=== PATIENT | female | born 1970 | race Asian ===

== ENCOUNTER 2024-06-03 09:37 | Emergency (ER) | payer MEDICAID, SELFPAY ==
--- NOTE | 2024-06-03 09:40 | EKG_ITS ---
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
[2024-06-03 09:59] VITALS: BP 153/72; PULSE 82; RESP 16; TEMP 36.8; O2SAT 95; BMI 26.7
--- NOTE | 2024-06-03 10:13 | XR_ITS ---
Examination: PA lateral chest 2 views TECHNIQUE: Upright PA lateral chest 2 views Exam date and time: June 03, 2024 10:44 AM Comparison December 05, 2022 INDICATIONS: Chest pain today FINDINGS: Mild heart failure Mild enlargement cardiac contour Prominent vascular congestion with fluid in the fissures on the lateral view Pneumonia versus mild edema at the left lung base IMPRESSION: Mild heart failure Pneumonia versus mild edema at the left lung base clinical correlation advised
--- NOTE | 2024-06-03 10:13 | XR_ITS ---
Examination: AP pelvis single view TECHNIQUE: AP pelvis single view Exam date and time: June 03, 2024 1047 hours INDICATIONS: Patient fell today with into the pelvis, pelvic pain FINDINGS: Severe osteopenia No hip fractures or hip dislocations Bones of the pelvis intact IMPRESSION: No acute hip or pelvic fracture Given the severe osteopenia, suggest short-term follow-up AP pelvis as clinically warranted
--- NOTE | 2024-06-03 10:13 | XR_ITS ---
Examination: CT brain head without contrast. 2-D sagittal coronal reconstructions Date and time of exam:June 03, 2024 1023 hours INDICATIONS: Onset dizziness today CTDI: vol (mGy):45.5 DLP: (mGycm):919 Technique: Multiple CT axial sections of the brain have been obtained, 5 mm slice thickness. Contrast has not been administered. 2-D sagittal, coronal reconstructions have been obtained Low dose protocols were performed. One or more of the following dose reduction techniques were used; automated exposure control, adjustment of the mA and/or KV according to patient size, use of iterative reconstruction technique. Findings: No significant ventricular enlargement. Intra-axial or extra-axial hemorrhage density is not seen. No mass effect or midline shift Basal cisterns are not remarkable. Fourth ventricle is midline. Cranial vault intact. Heavy right vertebral artery calcification Impression: Negative for acute hemorrhage, mass effect or midline shift Heavy right vertebral artery calcification, consider carotid vertebral Doppler sonography follow-up
--- NOTE | 2024-06-03 10:14 | PD.EDRME ---
Rapid Medical Screening Exam RME Arrival date/time: 06/03/24 09:37 54-year-old female presents emerged part with complaints of syncopal episode today Chief Complaint: Syncope / Near Syncope Time Seen by Provider: 06/03/24 09:40 Vital signs: Vital Signs Temperature 98.2 F 06/03/24 09:59 Pulse Rate 82 06/03/24 09:59 Respiratory Rate 16 06/03/24 09:59 Blood Pressure 153/72 H 06/03/24 09:59 Pulse Oximetry (%) 95 06/03/24 09:59 Oxygen Delivery Method Room Air 06/03/24 09:59
[2024-06-03 11:07] LABS: Basophils % (Auto) 0 % (0-2.5); Eosinophils # (Auto) 0.2 Thou/mm3 (0.0-0.5); Eosinophils % (Auto) 2 % (0-10); Hemoglobin 11.2 g/dL (12.0-16.0); Immature Granulocytes % (Auto) 1 % (0-0); Immature Granulocytes Auto 0.04 Thou/mm3 (0.00-0.00); Lymphocytes # (Auto) 1.1 Thou/mm3 (1.0-4.8); Lymphocytes % (Auto) 15 % (10-50); Mean Corpuscular HGB Conc 32.9 g/dl (31.0-37.0); Mean Corpuscular Hemoglobin 33.3 pg (25.0-35.0); Mean Corpuscular Volume 101 fL (80-100); Monocytes # (Auto) 0.5 Thou/mm3 (0.0-0.8); Monocytes % (Auto) 6 % (0-12); Neutrophils # (Auto) 5.5 Thou/mm3 (1.8-7.7); Neutrophils % (Auto) 76 % (37-80); Nucleated Red Blood Cell % 0 /100 WBC (0); Platelet Count 172 Thou/mm3 (140-440); RDW Standard Deviation 54.4 fL (36.4-46.3); Red Blood Count 3.36 Miln/mm3 (4.00-5.20); White Blood Count 7.3 Thou/mm3 (3.6-11.0)
[2024-06-03 11:19] LABS: Partial Thromboplastin Time 25.6 Seconds (22.0-36.0); Prothrombin Time 11.3 Seconds (9.0-12.2)
[2024-06-03 11:24] LABS: Alanine Aminotransferase 12 U/L (10-49); Albumin, Serum 3.7 gm/dL (3.5-5.0); Albumin/Globulin Ratio 1.3 (1.2-2.2); Alkaline Phosphatase 86 U/L (46-116); Anion Gap 9 (7-16); Aspartate Amino Transferase 22 U/L (0-34); BUN/Creatinine Ratio 7 Ratio (12-20); Bilirubin,Total 0.7 mg/dL (0.3-1.2); Blood Urea Nitrogen 47 mg/dL (9-23); Calcium 9.4 mg/dL (8.3-10.6); Calcium (Corrected) 9.6 mg/dL (8.5-10.1); Carbon Dioxide 31.4 mMol/L (20.0-31.0); Chloride 96 mMol/L (98-107); Creatinine (Component) 6.4 mg/dL (0.6-1.3); Estimated Creatinine Clearance 9.4 mL/min (>60); Globulin 2.8 gm/dL (2.3-3.5); Glucose 137 mg/dL (74-106); Osmolality,Calculated 286 (275-295); Potassium 4.8 mMol/L (3.4-5.1); Sodium 136 mMol/L (136-145); Total Protein 6.5 gm/dL (5.7-8.2); Troponin I 0.038 ng/mL (0.0-0.045); eGFR 7 See Note
[2024-06-03 11:26] LABS: B-Type Natriuretic Peptide 3107 pg/mL (0-100)
--- NOTE | 2024-06-03 13:01 | EDNOTE_ITS ---
ED Syncope RME/HPI General Chief Complaint: Syncope / Near Syncope Stated Complaint: Syncopal episode this morning Time Seen by Provider: 06/03/24 09:40 Arrival date/time: 06/03/24 09:37 THis is a 54 year old male with complaints of fall that happened this morning. Patient reports that she was standing and looking at her phone and fell to her left side. Patient denies loss of consciousness. Patient complains of left hip pain. Patient reports that she has had leg swelling for the past 2 weeks. Patient also reports symptoms of a cough and runny nose for the past week. Patient reports that last week she had diarrhea. Patient's primary doctor is [facility]. 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 Patient has a history of T2DM on insulin, HTN, history of nephrolithiasis, end stage renal disease on dialysis. Patient reports that she is supposed to have dialysis today at 2 PM. RME / HPI RME / HPI narrative: 06/03/24 09:37 54-year-old female presents emerged part with complaints of syncopal episode today Related Data Home Medications ?Medication ?Instructions ?Recorded ?Confirmed No Known Home Medications 04/24/23 04/24/23 Allergies Allergy/AdvReac Type Severity Reaction Status Date / Time No Known Allergies Allergy Verified 04/25/23 13:53 Review of Systems Review of Systems Systems Reviewed: All systems reviewed, normal except as documented Past Medical History Past Medical History NEUROLOGIC: Negative Seizures CARDIAC: Positive Hypercholesterolemia; Negative Cardiac Disorders or Congestive Heart Failure RESPIRATORY: Negative Chronic Obstructive Pulmonary Disease (COPD) or Asthma GENITOURINARY: Positive Kidney Stones; Negative Renal Disease ENDOCRINE: Positive Endocrine Disorders and Diabetes Mellitus Type 2; Negative Diabetes Mellitus Type 1 HEMATOLOGIC: Negative Sickle Cell Disease OTHER HISTORY: Positive Hospitalization; Negative Autoimmune Disease, Blood Transfusions, Blood Transfusion Reaction or Anesthesia Reactions Family History FAMILY HISTORY: Positive Family Cardiac Disorders; Negative Family Psychiatric Problems, Family Respiratory Disorders, Family Gastrointestinal Problems, Family Cancer, Family Surgery or Family Anesthesia Reaction Surgical History SURGICAL: Positive Tubal Ligation Social History SMOKING STATUS: Never smoker SECOND HAND EXPOSURE: No SUBSTANCE USE: does not use ED Exam General General appearance: Present alert and in no apparent distress Head Head exam: Present atraumatic Eye Eye exam: Present normal appearance, PERRL and EOMI ENT ENT exam: Present normal exam, normal oropharynx and mucous membranes moist Neck Neck exam: Present normal inspection, full ROM and trachea midline Chest Chest inspection: Present normal inspection and symmetric chest wall rise Respiratory Respiratory exam: Present normal lung sounds bilaterally Cardiovascular Cardiovascular exam: Present regular rate, normal rhythm and normal heart sounds Abdominal Exam Abdominal exam: Present soft and other (nontender ) Extremities Exam Extremities exam: Present normal inspection and full ROM Back Exam Back exam: Present normal inspection and full ROM Neurological Exam Neurological exam: Present alert, oriented X3 and CN II-XII intact Psychiatric Psychiatric exam: Present normal affect and normal mood Skin Skin exam: Present warm, dry, intact and normal color Course Quality Measures none Orders Category Date Time Status Bedside COVID-19 Antigen Test NOW Care 06/03/24 13:22 Completed Bedside Influenza A&B Antigen Test NOW Care 06/03/24 13:22 Completed EKG (ED ONLY) *Do not use* NOW Care 06/03/24 09:[address] head/brain wo con Stat Exams 06/03/24 10:13 Completed EKG (ED Only) Stat Exams 06/03/24 09:40 Draft XR chest 2V Stat Exams 06/03/24 10:13 Completed XR pelvis 1-2V Stat Exams 06/03/24 10:13 Completed B-Type Natriuretic Peptide Stat Lab 06/03/24 10:40 Completed CBC Stat Lab 06/03/24 10:40 Completed Comprehensive Metabolic Panel Stat Lab 06/03/24 10:40 Completed Partial Thromboplastin Time Stat Lab 06/03/24 10:40 Completed Prothrombin Time with INR Stat Lab 06/03/24 10:40 Completed Troponin I Stat Lab 06/03/24 10:40 Completed Troponin I Stat Lab 06/03/24 13:54 Completed Acetaminophen Tab [Tylenol ES Tab] Med 06/03/24 13:25 Discontinued 1,000 mg PO X1 ONE Furosemide Inj [Lasix Inj] Med 06/03/24 13:25 Discontinued 40 mg IVP X1 ONE Furosemide [Lasix] Med 06/03/24 13:32 Discontinued 40 mg PO X1 ONE Vital Signs Vital signs: Vital Signs Temperature 98.2 F 06/03/24 09:59 Pulse Rate 82 06/03/24 09:59 Respiratory Rate 16 06/03/24 09:59 Blood Pressure 153/72 H 06/03/24 09:59 Pulse Oximetry (%) 95 06/03/24 09:59 Oxygen Delivery Method Room Air 06/03/24 09:59 Procedures -ED EKG Interpretation #1: Date of EK06/03/24 Time of EK:04 Rate: 82 Interpretation: Interpreted by me (sinus rhythm with some st depression lateral leads ) EKG Impression: No ectopy, Normal QRS and Normal intervals Syncope MDM Narrative MDM Narrative:: THis is a 54 year old male with complaints of fall that happened this morning. Patient reports that she was standing and looking at her phone and fell to her left side. Patient denies loss of consciousness. Patient complains of left hip pain. Patient reports that she has had leg swelling for the past 2 weeks. Patient also reports symptoms of a cough and runny nose for the past week. Patient reports that last week she had diarrhea. Patient's primary doctor is [facility]. 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 Patient has a history of T2DM on insulin, HTN, history of nephrolithiasis, end stage renal disease on dialysis. Patient reports that she is supposed to have dialysis today at 2 PM. CBC unremarkable. PT/INR unremarkable. bun/creatinine 47 and 6.4. BNP 3107, initial troponin is 0.038 and repeat was 0.034. Patient denies chest pain and shortness of breath. Not hypoxic or short of breath on assessment. Patient is supposed to have dialysis today. Will discharge patient to be able to get dialysis today. Patient feels comfortable with plan of care. Patient given a dose of Tylenol for pain and a dose of Lasix. Patient states she has been taking her Lasix at home. Chest x-ray shows mild edema. Do not suspect pneumonia at this time. Patient not febrile. Patient's COVID and influenza negative. Patient told to come back to the emergency room if symptoms change or worsen. chest x rays: FINDINGS: Mild heart failure Mild enlargement cardiac contour Prominent vascular congestion with fluid in the fissures on the lateral view Pneumonia versus mild edema at the left lung base IMPRESSION: Mild heart failure Pneumonia versus mild edema at the left lung base clinical correlation advised ct head: Findings: No significant ventricular enlargement. Intra-axial or extra-axial hemorrhage density is not seen. No mass effect or midline shift Basal cisterns are not remarkable. Fourth ventricle is midline. Cranial vault intact. Heavy right vertebral artery calcification Impression: Negative for acute hemorrhage, mass effect or midline shift Heavy right vertebral artery calcification, consider carotid vertebral Doppler sonography follow-up pelvis x ray: FINDINGS: Severe osteopenia No hip fractures or hip dislocations Bones of the pelvis intact IMPRESSION: No acute hip or pelvic fracture Given the severe osteopenia, suggest short-term follow-up AP pelvis as clinically warrante Patient data External records reviewed:: [facility] previous records Clinical information provided by:: patient Social determinants that could affect healthcare access:: none Patient has the following chronic illnesses:: kidney failure on dialysis How is presenting disease/condition affected by chronic disease/condition?: exacerbated by Evaluation data The following diagnostics were reviewed and interpreted by me:: lab results, radiology exam(s) and EKG tracing(s) Lab and/or radiology exams considered but not ordered:: none Interpretation Summary: see note Medications / Prescriptions Medications or Prescriptions considered but not ordered:: none Medication administrations:: Medication Administration History Discontinued Medications Acetaminophen (Acetaminophen 500 Mg Tablet) 1,000 mg PO X1 ONE Stop: 06/03/24 13:26 Last Admin: 06/03/24 13:43 Dose: 1,000 mg Documented By: ARF Furosemide (Furosemide Inj 10 Mg/Ml 4ml Vial) 40 mg IVP X1 ONE Stop: 06/03/24 13:26 Last Admin: 06/03/24 13:46 Dose: Not Given Documented By: ARF Non-Admin Reason: Discontinued Furosemide (Furosemide 40 Mg Tablet) 40 mg PO X1 ONE Stop: 06/03/24 13:33 Last Admin: 06/03/24 13:44 Dose: 40 mg Documented By: ARF see [facility] Consultations Consultation(s) initiated? (list below): No Diagnosis Syncope Differential Diagnosis: syncope due to orthostatic hypotension, subarachnoid hemorrhage, dehydration and other (fluid overload, chf exacerbation ) Most likely diagnosis given after review of the tests above:: early chf, fluid overload Admission Indicated Admission indicated?: not indicated Admission Request Was there a request for admission?: No Disposition Plan Disposition Plan: Discharge Discharge Attestation Discharge Attestation: The patient and all family members were given an opportunity to ask questions and understood the discharge instructions. Discharge instructions specifically effects, indications for sooner follow up or return to the emergency department, and the expected course of current diagnosis. Patient condition: Stable Discharge Plan Plan Patient Disposition: HOME (Self Care) Patient condition on transfer: Stable Prescriptions/Referrals Prescriptions/Med Rec: No Action No Known Home Medications Referrals: Miguel Yoder MD [Primary Care Provider] - In 1 week Problem List Clinical Impression: Chronic kidney disease with end stage renal failure on dialysis, Hypertension Patient/Caregiver Discharge Instructions Discharge Activity: activity as tolerated Education Materials: CKD Dc, ED High Blood Pressure ... Additional Instructions: Please keep scheduled appointment for dialysis today. Come back to the emergency room if symptoms change or worsen. Follow-up with primary provider in 1 to 2 days. Print Language: Polish Stand Alone Forms: Samantha Award Info., Patient Portal Info Letter PA/GENERATOR OPERATOR STRAIGHT BEVEL GEAR Supervising Physician PA/GENERATOR OPERATOR STRAIGHT BEVEL GEAR Supervising Physician: rica
[2024-06-03] MEDS: ACETAMINOPHEN 500 MG TABLET 1000 MG PO (13:43)
[2024-06-03 13:44] VITALS: BP 153/72; PULSE 80
[2024-06-03] MEDS: Furosemide 40 MG TABLET PO (13:44)
[2024-06-03 14:22] LABS: Troponin I 0.034 ng/mL (0.0-0.045)
== END 2024-06-03 14:37 | disposition home or self-care (01) ==
PROVIDERS: Nurse Practitioner Family; Nurse Practitioner Primary Care; Emergency Provider Emergency Medicine; PCP Family Medicine
DX: I13.2 Hypertensive heart and chronic kidney disease with heart failure and with stage 5 chronic kidney disease, or end stage renal disease (principal); E11.22 Type 2 diabetes mellitus with diabetic chronic kidney disease; N18.6 End stage renal disease; I50.9 Heart failure, unspecified; I67.2 Cerebral atherosclerosis; Z99.2 Dependence on renal dialysis; E78.00 Pure hypercholesterolemia, unspecified; R94.31 Abnormal electrocardiogram [ECG] [EKG]; Z79.4 Long term (current) use of insulin
CPT/HCPCS: 36415; 70450; 71046; 72170; 80053; 81001; 83880; 84484; 85025; 85610; 85730; 87400; 87811; 93005; 99284; A9270

== ENCOUNTER 2024-08-01 19:20 | Emergency (ER) | payer MEDICAID, SELFPAY ==
[2024-08-01 19:21] VITALS: BMI 29.2
[2024-08-01 19:38] VITALS: BP 168/84; PULSE 88; RESP 22; TEMP 37.8; O2SAT 96
--- NOTE | 2024-08-01 19:42 | PD.EDRME ---
Rapid Medical Screening Exam RME Arrival date/time: 08/01/24 19:20 54 yo f present to ED for c/o of swelling/abd pain, advised by PCP to come to be evaluated I have greeted and performed a focused initial assessment of this patient. A comprehensive ED assessment and evaluation of the patient, analysis of all test results, and completion of the medical decision making process will be conducted by additional ED providers. Chief Complaint: Abdominal Pain Time Seen by Provider: 08/01/24 19:25 Vital signs: Vital Signs Temperature 100.0 F 08/01/24 19:38 Pulse Rate 88 08/01/24 19:38 Respiratory Rate 22 H 08/01/24 19:38 Blood Pressure 168/84 H 08/01/24 19:38 Pulse Oximetry (%) 96 08/01/24 19:38 Oxygen Delivery Method Room Air 08/01/24 19:38
--- NOTE | 2024-08-01 19:43 | EKG_ITS ---
[facility] Test Date: 2024-08-01 Pat Name: CLAUDE GU Department: Room: - Gender: Female Icu Rn: : 1970 Requested By: Bhaskar Stewart Order Number: [id number] Reading MD: Bhaskar Stewart Measurements Intervals [place] Rate: 87 P: 70 [place]: 173 QRS: 122 QRSD: 131 T: -5 QT: 395 QTc: 477 Interpretive Statements SINUS RHYTHM INTRAVENTRICULAR CONDUCTION DELAY [130+ ms QRS DURATION] POSSIBLE RIGHT VENTRICULAR HYPERTROPHY [SOME/ALL OF: PROMINENT R IN V1, LATE TRANSITION, RAD, BROOKE, SSS] POSSIBLE ANTERIOR MYOCARDIAL INFARCTION , PROBABLY OLD [30 ms Q WAVE IN V3/V4, OR R < 0.2 mV IN V4] Compared to ECG 06/03/2024 10:04:05 Intraventricular conduction delay now present Myocardial infarct finding now present T-wave abnormality no longer present /store/S0/[id number]/[id number].pdf
[2024-08-01 21:03] LABS: Basophils % (Auto) 1 % (0-2.5); Eosinophils # (Auto) 0.1 Thou/mm3 (0.0-0.5); Eosinophils % (Auto) 1 % (0-10); Immature Granulocytes % (Auto) 0 % (0-0); Immature Granulocytes Auto 0.01 Thou/mm3 (0.00-0.00); Lymphocytes # (Auto) 0.9 Thou/mm3 (1.0-4.8); Lymphocytes % (Auto) 17 % (10-50); Mean Corpuscular HGB Conc 32.4 g/dl (31.0-37.0); Mean Corpuscular Hemoglobin 31.9 pg (25.0-35.0); Mean Corpuscular Volume 98 fL (80-100); Monocytes # (Auto) 0.6 Thou/mm3 (0.0-0.8); Monocytes % (Auto) 11 % (0-12); Neutrophils % (Auto) 71 % (37-80); Nucleated Red Blood Cell % 0 /100 WBC (0); Platelet Count 121 Thou/mm3 (140-440); RDW Standard Deviation 52.8 fL (36.4-46.3); Red Blood Count 3.76 Miln/mm3 (4.00-5.20); White Blood Count 5.6 Thou/mm3 (3.6-11.0)
[2024-08-01 21:29] LABS: B-Type Natriuretic Peptide > 3280 pg/mL (0-100)
[2024-08-01 21:30] LABS: Alanine Aminotransferase 15 U/L (10-49); Albumin, Serum 3.4 gm/dL (3.5-5.0); Albumin/Globulin Ratio 1.1 (1.2-2.2); Alkaline Phosphatase 87 U/L (46-116); Anion Gap 11 (7-16); Aspartate Amino Transferase 34 U/L (0-34); BUN/Creatinine Ratio 5 Ratio (12-20); Bilirubin,Total 0.8 mg/dL (0.3-1.2); Blood Urea Nitrogen 34 mg/dL (9-23); Calcium 8.7 mg/dL (8.3-10.6); Calcium (Corrected) 9.2 mg/dL (8.5-10.1); Carbon Dioxide 30.3 mMol/L (20.0-31.0); Chloride 95 mMol/L (98-107); Creatinine (Component) 6.2 mg/dL (0.6-1.3); Estimated Creatinine Clearance 10.2 mL/min (>60); Globulin 3.2 gm/dL (2.3-3.5); Glucose 110 mg/dL (74-106); Lipase 40 U/L (12-53); Osmolality,Calculated 280 (275-295); Potassium 4.5 mMol/L (3.4-5.1); Sodium 136 mMol/L (136-145); Total Protein 6.6 gm/dL (5.7-8.2); eGFR 8 See Note
[2024-08-01 21:37] LABS: Troponin I 0.057 ng/mL (0.0-0.045)
--- NOTE | 2024-08-01 22:38 | XR_ITS ---
Examination: CT abdomen and pelvis without contrast. Coronal 3-D reconstructions. Sagittal 2-D reconstructions. Date and time of exam:August 01, 2024 1112 hrs. Indications: Onset abdominal pain today, history kidney stones CTDI: vol (mGy): 10.2 DLP: (mGycm): 565 Technique: Axial images of the abdomen have been obtained, 3 mm slice thickness Intravenous contrast material has not been administered. Low dose protocols were performed. One or more of the following dose reduction techniques were used; automated exposure control, adjustment of the mA and/or KV according to patient size, use of iterative reconstruction technique. Findings: Moderate vascular congestion small right pleural effusion Mild to moderate enlargement cardiac contour Liver irregular in contour, anasarca Mild ascites No definite gallstones No pancreatic mass Heavy renal arterial calcification, no hydronephrosis or ureteral calculi Aorta normal size Normal appendix No bowel obstruction Atrophic uterus No adnexal mass Urinary bladder wall thickening up to 8 mm Significant osteopenia Impression: Moderate vascular congestion with small right pleural effusion Mild to moderate enlargement cardiac contour Cirrhosis Anasarca Mild ascites No bowel obstruction
[2024-08-02 01:08] VITALS: BP 182/85; PULSE 90
[2024-08-02] MEDS: Furosemide 40 MG TABLET 80 MG PO (01:08)
--- NOTE | 2024-08-02 01:14 | EDNOTE_ITS ---
ED Abdominal Pain RME/HPI General Chief Complaint: Abdominal Pain Stated complaint: SENT BY DR HUBER FOR POSS PARACENTESIS;ABD PAIN Time seen by provider: 08/01/24 19:25 Arrival date/time: 08/01/24 19:20 Source: patient Mode of arrival: ambulatory Limitations: no limitations RME / HPI RME / HPI narrative: 08/01/24 19:20 54 yo f present to ED for c/o of swelling/abd pain, advised by PCP to come to be evaluated I have greeted and performed a focused initial assessment of this patient. A comprehensive ED assessment and evaluation of the patient, analysis of all test results, and completion of the medical decision making process will be conducted by additional ED providers. DR LAMB MAIN ED EVALUATION: 54-year-old female patient with a history of end-stage renal disease on hemodialysis here for evaluation and treatment of abdominal swelling. Per patient Dr. Yap sent her in for possible paracentesis. Patient states she still makes urine. Takes furosemide 40 twice daily at home. Complains of shortness of breath which is chronic and unchanged. Related Data Previous Rx's ?Medication ?Instructions ?Recorded oseltamivir 75 mg capsule (Tamiflu) 75 mg PO BID 5 days #10 caps 08/02/24 Allergies Allergy/AdvReac Type Severity Reaction Status Date / Time No Known Allergies Allergy Verified 04/25/23 13:53 Review of Systems Review of Systems Systems Reviewed: All systems reviewed, normal except as documented Past Medical History Past Medical History NEUROLOGIC: Negative Neurological Disorders or Seizures CARDIAC: Positive Hypercholesterolemia, Edema and Hypertension (not taking meds after HD pt stated no need for meds anymore); Negative Cardiac Disorders or Congestive Heart Failure RESPIRATORY: Negative Chronic Obstructive Pulmonary Disease (COPD) or Asthma GASTROINTESTINAL: Negative Gastrointestinal Disorders or Hepatitis GENITOURINARY: Positive Genitourinary Disorders, Kidney Stones and Dialysis (MWF); Negative Renal Disease REPRODUCTIVE: Positive Previous Pregnancies MUSCULOSKELETAL: Positive Musculoskeletal Disorders and Arthritis ENT: Positive Cataracts (BILATERAL) ENDOCRINE: Positive Endocrine Disorders and Diabetes Mellitus Type 2; Negative Diabetes Mellitus Type 1 HEMATOLOGIC: Positive Blood Disorders and Anemia; Negative Sickle Cell Disease OTHER HISTORY: Positive Hospitalization and Chicken Pox; Negative Autoimmune Disease, Shingles, Blood Transfusions, Blood Transfusion Reaction, Anesthesia Reactions or Cancer Family History FAMILY HISTORY: Positive Family Cardiac Disorders; Negative Family Psychiatric Problems, Family Respiratory Disorders, Family Gastrointestinal Problems, Family Cancer, Family Surgery or Family Anesthesia Reaction Surgical History SURGICAL: Positive Tubal Ligation Social History SMOKING STATUS: Never smoker SECOND HAND EXPOSURE: No SUBSTANCE USE: does not use ED Exam Narrative Physical exam: GENERAL APPEARANCE: alert and oriented x 4, well-developed, well-nourished, no acute distress VITALS: All vitals were reviewed and the pulse ox is 95% on room air, which is normal according to my interpretation. HEENT: Normocephalic, atraumatic; pupils equal, round, reactive to light; EOMI; mucous membranes pink, moist; oropharynx clear NECK: Supple LUNGS: CTABL; no wheezes, no rales, no rhonchi HEART: Regular rate, regular rhythm; normal S1, S2; no murmurs ABDOMEN: non distended; normal BS; soft, no tenderness, no guarding, no rebound; no masses, no organomegaly, no hernia BACK: no CVA tenderness EXTREMITIES: atraumatic; no edema NEUROLOGIC: awake; alert and oriented x4; cranial nerves II-XII grossly intact; no focal sensory or motor deficits PSYCHIATRIC: appropriate mood and affect SKIN: warm, dry, normal color; no rashes General Limitations: Present no limitations Course Course Course Narrative: Discussed CT findings with patient. Small pleural effusion, mild ascites. Neither fluid collection large enough for draining. Patient incidentally found to be influenza B positive. Quality Measures none Orders Category Date Time Status Bedside COVID-19 Antigen Test NOW Care 08/02/24 00:12 Completed Bedside Influenza A&B Antigen Test NOW Care 08/02/24 00:12 Completed EKG (ED ONLY) *Do not use* NOW Care 08/01/24 19:[address] abdomen pelvis wo con Stat Exams 08/01/24 22:38 Completed EKG (ED Only) Stat Exams 08/01/24 19:43 Draft BNP [B-Type Natriuretic Peptide] Stat Lab 08/01/24 20:28 Completed CBC Stat Lab 08/01/24 20:28 Completed CMP [Comprehensive Metabolic Panel] Stat Lab 08/01/24 20:28 Completed Lipase Stat Lab 08/01/24 20:28 Completed Troponin I Stat Lab 08/01/24 20:28 Completed Furosemide [Lasix] Med 08/02/24 00:48 Discontinued 80 mg PO X1 ONE Oseltamivir [Tamiflu] Med 08/02/24 01:58 Discontinued 75 mg PO X1 ONE Vital Signs Vital signs: Vital Signs Temperature 100.0 F 08/01/24 19:38 Pulse Rate 88 08/01/24 19:38 Respiratory Rate 22 H 08/01/24 19:38 Blood Pressure 168/84 H 08/01/24 19:38 Pulse Oximetry (%) 96 08/01/24 19:38 Oxygen Delivery Method Room Air 08/01/24 19:38 Procedures -ED Procedure Comment EKG manual reading, my interpretation 08/01/241955: sinus rhythm, rate: 87 bpm, no ST elevation, no acute ischemic changes, interpreted as normal Abdominal Pain MDM MDM Narrative MDM Narrative:: Scribe Attestation: I, Arabella Solis, am scribing for and in the presence alexi Lamb. Provider Notation: Although this document has been carefully reviewed, there may still be some phonetic and other typographical errors. These errors are purely grammatical due to imperfections in the software program and should not be construed in any way to compromise the substance of the patient's medical care during this visit. Patient data External records reviewed:: [facility] previous records Clinical information provided by:: patient Social determinants that could affect healthcare access:: none Patient has the following chronic illnesses:: See PMH How is presenting disease/condition affected by chronic disease/condition?: uneffected by Evaluation data The following diagnostics were reviewed and interpreted by me:: lab results and radiology exam(s) Lab and/or radiology exams considered but not ordered:: none Interpretation Summary: I personally reviewed the radiology data and agree with the radiologist's interpretation. Examination: CT abdomen and pelvis without contrast. Coronal 3-D reconstructions. Sagittal 2-D reconstructions. Date and time of exam:August 01, 2024 1112 hrs. Indications: Onset abdominal pain today, history kidney stones Findings: Moderate vascular congestion small right pleural effusion Mild to moderate enlargement cardiac contour Liver irregular in contour, anasarca Mild ascites No definite gallstones No pancreatic mass Heavy renal arterial calcification, no hydronephrosis or ureteral calculi Aorta normal size Normal appendix No bowel obstruction Atrophic uterus No adnexal mass Urinary bladder wall thickening up to 8 mm Significant osteopenia Impression: Moderate vascular congestion with small right pleural effusion Mild to moderate enlargement cardiac contour Cirrhosis Anasarca Mild ascites No bowel obstruction Dictated By: Kong Aguilar MD Medications / Prescriptions Medications or Prescriptions considered but not ordered:: none Medication administrations:: Medication Administration History Discontinued Medications Furosemide (Furosemide 40 Mg Tablet) 80 mg PO X1 ONE Stop: 08/02/24 00:49 Last Admin: 08/02/24 01:08 Dose: 80 mg Documented By: CCT Oseltamivir Phosphate (Oseltamivir 75 Mg Capsule) 75 mg PO X1 ONE Stop: 08/02/24 01:59 Last Admin: 08/02/24 02:13 Dose: 75 mg Documented By: SE as above Consultations Consultation(s) initiated? (list below): No Diagnosis Differential diagnosis abdominal pain: abdominal pain, diverticulitis, gastroenteritis and pancreatitis Most likely diagnosis given after review of the tests above:: See clinical impression below Admission Indicated Admission indicated?: not indicated Admission Request Was there a request for admission?: No Disposition Plan Disposition Plan: Discharge Discharge Attestation Discharge Attestation: The patient and all family members were given an opportunity to ask questions and understood the discharge instructions. Discharge instructions specifically effects, indications for sooner follow up or return to the emergency department, and the expected course of current diagnosis. Patient condition: Stable Discharge Plan Plan Patient Disposition: HOME (Self Care) Prescriptions/Referrals Prescriptions/Med Rec: New oseltamivir [Tamiflu] 75 mg capsule 75 mg PO BID 5 Days Qty: 10 0RF Referrals: Diego Yap MD [Primary Care Provider] - In 1 week Problem List Clinical Impression: Influenza B, Anasarca, Abdominal ascites, Pleural effusion Patient/Caregiver Discharge Instructions Education Materials: ED Ascites, ED Influenza (Adult) Print Language: [place] Stand Alone Forms: Samantha Award Info., Patient Portal Info Letter
[2024-08-02 01:24] VITALS: BP 182/85; PULSE 88; RESP 16; TEMP 37.4; O2SAT 95
[2024-08-02] MEDS: OSELTAMIVIR 75 MG CAPSULE PO (02:13)
== END 2024-08-02 02:16 | disposition home or self-care (01) ==
PROVIDERS: Physician Assistant; Emergency Provider Emergency Medicine; PCP Internal Medicine
DX: J10.1 Influenza due to other identified influenza virus with other respiratory manifestations (principal); R18.8 Other ascites; J90 Pleural effusion, not elsewhere classified; I45.89 Other specified conduction disorders; K74.60 Unspecified cirrhosis of liver; E78.00 Pure hypercholesterolemia, unspecified; I13.11 Hypertensive heart and chronic kidney disease without heart failure, with stage 5 chronic kidney disease, or end stage renal disease; N18.6 End stage renal disease; Z99.2 Dependence on renal dialysis
CPT/HCPCS: 36415; 74176; 80053; 83690; 83880; 84484; 85025; 87400; 87811; 93005; 99284; A9270

== ENCOUNTER 2024-08-07 23:56 | Inpatient (IN) | payer MEDICAID, SELFPAY ==
[2024-08-08] VITALS (68 sets, daily range): BP systolic 105–155; BP diastolic 53–98; PULSE 66–98; RESP 3–100; TEMP 33.8–40.5; O2SAT 73–100; BMI 30.2
--- NOTE | 2024-08-08 00:28 | XR_ITS ---
Examination: AP chest single view FINDINGS: AP portable upright chest single view Exam date 9: August 08, 2024 at 0038 hours Comparison June 03, 2024 INDICATION: Coughing sepsis today. FINDINGS: Mild heart failure Mild enlargement of cardiac contour with prominent vascular congestion Consider early pneumonia at the right lung base Moderate osteopenia IMPRESSION: Mild heart failure Consider early pneumonia at the right lung base, clinical correlation is advised
--- NOTE | 2024-08-08 00:28 | PD.EDAMS ---
Altered Mental Status RME/HPI General Chief Complaint: Altered Mental Status Stated Complaint: AMS Time Seen by Provider: 08/08/24 00:03 Arrival date/time: 08/07/24 23:56 RME / HPI RME / HPI narrative: Dr. Rubin?s Main ED Evaluation: 54yo female with a history of DMII, HTN, ESRD on HD (M/W/F), cirrhosis BIBA from home presents to the ED for a chief complaint of altered mental status. Per EMS, family on scene noted the patient has been altered since 0800. No other history. Full ROS is unobtainable due to the patient's AMS. Related Data Allergies Allergy/AdvReac Type Severity Reaction Status Date / Time No Known Allergies Allergy Verified 04/25/23 13:53 Review of Systems Review of Systems ROS Unobtainable: unobtainable due to mental status ED Exam Narrative Physical exam: GENERAL APPEARANCE: awake, altered, speaks in 1 word answers well-developed, well-nourished, no acute distress VITALS: All vitals were reviewed and the pulse ox is 94% on room air, which is normal according to my interpretation. Patient is febrile. HEENT: Normocephalic, atraumatic; pupils equal, round, reactive to light; EOMI; mucous membranes pink, moist; oropharynx clear NECK: Supple LUNGS: CTABL; no wheezes, no rales, no rhonchi HEART: Regular rate, regular rhythm; normal S1, S2; no murmurs ABDOMEN: non distended; normal BS; firm, generalized abdominal tenderness, voluntary guarding, no rebound; no masses, no organomegaly, no hernia BACK: left CVA tenderness EXTREMITIES: atraumatic; extensive erythema and hot to the touch at the RLE; 2+ pitting edema up to the mid-thigh bilaterally; ringworm-like lesion to the right anterior groin NEUROLOGIC: awake; altered; cranial nerves II-XII grossly intact; no focal sensory or motor deficits; no brudzinski or kernig sign PSYCHIATRIC: appropriate mood and affect SKIN: warm, dry, normal color; no rashes Course Course Course Narrative: 0014: Sepsis alert initiated. Orders made at this time are congruent with ED Adult Sepsis Order List. Re-evaluation is to be completed. 0051: NS IVF started. 0225: Sepsis reassessment performed consisting of lab review, vitals, physical exam including auscultation of heart, lungs, and visual evaluation of capillary refills, mucosal membranes and extremities. 0241: Spoke with the patient's son at bedside, who states the patient was complaining of leg pain and swelling yesterday. Today after he came home from work, he states the patient was weak to a point where he had to carry the patient to the bed and was altered, so he called EMS. Quality Measures Possible source: skin/soft tissue Blood cultures ordered: yes Antibiotic ordered: Yes Pertinent labs: 08/08/24 00:49 Lactic Acid 4.1 H* mMol/L (0.4-2.0) Procalcitonin 120.46 H ng/ml (0.0-0.49) sepsis Orders Category Date Time Status Bedside COVID-19 Antigen Test NOW Care 08/08/24 01:[address] Screening NOW Care 08/08/24 01:37 Completed Leather Coverer STAT Care 08/08/24 00:28 Active Continuous Pulse Oximetry STAT Care 08/08/24 00:28 Completed EKG (ED ONLY) *Do not use* NOW Care 08/08/24 00:28 Completed In and Out Catheter X1PRN Care 08/08/24 00:28 Completed Insert IV NOW Care 08/08/24 00:28 Active NPO STAT Care 08/08/24 00:28 Completed Strict Intake and Output Routine Care 08/08/24 00:[address] abdomen pelvis wo con Stat Exams 08/08/24 01:[address] head/brain wo con Stat Exams 08/08/24 00:36 Completed EKG (ED Only) Stat Exams 08/08/24 00:28 Ordered XR chest 1V portable Stat Exams 08/08/24 00:28 Completed Ammonia Stat Lab 08/08/24 00:49 Completed Arterial Blood Gas Stat Lab 08/08/24 01:28 Completed B-Type Natriuretic Peptide Stat Lab 08/08/24 00:49 Completed Blood Culture (Lab) Stat Lab 08/08/24 00:44 Completed CBC Stat Lab 08/08/24 00:49 Completed Comprehensive Metabolic Panel Stat Lab 08/08/24 00:49 Completed Drug Screen,Urine Stat Lab 08/08/24 01:23 Completed HCG,Qualitative Serum Stat Lab 08/08/24 00:49 Completed Ketone [Beta Hydroxybutyrate] Stat Lab 08/08/24 00:49 Completed LDH (Lactate Dehydrogenase) Stat Lab 08/08/24 00:49 Completed Lactate (Lactic Acid) Stat Lab 08/08/24 00:49 Completed Lipase Stat Lab 08/08/24 00:49 Completed Magnesium Stat Lab 08/08/24 00:49 Completed Partial Thromboplastin Time Stat Lab 08/08/24 00:49 Completed Phosphorous Stat Lab 08/08/24 00:49 Completed Procalcitonin Stat Lab 08/08/24 00:49 Completed Prothrombin Time with INR Stat Lab 08/08/24 00:49 Completed Troponin I Stat Lab 08/08/24 00:49 Completed Urinalysis Stat Lab 08/08/24 01:26 Completed Urine Culture Stat Lab 08/08/24 01:26 Completed Acetaminophen Ivpb [Ofirmev Inj] Med 08/08/24 00:35 Discontinued 1,000 mg in 100 ml IV NOW Acetaminophen Ivpb [Ofirmev Inj] Med 08/08/24 00:34 Discontinued 1,000 mg in 100 ml IV Q6HR Doxycycline Inj [Vibramycin Inj] 200 mg Med 08/08/24 00:33 Discontinued Sodium Chloride 0.9% 250 ml [Ns] 250 ml IV X1 Piper/Tazo Inj [Zosyn Inj] 4.5 gm Med 08/08/24 00:33 Discontinued Sodium Chloride 0.9% (P) [NS 0.9% mini bag] 100 ml IV X1 Sodium Chloride 0.9% 1000 ml [Ns] 1,000 ml Med 08/08/24 00:33 Discontinued IV 999 mls/hr Sodium Chloride 0.9% 1000 ml [Ns] 1,000 ml Med 08/08/24 02:37 Discontinued IV 999 mls/hr Vital Signs Vital signs: Vital Signs Temperature 105 F H 08/08/24 00:20 Pulse Rate 92 08/08/24 00:20 Respiratory Rate 24 H 08/08/24 00:20 Blood Pressure 144/98 H 08/08/24 00:20 Pulse Oximetry (%) 94 L 08/08/24 00:20 Oxygen Delivery Method Room Air 08/08/24 00:20 Altered Mental Status MDM Narrative MDM Narrative:: Scribe Attestation: 08/08/24 - Filiberto, Anum Yoder am scribing for and in the presence of Dr. Rubin. Patient data External records reviewed:: [facility] previous records (Per chart review, patient was seen here on 08/02/24 for abdominal ascites, and was incidentally found to have Influenza B.) Clinical information provided by:: EMS Social determinants that could affect healthcare access:: none Patient has the following chronic illnesses:: DMII, HTN, ESRD on HD, cirrhosis How is presenting disease/condition affected by chronic disease/condition?: exacerbated by Evaluation data The following diagnostics were reviewed and interpreted by me:: lab results, radiology exam(s) and EKG tracing(s) Lab and/or radiology exams considered but not ordered:: none Interpretation Summary: Bedside COVID and Influenza are negative, WBC count is normal, Lactate is elevated at 4.1, Beta Hydroxybutyrate is elevated at 1.4, PT is elevated at 15.6, INR is elevated at 1.5, PTT is normal, ABG shows metabolic alkalosis, Ammonia is less than 10, BUN is 39, Creatinine is elevated at 6.9, Glucose is 68, troponin is elevated at 0.553, Procalcitonin is elevated at 120.46, UA shows 4+ proteins and 3+ glucose, UDS is negative, according to my interpretation. CXR shows cardiomegaly, normal sharp diaphragmatic edge, no infiltrates, normal costophrenic angles, according to my interpretation EKG done at 0018, NSR, rate of 93, right axis deviation, no ectopy, QTc: 457, QRS: 445, Q waves in V1-V3, generalized ST abnormalities, no STEMI, according to my interpretation. Medications / Prescriptions Medications or Prescriptions considered but not ordered:: none Medication administrations:: Medication Administration History Acetaminophen (Acetaminophen 325 Mg Tablet) 650 mg PO Q6H PRN PRN Reason: Fever >100.3 or Pain 1-3 Stop: 09/07/24 03:23 Last Admin: 08/11/24 20:59 Dose: 650 mg Documented By: Admin: 08/10/24 04:10 Dose: 650 mg Documented By: CINTHIA Dextrose (Dextrose 50%-Water Inj 50 Ml Syringe) 25 ml IV Q15MIN PRN PRN Reason: BG 50-70 responsive npo pt Stop: 09/07/24 04:54 Dextrose (Dextrose 50%-Water Inj 50 Ml Syringe) 50 ml IV Q15MIN PRN PRN Reason: BG <50 OR BG <70 & pt unresponsive Stop: 09/07/24 04:54 Cefazolin Sodium (Ancef 2gm Ivpb) 2 gm in 100 mls @ 200 mls/hr IV TUTHSA@1600 [facility] Stop: 08/22/24 16:29 Last Admin: 08/13/24 17:31 Dose: 200 mls/hr Documented By: Infusion: 08/11/24 17:38 Dose: Infused Documented By: Admin: 08/11/24 17:08 Dose: 200 mls/hr Documented By: JALEEL Melatonin (Melatonin 3 Mg Tablet) 9 mg PO HS [facility] Stop: 09/11/24 20:59 Last Admin: 08/13/24 21:38 Dose: Not Given Documented By: CTF Non-Admin Reason: Patient Refused Admin: 08/12/24 21:53 Dose: Not Given Documented By: Non-Admin Reason: Patient Refused Metoclopramide HCl (Metoclopramide 5 Mg Tablet) 10 mg PO Q6H PRN PRN Reason: NAUSEA OR VOMITING Stop: 09/07/24 03:23 Midodrine (Midodrine 5 Mg Tablet) 10 mg PO BID [facility] Stop: 09/08/24 20:59 Last Admin: 08/13/24 21:38 Dose: 10 mg Documented By: Admin: 08/13/24 16:09 Dose: Not Given Documented By: GE Non-Admin Reason: see BP Admin: 08/12/24 21:47 Dose: 10 mg Documented By: Admin: 08/12/24 08:56 Dose: Not Given Documented By: MR Non-Admin Reason: Vital Signs Admin: 08/11/24 20:34 Dose: Not Given Documented By: RC Non-Admin Reason: BP: 147/71. HOLD Admin: 08/11/24 08:28 Dose: 10 mg Documented By: Admin: 08/10/24 21:38 Dose: Not Given Documented By: AC Non-Admin Reason: hold per MD Jerome Admin: 08/10/24 08:48 Dose: 10 mg Documented By: Admin: 08/09/24 20:29 Dose: 10 mg Documented By: Discontinued Medications Hydrocodone Bitart/Acetaminophen (Hydrocodone/Apap 5/325 Tablet) 1 tab PO X1 ONE Stop: 08/08/24 14:56 Last Admin: 08/08/24 15:00 Dose: 1 tab Documented By: MM Epoetin Darrell (Epoetin Darrell-Epbx Inj 10,000 Unit/Ml Vial (Esrd)) 10,000 unit SC X1 ONE Stop: 08/08/24 09:44 Last Admin: 08/08/24 15:34 Dose: 10,000 unit Documented By: ALLA Furosemide (Furosemide Inj 10 Mg/Ml 4ml Vial) 40 mg IVP X1 ONE Stop: 08/12/24 10:02 Last Admin: 08/12/24 11:25 Dose: 40 mg Documented By: Heparin Sodium (Porcine) (Heparin Sod Inj 5000 Unit/Ml Vial) 5,000 unit SC Q12HR LIU Stop: 08/22/24 08:59 Last Admin: 08/10/24 08:49 Dose: 5,000 unit Documented By: TOMÁS Co-signed By: ULISES Admin: 08/09/24 20:42 Dose: 5,000 unit Documented By: Co-signed By: LATANYA Admin: 08/09/24 08:48 Dose: 5,000 unit Documented By: LANCE Co-signed By: JAILYN Admin: 08/08/24 20:57 Dose: 5,000 unit Documented By: LATANYA Co-signed By: Admin: 08/08/24 09:12 Dose: 5,000 unit Documented By: YAW Co-signed By: ANDRES Heparin Sodium (Porcine) (Heparin Sod Inj 1000 Unit/Ml Vial 10 Ml) 3,500 unit INDWELLCAT X1 ONE Stop: 08/08/24 13:22 Last Admin: 08/08/24 19:06 Dose: Not Given Documented By: LANCE Non-Admin Reason: HD Sodium Chloride (Ns) 1,000 mls @ 999 mls/hr IV .Q1H1M ONE Stop: 08/08/24 01:33 Last Infusion: 08/08/24 02:00 Dose: Infused Documented By: Admin: 08/08/24 00:51 Dose: 999 mls/hr Documented By: BOB Piperacillin Sod/Tazobactam (Sod 4.5 gm/ Sodium Chloride) 100 mls @ 200 mls/hr IV X1 ONE Stop: 08/08/24 01:02 Last Infusion: 08/08/24 01:40 Dose: Infused Documented By: Admin: 08/08/24 01:06 Dose: 200 mls/hr Documented By: BOB Doxycycline Hyclate 200 mg/ (Sodium Chloride) 250 mls @ 125 mls/hr IV X1 ONE Stop: 08/08/24 02:32 Last Infusion: 08/08/24 05:20 Dose: Infused Documented By: Admin: 08/08/24 03:10 Dose: 125 mls/hr Documented By: BOB Acetaminophen (Ofirmev Inj) 1,000 mg in 100 mls @ 250 mls/hr IV Q6HR LIU Stop: 08/08/24 18:23 Last Admin: 08/08/24 08:32 Dose: Not Given Documented By: DO Non-Admin Reason: Discontinued Acetaminophen (Ofirmev Inj) 1,000 mg in 100 mls @ 250 mls/hr IV NOW ONE Stop: 08/08/24 00:58 Last Infusion: 08/08/24 01:30 Dose: Infused Documented By: Admin: 08/08/24 00:56 Dose: 250 mls/hr Documented By: BOB Sodium Chloride (Ns) 1,000 mls @ 999 mls/hr IV .Q1H1M ONE Stop: 08/08/24 03:37 Last Infusion: 08/08/24 04:30 Dose: Infused Documented By: Admin: 08/08/24 03:13 Dose: 999 mls/hr Documented By: BOB Piperacillin/Tazobactam/Dextrose (Zosyn) 50 mls @ 12.5 mls/hr IV Q12HR LIU Stop: 08/15/24 08:59 Last Admin: 08/11/24 08:29 Dose: 12.5 mls/hr Documented By: Infusion: 08/11/24 01:33 Dose: Infused Documented By: Admin: 08/10/24 21:33 Dose: 12.5 mls/hr Documented By: Infusion: 08/10/24 12:40 Dose: Infused Documented By: Admin: 08/10/24 08:40 Dose: 12.5 mls/hr Documented By: Infusion: 08/10/24 00:45 Dose: Infused Documented By: Admin: 08/09/24 20:45 Dose: 12.5 mls/hr Documented By: Infusion: 08/09/24 12:48 Dose: Infused Documented By: Admin: 08/09/24 08:48 Dose: 12.5 mls/hr Documented By: Infusion: 08/09/24 00:58 Dose: Infused Documented By: Admin: 08/08/24 20:58 Dose: 12.5 mls/hr Documented By: Admin: 08/08/24 18:50 Dose: Not Given Documented By: LANCE Non-Admin Reason: pt in dialysis Doxycycline Hyclate 100 mg/ (Sodium Chloride) 100 mls @ 100 mls/hr IV BID LIU Stop: 08/15/24 08:59 Last Admin: 08/08/24 09:09 Dose: 100 mls/hr Documented By: YAW Vancomycin/Sodium Chloride (Vancomycin/Ns 1 Gm Ivpb) 200 mls @ 120 mls/hr IV X1 ONE Stop: 08/08/24 14:09 Last Admin: 08/08/24 18:51 Dose: 120 mls/hr Documented By: LANCE Vancomycin/Sodium Chloride (Vancomycin/Ns 500 Mg Ivpb) 100 mls @ 120 mls/hr IV X1 ONE Stop: 08/09/24 10:49 Last Admin: 08/09/24 10:31 Dose: 120 mls/hr Documented By: LANCE Albumin Human (Albuminar-25 Ivpb) 25 gm in 100 mls @ 100 mls/hr IV BID LIU Stop: 08/12/24 20:59 Last Admin: 08/12/24 09:03 Dose: 100 mls/hr Documented By: Infusion: 08/11/24 22:00 Dose: Infused Documented By: Admin: 08/11/24 21:00 Dose: 100 mls/hr Documented By: Infusion: 08/11/24 09:29 Dose: Infused Documented By: Admin: 08/11/24 08:29 Dose: 100 mls/hr Documented By: Infusion: 08/10/24 22:55 Dose: Infused Documented By: Admin: 08/10/24 21:55 Dose: 100 mls/hr Documented By: Infusion: 08/10/24 09:42 Dose: Infused Documented By: Admin: 08/10/24 08:42 Dose: 100 mls/hr Documented By: Infusion: 08/09/24 21:30 Dose: Infused Documented By: Admin: 08/09/24 20:29 Dose: 100 mls/hr Documented By: Vancomycin/Sodium Chloride (Vancomycin/Ns 500 Mg Ivpb) 100 mls @ 120 mls/hr IV X1 ONE Stop: 08/11/24 10:49 Last Admin: 08/11/24 10:02 Dose: 120 mls/hr Documented By: KF Melatonin (Melatonin 3 Mg Tablet) 8 mg PO HS LIU Stop: 09/11/24 20:59 Oseltamivir Phosphate (Oseltamivir 30 Mg Capsule) 30 mg PO X1 ONE Stop: 08/08/24 04:38 Last Admin: 08/08/24 06:03 Dose: 30 mg Documented By: LB Oxycodone/Acetaminophen (Oxycodone/Apap 5/325 Tablet) 1 tab PO Q6H PRN PRN Reason: PAIN SCALE 4-10(Mod-Sev Stop: 08/13/24 03:23 Last Admin: 08/08/24 13:58 Dose: 1 tab Documented By: MM Pharmacy Consult (Vancomycin Pharmacy To Dose 1 Each Each) 1 each IV QDAY PRN PRN Reason: PROTOCOL Stop: 09/07/24 12:14 Polyethylene Glycol/Electrolytes ([place]/Nahco3/Stefan/Peg (Golytely) 4,000 Ml Btl) 4,000 ml PO X1 ONE Stop: 08/12/24 20:55 Last Admin: 08/12/24 23:11 Dose: 4,000 ml Documented By: ME Polyethylene Glycol/Electrolytes ([place]/Nahco3/Stefan/Peg (Golytely) 4,000 Ml Btl) 4,000 ml PO X1 ONE Stop: 08/13/24 15:14 Potassium Chloride (Potassium Chloride 10% 20 Meq/15 Ml Udc) 20 meq PO X1 ONE Stop: 08/12/24 07:40 Last Admin: 08/12/24 08:55 Dose: 20 meq Documented By: MR Quetiapine Fumarate (Quetiapine Fumarate 25 Mg Tablet) 25 mg PO X1 ONE Stop: 08/11/24 23:41 Last Admin: 08/11/24 23:56 Dose: 25 mg Documented By: RC see above Consultations Consultation(s) initiated? (list below): Yes Consultation #1 (Physician, Specialty, Details): Discussed case with [the resident physician, attending Dr. Monsivais] from Hospitalist service regarding admission. Discussed patients ED course, exam findings, labs, and radiology results. The Hospitalist [agrees] to accept the patient for admission. Time: 02:48 Diagnosis Differential diagnosis altered mental status: sepsis and other (septic shock, cellulitis, severe sepsis, UTI, pneumonia, intra-abdominal infection, hepatic encephalopathy, meningitis, encephalitis) Most likely diagnosis given after review of the tests above:: see below Admission Indicated Admission indicated?: indicated Admission Request Was there a request for admission?: Yes Admission Attestation Admission request attestation: Discussed case with [] from Hospitalist service regarding admission. Discussed patients ED course, exam findings, labs, and radiology results. The Hospitalist [agrees,declines] to accept the patient for admission. Disposition Plan Disposition Plan: Admit Critical Care Time Critical Care Time Critical Care Time: Yes Total Critical Care Time (min.): 76 Attestation: The high probability of sudden, clinically significant deterioration in the patient?s condition required the highest level of my preparedness to intervene urgently. The services I provided to this patient were to treat and/or prevent clinically significant deterioration. Services included the following: chart data review, reviewing nursing notes and/or old charts, documentation time, [employer] consultant collaboration regarding findings and treatment options, medication orders and management, direct patient care, vital sign assessments and ordering, interpreting and reviewing diagnostic studies and lab tests. Aggregate critical care time includes only time during which I was engaged in work directly related to the patient?s care, as described above, whether at bedside or elsewhere in the Emergency Department. It did not include time spent performing other reported procedures or the services of residents, students, nurses or physician assistants. Discharge Plan Plan Patient Disposition: Admit Acute Care w/in Hospital Disposition Comment: Tele Problem List Clinical Impression: Severe sepsis with septic shock, Sepsis, End stage chronic kidney disease, Cirrhosis
--- NOTE | 2024-08-08 00:36 | XR_ITS ---
Examination: CT brain head without contrast. 2-D sagittal coronal reconstructions Date and time of exam: 2024 0127 hours INDICATIONS: Onset altered mental status today COMPARISON: June 03, 2024 CTDI: vol (mGy):48.6 DLP: (mGycm):969 Technique: Multiple CT axial sections of the brain have been obtained, 5 mm slice thickness. Contrast has not been administered. 2-D sagittal, coronal reconstructions have been obtained Low dose protocols were performed. One or more of the following dose reduction techniques were used; automated exposure control, adjustment of the mA and/or KV according to patient size, use of iterative reconstruction technique. Findings: No significant ventricular enlargement. Intra-axial or extra-axial hemorrhage density is not seen. No mass effect or midline shift Basal cisterns are not remarkable. Fourth ventricle is midline. Cranial vault intact. Impression: Negative for acute hemorrhage, mass effect or midline shift Advise clinical correlation and follow-up coronary
[2024-08-08] MEDS: SODIUM CHLORIDE 0.9% 1000 ML 1,000 ML 999 ML IV ×2 (00:51→03:13)
[2024-08-08] MEDS: ACETAMINOPHEN IVPB 1,000 MG/100 ML VIAL 250 MG IV (00:56)
[2024-08-08 01:03] LABS: Basophils # (Auto) 0.1 Thou/mm3 (0.0-0.2); Basophils % (Auto) 1 % (0-2.5); Eosinophils % (Auto) 0 % (0-10); Hematocrit 36.8 % (36.0-46.0); Hemoglobin 12.1 g/dL (12.0-16.0); Immature Granulocytes % (Auto) 2 % (0-0); Lymphocytes # (Auto) 0.7 Thou/mm3 (1.0-4.8); Lymphocytes % (Auto) 7 % (10-50); Mean Corpuscular HGB Conc 32.9 g/dl (31.0-37.0); Mean Corpuscular Hemoglobin 32.4 pg (25.0-35.0); Mean Corpuscular Volume 99 fL (80-100); Monocytes # (Auto) 0.5 Thou/mm3 (0.0-0.8); Monocytes % (Auto) 5 % (0-12); Neutrophils # (Auto) 8.8 Thou/mm3 (1.8-7.7); Neutrophils % (Auto) 86 % (37-80); Nucleated Red Blood Cell % 0 /100 WBC (0); Platelet Count 156 Thou/mm3 (140-440); RDW Standard Deviation 53.8 fL (36.4-46.3); Red Blood Count 3.73 Miln/mm3 (4.00-5.20); White Blood Count 10.2 Thou/mm3 (3.6-11.0)
[2024-08-08] MEDS: PIPER/TAZO INJ 4.5 GM in SODIUM CHLORIDE 0.9% (P) 100 ML IV (01:06)
[2024-08-08 01:11] LABS: Beta Hydroxybutyrate 1.4 mmol/L (<0.6)
[2024-08-08 01:19] LABS: Lactate (Lactic Acid) 4.1 mMol/L (0.4-2.0)
[2024-08-08 01:21] LABS: INR 1.5 (0.9-1.3); Partial Thromboplastin Time 33.3 Seconds (22.0-36.0); Prothrombin Time 15.6 Seconds (9.0-12.2)
[2024-08-08 01:29] LABS: Ammonia < 10 uMol/L (11-32); B-Type Natriuretic Peptide > 3280 pg/mL (0-100)
[2024-08-08 01:31] LABS: Base Excess 4 (-3-3); HCO3 27 mEq/L (20-26); Inspired Oxygen, FIO2 21 %; O2 Saturation 99 % (91-98); PCO2 34 mmHg (32.0-48.0); PO2 108 mmHg (83-108); pH, Arterial 7.51 (7.35-7.45)
[2024-08-08 01:31] LABS: Collection Type, Urine Clean Catch
[2024-08-08 01:32] LABS: Allen Test Not Performed; Puncture Site Right Brachial
[2024-08-08 01:36] LABS: Bilirubin,Urine 1+ (Negative); Blood,Urine 3+ (Negative); Clarity,Urine Clear (Clear/Hazy); Color,Urine Yellow (Lt Yel-Yel); Glucose, Urine 3+ (Negative); Ketones,Urine Trace (Negative); Leukocyte Esterase,Urine Negative (Negative); Nitrite,Urine Negative (Negative); PH,Urine 7.5 (5.0-7.0); Protein,Urine 4+ (Neg - Trace); RBC,Urine 4 /hpf (0-3); Specific Gravity,Urine 1.026 (1.001-1.035); Squamous Epithelial Cell,Urine 1 /hpf (0-5); Urobilinogen,Urine Negative mg/dL (0.0-1.0); WBC,Urine 3 /hpf (0-5)
[2024-08-08 01:45] LABS: Alanine Aminotransferase 34 U/L (10-49); Albumin, Serum 3.1 gm/dL (3.5-5.0); Albumin/Globulin Ratio 0.9 (1.2-2.2); Alkaline Phosphatase 56 U/L (46-116); Anion Gap 14 (7-16); Aspartate Amino Transferase 138 U/L (0-34); BUN/Creatinine Ratio 6 Ratio (12-20); Bilirubin,Total 1.6 mg/dL (0.3-1.2); Blood Urea Nitrogen 39 mg/dL (9-23); Calcium 7.8 mg/dL (8.3-10.6); Calcium (Corrected) 8.5 mg/dL (8.5-10.1); Carbon Dioxide 28.9 mMol/L (20.0-31.0); Chloride 93 mMol/L (98-107); Creatinine (Component) 6.9 mg/dL (0.6-1.3); Estimated Creatinine Clearance 8.2 mL/min (>60); Globulin 3.3 gm/dL (2.3-3.5); Glucose 68 mg/dL (74-106); LDH (Lactate Dehydrogenase) 594 U/L (120-246); Lipase 17 U/L (12-53); Magnesium 2.1 mg/dL (1.6-2.6); Osmolality,Calculated 279 (275-295); Phosphorous 5.3 mg/dL (2.4-5.1); Potassium 4.1 mMol/L (3.4-5.1); Sodium 136 mMol/L (136-145); Total Protein 6.4 gm/dL (5.7-8.2); eGFR 7 See Note
--- NOTE | 2024-08-08 01:45 | PC.NURSE ---
To ct-scan via gurney.
--- NOTE | 2024-08-08 01:51 | XR_ITS ---
Examination: CT abdomen and pelvis without contrast. Coronal 3-D reconstructions. Sagittal 2-D reconstructions. Date and time of exam:August 08, 2024 0153 hours Comparison August 01, 2024 INDICATIONS: Epigastric pain beginning one week ago, diagnosis cirrhosis, anasarca, ascites CTDI: vol (mGy): 15.8 DLP: (mGycm): 879 Technique: Axial images of the abdomen have been obtained, 3 mm slice thickness Intravenous contrast material has not been administered. Low dose protocols were performed. One or more of the following dose reduction techniques were used; automated exposure control, adjustment of the mA and/or KV according to patient size, use of iterative reconstruction technique. Findings: Mild to moderate enlargement cardiac contour, edema in the lower lung zones Small right pleural effusion Anasarca Liver irregular in contour No splenomegaly Mild ascites Mild hepatomegaly No gallstones No hydronephrosis No pancreatic mass Normal appendix Abdominal aorta normal size No bowel obstruction Atrophic uterus Urinary bladder wall is thickened Moderate osteopenia IMPRESSION: Mild to moderate enlargement cardiac contour with pulmonary edema Cirrhosis Mild ascites Anasarca No bowel obstruction Cystitis pattern
[2024-08-08 01:55] LABS: Procalcitonin 120.46 ng/ml (0.0-0.49)
[2024-08-08 01:56] LABS: Troponin I 0.553 ng/mL (0.0-0.045)
--- NOTE | 2024-08-08 02:00 | PC.LAC ---
Doxy not available nrsg sup informed.
[2024-08-08 02:02] LABS: Amphetamine/Methamp Scrn,U Negative (Negative); Barbiturate Screen,Urine Negative (Negative); Benzodiazepines Screen,Urine Negative (Negative); Benzoylecgonine Screen, Ur Negative (Negative); Fentanyl Screen,Urine Negative (Negative); Opiate Screen,Urine Negative (Negative); THC Screen,Urine Negative (Negative)
[2024-08-08 02:34] LABS: HCG,Qualitative Serum Negative
--- NOTE | 2024-08-08 02:58 | PRELIM_ITS ---
CT scan of the head without contrast (axial sections with sagittal and coronal reformats). August 08, 2024 at 0127 hours Clinical History: Altered mental status. No prior study is available for comparison. Findings: No evidence of intracranial hemorrhage, mass effect or midline shift. There is mild volume loss. There is atheromatous calcification of the intracranial arteries. The calvarium is unremarkable. There is mild to moderate mucosal thickening in the right maxillary and ethmoid sinuses. The mastoid air cells are clear. Impression: No evidence of intracranial hemorrhage, mass effect or midline shift. Other findings as described above. Report Electronically Signed By: Joseph Young 08/08/2024 2:58:14 AM [EST]
[2024-08-08] MEDS: DOXYCYCLINE INJ 200 MG in SODIUM CHLORIDE 0.9% 250 ML 250 ML 125 MG IV (03:10)
--- NOTE | 2024-08-08 03:14 | PRELIM_ITS ---
CT scan of the abdomen and pelvis without intravenous contrast (axial sections with sagittal and coronal reformats) August 08, 2024 at 0153 hours Clinical History: Abdominal pain. Comparison: No prior study is available for comparison. Findings: There are ground-glass opacities in the lower lobes bilaterally, which may represent interstitial pulmonary edema. There is a small right pleural effusion. Bibasilar dependent atelectasis is present. There is mild cardiomegaly. There is mild hepatomegaly. There is mild bilateral renal atrophy with extensive vascular calcifications. There is thickening of the adrenals. The gallbladder, pancreas and spleen are unremarkable on this noncontrast study. No evidence of bowel obstruction. The appendix is within normal limits (images 51/129). The urinary bladder wall is mildly thickened without perivesical fat stranding, suggestive of cystitis. There is no free air. There is [id number] ascites. There are atheromatous changes of the abdominal aorta and its visceral branches. There are prominent bilateral pelvic veins, which may represent pelvic congestion. Uterine calcification is noted. Degenerative changes are identified in the spine. There is diffuse subcutaneous edema in the abdominal and pelvic wall. Please note, the evaluation is limited due to the absence of intravenous contrast. Impression: 1. Interstitial pulmonary edema, mild cardiomegaly, small right pleural effusion, [id number] ascites and generalized anasarca, indicating fluid overload state or congestive heart failure. 2. Findings suggestive of cystitis. 3. Other findings as described above. Report Electronically Signed By: Orlando Crowe 08/08/2024 3:13:53 AM [EST]
--- NOTE | 2024-08-08 03:28 | ECHO_ITS ---
Transthoracic Echo Report Ht (in): 60 Wt (lb): 155 Exam Location: Echo Lab Status: Emergency Back Tender: Aliza Bustillo Indications: Procedure Performed: BP: 125 / 56 HR: 92 Technical Quality: Technically difficult study MEASUREMENTS (Male / Female) Normal Values 2D ECHO LV Diastolic Diameter PLAX 4.5 cm 4.2 - 5.9 / 3.9 - 5.3 cm LV Systolic Diameter PLAX 3.2 cm IVS Diastolic Thickness 1.0 cm 0.6 - 1.0 / 0.6 - 0.9 cm LVPW Diastolic Thickness 1.3 cm 0.6 - 1.0 / 0.6 - 0.9 cm LV Relative Wall Thickness 0.5 LVOT Diameter 1.8 cm LA Volume Index 21.0 cm?/m? 16 - 28 cm?/m? M-MODE Aortic Root Diameter MM 2.5 cm LA Systolic Diameter MM 3.6 cm LA Ao Ratio MM 1.4 AV Cusp Separation MM 1.7 cm DOPPLER AV Peak Velocity 139.0 cm/s AV Peak Gradient 7.7 mmHg AV Mean Gradient 4.0 mmHg AV Velocity Time Integral 25.3 cm LVOT Peak Velocity 118.0 cm/s LVOT Peak Gradient 5.6 mmHg LVOT Velocity Time Integral 22.9 cm LVOT Cardiac Index 3059.4 cm?/min?m? AV Area Cont Eq vti 2.3 cm? AV Area Cont Eq pk 2.2 cm? MV Area PHT 5.2 cm? MR Peak Velocity 230.0 cm/s MR Peak Gradient 21.2 mmHg Mitral E Point Velocity 94.1 cm/s Mitral A Point Velocity 70.3 cm/s Mitral E to A Ratio 1.3 LV E' Lateral Velocity 6.0 cm/s Mitral E to LV E' Lateral Ratio 15.7 LV E' Septal Velocity 3.1 cm/s Mitral E to LV E' Septal Ratio 30.6 TR Peak Velocity 266.0 cm/s TR Peak Gradient 28.3 mmHg PV Peak Velocity 103.0 cm/s PV Peak Gradient 4.2 mmHg FINDINGS Left Ventricle Normal left ventricular size. Hypokinetic anterior septal wall motion. Normal left ventricular diastolic filling pattern for age. The ejection fraction is visually estimated at 55%. Right Ventricle The right ventricle is mildly dilated with moderately decreased systolic function. The estimated right ventricular systolic pressure, 47mmHg. RAP 15. Left Atrium The left atrium is normal by two-dimensional, color flow and Doppler imaging with no structural abnormalities, no thrombus formation present. Right Atrium The right atrium is normal by two-dimensional imaging, color flow and Doppler imaging with no structural abnormalities, no thrombus formation present. Atrial Septum The interatrial septum appears normal with no evidence of a shunt. Aorta The aorta is normal by two-dimensional, color flow and Doppler interrogation. Mitral Valve The mitral valve is normal by two-dimensional, color flow and Doppler interrogation. There is mild mitral valve regurgitation, stenosis or prolapse. Aortic Valve The aortic valve is trileaflet and normal by two-dimensional, color flow and Doppler interrogation. There is no significant aortic valve regurgitation. Tricuspid Valve The tricuspid valve is normal by two-dimensional, color flow and Doppler interrogation. There is moderate tricuspid regurgitation. Pulmonic Valve The pulmonic valve is not well visualized. There is no significant pulmonic valve regurgitation. Vessels Dilated inferior vena cava. Pericardium The pericardium is normal by two-dimensional imaging. There is no significant pericardial effusion. CONCLUSIONS Indication: fluid overload and SOB Normal LV size. Hypokinetic anterior septal wall motion. Estimated EF 55 %. RV is mildly dilated with moderately decreased systolic function. Estimated RVSP, 47mmHg. RAP 15. Mild MR. Moderate TR. Ingrid Lindsay (Electronically Signed) Final Date: 09 August 2024 00:35
[2024-08-08 03:58] LABS: Reflex Lactate? Y
--- NOTE | 2024-08-08 04:06 | ESHP_ITS ---
Documentation for date of: 08/08/24 HPI History of Present Illness Chief complaint: Altered mental status, RLE cellulitis History of present illness: Patient is a 54-year-old female with HTN, ESRD on HD MWF, T2DM who was brought to the ED by her son due to altered mental status. Additionally, son states that patient had severe generalized weakness and needed to be carried to her bedroom. Son states that patient's legs have gotten swollen and red for the last 3 days. Of note, patient was seen in ED on 08/01/2024 for shortness of breath, found to be flu positive and was discharged with Tamiflu 75mg BID. Patient denies any chest pain, nausea/vomiting, recent trauma or bug bite. Patient does walk with shoes and socks at home. Of note, patient's normal hemodialysis sessions are Saturday however, patient was unable to go on Saturday due to extreme weakness, and decided to go on . Patient is due for hemodialysis today as patient did not get Fridays session. Patient's intermission coordinator is Dr. Yap. ED course significant for: Tachypnea, febrile at 105 ?F. Labs significant for WBC 10.2 with left shift. pH 7.51. Creatinine 6.9, lactic acid 4.1, T. bili 1.6, AST 138, LDH 594, troponin 0.553, BNP >3280, Pro-Antwan 120. UA significant for 4+ protein, 3+ glucose, 3+ blood, 1+ bilirubin. CXR, head CT and CT abdomen pelvis were ordered, pending read. While in the ED, sepsis alert initiated and patient received 2 L NS bolus, 1 g Tylenol, doxycycline and Zosyn. Blood and urine cultures were sent. Past medical history: As mentioned above Meds: Lomotil as needed, Sensipar 30 mg daily, Xphozah 30 mg, Lasix 40 mg daily, Cincalet, sevelamer carbonate 3 times daily Social history: Patient denies any smoking, alcohol use or illicit drug use. Patient will be admitted for sepsis secondary to RLE cellulitis. Review of Systems Review of Systems ROS Unobtainable: unobtainable due to mental status Past Medical History Past Medical History NEUROLOGIC: Negative Neurological Disorders or Seizures CARDIAC: Positive Hypercholesterolemia, Edema and Hypertension (not taking meds after HD pt stated no need for meds anymore); Negative Cardiac Disorders or Congestive Heart Failure RESPIRATORY: Negative Chronic Obstructive Pulmonary Disease (COPD) or Asthma GASTROINTESTINAL: Negative Gastrointestinal Disorders or Hepatitis GENITOURINARY: Positive Genitourinary Disorders, Kidney Stones and Dialysis (MWF); Negative Renal Disease REPRODUCTIVE: Positive Previous Pregnancies MUSCULOSKELETAL: Positive Musculoskeletal Disorders and Arthritis ENT: Positive Cataracts (BILATERAL) ENDOCRINE: Positive Endocrine Disorders and Diabetes Mellitus Type 2; Negative Diabetes Mellitus Type 1 HEMATOLOGIC: Positive Blood Disorders and Anemia; Negative Sickle Cell Disease OTHER HISTORY: Positive Hospitalization and Chicken Pox; Negative Autoimmune Disease, Shingles, Blood Transfusions, Blood Transfusion Reaction, Anesthesia Reactions or Cancer Family History FAMILY HISTORY: Positive Family Cardiac Disorders; Negative Family Psychiatric Problems, Family Respiratory Disorders, Family Gastrointestinal Problems, Family Cancer, Family Surgery or Family Anesthesia Reaction Surgical History SURGICAL: Positive Tubal Ligation Social History SMOKING STATUS: Never smoker SECOND HAND EXPOSURE: No SUBSTANCE USE: does not use Exam Vital Signs Temp Pulse Resp BP Pulse Ox O2 Del Method O2 Flow Rate 98 F 72 16 138/67 H 98 Nasal Cannula 2 08/08/24 03:08 08/08/24 03:56 08/08/24 03:56 08/08/24 03:08 08/08/24 03:08 08/08/24 03:08 08/08/24 03:56 Narrative Exam Gen: AAOx2 (person, place), lethargic, easily falls asleep HEENT: NCAT, PERRLA, EOMI, MMM CVS: normal S1, S2. RRR. No MRG Resp: CTA B/L. No rhonchi, rales, crackles or wheezing Abd: soft, mild TTP in lower abdomen, non-distended. BS+ in all 4 quadrants MSK: Good ROM in BUE & BLE. RLE erythematous until mid thigh, edematous, warm to touch. LLE with edema but no erythema/warmth, left upper extremity AVF good thrill Neuro: CN II-XII grossly intact. Strength 5/5 in BUE & BLE. Results: Labs 08/08/24 05:10 08/08/24 05:10 Labs: Short CBC 08/08/24 Range/Units 00:49 WBC 10.2 D (3.6-11.0) Thou/mm3 Hgb 12.1 (12.0-16.0) g/dL Hct 36.8 (36.0-46.0) % Plt Count 156 D (140-440) Thou/mm3 BMP 08/08/24 00:49 Sodium 136 Potassium 4.1 Chloride 93 L Carbon Dioxide 28.9 BUN 39 H Creatinine 6.9 H* D Glucose 68 L Calcium 7.8 L Cardiac Enzymes 08/08/24 Range/Units 00:49 Troponin I 0.553 H* (0.0-0.045) ng/mL Liver Function 08/08/24 Range/Units 00:49 Total Bilirubin 1.6 H (0.3-1.2) mg/dL AST 138 H (0-34) U/L ALT 34 (10-49) U/L Alkaline Phosphatase 56 (46-116) U/L Albumin 3.1 L (3.5-5.0) gm/dL Urine 08/08/24 Range/Units 01:26 Urine Color Yellow (Lt Yel-Yel) Urine Clarity Clear (Clear/Hazy) Urine pH 7.5 H (5.0-7.0) Ur Specific [place] 1.026 (1.001-1.035) Urine Protein 4+ A (Neg - Trace) Urine Glucose (UA) 3+ A (Negative) ABG Interpretation ABG results: 08/08/24 01:28 ABG pH 7.51 H ABG pCO2 34 ABG pO2 108 ABG HCO3 27 H ABG O2 Saturation 99 H ABG Base Excess 4 H Quality Measures Quality Measures sepsis Current suspected stage: sepsis Possible source: skin/soft tissue Blood cultures ordered: yes Antibiotic ordered: Yes Medications Home Medications and Allergies Allergies Allergy/AdvReac Type Severity Reaction Status Date / Time No Known Allergies Allergy Verified 04/25/23 13:53 Visit Medications Acetaminophen (Acetaminophen 325 Mg Tablet) 650 mg PO Q6H PRN PRN Reason: Fever >100.3 or Pain 1-3 Stop: 09/07/24 03:23 Heparin Sodium (Porcine) (Heparin Sod Inj 5000 Unit/Ml Vial) 5,000 unit SC Q12HR LIU Stop: 08/22/24 08:59 Piperacillin/Tazobactam/Dextrose (Zosyn) 2.25 gm in 50 mls @ 100 mls/hr IV Q12HR LIU Stop: 08/15/24 08:59 Doxycycline Hyclate 100 mg/ (Sodium Chloride) 100 mls @ 100 mls/hr IV BID LIU Stop: 08/15/24 08:59 Metoclopramide HCl (Metoclopramide 5 Mg Tablet) 10 mg PO Q6H PRN PRN Reason: NAUSEA OR VOMITING Stop: 09/07/24 03:23 Oxycodone/Acetaminophen (Oxycodone/Apap 5/325 Tablet) 1 tab PO Q6H PRN PRN Reason: PAIN SCALE 4-10(Mod-Sev Stop: 08/13/24 03:23 Discontinued Medications Sodium Chloride (Ns) 1,000 mls @ 999 mls/hr IV .Q1H1M ONE Stop: 08/08/24 01:33 Last Admin: 08/08/24 00:51 Dose: 999 mls/hr Piperacillin Sod/Tazobactam (Sod 4.5 gm/ Sodium Chloride) 100 mls @ 200 mls/hr IV X1 ONE Stop: 08/08/24 01:02 Last Infusion: 08/08/24 01:40 Dose: Infused Doxycycline Hyclate 200 mg/ (Sodium Chloride) 250 mls @ 125 mls/hr IV X1 ONE Stop: 08/08/24 02:32 Last Admin: 08/08/24 03:10 Dose: 125 mls/hr Acetaminophen (Ofirmev Inj) 1,000 mg in 100 mls @ 250 mls/hr IV Q6HR LIU Stop: 08/08/24 18:23 Acetaminophen (Ofirmev Inj) 1,000 mg in 100 mls @ 250 mls/hr IV NOW ONE Stop: 08/08/24 00:58 Last Infusion: 08/08/24 01:30 Dose: Infused Sodium Chloride (Ns) 1,000 mls @ 999 mls/hr IV .Q1H1M ONE Stop: 08/08/24 03:37 Last Admin: 08/08/24 03:13 Dose: 999 mls/hr Assessment & Plan Plan Patient is a 54-year-old female with HTN, ESRD on HD MWF, T2DM who was brought to the ED by her son due to altered mental status. Additionally, son states that patient had severe generalized weakness and needed to be carried to her bedroom. Son states that patient's legs have gotten swollen and red. Patient will be admitted for sepsis secondary to RLE cellulitis. #Sepsis, secondary to #RLE cellulitis Patient meets SIRS criteria + source; LA 4.1, Pro-Antwan 120 although may be falsely elevated in setting of ESRD -Blood and urine culture sent -MRSA nares ordered -Started on IV doxycycline and Zosyn renally dosed -As needed acetaminophen -Trend LA #Acute encephalopathy Likely secondary to sepsis from cellulitis and/or Tamiflu administration. Patient given Tamiflu 75mg BID on 08/02/24, which was not renally dosed. Head CT negative for hemorrhage. Per son, patient is not back to her baseline, as she generally is very talkative and is A&O x 3. #Influenza B+ Tested postive on 08/02/24. Unsure if patient took dose BID since 08/02/24. -Gave a x1 order of Tamiflu 30mg -Patient finished 5 day course of Tamiflu, however since Tamiflu is renally dose, patient will need HD today #Abdominal pain #IBS TTP on exam Patient takes medications for IBS Follow-up CT A/P, showed cirrhosis/anasarca/ascites Consider diuresing as patient appears to be fluid overloaded on CXR and CT, however clinically patient is not tachypneic or SOB. #ESRD on HD, MWF #Fluid overload state BNP >3280 with edema noted -Nephrology consulted to continue hemodialysis; appreciate recs, will most likely need HD session today -Will resume home meds -Echo ordered to evaluate for possible CHF component, last Echo EF showed 40-45% #NSTEMI, likely type II Denies any chest pain at this time; likely secondary to sepsis Troponin 0.553, continue to trend until delta noted #Mild transaminitis #Mild hyperbilirubinemia T. bili 1.6, AST 138, ALT and ALP within normal limits Reviewed previous CT abdomen pelvis which was concerning for cirrhosis/anasarca/ascites -Can consider obtaining liver ultrasound #HTN Patient takes Lasix at home BP stable at this time, will hold off on antihypertensives for now -Consider Lasix as patient did receive 2L of fluids in the setting of previous hx of HFrEF documented in last Echo in November 2022 #History of T2DM Last A1c 6.9% in November 2022 Glucose 69 on CHEM panel, continue to monitor -Hypoglycemic protocol in place -Can consider obtaining A1c Health maintenance Dispo: Admitted for sepsis secondary to cellulitis, on IV antibiotics DVT prophylaxis: Heparin GI PPx: None Diet: Renal CODE STATUS: Full code Patient's plan and care discussed with my attending, Dr. Ivette Dodson MD PGY-2 Attending Provider Attestation/Addendum I attest that I was physically present for the evaluation, physical examination, lab and imaging review of the patient with the residents. I discussed the case with the residents and agree with the findings and plans of care as documented above. Patient is a 54 years old female with past medical history of hypertension, ESRD on hemodialysis, diabetes mellitus who presented to the ED with complaint of altered mental status. As per patient's son, patient had severe generalized weakness and was unable to carry out her ADLs at home. She was also having progressive swelling of her leg for the last 3 days. Patient was recently seen in the ED for shortness of breath, was found to have flu positive and was started on Tamiflu. At bedside, she was noted to have swelling and erythema up to mid thigh, warm to touch on the right side. In the ED, she was tachypneic, had a temperature of 105 ?F, WBC count was 10.2. Creatinine 6.9, lactic acid 4.1, T. bili 1.6, AST 138 LDH 594, troponin 0.553, BNP more than 30-80, procalcitonin 1.2.46. Sepsis alert was called in the ED, patient received 2 L normal saline bolus, Tylenol, IV Zosyn and doxycycline. We will admit the patient for sepsis secondary to right lower extremity cellulitis, we will continue with IV doxycycline and Zosyn. Blood and urine cultures were obtained. Head CT was done in the ED which was negative for acute hemorrhage, mass effect or midline shift. We will continue monitoring with frequent neurochecks. We will continue with Tamiflu for Influenza. Patient had abdominal tenderness on palpation, we bobby follow up with CT abdomen/pelvis. Troponin elevation likely from demand ischemia, we will continue to trend troponin. Also started on sliding scale for diabetes. Charles Steele MD
[2024-08-08 05:37] LABS: Lactic Acid, 3 HR 2.7 mMol/L (0.4-2.0)
[2024-08-08 05:44] LABS: Basophils % (Auto) 0 % (0-2.5); Eosinophils % (Auto) 0 % (0-10); Hematocrit 33.2 % (36.0-46.0); Hemoglobin 10.9 g/dL (12.0-16.0); Immature Granulocytes % (Auto) 2 % (0-0); Immature Granulocytes Auto 0.18 Thou/mm3 (0.00-0.00); Lymphocytes # (Auto) 0.4 Thou/mm3 (1.0-4.8); Lymphocytes % (Auto) 4 % (10-50); Mean Corpuscular HGB Conc 32.8 g/dl (31.0-37.0); Mean Corpuscular Hemoglobin 31.8 pg (25.0-35.0); Mean Corpuscular Volume 97 fL (80-100); Monocytes # (Auto) 0.3 Thou/mm3 (0.0-0.8); Monocytes % (Auto) 3 % (0-12); Neutrophils # (Auto) 9.9 Thou/mm3 (1.8-7.7); Neutrophils % (Auto) 91 % (37-80); Nucleated Red Blood Cell % 0 /100 WBC (0); Platelet Count 140 Thou/mm3 (140-440); RDW Standard Deviation 52.9 fL (36.4-46.3); Red Blood Count 3.43 Miln/mm3 (4.00-5.20); White Blood Count 10.9 Thou/mm3 (3.6-11.0)
[2024-08-08] MEDS: OSELTAMIVIR 30 MG CAPSULE PO (06:03)
[2024-08-08 06:06] LABS: Alanine Aminotransferase 34 U/L (10-49); Albumin, Serum 2.6 gm/dL (3.5-5.0); Albumin/Globulin Ratio 0.9 (1.2-2.2); Alkaline Phosphatase 45 U/L (46-116); Anion Gap 15 (7-16); Aspartate Amino Transferase 145 U/L (0-34); BUN/Creatinine Ratio 6 Ratio (12-20); Bilirubin,Total 1.7 mg/dL (0.3-1.2); Blood Urea Nitrogen 40 mg/dL (9-23); Calcium (Corrected) 8.1 mg/dL (8.5-10.1); Carbon Dioxide 26.6 mMol/L (20.0-31.0); Chloride 96 mMol/L (98-107); Creatinine (Component) 6.7 mg/dL (0.6-1.3); Estimated Creatinine Clearance 8.5 mL/min (>60); Globulin 2.9 gm/dL (2.3-3.5); Glucose 73 mg/dL (74-106); Osmolality,Calculated 284 (275-295); Potassium 3.6 mMol/L (3.4-5.1); Sodium 138 mMol/L (136-145); Total Protein 5.5 gm/dL (5.7-8.2); eGFR 7 See Note
[2024-08-08 06:22] LABS: Troponin I 0.539 ng/mL (0.0-0.045)
[2024-08-08] MEDS: DOXYCYCLINE INJ 100 MG in SODIUM CHLORIDE 0.9% (P) 100 ML IV (09:09)
[2024-08-08] MEDS: HEPARIN SOD INJ 5000 UNIT/ML VIAL SC ×2 (09:12→20:57)
--- NOTE | 2024-08-08 11:14 | PD.NEPHCONS ---
History of Present Illness Data of Consult Consult date: 08/08/24 Requesting Physician: Charles Steele MD Primary Care Provider: Physician No Primary/Family Consult Narrative Reason for consult: ESRD History of present illness: Ms. Aguilar is a 54-year-old lady with extensive past medical history of uncontrolled hypertension and diabetes for many years ended up on dialysis 2 years ago under my care and has been coming to dialysis treatments on TTS (noncompliant with treatments due to loose stools) was admitted to the emergency department brought by the son with generalized weakness and significant right leg edema which is going on for the last 3 days. Patient apparently came to the ED last week and diagnosed with flu and was given Tamiflu. I saw her at the dialysis unit on and emphasize compliance. Her son is also on dialysis and was recently switched from MWF to TTS sessions. Hope she will be compliant. In the emergency department as she was having fever of 105, WBC 10.2, pH 7.51, lactic acid 4.1, LFTs were elevated, LDH 594, creatinine 6.9, BNP greater than 3280, Pro-Antwan 120, troponin 0.5. Urinalysis shows blood and protein with glucose. Chest x-ray showed fluid overload, head CT negative. Abdominal CT showed liver cirrhosis, pulmonary edema Patient denies any chest pain, nausea/vomiting, recent trauma or bug bite. Patient does walk with shoes and socks at home. Meds: Lomotil as needed, Sensipar 30 mg daily, Xphozah 30 mg, Lasix 40 mg daily, Cincalet, sevelamer carbonate 3 times daily Social history: Patient denies any smoking, alcohol use or illicit drug use. Patient will be admitted for sepsis secondary to RLE cellulitis. Renal consultation requested for need for dialysis. Patient currently seen on dialysis. cc:: cc: Charles Steele MD Review of Systems Review of Systems Narrative Review of Systems: CONSTITUTIONAL: Patient c/o weakness, fever, chills. HEENT: Denies any visual disturbances or hearing problems. CARDIOVASCULAR: Patient denies any chest pain. c/o shortness of breath, swelling in the lower extremities. PULMONARY: Patient c/o shortness of breath, cough. GASTROINTESTINAL: Patient denies any abdominal pain, constipation, nausea, vomiting, diarrhea. GENITOURINARY: Patient denies any urinary symptoms of burning or frequency or hematuria, denies any form in the urine. SKIN: +++Erythema in the lower extremity right side MUSCULOSKELETAL: Patient complaining of gait imbalance from leg weakness NEUROLOGICAL: Denies any neurological problems of strokes, seizures or confusion. Denies any memory problems. PSYCHIATRIC: Denies any depression or anxiety. LYMPHATICS : No lymphadenopathy Past Medical History Past Medical History NEUROLOGIC: Negative Neurological Disorders or Seizures CARDIAC: Positive Hypercholesterolemia, Edema and Hypertension (not taking meds after HD pt stated no need for meds anymore); Negative Cardiac Disorders or Congestive Heart Failure RESPIRATORY: Negative Chronic Obstructive Pulmonary Disease (COPD) or Asthma GASTROINTESTINAL: Negative Gastrointestinal Disorders or Hepatitis GENITOURINARY: Positive Genitourinary Disorders, Kidney Stones and Dialysis (MWF); Negative Renal Disease REPRODUCTIVE: Positive Previous Pregnancies MUSCULOSKELETAL: Positive Musculoskeletal Disorders and Arthritis ENT: Positive Cataracts (BILATERAL) ENDOCRINE: Positive Endocrine Disorders and Diabetes Mellitus Type 2; Negative Diabetes Mellitus Type 1 HEMATOLOGIC: Positive Blood Disorders and Anemia; Negative Sickle Cell Disease OTHER HISTORY: Positive Hospitalization and Chicken Pox; Negative Autoimmune Disease, Shingles, Blood Transfusions, Blood Transfusion Reaction, Anesthesia Reactions or Cancer Family History FAMILY HISTORY: Positive Family Cardiac Disorders; Negative Family Psychiatric Problems, Family Respiratory Disorders, Family Gastrointestinal Problems, Family Cancer, Family Surgery or Family Anesthesia Reaction Surgical History SURGICAL: Positive Tubal Ligation Social History SMOKING STATUS: Never smoker SECOND HAND EXPOSURE: No SUBSTANCE USE: does not use Meds Home Medications and Allergies Allergies Allergy/AdvReac Type Severity Reaction Status Date / Time No Known Allergies Allergy Verified 04/25/23 13:53 Exam Vital Signs Temp Pulse Resp BP Pulse Ox O2 Del Method O2 Flow Rate 35.4 C L 70 21 H 135/71 H 97 Room Air 3 08/08/24 09:42 08/08/24 10:10 08/08/24 10:10 08/08/24 09:42 08/08/24 10:10 08/08/24 09:42 08/08/24 10:10 Narrative Exam GENERAL APPEARANCE: Patient currently seen in dialysis. Looks slightly older than her stated age. Sick looking NECK: Neck supple, no JVD or bruit CARDIOVASCULAR: Heart regular, no murmurs LUNGS/CHEST: Few crackles at the bases ABDOMEN: Soft, nontender, nondistended. No masses. Normal bowel sounds. EXTREMITIES: Significant edema in the lower extremities. Right lower extremity is a erythematous and warm to touch SKIN: Cellulitic rash of the right lower extremity MUSCULOSKELETAL: In bed NEUROLOGICAL : No neurological deficits Results Labs 08/08/24 05:10 08/08/24 05:10 Labs: Short CBC 08/08/24 08/08/24 Range/Units 00:49 05:10 WBC 10.2 D 10.9 (3.6-11.0) Thou/mm3 Hgb 12.1 10.9 L (12.0-16.0) g/dL Hct 36.8 33.2 L (36.0-46.0) % Plt Count 156 D 140 (140-440) Thou/mm3 BMP 08/08/24 08/08/24 00:49 05:10 Sodium 136 138 Potassium 4.1 3.6 D Chloride 93 L 96 L Carbon Dioxide 28.9 26.6 BUN 39 H 40 H Creatinine 6.9 H* D 6.7 H* Glucose 68 L 73 L Calcium 7.8 L 7.0 L Cardiac Enzymes 08/08/24 08/08/24 Range/Units 00:49 05:10 Troponin I 0.553 H* 0.539 H* (0.0-0.045) ng/mL Liver Function 08/08/24 08/08/24 Range/Units 00:49 05:10 Total Bilirubin 1.6 H 1.7 H (0.3-1.2) mg/dL AST 138 H 145 H (0-34) U/L ALT 34 34 (10-49) U/L Alkaline Phosphatase 56 45 L (46-116) U/L Albumin 3.1 L 2.6 L D (3.5-5.0) gm/dL Urine 08/08/24 Range/Units 01:26 Urine Color Yellow (Lt Yel-Yel) Urine Clarity Clear (Clear/Hazy) Urine pH 7.5 H (5.0-7.0) Ur Specific [place] 1.026 (1.001-1.035) Urine Protein 4+ A (Neg - Trace) Urine Glucose (UA) 3+ A (Negative) ABG Interpretation ABG results: 08/08/24 01:28 ABG pH 7.51 H ABG pCO2 34 ABG pO2 108 ABG HCO3 27 H ABG O2 Saturation 99 H ABG Base Excess 4 H Assessment & Plan Assessment and plan (1) Anemia: Status: Acute Additional Assessment & Plan Additional Plan: 1) 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 ? ? Assessment and plan: Patient currently seen on dialysis. Tolerating dialysis without any problems. Hemodialysis for 3 hours, 2K, ultrafiltration 2-3 L, Epogen 6000, no heparin ordered. Plan of care discussed with the dialysis nurse. Please see dialysis flowsheet for further details. (2) Anemia: ?Status:?Chronic ? ? ? Assessment and plan: Monitor closely (3) sepsis secondary to right leg cellulitis ?Status:?Acute ? ? ? Assessment and plan: Patient was started on antibiotics. Recommend to add vancomycin (4) Hypertenson ?Status:?Chronic ? ? ? Assessment and plan: Optimize blood pressure medications.? (5) diabetes mellitus: ?Status:? chronic ? ? ? Assessment and plan: Accu-Cheks, sliding scale, consistent carb low Thank you Dr. Jones for allowing me to participate in the care of Ms. Aguilar.
[2024-08-08] MEDS: oxyCODONE/APAP 5/325 TABLET 1 TAB PO (13:58)
--- NOTE | 2024-08-08 14:01 | PC.NURSE ---
Pt co back pain 11/14. Given Hydrocodone 5/325 mg PO.
--- NOTE | 2024-08-08 14:28 | ESPR_ITS ---
Documentation for date of: 08/08/24 Subjective Subjective Interval history: Patient evaluated bedside, seen in ICU telemetry bed, postdialysis, 3.5 L removed, patient is alert and oriented, noted erythema bilateral lower extremities, reported she noticed erythema on bilateral lower limbs 2 weeks ago, it has been progressively worsening. Also missed last hemodialysis session received IV fluid boluses in the ER per sepsis protocol, spoke to Dr. Yap recommended getting another hemodialysis emergently. Exam Vital Signs Temp Pulse Resp BP Pulse Ox O2 Del Method O2 Flow Rate 97.3 F 83 18 123/68 95 Room Air 3 08/08/24 12:42 08/08/24 14:19 08/08/24 12:42 08/08/24 14:19 08/08/24 12:42 08/08/24 09:42 08/08/24 10:10 Narrative Exam GENERAL APPEARANCE: Patient in icu. Looks slightly older than her stated age. Sick looking NECK: Neck supple, no JVD or bruit CARDIOVASCULAR: Heart regular, no murmurs LUNGS/CHEST: Few crackles at the bases ABDOMEN: Soft, nontender, nondistended. No masses. Normal bowel sounds. EXTREMITIES: Significant edema in the bilateral lower extremities. Right lower extremity is more erythematous and warm to touch SKIN: bilateral lower extremity Cellulitic rash of the right lower extremities MUSCULOSKELETAL: In bed NEUROLOGICAL : No neurological deficits Objective Labs 08/09/24 04:36 08/09/24 04:36 Labs: Laboratory Results - last 24 hr 08/08/24 08/08/24 08/08/24 00:49 01:23 01:26 WBC 10.2 D RBC 3.73 L Hgb 12.1 Hct 36.8 MCV 99 MCH 32.4 MCHC 32.9 RDW Std Deviation 53.8 H Plt Count 156 D Neut % (Auto) 86 H Lymph % (Auto) 7 L [place] % (Auto) 5 Eos % (Auto) 0 Baso % (Auto) 1 Neut # (Auto) 8.8 H Lymph # (Auto) 0.7 L [place] # (Auto) 0.5 Eos # (Auto) 0.0 Baso # (Auto) 0.1 Immature Gran # (Auto) 0.20 H Absolute Nucleated RBC 0.00 Immature Gran % 2 H Nucleated RBC % 0 PT 15.6 H INR 1.5 H APTT 33.3 Puncture Site ABG pH ABG pCO2 ABG pO2 ABG HCO3 ABG O2 Saturation ABG Base Excess FiO2 Sodium 136 Potassium 4.1 Chloride 93 L Carbon Dioxide 28.9 Anion Gap 14 BUN 39 H Creatinine 6.9 H* D Estim Creat Clear Calc 8.2 L eGFR 7 L* BUN/Creatinine Ratio 6 L Glucose 68 L Calculated Osmolality 279 Lactic Acid 4.1 H* Calcium 7.8 L Corrected Calcium 8.5 Phosphorus 5.3 H Magnesium 2.1 Total Bilirubin 1.6 H AST 138 H ALT 34 Alkaline Phosphatase 56 Ammonia < 10 L Lactate Dehydrogenase 594 H Troponin I 0.553 H* B-Natriuretic Peptide > 3280 H* Total Protein 6.4 Albumin 3.1 L Globulin 3.3 Albumin/Globulin Ratio 0.9 L Lipase 17 Beta-Hydroxybutyrate/Acetoacetate 1.4 H Procalcitonin 120.46 H HCG, Qual Negative Ur Collection Type Clean Catch Urine Color Yellow Urine Clarity Clear Urine pH 7.5 H Ur Specific [place] 1.026 Urine Protein 4+ A Urine Glucose (UA) 3+ A Urine Ketones Trace Urine Blood 3+ A Urine Nitrite Negative Urine Bilirubin 1+ A Urine Urobilinogen (Auto) Negative Ur Leukocyte Esterase Negative Urine RBC 4 H Urine WBC 3 Ur Squamous Epith Cells 1 Urine Bacteria None Urine Opiates Screen Negative Urine Fentanyl Screen Negative Ur Barbiturates Screen Negative U Amphetamin/Meth Scrn Negative U Benzodiazepines Scrn Negative U Cocaine Metab Screen Negative U Marijuana (THC) Screen Negative 08/08/24 08/08/24 01:28 05:10 WBC 10.9 RBC 3.43 L Hgb 10.9 L Hct 33.2 L MCV 97 MCH 31.8 MCHC 32.8 RDW Std Deviation 52.9 H Plt Count 140 Neut % (Auto) 91 H Lymph % (Auto) 4 L [place] % (Auto) 3 Eos % (Auto) 0 Baso % (Auto) 0 Neut # (Auto) 9.9 H Lymph # (Auto) 0.4 L [place] # (Auto) 0.3 Eos # (Auto) 0.0 Baso # (Auto) 0.0 Immature Gran # (Auto) 0.18 H Absolute Nucleated RBC 0.00 Immature Gran % 2 H Nucleated RBC % 0 PT INR APTT Puncture Site Right Brachial ABG pH 7.51 H ABG pCO2 34 ABG pO2 108 ABG HCO3 27 H ABG O2 Saturation 99 H ABG Base Excess 4 H FiO2 21 Sodium 138 Potassium 3.6 D Chloride 96 L Carbon Dioxide 26.6 Anion Gap 15 BUN 40 H Creatinine 6.7 H* Estim Creat Clear Calc 8.5 L eGFR 7 L* BUN/Creatinine Ratio 6 L Glucose 73 L Calculated Osmolality 284 Lactic Acid 2.7 H Calcium 7.0 L Corrected Calcium 8.1 L Phosphorus Magnesium 2.0 Total Bilirubin 1.7 H AST 145 H ALT 34 Alkaline Phosphatase 45 L Ammonia Lactate Dehydrogenase Troponin I 0.539 H* B-Natriuretic Peptide Total Protein 5.5 L Albumin 2.6 L D Globulin 2.9 Albumin/Globulin Ratio 0.9 L Lipase Beta-Hydroxybutyrate/Acetoacetate Procalcitonin HCG, Qual Ur Collection Type Urine Color Urine Clarity Urine pH Ur Specific [place] Urine Protein Urine Glucose (UA) Urine Ketones Urine Blood Urine Nitrite Urine Bilirubin Urine Urobilinogen (Auto) Ur Leukocyte Esterase Urine RBC Urine WBC Ur Squamous Epith Cells Urine Bacteria Urine Opiates Screen Urine Fentanyl Screen Ur Barbiturates Screen U Amphetamin/Meth Scrn U Benzodiazepines Scrn U Cocaine Metab Screen U Marijuana (THC) Screen ABG Interpretation ABG results: 08/08/24 01:28 ABG pH 7.51 H ABG pCO2 34 ABG pO2 108 ABG HCO3 27 H ABG O2 Saturation 99 H ABG Base Excess 4 H Quality Measures Quality Measures sepsis Current suspected stage: sepsis Possible source: skin/soft tissue Blood cultures ordered: yes Antibiotic ordered: Yes Assessment & Plan Assessment Current Active Medications: Generic Name Dose Route Start Last Admin Trade Name Freq PRN Reason Stop Dose Admin Acetaminophen 650 mg 08/08/24 03:24 Acetaminophen 325 Mg Tablet PO 09/07/24 03:23 Q6H PRN Fever >100.3 or Pain 1-3 Dextrose 25 ml 08/08/24 04:55 Dextrose 50%-Water Inj 50 Ml Syringe IV 09/07/24 04:54 Q15MIN PRN BG 50-70 responsive npo pt Dextrose 50 ml 08/08/24 04:55 Dextrose 50%-Water Inj 50 Ml Syringe IV 09/07/24 04:54 Q15MIN PRN BG <50 OR BG <70 & pt unresponsive Heparin Sodium (Porcine) 5,000 unit 08/08/24 09:00 08/08/24 09:12 Heparin Sod Inj 5000 Unit/Ml Vial SC 08/22/24 08:59 5,000 unit Q12HR LIU Administration Piperacillin/Tazobactam/Dextrose 50 mls @ 12.5 mls/hr 08/08/24 09:00 Zosyn IV 08/15/24 08:59 Q12HR LIU Metoclopramide HCl 10 mg 08/08/24 03:24 Metoclopramide 5 Mg Tablet PO 09/07/24 03:23 Q6H PRN NAUSEA OR VOMITING Oxycodone/Acetaminophen 1 tab 08/08/24 03:24 08/08/24 13:58 Oxycodone/Apap 5/325 Tablet PO 08/13/24 03:23 1 tab Q6H PRN Administration PAIN SCALE 4-10(Mod-Sev Pharmacy Consult 1 each 08/08/24 12:15 Vancomycin Pharmacy To Dose 1 Each Each IV 09/07/24 12:14 QDAY PRN PROTOCOL Plan Patient is a 54-year-old female with HTN, ESRD on HD MWF, T2DM who was brought to the ED by her son due to altered mental status. Additionally, son states that patient had severe generalized weakness and needed to be carried to her bedroom. Son states that patient's legs have gotten swollen and red. Patient will be admitted for sepsis secondary to RLE cellulitis. #Sepsis, secondary to #bilateral lower extremity cellulitis Patient meets SIRS criteria + source; LA 4.1, Pro-Antwan 120 although may be falsely elevated in setting of ESRD -Blood and urine culture sent -MRSA nares ordered -Started on IV Vancomycin and Zosyn renally dosed started 08/08/2024 -As needed acetaminophen -Trend [place] #Acute encephalopathy- improving Likely secondary to sepsis from cellulitis and/or Tamiflu administration. Patient given Tamiflu 75mg BID on 08/02/24, which was not renally dosed. Head CT negative for hemorrhage. Per son, patient is not back to her baseline, as she generally is very talkative and is A&O x 3. #Influenza B+ Tested postive on 08/02/24. Unsure if patient took dose BID since 08/02/24. -Gave a x1 order of Tamiflu 30mg -Patient finished 5 day course of Tamiflu, however since Tamiflu is renally dose, patient will need HD today #Abdominal pain #IBS TTP on exam Patient takes medications for IBS Follow-up CT A/P, showed cirrhosis/anasarca/ascites Consider diuresing as patient appears to be fluid overloaded on CXR and CT, however clinically patient is not tachypneic or SOB. #ESRD on HD, MWF #Fluid overload state BNP >3280 with edema noted -Nephrology consulted to continue hemodialysis; appreciate recs, will most likely need HD session today -Will resume home meds -Echo ordered to evaluate for possible CHF component, last Echo EF showed 40-45% #NSTEMI, likely type II Denies any chest pain at this time; likely secondary to sepsis Troponin 0.553, continue to trend until delta noted #Mild transaminitis #Mild hyperbilirubinemia T. bili 1.6, AST 138, ALT and ALP within normal limits Reviewed previous CT abdomen pelvis which was concerning for cirrhosis/anasarca/ascites -Can consider obtaining liver ultrasound #HTN Patient takes Lasix at home BP stable at this time, will hold off on antihypertensives for now -Consider Lasix as patient did receive 2L of fluids in the setting of previous hx of HFrEF documented in last Echo in November 2022 #History of T2DM Last A1c 6.9% in November 2022 Glucose 69 on CHEM panel, continue to monitor -Hypoglycemic protocol in place -Can consider obtaining A1c Health maintenance Dispo: Admitted for sepsis secondary to cellulitis, on IV antibiotics DVT prophylaxis: Heparin GI PPx: None Diet: Renal CODE STATUS: Full code Assessment and plan discussed with my attending physician Dr. Bela Alberts (PGY-2)- Internal medicine resident Attending Provider Attestation/Addendum Patient with lower extremity edema, probable cellulitis. She is fluid overloaded, HD today. Check cultures, continue antibiotic treatment.
[2024-08-08 14:50] LABS: Troponin I 0.465 ng/mL (0.0-0.045)
--- NOTE | 2024-08-08 14:51 | PC.NURSE ---
Pt wanted off early agreed to stay on for 3 hours 15 minutes.
[2024-08-08] MEDS: HYDROcodone/APAP 5/325 TABLET 1 TAB PO (15:00)
--- NOTE | 2024-08-08 15:03 | PC.NURSE ---
First pain medications did not help pt. with pain relief. Dr. Yap call and another Hydrocodone 5/325 mg given PO.
--- NOTE | 2024-08-08 15:30 | PC.NURSE ---
Increased venous pressure, rinsed pt. back thinking she was clotting, but lines clear so restarted HD added 200 to goal for NS flush and increased time 2 minutes to bring down UF rate.
[2024-08-08] MEDS: EPOETIN ALFA-EPBX INJ 10,000 UNIT/ML VIAL (ESRD) 10000 UNIT SC (15:34)
[2024-08-08] MEDS: VANCOMYCIN/NS 1 GM IVPB 200 ML IV (18:51)
[2024-08-08] MEDS: PIPER/TAZO 3.375 GM 50 ML IV (20:58)
[2024-08-08 22:37] LABS: Troponin I 0.402 ng/mL (0.0-0.045)
[2024-08-09] VITALS (15 sets, daily range): BP systolic 82–108; BP diastolic 45–64; PULSE 75–92; RESP 15–116; TEMP 36.2–37.6; O2SAT 94–99
[2024-08-09 05:57] LABS: Basophils % (Auto) 0 % (0-2.5); Eosinophils % (Auto) 0 % (0-10); Hematocrit 37.3 % (36.0-46.0); Hemoglobin 12.1 g/dL (12.0-16.0); Immature Granulocytes % (Auto) 1 % (0-0); Immature Granulocytes Auto 0.15 Thou/mm3 (0.00-0.00); Lymphocytes # (Auto) 0.6 Thou/mm3 (1.0-4.8); Lymphocytes % (Auto) 4 % (10-50); Mean Corpuscular HGB Conc 32.4 g/dl (31.0-37.0); Mean Corpuscular Hemoglobin 32.2 pg (25.0-35.0); Mean Corpuscular Volume 99 fL (80-100); Monocytes # (Auto) 0.5 Thou/mm3 (0.0-0.8); Monocytes % (Auto) 4 % (0-12); Neutrophils # (Auto) 12.4 Thou/mm3 (1.8-7.7); Neutrophils % (Auto) 91 % (37-80); Nucleated Red Blood Cell % 0 /100 WBC (0); Platelet Count 128 Thou/mm3 (140-440); RDW Standard Deviation 54.4 fL (36.4-46.3); Red Blood Count 3.76 Miln/mm3 (4.00-5.20); White Blood Count 13.7 Thou/mm3 (3.6-11.0)
[2024-08-09 06:25] LABS: Alanine Aminotransferase 38 U/L (10-49); Albumin, Serum 2.4 gm/dL (3.5-5.0); Albumin/Globulin Ratio 0.8 (1.2-2.2); Alkaline Phosphatase 54 U/L (46-116); Anion Gap 11 (7-16); Aspartate Amino Transferase 111 U/L (0-34); BUN/Creatinine Ratio 6 Ratio (12-20); Bilirubin,Total 1.5 mg/dL (0.3-1.2); Blood Urea Nitrogen 30 mg/dL (9-23); Calcium 7.5 mg/dL (8.3-10.6); Calcium (Corrected) 8.8 mg/dL (8.5-10.1); Carbon Dioxide 31.2 mMol/L (20.0-31.0); Chloride 96 mMol/L (98-107); Creatinine (Component) 4.9 mg/dL (0.6-1.3); Estimated Creatinine Clearance 12.2 mL/min (>60); Globulin 2.9 gm/dL (2.3-3.5); Glucose 75 mg/dL (74-106); Osmolality,Calculated 280 (275-295); Potassium 3.6 mMol/L (3.4-5.1); Sodium 138 mMol/L (136-145); Total Protein 5.3 gm/dL (5.7-8.2); eGFR 10 See Note
[2024-08-09 06:49] LABS: Vancomycin,Random 16.1 mcg/mL
[2024-08-09] MEDS: PIPER/TAZO 3.375 GM 50 ML IV ×2 (08:48→20:45)
[2024-08-09] MEDS: HEPARIN SOD INJ 5000 UNIT/ML VIAL SC ×2 (08:48→20:42)
--- NOTE | 2024-08-09 09:32 | PC.NURSE ---
at 0917 pt had 10 count of Vtach, asymptomatic Dr. Dickson made aware, no orders at this time
[2024-08-09] MEDS: VANCOMYCIN/NS 500 MG IVPB 100 ML 120 MG IV (10:31)
--- NOTE | 2024-08-09 13:55 | ESPR_ITS ---
Documentation for date of: 08/09/24 Subjective Subjective Interval history: Ms. Aguilar is a 54-year-old lady with extensive past medical history of uncontrolled hypertension and diabetes for many years ended up on dialysis 2 years ago under my care and has been coming to dialysis treatments on TTS (noncompliant with treatments due to loose stools) was admitted to the emergency department brought by the son with generalized weakness and significant right leg edema which is going on for the last 3 days. Patient apparently came to the ED last week and diagnosed with flu and was given Tamiflu. I saw her at the dialysis unit on and emphasize compliance. Her son is also on dialysis and was recently switched from MWF to TTS sessions. Hope she will be compliant. In the emergency department as she was having fever of 105, WBC 10.2, pH 7.51, lactic acid 4.1, LFTs were elevated, LDH 594, creatinine 6.9, BNP greater than 3280, Pro-Antwan 120, troponin 0.5. Urinalysis shows blood and protein with glucose. Chest x-ray showed fluid overload, head CT negative. Abdominal CT showed liver cirrhosis, pulmonary edema Patient denies any chest pain, nausea/vomiting, recent trauma or bug bite. Patient does walk with shoes and socks at home. Meds: Lomotil as needed, Sensipar 30 mg daily, Xphozah 30 mg, Lasix 40 mg daily, Cincalet, sevelamer carbonate 3 times daily Social history: Patient denies any smoking, alcohol use or illicit drug use. Patient will be admitted for sepsis secondary to RLE cellulitis. Renal consultation requested for need for dialysis. Patient currently seen on dialysis. 08/09/2024 patient currently seen in telemetry. Still having some pain in the right lower extremities at the site of extensive cellulitis. Edema tad better after dialysis although erythema still persist. Currently on Zosyn, Vanco. Denies any chest pain. Blood pressure 99/50, heart rate 82. WBC 13.7, hemoglobin 12.1. Platelets 128. Sodium 138, potassium 3.6, bicarbonate 31.2, BUN 30, creatinine 4.9, calcium 8.8, AST 111, total bilirubin 1.5, troponin 0.4, albumin 2.4, Echocardiogram showed ejection fraction 55%. Review of Systems Review of Systems Narrative Review of Systems: CONSTITUTIONAL: Patient c/o weakness, fever, chills. HEENT: Denies any visual disturbances or hearing problems. CARDIOVASCULAR: Patient denies any chest pain. c/o shortness of breath, swelling in the lower extremities. PULMONARY: Patient c/o shortness of breath, cough. GASTROINTESTINAL: Patient denies any abdominal pain, constipation, nausea, vomiting, diarrhea. GENITOURINARY: Patient denies any urinary symptoms of burning or frequency or hematuria, denies any form in the urine. SKIN: +++Erythema in the lower extremity right side MUSCULOSKELETAL: Patient complaining of gait imbalance from leg weakness NEUROLOGICAL: Denies any neurological problems of strokes, seizures or confusion. Denies any memory problems. PSYCHIATRIC: Denies any depression or anxiety. LYMPHATICS : No lymphadenopathy Exam Vital Signs Temp Pulse Resp BP Pulse Ox O2 Del Method O2 Flow Rate 36.8 C 82 18 99/50 L 98 Nasal Cannula 2 08/09/24 16:01 08/09/24 16:06 08/09/24 16:06 08/09/24 16:06 08/09/24 16:06 08/09/24 16:01 08/09/24 16:01 FiO2 2 08/08/24 20:00 Narrative Exam GENERAL APPEARANCE: Patient currently seen in telemetry NECK: Neck supple, no JVD or bruit CARDIOVASCULAR: Heart regular, no murmurs LUNGS/CHEST: Few crackles at the bases ABDOMEN: Soft, nontender, nondistended. No masses. Normal bowel sounds. EXTREMITIES: Significant edema in the lower extremities. Right lower extremity is a erythematous and warm to touch SKIN: Cellulitic rash of the right lower extremity--still significantly warm and erythematous MUSCULOSKELETAL: In bed NEUROLOGICAL : No neurological deficits Objective Labs 08/09/24 04:36 08/09/24 04:36 Labs: Laboratory Results - last 24 hr 08/08/24 08/09/24 21:29 04:36 WBC 13.7 H RBC 3.76 L Hgb 12.1 Hct 37.3 MCV 99 MCH 32.2 MCHC 32.4 RDW Std Deviation 54.4 H Plt Count 128 L Neut % (Auto) 91 H Lymph % (Auto) 4 L [place] % (Auto) 4 Eos % (Auto) 0 Baso % (Auto) 0 Neut # (Auto) 12.4 H Lymph # (Auto) 0.6 L [place] # (Auto) 0.5 Eos # (Auto) 0.0 Baso # (Auto) 0.0 Immature Gran # (Auto) 0.15 H Absolute Nucleated RBC 0.00 Immature Gran % 1 H Nucleated RBC % 0 Sodium 138 Potassium 3.6 Chloride 96 L Carbon Dioxide 31.2 H Anion Gap 11 BUN 30 H Creatinine 4.9 H* D Estim Creat Clear Calc 12.2 L eGFR 10 L* BUN/Creatinine Ratio 6 L Glucose 75 Calculated Osmolality 280 Calcium 7.5 L Corrected Calcium 8.8 Total Bilirubin 1.5 H AST 111 H ALT 38 Alkaline Phosphatase 54 Troponin I 0.402 H* Total Protein 5.3 L Albumin 2.4 L Globulin 2.9 Albumin/Globulin Ratio 0.8 L Random Vancomycin 16.1 ABG Interpretation ABG results: 08/08/24 01:28 ABG pH 7.51 H ABG pCO2 34 ABG pO2 108 ABG HCO3 27 H ABG O2 Saturation 99 H ABG Base Excess 4 H Assessment & Plan Assessment and plan (1) Anemia: Status: Acute Additional Assessment & Plan Additional Plan: 1) 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 ? ? Assessment and plan: Depending on edema-will plan for dialysis extra tomorrow. Her usual scheduled dialysis TTS. (2) Anemia: ?Status:?Chronic ? ? ? Assessment and plan: Monitor closely (3) sepsis secondary to right leg cellulitis ?Status:?Acute ? ? ? Assessment and plan: Patient was started on antibiotics-on Vanco, Zosyn. Still significant erythema noted. Blood cultures so far negative. (4) Hypoenson ?Status:?Chronic ? ? ? Assessment and plan: Question related to underlying sepsis. Echocardiogram showed normal ejection fraction. Will add midodrine. (5) diabetes mellitus: ?Status:? chronic ? ? ? Assessment and plan: Accu-Cheks, sliding scale, consistent carb low 6) noted elevation in liver enzymes question related to cirrhosis per CT Thank you Dr. Jones for allowing me to participate in the care of Ms. Aguilar.
--- NOTE | 2024-08-09 14:03 | PD.RESPRO ---
Documentation for date of: 08/09/24 Subjective Subjective Interval history: The patient is evaluated in the ICU, feeling subjectively better postdialysis compared to yesterday, noted improvement in bilateral lower extremity erythema, edema on right leg has shrunk to below the knee, and moderately reduced on the left leg. Will continue with Vanco and Zosyn, follow microbiology results. Hemodialysis per schedule. Exam Vital Signs Temp Pulse Resp BP Pulse Ox O2 Del Method O2 Flow Rate 99.6 F 88 22 H 106/55 L 94 L Nasal Cannula 2 08/09/24 12:00 08/09/24 12:59 08/09/24 12:59 08/09/24 12:59 08/09/24 12:59 08/09/24 12:00 08/09/24 12:00 FiO2 2 08/08/24 20:00 Narrative Exam GENERAL APPEARANCE: Patient in icu. Looks slightly older than her stated age. Sick looking NECK: Neck supple, no JVD or bruit CARDIOVASCULAR: Heart regular, no murmurs LUNGS/CHEST: Few crackles at the bases ABDOMEN: Soft, nontender, nondistended. No masses. Normal bowel sounds. EXTREMITIES: noted improvement in bilateral lower extremity erythema, edema on right leg has shrunk to below the knee, and moderately reduced on the left leg. NEUROLOGICAL : No neurological deficits Objective Labs 08/09/24 04:36 08/09/24 04:36 Labs: Laboratory Results - last 24 hr 08/08/24 08/08/24 08/09/24 14:04 21:29 04:36 WBC 13.7 H RBC 3.76 L Hgb 12.1 Hct 37.3 MCV 99 MCH 32.2 MCHC 32.4 RDW Std Deviation 54.4 H Plt Count 128 L Neut % (Auto) 91 H Lymph % (Auto) 4 L [place] % (Auto) 4 Eos % (Auto) 0 Baso % (Auto) 0 Neut # (Auto) 12.4 H Lymph # (Auto) 0.6 L [place] # (Auto) 0.5 Eos # (Auto) 0.0 Baso # (Auto) 0.0 Immature Gran # (Auto) 0.15 H Absolute Nucleated RBC 0.00 Immature Gran % 1 H Nucleated RBC % 0 Sodium 138 Potassium 3.6 Chloride 96 L Carbon Dioxide 31.2 H Anion Gap 11 BUN 30 H Creatinine 4.9 H* D Estim Creat Clear Calc 12.2 L eGFR 10 L* BUN/Creatinine Ratio 6 L Glucose 75 Calculated Osmolality 280 Calcium 7.5 L Corrected Calcium 8.8 Total Bilirubin 1.5 H AST 111 H ALT 38 Alkaline Phosphatase 54 Troponin I 0.465 H* 0.402 H* Total Protein 5.3 L Albumin 2.4 L Globulin 2.9 Albumin/Globulin Ratio 0.8 L Random Vancomycin 16.1 ABG Interpretation ABG results: 08/08/24 01:28 ABG pH 7.51 H ABG pCO2 34 ABG pO2 108 ABG HCO3 27 H ABG O2 Saturation 99 H ABG Base Excess 4 H Quality Measures Quality Measures sepsis Current suspected stage: sepsis Possible source: skin/soft tissue Blood cultures ordered: yes Antibiotic ordered: Yes Assessment & Plan Assessment Current Active Medications: Generic Name Dose Route Start Last Admin Trade Name Freq PRN Reason Stop Dose Admin Acetaminophen 650 mg 08/08/24 03:24 Acetaminophen 325 Mg Tablet PO 09/07/24 03:23 Q6H PRN Fever >100.3 or Pain 1-3 Dextrose 25 ml 08/08/24 04:55 Dextrose 50%-Water Inj 50 Ml Syringe IV 09/07/24 04:54 Q15MIN PRN BG 50-70 responsive npo pt Dextrose 50 ml 08/08/24 04:55 Dextrose 50%-Water Inj 50 Ml Syringe IV 09/07/24 04:54 Q15MIN PRN BG <50 OR BG <70 & pt unresponsive Heparin Sodium (Porcine) 5,000 unit 08/08/24 09:00 08/09/24 08:48 Heparin Sod Inj 5000 Unit/Ml Vial SC 08/22/24 08:59 5,000 unit Q12HR LIU Administration Piperacillin/Tazobactam/Dextrose 50 mls @ 12.5 mls/hr 08/08/24 09:00 08/09/24 08:48 Zosyn IV 08/15/24 08:59 12.5 mls/hr Q12HR LIU Administration Metoclopramide HCl 10 mg 08/08/24 03:24 Metoclopramide 5 Mg Tablet PO 09/07/24 03:23 Q6H PRN NAUSEA OR VOMITING Oxycodone/Acetaminophen 1 tab 08/08/24 03:24 08/08/24 13:58 Oxycodone/Apap 5/325 Tablet PO 08/13/24 03:23 1 tab Q6H PRN Administration PAIN SCALE 4-10(Mod-Sev Pharmacy Consult 1 each 08/08/24 12:15 Vancomycin Pharmacy To Dose 1 Each Each IV 09/07/24 12:14 QDAY PRN PROTOCOL Plan Patient is a 54-year-old female with HTN, ESRD on HD MWF, T2DM who was brought to the ED by her son due to altered mental status. Additionally, son states that patient had severe generalized weakness and needed to be carried to her bedroom. Son states that patient's legs have gotten swollen and red. Patient will be admitted for sepsis secondary to RLE cellulitis. #Sepsis, secondary to #bilateral lower extremity cellulitis Patient meets SIRS criteria + source; [place] 4.1, Pro-Antwan 120 although may be falsely elevated in setting of ESRD -Blood and urine culture sent -MRSA nares ordered -Started on IV Vancomycin and Zosyn renally dosed started 08/08/2024 -As needed acetaminophen -Trend [place] #Acute encephalopathy- improving Likely secondary to sepsis from cellulitis and/or Tamiflu administration. Patient given Tamiflu 75mg BID on 08/02/24, which was not renally dosed. Head CT negative for hemorrhage. Per son, patient is not back to her baseline, as she generally is very talkative and is A&O x 3. #Influenza B+ Tested postive on 08/02/24. Unsure if patient took dose BID since 08/02/24. -Gave a x1 order of Tamiflu 30mg -Patient finished 5 day course of Tamiflu, however since Tamiflu is renally dose, patient will need HD today #Abdominal pain #IBS TTP on exam Patient takes medications for IBS Follow-up CT A/P, showed cirrhosis/anasarca/ascites Consider diuresing as patient appears to be fluid overloaded on CXR and CT, however clinically patient is not tachypneic or SOB. #ESRD on HD, MWF #Fluid overload state BNP >3280 with edema noted -Nephrology consulted to continue hemodialysis; appreciate recs, will most likely need HD session today -Will resume home meds -Echo ordered to evaluate for possible CHF component, last Echo EF showed 40-45% #NSTEMI, likely type II Denies any chest pain at this time; likely secondary to sepsis Troponin 0.553, continue to trend until delta noted #Mild transaminitis #Mild hyperbilirubinemia T. bili 1.6, AST 138, ALT and ALP within normal limits Reviewed previous CT abdomen pelvis which was concerning for cirrhosis/anasarca/ascites -Can consider obtaining liver ultrasound #HTN Patient takes Lasix at home BP stable at this time, will hold off on antihypertensives for now -Consider Lasix as patient did receive 2L of fluids in the setting of previous hx of HFrEF documented in last Echo in November 2022 #History of T2DM Last A1c 6.9% in November 2022 Glucose 69 on CHEM panel, continue to monitor -Hypoglycemic protocol in place -Can consider obtaining A1c Health maintenance Dispo: Admitted for sepsis secondary to cellulitis, on IV antibiotics DVT prophylaxis: Heparin GI PPx: None Diet: Renal CODE STATUS: Full code Assessment and plan discussed with my attending physician Dr. Bela Alberts (PGY-2)- Internal medicine resident Attending Provider Attestation/Addendum Patient has less lower extremity edema. Decreased with erythema noted. Patient had hemodialysis yesterday. Vital signs are stable. Discussed with housestaff
[2024-08-09] MEDS: MIDODRINE 5 MG TABLET 10 MG PO (20:29)
[2024-08-09] MEDS: ALBUMIN HUMAN 25% IVPB 25 GM/100 ML BTL IV (20:29)
[2024-08-10] VITALS (21 sets, daily range): BP systolic 104–145; BP diastolic 50–83; PULSE 67–86; RESP 12–20; TEMP 36.2–38.4; O2SAT 96–98; BMI 33.0
[2024-08-10] MEDS: ACETAMINOPHEN 325 MG TABLET 650 MG PO (04:10)
[2024-08-10 06:32] LABS: Basophils # (Auto) 0.1 Thou/mm3 (0.0-0.2); Basophils % (Auto) 1 % (0-2.5); Eosinophils % (Auto) 0 % (0-10); Hemoglobin 10.8 g/dL (12.0-16.0); Immature Granulocytes % (Auto) 1 % (0-0); Immature Granulocytes Auto 0.17 Thou/mm3 (0.00-0.00); Lymphocytes % (Auto) 6 % (10-50); Mean Corpuscular HGB Conc 32.7 g/dl (31.0-37.0); Mean Corpuscular Hemoglobin 31.5 pg (25.0-35.0); Mean Corpuscular Volume 96 fL (80-100); Monocytes % (Auto) 6 % (0-12); Neutrophils # (Auto) 14.9 Thou/mm3 (1.8-7.7); Neutrophils % (Auto) 86 % (37-80); Nucleated Red Blood Cell % 0 /100 WBC (0); Platelet Count 96 Thou/mm3 (140-440); Red Blood Count 3.43 Miln/mm3 (4.00-5.20); White Blood Count 17.3 Thou/mm3 (3.6-11.0)
[2024-08-10 07:35] LABS: Alanine Aminotransferase 33 U/L (10-49); Albumin, Serum 2.7 gm/dL (3.5-5.0); Albumin/Globulin Ratio 0.9 (1.2-2.2); Alkaline Phosphatase 57 U/L (46-116); Anion Gap 11 (7-16); Aspartate Amino Transferase 54 U/L (0-34); BUN/Creatinine Ratio 8 Ratio (12-20); Bilirubin,Total 1.4 mg/dL (0.3-1.2); Blood Urea Nitrogen 43 mg/dL (9-23); Carbon Dioxide 27.3 mMol/L (20.0-31.0); Chloride 96 mMol/L (98-107); Creatinine (Component) 5.6 mg/dL (0.6-1.3); Estimated Creatinine Clearance 10.6 mL/min (>60); Globulin 2.9 gm/dL (2.3-3.5); Glucose 128 mg/dL (74-106); Osmolality,Calculated 281 (275-295); Potassium 3.4 mMol/L (3.4-5.1); Sodium 134 mMol/L (136-145); Total Protein 5.6 gm/dL (5.7-8.2); eGFR 9 See Note
--- NOTE | 2024-08-10 08:29 | ESPR_ITS ---
Documentation for date of: 08/10/24 Subjective Subjective Interval history: Patient was seen and examined at bedside this AM. Daughter at bedside. This a.m. patient had fever of 101F Patient tolerating diet, adequate urine output and mentation is at baseline. Patient endorses improvement of right lower extremity pain. WBC up trended to 17.3 from 13.7 and PLT down trended to 96 from 128. Will repeat blood cultures today and hold heparin in light of thrombocytopenia. Most likely patient has right lower extremity cellulitis but will order lower limb venous Doppler as well as arterial Doppler to rule out any PAD/DVT. Exam Vital Signs Temp Pulse Resp BP Pulse Ox O2 Del Method O2 Flow Rate 101 F H 79 12 117/69 96 Nasal Cannula 2 08/10/24 04:10 08/10/24 04:00 08/10/24 04:00 08/10/24 04:00 08/10/24 04:00 08/10/24 04:00 08/10/24 04:00 FiO2 2 08/08/24 20:00 Narrative Exam Constitutional Alert, oriented x 3 and comfortable. Middle-age female, appears much older than her age. HEENT Vision grossly intact. Patent nares. Trachea midline Respiratory Chest normal on inspection and clear auscultation bilaterally Cardiovascular S1 and S2 audible, RRR. No murmurs carotid bruit. No gross JVD. Abdominal Soft and non tender to palpation in all quadrants. BS + Genitourinary No bladder tenderness, no flank pain. Normal to palpation Musculoskeletal Extremities tone within normal limits. 2+ right lower extremity pitting edema up to knee as well as erythematous up to groin. Neurological CN II - XII grossly intact. Extremity motor and sensation grossly intact. Skin Warm, dry and intact. No apparent lesions. Psychiatric Patient has flat affect, is cooperative Objective Labs 08/11/24 05:32 08/11/24 05:32 Labs: Laboratory Results - last 24 hr 08/10/24 06:05 WBC 17.3 H RBC 3.43 L Hgb 10.8 L Hct 33.0 L MCV 96 MCH 31.5 MCHC 32.7 RDW Std Deviation 54.0 H Plt Count 96 L D Neut % (Auto) 86 H Lymph % (Auto) 6 L [place] % (Auto) 6 Eos % (Auto) 0 Baso % (Auto) 1 Neut # (Auto) 14.9 H Lymph # (Auto) 1.0 [place] # (Auto) 1.0 H Eos # (Auto) 0.0 Baso # (Auto) 0.1 Immature Gran # (Auto) 0.17 H Absolute Nucleated RBC 0.00 Immature Gran % 1 H Nucleated RBC % 0 Sodium 134 L Potassium 3.4 Chloride 96 L Carbon Dioxide 27.3 Anion Gap 11 BUN 43 H Creatinine 5.6 H* D Estim Creat Clear Calc 10.6 L eGFR 9 L* BUN/Creatinine Ratio 8 L Glucose 128 H D Calculated Osmolality 281 Calcium 8.0 L Corrected Calcium 9.0 Total Bilirubin 1.4 H AST 54 H ALT 33 Alkaline Phosphatase 57 Total Protein 5.6 L Albumin 2.7 L Globulin 2.9 Albumin/Globulin Ratio 0.9 L Random Vancomycin 20.0 ABG Interpretation ABG results: 08/08/24 01:28 ABG pH 7.51 H ABG pCO2 34 ABG pO2 108 ABG HCO3 27 H ABG O2 Saturation 99 H ABG Base Excess 4 H Quality Measures Quality Measures sepsis Current suspected stage: sepsis Possible source: skin/soft tissue Blood cultures ordered: yes Antibiotic ordered: Yes Assessment & Plan Assessment Current Active Medications: Generic Name Dose Route Start Last Admin Trade Name Freq PRN Reason Stop Dose Admin Acetaminophen 650 mg 08/08/24 03:24 08/10/24 04:10 Acetaminophen 325 Mg Tablet PO 09/07/24 03:23 650 mg Q6H PRN Administration Fever >100.3 or Pain 1-3 Dextrose 25 ml 08/08/24 04:55 Dextrose 50%-Water Inj 50 Ml Syringe IV 09/07/24 04:54 Q15MIN PRN BG 50-70 responsive npo pt Dextrose 50 ml 08/08/24 04:55 Dextrose 50%-Water Inj 50 Ml Syringe IV 09/07/24 04:54 Q15MIN PRN BG <50 OR BG <70 & pt unresponsive Heparin Sodium (Porcine) 5,000 unit 08/08/24 09:00 08/09/24 20:42 Heparin Sod Inj 5000 Unit/Ml Vial SC 08/22/24 08:59 5,000 unit Q12HR LIU Administration Piperacillin/Tazobactam/Dextrose 50 mls @ 12.5 mls/hr 08/08/24 09:00 08/09/24 20:45 Zosyn IV 08/15/24 08:59 12.5 mls/hr Q12HR LIU Administration Albumin Human 25 gm in 100 mls @ 100 mls/hr 08/09/24 21:00 08/09/24 21:30 Albuminar-25 Ivpb IV 08/12/24 20:59 Infused BID LIU Infusion Metoclopramide HCl 10 mg 08/08/24 03:24 Metoclopramide 5 Mg Tablet PO 09/07/24 03:23 Q6H PRN NAUSEA OR VOMITING Midodrine 10 mg 08/09/24 21:00 08/09/24 20:29 Midodrine 5 Mg Tablet PO 09/08/24 20:59 10 mg BID LIU Administration Oxycodone/Acetaminophen 1 tab 08/08/24 03:24 08/08/24 13:58 Oxycodone/Apap 5/325 Tablet PO 08/13/24 03:23 1 tab Q6H PRN Administration PAIN SCALE 4-10(Mod-Sev Pharmacy Consult 1 each 08/08/24 12:15 Vancomycin Pharmacy To Dose 1 Each Each IV 09/07/24 12:14 QDAY PRN PROTOCOL Plan Patient is a 54-year-old female with HTN, ESRD on HD MWF, T2DM who was brought to the ED by her son due to altered mental status. Additionally, son states that patient had severe generalized weakness and needed to be carried to her bedroom. Son states that patient's legs have gotten swollen and red. Patient will be admitted for sepsis secondary to RLE cellulitis. #Sepsis, secondary to #bilateral lower extremity cellulitis #Rule out DVT #Rule out PAD Patient meets SIRS criteria + source; LA 4.1, Pro-Antwan 120 although may be falsely elevated in setting of ESRD Blood cultures negative x 48 hours MRSA nasal screen negative Patient had temperature spike this morning of 101F Plan: ? Repeat blood cultures ordered ? Bilateral lower limb venous Doppler ultrasound ordered to rule out DVT ? Bilateral lower extremity arterial duplex with PHILOMENA ordered to rule out PAD - Continue Zosyn 3.375 g IV twice daily started on [08/08? ? Continue vancomycin 1 g IV daily started on [08/08? #Thrombocytopenia On admission plt 151, currently down trended to 96 Etiology: ESRD, heparin use 4 HTS score 1 point; low probability of heparin-induced thrombocytopenia Plan: ? Will hold heparin for now in light of thrombocytopenia. #Acute metabolic encephalopathy- improving Likely secondary to sepsis from cellulitis and/or Tamiflu administration. Patient given Tamiflu 75mg BID on 08/02/24, which was not renally dosed. Head CT negative for hemorrhage. Per son, patient is not back to her baseline, as she generally is very talkative and is A&O x 3. #Influenza B+ Tested postive on 08/02/24. Unsure if patient took dose BID since 08/02/24. -Gave a x1 order of Tamiflu 30mg -Patient finished 5 day course of Tamiflu, however since Tamiflu is renally dose, patient will need HD today #Abdominal pain #IBS TTP on exam Patient takes medications for IBS Follow-up CT A/P, showed cirrhosis/anasarca/ascites Consider diuresing as patient appears to be fluid overloaded on CXR and CT, however clinically patient is not tachypneic or SOB. #ESRD on HD, TTS # Chronic systolic heart failure with preserved ejection fraction [55%] BNP >3280 with edema noted Transthoracic echocardiogram completed on 08/08/2024 findings include: Normal LV size. Hypokinetic anterior septal wall motion. Estimated EF 55 %. RV is mildly dilated with moderately decreased systolic function. Estimated RVSP, 47mmHg. RAP 15. Mild MR. Moderate TR. Last HD session on 08/09/2024 Plan: ?For HD today as per nephrology #NSTEMI, likely type II Denies any chest pain at this time; likely secondary to sepsis Troponin 0.553, continue to trend until delta noted #Mild transaminitis #Mild hyperbilirubinemia T. bili 1.6, AST 138, ALT and ALP within normal limits Reviewed previous CT abdomen pelvis which was concerning for cirrhosis/anasarca/ascites -Can consider obtaining liver ultrasound # Essential HTN Patient takes Lasix at home BP stable at this time, will hold off on antihypertensives for now -Consider Lasix as patient did receive 2L of fluids in the setting of previous hx of HFrEF documented in last Echo in November 2022 #History of T2DM Last A1c 6.9% in November 2022 Glucose 69 on CHEM panel, continue to monitor -Hypoglycemic protocol in place -Can consider obtaining A1c Health maintenance: Disposition: Repeat blood cultures. Lower limb arterial and venous Dopplers. Hemodialysis today Diet: Renal Lines: pIVs GI Prophylaxis: None Thrombo Prophylaxis: None Code status: FULL CODE Plan of care discussed with Attending Dr. Temi Alvarado MD PGY 1 Attending Provider Attestation/Addendum I have discussed and was present for the essential components of the history, physical examination, diagnosis, and treatment plan with the resident. I agree with the patient's care as documented by the resident and amended herein by me. Jay Membreno, DO. Although this document has been carefully reviewed, there may still be some phonetic and other typographical errors. These errors are purely grammatical due to imperfections in the software program and should not be construed in any way to compromise the substance of the patient's medical care during this visit.
[2024-08-10] MEDS: PIPER/TAZO 3.375 GM 50 ML IV ×2 (08:40→21:33)
[2024-08-10] MEDS: ALBUMIN HUMAN 25% IVPB 25 GM/100 ML BTL IV ×2 (08:42→21:55)
[2024-08-10] MEDS: MIDODRINE 5 MG TABLET 10 MG PO (08:48)
[2024-08-10] MEDS: HEPARIN SOD INJ 5000 UNIT/ML VIAL SC (08:49)
--- NOTE | 2024-08-10 09:05 | ESPR_ITS ---
Documentation for date of: 08/10/24 Subjective Subjective Interval history: Ms. Aguilar is a 54-year-old lady with extensive past medical history of uncontrolled hypertension and diabetes for many years ended up on dialysis 2 years ago under my care and has been coming to dialysis treatments on TTS (noncompliant with treatments due to loose stools) was admitted to the emergency department brought by the son with generalized weakness and significant right leg edema which is going on for the last 3 days. Patient apparently came to the ED last week and diagnosed with flu and was given Tamiflu. I saw her at the dialysis unit on and emphasize compliance. Her son is also on dialysis and was recently switched from MWF to TTS sessions. Hope she will be compliant. In the emergency department as she was having fever of 105, WBC 10.2, pH 7.51, lactic acid 4.1, LFTs were elevated, LDH 594, creatinine 6.9, BNP greater than 3280, Pro-Antwan 120, troponin 0.5. Urinalysis shows blood and protein with glucose. Chest x-ray showed fluid overload, head CT negative. Abdominal CT showed liver cirrhosis, pulmonary edema Patient denies any chest pain, nausea/vomiting, recent trauma or bug bite. Patient does walk with shoes and socks at home. Meds: Lomotil as needed, Sensipar 30 mg daily, Xphozah 30 mg, Lasix 40 mg daily, Cincalet, sevelamer carbonate 3 times daily Social history: Patient denies any smoking, alcohol use or illicit drug use. Patient will be admitted for sepsis secondary to RLE cellulitis. Renal consultation requested for need for dialysis. Patient currently seen on dialysis. 08/09/2024 patient currently seen in telemetry. Still having some pain in the right lower extremities at the site of extensive cellulitis. Edema tad better after dialysis although erythema still persist. Currently on Zosyn, Vanco. Denies any chest pain. Blood pressure 99/50, heart rate 82. WBC 13.7, hemoglobin 12.1. Platelets 128. Sodium 138, potassium 3.6, bicarbonate 31.2, BUN 30, creatinine 4.9, calcium 8.8, AST 111, total bilirubin 1.5, troponin 0.4, albumin 2.4, Echocardiogram showed ejection fraction 55%. 08/10/2024: The patient was examined and interviewed at the bedside this morning. She still has anasarca, extensive cellulitis of right leg, and was saturating 97% on 1 L NC. Other vitals fairly stable, WBC trended up to 17.3, chemistry panel significant for ESRD. The patient had 1 hemodialysis on today, as she still seems to be on volume overload. Exam Vital Signs Temp Pulse Resp BP Pulse Ox O2 Del Method O2 Flow Rate 97.1 F 76 17 104/55 L 97 Nasal Cannula 1 08/10/24 08:48 08/10/24 08:48 08/10/24 08:00 08/10/24 08:48 08/10/24 08:00 08/10/24 08:00 08/10/24 08:00 FiO2 2 08/08/24 20:00 Narrative Exam General: No acute distress, Alert and Oriented x 3 HEENT: Moist mucous membranes, oropharynx clear Neck: Supple, No masses, No JVD CVS: S1S2 Regular rate and rhythm, No murmurs, rubs or gallops Lungs: Clear to auscultation with no accessory use, no wheeze no rhonchi Abd: Soft, NT/ND, +BS, no organomegaly Ext: Anasarca, right leg erythema, peripheral arteries barely palpable over bilateral lower limb extremities Skin: No rash Psych: Appropriate mood and affect Objective Labs 08/12/24 05:22 08/11/24 05:32 Labs: Laboratory Results - last 24 hr 08/10/24 06:05 WBC 17.3 H RBC 3.43 L Hgb 10.8 L Hct 33.0 L MCV 96 MCH 31.5 MCHC 32.7 RDW Std Deviation 54.0 H Plt Count 96 L D Neut % (Auto) 86 H Lymph % (Auto) 6 L [place] % (Auto) 6 Eos % (Auto) 0 Baso % (Auto) 1 Neut # (Auto) 14.9 H Lymph # (Auto) 1.0 [place] # (Auto) 1.0 H Eos # (Auto) 0.0 Baso # (Auto) 0.1 Immature Gran # (Auto) 0.17 H Absolute Nucleated RBC 0.00 Immature Gran % 1 H Nucleated RBC % 0 Sodium 134 L Potassium 3.4 Chloride 96 L Carbon Dioxide 27.3 Anion Gap 11 BUN 43 H Creatinine 5.6 H* D Estim Creat Clear Calc 10.6 L eGFR 9 L* BUN/Creatinine Ratio 8 L Glucose 128 H D Calculated Osmolality 281 Calcium 8.0 L Corrected Calcium 9.0 Total Bilirubin 1.4 H AST 54 H ALT 33 Alkaline Phosphatase 57 Total Protein 5.6 L Albumin 2.7 L Globulin 2.9 Albumin/Globulin Ratio 0.9 L Random Vancomycin 20.0 ABG Interpretation ABG results: 08/08/24 01:28 ABG pH 7.51 H ABG pCO2 34 ABG pO2 108 ABG HCO3 27 H ABG O2 Saturation 99 H ABG Base Excess 4 H Quality Measures Quality Measures sepsis Current suspected stage: ruled out Possible source: skin/soft tissue Blood cultures ordered: yes Antibiotic ordered: Yes Assessment & Plan Assessment Current Active Medications: Generic Name Dose Route Start Last Admin Trade Name Freq PRN Reason Stop Dose Admin Acetaminophen 650 mg 08/08/24 03:24 08/10/24 04:10 Acetaminophen 325 Mg Tablet PO 09/07/24 03:23 650 mg Q6H PRN Administration Fever >100.3 or Pain 1-3 Dextrose 25 ml 08/08/24 04:55 Dextrose 50%-Water Inj 50 Ml Syringe IV 09/07/24 04:54 Q15MIN PRN BG 50-70 responsive npo pt Dextrose 50 ml 08/08/24 04:55 Dextrose 50%-Water Inj 50 Ml Syringe IV 09/07/24 04:54 Q15MIN PRN BG <50 OR BG <70 & pt unresponsive Piperacillin/Tazobactam/Dextrose 50 mls @ 12.5 mls/hr 08/08/24 09:00 08/10/24 08:40 Zosyn IV 08/15/24 08:59 12.5 mls/hr Q12HR LIU Administration Albumin Human 25 gm in 100 mls @ 100 mls/hr 08/09/24 21:00 08/10/24 08:42 Albuminar-25 Ivpb IV 08/12/24 20:59 100 mls/hr BID LIU Administration Metoclopramide HCl 10 mg 08/08/24 03:24 Metoclopramide 5 Mg Tablet PO 09/07/24 03:23 Q6H PRN NAUSEA OR VOMITING Midodrine 10 mg 08/09/24 21:00 08/10/24 08:48 Midodrine 5 Mg Tablet PO 09/08/24 20:59 10 mg BID LIU Administration Oxycodone/Acetaminophen 1 tab 08/08/24 03:24 02/01/25 13:58 Oxycodone/Apap 5/325 Tablet PO 08/13/24 03:23 1 tab Q6H PRN Administration PAIN SCALE 4-10(Mod-Sev Pharmacy Consult 1 each 08/08/24 12:15 Vancomycin Pharmacy To Dose 1 Each Each IV 09/07/24 12:14 QDAY PRN PROTOCOL Plan The patient is a 54-year-old female with significant past medical history of ESRD 2/2 hypertension and type 2 diabetes mellitus presented to ED with chief complaint of altered mental status was found to have severe right leg cellulitis. Nephrology consultation was done for further management of ESRD and hemodialysis. #ESRD secondary to hypertensive/diabetic nephropathy Patient seems to be on volume overloaded status, with anasarca -Will get 1 session of hemodialysis today -We will continue with regularly scheduled hemodialysis session on TTS #Anemia: DDx: More likely dilutional in the setting of volume overload, versus less likely anemia of chronic disease secondary to ESRD Hemoglobin seems to be stable once he is euvolemic, and seems to be anemic when she is volume overload. -Continue to monitor hemoglobin daily #Sepsis secondary to right leg cellulitis Patient was started on antibiotics-on Vanco, Zosyn. Still significant erythema noted. Blood cultures so far negative. #Hypotension Likely in the setting of underlying cellulitis. Echocardiogram showed normal ejection fraction. -Continue with midodrine 10 mg twice daily, may increase up to 10 mg 3 times daily if blood pressure remains soft #Diabetes mellitus type II -Accu-Cheks, sliding scale, consistent carb diet #Possible cirrhosis As revealed by abdomen/pelvis CT -As per primary team #PAD -Management deferred to primary team Thank you for allowing nephrology team to be a part of patient care. The patient's management plan was discussed with my attending physician MD Ajit Bailey MD, PGY2 Attending Provider Attestation/Addendum Patient seen and examined with resident physician Dr. Wilkerson. Note reviewed, agree with findings and recommendations. Continues to have significant fluid overload and ordered extra dialysis treatment. patient currently seen on dialysis. Tolerating dialysis without any problems. Hemodialysis for 3 hours, 2K, ultrafiltration 2-3 L, Epogen 6000, no heparin ordered. Plan of care discussed with the dialysis nurse. Please see dialysis flowsheet for further details. Next dialysis will be scheduled for tomorrow. Continue with broad-spectrum antibiotics for right lower extremity cellulitis.
--- NOTE | 2024-08-10 09:52 | PC.SS ---
Follow up note: Fever over night. On IV antibiotic.
--- NOTE | 2024-08-10 11:11 | XR_ITS ---
Examination: Arterial duplex lower extremity study. Date and time of exam: August 10, 2024 1908 hours INDICATIONS: Bilateral leg redness swelling and pain beginning 3 days ago Findings: Duplex sonographic imaging of the lower extremity arteries using B-mode/[place] scale imaging and Doppler spectral analysis and color flow. Ankle brachial indices have been recorded. Right common femoral artery demonstrates biphasic flow. Right superficial femoral artery demonstrates monophasic flow. Right popliteal artery demonstrates monophasic flow. Right posterior tibial artery demonstrated monophasic flow. Right ankle/brachial index is 1.1 . Left common femoral artery demonstrates biphasic flow. Left superficial femoral artery demonstrates biphasic flow. Left popliteal artery demonstrates biphasic flow. Left posterior tibial artery demonstrated biphasic flow. Impression: Bilateral peripheral obstructive arterial disease, more severe involving the right lower extremity. Consider correlation with CTA abdominal aortoiliofemoral runoff post intravenous contrast follow-up
--- NOTE | 2024-08-10 11:11 | XR_ITS ---
Examination: Venous duplex lower extremity sonogram, bilateral. Date and time of exam: August 10, 2024 1849 hours INDICATIONS: Bilateral leg swelling redness and pain beginning 3 days ago Technique: Multiple sonographic images of the deep venous system have been obtained. B-mode/2-D grayscale imaging of vascular structures and Doppler spectral analysis (waveforms) and color performed Both legs are examined. Findings: Deep venous systems do not demonstrate abnormal echogenicity. All visualized deep veins exhibit compressibility. Impression: Limited study, pronounced edema, no DVT demonstrated
[2024-08-10 15:49] LABS: Glucose Estimated Average 157 mg/dL (80-131); Hemoglobin A1C 7.1 % Hgb (4.8-6.0)
[2024-08-11] VITALS (27 sets, daily range): BP systolic 124–153; BP diastolic 59–86; PULSE 6–101; RESP 16–100; TEMP 36.6–37.7; O2SAT 9–95; BMI 32.5
[2024-08-11 06:30] LABS: Basophils # (Auto) 0.1 Thou/mm3 (0.0-0.2); Basophils % (Auto) 1 % (0-2.5); Eosinophils % (Auto) 0 % (0-10); Hematocrit 34.2 % (36.0-46.0); Hemoglobin 11.5 g/dL (12.0-16.0); Immature Granulocytes % (Auto) 1 % (0-0); Immature Granulocytes Auto 0.17 Thou/mm3 (0.00-0.00); Lymphocytes % (Auto) 7 % (10-50); Mean Corpuscular HGB Conc 33.6 g/dl (31.0-37.0); Mean Corpuscular Hemoglobin 31.9 pg (25.0-35.0); Mean Corpuscular Volume 95 fL (80-100); Monocytes # (Auto) 1.2 Thou/mm3 (0.0-0.8); Monocytes % (Auto) 8 % (0-12); Neutrophils # (Auto) 12.6 Thou/mm3 (1.8-7.7); Neutrophils % (Auto) 83 % (37-80); Nucleated Red Blood Cell # 0.02 Thou/mm3 (0.00-0.00); Nucleated Red Blood Cell % 0 /100 WBC (0); Platelet Count 80 Thou/mm3 (140-440); RDW Standard Deviation 52.4 fL (36.4-46.3); Red Blood Count 3.61 Miln/mm3 (4.00-5.20); White Blood Count 15.1 Thou/mm3 (3.6-11.0)
[2024-08-11 07:06] LABS: Alanine Aminotransferase 26 U/L (10-49); Albumin, Serum 3.2 gm/dL (3.5-5.0); Alkaline Phosphatase 71 U/L (46-116); Anion Gap 11 (7-16); Aspartate Amino Transferase 32 U/L (0-34); BUN/Creatinine Ratio 8 Ratio (12-20); Bilirubin,Total 2.3 mg/dL (0.3-1.2); Blood Urea Nitrogen 53 mg/dL (9-23); Calcium 8.8 mg/dL (8.3-10.6); Calcium (Corrected) 9.4 mg/dL (8.5-10.1); Carbon Dioxide 27.2 mMol/L (20.0-31.0); Chloride 93 mMol/L (98-107); Creatinine (Component) 6.3 mg/dL (0.6-1.3); Estimated Creatinine Clearance 9.4 mL/min (>60); Globulin 3.1 gm/dL (2.3-3.5); Glucose 129 mg/dL (74-106); Osmolality,Calculated 279 (275-295); Phosphorous 3.3 mg/dL (2.4-5.1); Potassium 3.8 mMol/L (3.4-5.1); Sodium 131 mMol/L (136-145); Total Protein 6.3 gm/dL (5.7-8.2); eGFR 7 See Note
[2024-08-11 07:20] LABS: Vancomycin,Random 18.4 mcg/mL
[2024-08-11] MEDS: MIDODRINE 5 MG TABLET 10 MG PO (08:28)
[2024-08-11] MEDS: PIPER/TAZO 3.375 GM 50 ML IV (08:29)
[2024-08-11] MEDS: ALBUMIN HUMAN 25% IVPB 25 GM/100 ML BTL IV ×2 (08:29→21:00)
--- NOTE | 2024-08-11 08:48 | PD.RESPRO ---
Documentation for date of: 08/11/24 Subjective Subjective Interval history: Ms. Aguilar is a 54-year-old lady with extensive past medical history of uncontrolled hypertension and diabetes for many years ended up on dialysis 2 years ago under my care and has been coming to dialysis treatments on TTS (noncompliant with treatments due to loose stools) was admitted to the emergency department brought by the son with generalized weakness and significant right leg edema which is going on for the last 3 days. Patient apparently came to the ED last week and diagnosed with flu and was given Tamiflu. I saw her at the dialysis unit on and emphasize compliance. Her son is also on dialysis and was recently switched from MWF to TTS sessions. Hope she will be compliant. In the emergency department as she was having fever of 105, WBC 10.2, pH 7.51, lactic acid 4.1, LFTs were elevated, LDH 594, creatinine 6.9, BNP greater than 3280, Pro-Antwan 120, troponin 0.5. Urinalysis shows blood and protein with glucose. Chest x-ray showed fluid overload, head CT negative. Abdominal CT showed liver cirrhosis, pulmonary edema Patient denies any chest pain, nausea/vomiting, recent trauma or bug bite. Patient does walk with shoes and socks at home. Meds: Lomotil as needed, Sensipar 30 mg daily, Xphozah 30 mg, Lasix 40 mg daily, Cincalet, sevelamer carbonate 3 times daily Social history: Patient denies any smoking, alcohol use or illicit drug use. Patient will be admitted for sepsis secondary to RLE cellulitis. Renal consultation requested for need for dialysis. Patient currently seen on dialysis. 08/09/2024 patient currently seen in telemetry. Still having some pain in the right lower extremities at the site of extensive cellulitis. Edema tad better after dialysis although erythema still persist. Currently on Zosyn, Vanco. Denies any chest pain. Blood pressure 99/50, heart rate 82. WBC 13.7, hemoglobin 12.1. Platelets 128. Sodium 138, potassium 3.6, bicarbonate 31.2, BUN 30, creatinine 4.9, calcium 8.8, AST 111, total bilirubin 1.5, troponin 0.4, albumin 2.4, Echocardiogram showed ejection fraction 55%. 08/10/2024: The patient was examined and interviewed at the bedside this morning. She still has anasarca, extensive cellulitis of right leg, and was saturating 97% on 1 L NC. Other vitals fairly stable, CR trended up to 17.3, chemistry panel significant for ESRD. The patient had 1 hemodialysis on today, as she still seems to be on volume overload. 08/11/2024: The patient was examined and interviewed at the bedside this morning. She reported doing well. Physical examination was significant for 2-3+ peripheral pitting edema. Still has cellulitis of right leg with erythema. Labs significant for decreasing WBC to 15.1, hemoglobin 11.5 likely dilutional, sodium 131, chloride 93, BUN 53, creatinine 6.3 And total bilirubin trended up to 2.3. The patient will undergo regularly scheduled hemodialysis session today as per TTS schedule. Exam Vital Signs Temp Pulse Resp BP Pulse Ox O2 Del Method O2 Flow Rate 98.6 F 68 19 130/64 94 L Room Air 2 08/11/24 08:00 08/11/24 08:28 08/11/24 08:00 08/11/24 08:28 08/11/24 08:00 08/11/24 08:00 08/10/24 16:49 FiO2 2 08/08/24 20:00 Narrative Exam General: No acute distress, Alert and Oriented x 3 HEENT: Moist mucous membranes, oropharynx clear Neck: Supple, No masses, No JVD CVS: S1S2 Regular rate and rhythm, No murmurs, rubs or gallops Lungs: Clear to auscultation with no accessory use, no wheeze no rhonchi Abd: Soft, NT/ND, +BS, no organomegaly Ext: 2+ BL LL pitting edema, right lower leg erythema, peripheral arteries barely palpable on bilateral lower limb extremities Skin: No rash Psych: Appropriate mood and affect Objective Labs 08/12/24 05:22 08/11/24 05:32 Labs: Laboratory Results - last 24 hr 08/10/24 08/11/24 06:05 05:32 WBC 15.1 H RBC 3.61 L Hgb 11.5 L Hct 34.2 L MCV 95 MCH 31.9 MCHC 33.6 RDW Std Deviation 52.4 H Plt Count 80 L Neut % (Auto) 83 H Lymph % (Auto) 7 L Humphreys % (Auto) 8 Eos % (Auto) 0 Baso % (Auto) 1 Neut # (Auto) 12.6 H Lymph # (Auto) 1.0 Humphreys # (Auto) 1.2 H Eos # (Auto) 0.0 Baso # (Auto) 0.1 Immature Gran # (Auto) 0.17 H Absolute Nucleated RBC 0.02 H Immature Gran % 1 H Nucleated RBC % 0 Sodium 131 L Potassium 3.8 Chloride 93 L Carbon Dioxide 27.2 Anion Gap 11 BUN 53 H Creatinine 6.3 H* D Estim Creat Clear Calc 9.4 L eGFR 7 L* BUN/Creatinine Ratio 8 L Glucose [address] Glu mg/dL 157 H Hemoglobin A1c 7.1 H Calculated Osmolality 279 Calcium 8.8 Corrected Calcium 9.4 Phosphorus 3.3 Magnesium 2.0 Total Bilirubin 2.3 H D AST 32 ALT 26 Alkaline Phosphatase 71 D Total Protein 6.3 Albumin 3.2 L D Globulin 3.1 Albumin/Globulin Ratio 1.0 L Random Vancomycin 18.4 ABG Interpretation ABG results: 08/08/24 01:28 ABG pH 7.51 H ABG pCO2 34 ABG pO2 108 ABG HCO3 27 H ABG O2 Saturation 99 H ABG Base Excess 4 H Quality Measures Quality Measures sepsis Current suspected stage: ruled out Possible source: skin/soft tissue Blood cultures ordered: yes Antibiotic ordered: Yes Assessment & Plan Assessment Current Active Medications: Generic Name Dose Route Start Last Admin Trade Name Freq PRN Reason Stop Dose Admin Acetaminophen 650 mg 08/08/24 03:24 08/10/24 04:10 Acetaminophen 325 Mg Tablet PO 09/07/24 03:23 650 mg Q6H PRN Administration Fever >100.3 or Pain 1-3 Dextrose 25 ml 08/08/24 04:55 Dextrose 50%-Water Inj 50 Ml Syringe IV 09/07/24 04:54 Q15MIN PRN BG 50-70 responsive npo pt Dextrose 50 ml 08/08/24 04:55 Dextrose 50%-Water Inj 50 Ml Syringe IV 09/07/24 04:54 Q15MIN PRN BG <50 OR BG <70 & pt unresponsive Piperacillin/Tazobactam/Dextrose 50 mls @ 12.5 mls/hr 08/08/24 09:00 08/11/24 08:29 Zosyn IV 08/15/24 08:59 12.5 mls/hr Q12HR LIU Administration Albumin Human 25 gm in 100 mls @ 100 mls/hr 08/09/24 21:00 08/11/24 08:29 Albuminar-25 Ivpb IV 08/12/24 20:59 100 mls/hr BID LIU Administration Vancomycin/Sodium Chloride 100 mls @ 120 mls/hr 08/11/24 10:00 Vancomycin/Ns 500 Mg Ivpb IV 08/11/24 10:49 X1 ONE Metoclopramide HCl 10 mg 08/08/24 03:24 Metoclopramide 5 Mg Tablet PO 09/07/24 03:23 Q6H PRN NAUSEA OR VOMITING Midodrine 10 mg 08/09/24 21:00 08/11/24 08:28 Midodrine 5 Mg Tablet PO 09/08/24 20:59 10 mg BID LIU Administration Oxycodone/Acetaminophen 1 tab 08/08/24 03:24 08/08/24 13:58 Oxycodone/Apap 5/325 Tablet PO 08/13/24 03:23 1 tab Q6H PRN Administration PAIN SCALE 4-10(Mod-Sev Pharmacy Consult 1 each 08/08/24 12:15 Vancomycin Pharmacy To Dose 1 Each Each IV 09/07/24 12:14 QDAY PRN PROTOCOL Plan The patient is a 54-year-old female with significant past medical history of ESRD 2/2 hypertension and type 2 diabetes mellitus presented to ED with chief complaint of altered mental status was found to have severe right leg cellulitis. Nephrology consultation was done for further management of ESRD and hemodialysis. #ESRD secondary to hypertensive/diabetic nephropathy Patient seems to be on volume overloaded status, with anasarca -Will get 1 session of hemodialysis today as per TTS schedule. -We will continue with regularly scheduled hemodialysis session on TTS #Anemia: DDx: More likely dilutional in the setting of volume overload, versus less likely anemia of chronic disease secondary to ESRD Hemoglobin seems to be stable once he is euvolemic, and seems to be anemic when she is volume overload. -Continue to monitor hemoglobin daily #Sepsis secondary to right leg cellulitis Patient was started on antibiotics-on Vanco, Zosyn. Still significant erythema noted. Blood cultures so far negative. #Hypotension, improved ? ? ?Likely in the setting of underlying cellulitis. Echocardiogram showed normal ejection fraction. -Continue with midodrine 10 mg twice daily, may increase up to 10 mg 3 times daily if blood pressure remains soft #Diabetes mellitus type II -Accu-Cheks, sliding scale, consistent carb diet #Possible cirrhosis As revealed by abdomen/pelvis CT -As per primary team #PAD -As per primary team Thank you for allowing nephrology team to be a part of patient care. The patient's management plan was discussed with my attending physician MD Ajit Bailey MD, PGY2 Attending Provider Attestation/Addendum Patient seen and examined with resident physician Dr. Wilkerson. Note reviewed, agree with findings and recommendations. patient currently seen on dialysis. Tolerating dialysis without any problems. Hemodialysis for 3 hours, 2K, ultrafiltration 2-3 L, Epogen 6000, no heparin ordered. Plan of care discussed with the dialysis nurse. Please see dialysis flowsheet for further details. Continue with broad-spectrum antibiotics for right lower extremity cellulitis.
--- NOTE | 2024-08-11 09:17 | PC.SS ---
Late note 08-10-24: SS met with patient regarding d/c plan.? Pt is alert/oriented.? Pt was admitted for Sepsis.? Pt confirmed demographic and contact information is correct on facesheet.? Pt resides with her son.? Pt ambulates independently without assistance or DME.? Pt is ok with all ADLs.? Pt does not utilizes O2 at home.? Pt is established with [facility].? SS spoke to Mary Carmen at [facility] and confirmed patient's chair time is T, Th, & Sat at 10:30am and family provides transportation.? Pt named her son, Slick Aguilar medical decision maker if she is unable.? Patient?s choice is to return home upon d/c.? SS has also spoken to dtr, in law Husam Blood who has confirmed family will provide transportation at d/c. D/C plan:? Return home Next of Kin:? Lisa Aguilar, son, phone# [phone] PCP:? [facility] Address:? Correct on facesheet
[2024-08-11] MEDS: VANCOMYCIN/NS 500 MG IVPB 100 ML 120 MG IV (10:02)
--- NOTE | 2024-08-11 11:47 | ESPR_ITS ---
<Statement entered by Db Iqbal MD - 08/11/24 16:06> Agree with plan and examination finding on the note below. Patient seen and examined at bedside today. Labs and imaging reviewed. Patient care discussed with my attending and co-resident . Documentation for date of: 08/11/24 Subjective Subjective Interval history: Patient was seen and examined at bedside this AM. No acute exents overnight. Patient tolerating diet, adequate urine output and mentation is at baseline. Patient currently very somnolent due to not getting enough sleep last night. Patient is scheduled for hemodialysis today. 08/08/2024 blood culture NBG x 48 hours 08/10/2024 blood cultures NBG x 24 hours So far blood cultures has been negative and low suspicion for MRSA. Will discontinue Zosyn and vancomycin and start patient on cefazolin Lower limb Doppler ultrasound ruled out DVT B/L lower limb Doppler arterial ultrasound revealing bilateral PAD with send the right lower extremity Exam Vital Signs Temp Pulse Resp BP Pulse Ox O2 Del Method O2 Flow Rate 98.6 F 68 19 130/64 94 L Room Air 2 08/11/24 08:00 08/11/24 08:28 08/11/24 08:00 08/11/24 08:28 08/11/24 08:00 08/11/24 08:00 08/10/24 16:49 FiO2 2 08/08/24 20:00 Narrative Exam Constitutional Alert, oriented x 3 and comfortable. Middle-age female, appears much older than her age. HEENT Vision grossly intact. Patent nares. Trachea midline Respiratory Chest normal on inspection and clear auscultation bilaterally Cardiovascular S1 and S2 audible, RRR. No murmurs carotid bruit. No gross JVD. Abdominal Soft and non tender to palpation in all quadrants. BS + Genitourinary No bladder tenderness, no flank pain. Normal to palpation Musculoskeletal Extremities tone within normal limits. 1+ right lower extremity pitting edema up to knee as well as erythematous up to knee?improving Neurological CN II - XII grossly intact. Extremity motor and sensation grossly intact. Skin Warm, dry and intact. Left brachiobasilic fistula covered in bandage, clean. Trill felt Psychiatric Patient has flat affect, is cooperative Objective Labs 08/11/24 05:32 08/11/24 05:32 Labs: Laboratory Results - last 24 hr 08/10/24 08/11/24 06:05 05:32 WBC 15.1 H RBC 3.61 L Hgb 11.5 L Hct 34.2 L MCV 95 MCH 31.9 MCHC 33.6 RDW Std Deviation 52.4 H Plt Count 80 L Neut % (Auto) 83 H Lymph % (Auto) 7 L Reagan % (Auto) 8 Eos % (Auto) 0 Baso % (Auto) 1 Neut # (Auto) 12.6 H Lymph # (Auto) 1.0 Reagan # (Auto) 1.2 H Eos # (Auto) 0.0 Baso # (Auto) 0.1 Immature Gran # (Auto) 0.17 H Absolute Nucleated RBC 0.02 H Immature Gran % 1 H Nucleated RBC % 0 Sodium 131 L Potassium 3.8 Chloride 93 L Carbon Dioxide 27.2 Anion Gap 11 BUN 53 H Creatinine 6.3 H* D Estim Creat Clear Calc 9.4 L eGFR 7 L* BUN/Creatinine Ratio 8 L Glucose [address] Glu mg/dL 157 H Hemoglobin A1c 7.1 H Calculated Osmolality 279 Calcium 8.8 Corrected Calcium 9.4 Phosphorus 3.3 Magnesium 2.0 Total Bilirubin 2.3 H D AST 32 ALT 26 Alkaline Phosphatase 71 D Total Protein 6.3 Albumin 3.2 L D Globulin 3.1 Albumin/Globulin Ratio 1.0 L Random Vancomycin 18.4 ABG Interpretation ABG results: 08/08/24 01:28 ABG pH 7.51 H ABG pCO2 34 ABG pO2 108 ABG HCO3 27 H ABG O2 Saturation 99 H ABG Base Excess 4 H Quality Measures Quality Measures sepsis Current suspected stage: sepsis Possible source: skin/soft tissue Blood cultures ordered: yes Antibiotic ordered: Yes Assessment & Plan Assessment Current Active Medications: Generic Name Dose Route Start Last Admin Trade Name Freq PRN Reason Stop Dose Admin Acetaminophen 650 mg 08/08/24 03:24 08/10/24 04:10 Acetaminophen 325 Mg Tablet PO 09/07/24 03:23 650 mg Q6H PRN Administration Fever >100.3 or Pain 1-3 Dextrose 25 ml 08/08/24 04:55 Dextrose 50%-Water Inj 50 Ml Syringe IV 09/07/24 04:54 Q15MIN PRN BG 50-70 responsive npo pt Dextrose 50 ml 08/08/24 04:55 Dextrose 50%-Water Inj 50 Ml Syringe IV 09/07/24 04:54 Q15MIN PRN BG <50 OR BG <70 & pt unresponsive Piperacillin/Tazobactam/Dextrose 50 mls @ 12.5 mls/hr 08/08/24 09:00 08/11/24 08:29 Zosyn IV 08/15/24 08:59 12.5 mls/hr Q12HR LIU Administration Albumin Human 25 gm in 100 mls @ 100 mls/hr 08/09/24 21:00 08/11/24 08:29 Albuminar-25 Ivpb IV 08/12/24 20:59 100 mls/hr BID LIU Administration Metoclopramide HCl 10 mg 08/08/24 03:24 Metoclopramide 5 Mg Tablet PO 09/07/24 03:23 Q6H PRN NAUSEA OR VOMITING Midodrine 10 mg 08/09/24 21:00 08/11/24 08:28 Midodrine 5 Mg Tablet PO 09/08/24 20:59 10 mg BID LIU Administration Oxycodone/Acetaminophen 1 tab 08/08/24 03:24 08/08/24 13:58 Oxycodone/Apap 5/325 Tablet PO 08/13/24 03:23 1 tab Q6H PRN Administration PAIN SCALE 4-10(Mod-Sev Pharmacy Consult 1 each 08/08/24 12:15 Vancomycin Pharmacy To Dose 1 Each Each IV 09/07/24 12:14 QDAY PRN PROTOCOL Plan Patient is a 54-year-old female with HTN, ESRD on HD MWF, T2DM who was brought to the ED by her son due to altered mental status. Additionally, son states that patient had severe generalized weakness and needed to be carried to her bedroom. Son states that patient's legs have gotten swollen and red. Patient will be admitted for sepsis secondary to RLE cellulitis. # Sepsis, secondary to bilateral lower extremity cellulitis?resolving # DVT ruled out # Peripheral arterial disease Patient meets SIRS criteria + source; LA 4.1, Pro-Antwan 120 although may be falsely elevated in setting of ESRD 08/08/2024 blood culture NBG x 48 hours 08/10/2024 blood cultures NBG x 24 hours MRSA nasal screen negative Patient received 3 days of Zosyn 3.375 g IV and vancomycin 1 g IV from [08/08 - 08/11] Bilateral lower extremity arterial duplex completed on 08/10/2024 findings include: Bilateral peripheral obstructive arterial disease, most severe involving right lower extremity. Bilateral lower extremity venous duplex ultrasound completed on 08/10/2024 ruled out DVT. So far blood cultures has been negative and low suspicion for MRSA. Will discontinue Zosyn and vancomycin and start patient on cefazolin Plan: - Discontinued Zosyn 3.375 g IV twice daily [08/08?08/11] ? Discontinued vancomycin 1 g IV daily started on [08/08?08/11] ? Started on cefazolin 2 g IV after dialysis sessions for a total of 6 doses for treatment of cellulitis #ESRD on HD, TTS # Chronic systolic heart failure with preserved ejection fraction [55%] BNP >3280 with edema noted Transthoracic echocardiogram completed on 08/08/2024 findings include: Normal LV size. Hypokinetic anterior septal wall motion. Estimated EF 55 %. RV is mildly dilated with moderately decreased systolic function. Estimated RVSP, 47mmHg. RAP 15. Mild MR. Moderate TR. Last HD session on 08/10/2024 Plan: ?For HD today as per nephrology and then to continue with her regular scheduled Saturday, , Saturday. #Thrombocytopenia On admission plt 151 ---> 96 ---> 80 Etiology: ESRD, heparin use 4 HTS score 1 point; low probability of heparin-induced thrombocytopenia Plan: ? Will hold heparin for now in light of thrombocytopenia. #Acute metabolic encephalopathy- improving Likely secondary to sepsis from cellulitis and/or Tamiflu administration. Patient given Tamiflu 75mg BID on 08/02/24, which was not renally dosed. Head CT negative for hemorrhage. Per son, patient is not back to her baseline, as she generally is very talkative and is A&O x 3. #Influenza B+ Tested postive on 08/02/24. Unsure if patient took dose BID since 08/02/24. Gave a x1 order of Tamiflu 30mg #Abdominal pain?resolved #IBS?chronic Admission tender to palpation in the abdomen Patient takes medications for IBS #NSTEMI, likely type II Denies any chest pain at this time; likely secondary to sepsis Troponin 0.553, continue to trend until delta noted # Mild transaminitis?resolved # Hyperbilirubinemia T. bili 1.6 ---> 2.3, AST 138 ---> 32, ALT 26 and ALP 71 # Essential HTN Patient takes Lasix at home BP stable at this time, will hold off on antihypertensives for now #History of T2DM 08/10/2019 HbA1c 7.1% Blood glucose range controlled between 140s-180s on diet Plan: ? Continue low consistent carb diet Health maintenance: Disposition: Pending 48-hour repeat of repeat blood culture. Likely anticipate discharge within next 24-48 hours to complete course of antibiotics for cellulitis during outpatient dialysis sessions Diet: Renal Lines: pIVs GI Prophylaxis: None Thrombo Prophylaxis: None Code status: FULL CODE Plan of care discussed with Attending Dr. Membreno and PGY3 Dr. Farida Alvarado MD PGY 1 Attending Provider Attestation/Addendum I have discussed and was present for the essential components of the history, physical examination, diagnosis, and treatment plan with the resident. I agree with the patient's care as documented by the resident and amended herein by me. Jay Membreno, DO. Patient seen and evaluated this AM. No acute events overnight, vital signs stable, patient afebrile, WBC downtrending to 15 today, platelets also down to 80 today, we monitor closely and discontinued her heparin, unlikely HIT will but will continue to monitor closely. BUN 53, next hemodialysis session tomorrow, will continue IV antibiotics for now, blood cultures demonstrating NGTD, cellulitis appears to be improving however still quite erythematous on her right ankle. Will continue to monitor closely, possible discharge in 1 to 2 days pending improvement Although this document has been carefully reviewed, there may still be some phonetic and other typographical errors. These errors are purely grammatical due to imperfections in the software program and should not be construed in any way to compromise the substance of the patient's medical care during this visit.
[2024-08-11 15:20] LABS: Hepatitis A Antibody IgM Non Reactive (Non React); Hepatitis B Core Antibody IgM Non Reactive (Non React); Hepatitis B Surface Ab Reactive (Immune) (Immune); Hepatitis B Surface Antigen Non Reactive (Non React); Hepatitis C Antibody Non Reactive (Non React)
[2024-08-11] MEDS: ceFAZolin/D5W 2 GM IV 2 GM/100 ML BAG IV (17:08)
--- NOTE | 2024-08-11 17:12 | PC.NURSE ---
Dialysis completed for 3 hrs, tolerated well.? Pt awake, A/O x3, no complaint of pain.? Respiration even and unlabored? O2 sat 95% room air.? Able to removed 1900 ml of fluid net.? Post tx BP 149/74, HR 87, Temp 97.8.?? Pt back in her room.? Call light within reached. Pressure dressing on left upper arm AV graft clean/dry/intact. No bleeding.? Pressure dressing to be remove around 1900.? Report given to Kimber SELLERS
[2024-08-11] MEDS: ACETAMINOPHEN 325 MG TABLET 650 MG PO (20:59)
[2024-08-11] MEDS: QUEtiapine FUMARATE 25 MG TABLET PO (23:56)
[2024-08-12] VITALS (11 sets, daily range): BP systolic 114–148; BP diastolic 54–86; PULSE 71–88; RESP 18–23; TEMP 36.1–37.3; O2SAT 94–99; BMI 32.5
[2024-08-12 06:17] LABS: Basophils # (Auto) 0.1 Thou/mm3 (0.0-0.2); Basophils % (Auto) 1 % (0-2.5); Eosinophils % (Auto) 0 % (0-10); Hematocrit 31.6 % (36.0-46.0); Hemoglobin 10.6 g/dL (12.0-16.0); Immature Granulocytes % (Auto) 2 % (0-0); Immature Granulocytes Auto 0.22 Thou/mm3 (0.00-0.00); Lymphocytes % (Auto) 7 % (10-50); Mean Corpuscular HGB Conc 33.5 g/dl (31.0-37.0); Mean Corpuscular Hemoglobin 31.6 pg (25.0-35.0); Mean Corpuscular Volume 94 fL (80-100); Monocytes # (Auto) 1.3 Thou/mm3 (0.0-0.8); Monocytes % (Auto) 9 % (0-12); Neutrophils # (Auto) 11.5 Thou/mm3 (1.8-7.7); Neutrophils % (Auto) 81 % (37-80); Nucleated Red Blood Cell # 0.04 Thou/mm3 (0.00-0.00); Nucleated Red Blood Cell % 0 /100 WBC (0); Platelet Count 85 Thou/mm3 (140-440); RDW Standard Deviation 52.6 fL (36.4-46.3); Red Blood Count 3.35 Miln/mm3 (4.00-5.20); White Blood Count 14.2 Thou/mm3 (3.6-11.0)
[2024-08-12 07:06] LABS: Alanine Aminotransferase 15 U/L (10-49); Albumin, Serum 3.3 gm/dL (3.5-5.0); Albumin/Globulin Ratio 1.2 (1.2-2.2); Alkaline Phosphatase 71 U/L (46-116); Anion Gap 13 (7-16); Aspartate Amino Transferase 22 U/L (0-34); BUN/Creatinine Ratio 8 Ratio (12-20); Bilirubin,Total 2.3 mg/dL (0.3-1.2); Blood Urea Nitrogen 36 mg/dL (9-23); Calcium 8.5 mg/dL (8.3-10.6); Calcium (Corrected) 9.1 mg/dL (8.5-10.1); Carbon Dioxide 27.5 mMol/L (20.0-31.0); Chloride 94 mMol/L (98-107); Creatinine (Component) 4.7 mg/dL (0.6-1.3); Estimated Creatinine Clearance 12.2 mL/min (>60); Globulin 2.8 gm/dL (2.3-3.5); Glucose 162 mg/dL (74-106); Osmolality,Calculated 280 (275-295); Phosphorous 2.7 mg/dL (2.4-5.1); Potassium 3.2 mMol/L (3.4-5.1); Sodium 134 mMol/L (136-145); Total Protein 6.1 gm/dL (5.7-8.2); eGFR 11 See Note
--- NOTE | 2024-08-12 08:50 | PD.RESPRO ---
Documentation for date of: 08/12/24 Subjective Subjective Interval history: Ms. Aguilar is a 54-year-old lady with extensive past medical history of uncontrolled hypertension and diabetes for many years ended up on dialysis 2 years ago under my care and has been coming to dialysis treatments on TTS (noncompliant with treatments due to loose stools) was admitted to the emergency department brought by the son with generalized weakness and significant right leg edema which is going on for the last 3 days. Patient apparently came to the ED last week and diagnosed with flu and was given Tamiflu. I saw her at the dialysis unit on and emphasize compliance. Her son is also on dialysis and was recently switched from MWF to TTS sessions. Hope she will be compliant. In the emergency department as she was having fever of 105, WBC 10.2, pH 7.51, lactic acid 4.1, LFTs were elevated, LDH 594, creatinine 6.9, BNP greater than 3280, Pro-Antwan 120, troponin 0.5. Urinalysis shows blood and protein with glucose. Chest x-ray showed fluid overload, head CT negative. Abdominal CT showed liver cirrhosis, pulmonary edema Patient denies any chest pain, nausea/vomiting, recent trauma or bug bite. Patient does walk with shoes and socks at home. Meds: Lomotil as needed, Sensipar 30 mg daily, Xphozah 30 mg, Lasix 40 mg daily, Cincalet, sevelamer carbonate 3 times daily Social history: Patient denies any smoking, alcohol use or illicit drug use. Patient will be admitted for sepsis secondary to RLE cellulitis. Renal consultation requested for need for dialysis. Patient currently seen on dialysis. 08/09/2024 patient currently seen in telemetry. Still having some pain in the right lower extremities at the site of extensive cellulitis. Edema tad better after dialysis although erythema still persist. Currently on Zosyn, Vanco. Denies any chest pain. Blood pressure 99/50, heart rate 82. WBC 13.7, hemoglobin 12.1. Platelets 128. Sodium 138, potassium 3.6, bicarbonate 31.2, BUN 30, creatinine 4.9, calcium 8.8, AST 111, total bilirubin 1.5, troponin 0.4, albumin 2.4, Echocardiogram showed ejection fraction 55%. 08/10/2024: The patient was examined and interviewed at the bedside this morning. She still has anasarca, extensive cellulitis of right leg, and was saturating 97% on 1 L NC. Other vitals fairly stable, CR trended up to 17.3, chemistry panel significant for ESRD. The patient had 1 hemodialysis on today, as she still seems to be on volume overload. 08/11/2024: The patient was examined and interviewed at the bedside this morning. She reported doing well. Physical examination was significant for 2-3+ peripheral pitting edema. Still has cellulitis of right leg with erythema. Labs significant for decreasing WBC to 15.1, hemoglobin 11.5 likely dilutional, sodium 131, chloride 93, BUN 53, creatinine 6.3 And total bilirubin trended up to 2.3. The patient will undergo regularly scheduled hemodialysis session today as per TTS schedule. 08/12/2024: The patient was interviewed and examined at the bedside this morning. She reported having diarrhea, which is her chronic problem, and due to which she misses her dialysis frequently. She has not been able to get outpatient GI appointment for a long time. Her vitals are fairly stable count trended down to 14.2, sodium 134, potassium 3.2 was repleted with 20 mEq p.o. KCl, UN 36 and creatinine 4.7 with EGFR 11 consistent with ESRD. And her total bilirubin has been stable at 2.3. The patient has got hemodialysis [id number] in last 2 days. The patient will get another session of hemodialysis tomorrow morning again. Exam Vital Signs Temp Pulse Resp BP Pulse Ox O2 Del Method O2 Flow Rate 97.4 F 74 23 H 142/71 H 95 Room Air 2 08/12/24 08:00 08/12/24 08:00 08/12/24 08:00 08/12/24 08:00 08/12/24 08:00 08/12/24 08:00 08/11/24 09:00 FiO2 2 08/08/24 20:00 Narrative Exam General: No acute distress, Alert and Oriented x 3 HEENT: Moist mucous membranes, oropharynx clear Neck: Supple, No masses, No JVD CVS: S1S2 Regular rate and rhythm, No murmurs, rubs or gallops Lungs: Clear to auscultation with no accessory use, no wheeze no rhonchi Abd: Soft, NT/ND, +BS, no organomegaly Ext: 2+ BL LL pitting edema, right lower leg erythema, peripheral arteries barely palpable on bilateral lower limb extremities Skin: No rash Psych: Mildly depressed Objective Labs 08/13/24 04:45 08/13/24 04:45 Labs: Laboratory Results - last 24 hr 08/11/24 08/12/24 05:32 05:22 WBC 14.2 H RBC 3.35 L Hgb 10.6 L Hct 31.6 L MCV 94 MCH 31.6 MCHC 33.5 RDW Std Deviation 52.6 H Plt Count 85 L Neut % (Auto) 81 H Lymph % (Auto) 7 L [place] % (Auto) 9 Eos % (Auto) 0 Baso % (Auto) 1 Neut # (Auto) 11.5 H Lymph # (Auto) 1.0 [place] # (Auto) 1.3 H Eos # (Auto) 0.0 Baso # (Auto) 0.1 Immature Gran # (Auto) 0.22 H Absolute Nucleated RBC 0.04 H Immature Gran % 2 H Nucleated RBC % 0 Sodium 134 L Potassium 3.2 L D Chloride 94 L Carbon Dioxide 27.5 Anion Gap 13 BUN 36 H Creatinine 4.7 H* D Estim Creat Clear Calc 12.2 L eGFR 11 L* BUN/Creatinine Ratio 8 L Glucose 162 H Calculated Osmolality 280 Calcium 8.5 Corrected Calcium 9.1 Phosphorus 2.7 Magnesium 2.0 Total Bilirubin 2.3 H AST 22 ALT 15 Alkaline Phosphatase 71 Total Protein 6.1 Albumin 3.3 L Globulin 2.8 Albumin/Globulin Ratio 1.2 Hepatitis A IgM Ab Non Reactive Hep Bs Antigen Non Reactive Hep Bs Antibody Reactive (Immune) Hep B Core IgM Ab Non Reactive Hepatitis C Antibody Non Reactive ABG Interpretation ABG results: 08/08/24 01:28 ABG pH 7.51 H ABG pCO2 34 ABG pO2 108 ABG HCO3 27 H ABG O2 Saturation 99 H ABG Base Excess 4 H Quality Measures Quality Measures sepsis Current suspected stage: ruled out Possible source: skin/soft tissue Blood cultures ordered: yes Antibiotic ordered: Yes Assessment & Plan Assessment Current Active Medications: Generic Name Dose Route Start Last Admin Trade Name Freq PRN Reason Stop Dose Admin Acetaminophen 650 mg 08/08/24 03:24 08/11/24 20:59 Acetaminophen 325 Mg Tablet PO 09/07/24 03:23 650 mg Q6H PRN Administration Fever >100.3 or Pain 1-3 Dextrose 25 ml 08/08/24 04:55 Dextrose 50%-Water Inj 50 Ml Syringe IV 09/07/24 04:54 Q15MIN PRN BG 50-70 responsive npo pt Dextrose 50 ml 08/08/24 04:55 Dextrose 50%-Water Inj 50 Ml Syringe IV 09/07/24 04:54 Q15MIN PRN BG <50 OR BG <70 & pt unresponsive Albumin Human 25 gm in 100 mls @ 100 mls/hr 08/09/24 21:00 08/11/24 21:00 Albuminar-25 Ivpb IV 08/12/24 20:59 100 mls/hr BID LIU Administration Cefazolin Sodium 2 gm in 100 mls @ 200 mls/hr 08/11/24 16:00 08/11/24 17:08 Ancef 2gm Ivpb IV 08/22/24 16:29 200 mls/hr TUTHSA@1600 LIU Administration Metoclopramide HCl 10 mg 08/08/24 03:24 Metoclopramide 5 Mg Tablet PO 09/07/24 03:23 Q6H PRN NAUSEA OR VOMITING Midodrine 10 mg 08/09/24 21:00 08/11/24 20:34 Midodrine 5 Mg Tablet PO 09/08/24 20:59 Not Given BID LIU Oxycodone/Acetaminophen 1 tab 08/08/24 03:24 08/08/24 13:58 Oxycodone/Apap 5/325 Tablet PO 08/13/24 03:23 1 tab Q6H PRN Administration PAIN SCALE 4-10(Mod-Sev Plan The patient is a 54-year-old female with significant past medical history of ESRD 2/2 hypertension and type 2 diabetes mellitus presented to ED with chief complaint of altered mental status was found to have severe right leg cellulitis. Nephrology consultation was done for further management of ESRD and hemodialysis. #ESRD secondary to hypertensive/diabetic nephropathy Patient seems to be on volume overloaded status, but there has been improvement on anasarca. -We will continue with regularly scheduled hemodialysis session on TTS #Anemia: DDx: More likely acute blood loss anemia as there has been significant drop in hemoglobin, and today morning this is 10.6, suggestive of possible GI bleed, and patient has not had a colonoscopy done, vs less likely dilutional in the setting of volume overload, versus less likely anemia of chronic disease secondary to ESRD, -May consider GI consultation #Acute on chronic diarrhea Patient has history of chronic diarrhea, and she has not been able to follow-up with GI for a long time. -May consider GI consultation #Sepsis secondary to right leg cellulitis, improved #Cellulitis of right leg Patient was started on antibiotics-on Vanco, Zosyn. Still significant erythema noted. Blood cultures so far negative. #Hypotension, improved ? ? ?Likely in the setting of underlying cellulitis. Echocardiogram showed normal ejection fraction. -Continue with midodrine 10 mg twice daily, may increase up to 10 mg 3 times daily if blood pressure remains soft #Diabetes mellitus type II -Accu-Cheks, sliding scale, consistent carb diet #Possible cirrhosis As revealed by abdomen/pelvis CT -As per primary team #PAD -As per primary team Thank you for allowing nephrology team to be a part of patient care. The patient's management plan was discussed with my attending physician MD Ajit Bailey MD, PGY2 Attending Provider Attestation/Addendum Patient seen and examined with resident physician Dr. Wilkerson. Note reviewed, agree with findings and recommendations. Next dialysis scheduled for tomorrow Continue with broad-spectrum antibiotics for right lower extremity cellulitis. Patient will benefit from colonoscopy due to chronic diarrhea and missing dialysis sessions. Spoke to primary care team. Dr. Villegas was consulted
[2024-08-12] MEDS: POTASSIUM CHLORIDE 10% 20 MEQ/15 ML UDC PO (08:55)
[2024-08-12] MEDS: ALBUMIN HUMAN 25% IVPB 25 GM/100 ML BTL IV (09:03)
--- NOTE | 2024-08-12 09:05 | ESPR_ITS ---
<Statement entered by Richard Rao MD - 08/12/24 17:05> Repeat blood culture negative ate 48 hours. Concern for colitis, GI Dr. Villegas consulted. Patient received x1 dose of lasix this a.m. I discussed with and supervised the manager of international physician involved in the care of this patient. Patient assessment and plan was discussed with entire medicine team, including my attending. I agree with the assessment and plan as documented by manager of international doctor. Patient care was discussed with my attending physician Dr. Temi Rao, PGY-2 Documentation for date of: 08/12/24 Subjective Subjective Interval history: Patient was seen and examined at bedside this AM. Patient had insomnia overnight and was given Seroquel 25 Mg x 1 Patient tolerating diet, adequate urine output and mentation is at baseline. Patient currently very somnolent due to not getting enough sleep last night, patient also complained of 4 episodes of diarrhea overnight 08/08/2024 blood culture NBG x 48 hours 08/10/2024 blood cultures NBG x 24 hours Patient will get 5 more doses of cefazolin 2G IV times during dialysis sessions Patient also has worsening lower extremity edema and pulmonary edema. Will give Lasix 40 Mg IV x 1 Exam Vital Signs Temp Pulse Resp BP Pulse Ox O2 Del Method O2 Flow Rate 97.4 F 74 23 H 142/71 H 95 Room Air 2 08/12/24 08:00 08/12/24 08:56 08/12/24 08:00 08/12/24 08:56 08/12/24 08:00 08/12/24 08:00 08/11/24 09:00 FiO2 2 08/08/24 20:00 Narrative Exam Constitutional Alert, oriented x 3 and comfortable. Middle-age female, appears much older than her age. HEENT Vision grossly intact. Patent nares. Trachea midline Respiratory Chest normal on inspection and crackles auscultated from mid to lower zones bilaterally Cardiovascular S1 and S2 audible, RRR. No murmurs carotid bruit. No gross JVD. Abdominal Soft and non tender to palpation in all quadrants. BS + Genitourinary No bladder tenderness, no flank pain. Normal to palpation Musculoskeletal Extremities tone within normal limits. 3+ bilateral lower extremity edema up to knees bilaterally. Erythematous right lower limb up to knee Neurological CN II - XII grossly intact. Extremity motor and sensation grossly intact. Skin Warm, dry and intact. Left brachiobasilic fistula covered in bandage, clean. Trill felt Psychiatric Patient has flat affect, is cooperative Objective Labs 08/12/24 05:22 08/12/24 05:22 Labs: Laboratory Results - last 24 hr 08/11/24 08/12/24 05:32 05:22 WBC 14.2 H RBC 3.35 L Hgb 10.6 L Hct 31.6 L MCV 94 MCH 31.6 MCHC 33.5 RDW Std Deviation 52.6 H Plt Count 85 L Neut % (Auto) 81 H Lymph % (Auto) 7 L [place] % (Auto) 9 Eos % (Auto) 0 Baso % (Auto) 1 Neut # (Auto) 11.5 H Lymph # (Auto) 1.0 [place] # (Auto) 1.3 H Eos # (Auto) 0.0 Baso # (Auto) 0.1 Immature Gran # (Auto) 0.22 H Absolute Nucleated RBC 0.04 H Immature Gran % 2 H Nucleated RBC % 0 Sodium 134 L Potassium 3.2 L D Chloride 94 L Carbon Dioxide 27.5 Anion Gap 13 BUN 36 H Creatinine 4.7 H* D Estim Creat Clear Calc 12.2 L eGFR 11 L* BUN/Creatinine Ratio 8 L Glucose 162 H Calculated Osmolality 280 Calcium 8.5 Corrected Calcium 9.1 Phosphorus 2.7 Magnesium 2.0 Total Bilirubin 2.3 H AST 22 ALT 15 Alkaline Phosphatase 71 Total Protein 6.1 Albumin 3.3 L Globulin 2.8 Albumin/Globulin Ratio 1.2 Hepatitis A IgM Ab Non Reactive Hep Bs Antigen Non Reactive Hep Bs Antibody Reactive (Immune) Hep B Core IgM Ab Non Reactive Hepatitis C Antibody Non Reactive ABG Interpretation ABG results: 08/08/24 01:28 ABG pH 7.51 H ABG pCO2 34 ABG pO2 108 ABG HCO3 27 H ABG O2 Saturation 99 H ABG Base Excess 4 H Quality Measures Quality Measures sepsis Current suspected stage: sepsis (resolving) Possible source: skin/soft tissue Blood cultures ordered: yes Antibiotic ordered: Yes Assessment & Plan Assessment Current Active Medications: Generic Name Dose Route Start Last Admin Trade Name Freq PRN Reason Stop Dose Admin Acetaminophen 650 mg 08/08/24 03:24 08/11/24 20:59 Acetaminophen 325 Mg Tablet PO 09/07/24 03:23 650 mg Q6H PRN Administration Fever >100.3 or Pain 1-3 Dextrose 25 ml 08/08/24 04:55 Dextrose 50%-Water Inj 50 Ml Syringe IV 09/07/24 04:54 Q15MIN PRN BG 50-70 responsive npo pt Dextrose 50 ml 08/08/24 04:55 Dextrose 50%-Water Inj 50 Ml Syringe IV 09/07/24 04:54 Q15MIN PRN BG <50 OR BG <70 & pt unresponsive Albumin Human 25 gm in 100 mls @ 100 mls/hr 08/09/24 21:00 08/12/24 09:03 Albuminar-25 Ivpb IV 08/12/24 20:59 100 mls/hr BID LIU Administration Cefazolin Sodium 2 gm in 100 mls @ 200 mls/hr 08/11/24 16:00 08/11/24 17:08 Ancef 2gm Ivpb IV 08/22/24 16:29 200 mls/hr TUTHSA@1600 LIU Administration Metoclopramide HCl 10 mg 08/08/24 03:24 Metoclopramide 5 Mg Tablet PO 09/07/24 03:23 Q6H PRN NAUSEA OR VOMITING Midodrine 10 mg 08/09/24 21:00 08/12/24 08:56 Midodrine 5 Mg Tablet PO 09/08/24 20:59 Not Given BID LIU Oxycodone/Acetaminophen 1 tab 08/08/24 03:24 08/08/24 13:58 Oxycodone/Apap 5/325 Tablet PO 08/13/24 03:23 1 tab Q6H PRN Administration PAIN SCALE 4-10(Mod-Sev Plan Patient is a 54-year-old female with HTN, ESRD on HD MWF, T2DM who was brought to the ED by her son due to altered mental status. Additionally, son states that patient had severe generalized weakness and needed to be carried to her bedroom. Son states that patient's legs have gotten swollen and red. Patient will be admitted for sepsis secondary to RLE cellulitis. # Sepsis, secondary to bilateral lower extremity cellulitis?resolving # DVT ruled out # Peripheral arterial disease Patient meets SIRS criteria + source; LA 4.1, Pro-Antwan 120 although may be falsely elevated in setting of ESRD 08/08/2024 blood culture NBG x 48 hours 08/10/2024 blood cultures NBG x 24 hours MRSA nasal screen negative Received 3 days of Zosyn 3.375 g IV twice daily from [08/08 - 08/11] Received 3 days of vancomycin 1 g IV daily from [08/08 - 08/11] Bilateral lower extremity arterial duplex completed on 08/10/2024 findings include: Bilateral peripheral obstructive arterial disease, most severe involving right lower extremity. Bilateral lower extremity venous duplex ultrasound completed on 08/10/2024 ruled out DVT. Plan: ? Cefazolin 2 g IV after dialysis sessions for a total of 6 doses for treatment of cellulitis, last dose on 08/22/2024 #Chronic diarrhea Patient endorses a 3-month history of chronic diarrhea which has led her to being noncompliant with her dialysis sessions. Even when she attends dialysis she usually cuts the sessions short due to diarrhea. DDx: Microscopic colitis, IBS, IBD Plan: ? GI, Dr. Villegas consulted. Appreciate recommendations #Insomnia Patient has history of altered mental status on admission. Please avoid antihistamines, benzos, antipsychotics. Plan: ? Will start patient on melatonin 9 Mg p.o. at bedtime #ESRD on HD, TTS # Chronic systolic heart failure with preserved ejection fraction [55%] BNP >3280 with edema noted Transthoracic echocardiogram completed on 08/08/2024 findings include: Normal LV size. Hypokinetic anterior septal wall motion. Estimated EF 55 %. RV is mildly dilated with moderately decreased systolic function. Estimated RVSP, 47mmHg. RAP 15. Mild MR. Moderate TR. Last HD session on 08/11/2024 Plan: ? Lasix 40 Mg IV x 1 ?For HD as per nephrology , her regular schedule Saturday, , Saturday. # Hypokalemia K3.2 Plan: ? KCl 20 mEq p.o. x 1 #Thrombocytopenia On admission plt 151 ---> 96 ---> 80 ---> 85 Etiology: ESRD, heparin use 4 HTS score 1 point; low probability of heparin-induced thrombocytopenia Plan: ? Will hold heparin for now in light of thrombocytopenia. #Acute metabolic encephalopathy- improving Likely secondary to sepsis from cellulitis and/or Tamiflu administration. Patient given Tamiflu 75mg BID on 08/02/24, which was not renally dosed. Head CT negative for hemorrhage. Per son, patient is not back to her baseline, as she generally is very talkative and is A&O x 3. #Influenza B+ Tested postive on 08/02/24. Unsure if patient took dose BID since 08/02/24. Gave a x1 order of Tamiflu 30mg #NSTEMI, likely type II Denies any chest pain at this time; likely secondary to sepsis Troponin 0.553, continue to trend until delta noted # Mild transaminitis?resolved # Hyperbilirubinemia T. bili 1.6 ---> 2.3, AST 138 ---> 32, ALT 26 and ALP 71 # Essential HTN Patient takes Lasix at home BP stable at this time, will hold off on antihypertensives for now #History of T2DM 08/10/2019 HbA1c 7.1% Blood glucose range controlled between 140s-180s on diet Plan: ? Continue low consistent carb diet Health maintenance: Disposition: Pending 48-hour repeat of repeat blood culture. GI consult for diarrhea Diet: Renal Lines: pIVs GI Prophylaxis: None Thrombo Prophylaxis: None Code status: FULL CODE Plan of care discussed with Attending Dr. Membreno and PGY2 Dr. Jalen Alvarado MD PGY 1 Attending Provider Attestation/Addendum I have discussed and was present for the essential components of the history, physical examination, diagnosis, and treatment plan with the resident. I agree with the patient's care as documented by the resident and amended herein by me. Jay Membreno DO. Patient seen and evaluated this AM. Gastroenterology consulted for persistent diarrhea at home, causing her to miss hemodialysis, we did request gastroenterology consult for further workup and evaluation. Will continue IV antibiotics for now, replete electrolytes continue follow-up with cultures and monitor closely. Although this document has been carefully reviewed, there may still be some phonetic and other typographical errors. These errors are purely grammatical due to imperfections in the software program and should not be construed in any way to compromise the substance of the patient's medical care during this visit.
--- NOTE | 2024-08-12 09:09 | PC.SS ---
Follow up note: Pt will d/c home today.
[2024-08-12] MEDS: FUROSEMIDE INJ 10 MG/ML 4ML VIAL 40 MG IVP (11:25)
--- NOTE | 2024-08-12 20:47 | PD.IMCONS ---
HPI Data of Consult Requesting Physician: Hernandez Membreno DO Primary Care Provider: Physician No Primary/Family Consult Narrative Reason for consult: Chronic persistent diarrhea History of present illness: She does 53 years old female who has a history of diabetes mellitus type 2 essential hypertension end-stage liver disease on hemodialysis MWF and questionable history of cirrhosis of the liver I been consulted for chronic persistent diarrhea going on for 3 months Patient also was found to be septic on admission with altered mental status cellulitis lower extremities and bilateral peripheral Doppler ultrasound shows obstructive arterial disease much more worse on the right lower extremity than the left lower extremity According the patient she wears diapers and cannot tell her many times she goes but easily it is 8-10 times and is nonbloody cc:: cc: Hernandez Membreno DO Review of Systems Review of Systems Systems Reviewed: All systems reviewed, normal except as documented Past Medical History Surgical History OTHER SURGICAL HX: As in the history of present illness Meds Home Medications and Allergies Allergies Allergy/AdvReac Type Severity Reaction Status Date / Time No Known Allergies Allergy Verified 04/25/23 13:53 Exam Vital Signs Temp Pulse Resp BP Pulse Ox O2 Del Method O2 Flow Rate 97.6 F 78 20 136/68 H 95 Room Air 2 08/12/24 16:00 08/12/24 16:00 08/12/24 16:00 08/12/24 16:00 08/12/24 16:00 08/12/24 16:00 08/11/24 09:00 FiO2 2 08/08/24 20:00 Constitutional Comments: Chronically ill-appearing Routine Respiratory Exam Comments: Normal to auscultation Routine Abdominal Exam Comments: Soft nontender Results Labs 08/12/24 05:22 08/12/24 05:22 Labs: Short CBC 08/12/24 Range/Units 05:22 WBC 14.2 H (3.6-11.0) Thou/mm3 Hgb 10.6 L (12.0-16.0) g/dL Hct 31.6 L (36.0-46.0) % Plt Count 85 L (140-440) Thou/mm3 BMP 08/12/24 05:22 Sodium 134 L Potassium 3.2 L D Chloride 94 L Carbon Dioxide 27.5 BUN 36 H Creatinine 4.7 H* D Glucose 162 H Calcium 8.5 Liver Function 08/12/24 Range/Units 05:22 Total Bilirubin 2.3 H (0.3-1.2) mg/dL AST 22 (0-34) U/L ALT 15 (10-49) U/L Alkaline Phosphatase 71 (46-116) U/L Albumin 3.3 L (3.5-5.0) gm/dL ABG Interpretation ABG results: 08/08/24 01:28 ABG pH 7.51 H ABG pCO2 34 ABG pO2 108 ABG HCO3 27 H ABG O2 Saturation 99 H ABG Base Excess 4 H Assessment and Plan Additional Assessment & Plan Additional Plan: # Chronic persistent diarrhea etiology uncertain Differential diagnosis autonomic neuropathy of the GI tract due to underlying longstanding diabetes mellitus Infectious enterocolitis versus inflammatory colitis Plan Complete stool analysis ANCA antibody Fiberoptic colonoscopy with biopsies for further evaluation Clear liquid diet GoLytely Once patient is cleared we will perform colonoscopy with biopsy with intubation of the terminal ileum Other medical problems include End-stage renal disease on hemodialysis MWF Diabetes mellitus type 2 Essential hypertension Peripheral vascular disease right lower extremity worse than left lower extremity Cellulitis lower extremity leading to sepsis on broad-spectrum antibiotics IV Zosyn and vancomycin and now currently on Ancef Thank you once again for the opportunity to participate in care of this patient
[2024-08-12] MEDS: MIDODRINE 5 MG TABLET 10 MG PO (21:47)
[2024-08-12] MEDS: NA SU/NAHCO3/KC/PEG (Golytely) 4,000 ML BTL 4000 ML PO (23:11)
[2024-08-13] VITALS (22 sets, daily range): BP systolic 121–155; BP diastolic 59–76; PULSE 64–121; RESP 16–24; TEMP 36–37.4; O2SAT 96–100; BMI 31.9
[2024-08-13 06:09] LABS: Basophils # (Auto) 0.1 Thou/mm3 (0.0-0.2); Eosinophils # (Auto) 0.1 Thou/mm3 (0.0-0.5); Immature Granulocytes % (Auto) 2 % (0-0); Lymphocytes % (Auto) 7 % (10-50); Mean Corpuscular Hemoglobin 31.9 pg (25.0-35.0); Monocytes % (Auto) 6 % (0-12); Neutrophils % (Auto) 84 % (37-80); Nucleated Red Blood Cell % 1 /100 WBC (0)
[2024-08-13 07:01] LABS: Alanine Aminotransferase < 7 U/L (10-49); Albumin, Serum 3.3 gm/dL (3.5-5.0); Albumin/Globulin Ratio 1.1 (1.2-2.2); Alkaline Phosphatase 79 U/L (46-116); Anion Gap 14 (7-16); Aspartate Amino Transferase 20 U/L (0-34); BUN/Creatinine Ratio 8 Ratio (12-20); Bilirubin,Total 1.7 mg/dL (0.3-1.2); Blood Urea Nitrogen 45 mg/dL (9-23); C-Reactive Protein 20.8 mg/dL (0.0-0.9); Calcium 8.9 mg/dL (8.3-10.6); Calcium (Corrected) 9.5 mg/dL (8.5-10.1); Carbon Dioxide 24.8 mMol/L (20.0-31.0); Chloride 93 mMol/L (98-107); Creatinine (Component) 5.4 mg/dL (0.6-1.3); Estimated Creatinine Clearance 10.6 mL/min (>60); Globulin 2.9 gm/dL (2.3-3.5); Glucose 132 mg/dL (74-106); Magnesium 2.1 mg/dL (1.6-2.6); Osmolality,Calculated 278 (275-295); Phosphorous 2.9 mg/dL (2.4-5.1); Potassium 3.6 mMol/L (3.4-5.1); Sodium 132 mMol/L (136-145); Total Protein 6.2 gm/dL (5.7-8.2); eGFR 9 See Note
[2024-08-13 08:05] LABS: Basophils % (Auto) 0 % (0-2.5); Eosinophils % (Auto) 0 % (0-10); Hematocrit 33.9 % (36.0-46.0); Hemoglobin 11.3 g/dL (12.0-16.0); Immature Granulocytes Auto 0.28 Thou/mm3 (0.00-0.00); Lymphocytes # (Auto) 1.2 Thou/mm3 (1.0-4.8); Mean Corpuscular HGB Conc 33.3 g/dl (31.0-37.0); Mean Corpuscular Volume 96 fL (80-100); Neutrophils # (Auto) 13.6 Thou/mm3 (1.8-7.7); RDW Standard Deviation 53.8 fL (36.4-46.3); Red Blood Count 3.54 Miln/mm3 (4.00-5.20); White Blood Count 16.2 Thou/mm3 (3.6-11.0)
[2024-08-13 08:15] LABS: Platelet Count 124 Thou/mm3 (140-440)
[2024-08-13 08:18] LABS: Sed Rate (ESR) 78 mm/hr (0-30)
--- NOTE | 2024-08-13 08:44 | PC.NURSE ---
Pt on dialysis at this time. Dr. Yap ordered to increase UF goal to 3L as tolerated. Order carried out. Pt no complaints. VS stable. Will monitor
--- NOTE | 2024-08-13 08:50 | XR_ITS ---
Examination: CT right lower extremity, without contrast. 2-D sagittal reconstructions. 2-D coronal reconstructions. 3-D reconstructions. Date and time of exam:August 13, 2024 1628 hrs. Indications: Right lower leg redness swelling and pain this week CTDI: vol (mGy):7.36 DLP: (mGycm):501 Technique: Multiple 1.25 mm axial sections of the right lower extremity without intravenous contrast have been obtained. 2-D sagittal and coronal reconstructions have been obtained. 3-D reconstructions have been obtained. Low dose protocols were performed. One or more of the following dose reduction techniques were used; automated exposure control, adjustment of the mA and/or KV according to patient size, use of iterative reconstruction technique. Findings: Significant edema in the subcutaneous fatty tissue surrounding the lower leg Moderate knee effusion No soft tissue abscess No cortical bone destruction involving the tibia and fibula or bones of the ankle or foot No fracture Soft tissue vascular calcification Impression: Severe edema in the subcutaneous fatty tissues surrounding the lower leg Negative for osteomyelitis Negative for soft tissue abscess Consider MRI lower leg without contrast follow-up as clinically warranted
--- NOTE | 2024-08-13 09:29 | ESPR_ITS ---
<Statement entered by Richard Rao MD - 08/13/24 20:31> Patient underwent dialysis with 3.4L fluid out. Right LE CT indicated severe edema in the subcutaneous fatty tissues surrounding the lower leg, negative for osteomyelitis and abscess.Patient to undergo colonoscopy today as there is concern for colitis. Stool studies sent out and pending. I discussed with and supervised the international marketing executive physician involved in the care of this patient. Patient assessment and plan was discussed with entire medicine team, including my attending. I agree with the assessment and plan as documented by international marketing executive doctor. Patient care was discussed with my attending physician Dr. Temi Rao, PGY-2 Documentation for date of: 08/13/24 Subjective Subjective Interval history: Patient was seen and examined at dialysis unit this AM. Patient had no overnight events. Patient tolerating on clear liquid diet and GoLytely bowel prep, adequate urine output and mentation is at baseline. Patient complains of pain to her right knee and diarrhea from the bowel prep. Will order CT right lower limb to rule out osteomyelitis. 08/08/2024 blood culture NBG x 48 hours 08/10/2024 blood cultures NBG x 48 hours Patient will get 4 more doses of cefazolin 2G IV times during dialysis sessions Exam Vital Signs Temp Pulse Resp BP Pulse Ox O2 Del Method O2 Flow Rate 97.4 F 64 20 132/68 H 97 Room Air 1 08/13/24 08:10 08/13/24 09:15 08/13/24 08:10 08/13/24 09:15 08/13/24 08:10 08/13/24 08:00 08/13/24 08:10 FiO2 2 08/13/24 08:10 Narrative Exam Constitutional Alert, oriented x 3 and comfortable. Middle-age female, appears much older than her age. HEENT Vision grossly intact. Patent nares. Trachea midline Respiratory Chest normal on inspection and crackles auscultated from mid to lower zones bilaterally Cardiovascular S1 and S2 audible, RRR. No murmurs carotid bruit. No gross JVD. Abdominal Soft and non tender to palpation in all quadrants. BS + Genitourinary No bladder tenderness, no flank pain. Normal to palpation Musculoskeletal Extremities tone within normal limits. 2+ bilateral lower extremity edema up to knees bilaterally. Erythematous right lower limb up to knee Neurological CN II - XII grossly intact. Extremity motor and sensation grossly intact. Skin Warm, dry and intact. Left brachiobasilic fistula. Trill felt Psychiatric Patient has flat affect, is cooperative Objective Labs 08/13/24 04:45 08/13/24 04:45 Labs: Laboratory Results - last 24 hr 08/13/24 04:45 WBC 16.2 H RBC 3.54 L Hgb 11.3 L Hct 33.9 L MCV 96 MCH 31.9 MCHC 33.3 RDW Std Deviation 53.8 H Plt Count 124 L D Neut % (Auto) 84 H Lymph % (Auto) 7 L [place] % (Auto) 6 Eos % (Auto) 0 Baso % (Auto) 0 Neut # (Auto) 13.6 H Lymph # (Auto) 1.2 [place] # (Auto) 1.0 H Eos # (Auto) 0.1 Baso # (Auto) 0.1 Immature Gran # (Auto) 0.28 H Absolute Nucleated RBC 0.10 H Immature Gran % 2 H Nucleated RBC % 1 H ESR 78 H Sodium 132 L Potassium 3.6 Chloride 93 L Carbon Dioxide 24.8 Anion Gap 14 BUN 45 H Creatinine 5.4 H* D Estim Creat Clear Calc 10.6 L eGFR 9 L* BUN/Creatinine Ratio 8 L Glucose 132 H Calculated Osmolality 278 Calcium 8.9 Corrected Calcium 9.5 Phosphorus 2.9 Magnesium 2.1 Total Bilirubin 1.7 H D AST 20 ALT < 7 L Alkaline Phosphatase 79 C-Reactive Prot, Quant 20.8 H Total Protein 6.2 Albumin 3.3 L Globulin 2.9 Albumin/Globulin Ratio 1.1 L ABG Interpretation ABG results: 08/08/24 01:28 ABG pH 7.51 H ABG pCO2 34 ABG pO2 108 ABG HCO3 27 H ABG O2 Saturation 99 H ABG Base Excess 4 H Quality Measures Quality Measures sepsis Current suspected stage: sepsis Possible source: skin/soft tissue Blood cultures ordered: yes Antibiotic ordered: Yes Assessment & Plan Assessment Current Active Medications: Generic Name Dose Route Start Last Admin Trade Name Freq PRN Reason Stop Dose Admin Acetaminophen 650 mg 08/08/24 03:24 08/11/24 20:59 Acetaminophen 325 Mg Tablet PO 09/07/24 03:23 650 mg Q6H PRN Administration Fever >100.3 or Pain 1-3 Dextrose 25 ml 08/08/24 04:55 Dextrose 50%-Water Inj 50 Ml Syringe IV 09/07/24 04:54 Q15MIN PRN BG 50-70 responsive npo pt Dextrose 50 ml 08/08/24 04:55 Dextrose 50%-Water Inj 50 Ml Syringe IV 09/07/24 04:54 Q15MIN PRN BG <50 OR BG <70 & pt unresponsive Cefazolin Sodium 2 gm in 100 mls @ 200 mls/hr 08/11/24 16:00 08/11/24 17:08 Ancef 2gm Ivpb IV 08/22/24 16:29 200 mls/hr [id number]@1600 LIU Administration Melatonin 9 mg 08/12/24 21:00 08/12/24 21:53 Melatonin 3 Mg Tablet PO 09/11/24 20:59 Not Given HS LIU Metoclopramide HCl 10 mg 08/08/24 03:24 Metoclopramide 5 Mg Tablet PO 09/07/24 03:23 Q6H PRN NAUSEA OR VOMITING Midodrine 10 mg 08/09/24 21:00 08/12/24 21:47 Midodrine 5 Mg Tablet PO 09/08/24 20:59 10 mg BID LIU Administration Plan Patient is a 54-year-old female with HTN, ESRD on HD MWF, T2DM who was brought to the ED by her son due to altered mental status. Additionally, son states that patient had severe generalized weakness and needed to be carried to her bedroom. Son states that patient's legs have gotten swollen and red. Patient will be admitted for sepsis secondary to RLE cellulitis. # Sepsis, secondary to bilateral lower extremity cellulitis?resolving # DVT ruled out # Peripheral arterial disease Patient meets SIRS criteria + source; LA 4.1, Pro-Antwan 120 although may be falsely elevated in setting of ESRD 08/08/2024 blood culture NBG x 48 hours 08/10/2024 blood cultures NBG x 24 hours MRSA nasal screen negative Received 3 days of Zosyn 3.375 g IV twice daily from [08/08 - 08/11] Received 3 days of vancomycin 1 g IV daily from [08/08 - 08/11] Bilateral lower extremity arterial duplex completed on 08/10/2024 findings include: Bilateral peripheral obstructive arterial disease, most severe involving right lower extremity. Bilateral lower extremity venous duplex ultrasound completed on 08/10/2024 ruled out DVT. Plan: ? Cefazolin 2 g IV after dialysis sessions for a total of 6 doses for treatment of cellulitis, last dose on 08/22/2024 #Rule out osteomyelitis Patient complains of right knee pain also. Cellulitis appears persistent Plan: ? Ordered CT right lower limb to assess for cellulitis and investigate right knee pain #Chronic diarrhea Patient endorses a 3-month history of chronic diarrhea which has led her to being noncompliant with her dialysis sessions. Even when she attends dialysis she usually cuts the sessions short due to diarrhea. DDx: Microscopic colitis, IBS, IBD Plan: - Pending ANCA, stool for calprotectin and WBCs ? Currently on GoLytely bowel prep, for colonoscopy once cleared as per GI recommendations. ? GI, Dr. Villegas consulted. Appreciate recommendations #Insomnia Patient has history of altered mental status on admission. Please avoid antihistamines, benzos, antipsychotics. Plan: ? Will start patient on melatonin 9 Mg p.o. at bedtime #ESRD on HD, TTS # Chronic systolic heart failure with preserved ejection fraction [55%] BNP >3280 with edema noted Transthoracic echocardiogram completed on 08/08/2024 findings include: Normal LV size. Hypokinetic anterior septal wall motion. Estimated EF 55 %. RV is mildly dilated with moderately decreased systolic function. Estimated RVSP, 47mmHg. RAP 15. Mild MR. Moderate TR. Last HD session on 08/11/2024 Plan: ? For HD as per nephrology, her regular schedule Saturday, , Saturday. # Hypokalemia?resolved K 3.6 #Thrombocytopenia On admission plt 151 ---> 96 ---> 80 ---> 85 --->124 Etiology: ESRD, heparin use 4 HTS score 1 point; low probability of heparin-induced thrombocytopenia Plan: ? Continue holding heparin for now in light of thrombocytopenia. #Acute metabolic encephalopathy- improving Likely secondary to sepsis from cellulitis and/or Tamiflu administration. Patient given Tamiflu 75mg BID on 08/02/24, which was not renally dosed. Head CT negative for hemorrhage. Per son, patient is not back to her baseline, as she generally is very talkative and is A&O x 3. #Influenza B+ Tested postive on 08/02/24. Unsure if patient took dose BID since 08/02/24. Gave a x1 order of Tamiflu 30mg #NSTEMI, likely type II Denies any chest pain at this time; likely secondary to sepsis Troponin 0.553, continue to trend until delta noted # Mild transaminitis?resolved # Hyperbilirubinemia T. bili 1.6 ---> 2.3, AST 138 ---> 32, ALT 26 and ALP 71 # Essential HTN Patient takes Lasix at home BP stable at this time, will hold off on antihypertensives for now #History of T2DM 08/10/2019 HbA1c 7.1% Blood glucose range controlled between 140s-180s on diet Plan: ? Continue low consistent carb diet Health maintenance: Disposition: Pending colonoscopy once bowel prep completed. Pending CT lower limb Diet: Renal Lines: pIVs GI Prophylaxis: None Thrombo Prophylaxis: None Code status: FULL CODE Plan of care discussed with Attending Dr. Membreno and PGY2 Dr. Jalen Alvarado MD PGY 1 Attending Provider Attestation/Addendum I have discussed and was present for the essential components of the history, physical examination, diagnosis, and treatment plan with the resident. I agree with the patient's care as documented by the resident and amended herein by me. Jay Membreno, DO. Patient seen and evaluated this AM., Vital signs stable, patient afebrile overnight, patient undergoing hemodialysis today, WBC slight uptrend to 16 today, hemoglobin stable at 11, platelets 124. Sodium 132, potassium 3.6, BUN 45 and creatinine 5.4 today. Will continue cefazolin for now and midodrine. CT of the patient's lower extremities also ordered considering she did complain of right knee pain today. GI also consulted who plans for colonoscopy considering copious amounts of diarrhea prior to admission causing her to miss dialysis. Nephrology consulted for routine hemodialysis, appreciate any other additional recommendations. Although this document has been carefully reviewed, there may still be some phonetic and other typographical errors. These errors are purely grammatical due to imperfections in the software program and should not be construed in any way to compromise the substance of the patient's medical care during this visit.
--- NOTE | 2024-08-13 09:32 | ESPR_ITS ---
Documentation for date of: 08/13/24 Subjective Subjective Interval history: Ms. Aguilar is a 54-year-old lady with extensive past medical history of uncontrolled hypertension and diabetes for many years ended up on dialysis 2 years ago under my care and has been coming to dialysis treatments on TTS (noncompliant with treatments due to loose stools) was admitted to the emergency department brought by the son with generalized weakness and significant right leg edema which is going on for the last 3 days. Patient apparently came to the ED last week and diagnosed with flu and was given Tamiflu. I saw her at the dialysis unit on and emphasize compliance. Her son is also on dialysis and was recently switched from MWF to TTS sessions. Hope she will be compliant. In the emergency department as she was having fever of 105, WBC 10.2, pH 7.51, lactic acid 4.1, LFTs were elevated, LDH 594, creatinine 6.9, BNP greater than 3280, Pro-Antwan 120, troponin 0.5. Urinalysis shows blood and protein with glucose. Chest x-ray showed fluid overload, head CT negative. Abdominal CT showed liver cirrhosis, pulmonary edema Patient denies any chest pain, nausea/vomiting, recent trauma or bug bite. Patient does walk with shoes and socks at home. Meds: Lomotil as needed, Sensipar 30 mg daily, Xphozah 30 mg, Lasix 40 mg daily, Cincalet, sevelamer carbonate 3 times daily Social history: Patient denies any smoking, alcohol use or illicit drug use. Patient will be admitted for sepsis secondary to RLE cellulitis. Renal consultation requested for need for dialysis. Patient currently seen on dialysis. 08/09/2024 patient currently seen in telemetry. Still having some pain in the right lower extremities at the site of extensive cellulitis. Edema tad better after dialysis although erythema still persist. Currently on Zosyn, Vanco. Denies any chest pain. Blood pressure 99/50, heart rate 82. WBC 13.7, hemoglobin 12.1. Platelets 128. Sodium 138, potassium 3.6, bicarbonate 31.2, BUN 30, creatinine 4.9, calcium 8.8, AST 111, total bilirubin 1.5, troponin 0.4, albumin 2.4, Echocardiogram showed ejection fraction 55%. 08/10/2024: The patient was examined and interviewed at the bedside this morning. She still has anasarca, extensive cellulitis of right leg, and was saturating 97% on 1 L NC. Other vitals fairly stable, CR trended up to 17.3, chemistry panel significant for ESRD. The patient had 1 hemodialysis on today, as she still seems to be on volume overload. 08/11/2024: The patient was examined and interviewed at the bedside this morning. She reported doing well. Physical examination was significant for 2-3+ peripheral pitting edema. Still has cellulitis of right leg with erythema. Labs significant for decreasing WBC to 15.1, hemoglobin 11.5 likely dilutional, sodium 131, chloride 93, BUN 53, creatinine 6.3 And total bilirubin trended up to 2.3. The patient will undergo regularly scheduled hemodialysis session today as per TTS schedule. 08/12/2024: The patient was interviewed and examined at the bedside this morning. She reported having diarrhea, which is her chronic problem, and due to which she misses her dialysis frequently. She has not been able to get outpatient GI appointment for a long time. Her vitals are fairly stable count trended down to 14.2, sodium 134, potassium 3.2 was repleted with 20 mEq p.o. KCl, UN 36 and creatinine 4.7 with EGFR 11 consistent with ESRD. And her total bilirubin has been stable at 2.3. The patient has got hemodialysis [id number] in last 2 days. The patient will get another session of hemodialysis tomorrow morning again. 08/13/2024: The patient was interviewed and examined at the bedside this morning. She was saturating 97% on room air. Her other vitals were fairly stable. Chemistry panel significant for sodium 132, chloride 93, BUN 45 and creatinine 5.4. Physical exam is still significant for bilateral lower limb edema and right leg cellulitis that has been improving. The patient will undergo regularly scheduled hemodialysis today. Exam Vital Signs Temp Pulse Resp BP Pulse Ox O2 Del Method O2 Flow Rate 97.4 F 66 20 142/69 H 97 Room Air 1 08/13/24 08:10 08/13/24 09:30 08/13/24 08:10 08/13/24 09:30 08/13/24 08:10 08/13/24 08:00 08/13/24 08:10 FiO2 2 08/13/24 08:10 Narrative Exam General: No acute distress, Alert and Oriented x 3 HEENT: Moist mucous membranes, oropharynx clear Neck: Supple, No masses, No JVD CVS: S1S2 Regular rate and rhythm, No murmurs, rubs or gallops Lungs: Clear to auscultation with no accessory use, no wheeze no rhonchi Abd: Soft, NT/ND, +BS, no organomegaly Ext: 2+ BL LL pitting edema, right lower leg erythema, peripheral arteries barely palpable on bilateral lower limb extremities Skin: No rash Psych: Mildly depressed Objective Labs 08/13/24 04:45 08/13/24 04:45 Labs: Laboratory Results - last 24 hr 08/13/24 04:45 WBC 16.2 H RBC 3.54 L Hgb 11.3 L Hct 33.9 L MCV 96 MCH 31.9 MCHC 33.3 RDW Std Deviation 53.8 H Plt Count 124 L D Neut % (Auto) 84 H Lymph % (Auto) 7 L [place] % (Auto) 6 Eos % (Auto) 0 Baso % (Auto) 0 Neut # (Auto) 13.6 H Lymph # (Auto) 1.2 [place] # (Auto) 1.0 H Eos # (Auto) 0.1 Baso # (Auto) 0.1 Immature Gran # (Auto) 0.28 H Absolute Nucleated RBC 0.10 H Immature Gran % 2 H Nucleated RBC % 1 H ESR 78 H Sodium 132 L Potassium 3.6 Chloride 93 L Carbon Dioxide 24.8 Anion Gap 14 BUN 45 H Creatinine 5.4 H* D Estim Creat Clear Calc 10.6 L eGFR 9 L* BUN/Creatinine Ratio 8 L Glucose 132 H Calculated Osmolality 278 Calcium 8.9 Corrected Calcium 9.5 Phosphorus 2.9 Magnesium 2.1 Total Bilirubin 1.7 H D AST 20 ALT < 7 L Alkaline Phosphatase 79 C-Reactive Prot, Quant 20.8 H Total Protein 6.2 Albumin 3.3 L Globulin 2.9 Albumin/Globulin Ratio 1.1 L ABG Interpretation ABG results: 08/08/24 01:28 ABG pH 7.51 H ABG pCO2 34 ABG pO2 108 ABG HCO3 27 H ABG O2 Saturation 99 H ABG Base Excess 4 H Quality Measures Quality Measures sepsis Current suspected stage: ruled out Possible source: skin/soft tissue Blood cultures ordered: yes Antibiotic ordered: Yes Assessment & Plan Assessment Current Active Medications: Generic Name Dose Route Start Last Admin Trade Name Freq PRN Reason Stop Dose Admin Acetaminophen 650 mg 08/08/24 03:24 08/11/24 20:59 Acetaminophen 325 Mg Tablet PO 09/07/24 03:23 650 mg Q6H PRN Administration Fever >100.3 or Pain 1-3 Dextrose 25 ml 08/08/24 04:55 Dextrose 50%-Water Inj 50 Ml Syringe IV 09/07/24 04:54 Q15MIN PRN BG 50-70 responsive npo pt Dextrose 50 ml 08/08/24 04:55 Dextrose 50%-Water Inj 50 Ml Syringe IV 09/07/24 04:54 Q15MIN PRN BG <50 OR BG <70 & pt unresponsive Cefazolin Sodium 2 gm in 100 mls @ 200 mls/hr 08/11/24 16:00 08/11/24 17:08 Ancef 2gm Ivpb IV 08/22/24 16:29 200 mls/hr [email or web address]@1600 LIU Administration Melatonin 9 mg 08/12/24 21:00 08/12/24 21:53 Melatonin 3 Mg Tablet PO 09/11/24 20:59 Not Given HS LIU Metoclopramide HCl 10 mg 08/08/24 03:24 Metoclopramide 5 Mg Tablet PO 09/07/24 03:23 Q6H PRN NAUSEA OR VOMITING Midodrine 10 mg 08/09/24 21:00 08/12/24 21:47 Midodrine 5 Mg Tablet PO 09/08/24 20:59 10 mg BID LIU Administration Plan The patient is a 54-year-old female with significant past medical history of ESRD 2/2 hypertension and type 2 diabetes mellitus presented to ED with chief complaint of altered mental status was found to have severe right leg cellulitis. Nephrology consultation was done for further management of ESRD and hemodialysis. #ESRD secondary to hypertensive/diabetic nephropathy Patient seems to be on volume overloaded status, but there has been improvement on anasarca. -We will continue with regularly scheduled hemodialysis session on TTS #Anemia: DDx: More likely acute blood loss anemia as there has been significant drop in hemoglobin, and today morning this is 10.6, suggestive of possible GI bleed, and patient has not had a colonoscopy done, vs less likely dilutional in the setting of volume overload, versus less likely anemia of chronic disease secondary to ESRD, -GI Dr. Villegas consulted, undergoing GoLytely preparation for colonoscopy this afternoon to evening. #Acute on chronic diarrhea Patient has history of chronic diarrhea, and she has not been able to follow-up with GI for a long time. -GI Dr. Villegas consulted, undergoing GoLytely preparation for colonoscopy this afternoon to evening. #Sepsis secondary to right leg cellulitis, improved #Cellulitis of right leg Patient was started on antibiotics-on Vanco, Zosyn, switched to cefazolin, still significant erythema noted. Blood cultures so far negative. #Hypotension, improved ? ? ?Likely in the setting of underlying cellulitis. Echocardiogram showed normal ejection fraction. -Continue with midodrine 10 mg twice daily, may increase up to 10 mg 3 times daily if blood pressure remains soft #Diabetes mellitus type II -Accu-Cheks, sliding scale, consistent carb diet #Possible cirrhosis As revealed by abdomen/pelvis CT -As per primary team #PAD -As per primary team Thank you for allowing nephrology team to be a part of patient care. The patient's management plan was discussed with my attending physician MD Ajit Bailey MD, PGY2 Attending Provider Attestation/Addendum Patient seen and examined with resident physician Dr. Wilkerson. Note reviewed, agree with findings and recommendations. patient currently seen on dialysis. Tolerating dialysis without any problems. Hemodialysis for 3 hours, 2K, ultrafiltration 2-3 L, Epogen 6000, no heparin ordered. Plan of care discussed with the dialysis nurse. Please see dialysis flowsheet for further details. Continue with broad-spectrum antibiotics for right lower extremity cellulitis. Patient is going for colonoscopy hopefully tonight.
--- NOTE | 2024-08-13 12:07 | PC.NURSE ---
Dialysis completed for 3 hrs, tolerated well.? Pt awake, A/O x4, no complaint of pain.? Respiration even and unlabored? O2 sat 97% on O2 at 1L/min via nc.? Able to removed 3000 ml of fluid net.? Post tx BP 154/75, HR 64, Temp 96.8.?? Pt back in her room.? Call light within reached. Pressure dressing on left upper arm AV graft clean/dry/intact. No bleeding.? Advised pt to remove pres. dressing at around 1400.?Pt verbalized understanding. Report given to Vamshi SELLERS
[2024-08-13 14:05] LABS: Stool for WBCs None Seen (Negative)
[2024-08-13] MEDS: ceFAZolin/D5W 2 GM IV 2 GM/100 ML BAG IV (17:31)
--- NOTE | 2024-08-13 21:28 | PD.IMPROG ---
Documentation for date of: 08/13/24 Subjective Subjective Interval history: Patient was scheduled for colonoscopy today but she was not clear Additional GoLytely Procedure rescheduled for tomorrow Exam Vital Signs Temp Pulse Resp BP Pulse Ox O2 Del Method O2 Flow Rate 97.1 F 121 H 19 121/62 99 Room Air 1 08/13/24 20:00 08/13/24 20:00 08/13/24 20:00 08/13/24 20:00 08/13/24 20:00 08/13/24 20:00 08/13/24 10:46 FiO2 2 08/13/24 10:46 Objective Labs 08/13/24 04:45 08/13/24 04:45 Labs: Laboratory Results - last 24 hr 08/12/24 08/13/24 04:00 04:45 WBC 16.2 H RBC 3.54 L Hgb 11.3 L Hct 33.9 L MCV 96 MCH 31.9 MCHC 33.3 RDW Std Deviation 53.8 H Plt Count 124 L D Neut % (Auto) 84 H Lymph % (Auto) 7 L [place] % (Auto) 6 Eos % (Auto) 0 Baso % (Auto) 0 Neut # (Auto) 13.6 H Lymph # (Auto) 1.2 [place] # (Auto) 1.0 H Eos # (Auto) 0.1 Baso # (Auto) 0.1 Immature Gran # (Auto) 0.28 H Absolute Nucleated RBC 0.10 H Immature Gran % 2 H Nucleated RBC % 1 H ESR 78 H Sodium 132 L Potassium 3.6 Chloride 93 L Carbon Dioxide 24.8 Anion Gap 14 BUN 45 H Creatinine 5.4 H* D Estim Creat Clear Calc 10.6 L eGFR 9 L* BUN/Creatinine Ratio 8 L Glucose 132 H Calculated Osmolality 278 Calcium 8.9 Corrected Calcium 9.5 Phosphorus 2.9 Magnesium 2.1 Total Bilirubin 1.7 H D AST 20 ALT < 7 L Alkaline Phosphatase 79 C-Reactive Prot, Quant 20.8 H Total Protein 6.2 Albumin 3.3 L Globulin 2.9 Albumin/Globulin Ratio 1.1 L Stool for White Cells None Seen Impressions Impression: # Chronic persistent diarrhea Additional GoLytely Colonoscopy rescheduled for tomorrow ABG Interpretation ABG results: 08/08/24 01:28 ABG pH 7.51 H ABG pCO2 34 ABG pO2 108 ABG HCO3 27 H ABG O2 Saturation 99 H ABG Base Excess 4 H Assessment & Plan A&P Narrative # Chronic persistent diarrhea etiology uncertain Differential diagnosis autonomic neuropathy of the GI tract due to underlying longstanding diabetes mellitus Infectious enterocolitis versus inflammatory colitis Plan Complete stool analysis ANCA antibody Fiberoptic colonoscopy with biopsies for further evaluation Clear liquid diet GoLytely Once patient is cleared we will perform colonoscopy with biopsy with intubation of the terminal ileum Other medical problems include End-stage renal disease on hemodialysis MWF Diabetes mellitus type 2 Essential hypertension Peripheral vascular disease right lower extremity worse than left lower extremity Cellulitis lower extremity leading to sepsis on broad-spectrum antibiotics IV Zosyn and vancomycin and now currently on Ancef Thank you once again for the opportunity to participate in care of this patient Time Spent With Patient Time: Total time spent is greater than 50% in coordination of care (as documented) at patient's floor/unit and/or counseling patient:
[2024-08-13] MEDS: MIDODRINE 5 MG TABLET 10 MG PO (21:38)
[2024-08-14] VITALS (19 sets, daily range): BP systolic 118–152; BP diastolic 61–83; PULSE 69–83; RESP 16–98; TEMP 36.2–36.8; O2SAT 90–100; BMI 31.2
[2024-08-14 05:51] LABS: Basophils # (Auto) 0.1 Thou/mm3 (0.0-0.2); Basophils % (Auto) 0 % (0-2.5); Eosinophils # (Auto) 0.1 Thou/mm3 (0.0-0.5); Eosinophils % (Auto) 0 % (0-10); Hematocrit 32.3 % (36.0-46.0); Immature Granulocytes % (Auto) 2 % (0-0); Immature Granulocytes Auto 0.47 Thou/mm3 (0.00-0.00); Lymphocytes # (Auto) 1.2 Thou/mm3 (1.0-4.8); Lymphocytes % (Auto) 6 % (10-50); Mean Corpuscular HGB Conc 34.1 g/dl (31.0-37.0); Mean Corpuscular Hemoglobin 32.3 pg (25.0-35.0); Mean Corpuscular Volume 95 fL (80-100); Monocytes # (Auto) 1.2 Thou/mm3 (0.0-0.8); Monocytes % (Auto) 6 % (0-12); Neutrophils # (Auto) 17.4 Thou/mm3 (1.8-7.7); Neutrophils % (Auto) 86 % (37-80); Nucleated Red Blood Cell # 0.08 Thou/mm3 (0.00-0.00); Nucleated Red Blood Cell % 0 /100 WBC (0); Platelet Count 175 Thou/mm3 (140-440); RDW Standard Deviation 53.1 fL (36.4-46.3); Red Blood Count 3.41 Miln/mm3 (4.00-5.20); White Blood Count 20.4 Thou/mm3 (3.6-11.0)
[2024-08-14 06:46] LABS: Alanine Aminotransferase < 7 U/L (10-49); Alkaline Phosphatase 84 U/L (46-116); Anion Gap 12 (7-16); Aspartate Amino Transferase 17 U/L (0-34); BUN/Creatinine Ratio 7 Ratio (12-20); Bilirubin,Total 1.2 mg/dL (0.3-1.2); Blood Urea Nitrogen 27 mg/dL (9-23); Calcium 8.6 mg/dL (8.3-10.6); Calcium (Corrected) 9.4 mg/dL (8.5-10.1); Carbon Dioxide 27.8 mMol/L (20.0-31.0); Chloride 96 mMol/L (98-107); Creatinine (Component) 4.1 mg/dL (0.6-1.3); Estimated Creatinine Clearance 13.7 mL/min (>60); Globulin 2.9 gm/dL (2.3-3.5); Glucose 220 mg/dL (74-106); Magnesium 2.1 mg/dL (1.6-2.6); Osmolality,Calculated 284 (275-295); Phosphorous 2.3 mg/dL (2.4-5.1); Potassium 3.3 mMol/L (3.4-5.1); Sodium 136 mMol/L (136-145); Total Protein 5.9 gm/dL (5.7-8.2); eGFR 12 See Note
[2024-08-14] MEDS: NAPH,KPH MBDB 1 PACKET (1.5 GM) PO (08:20)
[2024-08-14] MEDS: POTASSIUM CHL 10 mEq IVPB 10 MEQ/100 ML BAG 100 MEQ IV (08:21)
[2024-08-14] MEDS: DOXYCYCLINE 100 MG TABLET PO ×2 (08:21→20:30)
--- NOTE | 2024-08-14 09:05 | PC.SS ---
Follow up note: Waiting for Dr. Villegas to do work up. Pt will return home upon dc.
--- NOTE | 2024-08-14 09:14 | ESPR_ITS ---
Documentation for date of: 08/14/24 Subjective Subjective Interval history: Ms. Aguilar is a 54-year-old lady with extensive past medical history of uncontrolled hypertension and diabetes for many years ended up on dialysis 2 years ago under my care and has been coming to dialysis treatments on TTS (noncompliant with treatments due to loose stools) was admitted to the emergency department brought by the son with generalized weakness and significant right leg edema which is going on for the last 3 days. Patient apparently came to the ED last week and diagnosed with flu and was given Tamiflu. I saw her at the dialysis unit on and emphasize compliance. Her son is also on dialysis and was recently switched from MWF to TTS sessions. Hope she will be compliant. In the emergency department as she was having fever of 105, WBC 10.2, pH 7.51, lactic acid 4.1, LFTs were elevated, LDH 594, creatinine 6.9, BNP greater than 3280, Pro-Antwan 120, troponin 0.5. Urinalysis shows blood and protein with glucose. Chest x-ray showed fluid overload, head CT negative. Abdominal CT showed liver cirrhosis, pulmonary edema Patient denies any chest pain, nausea/vomiting, recent trauma or bug bite. Patient does walk with shoes and socks at home. Meds: Lomotil as needed, Sensipar 30 mg daily, Xphozah 30 mg, Lasix 40 mg daily, Cincalet, sevelamer carbonate 3 times daily Social history: Patient denies any smoking, alcohol use or illicit drug use. Patient will be admitted for sepsis secondary to RLE cellulitis. Renal consultation requested for need for dialysis. Patient currently seen on dialysis. 08/09/2024 patient currently seen in telemetry. Still having some pain in the right lower extremities at the site of extensive cellulitis. Edema tad better after dialysis although erythema still persist. Currently on Zosyn, Vanco. Denies any chest pain. Blood pressure 99/50, heart rate 82. WBC 13.7, hemoglobin 12.1. Platelets 128. Sodium 138, potassium 3.6, bicarbonate 31.2, BUN 30, creatinine 4.9, calcium 8.8, AST 111, total bilirubin 1.5, troponin 0.4, albumin 2.4, Echocardiogram showed ejection fraction 55%. 08/10/2024: The patient was examined and interviewed at the bedside this morning. She still has anasarca, extensive cellulitis of right leg, and was saturating 97% on 1 L NC. Other vitals fairly stable, CR trended up to 17.3, chemistry panel significant for ESRD. The patient had 1 hemodialysis on today, as she still seems to be on volume overload. 08/11/2024: The patient was examined and interviewed at the bedside this morning. She reported doing well. Physical examination was significant for 2-3+ peripheral pitting edema. Still has cellulitis of right leg with erythema. Labs significant for decreasing WBC to 15.1, hemoglobin 11.5 likely dilutional, sodium 131, chloride 93, BUN 53, creatinine 6.3 And total bilirubin trended up to 2.3. The patient will undergo regularly scheduled hemodialysis session today as per TTS schedule. 08/12/2024: The patient was interviewed and examined at the bedside this morning. She reported having diarrhea, which is her chronic problem, and due to which she misses her dialysis frequently. She has not been able to get outpatient GI appointment for a long time. Her vitals are fairly stable count trended down to 14.2, sodium 134, potassium 3.2 was repleted with 20 mEq p.o. KCl, UN 36 and creatinine 4.7 with EGFR 11 consistent with ESRD. And her total bilirubin has been stable at 2.3. The patient has got hemodialysis [id number] in last 2 days. The patient will get another session of hemodialysis tomorrow morning again. 08/13/2024: The patient was interviewed and examined at the bedside this morning. She was saturating 97% on room air. Her other vitals were fairly stable. Chemistry panel significant for sodium 132, chloride 93, BUN 45 and creatinine 5.4. Physical exam is still significant for bilateral lower limb edema and right leg cellulitis that has been improving. The patient will undergo regularly scheduled hemodialysis today. 08/14/2024: The patient was interviewed and examined at the bedside this morning again. She reported doing well. She was saturating 97% on room air. Her other vitals are fairly stable. Her white count continuously increasing to 20.4, potassium 3.3, phosphorus 2.3 magnesium 2.1, BUN 27, creatinine 4.1, EGFR 12 consistent with ESRD. Physical exam was significant for 2+ bilateral lower limb pitting edema. She will get another session of dialysis tomorrow. [facility], and colonoscopy was canceled, will be done today. Exam Vital Signs Temp Pulse Resp BP Pulse Ox O2 Del Method O2 Flow Rate 97.7 F 70 24 H 128/72 97 Room Air 1 08/14/24 08:00 08/14/24 08:15 08/14/24 08:00 08/14/24 08:15 08/14/24 08:00 08/14/24 08:00 08/13/24 10:46 FiO2 2 08/13/24 10:46 Narrative Exam General: No acute distress, Alert and Oriented x 3 HEENT: Moist mucous membranes, oropharynx clear Neck: Supple, No masses, No JVD CVS: S1S2 Regular rate and rhythm, No murmurs, rubs or gallops Lungs: Clear to auscultation with no accessory use, no wheeze no rhonchi Abd: Soft, NT/ND, +BS, no organomegaly Ext: 2+ BL LL pitting edema, right lower leg erythema, peripheral arteries barely palpable on bilateral lower limb extremities Skin: No rash Psych: Appropriate mood and affect Objective Labs 08/16/24 05:35 08/16/24 05:35 Labs: Laboratory Results - last 24 hr 08/12/24 08/14/24 04:00 05:21 WBC 20.4 H RBC 3.41 L Hgb 11.0 L Hct 32.3 L MCV 95 MCH 32.3 MCHC 34.1 RDW Std Deviation 53.1 H Plt Count 175 D Neut % (Auto) 86 H Lymph % (Auto) 6 L [place] % (Auto) 6 Eos % (Auto) 0 Baso % (Auto) 0 Neut # (Auto) 17.4 H Lymph # (Auto) 1.2 [place] # (Auto) 1.2 H Eos # (Auto) 0.1 Baso # (Auto) 0.1 Immature Gran # (Auto) 0.47 H Absolute Nucleated RBC 0.08 H Immature Gran % 2 H Nucleated RBC % 0 Sodium 136 Potassium 3.3 L Chloride 96 L Carbon Dioxide 27.8 Anion Gap 12 BUN 27 H Creatinine 4.1 H* D Estim Creat Clear Calc 13.7 L eGFR 12 L* BUN/Creatinine Ratio 7 L Glucose 220 H D Calculated Osmolality 284 Calcium 8.6 Corrected Calcium 9.4 Phosphorus 2.3 L Magnesium 2.1 Total Bilirubin 1.2 D AST 17 ALT < 7 L Alkaline Phosphatase 84 Total Protein 5.9 Albumin 3.0 L Globulin 2.9 Albumin/Globulin Ratio 1.0 L Stool for White Cells None Seen ABG Interpretation ABG results: 08/08/24 01:28 ABG pH 7.51 H ABG pCO2 34 ABG pO2 108 ABG HCO3 27 H ABG O2 Saturation 99 H ABG Base Excess 4 H Quality Measures Quality Measures sepsis Current suspected stage: ruled out Possible source: skin/soft tissue Blood cultures ordered: yes Antibiotic ordered: Yes Assessment & Plan Assessment Current Active Medications: Generic Name Dose Route Start Last Admin Trade Name Freq PRN Reason Stop Dose Admin Acetaminophen 650 mg 08/08/24 03:24 08/11/24 20:59 Acetaminophen 325 Mg Tablet PO 09/07/24 03:23 650 mg Q6H PRN Administration Fever >100.3 or Pain 1-3 Dextrose 25 ml 08/08/24 04:55 Dextrose 50%-Water Inj 50 Ml Syringe IV 09/07/24 04:54 Q15MIN PRN BG 50-70 responsive npo pt Dextrose 50 ml 08/08/24 04:55 Dextrose 50%-Water Inj 50 Ml Syringe IV 09/07/24 04:54 Q15MIN PRN BG <50 OR BG <70 & pt unresponsive Doxycycline Hyclate 100 mg 08/14/24 09:00 08/14/24 08:21 Doxycycline 100 Mg Tablet PO 08/21/24 08:59 100 mg BID LIU Administration Cefazolin Sodium 2 gm in 100 mls @ 200 mls/hr 08/11/24 16:00 08/13/24 17:31 Ancef 2gm Ivpb IV 08/22/24 16:29 200 mls/hr [email or web address]@1600 LIU Administration Potassium Chloride 10 meq in 100 mls @ 100 mls/hr 08/14/24 07:50 08/14/24 08:21 Kcl Ivpb IV 08/14/24 09:49 100 mls/hr Q1H LIU Administration Melatonin 9 mg 08/12/24 21:00 08/13/24 21:38 Melatonin 3 Mg Tablet PO 09/11/24 20:59 Not Given HS LIU Metoclopramide HCl 10 mg 08/08/24 03:24 Metoclopramide 5 Mg Tablet PO 09/07/24 03:23 Q6H PRN NAUSEA OR VOMITING Midodrine 10 mg 08/09/24 21:00 08/14/24 08:15 Midodrine 5 Mg Tablet PO 09/08/24 20:59 Not Given BID LIU Plan The patient is a 54-year-old female with significant past medical history of ESRD 2/2 hypertension and type 2 diabetes mellitus presented to ED with chief complaint of altered mental status was found to have severe right leg cellulitis. Nephrology consultation was done for further management of ESRD and hemodialysis. #ESRD secondary to hypertensive/diabetic nephropathy Patient seems to be on volume overloaded status, but there has been improvement on anasarca. -We will continue with regularly scheduled hemodialysis session on TTS #Anemia: DDx: More likely acute blood loss anemia as there has been significant drop in hemoglobin, and today morning this is 10.6, suggestive of possible GI bleed, and patient has not had a colonoscopy done, vs less likely dilutional in the setting of volume overload, versus less likely anemia of chronic disease secondary to ESRD, -GI Dr. Villegas consulted, undergoing GoLytely preparation for colonoscopy this afternoon to evening. #Acute on chronic diarrhea Patient has history of chronic diarrhea, and she has not been able to follow-up with GI for a long time. -GI Dr. Villegas consulted, undergoing GoLytely preparation for colonoscopy this afternoon to evening. #Sepsis secondary to right leg cellulitis, improved #Cellulitis of right leg Patient was started on antibiotics-on Vanco, Zosyn, switched to cefazolin, still significant erythema noted. Blood cultures so far negative. #Hypotension, improved ? ? ?Likely in the setting of underlying cellulitis. Echocardiogram showed normal ejection fraction. -Continue with midodrine 10 mg twice daily, may increase up to 10 mg 3 times daily if blood pressure remains soft #Diabetes mellitus type II -Accu-Cheks, sliding scale, consistent carb diet #Possible cirrhosis As revealed by abdomen/pelvis CT -As per primary team #PAD -As per primary team Thank you for allowing nephrology team to be a part of patient care. The patient's management plan was discussed with my attending physician MD Ajit Bailey MD, PGY2 Attending Provider Attestation/Addendum Patient seen and examined with resident physician Dr. Wilkerson. Note reviewed, agree with findings and recommendations. Patient received dialysis yesterday. Next dialysis scheduled for tomorrow Continue with broad-spectrum antibiotics for right lower extremity cellulitis. Patient is going for colonoscopy hopefully tonight. Was not cleaned yesterday.
[2024-08-14] MEDS: POTASSIUM CHL 10 mEq IVPB 10 MEQ/100 ML BAG 75 MEQ IV (09:46)
--- NOTE | 2024-08-14 11:42 | ESPR_ITS ---
<Statement entered by Richard Rao MD - 08/15/24 04:52> Patient to undergo colonoscopy today and most likely to be discharged tomorrow. I discussed with and supervised the internet marketing consultant physician involved in the care of this patient. Patient assessment and plan was discussed with entire medicine team, including my attending. I agree with the assessment and plan as documented by internet marketing consultant doctor. Patient care was discussed with my attending physician Dr. Robert Rao, PGY-2 Documentation for date of: 08/14/24 Subjective Subjective Interval history: Patient was seen and examined at dialysis unit this AM. Patient had no overnight events. Patient tolerating on clear liquid diet, adequate urine output and mentation is at baseline. Patient complains of a non productive cough. Endorses improvement of her Right foot pain Patient scheduled for colonoscopy today CT lower extremity completed on 08/13/24 confirmed Right lower extremity cellulitis. Negative for osteomyelitis 08/08/2024 blood culture NBG x 48 hours 08/10/2024 blood cultures NBG x 48 hours Patient will get 4 more doses of cefazolin 2G IV times during dialysis sessions WBC uptrended to 20.4 from 16.2. Will start on doxycycline 100 Mg IV twice daily K 3.3 and Phos 2.3. Patient repleted with 1 packet Neutra-Phos and KCl 20 mEq IV x 1 Exam Vital Signs Temp Pulse Resp BP Pulse Ox O2 Del Method O2 Flow Rate 97.7 F 70 24 H 128/72 97 Room Air 1 08/14/24 08:00 08/14/24 08:15 08/14/24 08:00 08/14/24 08:15 08/14/24 08:00 08/14/24 08:00 08/13/24 10:46 FiO2 2 08/13/24 10:46 Narrative Exam Constitutional Alert, oriented x 3 and comfortable. Middle-age female, appears much older than her age. HEENT Vision grossly intact. Patent nares. Trachea midline Respiratory Chest normal on inspection and decreased AE at bases Cardiovascular S1 and S2 audible, RRR. No murmurs carotid bruit. No gross JVD. Abdominal Soft and non tender to palpation in all quadrants. BS + Genitourinary No bladder tenderness, no flank pain. Normal to palpation Musculoskeletal Extremities tone within normal limits. Trace bilateral lower extremity edema up to knees . Erythematous right lower limb up to knee- improving Neurological CN II - XII grossly intact. Extremity motor and sensation grossly intact. Skin Warm, dry and intact. Left brachiobasilic fistula. Trill felt Psychiatric Patient has flat affect, is cooperative Objective Labs 08/14/24 05:21 08/14/24 05:21 Labs: Laboratory Results - last 24 hr 08/12/24 08/14/24 04:00 05:21 WBC 20.4 H RBC 3.41 L Hgb 11.0 L Hct 32.3 L MCV 95 MCH 32.3 MCHC 34.1 RDW Std Deviation 53.1 H Plt Count 175 D Neut % (Auto) 86 H Lymph % (Auto) 6 L [place] % (Auto) 6 Eos % (Auto) 0 Baso % (Auto) 0 Neut # (Auto) 17.4 H Lymph # (Auto) 1.2 [place] # (Auto) 1.2 H Eos # (Auto) 0.1 Baso # (Auto) 0.1 Immature Gran # (Auto) 0.47 H Absolute Nucleated RBC 0.08 H Immature Gran % 2 H Nucleated RBC % 0 Sodium 136 Potassium 3.3 L Chloride 96 L Carbon Dioxide 27.8 Anion Gap 12 BUN 27 H Creatinine 4.1 H* D Estim Creat Clear Calc 13.7 L eGFR 12 L* BUN/Creatinine Ratio 7 L Glucose 220 H D Calculated Osmolality 284 Calcium 8.6 Corrected Calcium 9.4 Phosphorus 2.3 L Magnesium 2.1 Total Bilirubin 1.2 D AST 17 ALT < 7 L Alkaline Phosphatase 84 Total Protein 5.9 Albumin 3.0 L Globulin 2.9 Albumin/Globulin Ratio 1.0 L Stool for White Cells None Seen ABG Interpretation ABG results: 08/08/24 01:28 ABG pH 7.51 H ABG pCO2 34 ABG pO2 108 ABG HCO3 27 H ABG O2 Saturation 99 H ABG Base Excess 4 H Quality Measures Quality Measures sepsis Current suspected stage: sepsis (resolving) Possible source: skin/soft tissue Blood cultures ordered: yes Antibiotic ordered: Yes Assessment & Plan Assessment Current Active Medications: Generic Name Dose Route Start Last Admin Trade Name Freq PRN Reason Stop Dose Admin Acetaminophen 650 mg 08/08/24 03:24 08/11/24 20:59 Acetaminophen 325 Mg Tablet PO 09/07/24 03:23 650 mg Q6H PRN Administration Fever >100.3 or Pain 1-3 Dextrose 25 ml 08/08/24 04:55 Dextrose 50%-Water Inj 50 Ml Syringe IV 09/07/24 04:54 Q15MIN PRN BG 50-70 responsive npo pt Dextrose 50 ml 08/08/24 04:55 Dextrose 50%-Water Inj 50 Ml Syringe IV 09/07/24 04:54 Q15MIN PRN BG <50 OR BG <70 & pt unresponsive Doxycycline Hyclate 100 mg 08/14/24 09:00 08/14/24 08:21 Doxycycline 100 Mg Tablet PO 08/21/24 08:59 100 mg BID LIU Administration Cefazolin Sodium 2 gm in 100 mls @ 200 mls/hr 08/11/24 16:00 08/13/24 17:31 Ancef 2gm Ivpb IV 08/22/24 16:29 200 mls/hr [email or web address]@1600 LIU Administration Melatonin 9 mg 08/12/24 21:00 08/13/24 21:38 Melatonin 3 Mg Tablet PO 09/11/24 20:59 Not Given HS LIU Metoclopramide HCl 10 mg 08/08/24 03:24 Metoclopramide 5 Mg Tablet PO 09/07/24 03:23 Q6H PRN NAUSEA OR VOMITING Midodrine 10 mg 08/09/24 21:00 08/14/24 08:15 Midodrine 5 Mg Tablet PO 09/08/24 20:59 Not Given BID LIU Plan Patient is a 54-year-old female with HTN, ESRD on HD MWF, T2DM who was brought to the ED by her son due to altered mental status. Additionally, son states that patient had severe generalized weakness and needed to be carried to her bedroom. Son states that patient's legs have gotten swollen and red. Patient will be admitted for sepsis secondary to RLE cellulitis. # Sepsis, secondary to bilateral lower extremity cellulitis?resolving # DVT ruled out # Peripheral arterial disease # Leukocytosis Patient meets SIRS criteria + source; LA 4.1, Pro-Antwan 120 although may be falsely elevated in setting of ESRD 08/08/2024 blood culture NBG x 48 hours 08/10/2024 blood cultures NBG x 24 hours MRSA nasal screen negative Received 3 days of Zosyn 3.375 g IV twice daily from [08/08 - 08/11] Received 3 days of vancomycin 1 g IV daily from [08/08 - 08/11] Bilateral lower extremity arterial duplex completed on 08/10/2024 findings include: Bilateral peripheral obstructive arterial disease, most severe involving right lower extremity. Bilateral lower extremity venous duplex ultrasound completed on 08/10/2024 ruled out DVT. WBC uptrended to 20.4 from 16.2. Will start on doxycycline 100 Mg IV twice daily Plan: ? Started on doxycycline 100 Mg IV twice daily ? Cefazolin 2 g IV after dialysis sessions for a total of 6 doses for treatment of cellulitis, last dose on 08/22/2024 # Osteomyelitis ruled out Patient complains of right knee pain also. Cellulitis appears persistent CT lower extremity completed on 08/13/24 confirmed Right lower extremity cellulitis. Negative for osteomyelitis #Chronic diarrhea Patient endorses a 3-month history of chronic diarrhea which has led her to being noncompliant with her dialysis sessions. Even when she attends dialysis she usually cuts the sessions short due to diarrhea. DDx: Microscopic colitis, IBS, IBD Plan: - Pending ANCA, stool for calprotectin and WBCs ? For colonoscopy once cleared as per GI recommendations ? GI, Dr. Villegas consulted. Appreciate recommendations #Hypokalemia #Hypophosphatemia K 3.3 and Phos 2.3. Patient repleted with 1 packet Neutra-Phos and KCl 20 mEq IV x 1 #Insomnia Patient has history of altered mental status on admission. Please avoid antihistamines, benzos, antipsychotics. Plan: ? Continue melatonin 9 Mg p.o. at bedtime #ESRD on HD, TTS # Chronic systolic heart failure with preserved ejection fraction [55%] BNP >3280 with edema noted Transthoracic echocardiogram completed on 08/08/2024 findings include: Normal LV size. Hypokinetic anterior septal wall motion. Estimated EF 55 %. RV is mildly dilated with moderately decreased systolic function. Estimated RVSP, 47mmHg. RAP 15. Mild MR. Moderate TR. Last HD session on 08/13/2024 Plan: ? For HD as per nephrology, her regular schedule Saturday, , Saturday. #Thrombocytopenia On admission plt 151 ---> 96 ---> 80 ---> 85 --->124 Etiology: ESRD, heparin use 4 HTS score 1 point; low probability of heparin-induced thrombocytopenia Plan: ? Continue holding heparin for now in light of thrombocytopenia. #Acute metabolic encephalopathy- resolved Likely secondary to sepsis from cellulitis and/or Tamiflu administration. Patient given Tamiflu 75mg BID on 08/02/24, which was not renally dosed. Head CT negative for hemorrhage. Per son, patient is not back to her baseline, as she generally is very talkative and is A&O x 3. #Influenza B+ - resolved Tested postive on 08/02/24. Unsure if patient took dose BID since 08/02/24. Gave a x1 order of Tamiflu 30mg #NSTEMI, likely type II Denies any chest pain at this time; likely secondary to sepsis Troponin 0.553, continue to trend until delta noted # Mild transaminitis?resolved # Hyperbilirubinemia T. bili 1.6 ---> 2.3, AST 138 ---> 32, ALT 26 and ALP 71 # Essential HTN Patient takes Lasix at home BP stable at this time, will hold off on antihypertensives for now #History of T2DM 08/10/2019 HbA1c 7.1% Blood glucose range controlled between 140s-180s on diet Plan: ? Continue low consistent carb diet Health maintenance: Disposition: Pending colonoscopy. Anticipate discharge within next 24 to 48 hours Diet: Renal Lines: pIVs GI Prophylaxis: None Thrombo Prophylaxis: None Code status: FULL CODE Plan of care discussed with Attending Dr. Jones and PGY2 Dr. Jalen Alvarado MD PGY 1
--- NOTE | 2024-08-14 19:38 | SUR.PHASEI ---
Pt. arrived to recovery via gurney, eyes closed, responds to verbal commands, VSS, no c/o pain or nausea at this time, lung sounds clear, equal expansion tavia., pt. receiving 4 liters 02 via ID, pt. has cellulitis to tavia. lower extremities, present upon arrival to unit. Report received from Ariella SELLERS.
--- NOTE | 2024-08-14 20:06 | SUR.PHASEI ---
Called and gave report on pt. s/p procedure to Gniny SELLERS.
--- NOTE | 2024-08-14 20:15 | SUR.PHASEI ---
Pt. transferred to room 265 via RAGHU nair, no c/o pain or nausea, IV flushed and Ginny heaton RN assumed care of pt.
[2024-08-14] MEDS: guaiFENesin SYRUP 200 MG/10 ML UDC PO (20:30)
[2024-08-15] VITALS (24 sets, daily range): BP systolic 99–150; BP diastolic 61–87; PULSE 67–84; RESP 15–24; TEMP 36.2–36.8; O2SAT 98–100; BMI 30.3
[2024-08-15 05:54] LABS: Basophils # (Auto) 0.1 Thou/mm3 (0.0-0.2); Basophils % (Auto) 0 % (0-2.5); Eosinophils # (Auto) 0.1 Thou/mm3 (0.0-0.5); Eosinophils % (Auto) 0 % (0-10); Hematocrit 31.2 % (36.0-46.0); Hemoglobin 10.6 g/dL (12.0-16.0); Immature Granulocytes % (Auto) 2 % (0-0); Immature Granulocytes Auto 0.38 Thou/mm3 (0.00-0.00); Lymphocytes # (Auto) 1.1 Thou/mm3 (1.0-4.8); Lymphocytes % (Auto) 5 % (10-50); Mean Corpuscular Hemoglobin 32.3 pg (25.0-35.0); Mean Corpuscular Volume 95 fL (80-100); Monocytes # (Auto) 1.2 Thou/mm3 (0.0-0.8); Monocytes % (Auto) 5 % (0-12); Neutrophils # (Auto) 20.3 Thou/mm3 (1.8-7.7); Neutrophils % (Auto) 88 % (37-80); Nucleated Red Blood Cell # 0.04 Thou/mm3 (0.00-0.00); Nucleated Red Blood Cell % 0 /100 WBC (0); Platelet Count 206 Thou/mm3 (140-440); RDW Standard Deviation 53.8 fL (36.4-46.3); Red Blood Count 3.28 Miln/mm3 (4.00-5.20); White Blood Count 23.2 Thou/mm3 (3.6-11.0)
[2024-08-15 06:59] LABS: Alanine Aminotransferase < 7 U/L (10-49); Albumin, Serum 2.9 gm/dL (3.5-5.0); Alkaline Phosphatase 81 U/L (46-116); Anion Gap 12 (7-16); Aspartate Amino Transferase 11 U/L (0-34); BUN/Creatinine Ratio 8 Ratio (12-20); Bilirubin,Total 1.1 mg/dL (0.3-1.2); Blood Urea Nitrogen 37 mg/dL (9-23); Calcium 8.3 mg/dL (8.3-10.6); Calcium (Corrected) 9.2 mg/dL (8.5-10.1); Carbon Dioxide 27.6 mMol/L (20.0-31.0); Chloride 96 mMol/L (98-107); Creatinine (Component) 4.8 mg/dL (0.6-1.3); Estimated Creatinine Clearance 11.5 mL/min (>60); Globulin 2.9 gm/dL (2.3-3.5); Glucose 115 mg/dL (74-106); Osmolality,Calculated 281 (275-295); Phosphorous 2.8 mg/dL (2.4-5.1); Potassium 3.6 mMol/L (3.4-5.1); Sodium 136 mMol/L (136-145); Total Protein 5.8 gm/dL (5.7-8.2); eGFR 10 See Note
--- NOTE | 2024-08-15 08:00 | PC.NURSE ---
Patient transported to dialysis with no signs of acute distress.
[2024-08-15] MEDS: ACETAMINOPHEN 325 MG TABLET 650 MG PO (10:28)
--- NOTE | 2024-08-15 10:44 | ESPR_ITS ---
Documentation for date of: 08/15/24 Subjective Subjective Interval history: Ms. Aguilar is a 54-year-old lady with extensive past medical history of uncontrolled hypertension and diabetes for many years ended up on dialysis 2 years ago under my care and has been coming to dialysis treatments on TTS (noncompliant with treatments due to loose stools) was admitted to the emergency department brought by the son with generalized weakness and significant right leg edema which is going on for the last 3 days. Patient apparently came to the ED last week and diagnosed with flu and was given Tamiflu. I saw her at the dialysis unit on and emphasize compliance. Her son is also on dialysis and was recently switched from MWF to TTS sessions. Hope she will be compliant. In the emergency department as she was having fever of 105, WBC 10.2, pH 7.51, lactic acid 4.1, LFTs were elevated, LDH 594, creatinine 6.9, BNP greater than 3280, Pro-Antwan 120, troponin 0.5. Urinalysis shows blood and protein with glucose. Chest x-ray showed fluid overload, head CT negative. Abdominal CT showed liver cirrhosis, pulmonary edema Patient denies any chest pain, nausea/vomiting, recent trauma or bug bite. Patient does walk with shoes and socks at home. Meds: Lomotil as needed, Sensipar 30 mg daily, Xphozah 30 mg, Lasix 40 mg daily, Cincalet, sevelamer carbonate 3 times daily Social history: Patient denies any smoking, alcohol use or illicit drug use. Patient will be admitted for sepsis secondary to RLE cellulitis. Renal consultation requested for need for dialysis. Patient currently seen on dialysis. 08/09/2024 patient currently seen in telemetry. Still having some pain in the right lower extremities at the site of extensive cellulitis. Edema tad better after dialysis although erythema still persist. Currently on Zosyn, Vanco. Denies any chest pain. Blood pressure 99/50, heart rate 82. WBC 13.7, hemoglobin 12.1. Platelets 128. Sodium 138, potassium 3.6, bicarbonate 31.2, BUN 30, creatinine 4.9, calcium 8.8, AST 111, total bilirubin 1.5, troponin 0.4, albumin 2.4, Echocardiogram showed ejection fraction 55%. 08/10/2024: The patient was examined and interviewed at the bedside this morning. She still has anasarca, extensive cellulitis of right leg, and was saturating 97% on 1 L NC. Other vitals fairly stable, CR trended up to 17.3, chemistry panel significant for ESRD. The patient had 1 hemodialysis on today, as she still seems to be on volume overload. 08/11/2024: The patient was examined and interviewed at the bedside this morning. She reported doing well. Physical examination was significant for 2-3+ peripheral pitting edema. Still has cellulitis of right leg with erythema. Labs significant for decreasing WBC to 15.1, hemoglobin 11.5 likely dilutional, sodium 131, chloride 93, BUN 53, creatinine 6.3 And total bilirubin trended up to 2.3. The patient will undergo regularly scheduled hemodialysis session today as per TTS schedule. 08/12/2024: The patient was interviewed and examined at the bedside this morning. She reported having diarrhea, which is her chronic problem, and due to which she misses her dialysis frequently. She has not been able to get outpatient GI appointment for a long time. Her vitals are fairly stable count trended down to 14.2, sodium 134, potassium 3.2 was repleted with 20 mEq p.o. KCl, UN 36 and creatinine 4.7 with EGFR 11 consistent with ESRD. And her total bilirubin has been stable at 2.3. The patient has got hemodialysis [id number] in last 2 days. The patient will get another session of hemodialysis tomorrow morning again. 08/13/2024: The patient was interviewed and examined at the bedside this morning. She was saturating 97% on room air. Her other vitals were fairly stable. Chemistry panel significant for sodium 132, chloride 93, BUN 45 and creatinine 5.4. Physical exam is still significant for bilateral lower limb edema and right leg cellulitis that has been improving. The patient will undergo regularly scheduled hemodialysis today. 08/14/2024: The patient was interviewed and examined at the bedside this morning again. She reported doing well. She was saturating 97% on room air. Her other vitals are fairly stable. Her white count continuously increasing to 20.4, potassium 3.3, phosphorus 2.3 magnesium 2.1, BUN 27, creatinine 4.1, EGFR 12 consistent with ESRD. Physical exam was significant for 2+ bilateral lower limb pitting edema. She will get another session of dialysis tomorrow. Patient was not clear from [employer] yesterday evening, and colonoscopy was canceled, will be done today. 08/15/2024: The patient was interviewed and examined at the bedside this morning. She reported doing well. Her vitals were fairly stable, saturating 99% on 2 L NC with blood pressure 50/82. Her white count trended up to 23.2 and her right leg erythema seems to be improving. She still has 2+ bilateral lower limb pitting edema. Her renal function consistent with ESRD. Colonoscopy done yesterday, hemorrhoids found on perianal exam, erythematous mucosa in the ascending colon, in the descending colon and the rectum and were biopsied. 1 medium 7 to 9 mm polyp in the proximal ascending colon, removed with hot snare. Moderate diverticulosis in the right colon and in the ascending colon. There was no evidence of diverticular bleeding. Very poor sphincter tone. Exam Vital Signs Temp Pulse Resp BP Pulse Ox O2 Del Method O2 Flow Rate 98.2 F 76 18 150/82 H 99 Nasal Cannula 2 08/15/24 08:06 08/15/24 10:30 08/15/24 08:06 08/15/24 10:30 08/15/24 08:06 08/15/24 08:00 08/15/24 08:06 FiO2 2 08/13/24 10:46 Narrative Exam General: No acute distress, Alert and Oriented x 3 HEENT: Moist mucous membranes, oropharynx clear Neck: Supple, No masses, No JVD CVS: S1S2 Regular rate and rhythm, No murmurs, rubs or gallops Lungs: Clear to auscultation with no accessory use, no wheeze no rhonchi Abd: Soft, NT/ND, +BS, no organomegaly Ext: 2+ BL LL pitting edema, right lower leg erythema improving, peripheral arteries barely palpable on bilateral lower limb extremities Skin: No rash Psych: Appropriate mood and affect Objective Labs 08/16/24 05:35 08/16/24 05:35 Labs: Laboratory Results - last 24 hr 08/15/24 04:34 WBC 23.2 H RBC 3.28 L Hgb 10.6 L Hct 31.2 L MCV 95 MCH 32.3 MCHC 34.0 RDW Std Deviation 53.8 H Plt Count 206 D Neut % (Auto) 88 H Lymph % (Auto) 5 L [place] % (Auto) 5 Eos % (Auto) 0 Baso % (Auto) 0 Neut # (Auto) 20.3 H Lymph # (Auto) 1.1 Andrew # (Auto) 1.2 H Eos # (Auto) 0.1 Baso # (Auto) 0.1 Immature Gran # (Auto) 0.38 H Absolute Nucleated RBC 0.04 H Immature Gran % 2 H Nucleated RBC % 0 Sodium 136 Potassium 3.6 Chloride 96 L Carbon Dioxide 27.6 Anion Gap 12 BUN 37 H Creatinine 4.8 H* D Estim Creat Clear Calc 11.5 L eGFR 10 L* BUN/Creatinine Ratio 8 L Glucose 115 H D Calculated Osmolality 281 Calcium 8.3 Corrected Calcium 9.2 Phosphorus 2.8 Magnesium 2.0 Total Bilirubin 1.1 AST 11 ALT < 7 L Alkaline Phosphatase 81 Total Protein 5.8 Albumin 2.9 L Globulin 2.9 Albumin/Globulin Ratio 1.0 L ABG Interpretation ABG results: 08/08/24 01:28 ABG pH 7.51 H ABG pCO2 34 ABG pO2 108 ABG HCO3 27 H ABG O2 Saturation 99 H ABG Base Excess 4 H Quality Measures Quality Measures sepsis Current suspected stage: ruled out Possible source: skin/soft tissue Blood cultures ordered: yes Antibiotic ordered: Yes Assessment & Plan Assessment Current Active Medications: Generic Name Dose Route Start Last Admin Trade Name Freq PRN Reason Stop Dose Admin Acetaminophen 650 mg 08/08/24 03:24 08/15/24 10:28 Acetaminophen 325 Mg Tablet PO 09/07/24 03:23 650 mg Q6H PRN Administration Fever >100.3 or Pain 1-3 Dextrose 25 ml 08/08/24 04:55 Dextrose 50%-Water Inj 50 Ml Syringe IV 09/07/24 04:54 Q15MIN PRN BG 50-70 responsive npo pt Dextrose 50 ml 08/08/24 04:55 Dextrose 50%-Water Inj 50 Ml Syringe IV 09/07/24 04:54 Q15MIN PRN BG <50 OR BG <70 & pt unresponsive Doxycycline Hyclate 100 mg 08/14/24 09:00 08/14/24 20:30 Doxycycline 100 Mg Tablet PO 08/21/24 08:59 100 mg BID LIU Administration Guaifenesin 200 mg 08/14/24 12:00 08/14/24 20:30 Guaifenesin Syrup 200 Mg/10 Ml Udc PO 09/13/24 11:59 200 mg BID LIU Administration Protocol Cefazolin Sodium 2 gm in 100 mls @ 200 mls/hr 08/11/24 16:00 08/13/24 17:31 Ancef 2gm Ivpb IV 08/22/24 16:29 200 mls/hr [id number]@1600 LIU Administration Melatonin 9 mg 08/12/24 21:00 08/14/24 20:31 Melatonin 3 Mg Tablet PO 09/11/24 20:59 Not Given HS LIU Metoclopramide HCl 10 mg 08/08/24 03:24 Metoclopramide 5 Mg Tablet PO 09/07/24 03:23 Q6H PRN NAUSEA OR VOMITING Midodrine 10 mg 08/09/24 21:00 08/14/24 20:31 Midodrine 5 Mg Tablet PO 09/08/24 20:59 Not Given BID LIU Plan The patient is a 54-year-old female with significant past medical history of ESRD 2/2 hypertension and type 2 diabetes mellitus presented to ED with chief complaint of altered mental status was found to have severe right leg cellulitis. Nephrology consultation was done for further management of ESRD and hemodialysis. #ESRD secondary to hypertensive/diabetic nephropathy Patient seems to be on volume overloaded status, but there has been improvement on anasarca. -We will continue with regularly scheduled hemodialysis session on TTS #Anemia: Likely anemia of chronic disease secondary to ESRD, as there was no bleeding demonstrated in colonoscopy. -Consider iron panel -May consider starting on ferrous sulfate 325 mg p.o. daily #Acute on chronic diarrhea Patient has history of chronic diarrhea, and she has not been able to follow-up with GI for a long time. -Colonoscopy done yesterday, hemorrhoids found on perianal exam, erythematous mucosa in the ascending colon, in the descending colon and the rectum and were biopsied. 1 medium 7 to 9 mm polyp in the proximal ascending colon, removed with hot snare. Moderate diverticulosis in the right colon and in the ascending colon. There was no evidence of diverticular bleeding. Very poor sphincter tone. -GI Dr. Villegas consulted, appreciate further recommendations -tTG-IgA ordered to R/O celiac disease #Sepsis secondary to right leg cellulitis, improved #Cellulitis of right leg Patient was started on antibiotics-on Vanco, Zosyn, switched to cefazolin, still significant erythema noted. Blood cultures so far negative. #Hypotension, improved ? ? ?Likely in the setting of underlying cellulitis. Echocardiogram showed normal ejection fraction. -Continue with midodrine 10 mg twice daily, may increase up to 10 mg 3 times daily if blood pressure remains soft #Diabetes mellitus type II -Accu-Cheks, sliding scale, consistent carb diet #Possible cirrhosis As revealed by abdomen/pelvis CT -As per primary team #PAD -As per primary team Thank you for allowing nephrology team to be a part of patient care. The patient's management plan was discussed with my attending physician MD Ajit Bailey MD, PGY2 Attending Provider Attestation/Addendum Patient seen and examined with resident physician Dr. Wilkerson. Note reviewed, agree with findings and recommendations. patient currently seen on dialysis. Tolerating dialysis without any problems. Hemodialysis for 3 hours, 2K, ultrafiltration 2-3 L, Epogen 6000, no heparin ordered. Plan of care discussed with the dialysis nurse. Please see dialysis flowsheet for further details. Continue with broad-spectrum antibiotics for right lower extremity cellulitis. Patient had a colonoscopy which showed colitis. Biopsies were done.
--- NOTE | 2024-08-15 11:55 | PC.NURSE ---
Patient arrived back to room from dialysis. Patient awake, alert and oriented sitting up eating lunch. Per staffing clerk, Cece, 3L removed at session.
[2024-08-15] MEDS: DOXYCYCLINE 100 MG TABLET PO ×2 (12:16→20:41)
[2024-08-15] MEDS: guaiFENesin SYRUP 200 MG/10 ML UDC PO ×2 (12:16→20:41)
--- NOTE | 2024-08-15 13:39 | ESPR_ITS ---
Documentation for date of: 08/15/24 Subjective Subjective Interval history: Patient evaluated Ascending colon polyp resected histopathology pending colonoscopy findings discussed with the patient Erythema: Biopsies no right colon left colon rectum are pending Patient's diarrhea most likely due to rectal incontinence as anal sphincter tone is quite poor Will start the patient on loperamide 2 mg twice daily standing dose Exam Vital Signs Temp Pulse Resp BP Pulse Ox O2 Del Method O2 Flow Rate 97.8 F 80 15 137/87 H 98 Room Air 2 08/15/24 12:00 08/15/24 12:00 08/15/24 12:00 08/15/24 12:00 08/15/24 12:00 08/15/24 12:00 08/15/24 11:37 FiO2 2 08/13/24 10:46 Objective Labs 08/15/24 04:34 08/15/24 04:34 Labs: Laboratory Results - last 24 hr 08/15/24 04:34 WBC 23.2 H RBC 3.28 L Hgb 10.6 L Hct 31.2 L MCV 95 MCH 32.3 MCHC 34.0 RDW Std Deviation 53.8 H Plt Count 206 D Neut % (Auto) 88 H Lymph % (Auto) 5 L [place] % (Auto) 5 Eos % (Auto) 0 Baso % (Auto) 0 Neut # (Auto) 20.3 H Lymph # (Auto) 1.1 [place] # (Auto) 1.2 H Eos # (Auto) 0.1 Baso # (Auto) 0.1 Immature Gran # (Auto) 0.38 H Absolute Nucleated RBC 0.04 H Immature Gran % 2 H Nucleated RBC % 0 Sodium 136 Potassium 3.6 Chloride 96 L Carbon Dioxide 27.6 Anion Gap 12 BUN 37 H Creatinine 4.8 H* D Estim Creat Clear Calc 11.5 L eGFR 10 L* BUN/Creatinine Ratio 8 L Glucose 115 H D Calculated Osmolality 281 Calcium 8.3 Corrected Calcium 9.2 Phosphorus 2.8 Magnesium 2.0 Total Bilirubin 1.1 AST 11 ALT < 7 L Alkaline Phosphatase 81 Total Protein 5.8 Albumin 2.9 L Globulin 2.9 Albumin/Globulin Ratio 1.0 L Impressions Impression: # Chronic persistent diarrhea due to rectal incontinence due to poor anal sphincter tone Biopsies pending from the colon for any evidence of microscopic colitis Colonic polyp resected from ascending colon biopsies pending Loperamide 2 mg twice daily ABG Interpretation ABG results: 08/08/24 01:28 ABG pH 7.51 H ABG pCO2 34 ABG pO2 108 ABG HCO3 27 H ABG O2 Saturation 99 H ABG Base Excess 4 H Assessment & Plan A&P Narrative # Chronic persistent diarrhea etiology uncertain Differential diagnosis autonomic neuropathy of the GI tract due to underlying longstanding diabetes mellitus Infectious enterocolitis versus inflammatory colitis Plan Complete stool analysis ANCA antibody Fiberoptic colonoscopy with biopsies for further evaluation Clear liquid diet GoLytely Once patient is cleared we will perform colonoscopy with biopsy with intubation of the terminal ileum Other medical problems include End-stage renal disease on hemodialysis MWF Diabetes mellitus type 2 Essential hypertension Peripheral vascular disease right lower extremity worse than left lower extremity Cellulitis lower extremity leading to sepsis on broad-spectrum antibiotics IV Zosyn and vancomycin and now currently on Ancef Thank you once again for the opportunity to participate in care of this patient Time Spent With Patient Time: Total time spent is greater than 50% in coordination of care (as documented) at patient's floor/unit and/or counseling patient:
[2024-08-15] MEDS: LOPERAMIDE 2 MG CAPSULE PO ×2 (14:57→20:41)
[2024-08-15] MEDS: ceFAZolin/D5W 2 GM IV 2 GM/100 ML BAG IV (16:55)
--- NOTE | 2024-08-15 19:49 | ESPR_ITS ---
Documentation for date of: 08/15/24 Subjective Subjective Interval history: No significant overnight events. Morning labs significant for uptrending of WBC. Patient wants to be discharged but in setting of elevated WBC despite being on antibiotics we will hold off to discharge. If patient continues to have uptrending of WBC we might consider further imaging to narrow down source of infection. Exam Vital Signs Temp Pulse Resp BP Pulse Ox O2 Del Method O2 Flow Rate 97.4 F 75 24 H 121/76 100 Room Air 2 08/15/24 16:00 08/15/24 16:00 08/15/24 16:00 08/15/24 16:00 08/15/24 16:00 08/15/24 16:00 08/15/24 11:37 FiO2 2 08/13/24 10:46 Narrative Exam Constitutional Alert, oriented x 3 and comfortable. Middle-age female, appears much older than her age. HEENT Vision grossly intact. Patent nares. Trachea midline Respiratory Chest normal on inspection and decreased AE at bases Cardiovascular S1 and S2 audible, RRR. No murmurs carotid bruit. No gross JVD. Abdominal Soft and non tender to palpation in all quadrants. BS + Genitourinary No bladder tenderness, no flank pain. Normal to palpation Musculoskeletal Extremities tone within normal limits. Trace bilateral lower extremity edema up to knees . Erythematous right lower limb up to knee- improving Neurological CN II - XII grossly intact. Extremity motor and sensation grossly intact. Skin Warm, dry and intact. Left brachiobasilic fistula. Trill felt Psychiatric Patient has flat affect, is cooperative Objective Labs 08/15/24 04:34 08/15/24 04:34 Labs: Laboratory Results - last 24 hr 08/15/24 04:34 WBC 23.2 H RBC 3.28 L Hgb 10.6 L Hct 31.2 L MCV 95 MCH 32.3 MCHC 34.0 RDW Std Deviation 53.8 H Plt Count 206 D Neut % (Auto) 88 H Lymph % (Auto) 5 L [place] % (Auto) 5 Eos % (Auto) 0 Baso % (Auto) 0 Neut # (Auto) 20.3 H Lymph # (Auto) 1.1 [place] # (Auto) 1.2 H Eos # (Auto) 0.1 Baso # (Auto) 0.1 Immature Gran # (Auto) 0.38 H Absolute Nucleated RBC 0.04 H Immature Gran % 2 H Nucleated RBC % 0 Sodium 136 Potassium 3.6 Chloride 96 L Carbon Dioxide 27.6 Anion Gap 12 BUN 37 H Creatinine 4.8 H* D Estim Creat Clear Calc 11.5 L eGFR 10 L* BUN/Creatinine Ratio 8 L Glucose 115 H D Calculated Osmolality 281 Calcium 8.3 Corrected Calcium 9.2 Phosphorus 2.8 Magnesium 2.0 Total Bilirubin 1.1 AST 11 ALT < 7 L Alkaline Phosphatase 81 Total Protein 5.8 Albumin 2.9 L Globulin 2.9 Albumin/Globulin Ratio 1.0 L ABG Interpretation ABG results: 08/08/24 01:28 ABG pH 7.51 H ABG pCO2 34 ABG pO2 108 ABG HCO3 27 H ABG O2 Saturation 99 H ABG Base Excess 4 H Quality Measures Quality Measures sepsis Current suspected stage: sepsis Possible source: skin/soft tissue Blood cultures ordered: yes Antibiotic ordered: Yes Assessment & Plan Assessment Current Active Medications: Generic Name Dose Route Start Last Admin Trade Name Freq PRN Reason Stop Dose Admin Acetaminophen 650 mg 08/08/24 03:24 08/15/24 10:28 Acetaminophen 325 Mg Tablet PO 09/07/24 03:23 650 mg Q6H PRN Administration Fever >100.3 or Pain 1-3 Dextrose 25 ml 08/08/24 04:55 Dextrose 50%-Water Inj 50 Ml Syringe IV 09/07/24 04:54 Q15MIN PRN BG 50-70 responsive npo pt Dextrose 50 ml 08/08/24 04:55 Dextrose 50%-Water Inj 50 Ml Syringe IV 09/07/24 04:54 Q15MIN PRN BG <50 OR BG <70 & pt unresponsive Doxycycline Hyclate 100 mg 08/14/24 09:00 08/15/24 12:16 Doxycycline 100 Mg Tablet PO 08/21/24 08:59 100 mg BID LIU Administration Guaifenesin 200 mg 08/14/24 12:00 08/15/24 12:16 Guaifenesin Syrup 200 Mg/10 Ml Udc PO 09/13/24 11:59 200 mg BID LIU Administration Protocol Cefazolin Sodium 2 gm in 100 mls @ 200 mls/hr 08/11/24 16:00 08/15/24 16:55 Ancef 2gm Ivpb IV 08/22/24 16:29 200 mls/hr [id number]@1600 LIU Administration Loperamide HCl 2 mg 08/15/24 13:45 08/15/24 14:57 Loperamide 2 Mg Capsule PO 08/22/24 13:44 2 mg BID LIU Administration Melatonin 9 mg 08/12/24 21:00 08/14/24 20:31 Melatonin 3 Mg Tablet PO 09/11/24 20:59 Not Given HS LIU Metoclopramide HCl 10 mg 08/08/24 03:24 Metoclopramide 5 Mg Tablet PO 09/07/24 03:23 Q6H PRN NAUSEA OR VOMITING Midodrine 10 mg 08/09/24 21:00 08/15/24 12:20 Midodrine 5 Mg Tablet PO 09/08/24 20:59 Not Given BID LIU Plan Patient is a 54-year-old female with HTN, ESRD on HD MWF, T2DM who was brought to the ED by her son due to altered mental status. Additionally, son states that patient had severe generalized weakness and needed to be carried to her bedroom. Son states that patient's legs have gotten swollen and red. Patient will be admitted for sepsis secondary to RLE cellulitis. # Sepsis, secondary to bilateral lower extremity cellulitis?resolving # DVT ruled out # Peripheral arterial disease # Leukocytosis Patient meets SIRS criteria + source; LA 4.1, Pro-Antwan 120 although may be falsely elevated in setting of ESRD 08/08/2024 blood culture NBG x 48 hours 08/10/2024 blood cultures NBG x 24 hours MRSA nasal screen negative Received 3 days of Zosyn 3.375 g IV twice daily from [08/08 - 08/11] Received 3 days of vancomycin 1 g IV daily from [08/08 - 08/11] Bilateral lower extremity arterial duplex completed on 08/10/2024 findings include: Bilateral peripheral obstructive arterial disease, most severe involving right lower extremity. Bilateral lower extremity venous duplex ultrasound completed on 08/10/2024 ruled out DVT. WBC uptrended to 20.4 from 16.2. Will start on doxycycline 100 Mg IV twice daily Plan: ? Started on doxycycline 100 Mg IV twice daily ? Cefazolin 2 g IV after dialysis sessions for a total of 6 doses for treatment of cellulitis, last dose on 08/22/2024 # Osteomyelitis ruled out Patient complains of right knee pain also. Cellulitis appears persistent CT lower extremity completed on 08/13/24 confirmed Right lower extremity cellulitis. Negative for osteomyelitis #Chronic diarrhea Patient endorses a 3-month history of chronic diarrhea which has led her to being noncompliant with her dialysis sessions. Even when she attends dialysis she usually cuts the sessions short due to diarrhea. DDx: Microscopic colitis, IBS, IBD Plan: - Pending ANCA, stool for calprotectin and WBCs ? For colonoscopy once cleared as per GI recommendations ? GI, Dr. Villegas consulted. Appreciate recommendations #Hypokalemia #Hypophosphatemia K 3.3 and Phos 2.3. Patient repleted with 1 packet Neutra-Phos and KCl 20 mEq IV x 1 #Insomnia Patient has history of altered mental status on admission. Please avoid antihistamines, benzos, antipsychotics. Plan: ? Continue melatonin 9 Mg p.o. at bedtime #ESRD on HD, TTS # Chronic systolic heart failure with preserved ejection fraction [55%] BNP >3280 with edema noted Transthoracic echocardiogram completed on 08/08/2024 findings include: Normal LV size. Hypokinetic anterior septal wall motion. Estimated EF 55 %. RV is mildly dilated with moderately decreased systolic function. Estimated RVSP, 47mmHg. RAP 15. Mild MR. Moderate TR. Last HD session on 08/13/2024 Plan: ? For HD as per nephrology, her regular schedule Saturday, , Saturday. #Thrombocytopenia On admission plt 151 ---> 96 ---> 80 ---> 85 --->124 Etiology: ESRD, heparin use 4 HTS score 1 point; low probability of heparin-induced thrombocytopenia Plan: ? Continue holding heparin for now in light of thrombocytopenia. #Acute metabolic encephalopathy- resolved Likely secondary to sepsis from cellulitis and/or Tamiflu administration. Patient given Tamiflu 75mg BID on 08/02/24, which was not renally dosed. Head CT negative for hemorrhage. Per son, patient is not back to her baseline, as she generally is very talkative and is A&O x 3. #Influenza B+ - resolved Tested postive on 08/02/24. Unsure if patient took dose BID since 08/02/24. Gave a x1 order of Tamiflu 30mg #NSTEMI, likely type II Denies any chest pain at this time; likely secondary to sepsis Troponin 0.553, continue to trend until delta noted # Mild transaminitis?resolved # Hyperbilirubinemia T. bili 1.6 ---> 2.3, AST 138 ---> 32, ALT 26 and ALP 71 # Essential HTN Patient takes Lasix at home BP stable at this time, will hold off on antihypertensives for now #History of T2DM 08/10/2019 HbA1c 7.1% Blood glucose range controlled between 140s-180s on diet Plan: ? Continue low consistent carb diet Health maintenance: Disposition: Pending colonoscopy. Anticipate discharge within next 24 to 48 hours Diet: Renal Lines: pIVs GI Prophylaxis: None Thrombo Prophylaxis: None Code status: FULL CODE This patient care was discussed with my attending Dr. Robert Rao MD PGY-2 Disclaimer: Minor errors in sap bw consultant may be present since this note was dictated by speech recognition software.
[2024-08-16] VITALS (9 sets, daily range): BP systolic 112–160; BP diastolic 54–78; PULSE 76–107; RESP 14–94; TEMP 36.3–37.1; O2SAT 95–98; BMI 29.4
[2024-08-16] MEDS: oxyCODONE/APAP 5/325 TABLET 1 TAB PO (04:31)
[2024-08-16 06:54] LABS: Magnesium 1.8 mg/dL (1.6-2.6)
[2024-08-16 07:22] LABS: Basophils # (Auto) 0.1 Thou/mm3 (0.0-0.2); Basophils % (Auto) 0 % (0-2.5); Eosinophils % (Auto) 0 % (0-10); Hematocrit 31.1 % (36.0-46.0); Hemoglobin 10.4 g/dL (12.0-16.0); Immature Granulocytes % (Auto) 2 % (0-0); Immature Granulocytes Auto 0.42 Thou/mm3 (0.00-0.00); Lymphocytes # (Auto) 0.9 Thou/mm3 (1.0-4.8); Lymphocytes % (Auto) 4 % (10-50); Mean Corpuscular HGB Conc 33.4 g/dl (31.0-37.0); Mean Corpuscular Hemoglobin 32.3 pg (25.0-35.0); Mean Corpuscular Volume 97 fL (80-100); Monocytes # (Auto) 1.2 Thou/mm3 (0.0-0.8); Monocytes % (Auto) 5 % (0-12); Neutrophils # (Auto) 20.7 Thou/mm3 (1.8-7.7); Neutrophils % (Auto) 89 % (37-80); Nucleated Red Blood Cell % 0 /100 WBC (0); Platelet Count 190 Thou/mm3 (140-440); RDW Standard Deviation 54.5 fL (36.4-46.3); Red Blood Count 3.22 Miln/mm3 (4.00-5.20); White Blood Count 23.3 Thou/mm3 (3.6-11.0)
[2024-08-16 07:48] LABS: Alanine Aminotransferase < 7 U/L (10-49); Albumin, Serum 2.7 gm/dL (3.5-5.0); Alkaline Phosphatase 80 U/L (46-116); Anion Gap 9 (7-16); Aspartate Amino Transferase 12 U/L (0-34); BUN/Creatinine Ratio 7 Ratio (12-20); Bilirubin,Total 1.2 mg/dL (0.3-1.2); Blood Urea Nitrogen 29 mg/dL (9-23); Calcium 8.1 mg/dL (8.3-10.6); Calcium (Corrected) 9.1 mg/dL (8.5-10.1); Carbon Dioxide 28.9 mMol/L (20.0-31.0); Chloride 96 mMol/L (98-107); Creatinine (Component) 3.9 mg/dL (0.6-1.3); Globulin 2.8 gm/dL (2.3-3.5); Glucose 136 mg/dL (74-106); Osmolality,Calculated 276 (275-295); Potassium 4.2 mMol/L (3.4-5.1); Sodium 134 mMol/L (136-145); Total Protein 5.5 gm/dL (5.7-8.2); eGFR 13 See Note
[2024-08-16] MEDS: guaiFENesin SYRUP 200 MG/10 ML UDC PO ×2 (09:28→20:46)
[2024-08-16] MEDS: LOPERAMIDE 2 MG CAPSULE PO ×2 (09:28→20:45)
[2024-08-16] MEDS: DOXYCYCLINE 100 MG TABLET PO ×2 (09:28→20:45)
--- NOTE | 2024-08-16 09:54 | XR_ITS ---
Examination: CT abdomen with intravenous contrast CT pelvis with intravenous contrast 2-D coronal reconstructions 2-D sagittal reconstructions Date and time of exam:August 16, 2024 1027 hrs. Indications: Abdominal pain and swelling beginning 2 days ago, renal failure patient, sepsis. CTDI: vol (mGy) 10.3 DLP: (mGycm) 562 Technique: Multiple axial sections of the abdomen and pelvis have been obtained. 64 slice high-resolution scanner used. 3 mm axial sections have been obtained, post intravenous injection 60 cc Isovue-[id number] 2-D sagittal, coronal reconstructions obtained. Low dose protocols were performed. One or more of the following dose reduction techniques were used; automated exposure control, adjustment of the mA and/or KV according to patient size, use of iterative reconstruction technique. Findings: Mild to moderate enlargement cardiac contour Bibasilar pneumonia with small to moderate pleural effusions Cirrhosis versus primary hepatocellular disease, liver is irregular in contour Fluid throughout the abdomen Gallbladder wall is thickened but again the patient has ascites Anasarca Spleen is not enlarged No pancreatic mass Atrophic kidneys with significant parenchymal scar formation and renal arterial calcification Aorta normal size No bowel obstruction Anteverted uterus, atrophic Urinary bladder wall thickening up to 15 mm Significant osteopenia Impression: Bibasilar pneumonia Cirrhosis versus primary hepatocellular disease Mild to moderate ascites Anasarca Atrophic kidneys, no hydronephrosis Pronounced thickening of urinary bladder wall, cystitis included in the differential
--- NOTE | 2024-08-16 10:05 | ESPR_ITS ---
<Statement entered by Db Iqbal MD - 08/17/24 16:30> Agree with plan and examination finding on the note below. Patient seen and examined at bedside today. Labs and imaging reviewed. Patient care discussed with my attending Dr. Jones and co-resident . Documentation for date of: 08/16/24 Subjective Subjective Interval history: Patient was seen and examined at dialysis unit this AM. Patient had no overnight events. Patient tolerating on clear liquid diet, adequate urine output and mentation is at baseline. Patient endorses improvement of her right foot pain Colonoscopy completed on 08/14/2024 findings include: Hemorrhoids, poor sphincter tone. Patchy area of mildly erythematous mucosa in ascending colon, descending colon and rectum. Biopsies taken. 7-9 mm polyp found in proximal ascending colon. Polyp was sessile and removed with hot snare. A few small mounted diverticula in sigmoid and descending colon. WBC uptrended to 23.3 from 23.2. Exam Vital Signs Temp Pulse Resp BP Pulse Ox O2 Del Method O2 Flow Rate 97.8 F 81 17 112/54 L 95 Room Air 2 08/16/24 08:00 08/16/24 09:28 08/16/24 08:00 08/16/24 09:28 08/16/24 08:00 08/16/24 08:00 08/15/24 11:37 FiO2 2 08/13/24 10:46 Narrative Exam Constitutional Alert, oriented x 3 and comfortable. Middle-age female, appears much older than her age. HEENT Vision grossly intact. Patent nares. Trachea midline Respiratory Chest normal on inspection and decreased AE at bases Cardiovascular S1 and S2 audible, RRR. No murmurs carotid bruit. No gross JVD. Abdominal Soft and non tender to palpation in all quadrants. BS + Genitourinary No bladder tenderness, no flank pain. Normal to palpation Musculoskeletal Extremities tone within normal limits. Trace bilateral lower extremity edema up to knees . Erythematous right lower limb up to knee, warm to touch- improving Neurological CN II - XII grossly intact. Extremity motor and sensation grossly intact. Skin Warm, dry and intact. Left brachiobasilic fistula. Trill felt Psychiatric Patient has flat affect, is cooperative Objective Labs 08/16/24 05:35 08/16/24 05:35 Labs: Laboratory Results - last 24 hr 08/16/24 05:35 WBC 23.3 H RBC 3.22 L Hgb 10.4 L Hct 31.1 L MCV 97 MCH 32.3 MCHC 33.4 RDW Std Deviation 54.5 H Plt Count 190 Neut % (Auto) 89 H Lymph % (Auto) 4 L [place] % (Auto) 5 Eos % (Auto) 0 Baso % (Auto) 0 Neut # (Auto) 20.7 H Lymph # (Auto) 0.9 L [place] # (Auto) 1.2 H Eos # (Auto) 0.0 Baso # (Auto) 0.1 Immature Gran # (Auto) 0.42 H Absolute Nucleated RBC 0.00 Immature Gran % 2 H Nucleated RBC % 0 Sodium 134 L Potassium 4.2 D Chloride 96 L Carbon Dioxide 28.9 Anion Gap 9 BUN 29 H Creatinine 3.9 H D Estim Creat Clear Calc 14.0 L eGFR 13 L* BUN/Creatinine Ratio 7 L Glucose 136 H Calculated Osmolality 276 Calcium 8.1 L Corrected Calcium 9.1 Magnesium 1.8 Total Bilirubin 1.2 AST 12 ALT < 7 L Alkaline Phosphatase 80 Total Protein 5.5 L Albumin 2.7 L Globulin 2.8 Albumin/Globulin Ratio 1.0 L ABG Interpretation ABG results: 08/08/24 01:28 ABG pH 7.51 H ABG pCO2 34 ABG pO2 108 ABG HCO3 27 H ABG O2 Saturation 99 H ABG Base Excess 4 H Quality Measures Quality Measures sepsis Current suspected stage: ruled out Possible source: skin/soft tissue Blood cultures ordered: yes Antibiotic ordered: Yes Assessment & Plan Assessment Current Active Medications: Generic Name Dose Route Start Last Admin Trade Name Redq PRN Reason Stop Dose Admin Acetaminophen 650 mg 08/08/24 03:24 08/15/24 10:28 Acetaminophen 325 Mg Tablet PO 09/07/24 03:23 650 mg Q6H PRN Administration Fever >100.3 or Pain 1-3 Dextrose 25 ml 08/08/24 04:55 Dextrose 50%-Water Inj 50 Ml Syringe IV 09/07/24 04:54 Q15MIN PRN BG 50-70 responsive npo pt Dextrose 50 ml 08/08/24 04:55 Dextrose 50%-Water Inj 50 Ml Syringe IV 09/07/24 04:54 Q15MIN PRN BG <50 OR BG <70 & pt unresponsive Doxycycline Hyclate 100 mg 08/14/24 09:00 08/16/24 09:28 Doxycycline 100 Mg Tablet PO 08/21/24 08:59 100 mg BID LIU Administration Guaifenesin 200 mg 08/14/24 12:00 08/16/24 09:28 Guaifenesin Syrup 200 Mg/10 Ml Udc PO 09/13/24 11:59 200 mg BID LIU Administration Protocol Cefazolin Sodium 2 gm in 100 mls @ 200 mls/hr 08/11/24 16:00 08/15/24 16:55 Ancef 2gm Ivpb IV 08/22/24 16:29 200 mls/hr TUTHSA@1600 LIU Administration Loperamide HCl 2 mg 08/15/24 13:45 08/16/24 09:28 Loperamide 2 Mg Capsule PO 08/22/24 13:44 2 mg BID LIU Administration Melatonin 9 mg 08/12/24 21:00 08/15/24 20:29 Melatonin 3 Mg Tablet PO 09/11/24 20:59 Not Given HS LIU Metoclopramide HCl 10 mg 08/08/24 03:24 Metoclopramide 5 Mg Tablet PO 09/07/24 03:23 Q6H PRN NAUSEA OR VOMITING Midodrine 10 mg 08/09/24 21:00 08/16/24 09:28 Midodrine 5 Mg Tablet PO 09/08/24 20:59 Not Given BID LIU Plan Patient is a 54-year-old female with HTN, ESRD on HD MWF, T2DM who was brought to the ED by her son due to altered mental status. Additionally, son states that patient had severe generalized weakness and needed to be carried to her bedroom. Son states that patient's legs have gotten swollen and red. Patient will be admitted for sepsis secondary to RLE cellulitis. # Right lower extremity cellulitis # Sepsis?ruled out # DVT ruled out # Peripheral arterial disease # Leukocytosis Patient meets SIRS criteria + source; LA 4.1, Pro-Antwan 120 although may be falsely elevated in setting of ESRD 08/08/2024 blood culture NBG x 48 hours 08/10/2024 blood cultures NBG x 24 hours MRSA nasal screen negative Patient came in and found to have 2 or more SIRS criteria and was evaluated for sepsis. However, based upon further work-up, sepsis was ruled out. Received 3 days of Zosyn 3.375 g IV twice daily from [08/08 - 08/11] Received 3 days of vancomycin 1 g IV daily from [08/08 - 08/11] Bilateral lower extremity arterial duplex completed on 08/10/2024 findings include: Bilateral peripheral obstructive arterial disease, most severe involving right lower extremity. Bilateral lower extremity venous duplex ultrasound completed on 08/10/2024 ruled out DVT. WBC uptrended to 23.3 from 23.2. Plan: ? Continue doxycycline 100 Mg IV twice daily started on [08/14? ? Cefazolin 2 g IV after dialysis sessions for a total of 6 doses for treatment of cellulitis, last dose on 08/22/2024 # Osteomyelitis ruled out Patient complains of right knee pain also. Cellulitis appears persistent CT lower extremity completed on 08/13/24 confirmed Right lower extremity cellulitis. Negative for osteomyelitis #Chronic diarrhea #Decreased anal sphincter tone Patient endorses a 3-month history of chronic diarrhea which has led her to being noncompliant with her dialysis sessions. Even when she attends dialysis she usually cuts the sessions short due to diarrhea. DDx: Microscopic colitis, IBS, IBD Colonoscopy completed on 08/14/2024 findings include: Hemorrhoids, poor sphincter tone. Patchy area of mildly erythematous mucosa in ascending colon, descending colon and rectum. Biopsies taken. 7-9 mm polyp found in proximal ascending colon. Polyp was sessile and removed with hot snare. A few small mounted diverticula in sigmoid and descending colon. Stool for WBCs negative Plan: - Pending ANCA, stool for calprotectin ? Continue loperamide 2 Mg p.o. twice daily as per GI recommendations ? Follow-up with PCP as outpatient for results of biopsies from colonoscopy ? GI, Dr. Villegas consulted. Appreciate recommendations #Hypokalemia - resolved #Hypophosphatemia - resolved K 3.3 ---> 4.2 and Phos 2.3 ---> 2.8 #Insomnia Patient has history of altered mental status on admission. Please avoid antihistamines, benzos, antipsychotics. Plan: ? Continue melatonin 9 Mg p.o. at bedtime #ESRD on HD, TTS # Chronic systolic heart failure with preserved ejection fraction [55%] BNP >3280 with edema noted Transthoracic echocardiogram completed on 08/08/2024 findings include: Normal LV size. Hypokinetic anterior septal wall motion. Estimated EF 55 %. RV is mildly dilated with moderately decreased systolic function. Estimated RVSP, 47mmHg. RAP 15. Mild MR. Moderate TR. Last HD session on 08/15/2024 Plan: ? For HD as per nephrology, her regular schedule Saturday, , Saturday. #Thrombocytopenia - resolved On admission plt 151 ---> 96 ---> 80 ---> 85 --->124 ---> 190 Etiology: ESRD, heparin use 4 HTS score 1 point; low probability of heparin-induced thrombocytopenia Plan: ? Continue holding heparin for now in light of thrombocytopenia. #Acute metabolic encephalopathy- resolved Likely secondary to sepsis from cellulitis and/or Tamiflu administration. Patient given Tamiflu 75mg BID on 08/02/24, which was not renally dosed. Head CT negative for hemorrhage. Per son, patient is not back to her baseline, as she generally is very talkative and is A&O x 3. #Influenza B+ - resolved Tested postive on 08/02/24. Unsure if patient took dose BID since 08/02/24. Gave a x1 order of Tamiflu 30mg #NSTEMI, likely type II Denies any chest pain at this time; likely secondary to sepsis Troponin 0.553 # Mild transaminitis?resolved # Hyperbilirubinemia T. bili 1.6 ---> 2.3, AST 138 ---> 32, ALT 26 and ALP 71 # Essential HTN Patient takes Lasix at home BP stable at this time, will hold off on antihypertensives for now #History of T2DM 08/10/2019 HbA1c 7.1% Blood glucose range controlled between 140s-180s on diet Plan: ? Continue low consistent carb diet Health maintenance: Disposition: IV antibiotics for cellulitis. Anticipate discharge within next 24 to 48 hours Diet: Renal, 1500 cc fluid restriction Lines: pIVs GI Prophylaxis: None Thrombo Prophylaxis: None Code status: FULL CODE Plan of care discussed with Attending Dr. Jones and PGY3 Dr. Farida Alvarado MD PGY 1
[2024-08-16 10:21] LABS: HCG,Qualitative Serum Negative
--- NOTE | 2024-08-16 14:07 | PD.IMPROG ---
Documentation for date of: 08/16/24 Subjective Subjective Interval history: Patient evaluated Some improvement in diarrhea started on loperamide 2 mg 1 twice daily standing order Exam Vital Signs Temp Pulse Resp BP Pulse Ox O2 Del Method O2 Flow Rate 97.9 F 77 19 126/67 98 Room Air 2 08/16/24 12:00 08/16/24 12:00 08/16/24 12:00 08/16/24 12:00 08/16/24 12:00 08/16/24 12:00 08/15/24 11:37 FiO2 2 08/13/24 10:46 Objective Labs 08/16/24 05:35 08/16/24 05:35 Labs: Laboratory Results - last 24 hr 08/16/24 05:35 WBC 23.3 H RBC 3.22 L Hgb 10.4 L Hct 31.1 L MCV 97 MCH 32.3 MCHC 33.4 RDW Std Deviation 54.5 H Plt Count 190 Neut % (Auto) 89 H Lymph % (Auto) 4 L [place] % (Auto) 5 Eos % (Auto) 0 Baso % (Auto) 0 Neut # (Auto) 20.7 H Lymph # (Auto) 0.9 L [place] # (Auto) 1.2 H Eos # (Auto) 0.0 Baso # (Auto) 0.1 Immature Gran # (Auto) 0.42 H Absolute Nucleated RBC 0.00 Immature Gran % 2 H Nucleated RBC % 0 Sodium 134 L Potassium 4.2 D Chloride 96 L Carbon Dioxide 28.9 Anion Gap 9 BUN 29 H Creatinine 3.9 H D Estim Creat Clear Calc 14.0 L eGFR 13 L* BUN/Creatinine Ratio 7 L Glucose 136 H Calculated Osmolality 276 Calcium 8.1 L Corrected Calcium 9.1 Magnesium 1.8 Total Bilirubin 1.2 AST 12 ALT < 7 L Alkaline Phosphatase 80 Total Protein 5.5 L Albumin 2.7 L Globulin 2.8 Albumin/Globulin Ratio 1.0 L HCG, Qual Negative Impressions Impression: # Diarrhea most likely rectal incontinence due to poor intersphincteric tone No evidence of inflammatory bowel disease biopsies pending eval for microscopic colitis Plan Continue current management ABG Interpretation ABG results: 08/08/24 01:28 ABG pH 7.51 H ABG pCO2 34 ABG pO2 108 ABG HCO3 27 H ABG O2 Saturation 99 H ABG Base Excess 4 H Assessment & Plan A&P Narrative # Chronic persistent diarrhea etiology uncertain Differential diagnosis autonomic neuropathy of the GI tract due to underlying longstanding diabetes mellitus Infectious enterocolitis versus inflammatory colitis Plan Complete stool analysis ANCA antibody Fiberoptic colonoscopy with biopsies for further evaluation Clear liquid diet GoLytely Once patient is cleared we will perform colonoscopy with biopsy with intubation of the terminal ileum Other medical problems include End-stage renal disease on hemodialysis MWF Diabetes mellitus type 2 Essential hypertension Peripheral vascular disease right lower extremity worse than left lower extremity Cellulitis lower extremity leading to sepsis on broad-spectrum antibiotics IV Zosyn and vancomycin and now currently on Ancef Thank you once again for the opportunity to participate in care of this patient Time Spent With Patient Time: Total time spent is greater than 50% in coordination of care (as documented) at patient's floor/unit and/or counseling patient:
--- NOTE | 2024-08-16 14:22 | PD.NEPHPROG ---
Documentation for date of: 08/16/24 Subjective Subjective Interval history: Ms. Aguilar is a 54-year-old lady with extensive past medical history of uncontrolled hypertension and diabetes for many years ended up on dialysis 2 years ago under my care and has been coming to dialysis treatments on TTS (noncompliant with treatments due to loose stools) was admitted to the emergency department brought by the son with generalized weakness and significant right leg edema which is going on for the last 3 days. Patient apparently came to the ED last week and diagnosed with flu and was given Tamiflu. I saw her at the dialysis unit on and emphasize compliance. Her son is also on dialysis and was recently switched from MWF to TTS sessions. Hope she will be compliant. In the emergency department as she was having fever of 105, WBC 10.2, pH 7.51, lactic acid 4.1, LFTs were elevated, LDH 594, creatinine 6.9, BNP greater than 3280, Pro-Antwan 120, troponin 0.5. Urinalysis shows blood and protein with glucose. Chest x-ray showed fluid overload, head CT negative. Abdominal CT showed liver cirrhosis, pulmonary edema Patient denies any chest pain, nausea/vomiting, recent trauma or bug bite. Patient does walk with shoes and socks at home. Meds: Lomotil as needed, Sensipar 30 mg daily, Xphozah 30 mg, Lasix 40 mg daily, Cincalet, sevelamer carbonate 3 times daily Social history: Patient denies any smoking, alcohol use or illicit drug use. Patient will be admitted for sepsis secondary to RLE cellulitis. Renal consultation requested for need for dialysis. Patient currently seen on dialysis. 08/09/2024 patient currently seen in telemetry. Still having some pain in the right lower extremities at the site of extensive cellulitis. Edema tad better after dialysis although erythema still persist. Currently on Zosyn, Vanco. Denies any chest pain. Blood pressure 99/50, heart rate 82. WBC 13.7, hemoglobin 12.1. Platelets 128. Sodium 138, potassium 3.6, bicarbonate 31.2, BUN 30, creatinine 4.9, calcium 8.8, AST 111, total bilirubin 1.5, troponin 0.4, albumin 2.4, Echocardiogram showed ejection fraction 55%. 08/16/2024 patient currently seen in telemetry. Resting comfortably. Admitted with a significant rt lower extremity cellulitis. White count still remains elevated. Complaining of abdominal discomfort and bulging on the left side although it looks like there is abdominal wall edema.CT abdomen showed liver cirrhosis and significant anasarca. Review of Systems Review of Systems Narrative Review of Systems: CONSTITUTIONAL: Patient c/o weakness, fever, chills. HEENT: Denies any visual disturbances or hearing problems. CARDIOVASCULAR: Patient denies any chest pain.shortness of breath. c/o swelling in the lower extremities. PULMONARY: Denies any chest pain or shortness of breath GASTROINTESTINAL: Complaining of abdominal discomfort GENITOURINARY: Patient denies any urinary symptoms of burning or frequency or hematuria, denies any form in the urine. SKIN: +++Erythema in the lower extremity right side MUSCULOSKELETAL: Patient complaining of gait imbalance from leg weakness NEUROLOGICAL: Denies any neurological problems of strokes, seizures or confusion. Denies any memory problems. PSYCHIATRIC: Denies any depression or anxiety. LYMPHATICS : No lymphadenopathy Exam Vital Signs Temp Pulse Resp BP Pulse Ox O2 Del Method O2 Flow Rate 36.3 C 86 18 160/78 H 98 Room Air 2 08/16/24 16:00 08/16/24 20:40 08/16/24 16:00 08/16/24 20:40 08/16/24 16:00 08/16/24 16:00 08/15/24 11:37 FiO2 2 08/13/24 10:46 Narrative Exam General: No acute distress, Alert and Oriented x 3 HEENT: Moist mucous membranes, oropharynx clear Neck: Supple, No masses, No JVD CVS: S1S2 Regular rate and rhythm, No murmurs, rubs or gallops Lungs: Clear to auscultation with no accessory use, no wheeze no rhonchi Abd: Soft, NT/ND, +BS, no organomegaly Anasarca noted with tense abdominal wall and thigh edema Ext: 2+ BL LL pitting edema, right lower leg erythema improving, peripheral arteries barely palpable on bilateral lower limb extremities Skin: No rash Psych: Appropriate mood and affect Objective Labs 08/17/24 05:33 08/17/24 05:33 Labs: Laboratory Results - last 24 hr 08/16/24 05:35 WBC 23.3 H RBC 3.22 L Hgb 10.4 L Hct 31.1 L MCV 97 MCH 32.3 MCHC 33.4 RDW Std Deviation 54.5 H Plt Count 190 Neut % (Auto) 89 H Lymph % (Auto) 4 L [place] % (Auto) 5 Eos % (Auto) 0 Baso % (Auto) 0 Neut # (Auto) 20.7 H Lymph # (Auto) 0.9 L [place] # (Auto) 1.2 H Eos # (Auto) 0.0 Baso # (Auto) 0.1 Immature Gran # (Auto) 0.42 H Absolute Nucleated RBC 0.00 Immature Gran % 2 H Nucleated RBC % 0 Sodium 134 L Potassium 4.2 D Chloride 96 L Carbon Dioxide 28.9 Anion Gap 9 BUN 29 H Creatinine 3.9 H D Estim Creat Clear Calc 14.0 L eGFR 13 L* BUN/Creatinine Ratio 7 L Glucose 136 H Calculated Osmolality 276 Calcium 8.1 L Corrected Calcium 9.1 Magnesium 1.8 Total Bilirubin 1.2 AST 12 ALT < 7 L Alkaline Phosphatase 80 Total Protein 5.5 L Albumin 2.7 L Globulin 2.8 Albumin/Globulin Ratio 1.0 L HCG, Qual Negative ABG Interpretation ABG results: 08/08/24 01:28 ABG pH 7.51 H ABG pCO2 34 ABG pO2 108 ABG HCO3 27 H ABG O2 Saturation 99 H ABG Base Excess 4 H Assessment & Plan Assessment and plan (1) Anemia: Status: Acute Additional Assessment & Plan Additional Plan: 1) 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 ? ? Assessment and plan: Patient seems to have anasarca/edema-will plan for dialysis extra tomorrow. Her usual scheduled dialysis TTS. (2) Anemia: ?Status:?Chronic ? ? ? Assessment and plan: Monitor closely (3) sepsis secondary to right leg cellulitis ?Status:?Acute ? ? ? Assessment and plan: continue on antibiotics. Sepsis resolved. White count still elevated. Blood cultures so far negative. (4) Hypoenson ?Status:?Chronic ? ? ? Assessment and plan: Question related to underlying sepsis. Echocardiogram showed normal ejection fraction. Will add midodrine. (5) diabetes mellitus: ?Status:? chronic ? ? ? Assessment and plan: Accu-Cheks, sliding scale, consistent carb low 6) noted elevation in liver enzymes question related to cirrhosis per CT Diarrhea-probably related to colitis-patient received a colonoscopy. Biopsies pending. Quality - progress note Quality Measures Quality Measures: VTE prophylaxis Reason for Continued Stay Reason for Continued Stay: further monitoring
[2024-08-16] MEDS: MELATONIN 3 MG TABLET 9 MG PO (20:45)
[2024-08-17] VITALS (26 sets, daily range): BP systolic 107–168; BP diastolic 61–82; PULSE 67–89; RESP 14–100; TEMP 36–36.6; O2SAT 91–100; BMI 29.4
[2024-08-17 05:54] LABS: Basophils # (Auto) 0.1 Thou/mm3 (0.0-0.2); Basophils % (Auto) 0 % (0-2.5); Eosinophils % (Auto) 0 % (0-10); Hematocrit 30.9 % (36.0-46.0); Hemoglobin 10.3 g/dL (12.0-16.0); Immature Granulocytes % (Auto) 2 % (0-0); Immature Granulocytes Auto 0.49 Thou/mm3 (0.00-0.00); Lymphocytes # (Auto) 1.1 Thou/mm3 (1.0-4.8); Lymphocytes % (Auto) 4 % (10-50); Mean Corpuscular HGB Conc 33.3 g/dl (31.0-37.0); Mean Corpuscular Hemoglobin 31.8 pg (25.0-35.0); Mean Corpuscular Volume 95 fL (80-100); Monocytes # (Auto) 1.3 Thou/mm3 (0.0-0.8); Monocytes % (Auto) 5 % (0-12); Neutrophils # (Auto) 20.9 Thou/mm3 (1.8-7.7); Neutrophils % (Auto) 88 % (37-80); Nucleated Red Blood Cell % 0 /100 WBC (0); Platelet Count 192 Thou/mm3 (140-440); RDW Standard Deviation 55.7 fL (36.4-46.3); Red Blood Count 3.24 Miln/mm3 (4.00-5.20); White Blood Count 23.8 Thou/mm3 (3.6-11.0)
[2024-08-17 06:49] LABS: Giardia Result NOT DETECTED
--- NOTE | 2024-08-17 07:54 | PD.RESDS ---
Planned Discharge Date 08/17/24 DS: Providers Provider Date of admission: 08/08/24 03:24 Primary care physician: Physician No Primary/Family Admitting Provider: Charles Steele MD Attending Provider on Admission: Willem Jones MD Consults: 08/08/24 04:01 Consult to Nephrology Stat Comment: Consulting Provider: Diego Yap 08/11/24 19:25 Referral Wound Care Urgent Comment: ruptured blister right thigh 08/12/24 08:59 Consult to Gastroenterology Routine Comment: Consulting Provider: Parul Villegas Attending Provider on DC: Rio Alvarado MD Discharging Provider: Rio Alvarado MD Hospital Course Hospital Course Hospital course: Patient was seen and examined at dialysis unit this AM. Patient had no overnight events. Patient tolerating on clear liquid diet, adequate urine output and mentation is at baseline. Patient endorses improvement of her right foot pain Colonoscopy completed on 08/14/2024 findings include: Hemorrhoids, poor sphincter tone. Patchy area of mildly erythematous mucosa in ascending colon, descending colon and rectum. Biopsies taken. 7-9 mm polyp found in proximal ascending colon. Polyp was sessile and removed with hot snare. A few small mounted diverticula in sigmoid and descending colon. WBC uptrended to 23.3 from 23.2. Time Spent with Patient Time attestation: Total time spent providing and/or coordinating discharge services: Exam Vital Signs Temp Pulse Resp BP Pulse Ox O2 Del Method O2 Flow Rate 97.8 F 81 20 138/63 H 91 L Room Air 2 08/17/24 04:00 08/17/24 04:00 08/17/24 04:00 08/17/24 04:00 08/17/24 04:00 08/17/24 04:00 08/15/24 11:37 FiO2 2 08/13/24 10:46 Discharge Plan Plan Patient Disposition: HOME (Self Care) Disposition Comment: Tele Care Plan Goals: ? You have been started on a medication cefazolin 2G IV to take after your dialysis sessions. You have 5 more doses, 1 dose after each dialysis session. Last dose on 08/22/2023. - Follow up with your primary care physician within 1 week of discharge. If you do not have a primary care physician, please follow up with the [facility] ([phone]) ? If you experience any new, worsening or persistent symptoms either call your primary doctor, or dial 911 or present to the emergency department. Prescriptions/Referrals Referrals: No Primary/Family,Physician [Primary Care Provider] - Patient/Caregiver Discharge Instructions Print Language: Croatian Stand Alone Forms: Samantha Award Info., Patient Portal Info Letter
[2024-08-17] MEDS: guaiFENesin SYRUP 200 MG/10 ML UDC PO ×2 (08:00→20:05)
[2024-08-17] MEDS: DOXYCYCLINE 100 MG TABLET PO ×2 (08:01→20:09)
[2024-08-17] MEDS: LOPERAMIDE 2 MG CAPSULE PO ×2 (08:01→20:09)
[2024-08-17 08:02] LABS: Alanine Aminotransferase < 7 U/L (10-49); Albumin, Serum 2.9 gm/dL (3.5-5.0); Albumin/Globulin Ratio 0.9 (1.2-2.2); Alkaline Phosphatase 76 U/L (46-116); Anion Gap 10 (7-16); Aspartate Amino Transferase < 10 U/L (0-34); BUN/Creatinine Ratio 8 Ratio (12-20); Bilirubin,Total 1.1 mg/dL (0.3-1.2); Blood Urea Nitrogen 36 mg/dL (9-23); Calcium 8.4 mg/dL (8.3-10.6); Calcium (Corrected) 9.3 mg/dL (8.5-10.1); Carbon Dioxide 26.5 mMol/L (20.0-31.0); Chloride 95 mMol/L (98-107); Creatinine (Component) 4.8 mg/dL (0.6-1.3); Estimated Creatinine Clearance 11.4 mL/min (>60); Globulin 3.2 gm/dL (2.3-3.5); Glucose 95 mg/dL (74-106); Osmolality,Calculated 270 (275-295); Phosphorous 3.5 mg/dL (2.4-5.1); Sodium 131 mMol/L (136-145); Total Protein 6.1 gm/dL (5.7-8.2); eGFR 10 See Note
--- NOTE | 2024-08-17 08:23 | PD.RESPRO ---
Documentation for date of: 08/17/24 Subjective Subjective Interval history: Ms. Aguilar is a 54-year-old lady with extensive past medical history of uncontrolled hypertension and diabetes for many years ended up on dialysis 2 years ago under my care and has been coming to dialysis treatments on TTS (noncompliant with treatments due to loose stools) was admitted to the emergency department brought by the son with generalized weakness and significant right leg edema which is going on for the last 3 days. Patient apparently came to the ED last week and diagnosed with flu and was given Tamiflu. I saw her at the dialysis unit on and emphasize compliance. Her son is also on dialysis and was recently switched from MWF to TTS sessions. Hope she will be compliant. In the emergency department as she was having fever of 105, WBC 10.2, pH 7.51, lactic acid 4.1, LFTs were elevated, LDH 594, creatinine 6.9, BNP greater than 3280, Pro-Antwan 120, troponin 0.5. Urinalysis shows blood and protein with glucose. Chest x-ray showed fluid overload, head CT negative. Abdominal CT showed liver cirrhosis, pulmonary edema Patient denies any chest pain, nausea/vomiting, recent trauma or bug bite. Patient does walk with shoes and socks at home. Meds: Lomotil as needed, Sensipar 30 mg daily, Xphozah 30 mg, Lasix 40 mg daily, Cincalet, sevelamer carbonate 3 times daily Social history: Patient denies any smoking, alcohol use or illicit drug use. Patient will be admitted for sepsis secondary to RLE cellulitis. Renal consultation requested for need for dialysis. Patient currently seen on dialysis. 08/09/2024 patient currently seen in telemetry. Still having some pain in the right lower extremities at the site of extensive cellulitis. Edema tad better after dialysis although erythema still persist. Currently on Zosyn, Vanco. Denies any chest pain. Blood pressure 99/50, heart rate 82. WBC 13.7, hemoglobin 12.1. Platelets 128. Sodium 138, potassium 3.6, bicarbonate 31.2, BUN 30, creatinine 4.9, calcium 8.8, AST 111, total bilirubin 1.5, troponin 0.4, albumin 2.4, Echocardiogram showed ejection fraction 55%. 08/10/2024: The patient was examined and interviewed at the bedside this morning. She still has anasarca, extensive cellulitis of right leg, and was saturating 97% on 1 L NC. Other vitals fairly stable, CR trended up to 17.3, chemistry panel significant for ESRD. The patient had 1 hemodialysis on today, as she still seems to be on volume overload. 08/11/2024: The patient was examined and interviewed at the bedside this morning. She reported doing well. Physical examination was significant for 2-3+ peripheral pitting edema. Still has cellulitis of right leg with erythema. Labs significant for decreasing WBC to 15.1, hemoglobin 11.5 likely dilutional, sodium 131, chloride 93, BUN 53, creatinine 6.3 And total bilirubin trended up to 2.3. The patient will undergo regularly scheduled hemodialysis session today as per TTS schedule. 08/12/2024: The patient was interviewed and examined at the bedside this morning. She reported having diarrhea, which is her chronic problem, and due to which she misses her dialysis frequently. She has not been able to get outpatient GI appointment for a long time. Her vitals are fairly stable count trended down to 14.2, sodium 134, potassium 3.2 was repleted with 20 mEq p.o. KCl, UN 36 and creatinine 4.7 with EGFR 11 consistent with ESRD. And her total bilirubin has been stable at 2.3. The patient has got hemodialysis oevi-od-bolk in last 2 days. The patient will get another session of hemodialysis tomorrow morning again. 08/13/2024: The patient was interviewed and examined at the bedside this morning. She was saturating 97% on room air. Her other vitals were fairly stable. Chemistry panel significant for sodium 132, chloride 93, BUN 45 and creatinine 5.4. Physical exam is still significant for bilateral lower limb edema and right leg cellulitis that has been improving. The patient will undergo regularly scheduled hemodialysis today. 08/14/2024: The patient was interviewed and examined at the bedside this morning again. She reported doing well. She was saturating 97% on room air. Her other vitals are fairly stable. Her white count continuously increasing to 20.4, potassium 3.3, phosphorus 2.3 magnesium 2.1, BUN 27, creatinine 4.1, EGFR 12 consistent with ESRD. Physical exam was significant for 2+ bilateral lower limb pitting edema. She will get another session of dialysis tomorrow. Patient was not clear from [employer] yesterday evening, and colonoscopy was canceled, will be done today. 08/15/2024: The patient was interviewed and examined at the bedside this morning. She reported doing well. Her vitals were fairly stable, saturating 99% on 2 L NC with blood pressure 50/82. Her white count trended up to 23.2 and her right leg erythema seems to be improving. She still has 2+ bilateral lower limb pitting edema. Her renal function consistent with ESRD. Colonoscopy done yesterday, hemorrhoids found on perianal exam, erythematous mucosa in the ascending colon, in the descending colon and the rectum and were biopsied. 1 medium 7 to 9 mm polyp in the proximal ascending colon, removed with hot snare. Moderate diverticulosis in the right colon and in the ascending colon. There was no evidence of diverticular bleeding. Very poor sphincter tone. 08/17/2024: The patient was interviewed and examined at the bedside again this morning. She reported doing well. She was saturating 91% on room air. Her other vitals were stable. Physical examination was significant for pitting edema over her left abdomen likely dependent edema, mild crackles over bibasilar pulmonary region, and 1-2+ lower limb pitting edema. Labs still shows white count of 23.8, sodium trended down to 131, potassium 5.0, BUN 36 and creatinine 4.8 with EGFR 10. The patient will get 1 session of hemodialysis this morning. Nephrology team agrees to give IV antibiotics during hemodialysis sessions as recommended by primary hospitalist team. Exam Vital Signs Temp Pulse Resp BP Pulse Ox O2 Del Method O2 Flow Rate 97.8 F 79 20 128/72 91 L Room Air 2 08/17/24 04:00 08/17/24 07:58 08/17/24 04:00 08/17/24 07:58 08/17/24 04:00 08/17/24 04:00 08/15/24 11:37 FiO2 2 08/13/24 10:46 Narrative Exam General: No acute distress, Alert and Oriented x 3 HEENT: Moist mucous membranes, oropharynx clear Neck: Supple, No masses, No JVD CVS: S1S2 Regular rate and rhythm, No murmurs, rubs or gallops Lungs: Mild bibasilar crackles, no rhonchi or wheeze Abd: Soft, NT/ND, +BS, no organomegaly, left side with 2+ pitting edema Ext: 2+ BL LL pitting edema, right lower leg erythema improving, peripheral arteries barely palpable on bilateral lower limb extremities Skin: No rash Psych: Appropriate mood and affect Objective Labs 08/17/24 05:33 08/17/24 05:33 Labs: Laboratory Results - last 24 hr 08/12/24 08/16/24 08/17/24 04:00 05:35 05:33 WBC 23.8 H RBC 3.24 L Hgb 10.3 L Hct 30.9 L MCV 95 MCH 31.8 MCHC 33.3 RDW Std Deviation 55.7 H Plt Count 192 Neut % (Auto) 88 H Lymph % (Auto) 4 L [place] % (Auto) 5 Eos % (Auto) 0 Baso % (Auto) 0 Neut # (Auto) 20.9 H Lymph # (Auto) 1.1 [place] # (Auto) 1.3 H Eos # (Auto) 0.0 Baso # (Auto) 0.1 Immature Gran # (Auto) 0.49 H Absolute Nucleated RBC 0.00 Immature Gran % 2 H Nucleated RBC % 0 Sodium 131 L Potassium 5.0 D Chloride 95 L Carbon Dioxide 26.5 Anion Gap 10 BUN 36 H Creatinine 4.8 H* D Estim Creat Clear Calc 11.4 L eGFR 10 L* BUN/Creatinine Ratio 8 L Glucose 95 Calculated Osmolality 270 L Calcium 8.4 Corrected Calcium 9.3 Phosphorus 3.5 Magnesium 2.0 Total Bilirubin 1.1 AST < 10 ALT < 7 L Alkaline Phosphatase 76 Total Protein 6.1 Albumin 2.9 L Globulin 3.2 Albumin/Globulin Ratio 0.9 L HCG, Qual Negative Stl Giardia Antigen NOT DETECTED ABG Interpretation ABG results: 08/08/24 01:28 ABG pH 7.51 H ABG pCO2 34 ABG pO2 108 ABG HCO3 27 H ABG O2 Saturation 99 H ABG Base Excess 4 H Quality Measures Quality Measures sepsis Current suspected stage: ruled out Possible source: skin/soft tissue Blood cultures ordered: yes Antibiotic ordered: Yes Assessment & Plan Assessment Current Active Medications: Generic Name Dose Route Start Last Admin Trade Name Freq PRN Reason Stop Dose Admin Acetaminophen 650 mg 08/08/24 03:24 08/15/24 10:28 Acetaminophen 325 Mg Tablet PO 09/07/24 03:23 650 mg Q6H PRN Administration Fever >100.3 or Pain 1-3 Dextrose 25 ml 08/08/24 04:55 Dextrose 50%-Water Inj 50 Ml Syringe IV 09/07/24 04:54 Q15MIN PRN BG 50-70 responsive npo pt Dextrose 50 ml 08/08/24 04:55 Dextrose 50%-Water Inj 50 Ml Syringe IV 09/07/24 04:54 Q15MIN PRN BG <50 OR BG <70 & pt unresponsive Doxycycline Hyclate 100 mg 08/14/24 09:00 08/17/24 08:01 Doxycycline 100 Mg Tablet PO 08/21/24 08:59 100 mg BID LIU Administration Guaifenesin 200 mg 08/14/24 12:00 08/17/24 08:00 Guaifenesin Syrup 200 Mg/10 Ml Udc PO 09/13/24 11:59 200 mg BID LIU Administration Protocol Cefazolin Sodium 2 gm in 100 mls @ 200 mls/hr 08/11/24 16:00 08/15/24 16:55 Ancef 2gm Ivpb IV 08/22/24 16:29 200 mls/hr TUTHSA@1600 LIU Administration Loperamide HCl 2 mg 08/15/24 13:45 08/17/24 08:01 Loperamide 2 Mg Capsule PO 08/22/24 13:44 2 mg BID LIU Administration Melatonin 9 mg 08/12/24 21:00 08/16/24 20:45 Melatonin 3 Mg Tablet PO 09/11/24 20:59 9 mg HS LIU Administration Metoclopramide HCl 10 mg 08/08/24 03:24 Metoclopramide 5 Mg Tablet PO 09/07/24 03:23 Q6H PRN NAUSEA OR VOMITING Midodrine 10 mg 08/09/24 21:00 08/17/24 07:58 Midodrine 5 Mg Tablet PO 09/08/24 20:59 Not Given BID LIU Plan The patient is a 54-year-old female with significant past medical history of ESRD 2/2 hypertension and type 2 diabetes mellitus presented to ED with chief complaint of altered mental status was found to have severe right leg cellulitis. Nephrology consultation was done for further management of ESRD and hemodialysis. #ESRD secondary to hypertensive/diabetic nephropathy Patient seems to be on volume overloaded status, but there has been improvement on anasarca. -Patient will get 1 session of hemodialysis today. -We will continue with regularly scheduled hemodialysis session on TTS #Mild hypoosmolar hypervolemic hyponatremia Likely in the setting of fluid overload secondary to ESRD -Patient will get hemodialysis today -We will continue with regularly scheduled hemodialysis sessions on TTS. #Anemia: Likely anemia of chronic disease secondary to ESRD, as there was no bleeding demonstrated in colonoscopy. -Consider iron panel -May consider starting on ferrous sulfate 325 mg p.o. daily #Acute on chronic diarrhea Patient has history of chronic diarrhea, and she has not been able to follow-up with GI for a long time. -Colonoscopy done yesterday, hemorrhoids found on perianal exam, erythematous mucosa in the ascending colon, in the descending colon and the rectum and were biopsied. 1 medium 7 to 9 mm polyp in the proximal ascending colon, removed with hot snare. Moderate diverticulosis in the right colon and in the ascending colon. There was no evidence of diverticular bleeding. Very poor sphincter tone. -GI Dr. Villegas consulted, appreciate further recommendations -tTG-IgA ordered to R/O celiac disease #Sepsis secondary to right leg cellulitis, improved #Cellulitis of right leg Patient was started on antibiotics-on Vanco, Zosyn, switched to cefazolin, still significant erythema noted. Blood cultures so far negative. -Will get IV antibiotics during hemodialysis after discharge #Hypotension, improved ? ? ?Likely in the setting of underlying cellulitis. Echocardiogram showed normal ejection fraction. -Continue with midodrine 10 mg twice daily, may increase up to 10 mg 3 times daily if blood pressure remains soft #Diabetes mellitus type II -Accu-Cheks, sliding scale, consistent carb diet #Possible cirrhosis As revealed by abdomen/pelvis CT -As per primary team #PAD -As per primary team Thank you for allowing nephrology team to be a part of patient care. The patient's management plan was discussed with my attending physician MD Ajit Bailey MD, PGY2 Attending Provider Attestation/Addendum Patient seen and examined with resident physician Dr. Wilkerson. Note reviewed, agree with findings and recommendations. Noted with the [employer] significant abdominal wall and thigh edema. Will give extra session of ultrafiltration today. patient currently seen on dialysis. Tolerating dialysis without any problems. Hemodialysis for 3 hours, sequential ultrafiltration 2-3 L, Epogen 6000, no heparin ordered. Plan of care discussed with the dialysis nurse. Please see dialysis flowsheet for further details. Continue with broad-spectrum antibiotics for right lower extremity cellulitis. Patient will receive Ancef at the dialysis for the next 2 weeks. Spoke to primary team. If patient remains she is going to get her regular scheduled dialysis tomorrow. Patient had a colonoscopy which showed colitis. Biopsies were done.
--- NOTE | 2024-08-17 12:13 | PC.NURSE ---
Per Scot senior treasury consultant, pt. had 3l removed and pressure dressing to come off at 1430. Called to PT lavon to notify of PT eval to be done before discharge.
--- NOTE | 2024-08-17 13:09 | PC.NURSE ---
Called to Dr. Jones to clarify DC orders. to return phone call.
--- NOTE | 2024-08-17 14:01 | PC.NURSE ---
Pt. desatted to 81% while up and working with PT while on [address] Dickson aware. Per PT Alma Delia Pt. is going to ask if Son can take care of her or if she can go to a rehab. Called to Leonor GAMING about this issue to help with DC planning. Dr. zuleta and states intention to speak with attending Dr. Jones about these concerns.
--- NOTE | 2024-08-17 14:51 | PC.SS ---
SS has spoken to bedside nurse, Seema to inform her pt is requiring room air testing to qualify for home O2. SS spoke to patient's dtr in law by phone who states pt has family to care for her at home (son and dtr in law) and they are requesting for pt to return home. Nurse is aware to conact dtr in law for transportation.
--- NOTE | 2024-08-17 14:57 | PC.NURSE ---
Pt. exercised without O2 supplementation and satting at 81%, pt. exercising with O2 supplementation and satting at 82%, pt. resting on RA at 92% oxygen saturation.
--- NOTE | 2024-08-17 15:21 | PC.SS ---
SS has sent DME order for home O2 using [facility]. [facility] from [facility] is contracted with patient's health insurance and they are starting insurance authorization for home O2. Bedside nurse, Seema is aware if [facility] receives insurance authorization and delivers home O2 to bedside pt can dc home. Dtr in law will provide transport.
--- NOTE | 2024-08-17 16:20 | ESPR_ITS ---
<Statement entered by Db Iqbal MD - 08/18/24 17:15> Agree with plan and examination finding on the note below. Patient seen and examined at bedside today. Labs and imaging reviewed. Patient care discussed with my attending Dr. Jones and co-resident Dr. Alvarado. Documentation for date of: 08/17/24 Subjective Subjective Interval history: Patient was seen and examined at dialysis unit this AM. Patient had no overnight events. Patient tolerating on clear liquid diet, adequate urine output and mentation is at baseline. Patient endorses improvement of her right foot pain. Patient scheduled for extra dialysis session today due to abdominal distention WBC uptrended to 23.8 from 23.3. Will recommend hematology consult as outpatient Exam Vital Signs Temp Pulse Resp BP Pulse Ox O2 Del Method O2 Flow Rate 96.8 F 75 23 H 144/67 H 96 Room Air 2 08/17/24 12:06 08/17/24 12:40 08/17/24 12:40 08/17/24 12:06 08/17/24 12:06 08/17/24 08:00 08/15/24 11:37 FiO2 2 08/13/24 10:46 Narrative Exam Constitutional Alert, oriented x 3 and comfortable. Middle-age female, appears much older than her age. HEENT Vision grossly intact. Patent nares. Trachea midline Respiratory Chest normal on inspection and decreased AE at bases Cardiovascular S1 and S2 audible, RRR. No murmurs carotid bruit. No gross JVD. Abdominal Soft and non tender to palpation in all quadrants. BS + Genitourinary No bladder tenderness, no flank pain. Normal to palpation Musculoskeletal Extremities tone within normal limits. Trace bilateral lower extremity edema up to knees . Erythematous right lower limb up to mid tibia, warm to touch- improving Neurological CN II - XII grossly intact. Extremity motor and sensation grossly intact. Skin Warm, dry and intact. Left brachiobasilic fistula. Trill felt Psychiatric Patient has flat affect, is cooperative Objective Labs 08/17/24 05:33 08/17/24 05:33 Labs: Laboratory Results - last 24 hr 08/12/24 08/17/24 04:00 05:33 WBC 23.8 H RBC 3.24 L Hgb 10.3 L Hct 30.9 L MCV 95 MCH 31.8 MCHC 33.3 RDW Std Deviation 55.7 H Plt Count 192 Neut % (Auto) 88 H Lymph % (Auto) 4 L Jones % (Auto) 5 Eos % (Auto) 0 Baso % (Auto) 0 Neut # (Auto) 20.9 H Lymph # (Auto) 1.1 Jones # (Auto) 1.3 H Eos # (Auto) 0.0 Baso # (Auto) 0.1 Immature Gran # (Auto) 0.49 H Absolute Nucleated RBC 0.00 Immature Gran % 2 H Nucleated RBC % 0 Sodium 131 L Potassium 5.0 D Chloride 95 L Carbon Dioxide 26.5 Anion Gap 10 BUN 36 H Creatinine 4.8 H* D Estim Creat Clear Calc 11.4 L eGFR 10 L* BUN/Creatinine Ratio 8 L Glucose 95 Calculated Osmolality 270 L Calcium 8.4 Corrected Calcium 9.3 Phosphorus 3.5 Magnesium 2.0 Total Bilirubin 1.1 AST < 10 ALT < 7 L Alkaline Phosphatase 76 Total Protein 6.1 Albumin 2.9 L Globulin 3.2 Albumin/Globulin Ratio 0.9 L Stl Giardia Antigen NOT DETECTED ABG Interpretation ABG results: 08/08/24 01:28 ABG pH 7.51 H ABG pCO2 34 ABG pO2 108 ABG HCO3 27 H ABG O2 Saturation 99 H ABG Base Excess 4 H Quality Measures Quality Measures sepsis Current suspected stage: ruled out Possible source: skin/soft tissue Blood cultures ordered: yes Antibiotic ordered: Yes Assessment & Plan Assessment Current Active Medications: Generic Name Dose Route Start Last Admin Trade Name Freq PRN Reason Stop Dose Admin Acetaminophen 650 mg 08/08/24 03:24 08/15/24 10:28 Acetaminophen 325 Mg Tablet PO 09/07/24 03:23 650 mg Q6H PRN Administration Fever >100.3 or Pain 1-3 Dextrose 25 ml 08/08/24 04:55 Dextrose 50%-Water Inj 50 Ml Syringe IV 09/07/24 04:54 Q15MIN PRN BG 50-70 responsive npo pt Dextrose 50 ml 08/08/24 04:55 Dextrose 50%-Water Inj 50 Ml Syringe IV 09/07/24 04:54 Q15MIN PRN BG <50 OR BG <70 & pt unresponsive Doxycycline Hyclate 100 mg 08/14/24 09:00 08/17/24 08:01 Doxycycline 100 Mg Tablet PO 08/21/24 08:59 100 mg BID LIU Administration Guaifenesin 200 mg 08/14/24 12:00 08/17/24 08:00 Guaifenesin Syrup 200 Mg/10 Ml Udc PO 09/13/24 11:59 200 mg BID LIU Administration Protocol Cefazolin Sodium 2 gm in 100 mls @ 200 mls/hr 08/11/24 16:00 08/15/24 16:55 Ancef 2gm Ivpb IV 08/22/24 16:29 200 mls/hr TUTHSA@1600 LIU Administration Loperamide HCl 2 mg 08/15/24 13:45 08/17/24 08:01 Loperamide 2 Mg Capsule PO 08/22/24 13:44 2 mg BID LIU Administration Melatonin 9 mg 08/12/24 21:00 08/16/24 20:45 Melatonin 3 Mg Tablet PO 09/11/24 20:59 9 mg HS LIU Administration Metoclopramide HCl 10 mg 08/08/24 03:24 Metoclopramide 5 Mg Tablet PO 09/07/24 03:23 Q6H PRN NAUSEA OR VOMITING Midodrine 10 mg 08/09/24 21:00 08/17/24 07:58 Midodrine 5 Mg Tablet PO 09/08/24 20:59 Not Given BID LIU Plan Patient is a 54-year-old female with HTN, ESRD on HD MWF, T2DM who was brought to the ED by her son due to altered mental status. Additionally, son states that patient had severe generalized weakness and needed to be carried to her bedroom. Son states that patient's legs have gotten swollen and red. Patient will be admitted for sepsis secondary to RLE cellulitis. # Right lower extremity cellulitis # Sepsis?ruled out # DVT ruled out # Peripheral arterial disease # Leukocytosis Patient meets SIRS criteria + source; LA 4.1, Pro-Antwan 120 although may be falsely elevated in setting of ESRD 08/08/2024 blood culture NBG x 48 hours 08/10/2024 blood cultures NBG x 24 hours MRSA nasal screen negative Patient came in and found to have 2 or more SIRS criteria and was evaluated for sepsis. However, based upon further work-up, sepsis was ruled out. Received 3 days of Zosyn 3.375 g IV twice daily from [08/08 - 08/11] Received 3 days of vancomycin 1 g IV daily from [08/08 - 2/4] Bilateral lower extremity arterial duplex completed on 08/10/2024 findings include: Bilateral peripheral obstructive arterial disease, most severe involving right lower extremity. Bilateral lower extremity venous duplex ultrasound completed on 08/10/2024 ruled out DVT. WBC uptrended to 23.8 from 23.3. Will recommend hematology consult as outpatient Plan: ? Continue doxycycline 100 Mg IV twice daily started on [08/14? ? Cefazolin 2 g IV after dialysis sessions for 2 weeks, last dose on 08/29/2024 ? Pending insurance authorization for home oxygen prior to discharge. # Osteomyelitis ruled out Patient complains of right knee pain also. Cellulitis appears persistent CT lower extremity completed on 08/13/24 confirmed Right lower extremity cellulitis. Negative for osteomyelitis #Chronic diarrhea #Decreased anal sphincter tone Patient endorses a 3-month history of chronic diarrhea which has led her to being noncompliant with her dialysis sessions. Even when she attends dialysis she usually cuts the sessions short due to diarrhea. DDx: Microscopic colitis, IBS, IBD Colonoscopy completed on 08/14/2024 findings include: Hemorrhoids, poor sphincter tone. Patchy area of mildly erythematous mucosa in ascending colon, descending colon and rectum. Biopsies taken. 7-9 mm polyp found in proximal ascending colon. Polyp was sessile and removed with hot snare. A few small mounted diverticula in sigmoid and descending colon. Stool for WBCs negative Plan: - Pending ANCA, stool for calprotectin ? Continue loperamide 2 Mg p.o. twice daily as per GI recommendations ? Follow-up with PCP as outpatient for results of biopsies from colonoscopy and autoimmune panel ? GI, Dr. Villegas consulted. Appreciate recommendations #Hypokalemia - resolved #Hypophosphatemia - resolved K 3.3 ---> 4.2 and Phos 2.3 ---> 2.8 #Insomnia Patient has history of altered mental status on admission. Please avoid antihistamines, benzos, antipsychotics. Plan: ? Continue melatonin 9 Mg p.o. at bedtime #ESRD on HD, TTS # Chronic systolic heart failure with preserved ejection fraction [55%] BNP >3280 with edema noted Transthoracic echocardiogram completed on 08/08/2024 findings include: Normal LV size. Hypokinetic anterior septal wall motion. Estimated EF 55 %. RV is mildly dilated with moderately decreased systolic function. Estimated RVSP, 47mmHg. RAP 15. Mild MR. Moderate TR. Last HD session on 08/17/2024 Plan: ? For HD as per nephrology, her regular schedule Saturday, , Saturday. #Thrombocytopenia - resolved On admission plt 151 ---> 96 ---> 80 ---> 85 --->124 ---> 192 Etiology: ESRD, heparin use 4 HTS score 1 point; low probability of heparin-induced thrombocytopenia Plan: ? Continue holding heparin for now in light of thrombocytopenia. #Acute metabolic encephalopathy- resolved Likely secondary to sepsis from cellulitis and/or Tamiflu administration. Patient given Tamiflu 75mg BID on 08/02/24, which was not renally dosed. Head CT negative for hemorrhage. Per son, patient is not back to her baseline, as she generally is very talkative and is A&O x 3. #Influenza B+ - resolved Tested postive on 08/02/24. Unsure if patient took dose BID since 08/02/24. Gave a x1 order of Tamiflu 30mg #NSTEMI, likely type II Denies any chest pain at this time; likely secondary to sepsis Troponin 0.553 # Mild transaminitis?resolved # Hyperbilirubinemia T. bili 1.6 ---> 2.3, AST 138 ---> 32, ALT 26 and ALP 71 # Essential HTN Patient takes Lasix at home BP stable at this time, will hold off on antihypertensives for now #History of T2DM 08/10/2019 HbA1c 7.1% Blood glucose range controlled between 140s-180s on diet Plan: ? Continue low consistent carb diet Health maintenance: Disposition: IV antibiotics for cellulitis. Anticipate discharge within next 24 to 48 hours Diet: Renal, 1500 cc fluid restriction Lines: pIVs GI Prophylaxis: None Thrombo Prophylaxis: None Code status: FULL CODE Plan of care discussed with Attending Dr. Jones and PGY3 Dr. Farida Alvarado MD PGY 1
--- NOTE | 2024-08-17 16:29 | PC.NURSE ---
Per Dr. Alvarado if home O2 is delivered tonight, then pt. may be discharged. However, if it is not delivered tonight, then pt. will be DC tomorrow.
--- NOTE | 2024-08-17 16:31 | PC.SS ---
SS setup follow up appointment with Dr. Barker at [facility] for 08-20-24 at 10:45am. SS provided dtr in [facility] with appointment information by phone.
--- NOTE | 2024-08-17 17:49 | PC.NURSE ---
Oxygen company called to RN and states that oxygen will be delivered between [address] Alvarado aware and orders to hold off on DC until tomorrow due to uncertainty of supervisor opening and picking/ patient ride that late in the evening. Per delivery company Oxygen will be delivered tomorrow 08/[address] between [address] Alvarado aware and agrees to plan.
[2024-08-17] MEDS: MELATONIN 3 MG TABLET 9 MG PO (20:09)
[2024-08-17] MEDS: MIDODRINE 5 MG TABLET 10 MG PO (20:09)
--- NOTE | 2024-08-17 20:10 | PD.IMPROG ---
Documentation for date of: 08/17/24 Subjective Subjective Interval history: Patient evaluated Diarrhea is much better Exam Vital Signs Temp Pulse Resp BP Pulse Ox O2 Del Method O2 Flow Rate 97.3 F 67 20 117/61 100 Nasal Cannula 1 08/17/24 16:00 08/17/24 20:09 08/17/24 16:00 08/17/24 20:09 08/17/24 16:00 08/17/24 16:00 08/17/24 16:00 FiO2 2 08/17/24 16:00 Objective Labs 08/17/24 05:33 08/17/24 05:33 Labs: Laboratory Results - last 24 hr 08/12/24 08/17/24 04:00 05:33 WBC 23.8 H RBC 3.24 L Hgb 10.3 L Hct 30.9 L MCV 95 MCH 31.8 MCHC 33.3 RDW Std Deviation 55.7 H Plt Count 192 Neut % (Auto) 88 H Lymph % (Auto) 4 L [place] % (Auto) 5 Eos % (Auto) 0 Baso % (Auto) 0 Neut # (Auto) 20.9 H Lymph # (Auto) 1.1 [place] # (Auto) 1.3 H Eos # (Auto) 0.0 Baso # (Auto) 0.1 Immature Gran # (Auto) 0.49 H Absolute Nucleated RBC 0.00 Immature Gran % 2 H Nucleated RBC % 0 Sodium 131 L Potassium 5.0 D Chloride 95 L Carbon Dioxide 26.5 Anion Gap 10 BUN 36 H Creatinine 4.8 H* D Estim Creat Clear Calc 11.4 L eGFR 10 L* BUN/Creatinine Ratio 8 L Glucose 95 Calculated Osmolality 270 L Calcium 8.4 Corrected Calcium 9.3 Phosphorus 3.5 Magnesium 2.0 Total Bilirubin 1.1 AST < 10 ALT < 7 L Alkaline Phosphatase 76 Total Protein 6.1 Albumin 2.9 L Globulin 3.2 Albumin/Globulin Ratio 0.9 L Stl Giardia Antigen NOT DETECTED Impressions Impression: # Continue current management diarrhea secondary to rectal incontinence as well as functional bowel disease ABG Interpretation ABG results: 08/08/24 01:28 ABG pH 7.51 H ABG pCO2 34 ABG pO2 108 ABG HCO3 27 H ABG O2 Saturation 99 H ABG Base Excess 4 H Assessment & Plan A&P Narrative # Chronic persistent diarrhea etiology uncertain Differential diagnosis autonomic neuropathy of the GI tract due to underlying longstanding diabetes mellitus Infectious enterocolitis versus inflammatory colitis Plan Complete stool analysis ANCA antibody Fiberoptic colonoscopy with biopsies for further evaluation Clear liquid diet GoLytely Once patient is cleared we will perform colonoscopy with biopsy with intubation of the terminal ileum Other medical problems include End-stage renal disease on hemodialysis MWF Diabetes mellitus type 2 Essential hypertension Peripheral vascular disease right lower extremity worse than left lower extremity Cellulitis lower extremity leading to sepsis on broad-spectrum antibiotics IV Zosyn and vancomycin and now currently on Ancef Thank you once again for the opportunity to participate in care of this patient Time Spent With Patient Time: Total time spent is greater than 50% in coordination of care (as documented) at patient's floor/unit and/or counseling patient:
[2024-08-18] VITALS (25 sets, daily range): BP systolic 121–155; BP diastolic 61–89; PULSE 64–82; RESP 14–22; TEMP 35.9–36.9; O2SAT 94–100; BMI 29.4
--- NOTE | 2024-08-18 08:17 | PC.NURSE ---
Dr. Yap at bedside, increased goal to 4 L and increased time to accomodate increase in goal.
--- NOTE | 2024-08-18 08:22 | PD.RESPRO ---
Documentation for date of: 08/18/24 Subjective Subjective Interval history: Ms. Aguilar is a 54-year-old lady with extensive past medical history of uncontrolled hypertension and diabetes for many years ended up on dialysis 2 years ago under my care and has been coming to dialysis treatments on TTS (noncompliant with treatments due to loose stools) was admitted to the emergency department brought by the son with generalized weakness and significant right leg edema which is going on for the last 3 days. Patient apparently came to the ED last week and diagnosed with flu and was given Tamiflu. I saw her at the dialysis unit on and emphasize compliance. Her son is also on dialysis and was recently switched from MWF to TTS sessions. Hope she will be compliant. In the emergency department as she was having fever of 105, WBC 10.2, pH 7.51, lactic acid 4.1, LFTs were elevated, LDH 594, creatinine 6.9, BNP greater than 3280, Pro-Antwan 120, troponin 0.5. Urinalysis shows blood and protein with glucose. Chest x-ray showed fluid overload, head CT negative. Abdominal CT showed liver cirrhosis, pulmonary edema Patient denies any chest pain, nausea/vomiting, recent trauma or bug bite. Patient does walk with shoes and socks at home. Meds: Lomotil as needed, Sensipar 30 mg daily, Xphozah 30 mg, Lasix 40 mg daily, Cincalet, sevelamer carbonate 3 times daily Social history: Patient denies any smoking, alcohol use or illicit drug use. Patient will be admitted for sepsis secondary to RLE cellulitis. Renal consultation requested for need for dialysis. Patient currently seen on dialysis. 08/09/2024 patient currently seen in telemetry. Still having some pain in the right lower extremities at the site of extensive cellulitis. Edema tad better after dialysis although erythema still persist. Currently on Zosyn, Vanco. Denies any chest pain. Blood pressure 99/50, heart rate 82. WBC 13.7, hemoglobin 12.1. Platelets 128. Sodium 138, potassium 3.6, bicarbonate 31.2, BUN 30, creatinine 4.9, calcium 8.8, AST 111, total bilirubin 1.5, troponin 0.4, albumin 2.4, Echocardiogram showed ejection fraction 55%. 08/10/2024: The patient was examined and interviewed at the bedside this morning. She still has anasarca, extensive cellulitis of right leg, and was saturating 97% on 1 L NC. Other vitals fairly stable, CR trended up to 17.3, chemistry panel significant for ESRD. The patient had 1 hemodialysis on today, as she still seems to be on volume overload. 08/11/2024: The patient was examined and interviewed at the bedside this morning. She reported doing well. Physical examination was significant for 2-3+ peripheral pitting edema. Still has cellulitis of right leg with erythema. Labs significant for decreasing WBC to 15.1, hemoglobin 11.5 likely dilutional, sodium 131, chloride 93, BUN 53, creatinine 6.3 And total bilirubin trended up to 2.3. The patient will undergo regularly scheduled hemodialysis session today as per TTS schedule. 08/12/2024: The patient was interviewed and examined at the bedside this morning. She reported having diarrhea, which is her chronic problem, and due to which she misses her dialysis frequently. She has not been able to get outpatient GI appointment for a long time. Her vitals are fairly stable count trended down to 14.2, sodium 134, potassium 3.2 was repleted with 20 mEq p.o. KCl, UN 36 and creatinine 4.7 with EGFR 11 consistent with ESRD. And her total bilirubin has been stable at 2.3. The patient has got hemodialysis [id number] in last 2 days. The patient will get another session of hemodialysis tomorrow morning again. 08/13/2024: The patient was interviewed and examined at the bedside this morning. She was saturating 97% on room air. Her other vitals were fairly stable. Chemistry panel significant for sodium 132, chloride 93, BUN 45 and creatinine 5.4. Physical exam is still significant for bilateral lower limb edema and right leg cellulitis that has been improving. The patient will undergo regularly scheduled hemodialysis today. 08/14/2024: The patient was interviewed and examined at the bedside this morning again. She reported doing well. She was saturating 97% on room air. Her other vitals are fairly stable. Her white count continuously increasing to 20.4, potassium 3.3, phosphorus 2.3 magnesium 2.1, BUN 27, creatinine 4.1, EGFR 12 consistent with ESRD. Physical exam was significant for 2+ bilateral lower limb pitting edema. She will get another session of dialysis tomorrow. Patient was not clear from [facility] yesterday evening, and colonoscopy was canceled, will be done today. 08/15/2024: The patient was interviewed and examined at the bedside this morning. She reported doing well. Her vitals were fairly stable, saturating 99% on 2 L NC with blood pressure 50/82. Her white count trended up to 23.2 and her right leg erythema seems to be improving. She still has 2+ bilateral lower limb pitting edema. Her renal function consistent with ESRD. Colonoscopy done yesterday, hemorrhoids found on perianal exam, erythematous mucosa in the ascending colon, in the descending colon and the rectum and were biopsied. 1 medium 7 to 9 mm polyp in the proximal ascending colon, removed with hot snare. Moderate diverticulosis in the right colon and in the ascending colon. There was no evidence of diverticular bleeding. Very poor sphincter tone. 08/17/2024: The patient was interviewed and examined at the bedside again this morning. She reported doing well. She was saturating 91% on room air. Her other vitals were stable. Physical examination was significant for pitting edema over her left abdomen likely dependent edema, mild crackles over bibasilar pulmonary region, and 1-2+ lower limb pitting edema. Labs still shows white count of 23.8, sodium trended down to 131, potassium 5.0, BUN 36 and creatinine 4.8 with EGFR 10. The patient will get 1 session of hemodialysis this morning. Nephrology team agrees to give IV antibiotics during hemodialysis sessions as recommended by primary hospitalist team. 08/18/2024: The patient was interviewed and examined at the hemodialysis unit this morning. She reported doing well. She was saturating 97% on 2 L NC. She was mildly hypertensive with blood pressure 155/70, with other vitals WNL. Physical examination was significant for 1+ bilateral lower limb pitting edema, no crackles over lung field. We will continue with regularly scheduled hemodialysis as per TTS schedule. Exam Vital Signs Temp Pulse Resp BP Pulse Ox O2 Del Method O2 Flow Rate 97.4 F 77 16 155/70 H 97 Nasal Cannula 2 08/18/24 07:30 08/18/24 08:15 08/18/24 07:37 08/18/24 08:15 08/18/24 07:37 08/18/24 07:30 08/18/24 07:30 FiO2 2 08/17/24 16:00 Narrative Exam General: No acute distress, Alert and Oriented x 3 HEENT: Moist mucous membranes, oropharynx clear Neck: Supple, No masses, No JVD CVS: S1S2 Regular rate and rhythm, No murmurs, rubs or gallops Lungs: No crackles, no rhonchi or wheeze Abd: Soft, NT/ND, +BS, no organomegaly, left side with 2+ pitting edema Ext: 1+ BL LL pitting edema, right lower leg erythema improving, peripheral arteries barely palpable on bilateral lower limb extremities Skin: No rash Psych: Appropriate mood and affect Objective Labs 08/18/24 07:47 08/18/24 07:47 ABG Interpretation ABG results: 08/08/24 01:28 ABG pH 7.51 H ABG pCO2 34 ABG pO2 108 ABG HCO3 27 H ABG O2 Saturation 99 H ABG Base Excess 4 H Quality Measures Quality Measures sepsis Current suspected stage: ruled out Possible source: skin/soft tissue Blood cultures ordered: yes Antibiotic ordered: Yes Assessment & Plan Assessment Current Active Medications: Generic Name Dose Route Start Last Admin Trade Name Freq PRN Reason Stop Dose Admin Acetaminophen 650 mg 08/08/24 03:24 08/15/24 10:28 Acetaminophen 325 Mg Tablet PO 09/07/24 03:23 650 mg Q6H PRN Administration Fever >100.3 or Pain 1-3 Dextrose 25 ml 08/08/24 04:55 Dextrose 50%-Water Inj 50 Ml Syringe IV 09/07/24 04:54 Q15MIN PRN BG 50-70 responsive npo pt Dextrose 50 ml 08/08/24 04:55 Dextrose 50%-Water Inj 50 Ml Syringe IV 09/07/24 04:54 Q15MIN PRN BG <50 OR BG <70 & pt unresponsive Doxycycline Hyclate 100 mg 08/14/24 09:00 08/17/24 20:09 Doxycycline 100 Mg Tablet PO 08/21/24 08:59 100 mg BID LIU Administration Guaifenesin 200 mg 08/14/24 12:00 08/17/24 20:05 Guaifenesin Syrup 200 Mg/10 Ml Udc PO 09/13/24 11:59 200 mg BID LIU Administration Protocol Cefazolin Sodium 2 gm in 100 mls @ 200 mls/hr 08/11/24 16:00 08/15/24 16:55 Ancef 2gm Ivpb IV 08/22/24 16:29 200 mls/hr TUTHSA@1600 LIU Administration Loperamide HCl 2 mg 08/15/24 13:45 08/17/24 20:09 Loperamide 2 Mg Capsule PO 08/22/24 13:44 2 mg BID LIU Administration Melatonin 9 mg 08/12/24 21:00 08/17/24 20:09 Melatonin 3 Mg Tablet PO 09/11/24 20:59 9 mg HS LIU Administration Metoclopramide HCl 10 mg 08/08/24 03:24 Metoclopramide 5 Mg Tablet PO 09/07/24 03:23 Q6H PRN NAUSEA OR VOMITING Midodrine 10 mg 08/09/24 21:00 08/17/24 20:09 Midodrine 5 Mg Tablet PO 09/08/24 20:59 10 mg BID LIU Administration Plan The patient is a 54-year-old female with significant past medical history of ESRD 2/2 hypertension and type 2 diabetes mellitus presented to ED with chief complaint of altered mental status was found to have severe right leg cellulitis. Nephrology consultation was done for further management of ESRD and hemodialysis. #ESRD secondary to hypertensive/diabetic nephropathy Patient seems to be on volume overloaded status, but there has been improvement on anasarca. -Patient received 1 session of hemodialysis today as per TTS schedule. -We will continue with regularly scheduled hemodialysis session on TTS #Mild hypoosmolar hypervolemic hyponatremia Likely in the setting of fluid overload secondary to ESRD -Patient will get hemodialysis today -We will continue with regularly scheduled hemodialysis sessions on TTS. #Anemia: Likely anemia of chronic disease secondary to ESRD, as there was no bleeding demonstrated in colonoscopy. -Consider iron panel -May consider starting on ferrous sulfate 325 mg p.o. daily #Acute on chronic diarrhea Patient has history of chronic diarrhea, and she has not been able to follow-up with GI for a long time. -Colonoscopy done yesterday, hemorrhoids found on perianal exam, erythematous mucosa in the ascending colon, in the descending colon and the rectum and were biopsied. 1 medium 7 to 9 mm polyp in the proximal ascending colon, removed with hot snare. Moderate diverticulosis in the right colon and in the ascending colon. There was no evidence of diverticular bleeding. Very poor sphincter tone. -GI Dr. Villegas consulted, appreciate further recommendations -tTG-IgA ordered to R/O celiac disease #Sepsis secondary to right leg cellulitis, improved #Cellulitis of right leg Patient was started on antibiotics-on Vanco, Zosyn, switched to cefazolin, still significant erythema noted. Blood cultures so far negative. -Will get IV antibiotics during hemodialysis after discharge #Hypotension, improved ? ? ?Likely in the setting of underlying cellulitis. Echocardiogram showed normal ejection fraction. -Continue with midodrine 10 mg twice daily, may increase up to 10 mg 3 times daily if blood pressure remains soft #Diabetes mellitus type II -Accu-Cheks, sliding scale, consistent carb diet #Possible cirrhosis As revealed by abdomen/pelvis CT -As per primary team #PAD -As per primary team Thank you for allowing nephrology team to be a part of patient care. The patient's management plan was discussed with my attending physician MD Ajit Bailey MD, PGY2 Attending Provider Attestation/Addendum Patient seen and examined with resident physician Dr. Wilkerosn. Note reviewed, agree with findings and recommendations. Noted with the GoLytely significant abdominal wall and thigh edema. patient currently seen on dialysis. Tolerating dialysis without any problems. Hemodialysis for 3 hours, sequential ultrafiltration 2-3 L, Epogen 6000, no heparin ordered. Plan of care discussed with the dialysis nurse. Please see dialysis flowsheet for further details. Continue with broad-spectrum antibiotics for right lower extremity cellulitis. Patient will receive Ancef at the dialysis for the next 2 weeks. Spoke to primary team. If patient remains she is going to get her regular scheduled dialysis tomorrow. Patient had a colonoscopy which showed colitis. Biopsies were done.
[2024-08-18 08:23] LABS: Basophils # (Auto) 0.1 Thou/mm3 (0.0-0.2); Basophils % (Auto) 0 % (0-2.5); Eosinophils % (Auto) 0 % (0-10); Hematocrit 30.3 % (36.0-46.0); Hemoglobin 10.2 g/dL (12.0-16.0); Immature Granulocytes % (Auto) 1 % (0-0); Immature Granulocytes Auto 0.21 Thou/mm3 (0.00-0.00); Lymphocytes # (Auto) 1.2 Thou/mm3 (1.0-4.8); Lymphocytes % (Auto) 8 % (10-50); Mean Corpuscular HGB Conc 33.7 g/dl (31.0-37.0); Mean Corpuscular Hemoglobin 32.2 pg (25.0-35.0); Mean Corpuscular Volume 96 fL (80-100); Monocytes # (Auto) 1.2 Thou/mm3 (0.0-0.8); Monocytes % (Auto) 8 % (0-12); Neutrophils # (Auto) 13.2 Thou/mm3 (1.8-7.7); Neutrophils % (Auto) 83 % (37-80); Nucleated Red Blood Cell % 0 /100 WBC (0); Platelet Count 240 Thou/mm3 (140-440); Red Blood Count 3.17 Miln/mm3 (4.00-5.20); White Blood Count 15.8 Thou/mm3 (3.6-11.0)
[2024-08-18 08:39] LABS: Alanine Aminotransferase < 7 U/L (10-49); Albumin, Serum 2.9 gm/dL (3.5-5.0); Albumin/Globulin Ratio 0.9 (1.2-2.2); Alkaline Phosphatase 82 U/L (46-116); Anion Gap 8 (7-16); Aspartate Amino Transferase 12 U/L (0-34); BUN/Creatinine Ratio 8 Ratio (12-20); Bilirubin,Total 0.9 mg/dL (0.3-1.2); Blood Urea Nitrogen 51 mg/dL (9-23); Calcium 8.8 mg/dL (8.3-10.6); Calcium (Corrected) 9.7 mg/dL (8.5-10.1); Carbon Dioxide 24.1 mMol/L (20.0-31.0); Chloride 98 mMol/L (98-107); Creatinine (Component) 6.1 mg/dL (0.6-1.3); Estimated Creatinine Clearance 8.9 mL/min (>60); Globulin 3.4 gm/dL (2.3-3.5); Glucose 93 mg/dL (74-106); Osmolality,Calculated 274 (275-295); Phosphorous 4.9 mg/dL (2.4-5.1); Potassium 5.1 mMol/L (3.4-5.1); Sodium 130 mMol/L (136-145); Total Protein 6.3 gm/dL (5.7-8.2); eGFR 8 See Note
--- NOTE | 2024-08-18 08:50 | PD.IMPROG ---
Documentation for date of: 08/18/24 Exam Vital Signs Temp Pulse Resp BP Pulse Ox O2 Del Method O2 Flow Rate 97.4 F 80 16 151/73 H 97 Nasal Cannula 2 08/18/24 07:30 08/18/24 08:45 08/18/24 07:37 08/18/24 08:45 08/18/24 07:37 08/18/24 07:30 08/18/24 07:30 FiO2 2 08/17/24 16:00 Objective Labs 08/18/24 07:47 08/18/24 07:47 Labs: Laboratory Results - last 24 hr 08/18/24 07:47 WBC 15.8 H D RBC 3.17 L Hgb 10.2 L Hct 30.3 L MCV 96 MCH 32.2 MCHC 33.7 RDW Std Deviation 58.0 H Plt Count 240 D Neut % (Auto) 83 H Lymph % (Auto) 8 L [place] % (Auto) 8 Eos % (Auto) 0 Baso % (Auto) 0 Neut # (Auto) 13.2 H Lymph # (Auto) 1.2 [place] # (Auto) 1.2 H Eos # (Auto) 0.0 Baso # (Auto) 0.1 Immature Gran # (Auto) 0.21 H Absolute Nucleated RBC 0.00 Immature Gran % 1 H Nucleated RBC % 0 Sodium 130 L Potassium 5.1 Chloride 98 Carbon Dioxide 24.1 Anion Gap 8 BUN 51 H Creatinine 6.1 H* D Estim Creat Clear Calc 8.9 L eGFR 8 L* BUN/Creatinine Ratio 8 L Glucose 93 Calculated Osmolality 274 L Calcium 8.8 Corrected Calcium 9.7 Phosphorus 4.9 Magnesium 2.0 Total Bilirubin 0.9 AST 12 ALT < 7 L Alkaline Phosphatase 82 Total Protein 6.3 Albumin 2.9 L Globulin 3.4 Albumin/Globulin Ratio 0.9 L ABG Interpretation ABG results: 08/08/24 01:28 ABG pH 7.51 H ABG pCO2 34 ABG pO2 108 ABG HCO3 27 H ABG O2 Saturation 99 H ABG Base Excess 4 H Assessment & Plan A&P Narrative # Chronic persistent diarrhea etiology uncertain Differential diagnosis autonomic neuropathy of the GI tract due to underlying longstanding diabetes mellitus Infectious enterocolitis versus inflammatory colitis Plan Complete stool analysis ANCA antibody Fiberoptic colonoscopy with biopsies for further evaluation Clear liquid diet GoLytely Once patient is cleared we will perform colonoscopy with biopsy with intubation of the terminal ileum Other medical problems include End-stage renal disease on hemodialysis MWF Diabetes mellitus type 2 Essential hypertension Peripheral vascular disease right lower extremity worse than left lower extremity Cellulitis lower extremity leading to sepsis on broad-spectrum antibiotics IV Zosyn and vancomycin and now currently on Ancef Thank you once again for the opportunity to participate in care of this patient Time Spent With Patient Time: Total time spent is greater than 50% in coordination of care (as documented) at patient's floor/unit and/or counseling patient:
--- NOTE | 2024-08-18 11:19 | PD.RESDS ---
Planned Discharge Date 08/18/24 DS: Providers Provider Date of admission: 08/08/24 03:24 Primary care physician: Physician No Primary/Family Admitting Provider: Charles Steele MD Attending Provider on Admission: Willem Jones MD Consults: 08/08/24 04:01 Consult to Nephrology Stat Comment: Consulting Provider: Diego Yap 08/11/24 19:25 Referral Wound Care Urgent Comment: ruptured blister right thigh 08/12/24 08:59 Consult to Gastroenterology Routine Comment: Consulting Provider: Parul Villegas 08/17/24 10:14 PT [Referral Physical Therapy] Urgent Comment: Physician Instructions: Instructions: Bedbound for 9 days. Please assess and help stand Attending Provider on DC: Rio Alvarado MD Discharging Provider: Rio Alvarado MD DS: Diagnosis Problem List Completed Was Problem List Reviewed/Reconciled?: Yes Hospital Course Hospital Course Hospital course: Patient is a 54-year-old female with HTN, ESRD on HD TTS, T2DM who was brought to the ED by her son due to altered mental status. Additionally, son states that patient had severe generalized weakness and needed to be carried to her bedroom. Son states that patient's legs have gotten swollen and red. Patient will be admitted for sepsis secondary to RLE cellulitis. 1. For patient's right lower extremity cellulitis she was treated with 3 days of Zosyn 3.375 g IV twice daily and vancomycin 1 g IV daily from [08/08 - 08/11]. Patient had 2 sets of blood cultures from 08/08/24 and 08/10/24 which showed no bacterial growth x 48 hours and was subsequently switched to cefazolin 2 g IV during dialysis sessions and doxycycline 100 Mg p.o. twice daily from 08/12?present. Patient came in and found to have 2 or more SIRS criteria and was evaluated for sepsis. However, based upon further work-up, sepsis was ruled out. Patient to complete 2 more weeks of cefazolin during dialysis sessions as outpatient. 2. Initially there was a concern for cellulitis but imaging ruled it out. CT lower extremity completed on 08/13/24 confirmed Right lower extremity cellulitis. Negative for osteomyelitis. 3. Patient had lower extremity arterial duplex which revealed peripheral arterial disease. Bilateral lower extremity arterial duplex completed on 08/10/2024 findings include: Bilateral peripheral obstructive arterial disease, most severe involving right lower extremity 4. With regards to patient's chronic diarrhea she was evaluated by gastroenterology, Dr. Villegas. Colonoscopy completed on 08/14/2024 findings include: Hemorrhoids, poor sphincter tone. Patchy area of mildly erythematous mucosa in ascending colon, descending colon and rectum. Biopsies taken. 7-9 mm polyp found in proximal ascending colon. Polyp was sessile and removed with hot snare. A few small mounted diverticula in sigmoid and descending colon. Stool for WBCs negative She was found to have decreased anal sphincter tone which contributed to her stool incontinence. ANCA studies and stool for calprotectin were also ordered and currently pending. She was started on loperamide 2 Mg p.o. twice daily as per GI recommendations and her diarrhea improved. 5. For her end-stage renal disease on hemodialysis she was dialyzed with 3 extra sessions initially on admission and then continued on her regular schedule Saturday//Saturday. Director Of Rehabilitative Services, Dr Yap will continue to follow her up as outpatient. 6. For patient's insomnia she was started on melatonin 9 Mg p.o. at bedtime and reported a good response. Will continue on discharge. All patient's labs are now returning to her baseline. Patient is now clinically stable and fit for discharge to home with home oxygen. Discharge diagnosis: 1. Right lower extremity cellulitis?improving 2. Sepsis?rule out 3. DVT?ruled out 4. Peripheral arterial disease 5. Leukocytosis?resolving 6. Osteomyelitis?rule out 7. Chronic diarrhea 8. Decreased anal sphincter tone 9. Hypokalemia?resolved 10. Hypophosphatemia?resolved 11. Insomnia 12. ESRD on hemodialysis Saturday//Saturday 13. Chronic systolic heart failure with preserved ejection fraction [55%] 14. Thrombocytopenia?resolved 15. Acute metabolic encephalopathy?resolved 16. Influenza B?resolved 17. NSTEMI type II?resolved 18. Transaminitis?resolved 19. Hyperbilirubinemia?resolving 20. Primary hypertension 21. Wll-qjclpkm-usrujxobt diabetes mellitus type 2 Discharge plan: ? You have been started on a medication cefazolin 2G IV to take after your dialysis sessions. You have 6 more doses, 1 dose after each dialysis session. Last dose on 08/29/2024. - You have been started on a medication Doxycycline. Take 1 tablet twice a day for 8 more days - Follow up with your primary doctor for the results of your biopsies from colonoscopy. - Follow up with your primary care physician within 1 week of discharge. If you do not have a primary care physician, please follow up with the [facility] Residents clinic ([phone]) - Appointment with Dr. Barker for 08-20-24 at 10:45am at [facility] ? If you experience any new, worsening or persistent symptoms either call your primary doctor, or dial 911 or present to the emergency department. We are grateful to be able to participate in Mrs. Aguilar' care. We wish her the best. Plan of care discussed with Attending Dr. Jones and PGY3 Dr. Farida Alvarado MD PGY 1 Time Spent with Patient Time attestation: Total time spent providing and/or coordinating discharge services: Time spent: Greater than 30 minutes (36) Home Health Home Health Referral Orders: 08/17/24 15:13 Home Health Referral Routine Reason For Exam: PT Home-Bound The patient must either because of illness or injury, need the aid of supportive devices such as crutches, canes, wheelchairs, and walkers; the use of special transportation; or the assistance of another person in order to leave their place of residence; OR have a condition such that leaving his or her home is medically contraindicated. In addition, the patient also meets the following criteria: patient is normally unable to leave the home and leaving home requires considerable taxing effort. Addendum to Home Health Certification Practitioner's Certification: I certify that the patient has been under my care in the hospital and the care of attending physician (see below). We had a sfzo-[id number] encounter on (see date below). My clinical findings indicate that the patient is home bound per the above criteria and the Home Health Services noted in these orders are medically necessary. The primary reason for the lewl-hc-[id number] encounter is related to the fact that the patient requires home health services. Date Certifying Tgfr-cc-Rtca Physician Encounter: 08/08/24 Physician's Name who will Assume Oversight for HH Services: Physician No Primary/Family TYPEWRITER MECHANIC - Community Resources: No PT to Evaluate: Yes PT to evaluate and provide a treatmnet plan to increase patient's mobility and strength. Wound Care: No IV Therapy: No RN Safety Evaluation: Yes RN to evaluate and create a plan of care that will produce positive outcomes. Palliative Treatment: No Palliative treatment and evaluate the need for hospice. Home Health Aide - Personal Care: No Home Health Aide to assist with any ADL's. Exam Vital Signs Temp Pulse Resp BP Pulse Ox O2 Del Method O2 Flow Rate 96.8 F 69 16 145/67 H 100 Nasal Cannula 2 08/18/24 11:14 08/18/24 11:18 08/18/24 11:14 08/18/24 11:18 08/18/24 11:14 08/18/24 07:30 08/18/24 07:30 FiO2 2 08/17/24 16:00 Narrative Exam Constitutional Alert, oriented x 3 and comfortable. Middle-age female, appears much older than her age. HEENT Vision grossly intact. Patent nares. Trachea midline Respiratory Chest normal on inspection and decreased AE at bases - improving Cardiovascular S1 and S2 audible, RRR. No murmurs carotid bruit. No gross JVD. Abdominal Soft and non tender to palpation in all quadrants. BS + Genitourinary No bladder tenderness, no flank pain. Normal to palpation Musculoskeletal Extremities tone within normal limits. Trace bilateral lower extremity edema up to knees . Erythematous right lower limb up to mid tibia- improving Neurological CN II - XII grossly intact. Extremity motor and sensation grossly intact. Skin Warm, dry and intact. Left brachiobasilic fistula. Trill felt Psychiatric Patient has flat affect, is cooperative Discharge Plan Plan Patient Disposition: HOME (Self Care) Disposition Comment: Tele Patient condition on transfer: Stable Care Plan Goals: ? You have been started on a medication cefazolin 2G IV to take after your dialysis sessions. You have 6 more doses, 1 dose after each dialysis session. Last dose on 08/29/2024. - You have been started on a medication Doxycycline. Take 1 tablet twice a day for 8 more days - Follow up with your primary doctor for the results of your biopsies from colonoscopy. - Follow up with your primary care physician within 1 week of discharge. If you do not have a primary care physician, please follow up with the [facility] Residents clinic ([phone]) ? If you experience any new, worsening or persistent symptoms either call your primary doctor, or dial 911 or present to the emergency department. appointment with Dr. Barker for 08-20-24 at 10:45am at [facility] Prescriptions/Referrals Prescriptions/Med Rec: New loperamide 2 mg Capsule 2 mg PO BID 30 Days Qty: 60 0RF midodrine 5 mg Tablet 5 mg PO BID 30 Days Qty: 60 0RF melatonin 3 mg Tablet 9 mg PO HS 30 Days Qty: 90 0RF Referrals: No Primary/Family,Physician [Primary Care Provider] - Patient/Caregiver Discharge Instructions Discharge Activity: activity as tolerated Education Materials: Hemodialysis, Coping with Kidney Failure, Diabetes and Kidney Disease, Discharge Instructions for Cellulitis Print Language: Frisian Stand Alone Forms: Samantha Award Info., Patient Portal Info Letter Discharge Order Discharge Orders: Discharge (Routine); Ordered 08/18/24 Ordered By: Rio Alvarado Quality Discharge Quality Measures none (thrombocytopenia)
[2024-08-18] MEDS: LOPERAMIDE 2 MG CAPSULE PO (12:34)
[2024-08-18] MEDS: DOXYCYCLINE 100 MG TABLET PO (12:34)
[2024-08-18] MEDS: guaiFENesin SYRUP 200 MG/10 ML UDC PO (12:34)
[2024-08-18] MEDS: ceFAZolin/D5W 2 GM IV 2 GM/100 ML BAG IV (14:29)
--- NOTE | 2024-08-18 15:28 | PC.SS ---
SS spoke to Husam Blood, patient's dtr in law who is aware pt is ready for d/c. Husam confirmed they have received home O2 from [facility]. Leona RIVERA is aware. SS attempted to contact bedside nurse but was unsuccessful. Family will be providing transport
--- NOTE | 2024-08-18 19:17 | PC.NURSE ---
Son at bedside during discharge instructions, verbalized understanding of wound care. Showed son how to perform wound care at home and given supplies to take home. Educated son to call pcp if increased pain/ redness from wound. Verbalized understanding of needing to buy oxygen monitor and blood pressure machine. Verbalized understanding of follow up appointments. Number provided for [facility] to follow up for new primary. Son and patient educated to follow up with colonoscopy through primary. Educated to take bp when taking midodrine and to follow orders if systolic over 140 to not take medication. Patient and son verbalized understanding of purchasing bp machine to monitor bp to take medication correctly. Educated patient and son if unable to get bp cuff or oxygen monitor to call hospital and connect with for resources.
== END 2024-08-18 18:00 | disposition home or self-care (01) | DRG 720 ==
LOC: SERX 08-08 02:41 → SERHOLD 08-08 04:12 → S2NX 08-10 07:45 → S2SX 08-11 12:39
PROVIDERS: Internal Medicine; Specialist; Student in an Organized Health Care Education/Training Program; Admitting Provider Student in an Organized Health Care Education/Training Program; Emergency Provider Emergency Medicine; Visit Provider Internal Medicine
PROC: 0DJD8ZZ Inspection of Lower Intestinal Tract, Via Natural or Artificial Opening Endoscopic (ICD-10-PCS; CPT 45378; principal; 2024-08-14 17:30)
DX: A41.9 Sepsis, unspecified organism (principal); I50.22 Chronic systolic (congestive) heart failure; K74.60 Unspecified cirrhosis of liver; L03.115 Cellulitis of right lower limb; L03.116 Cellulitis of left lower limb; G93.41 Metabolic encephalopathy; Z99.2 Dependence on renal dialysis; N18.6 End stage renal disease; E11.22 Type 2 diabetes mellitus with diabetic chronic kidney disease; J10.1 Influenza due to other identified influenza virus with other respiratory manifestations; E11.51 Type 2 diabetes mellitus with diabetic peripheral angiopathy without gangrene; R18.8 Other ascites; I13.2 Hypertensive heart and chronic kidney disease with heart failure and with stage 5 chronic kidney disease, or end stage renal disease; D63.1 Anemia in chronic kidney disease; K64.9 Unspecified hemorrhoids; K63.5 Polyp of colon; K57.30 Diverticulosis of large intestine without perforation or abscess without bleeding; K58.9 Irritable bowel syndrome, unspecified; G47.00 Insomnia, unspecified; M25.561 Pain in right knee; E87.1 Hypo-osmolality and hyponatremia; E87.6 Hypokalemia; E83.39 Other disorders of phosphorus metabolism; D69.6 Thrombocytopenia, unspecified; Z79.84 Long term (current) use of oral hypoglycemic drugs; R15.9 Full incontinence of feces; Z79.899 Other long term (current) drug therapy; Z91.158 Patient's noncompliance with renal dialysis for other reason
CPT/HCPCS: 36415; 36600; 70450; 71045; 73700; 74176; 74177; 80053; 80074; 80202; 80307; 81001; 82010; 82140; 82803; 83036; 83605; 83615; 83690; 83735; 83880; 83993; 84100; 84145; 84484; 84703; 85025; 85610; 85652; 85730; 86021; 86036; 86140; 86706; 87015; 87040; 87045; 87046; 87081; 87086; 87205; 87329; 87400; 87493; 87811; 87899; 93005; 93225; 93306; 93922; 93970; 96361; 96365; 96368; 97162; 99291; 99292; A4217; A4649; J0131; J0689; J1200; J1643; J1940; J2250; J2543; J3010; J3370; J3480; J3490; J7030; J7050; P9047; Q5105; Q9967; A9270

== ENCOUNTER → 2024-10-05 | Outpatient (CLI) | payer MEDICAID, SELFPAY | END | disposition home or self-care (01) | PROVIDERS: Visit Provider Student in an Organized Health Care Education/Training Program | DX: E11.621 Type 2 diabetes mellitus with foot ulcer (principal); L97.522 Non-pressure chronic ulcer of other part of left foot with fat layer exposed; L97.812 Non-pressure chronic ulcer of other part of right lower leg with fat layer exposed; L97.112 Non-pressure chronic ulcer of right thigh with fat layer exposed; N18.6 End stage renal disease; K52.9 Noninfective gastroenteritis and colitis, unspecified; M86.8X6 Other osteomyelitis, lower leg; D69.9 Hemorrhagic condition, unspecified; L03.116 Cellulitis of left lower limb; R60.0 Localized edema | CPT/HCPCS: 97597; 11042; 99213; A9270; G0463 ==

== ENCOUNTER → 2024-10-23 | Outpatient (CLI) | payer MEDICAID, SELFPAY | END | disposition home or self-care (01) | LOC: SWHD 14:29 | PROVIDERS: Visit Provider Physician Assistant | DX: E11.621 Type 2 diabetes mellitus with foot ulcer (principal); L97.522 Non-pressure chronic ulcer of other part of left foot with fat layer exposed; L97.822 Non-pressure chronic ulcer of other part of left lower leg with fat layer exposed; L97.122 Non-pressure chronic ulcer of left thigh with fat layer exposed; N18.6 End stage renal disease; K52.9 Noninfective gastroenteritis and colitis, unspecified; M86.8X6 Other osteomyelitis, lower leg; D69.6 Thrombocytopenia, unspecified; L81.9 Disorder of pigmentation, unspecified; L03.116 Cellulitis of left lower limb; R60.0 Localized edema | CPT/HCPCS: 99214; A9270; G0463 ==

== ENCOUNTER → 2024-10-30 | Outpatient (CLI) | payer MEDICAID, SELFPAY | END | disposition home or self-care (01) | LOC: SWHD 10:57 | PROVIDERS: PCP Family Medicine; Referring Provider Family Medicine; Visit Provider Surgery | DX: E11.621 Type 2 diabetes mellitus with foot ulcer (principal); L97.522 Non-pressure chronic ulcer of other part of left foot with fat layer exposed; L97.822 Non-pressure chronic ulcer of other part of left lower leg with fat layer exposed; L97.122 Non-pressure chronic ulcer of left thigh with fat layer exposed; N18.6 End stage renal disease; K52.9 Noninfective gastroenteritis and colitis, unspecified; M86.8X6 Other osteomyelitis, lower leg; D69.6 Thrombocytopenia, unspecified; L81.9 Disorder of pigmentation, unspecified; L03.116 Cellulitis of left lower limb; R60.0 Localized edema | CPT/HCPCS: 97597; 11042; A9270 ==

== ENCOUNTER → 2024-11-16 | Outpatient (CLI) | payer MEDICAID, SELFPAY | END | disposition home or self-care (01) | LOC: SWHD 13:13 | PROVIDERS: PCP Family Medicine; Referring Provider Family Medicine; Visit Provider Student in an Organized Health Care Education/Training Program | DX: E11.621 Type 2 diabetes mellitus with foot ulcer (principal); L97.522 Non-pressure chronic ulcer of other part of left foot with fat layer exposed; L97.821 Non-pressure chronic ulcer of other part of left lower leg limited to breakdown of skin; L97.122 Non-pressure chronic ulcer of left thigh with fat layer exposed; N18.6 End stage renal disease; K52.9 Noninfective gastroenteritis and colitis, unspecified; M86.8X6 Other osteomyelitis, lower leg; D69.9 Hemorrhagic condition, unspecified; L03.116 Cellulitis of left lower limb; R60.0 Localized edema | CPT/HCPCS: 97597; A9270 ==

== ENCOUNTER 2024-11-21 13:12 | Inpatient (IN) | payer MEDICAID, SELFPAY ==
[2024-11-21] VITALS (11 sets, daily range): BP systolic 100–155; BP diastolic 50–69; PULSE 75–100; RESP 14–99; TEMP 36.4–39.6; O2SAT 94–99; BMI 25.0; BMI 24.4
--- NOTE | 2024-11-21 13:30 | PC.NURSE ---
PER MEDIC, CALLED TO DIALYSIS FOR ALTERED PT BUT PT ALERT AND ORIENTED FOR MEDIC. [facility] STATES SHE GOT 650 OF TYLENOL WHILE AT DIALYSIS FOR ABD PAIN. PT DENIES ABD PAIN AT THIS TIME AND STATES I STARTED HAVING CHILLS WHILE GETTING MY TREATMENT, AND FEEL WEAK. I HAVE PAIN HERE (POINTS TO LEFT LATERAL SIDE UPPER CHEST) THAT GOES TO MY BACK. PT VERY SLOW WITH RESPONDING TO QUESTIONS. AV GRAFT TO LEFT UPPER ARM WITH DRESSINGS INTACT
--- NOTE | 2024-11-21 13:30 | PC.NURSE ---
PER MEDIC AT 1312, CALLED TO DIALYSIS FOR ALTERED PT BUT PT ALERT AND ORIENTED FOR MEDIC. [facility] STATES SHE GOT 650 OF TYLENOL WHILE AT DIALYSIS FOR ABD PAIN. PT DENIES ABD PAIN AT THIS TIME AND STATES I STARTED HAVING CHILLS WHILE GETTING MY TREATMENT, AND FEEL WEAK. I HAVE PAIN HERE (POINTS TO LEFT LATERAL SIDE UPPER CHEST) THAT GOES TO MY BACK. PT VERY SLOW WITH RESPONDING TO QUESTIONS. AV GRAFT TO LEFT UPPER ARM WITH DRESSINGS INTACT
--- NOTE | 2024-11-21 13:56 | XR_ITS ---
Examination: AP chest single view Technique one AP portable upright chest single view Date and time: November 21, 2024 at 1439 hrs. Indications: Sepsis protocol Findings: Mild heart failure Mild to moderate enlargement cardiac contour with prominent vascular congestion Edema versus early pneumonia at the right lung base Impression: Pulmonary edema versus early pneumonia at the right lung base
--- NOTE | 2024-11-21 13:58 | EDNOTE_ITS ---
ED Fever RME/HPI General Chief Complaint: Weakness Stated Complaint: CHILLS AT DIALYSIS, WEAKNESS Time Seen by Provider: 11/21/24 13:50 Arrival date/time: 11/21/24 13:12 RME / HPI RME / HPI Narrative: 54-year-old female patient with significant history of diabetes mellitus hypertension, liver cirrhosis, ESRD on hemodialysis was brought in by EMS for evaluation regarding fever. Patient woke up this morning with bodyaches, chills, diaphoresis, not feeling well. Went to dialysis, she told me prior to putting her on dialysis she developed chills. Patient also complained of cough and left-sided chest pain. Especially on coughing. In the triage, patient was noted to have a fever of 103.3, heart rate of 94, and sepsis alert was initiated right away. Related Data Previous Rx's ?Medication ?Instructions ?Recorded doxycycline hyclate 100 mg capsule 100 mg PO BID #14 c aps 08/19/24 Allergies Allergy/AdvReac Type Severity Reaction Status Date / Time No Known Allergies Allergy Verified 11/21/24 13:31 Review of Systems Review of Systems Narrative Review of Systems: Review of system reviewed and within normal limits except mentioned in HPI Physical Exam Narrative Physical exam: VITAL SIGNS: Reviewed. GENERAL APPEARANCE: Alert and interactive, follows commands, no acute distress, HEAD AND FACE: Non-traumatic. ENT: PERRL, pink conjunctivitis, eyelid no trauma, Mucous membrane moist. NECK: Supple, nontender, no nuchal rigidity. CHEST: No tenderness, no crepitus, no paradoxical movement, no retractions. LUNGS: Clear, well ventilated, symmetric, no rales, no wheezing, no ronchi, no stridor, good breath sounds bilaterally. HEART: Regular rate, regular rhythm, no murmur, no gallops. ABDOMEN: Soft, positive bowel sounds, nondistended, no guarding, nontender, no rebound, no masses, RECTAL: Deferred. GENITAL: Deferred. NEUROLOGICAL: Gross motor function intact sensory function intact, Appropriate for age. MUSCULOSKELETAL: low back nontender, full range of motion. EXTREMITIES: Nontender, full range of motion. Left arm AV fistula with thrill SKIN: Color pink, dry, no rash, no lacerations, no abrasions, no contusions. LYMPHATICS: Deferred. Course Quality Measures none Orders Category Date Time Status Bedside COVID-19 Antigen Test NOW Care 11/21/24 13:56 Active Bedside Influenza A&B Antigen Test NOW Care 11/21/24 13:57 Completed Contact Center Specialist STAT Care 11/21/24 13:56 Completed Continuous Pulse Oximetry STAT Care 11/21/24 13:56 Completed Decision to Admit X1 Care 11/21/24 16:43 Completed EKG (ED ONLY) *Do not use* NOW Care 11/21/24 13:56 Completed In and Out Catheter X1PRN Care 11/21/24 13:56 Completed Insert IV NOW Care 11/21/24 13:56 Completed NPO STAT Care 11/21/24 13:56 Active Strict Intake and Output Routine Care 11/21/24 13:56 Ordered EKG (ED Only) Stat Exams 11/21/24 13:56 Ordered XR chest 1V SEPSIS PROTOCOL Stat Exams 11/21/24 13:56 Completed B-Type Natriuretic Peptide Stat Lab 11/21/24 13:50 Completed Blood Culture (Lab) Stat Lab 11/21/24 13:50 Received CBC Stat Lab 11/21/24 13:50 Completed Comprehensive Metabolic Panel Stat Lab 11/21/24 13:50 Completed LDH (Lactate Dehydrogenase) Stat Lab 11/21/24 13:50 Completed Lactate (Lactic Acid) Stat Lab 11/21/24 13:50 Completed Lactic Acid, 3 HR Stat Lab 11/21/24 17:32 Completed Lipase Stat Lab 11/21/24 13:50 Completed Magnesium Stat Lab 11/21/24 13:50 Completed Partial Thromboplastin Time Stat Lab 11/21/24 13:50 Completed Phosphorous Stat Lab 11/21/24 13:50 Completed Procalcitonin Stat Lab 11/21/24 13:50 Completed Prothrombin Time with INR Stat Lab 11/21/24 13:50 Completed RSV [Respiratory Syncytial Virus Ag] Stat Lab 11/21/24 13:57 Ordered Troponin I Stat Lab 11/21/24 13:50 Completed Urinalysis Stat Lab 11/21/24 14:18 Completed Urine Culture Stat Lab 11/21/24 14:18 Received Azithromycin Inj [Zithromax Inj] 500 mg Med 11/21/24 15:55 Discontinued Sodium Chloride 0.9% 250 ml [Ns] 250 ml IV X1 Ibuprofen Tab [Motrin Tab] Med 11/21/24 13:56 Discontinued 600 mg PO X1 ONE Sodium Chloride 0.9% 500 ml [Ns] 500 ml Med 11/21/24 13:57 Discontinued IV 999 mls/hr cefTRIAXone/D5w 1gm IV premix [Rocephin/D5w 1gm IV Med 11/21/24 13:58 Discontinued premix] 1 gm in 50 ml IV X1 Oxygen Delivery NOW RT 11/21/24 13:56 Active Vital Signs Vital signs: Vital Signs Temperature 100.3 F 11/21/24 13:22 Pulse Rate 98 11/21/24 13:22 Respiratory Rate 17 11/21/24 13:22 Blood Pressure 155/69 H 11/21/24 13:22 Pulse Oximetry (%) 96 11/21/24 13:22 Oxygen Delivery Method Room Air 11/21/24 13:22 Fever MDM [address] [facility] Narrative:: 54-year-old female patient with significant history of diabetes mellitus hypertension, liver cirrhosis, ESRD on hemodialysis was brought in by EMS for evaluation regarding fever. Patient woke up this morning with bodyaches, chills, diaphoresis, not feeling well. Went to dialysis, she told me prior to putting her on dialysis she developed chills. Patient also complained of cough and left-sided chest pain. Especially on coughing. In the triage, patient was noted to have a fever of 103.3, heart rate of 94, and sepsis alert was initiated right away. EKG as interpreted by me showed cardiac dysrhythmia, with left bundle branch block, ventricular rate of 86 bpm, no ST segment elevation depression noted. I reviewed patient's previous EKG and showed left bundle branch block also. Patient's workup is significant for elevated lactic acid, Pro-Antwan is elevated, urinalysis no UTI and chest x-ray showed pneumonia possible. BNP is elevated 2245 creatinine also is chronically elevated. Today's creatinine was noted to be 2.8 Case discussed with hospitalist, who admitted the patient. Thank you Dr. Lin Patient data External records reviewed:: None Clinical information provided by:: patient Social determinants that could affect healthcare access:: none Patient has the following chronic illnesses:: ESRD, DM ,HTN How is presenting disease/condition affected by chronic disease/condition?: exacerbated by Evaluation data The following diagnostics were reviewed and interpreted by me:: lab results Lab and/or radiology exams considered but not ordered:: None Interpretation Summary: See results MDM Medications / Prescriptions Medications or Prescriptions considered but not ordered:: None Medication administrations:: Medication Administration History Acetaminophen (Acetaminophen 325 Mg Tablet) 650 mg PO Q6H PRN PRN Reason: pain and Fever >100.4 Stop: 12/21/24 17:15 Hydrocodone Bitart/Acetaminophen (Hydrocodone/Apap 5/325 Tablet) 1 tab PO Q4HR PRN PRN Reason: PAIN SCALE 4-10(Mod-Sev Stop: 11/26/24 17:15 Dextrose (Dextrose 50%-Water Inj 50 Ml Syringe) 25 ml IV Q15MIN PRN PRN Reason: BG 50-70 responsive npo pt Stop: 12/21/24 17:15 Dextrose (Dextrose 50%-Water Inj 50 Ml Syringe) 50 ml IV Q15MIN PRN PRN Reason: BG <50 OR BG <70 & pt unresponsive Stop: 12/21/24 17:15 Doxycycline Hyclate (Doxycycline 100 Mg Tablet) 100 mg PO BID LIU Stop: 11/28/24 20:59 Enoxaparin Sodium (Enoxaparin Sod Inj 40 Mg/0.4 Ml Syringe) 40 mg SC QDAY [facility] Stop: 12/06/24 08:59 Glucagon (Glucagon Inj 1 Mg Vial) 1 mg IM Q15MIN PRN PRN Reason: BG <70, and no IV access Ceftriaxone Sodium/Dextrose (Rocephin/D5w 1gm Iv Premix) 1 gm in 50 mls @ 100 mls/hr IV QDAY LIU Stop: 11/29/24 08:59 Insulin Human Lispro (Insulin Lispro (Admelog) 1 Unit/0.01 Ml Unit) 0 unit SC [facility]; Protocol Stop: 12/22/24 07:29 Ondansetron HCl (Ondansetron Inj 2 Mg/Ml Inj 2 Ml) 4 mg IV Q6H PRN; Protocol PRN Reason: NAUSEA OR VOMITING Stop: 12/21/24 17:15 Discontinued Medications Acetaminophen (Acetaminophen 325 Mg Tablet) 650 mg PO Q6H PRN PRN Reason: pain and Fever >100.4 Stop: 12/21/24 17:15 Sodium Chloride (Ns) 500 mls @ 999 mls/hr IV .Q31M ONE Stop: 11/21/24 14:27 Last Infusion: 11/21/24 15:15 Dose: Infused Documented By: Admin: 11/21/24 14:16 Dose: 999 mls/hr Documented By: YAW Ceftriaxone Sodium/Dextrose (Rocephin/D5w 1gm Iv Premix) 1 gm in 50 mls @ 100 mls/hr IV X1 ONE Stop: 11/21/24 14:27 Last Infusion: 11/21/24 15:15 Dose: Infused Documented By: Admin: 11/21/24 14:11 Dose: 100 mls/hr Documented By: YAW Azithromycin 500 mg/ Sodium (Chloride) 250 mls @ 250 mls/hr IV X1 ONE Stop: 11/21/24 16:54 Last Infusion: 11/21/24 17:21 Dose: Infused Documented By: Admin: 11/21/24 16:07 Dose: 250 mls/hr Documented By: YAW Sodium Chloride (Ns) 500 mls @ 999 mls/hr IV .Q31M ONE Stop: 11/21/24 17:46 Last Infusion: 11/21/24 18:13 Dose: Infused Documented By: Admin: 11/21/24 17:33 Dose: 999 mls/hr Documented By: YAW Ceftriaxone Sodium 2 gm/ (Sodium Chloride) 50 mls @ 100 mls/hr IV QDAY LIU Stop: 11/29/24 08:59 Ibuprofen (Ibuprofen Tab 600 Mg Tablet) 600 mg PO X1 ONE Stop: 11/21/24 13:57 Last Admin: 11/21/24 14:16 Dose: 600 mg Documented By: YAW Sodium Chloride (Sodium Chloride Rt 10% 15 Ml Nebu) 5 ml INH X1 ONE Stop: 11/21/24 17:37 Ceftriaxone IV Zithromax IV IV fluids and Motrin Consultations Consultation(s) initiated? (list below): No Diagnosis Fever Differential Diagnosis: fever of unknown origin and sepsis Most likely diagnosis given after review of the tests above:: Sepsis, pneumonia Admission Indicated Admission indicated?: indicated Admission Request Was there a request for admission?: Yes Admission Attestation Admission request attestation: Discussed case with [Dr. Lin] from Hospitalist service regarding admission. Discussed patients ED course, exam findings, labs, and radiology results. The Hospitalist [agrees] to accept the patient for admission. Disposition Plan Disposition Plan: Admit Discharge Plan Plan Patient Disposition: Admit Acute Care w/in Hospital Problem List Clinical Impression: Sepsis, Pneumonia
[2024-11-21] MEDS: cefTRIAXone/D5w 1gm IV premix 1 GM/50 ML BAG IV (14:11)
[2024-11-21] MEDS: IBUPROFEN TAB 600 MG TABLET PO (14:16)
[2024-11-21] MEDS: SODIUM CHLORIDE 0.9% 500 ML 500 ML 999 ML IV ×2 (14:16→17:33)
[2024-11-21 14:19] LABS: Lactate (Lactic Acid) 2.8 mMol/L (0.4-2.0)
[2024-11-21 14:20] LABS: Basophils % (Auto) 0 % (0-2.5); Eosinophils # (Auto) 0.1 Thou/mm3 (0.0-0.5); Eosinophils % (Auto) 1 % (0-10); Hematocrit 29.7 % (36.0-46.0); Hemoglobin 10.1 g/dL (12.0-16.0); Immature Granulocytes % (Auto) 0 % (0-0); Immature Granulocytes Auto 0.04 Thou/mm3 (0.00-0.00); Lymphocytes # (Auto) 0.5 Thou/mm3 (1.0-4.8); Lymphocytes % (Auto) 5 % (10-50); Mean Corpuscular Hemoglobin 31.2 pg (25.0-35.0); Mean Corpuscular Volume 92 fL (80-100); Monocytes # (Auto) 0.2 Thou/mm3 (0.0-0.8); Monocytes % (Auto) 2 % (0-12); Neutrophils % (Auto) 91 % (37-80); Nucleated Red Blood Cell % 0 /100 WBC (0); Platelet Count 185 Thou/mm3 (140-440); RDW Standard Deviation 45.5 fL (36.4-46.3); Red Blood Count 3.24 Miln/mm3 (4.00-5.20); White Blood Count 9.9 Thou/mm3 (3.6-11.0)
[2024-11-21 14:38] LABS: INR 1.1 (0.9-1.3); Partial Thromboplastin Time 27.3 Seconds (22.0-36.0); Prothrombin Time 12.1 Seconds (9.0-12.2)
[2024-11-21 14:51] LABS: Collection Type, Urine Catheter
[2024-11-21 14:52] LABS: B-Type Natriuretic Peptide 2245 pg/mL (0-100)
[2024-11-21 14:56] LABS: Bilirubin,Urine Negative (Negative); Blood,Urine 1+ (Negative); Clarity,Urine Clear (Clear/Hazy); Color,Urine Yellow (Lt Yel-Yel); Glucose, Urine 3+ (Negative); Ketones,Urine Negative (Negative); Leukocyte Esterase,Urine Negative (Negative); Nitrite,Urine Negative (Negative); PH,Urine 8.5 (5.0-7.0); Protein,Urine 3+ (Neg - Trace); RBC,Urine 4 /hpf (0-3); Specific Gravity,Urine 1.015 (1.001-1.035); Squamous Epithelial Cell,Urine < 1 /hpf (0-5); Urobilinogen,Urine Negative mg/dL (0.0-1.0); WBC,Urine 5 /hpf (0-5)
[2024-11-21 15:00] LABS: Alanine Aminotransferase < 7 U/L (10-49); Albumin, Serum 3.5 gm/dL (3.5-5.0); Albumin/Globulin Ratio 0.9 (1.2-2.2); Alkaline Phosphatase 111 U/L (46-116); Anion Gap 10 (7-16); Aspartate Amino Transferase 16 U/L (0-34); BUN/Creatinine Ratio 5 Ratio (12-20); Bilirubin,Total 1.7 mg/dL (0.3-1.2); Blood Urea Nitrogen 13 mg/dL (9-23); Calcium 8.4 mg/dL (8.3-10.6); Calcium (Corrected) 8.8 mg/dL (8.5-10.1); Carbon Dioxide 32.9 mMol/L (20.0-31.0); Chloride 96 mMol/L (98-107); Creatinine (Component) 2.8 mg/dL (0.6-1.3); Estimated Creatinine Clearance 20.1 mL/min (>60); Globulin 3.7 gm/dL (2.3-3.5); Glucose 107 mg/dL (74-106); LDH (Lactate Dehydrogenase) 289 U/L (120-246); Lipase 51 U/L (12-53); Magnesium 1.7 mg/dL (1.6-2.6); Osmolality,Calculated 277 (275-295); Phosphorous 2.2 mg/dL (2.4-5.1); Potassium 3.5 mMol/L (3.4-5.1); Procalcitonin 2.71 ng/ml (0.0-0.49); Sodium 139 mMol/L (136-145); Total Protein 7.2 gm/dL (5.7-8.2); Troponin I < 0.020 ng/mL (0.0-0.045); eGFR 20 See Note
[2024-11-21] MEDS: AZITHROMYCIN INJ 500 MG in SODIUM CHLORIDE 0.9% 250 ML 250 ML 250 MG IV (16:07)
[2024-11-21 17:14] LABS: Reflex Lactate? Y
[2024-11-21 17:44] LABS: Lactic Acid, 3 HR 2.8 mMol/L (0.4-2.0)
--- NOTE | 2024-11-21 17:44 | ESHP_ITS ---
Documentation for date of: 11/21/24 HPI History of Present Illness Chief complaint: cough, SOB History of present illness: 54-year-old female with past medical history of hypertension, DM2, HFpEF (EF 55% on 08/2024), and ESRD (HD on Tuesdays, , and Saturdays) was admitted to the hospital on 11/21/2024 after coming to the ED with chief complaint of bodyaches, chills, weakness, and not feeling well. Patient is a poor historian and preferred language was French. Patient stated that around 3 days ago she was having some cough as well as some nausea and shortness of breath, but this subsided shortly after. Today she woke up feeling cold and having chills and when she went to the hemodialysis she said that she felt very sick and decided to come to the ER. She did mention that her chronic wound on the right hip has not been supporting too much discharge and that she has been changing the dressings daily. She also stated that she did have some chest pain on the left thoracic wall. She denied any burning sensation urination or blood in the stools. She denies any abdominal pain, but did admit that she was having some nausea. She also mentioned that she is getting more short of breath and that her legs were swollen. Otherwise she had no new complaints. ED course: Initially came in febrile (103.3) and hypertensive. Initial labs were relevant for low hemoglobin (10.1), metabolic alkalosis (bicarb 32.9), lactic acidosis (2.8), hyperbilirubinemia (1.7), elevated lactate dehydrogenase (289), elevated procalcitonin (2.71), and elevated BNP (2245). Initial chest x-ray was remarkable for possible pulmonary edema versus pneumonia of right base. In the ED patient received a 500 mL bolus and 1 dose of Rocephin and azithromycin. PMH: As above Surgical Hx: Cataract surgery and kidney stones Social Hx denies any alcohol, smoking, drugs Medications: Patient states she takes metformin rest of medications pending reconciliation. Review of Systems Review of Systems Narrative Review of Systems: Constitutional: Denies sweats, Denies weight loss/gain, admits fever, Admits chills. HEENT: Denies hearing loss, Denies ear pain, Denies postnasal drip, Denies double vision, Denies blurry vision. Respiratory: Admits shortness of breath, Admits cough, Denies wheezing. Cardiovascular: Admits chest pain, Denies palpitations, Denies sudden loss of consciousness. GI: Denies blood in stool, Denies constipation, Denies abdominal pain, Denies difficulty swallowing, Admits nausea Denies vomit. : Denies urinary incontinence, Denies pain while urinating, Denies increased urinary frequency. MSK: Denies joint pain, Denies joint swelling, Denies numbness. Skin: Denies rash, Denies itching, Denies easy bruising. Neuro: Denies headaches, Denies dizziness, Denies seizures. Exam Vital Signs Temp Pulse Resp BP Pulse Ox O2 Del Method 98.4 F 80 17 100/53 L 95 Room Air 11/21/24 15:56 11/21/24 15:56 11/21/24 15:56 11/21/24 15:56 11/21/24 15:56 11/21/24 15:56 Narrative Exam General: A/O x3, no acute distress, ill-appearing, appears older than given age Eyes: PERRL, EOMI. Anicteric, vision grossly intact. Ears: No ear pain, no ear discharge, Hearing grossly intact. Nose: No nasal discharge. Mouth/Throat: Dry mucous membranes, no redness, no lesions. Neck: Neck supple, non-tender, no cervical lymphadenopathy. Lungs: Clear YNES to auscultation and percussion, No accessory muscle use. Cardio: Normal S1/S2, regular rhythm, no murmurs, no JVD Abdomen: Soft, non-tender, no palpable masses, peristalsis present, no guarding or rebound. Extremities: Symmetrical, no significant deformities, 1+ peripheral edema , non-tender, peripheral pulses presents, 1 cm circular wound to medial aspect of wound right lower extremity without any drainage and 1.5 cm circular wound on posterior aspect of the left heel. A 4 x 4 cm circular wound with clear borders and good granulation at borders at the lateral aspect of the right hip. Skin: No rashes, no lesions, warm to touch. Neuro: No focal neurological deficits. Motor and sensory intact Results: Labs 11/21/24 13:50 11/21/24 13:50 Labs: Short CBC 11/21/24 Range/Units 13:50 WBC 9.9 (3.6-11.0) Thou/mm3 Hgb 10.1 L (12.0-16.0) g/dL Hct 29.7 L (36.0-46.0) % Plt Count 185 (140-440) Thou/mm3 BMP 11/21/24 13:50 Sodium 139 Potassium 3.5 Chloride 96 L Carbon Dioxide 32.9 H BUN 13 Creatinine 2.8 H Glucose 107 H Calcium 8.4 Cardiac Enzymes 11/21/24 Range/Units 13:50 Troponin I < 0.020 (0.0-0.045) ng/mL Liver Function 11/21/24 Range/Units 13:50 Total Bilirubin 1.7 H (0.3-1.2) mg/dL AST 16 (0-34) U/L ALT < 7 L (10-49) U/L Alkaline Phosphatase 111 (46-116) U/L Albumin 3.5 (3.5-5.0) gm/dL Urine 11/21/24 Range/Units 14:18 Urine Color Yellow (Lt Yel-Yel) Urine Clarity Clear (Clear/Hazy) Urine pH 8.5 H (5.0-7.0) Ur Specific [place] 1.015 (1.001-1.035) Urine Protein 3+ A (Neg - Trace) Urine Glucose (UA) 3+ A (Negative) Quality Measures Quality Measures VTE prophylaxis Medications Home Medications and Allergies Allergies Allergy/AdvReac Type Severity Reaction Status Date / Time No Known Allergies Allergy Verified 11/21/24 13:31 Visit Medications Acetaminophen (Acetaminophen 325 Mg Tablet) 650 mg PO Q6H PRN PRN Reason: pain and Fever >100.4 Stop: 12/21/24 17:15 Hydrocodone Bitart/Acetaminophen (Hydrocodone/Apap 5/325 Tablet) 1 tab PO Q4HR PRN PRN Reason: PAIN SCALE 4-10(Mod-Sev Stop: 11/26/24 17:15 Dextrose (Dextrose 50%-Water Inj 50 Ml Syringe) 25 ml IV Q15MIN PRN PRN Reason: BG 50-70 responsive npo pt Stop: 12/21/24 17:15 Dextrose (Dextrose 50%-Water Inj 50 Ml Syringe) 50 ml IV Q15MIN PRN PRN Reason: BG <50 OR BG <70 & pt unresponsive Stop: 12/21/24 17:15 Doxycycline Hyclate (Doxycycline 100 Mg Tablet) 100 mg PO BID [facility] Stop: 11/28/24 20:59 Enoxaparin Sodium (Enoxaparin Sod Inj 40 Mg/0.4 Ml Syringe) 40 mg SC QDAY [facility] Stop: 12/06/24 08:59 Glucagon (Glucagon Inj 1 Mg Vial) 1 mg IM Q15MIN PRN PRN Reason: BG <70, and no IV access Sodium Chloride (Ns) 500 mls @ 999 mls/hr IV .Q31M ONE Stop: 11/21/24 17:46 Last Admin: 11/21/24 17:33 Dose: 999 mls/hr Ceftriaxone Sodium/Dextrose (Rocephin/D5w 1gm Iv Premix) 1 gm in 50 mls @ 100 mls/hr IV QDAY [facility] Stop: 11/29/24 08:59 Insulin Human Lispro (Insulin Lispro (Admelog) 1 Unit/0.01 Ml Unit) 0 unit SC AC [facility]; Protocol Stop: 12/22/24 07:29 Ondansetron HCl (Ondansetron Inj 2 Mg/Ml Inj 2 Ml) 4 mg IV Q6H PRN; Protocol PRN Reason: NAUSEA OR VOMITING Stop: 12/21/24 17:15 Discontinued Medications Acetaminophen (Acetaminophen 325 Mg Tablet) 650 mg PO Q6H PRN PRN Reason: pain and Fever >100.4 Stop: 12/21/24 17:15 Sodium Chloride (Ns) 500 mls @ 999 mls/hr IV .Q31M ONE Stop: 11/21/24 14:27 Last Infusion: 11/21/24 15:15 Dose: Infused Ceftriaxone Sodium/Dextrose (Rocephin/D5w 1gm Iv Premix) 1 gm in 50 mls @ 100 mls/hr IV X1 ONE Stop: 11/21/24 14:27 Last Infusion: 11/21/24 15:15 Dose: Infused Azithromycin 500 mg/ Sodium (Chloride) 250 mls @ 250 mls/hr IV X1 ONE Stop: 11/21/24 16:54 Last Infusion: 11/21/24 17:21 Dose: Infused Ceftriaxone Sodium 2 gm/ (Sodium Chloride) 50 mls @ 100 mls/hr IV QDAY [facility] Stop: 11/29/24 08:59 Ibuprofen (Ibuprofen Tab 600 Mg Tablet) 600 mg PO X1 ONE Stop: 11/21/24 13:57 Last Admin: 11/21/24 14:16 Dose: 600 mg Sodium Chloride (Sodium Chloride Rt 10% 15 Ml Nebu) 5 ml INH X1 ONE Stop: 11/21/24 17:37 Assessment & Plan Plan 54-year-old female with past medical history of hypertension, DM2, HFpEF (EF 55% on 08/2024), and ESRD (HD on Tuesdays, , and Saturdays) was admitted to hospital 11/21/2024 for community-acquired pneumonia and concern for sepsis. #Community-acquired pneumonia #Concern for sepsis Patient came in with complaints of cough and feeling unwell for the past few days. Patient's qSOFA score of 0 Patient x-ray did show some possible right base pneumonia Patient did spike a fever 103.3 Patient did meets SIRS criteria, but there is some lactic acidosis of 2.8 with elevated procalcitonin at 2.71 and source of possible infection therefore there is concern for sepsis. Got 500 mL bolus in the ED Influenza and COVID-negative No spikes in WBC Bedside echo showed dilated IVC, but still slightly compressible Plan: Doxycycline and Rocephin (11/21/2024?) Blood cultures ordered Sputum cultures ordered Additional 500 mL IV fluid bolus and no more afterwards. RSV pending Will continue to monitor #ESRD (HD on ) #Lactic acidosis #Metabolic alkalosis Patient last hemodialysis was today Patient does have a lactic acidosis of 2.8 and a bicarb of 32.9 This could be likely in the setting of possible infection BNP elevated at 2245 most likely given that she has an ESRD. Plan: Trend lactic Avoid nephrotoxic agents Renally dose medication Continue hemodialysis as scheduled Nephrology consulted, appreciate recommendations #Chronic decubitus ulcers Patient has an ulcer located on the right lateral hip which has clean borders and good granulation borders as well. She also has a small decubitus ulcer on her left heel and a venous stasis ulcer on her right lower extremity. This could also be contributing to the patient's current fevers, but this is less likely as these do not look infected. Plan: Doxycycline on board for staph coverage Wound care Will continue to monitor #Normocytic normochromic anemia Patient's hemoglobin 10.1 today and baseline is around 10-11 No active signs of bleeding Plan: Will transfuse hemoglobin less than 7 Will continue to monitor #Hx of DM2 Last A1c 7.1 on 08/2024 Plan: ISS Hypoglycemia protocol ordered Will continue monitor #Hx of HFpEF (EF 55% on 08/2024) #Hx of hypertension Patient's blood pressure is hanging around the lower end therefore we will hold off on antihypertensive medication for now Patient did come in with a BNP of 2245, but this could be given that she has ESRD. Patient does have around 1+ bilateral lower extremity edema and has been feeling short of breath Plan: Will hold off on diuresis for now as patient cannot be septic at this time and blood pressure has been on the lower end Have been giving gentle IV fluids given that patient could also be having some underlying CHF exacerbation Disposition: Patient admitted to [facility] for CAP, concern for sepsis. Diet: renal and carb low GI prophylaxis: not indicated DVT prophylaxis: lovenox Code: Full Case disclosed with Attending Dr. Delia Ro PGY1 Disclaimer: Even though this this note was dictated by speech recognition and even though it was carefully revised there may still be minor errors in order dispatcher chief due to voice recognition software. Attending Provider Attestation/Addendum I reviewed labs, imaging, EKG, home medications and prior available records. Face to face evaluation was performed by me. I have personally examined the patient and discussed assessment and plan with the IM team. I reviewed the resident note and agree with the plan with exceptions as below. Patient is a 54-year-old female with ESRD on hemodialysis and HFpEF who presented with a chief complaint of fevers and cough. She was found to have acute febrile illness with possible sepsis secondary to right lower lobe pneumonia Acute febrile illness, possible sepsis Possible right lower lobe pneumonia ESRD on hemodialysis Essential hypertension Type 2 diabetes mellitus Chronic decubitus ulcers HFpEF EF 55% Started IV ceftriaxone/doxycycline Send blood cultures Tylenol as needed for fevers Trend lactic acid Careful IV hydration in the setting of history of CHF and ESRD Consulted nephrology for routine hemodialysis
--- NOTE | 2024-11-21 19:42 | PC.NURSE ---
Report given MARLO Lord
[2024-11-21 20:19] LABS: Respiratory Syncytial Virus Ag Negative (Negative)
[2024-11-21] MEDS: DOXYCYCLINE 100 MG TABLET PO (20:44)
[2024-11-21] MEDS: ACETAMINOPHEN 325 MG TABLET 650 MG PO (22:51)
[2024-11-22] VITALS (12 sets, daily range): BP systolic 119–138; BP diastolic 56–79; PULSE 74–86; RESP 14–99; TEMP 36.4–36.8; O2SAT 92–100
--- NOTE | 2024-11-22 04:51 | PC.NURSE ---
Dr. Alberts made aware of preliminary result of blood culture (gram stain). MD to review patient's chart. No orders obtained at this time.
[2024-11-22] MEDS: cefTRIAXone 2 GM in SODIUM CHLORIDE 0.9% (Popper) 50 ML IV (05:11)
[2024-11-22 06:02] LABS: Basophils % (Auto) 0 % (0-2.5); Eosinophils # (Auto) 0.1 Thou/mm3 (0.0-0.5); Eosinophils % (Auto) 1 % (0-10); Hematocrit 30.6 % (36.0-46.0); Immature Granulocytes % (Auto) 1 % (0-0); Immature Granulocytes Auto 0.04 Thou/mm3 (0.00-0.00); Lymphocytes # (Auto) 0.8 Thou/mm3 (1.0-4.8); Lymphocytes % (Auto) 9 % (10-50); Mean Corpuscular HGB Conc 32.7 g/dl (31.0-37.0); Mean Corpuscular Hemoglobin 30.9 pg (25.0-35.0); Mean Corpuscular Volume 94 fL (80-100); Monocytes # (Auto) 0.5 Thou/mm3 (0.0-0.8); Monocytes % (Auto) 6 % (0-12); Neutrophils # (Auto) 7.4 Thou/mm3 (1.8-7.7); Neutrophils % (Auto) 83 % (37-80); Nucleated Red Blood Cell % 0 /100 WBC (0); Platelet Count 145 Thou/mm3 (140-440); RDW Standard Deviation 47.5 fL (36.4-46.3); Red Blood Count 3.24 Miln/mm3 (4.00-5.20); White Blood Count 8.9 Thou/mm3 (3.6-11.0)
[2024-11-22 06:46] LABS: Alanine Aminotransferase < 7 U/L (10-49); Albumin, Serum 3.4 gm/dL (3.5-5.0); Alkaline Phosphatase 103 U/L (46-116); Anion Gap 11 (7-16); Aspartate Amino Transferase 22 U/L (0-34); BUN/Creatinine Ratio 5 Ratio (12-20); Blood Urea Nitrogen 20 mg/dL (9-23); Calcium (Corrected) 9.5 mg/dL (8.5-10.1); Carbon Dioxide 29.6 mMol/L (20.0-31.0); Chloride 97 mMol/L (98-107); Creatinine (Component) 3.9 mg/dL (0.6-1.3); Estimated Creatinine Clearance 13.8 mL/min (>60); Globulin 3.5 gm/dL (2.3-3.5); Glucose 134 mg/dL (74-106); Osmolality,Calculated 280 (275-295); Sodium 138 mMol/L (136-145); Thyroid Stimulating Hormone 1.15 uIU/mL (0.55-4.78); Total Protein 6.9 gm/dL (5.7-8.2); eGFR 13 See Note
[2024-11-22] MEDS: DOXYCYCLINE 100 MG TABLET PO ×2 (07:44→20:07)
[2024-11-22] MEDS: ENOXAPARIN SOD INJ 40 MG/0.4 ML SYRINGE SC (07:44)
--- NOTE | 2024-11-22 07:44 | PC.SS ---
Patient Samantha Aguilar is a 54 Year old female admitted for Community Acquired Pneumonia and concerns for Sepsis. Patient reports she lives at home with family. Patient reports her surrogate decision maker is her Alin Aguilar [phone]. Patient reports she does not utilize any source of DME to assist with ambulation. Patient is able to complete all ADL's independently. She reports she utilizes home 02 as needed. [facility] choice [facility] and PCP is Julian Barker. At time of discharge patient wishes to return back home. Family will provide transportation. Next of Kin: , Alin Aguilar Discharge plan: Home
--- NOTE | 2024-11-22 07:53 | PD.RESPRO ---
Documentation for date of: 11/22/24 Subjective Subjective Interval history: Patient was seen and examined at bedside this morning. No acute overnight events. Patient has not spiked any fevers or WBC elevations. Patient's blood cultures grew GNR's in 1 out of 2 bottles Preliminary. Patient has no new complaints at this time. Otherwise hemoglobin is stable. Exam Vital Signs Temp Pulse Resp BP Pulse Ox O2 Del Method 97.5 F 77 14 119/56 L 99 Room Air 11/22/24 04:00 11/22/24 07:17 11/22/24 06:56 11/22/24 04:00 11/22/24 06:56 11/22/24 04:00 Narrative Exam General: A/O x3, no acute distress, ill-appearing, appears older than given age Eyes: PERRL, EOMI. Anicteric, vision grossly intact. Ears: No ear pain, no ear discharge, Hearing grossly intact. Nose: No nasal discharge. Mouth/Throat: Dry mucous membranes, no redness, no lesions. Neck: Neck supple, non-tender, no cervical lymphadenopathy. Lungs: Clear YNES to auscultation and percussion, No accessory muscle use. Cardio: Normal S1/S2, regular rhythm, no murmurs, no JVD Abdomen: Soft, non-tender, no palpable masses, peristalsis present, no guarding or rebound. Extremities: Symmetrical, no significant deformities, 1+ peripheral edema , non-tender, peripheral pulses presents, 1 cm circular wound to medial aspect of wound right lower extremity without any drainage and 1.5 cm circular wound on posterior aspect of the left heel. A 4 x 4 cm circular wound with clear borders and good granulation at borders at the lateral aspect of the right hip. Skin: No rashes, no lesions, warm to touch, ulcers covered with clean dressing Neuro: No focal neurological deficits. Motor and sensory intact Objective Labs 11/22/24 05:08 11/22/24 05:08 Labs: Laboratory Results - last 24 hr 11/21/24 11/21/24 11/21/24 13:50 14:18 17:32 WBC 9.9 RBC 3.24 L Hgb 10.1 L Hct 29.7 L MCV 92 MCH 31.2 MCHC 34.0 RDW Std Deviation 45.5 Plt Count 185 Neut % (Auto) 91 H Lymph % (Auto) 5 L [place] % (Auto) 2 Eos % (Auto) 1 Baso % (Auto) 0 Neut # (Auto) 9.0 H Lymph # (Auto) 0.5 L [place] # (Auto) 0.2 Eos # (Auto) 0.1 Baso # (Auto) 0.0 Immature Gran # (Auto) 0.04 H Absolute Nucleated RBC 0.00 Immature Gran % 0 Nucleated RBC % 0 PT 12.1 INR 1.1 APTT 27.3 Sodium 139 Potassium 3.5 Chloride 96 L Carbon Dioxide 32.9 H Anion Gap 10 BUN 13 Creatinine 2.8 H Estim Creat Clear Calc 20.1 L eGFR 20 L BUN/Creatinine Ratio 5 L Glucose 107 H Calculated Osmolality 277 Lactic Acid 2.8 H 2.8 H Calcium 8.4 Corrected Calcium 8.8 Phosphorus 2.2 L Magnesium 1.7 Total Bilirubin 1.7 H AST 16 ALT < 7 L Alkaline Phosphatase 111 Lactate Dehydrogenase 289 H Troponin I < 0.020 B-Natriuretic Peptide 2245 H* Total Protein 7.2 Albumin 3.5 Globulin 3.7 H Albumin/Globulin Ratio 0.9 L Lipase 51 Procalcitonin 2.71 H TSH Ur Collection Type Catheter Urine Color Yellow Urine Clarity Clear Urine pH 8.5 H Ur Specific [place] 1.015 Urine Protein 3+ A Urine Glucose (UA) 3+ A Urine Ketones Negative Urine Blood 1+ A Urine Nitrite Negative Urine Bilirubin Negative Urine Urobilinogen (Auto) Negative Ur Leukocyte Esterase Negative Urine RBC 4 H Urine WBC 5 Ur Squamous Epith Cells < 1 Urine Bacteria None RSV Rapid 11/21/24 11/22/24 19:55 05:08 WBC 8.9 RBC 3.24 L Hgb 10.0 L Hct 30.6 L MCV 94 MCH 30.9 MCHC 32.7 RDW Std Deviation 47.5 H Plt Count 145 D Neut % (Auto) 83 H Lymph % (Auto) 9 L [place] % (Auto) 6 Eos % (Auto) 1 Baso % (Auto) 0 Neut # (Auto) 7.4 Lymph # (Auto) 0.8 L [place] # (Auto) 0.5 Eos # (Auto) 0.1 Baso # (Auto) 0.0 Immature Gran # (Auto) 0.04 H Absolute Nucleated RBC 0.00 Immature Gran % 1 H Nucleated RBC % 0 PT INR APTT Sodium 138 Potassium 4.0 D Chloride 97 L Carbon Dioxide 29.6 Anion Gap 11 BUN 20 Creatinine 3.9 H D Estim Creat Clear Calc 13.8 L eGFR 13 L* BUN/Creatinine Ratio 5 L Glucose 134 H Calculated Osmolality 280 Lactic Acid Calcium 9.0 Corrected Calcium 9.5 Phosphorus Magnesium 2.0 Total Bilirubin 1.0 D AST 22 ALT < 7 L Alkaline Phosphatase 103 Lactate Dehydrogenase Troponin I B-Natriuretic Peptide Total Protein 6.9 Albumin 3.4 L Globulin 3.5 Albumin/Globulin Ratio 1.0 L Lipase Procalcitonin TSH 1.15 Ur Collection Type Urine Color Urine Clarity Urine pH Ur Specific [place] Urine Protein Urine Glucose (UA) Urine Ketones Urine Blood Urine Nitrite Urine Bilirubin Urine Urobilinogen (Auto) Ur Leukocyte Esterase Urine RBC Urine WBC Ur Squamous Epith Cells Urine Bacteria RSV Rapid Negative Quality Measures Quality Measures none Assessment & Plan Assessment Current Active Medications: Generic Name Dose Route Start Last Admin Trade Name Freq PRN Reason Stop Dose Admin Acetaminophen 650 mg 11/21/24 17:26 11/21/24 22:51 Acetaminophen 325 Mg Tablet PO 12/21/24 17:15 650 mg Q6H PRN Administration pain and Fever >100.4 Hydrocodone Bitart/Acetaminophen 1 tab 11/21/24 17:16 Hydrocodone/Apap 5/325 Tablet PO 11/26/24 17:15 Q4HR PRN PAIN SCALE 4-10(Mod-Sev Dextrose 25 ml 11/21/24 17:16 Dextrose 50%-Water Inj 50 Ml Syringe IV 12/21/24 17:15 Q15MIN PRN BG 50-70 responsive npo pt Dextrose 50 ml 11/21/24 17:16 Dextrose 50%-Water Inj 50 Ml Syringe IV 12/21/24 17:15 Q15MIN PRN BG <50 OR BG <70 & pt unresponsive Doxycycline Hyclate 100 mg 11/21/24 21:00 11/22/24 07:44 Doxycycline 100 Mg Tablet PO 11/28/24 20:59 100 mg BID LIU Administration Enoxaparin Sodium 40 mg 11/22/24 09:00 11/22/24 07:44 Enoxaparin Sod Inj 40 Mg/0.4 Ml Syringe SC 12/06/24 08:59 40 mg QDAY LIU Administration Glucagon 1 mg 11/21/24 17:16 Glucagon Inj 1 Mg Vial IM Q15MIN PRN BG <70, and no IV access Ceftriaxone Sodium/Dextrose 2 gm in 50 mls @ 100 mls/hr 11/23/24 09:00 Rocephin/D5w 2gm IV 11/29/24 08:59 QDAY [facility] Insulin Human Lispro 0 unit 11/22/24 07:30 11/22/24 07:43 Insulin Lispro (Admelog) 1 Unit/0.01 Ml Unit SC 12/22/24 07:29 Not Given AC [facility] Protocol Ondansetron HCl 4 mg 11/21/24 17:16 Ondansetron Inj 2 Mg/Ml Inj 2 Ml IV 12/21/24 17:15 Q6H PRN NAUSEA OR VOMITING Protocol Plan 54-year-old female with past medical history of hypertension, DM2, HFpEF (EF 55% on 08/2024), and ESRD (HD on Tuesdays, , and Saturdays) was admitted to hospital 11/21/2024 for community-acquired pneumonia and concern for sepsis. #Community-acquired pneumonia #GNR bacteremia? Patient came in with complaints of cough and feeling unwell for the past few days. Patient's qSOFA score of 0 Patient x-ray did show some possible right base pneumonia Patient did spike a fever 103.3 Patient did meets SIRS criteria, but there is some lactic acidosis of 2.8 with elevated procalcitonin at 2.71 and source of possible infection therefore there is concern for sepsis. Got 500 mL bolus in the ED Influenza and COVID-negative, RSV negative No spikes in WBC 11/21/2024 Bedside echo showed dilated IVC, but still slightly compressible Blood cultures grew GNR 1 out of 2 bottles preliminary. Plan: Doxycycline and Rocephin (11/21/2024?) Blood cultures pending Sputum cultures pending If spikes a fever or WBC will do Abd/pelv CT. Will continue to monitor #ESRD (HD on /SAT) #Lactic acidosis #Metabolic alkalosis Patient last hemodialysis was today Patient does have a lactic acidosis of 2.8 and a bicarb of 32.9 This could be likely in the setting of possible infection BNP elevated at 2245 most likely given that she has an ESRD. Plan: Avoid nephrotoxic agents Renally dose medication Continue hemodialysis as scheduled Nephrology consulted, appreciate recommendations #Chronic decubitus ulcers Patient has an ulcer located on the right lateral hip which has clean borders and good granulation borders as well. She also has a small decubitus ulcer on her left heel and a venous stasis ulcer on her right lower extremity. This could also be contributing to the patient's current fevers, but this is less likely as these do not look infected. Plan: Doxycycline on board for staph coverage Wound care Will continue to monitor #Normocytic normochromic anemia Patient's hemoglobin 10 today and baseline is around 10-11 No active signs of bleeding Plan: Will transfuse hemoglobin less than 7 Will continue to monitor #Hx of DM2 Last A1c 7.1 on 08/2024 Plan: ISS Hypoglycemia protocol ordered Will continue monitor #Hx of HFpEF (EF 55% on 08/2024) #Hx of hypertension Patient's blood pressure is hanging around the lower end therefore we will hold off on antihypertensive medication for now Patient did come in with a BNP of 2245, but this could be given that she has ESRD. Patient does have around 1+ bilateral lower extremity edema and has been feeling short of breath Plan: Will hold off on diuresis for now as patient cannot be septic at this time and blood pressure has been on the lower end Have been giving gentle IV fluids given that patient could also be having some underlying CHF exacerbation Disposition: Pending blood cultures Diet: renal and carb low GI prophylaxis: not indicated DVT prophylaxis: lovenox Code: Full Case disclosed with Attending Dr. Delia Ro PGY1 Disclaimer: Even though this this note was dictated by speech recognition and even though it was carefully revised there may still be minor errors in chicken and fish butcher due to voice recognition software. Attending Provider Attestation/Addendum I reviewed labs, imaging, EKG, home medications and prior available records. Face to face evaluation was performed by me. I have personally examined the patient and discussed assessment and plan with the IM team. I reviewed the resident note and agree with the plan with exceptions as below. Patient is a 54-year-old female with ESRD on hemodialysis and HFpEF who presented with a chief complaint of fevers and cough. She was found to have acute febrile illness with possible sepsis secondary to right lower lobe pneumonia Acute febrile illness, possible sepsis Possible right lower lobe pneumonia ESRD on hemodialysis Essential hypertension Type 2 diabetes mellitus Chronic decubitus ulcers HFpEF EF 55% Started IV ceftriaxone/doxycycline Sent blood cultures: Showed gram-negative rods. Follow-up identification/sensitivity Tylenol as needed for fevers Trend lactic acid: Downtrending Consulted nephrology for routine hemodialysis
[2024-11-22 08:55] LABS: Lactate (Lactic Acid) 1.9 mMol/L (0.4-2.0)
[2024-11-22] MEDS: INSULIN LISPRO (AdmeLOG) 1 UNIT/0.01 ML UNIT SC (11:13)
--- NOTE | 2024-11-22 16:36 | PC.NURSE ---
[facility] on 11/22/2024 from [id number].
[2024-11-22] MEDS: ONDANSETRON INJ 2 MG/ML INJ 2 ML 4 MG IV (21:16)
[2024-11-22] MEDS: LOPERAMIDE 2 MG CAPSULE 4 MG PO (21:27)
[2024-11-23] VITALS (9 sets, daily range): BP systolic 123–166; BP diastolic 62–85; PULSE 73–89; RESP 16–99; TEMP 36.1–36.8; O2SAT 98–100
[2024-11-23] MEDS: LOPERAMIDE 2 MG CAPSULE PO ×2 (04:02→14:43)
[2024-11-23 06:54] LABS: Basophils % (Auto) 0 % (0-2.5); Eosinophils # (Auto) 0.1 Thou/mm3 (0.0-0.5); Eosinophils % (Auto) 1 % (0-10); Hematocrit 27.6 % (36.0-46.0); Hemoglobin 9.1 g/dL (12.0-16.0); Immature Granulocytes % (Auto) 1 % (0-0); Immature Granulocytes Auto 0.05 Thou/mm3 (0.00-0.00); Lymphocytes # (Auto) 1.3 Thou/mm3 (1.0-4.8); Lymphocytes % (Auto) 17 % (10-50); Mean Corpuscular Volume 94 fL (80-100); Monocytes # (Auto) 0.7 Thou/mm3 (0.0-0.8); Monocytes % (Auto) 9 % (0-12); Neutrophils # (Auto) 5.9 Thou/mm3 (1.8-7.7); Neutrophils % (Auto) 73 % (37-80); Nucleated Red Blood Cell % 0 /100 WBC (0); Platelet Count 127 Thou/mm3 (140-440); RDW Standard Deviation 48.6 fL (36.4-46.3); Red Blood Count 2.94 Miln/mm3 (4.00-5.20)
[2024-11-23 07:43] LABS: Alanine Aminotransferase < 7 U/L (10-49); Albumin, Serum 3.3 gm/dL (3.5-5.0); Alkaline Phosphatase 94 U/L (46-116); Anion Gap 12 (7-16); Aspartate Amino Transferase 14 U/L (0-34); BUN/Creatinine Ratio 7 Ratio (12-20); Bilirubin,Total 0.7 mg/dL (0.3-1.2); Blood Urea Nitrogen 39 mg/dL (9-23); Calcium 8.7 mg/dL (8.3-10.6); Calcium (Corrected) 9.3 mg/dL (8.5-10.1); Carbon Dioxide 27.7 mMol/L (20.0-31.0); Chloride 95 mMol/L (98-107); Creatinine (Component) 5.4 mg/dL (0.6-1.3); Globulin 3.3 gm/dL (2.3-3.5); Glucose 103 mg/dL (74-106); Magnesium 2.1 mg/dL (1.6-2.6); Osmolality,Calculated 279 (275-295); Potassium 4.1 mMol/L (3.4-5.1); Sodium 135 mMol/L (136-145); Total Protein 6.6 gm/dL (5.7-8.2); eGFR 9 See Note
[2024-11-23] MEDS: ENOXAPARIN SOD INJ 40 MG/0.4 ML SYRINGE SC (08:21)
[2024-11-23] MEDS: DOXYCYCLINE 100 MG TABLET PO ×2 (08:21→20:45)
[2024-11-23] MEDS: cefTRIAXone/D5w 2gm 2 GM/50 ML BAG IV (08:21)
--- NOTE | 2024-11-23 09:52 | PD.RESPRO ---
Documentation for date of: 11/23/24 Subjective Subjective Interval history: Patient was seen and examined at bedside this morning. No acute overnight events. Patient did not spike any fevers or WBCs elevation. Patient did have some diarrhea noted yesterday and she was given loperamide during the night which seemed to help. Patient has been having diarrhea chronically per chart review and were cramping negative for C. difficile in the past. Patient's blood culture did come back with GNR and 2 out of 2 cultures. Will not change patient's current management as patient has been stable. Will continue to monitor. Exam Vital Signs Temp Pulse Resp BP Pulse Ox O2 Del Method 97.1 F 89 16 141/71 H 99 Room Air 11/23/24 08:00 11/23/24 08:00 11/23/24 08:00 11/23/24 08:00 11/23/24 08:00 11/23/24 08:00 Narrative Exam General: A/O x3, no acute distress, ill-appearing, appears older than given age Eyes: PERRL, EOMI. Anicteric, vision grossly intact. Ears: No ear pain, no ear discharge, Hearing grossly intact. Nose: No nasal discharge. Mouth/Throat: Dry mucous membranes, no redness, no lesions. Neck: Neck supple, non-tender, no cervical lymphadenopathy. Lungs: Clear YNES to auscultation and percussion, No accessory muscle use. Cardio: Normal S1/S2, regular rhythm, no murmurs, no JVD Abdomen: Soft, non-tender, no palpable masses, peristalsis present, no guarding or rebound. Extremities: Symmetrical, no significant deformities, 1+ peripheral edema , non-tender, peripheral pulses presents, 1 cm circular wound to medial aspect of wound right lower extremity without any drainage and 1.5 cm circular wound on posterior aspect of the left heel. A 4 x 4 cm circular wound with clear borders and good granulation at borders at the lateral aspect of the right hip. Skin: No rashes, no lesions, warm to touch, ulcers covered with clean dressing Neuro: No focal neurological deficits. Motor and sensory intact Objective Labs 11/23/24 04:37 11/23/24 04:37 Labs: Laboratory Results - last 24 hr 11/23/24 04:37 WBC 8.0 RBC 2.94 L Hgb 9.1 L Hct 27.6 L MCV 94 MCH 31.0 MCHC 33.0 RDW Std Deviation 48.6 H Plt Count 127 L Neut % (Auto) 73 Lymph % (Auto) 17 [place] % (Auto) 9 Eos % (Auto) 1 Baso % (Auto) 0 Neut # (Auto) 5.9 Lymph # (Auto) 1.3 [place] # (Auto) 0.7 Eos # (Auto) 0.1 Baso # (Auto) 0.0 Immature Gran # (Auto) 0.05 H Absolute Nucleated RBC 0.00 Immature Gran % 1 H Nucleated RBC % 0 Sodium 135 L Potassium 4.1 Chloride 95 L Carbon Dioxide 27.7 Anion Gap 12 BUN 39 H Creatinine 5.4 H* D Estim Creat Clear Calc 10.0 L eGFR 9 L* BUN/Creatinine Ratio 7 L Glucose 103 Calculated Osmolality 279 Calcium 8.7 Corrected Calcium 9.3 Magnesium 2.1 Total Bilirubin 0.7 AST 14 ALT < 7 L Alkaline Phosphatase 94 Total Protein 6.6 Albumin 3.3 L Globulin 3.3 Albumin/Globulin Ratio 1.0 L Quality Measures Quality Measures none Assessment & Plan Assessment Current Active Medications: Generic Name Dose Route Start Last Admin Trade Name Freq PRN Reason Stop Dose Admin Acetaminophen 650 mg 11/21/24 17:26 11/21/24 22:51 Acetaminophen 325 Mg Tablet PO 12/21/24 17:15 650 mg Q6H PRN Administration pain and Fever >100.4 Hydrocodone Bitart/Acetaminophen 1 tab 11/21/24 17:16 Hydrocodone/Apap 5/325 Tablet PO 11/26/24 17:15 Q4HR PRN PAIN SCALE 4-10(Mod-Sev Dextrose 25 ml 11/21/24 17:16 Dextrose 50%-Water Inj 50 Ml Syringe IV 12/21/24 17:15 Q15MIN PRN BG 50-70 responsive npo pt Dextrose 50 ml 11/21/24 17:16 Dextrose 50%-Water Inj 50 Ml Syringe IV 12/21/24 17:15 Q15MIN PRN BG <50 OR BG <70 & pt unresponsive Doxycycline Hyclate 100 mg 11/21/24 21:00 11/23/24 08:21 Doxycycline 100 Mg Tablet PO 11/28/24 20:59 100 mg BID LIU Administration Enoxaparin Sodium 40 mg 11/22/24 09:00 11/23/24 08:21 Enoxaparin Sod Inj 40 Mg/0.4 Ml Syringe SC 12/06/24 08:59 40 mg QDAY LIU Administration Glucagon 1 mg 11/21/24 17:16 Glucagon Inj 1 Mg Vial IM Q15MIN PRN BG <70, and no IV access Ceftriaxone Sodium/Dextrose 2 gm in 50 mls @ 100 mls/hr 11/23/24 09:00 11/23/24 08:21 Rocephin/D5w 2gm IV 11/29/24 08:59 100 mls/hr QDAY LIU Administration Insulin Human Lispro 0 unit 11/22/24 07:30 11/23/24 07:38 Insulin Lispro (Admelog) 1 Unit/0.01 Ml Unit SC 12/22/24 07:29 Not Given AC [facility] Protocol Loperamide HCl 2 mg 11/23/24 04:00 11/23/24 04:02 Loperamide 2 Mg Capsule PO 11/30/24 03:59 2 mg Q6HR PRN Administration Diarrhea Ondansetron HCl 4 mg 11/21/24 17:16 11/22/24 21:16 Ondansetron Inj 2 Mg/Ml Inj 2 Ml IV 12/21/24 17:15 4 mg Q6H PRN Administration NAUSEA OR VOMITING Protocol Plan 54-year-old female with past medical history of hypertension, DM2, HFpEF (EF 55% on 08/2024), and ESRD (HD on Tuesdays, , and Saturdays) was admitted to hospital 11/21/2024 for community-acquired pneumonia and concern for sepsis. #Community-acquired pneumonia #GNR bacteremia? Patient came in with complaints of cough and feeling unwell for the past few days. Patient's qSOFA score of 0 Patient x-ray did show some possible right base pneumonia Patient did spike a fever 103.3 Patient did meets SIRS criteria, but there is some lactic acidosis of 2.8 with elevated procalcitonin at 2.71 and source of possible infection therefore there is concern for sepsis. Got 500 mL bolus in the ED Influenza and COVID-negative, RSV negative No spikes in WBC 11/21/2024 Bedside echo showed dilated IVC, but still slightly compressible Blood cultures grew GNR 2 out of 2 bottles. Plan: Doxycycline and Rocephin (11/21/2024?) Blood cultures sensitivity pending Sputum cultures pending Will continue to monitor #ESRD (HD on /SAT) #Lactic acidosis #Metabolic alkalosis Patient last hemodialysis was today Patient does have a lactic acidosis of 2.8 and a bicarb of 32.9 This could be likely in the setting of possible infection BNP elevated at 2245 most likely given that she has an ESRD. Plan: Avoid nephrotoxic agents Renally dose medication Continue hemodialysis as scheduled Nephrology consulted, appreciate recommendations #Chronic decubitus ulcers Patient has an ulcer located on the right lateral hip which has clean borders and good granulation borders as well. She also has a small decubitus ulcer on her left heel and a venous stasis ulcer on her right lower extremity. This could also be contributing to the patient's current fevers, but this is less likely as these do not look infected. Plan: Doxycycline on board for staph coverage Wound care Will continue to monitor #Normocytic normochromic anemia Patient's hemoglobin 9.1 today and baseline is around 10-11 No active signs of bleeding Plan: Will transfuse hemoglobin less than 7 Will continue to monitor #Diarrhea Patient has been having some episodes of diarrhea yesterday and on chart review patient has been suffering from diarrhea chronically. Previous workup for diarrhea have been inconclusive Plan: Loperamide as needed #Hx of DM2 Last A1c 7.1 on 08/2024 Plan: ISS Hypoglycemia protocol ordered Will continue monitor #Hx of HFpEF (EF 55% on 08/2024) #Hx of hypertension Patient's blood pressure is hanging around the lower end therefore we will hold off on antihypertensive medication for now Patient did come in with a BNP of 2245, but this could be given that she has ESRD. Patient does have around 1+ bilateral lower extremity edema and has been feeling short of breath Plan: Does not seem fluid overloaded therefore will hold off diuresis Disposition: Pending blood cultures sensitivity Diet: renal and carb low GI prophylaxis: not indicated DVT prophylaxis: lovenox Code: Full Case disclosed with Attending Dr. Delia Ro PGY1 Disclaimer: Even though this this note was dictated by speech recognition and even though it was carefully revised there may still be minor errors in parachute cushion installer due to voice recognition software. Attending Provider Attestation/Addendum I reviewed labs, imaging, EKG, home medications and prior available records. Face to face evaluation was performed by me. I have personally examined the patient and discussed assessment and plan with the IM team. I reviewed the resident note and agree with the plan with exceptions as below. Patient is a 54-year-old female with ESRD on hemodialysis and HFpEF who presented with a chief complaint of fevers and cough. She was found to have acute febrile illness with possible sepsis secondary to right lower lobe pneumonia Sepsis secondary to gram-negative bacteremia Possibly secondary to right lower lobe pneumonia versus less likely UTI ESRD on hemodialysis Essential hypertension Type 2 diabetes mellitus Chronic decubitus ulcers HFpEF EF 55% Started IV ceftriaxone/doxycycline Sent blood cultures: Showed gram-negative rods. Follow-up identification/sensitivity Tylenol as needed for fevers Trend lactic acid: Downtrending Consulted nephrology for routine hemodialysis
[2024-11-23] MEDS: ONDANSETRON INJ 2 MG/ML INJ 2 ML 4 MG IV ×2 (11:39→19:53)
--- NOTE | 2024-11-23 15:29 | PC.SS ---
SS follow up note; Pending Blood cultures, patient is on IV ABX. Patient will return back home when medically cleared.
[2024-11-23] MEDS: SCOPOLAMINE 1 MG TDSY TOP (17:20)
--- NOTE | 2024-11-23 17:46 | PC.NURSE ---
pt continues to complain of nausea/vomiting at 1645 after giving zofran at 1139 today. called MD to notify at 1649, new order given.
[2024-11-24] VITALS (24 sets, daily range): BP systolic 96–168; BP diastolic 65–88; PULSE 75–81; RESP 16–100; TEMP 36–36.3; O2SAT 96–100
[2024-11-24 05:49] LABS: Basophils % (Auto) 0 % (0-2.5); Eosinophils % (Auto) 0 % (0-10); Hematocrit 29.7 % (36.0-46.0); Hemoglobin 9.9 g/dL (12.0-16.0); Immature Granulocytes % (Auto) 0 % (0-0); Immature Granulocytes Auto 0.04 Thou/mm3 (0.00-0.00); Lymphocytes # (Auto) 1.3 Thou/mm3 (1.0-4.8); Lymphocytes % (Auto) 13 % (10-50); Mean Corpuscular HGB Conc 33.3 g/dl (31.0-37.0); Mean Corpuscular Volume 93 fL (80-100); Monocytes # (Auto) 0.4 Thou/mm3 (0.0-0.8); Monocytes % (Auto) 4 % (0-12); Neutrophils # (Auto) 7.9 Thou/mm3 (1.8-7.7); Neutrophils % (Auto) 82 % (37-80); Nucleated Red Blood Cell % 0 /100 WBC (0); Platelet Count 137 Thou/mm3 (140-440); RDW Standard Deviation 48.8 fL (36.4-46.3); Red Blood Count 3.19 Miln/mm3 (4.00-5.20); White Blood Count 9.7 Thou/mm3 (3.6-11.0)
[2024-11-24 06:33] LABS: Alanine Aminotransferase 8 U/L (10-49); Albumin, Serum 3.4 gm/dL (3.5-5.0); Albumin/Globulin Ratio 0.9 (1.2-2.2); Alkaline Phosphatase 96 U/L (46-116); Anion Gap 20 (7-16); Aspartate Amino Transferase 26 U/L (0-34); BUN/Creatinine Ratio 8 Ratio (12-20); Bilirubin,Total 0.8 mg/dL (0.3-1.2); Blood Urea Nitrogen 55 mg/dL (9-23); Calcium 8.7 mg/dL (8.3-10.6); Calcium (Corrected) 9.2 mg/dL (8.5-10.1); Carbon Dioxide 22.9 mMol/L (20.0-31.0); Chloride 94 mMol/L (98-107); Creatinine (Component) 6.8 mg/dL (0.6-1.3); Estimated Creatinine Clearance 7.9 mL/min (>60); Globulin 3.8 gm/dL (2.3-3.5); Glucose 130 mg/dL (74-106); Magnesium 2.3 mg/dL (1.6-2.6); Osmolality,Calculated 290 (275-295); Sodium 137 mMol/L (136-145); Total Protein 7.2 gm/dL (5.7-8.2); eGFR 7 See Note
--- NOTE | 2024-11-24 09:22 | PC.SS ---
SS follow up note; Pending blood cultures, on IV ABX. Possibe discharge home today.
--- NOTE | 2024-11-24 09:24 | PD.RESCONSUL ---
HPI Data of Consult Consult date: 11/21/24 Requesting Physician: Charles Steele MD Admitting Provider: Kevan Lin MD Attending Provider: Charles Steele MD Primary Care Provider: Physician No Primary/Family Consult Narrative Reason for consult: ESRD on dialysis History of present illness: 54-year-old female with past medical history of hypertension, DM2, HFpEF (EF 55% on 08/2024), and ESRD (HD on Tuesdays, , and Saturdays) was admitted to the hospital on 11/21/2024 after coming to the ED with chief complaint of bodyaches, chills, weakness, and not feeling well. Patient is a poor historian. She woke up feeling cold and having chills and when she went to the hemodialysis she said that she felt very sick and decided to come to the ER. She did mention that her chronic wound on the right hip has not been supporting too much discharge and that she has been changing the dressings daily. She also stated that she did have some chest pain on the left thoracic wall. She denied any burning sensation urination or blood in the stools. She denies any abdominal pain, but did admit that she was having some nausea. She also mentioned that she is getting more short of breath and that her legs were swollen. Otherwise she had no new complaints. Nephrology consulted for management of dialysis for ESRD. Patient to be receiving dialysis inpatient as per usual schedule (). 11/24/2024: Patient seen and examined during dialysis, resting comfortably. Patient did endorse generalized malaise, otherwise doing well. WBC 9.7, hemoglobin 9.9, sodium 137, potassium 5.0, bicarb 22.9, BUN 55, creatinine 6.8, EGFR 7. Will complete dialysis with fluid removal, continue as per patient's usual schedule. cc:: cc: Charles Steele MD Review of Systems Review of Systems Systems Reviewed: All systems reviewed, normal except as documented Exam Vital Signs Temp Pulse Resp BP Pulse Ox O2 Del Method 97.3 F 79 16 149/80 H 99 Room Air 11/24/24 07:58 11/24/24 09:15 11/24/24 07:58 11/24/24 09:15 11/24/24 07:58 11/24/24 07:58 Narrative Exam PE: Gen: Well-developed and well-nourished. HEENT: NCAT, PERRLA, EOMI, MMM, anicteric conjunctivae. CVS: normal S1 and S2. RRR. No M/R/G. Resp: CTA B/L. No rhonchi, rales, crackles or wheezing. Abd: soft, non-tender, non-distended. MSK: Good ROM in BUE & BLE. No rash. 1+ pitting edema BLE. Left hip wound. Neuro: CN II-XII grossly intact. Strength 5/5 in BUE & BLE. Alert and oriented x3. Psych: appropriate mood and affect. Results Labs 11/24/24 04:47 11/24/24 04:47 Labs: Short CBC 11/24/24 Range/Units 04:47 WBC 9.7 (3.6-11.0) Thou/mm3 Hgb 9.9 L (12.0-16.0) g/dL Hct 29.7 L (36.0-46.0) % Plt Count 137 L (140-440) Thou/mm3 BMP 11/24/24 04:47 Sodium 137 Potassium 5.0 D Chloride 94 L Carbon Dioxide 22.9 BUN 55 H Creatinine 6.8 H* D Glucose 130 H Calcium 8.7 Liver Function 11/24/24 Range/Units 04:47 Total Bilirubin 0.8 (0.3-1.2) mg/dL AST 26 (0-34) U/L ALT 8 L (10-49) U/L Alkaline Phosphatase 96 (46-116) U/L Albumin 3.4 L (3.5-5.0) gm/dL Quality Measures Quality Measures VTE prophylaxis Medications Home Medications and Allergies Allergies Allergy/AdvReac Type Severity Reaction Status Date / Time No Known Allergies Allergy Verified 11/21/24 13:31 Visit Medications Acetaminophen (Acetaminophen 325 Mg Tablet) 650 mg PO Q6H PRN PRN Reason: pain and Fever >100.4 Stop: 12/21/24 17:15 Last Admin: 11/21/24 22:51 Dose: 650 mg Hydrocodone Bitart/Acetaminophen (Hydrocodone/Apap 5/325 Tablet) 1 tab PO Q4HR PRN PRN Reason: PAIN SCALE 4-10(Mod-Sev Stop: 11/26/24 17:15 Dextrose (Dextrose 50%-Water Inj 50 Ml Syringe) 25 ml IV Q15MIN PRN PRN Reason: BG 50-70 responsive npo pt Stop: 12/21/24 17:15 Dextrose (Dextrose 50%-Water Inj 50 Ml Syringe) 50 ml IV Q15MIN PRN PRN Reason: BG <50 OR BG <70 & pt unresponsive Stop: 12/21/24 17:15 Doxycycline Hyclate (Doxycycline 100 Mg Tablet) 100 mg PO BID [facility] Stop: 11/28/24 20:59 Last Admin: 11/23/24 20:45 Dose: 100 mg Enoxaparin Sodium (Enoxaparin Sod Inj 40 Mg/0.4 Ml Syringe) 40 mg SC QDAY [facility] Stop: 12/06/24 08:59 Last Admin: 11/23/24 08:21 Dose: 40 mg Epoetin Darrell (Epoetin Darrell Inj 1,000 Unit/0.05 Ml Unit) 10,000 unit SC X1 ONE Stop: 11/24/24 10:01 Glucagon (Glucagon Inj 1 Mg Vial) 1 mg IM Q15MIN PRN PRN Reason: BG <70, and no IV access Hydralazine HCl (Hydralazine Inj 20 Mg/Ml Vial) 10 mg IV Q6H PRN PRN Reason: SBP > 180 and HR < 70 Stop: 12/23/24 18:29 Ceftriaxone Sodium/Dextrose (Rocephin/D5w 2gm) 2 gm in 50 mls @ 100 mls/hr IV QDAY [facility] Stop: 11/29/24 08:59 Last Admin: 11/23/24 08:21 Dose: 100 mls/hr Insulin Human Lispro (Insulin Lispro (Admelog) 1 Unit/0.01 Ml Unit) 0 unit SC [facility]; Protocol Stop: 12/22/24 07:29 Last Admin: 11/23/24 17:08 Dose: Not Given Loperamide HCl (Loperamide 2 Mg Capsule) 2 mg PO Q6HR PRN PRN Reason: Diarrhea Stop: 11/30/24 03:59 Last Admin: 11/23/24 14:43 Dose: 2 mg Ondansetron HCl (Ondansetron Inj 2 Mg/Ml Inj 2 Ml) 4 mg IV Q6H PRN; Protocol PRN Reason: NAUSEA OR VOMITING Stop: 12/21/24 17:15 Last Admin: 11/23/24 19:53 Dose: 4 mg Scopolamine (Scopolamine 1 Mg Tdsy) 1 mg TOP Q3D LIU Stop: 12/23/24 16:59 Last Admin: 11/23/24 17:20 Dose: 1 mg Discontinued Medications Acetaminophen (Acetaminophen 325 Mg Tablet) 650 mg PO Q6H PRN PRN Reason: pain and Fever >100.4 Stop: 12/21/24 17:15 Hydralazine HCl (Hydralazine Inj 20 Mg/Ml Vial) 10 mg IV X1 ONE Stop: 11/23/24 18:04 Sodium Chloride (Ns) 500 mls @ 999 mls/hr IV .Q31M ONE Stop: 11/21/24 14:27 Last Infusion: 11/21/24 15:15 Dose: Infused Ceftriaxone Sodium/Dextrose (Rocephin/D5w 1gm Iv Premix) 1 gm in 50 mls @ 100 mls/hr IV X1 ONE Stop: 11/21/24 14:27 Last Infusion: 11/21/24 15:15 Dose: Infused Azithromycin 500 mg/ Sodium (Chloride) 250 mls @ 250 mls/hr IV X1 ONE Stop: 11/21/24 16:54 Last Infusion: 11/21/24 17:21 Dose: Infused Sodium Chloride (Ns) 500 mls @ 999 mls/hr IV .Q31M ONE Stop: 11/21/24 17:46 Last Infusion: 11/21/24 18:13 Dose: Infused Ceftriaxone Sodium 2 gm/ (Sodium Chloride) 50 mls @ 100 mls/hr IV QDAY LIU Stop: 11/29/24 08:59 Ceftriaxone Sodium/Dextrose (Rocephin/D5w 1gm Iv Premix) 1 gm in 50 mls @ 100 mls/hr IV QDAY LIU Stop: 11/29/24 08:59 Ceftriaxone Sodium 2 gm/ (Sodium Chloride) 50 mls @ 100 mls/hr IV QDAY LIU Stop: 11/29/24 04:59 Last Admin: 11/22/24 05:11 Dose: 100 mls/hr Ibuprofen (Ibuprofen Tab 600 Mg Tablet) 600 mg PO X1 ONE Stop: 11/21/24 13:57 Last Admin: 11/21/24 14:16 Dose: 600 mg Loperamide HCl (Loperamide 2 Mg Capsule) 4 mg PO X1 ONE Stop: 11/22/24 21:01 Last Admin: 11/22/24 21:27 Dose: 4 mg Sodium Chloride (Sodium Chloride Rt 10% 15 Ml Nebu) 5 ml INH X1 ONE Stop: 11/21/24 17:37 Assessment & Plan Plan 54-year-old female with past medical history of hypertension, DM2, HFpEF (EF 55% on 08/2024), and ESRD (HD on Tuesdays, , and Saturdays) was admitted to hospital 11/21/2024 for community-acquired pneumonia and concern for sepsis. Nephrology consulted for management of ESRD on dialysis. #ESRD (HD on ) Patient last hemodialysis was today. Patient does have a lactic acidosis of 2.8 and a bicarb of 32.9, this could be likely in the setting of possible infection. BNP elevated at 2245 most likely given that she has an ESRD. Lactic acidosis and metabolic acidosis resolved with dialysis sessions. - Avoid nephrotoxic agents - Renally dose medication - Continue hemodialysis as per usual schedule #Community-acquired pneumonia #GNR bacteremia #Chronic decubitus ulcers #Normocytic normochromic anemia #Diarrhea #Hx of DM2 #Hx of HFpEF (EF 55% on 08/2024) #Hx of hypertension Management as per primary team. Thank you for allowing us to participate in the care of this patient. Plan of care discussed with attending Dr. Yap. Edward Ivy MD PGY?1 Attending Provider Attestation/Addendum Patient seen and examined with resident physician Dr. Sharpe. Note reviewed, agree with findings and recommendations. patient currently seen on dialysis. Tolerating dialysis without any problems. Hemodialysis for 3 hours, 2K, ultrafiltration 2-2.5 L, Epogen 6000, no heparin ordered. Plan of care discussed with the dialysis nurse. Please see dialysis flowsheet for further details.
[2024-11-24] MEDS: EPOETIN ALFA INJ 1,000 UNIT/0.05 ML UNIT 10000 UNIT SC (11:20)
--- NOTE | 2024-11-24 12:02 | PD.RESDS ---
Planned Discharge Date 11/24/24 DS: Providers Provider Date of admission: 11/21/24 17:16 Primary care physician: Physician No Primary/Family Admitting Provider: Kevan Lin MD Attending Provider on Admission: Charles Steele MD Consults: 11/21/24 18:18 Consult to Nephrology Routine Comment: Consulting Provider: Rosario Majano 11/22/24 04:55 Referral Wound Care Routine Comment: Attending Provider on DC: Charles Steele MD Discharging Provider: Charles Steele MD DS: Diagnosis Problem List Completed Was Problem List Reviewed/Reconciled?: Yes Hospital Course Hospital Course Hospital course: 54-year-old female with past medical history of hypertension, DM2, HFpEF (EF 55% on 08/2024), and ESRD (HD on Tuesdays, , and Saturdays) was admitted to hospital 11/21/2024 for community-acquired pneumonia and Citrobacter braakii bacteremia. Came intothe ED with chief complaint of bodyaches, chills, weakness, and not feeling well. Patient remained stable throughout hospital stayInitially came in febrile (103.3) and hypertensive. Initial labs were relevant for low hemoglobin (10.1), metabolic alkalosis (bicarb 32.9), lactic acidosis (2.8), hyperbilirubinemia (1.7), elevated lactate dehydrogenase (289), elevated procalcitonin (2.71), and elevated BNP (2245). Initial chest x-ray was remarkable for possible pulmonary edema versus pneumonia of right base. And patient's blood cultures did grow GNR initially and would later specified as Citrobacter braakii which was sensitive to doxycycline. Told the hospital stay patient not spiking WBCs or fevers. She did have diarrhea which got better with loperamide. At the time of discharge patient was stable enough to be discharged home. Discharge plan: Please follow-up with primary care physician within 1 week upon discharge You have been started on doxycycline 100 mg twice daily for 6 more days and start today in the evening. You have also been started on loperamide 2 mg every 6 hours as needed for diarrhea We have also sent ondansetron 4 mg every 6 hours as needed for nausea Please continue taking all other home medications as prescribed. Please come back to the ER if symptoms persist or worsen. Problem list: #Community-acquired pneumonia # Citrobacter braakii bacteremia #ESRD (HD on //SAT) #Lactic acidosis #Metabolic alkalosis #Chronic decubitus ulcers #Normocytic normochromic anemia #Diarrhea #Hx of DM2 #Hx of HFpEF (EF 55% on 08/2024) #Hx of hypertension Case disclosed with Attending Dr. Ivette Ro PGY1 Disclaimer: Even though this this note was dictated by speech recognition and even though it was carefully revised there may still be minor errors in regulatory affairs analyst due to voice recognition software. Status at Discharge Overall status at discharge: patient is progressing back to baseline Time Spent with Patient Time attestation: Total time spent providing and/or coordinating discharge services:>30 min Time spent: Less than 30 minutes Exam Vital Signs Temp Pulse Resp BP Pulse Ox O2 Del Method 96.9 F 80 18 152/79 H 98 Room Air 11/24/24 12:00 11/24/24 12:00 11/24/24 12:11/24/24 12:00 11/24/24 12:00 11/24/24 07:58 Narrative Exam General: A/O x3, no acute distress, appears older than given age Eyes: PERRL, EOMI. Anicteric, vision grossly intact. Ears: No ear pain, no ear discharge, Hearing grossly intact. Nose: No nasal discharge. Mouth/Throat: Dry mucous membranes, no redness, no lesions. Neck: Neck supple, non-tender, no cervical lymphadenopathy. Lungs: Clear YNES to auscultation and percussion, No accessory muscle use. Cardio: Normal S1/S2, regular rhythm, no murmurs, no JVD Abdomen: Soft, non-tender, no palpable masses, peristalsis present, no guarding or rebound. Extremities: Symmetrical, no significant deformities, 1+ peripheral edema , non-tender, peripheral pulses presents, 1 cm circular wound to medial aspect of wound right lower extremity without any drainage and 1.5 cm circular wound on posterior aspect of the left heel. A 4 x 4 cm circular wound with clear borders and good granulation at borders at the lateral aspect of the right hip. Skin: No rashes, no lesions, warm to touch, ulcers covered with clean dressing Neuro: No focal neurological deficits. Motor and sensory intact Discharge Plan Plan Patient Disposition: HOME (Self Care) Care Plan Goals: Please follow-up with primary care physician within 1 week upon discharge You have been started on doxycycline 100 mg twice daily for 6 more days and start today in the evening. You have also been started on loperamide 2 mg every 6 hours as needed for diarrhea We have also sent ondansetron 4 mg every 6 hours as needed for nausea Please continue taking all other home medications as prescribed. Please come back to the ER if symptoms persist or worsen. Prescriptions/Referrals Prescriptions/Med Rec: New doxycycline hyclate 100 mg capsule 100 mg PO BID Qty: 13 0RF ondansetron 4 mg tablet,disintegrating 4 mg PO Q8H PRN (Reason: nausea and vomiting) Qty: 14 0RF loperamide [Anti-Diarrheal (loperamide)] 2 mg capsule 2 mg PO Q6H PRN (Reason: loose stool) Qty: 14 0RF Discontinued doxycycline hyclate 100 mg capsule 100 mg PO BID Qty: 14 0RF Referrals: No Primary/Family,Physician [Primary Care Provider] - Patient/Caregiver Discharge Instructions Other Discharge Activity Instructions:: Please follow-up with primary care physician within 1 week upon discharge You have been started on doxycycline 100 mg twice daily for 6 more days and start today in the evening. You have also been started on loperamide 2 mg every 6 hours as needed for diarrhea We have also sent ondansetron 4 mg every 6 hours as needed for nausea Please continue taking all other home medications as prescribed. Please come back to the ER if symptoms persist or worsen. Education Materials: Preventing Pneumonia, Treating Pneumonia, Preventing Common Respiratory ... Print Language: Salvadorean Stand Alone Forms: Samantha Award Info., Patient Portal Info Letter Discharge Order Discharge Orders: Discharge (Routine); Ordered 11/24/24 Ordered By: Ariel Ro Quality Discharge Quality Measures VTE prophylaxis Attestestation Attestation I attest that I was physically present for the evaluation, physical examination, lab and imaging review of the patient with the residents. I discussed the case with the residents and agree with the findings and plans of care as documented above. Charles Steele MD
[2024-11-24] MEDS: ONDANSETRON INJ 2 MG/ML INJ 2 ML 4 MG IV (12:15)
[2024-11-24] MEDS: cefTRIAXone/D5w 2gm 2 GM/50 ML BAG IV (12:15)
[2024-11-24] MEDS: ENOXAPARIN SOD INJ 40 MG/0.4 ML SYRINGE SC (12:16)
[2024-11-24] MEDS: DOXYCYCLINE 100 MG TABLET PO (12:16)
--- NOTE | 2024-11-24 14:41 | ESCONSULT_ITS ---
RE: CLAUDE GU : 1970 DATE OF CONSULTATION: 11/23/2024 REASON FOR CONSULT: ESRD management. REFERRING PHYSICIAN: Dr. Maksim Ro. This patient is a 54-year-old woman with past medical history significant for type 2 diabetes, hypertension, ESRD, on dialysis since 2022, dialyzing every Saturday, , and Saturday, who presented to emergency room on 11/21/2024 with generalized weakness and right leg edema. The patient's last dialysis was . The patient has a history of noncompliance with dialysis treatment and sometimes cut off her treatments as per chart. The patient was febrile when she presented to emergency room on 11/21. She does not answer any questions and usually closes her eyes if I ask more questions. PAST MEDICAL HISTORY: As previously mentioned, diabetes, hypertension, weakness. CURRENT MEDICATIONS: 1. Acetaminophen. 2. Rocephin. 3. Doxycycline. 4. Hydralazine. 5. Lispro sliding scale. 6. Loperamide. 7. Zofran. 8. Scopolamine. PHYSICAL EXAMINATION: GENERAL: She is asleep, but arousable. VITAL SIGNS: Blood pressure of 165/85, heart rate of 77. HEENT: Anicteric sclerae. Normocephalic. NECK: Supple. No JVD. CHEST AND LUNGS: Normal expansion. Clear breath sounds. CARDIAC: Without murmur. ABDOMEN: Soft, nontender. EXTREMITIES: No edema. LABORATORY DATA: Hemoglobin 9.1, WBC 8000, platelet count 127,000. Sodium 135, potassium 4.1, chloride 95, CO2 of 27.7, BUN 39, creatinine 5.4, glucose 103. ASSESSMENT: 1. End-stage renal disease. 2. Weakness. 3. Possible sepsis. 4. Anemia of chronic kidney disease. PLAN: I agree with starting her on IV antibiotics. The patient will be dialyzed on her scheduled days, i.e., Saturday, and Saturday. Next dialysis will be tomorrow. Continue her antihypertensives. DT: 22:33:39 TT: 23:02:00 Ref: [id number] - TID: [id number] [facility]
[2024-11-24 15:55] LABS: Hepatitis A Antibody IgM Non Reactive (Non React); Hepatitis B Core Antibody IgM Non Reactive (Non React); Hepatitis B Surface Ab NonReact(Not Immune) (Immune); Hepatitis B Surface Antigen Non Reactive (Non React); Hepatitis C Antibody Non Reactive (Non React)
== END 2024-11-24 12:46 | disposition home or self-care (01) | DRG 139 ==
LOC: SERX 15:24 → SERHOLD 18:52 → S3NX 22:43
PROVIDERS: Internal Medicine; Nurse Practitioner Family; Admitting Provider Student in an Organized Health Care Education/Training Program; Emergency Provider Emergency Medicine; Visit Provider Student in an Organized Health Care Education/Training Program
DX: J18.9 Pneumonia, unspecified organism (principal); E11.22 Type 2 diabetes mellitus with diabetic chronic kidney disease; N18.6 End stage renal disease; I13.2 Hypertensive heart and chronic kidney disease with heart failure and with stage 5 chronic kidney disease, or end stage renal disease; I50.32 Chronic diastolic (congestive) heart failure; L89.213 Pressure ulcer of right hip, stage 3; L89.629 Pressure ulcer of left heel, unspecified stage; E87.4 Mixed disorder of acid-base balance; D63.1 Anemia in chronic kidney disease; I83.009 Varicose veins of unspecified lower extremity with ulcer of unspecified site; I44.7 Left bundle-branch block, unspecified; Z87.442 Personal history of urinary calculi; K74.60 Unspecified cirrhosis of liver; Z99.2 Dependence on renal dialysis
CPT/HCPCS: 36415; 71045; 80053; 80074; 81001; 83605; 83615; 83690; 83735; 83880; 84100; 84145; 84443; 84484; 85025; 85610; 85730; 86706; 87040; 87077; 87081; 87086; 87186; 87205; 87400; 87634; 87811; 93005; 93225; 96361; 96365; 96367; 99285; J0456; J0696; J1650; J1815; J2405; J7040; J7050; Q4081; A9270

== ENCOUNTER 2025-03-16 00:38 | Inpatient (IN) | payer MEDICAID, SELFPAY ==
[2025-03-16] VITALS (30 sets, daily range): BP systolic 99–160; BP diastolic 37–108; PULSE 55–120; RESP 16–22; TEMP 36.6–39.1; O2SAT 95–100; BMI 24.7
--- NOTE | 2025-03-16 01:12 | XR_ITS ---
Examination: Foot, left, 3 views Technique: AP, oblique, lateral views foot, 3 views Date and time of exam: March 16, 2025, 0134 hrs. Indications: Redness swelling and pain involving the foot this week Findings: Suspicious for early cortical bone destruction along plantar surface of calcaneus Returned the soft tissue consistent with infection with gas-forming organisms No fracture Impression: Early osteomyelitis plantar surface of the calcaneus, recommend MRI foot without contrast follow-up
--- NOTE | 2025-03-16 01:13 | PD.EDSKIN ---
ED Skin Abcess FB-RME/HPI General Chief complaint: General Adult/Misc Complain Stated complaint: CHRONIC LEG WOUNDS GETTNG WORSE Time Seen by Provider: 03/16/25 01:12 Arrival date/time: 03/16/25 00:38 55F with history of HTN, DM, CHF, and ESRD presents to ED with worsening chronic BLE wounds (L>R) for the past few days. Patient has not been to the Wound Center because she needs a new referral. Limitations: no limitations Related Data Previous Rx's ?Medication ?Instructions ?Recorded doxycycline hyclate 100 mg capsule 100 mg PO BID #13 caps 11/24/24 loperamide 2 mg capsule 2 mg PO Q6H PRN loose stool #14 11/24/24 (Anti-Diarrheal (loperamide)) caps ondansetron 4 mg disintegrating 4 mg PO Q8H PRN nausea and 11/24/24 tablet vomiting #14 tabs Allergies Allergy/AdvReac Type Severity Reaction Status Date / Time No Known Allergies Allergy Verified 03/16/25 00:43 Review of Systems Review of Systems Systems Reviewed: All systems reviewed, normal except as documented Constitutional Constitutional: Reports system reviewed and no additional complaints, except as documented and Denies fever(s) Integumentary/Breasts Skin/Breast: Reports as per HPI, Reports skin pain and Reports skin ulcer Past Medical History Past Medical History NEUROLOGIC: Negative Neurological Disorders or Seizures CARDIAC: Positive Cardiac Disorders, Hypercholesterolemia, Edema and Hypertension; Negative Congestive Heart Failure RESPIRATORY: Negative Chronic Obstructive Pulmonary Disease (COPD) or Asthma GASTROINTESTINAL: Negative Gastrointestinal Disorders or Hepatitis GENITOURINARY: Positive Genitourinary Disorders, Renal Disease, Kidney Stones and Dialysis (MWF) REPRODUCTIVE: Positive Previous Pregnancies MUSCULOSKELETAL: Positive Musculoskeletal Disorders and Arthritis ENT: Positive Cataracts ENDOCRINE: Positive Endocrine Disorders and Diabetes Mellitus Type 2; Negative Diabetes Mellitus Type 1 HEMATOLOGIC: Positive Blood Disorders and Anemia; Negative Sickle Cell Disease OTHER HISTORY: Positive Hospitalization and Chicken Pox; Negative Autoimmune Disease, Shingles, Blood Transfusions, Blood Transfusion Reaction, Anesthesia Reactions or Cancer Family History FAMILY HISTORY: Positive Family Cardiac Disorders; Negative Family Psychiatric Problems, Family Respiratory Disorders, Family Gastrointestinal Problems, Family Cancer, Family Surgery or Family Anesthesia Reaction Surgical History SURGICAL: Positive Tubal Ligation Social History SMOKING STATUS: Never smoker SECOND HAND EXPOSURE: No SUBSTANCE USE: does not use ED Exam General Limitations: Present no limitations General appearance: Present alert and in no apparent distress Chest Chest inspection: Present normal inspection and symmetric chest wall rise Extremities Exam Extremities exam: Present full ROM Expanded Lower Extremity Exam Lower leg exam: Present swelling Ankle exam: Present swelling Foot/toe exam: Present swelling (L heel draining wound) and erythema Course Quality Measures none Orders Category Date Time Status Admit to Inpatient Status Routine Admission 03/16/25 05:43 Active Patient Condition Routine Admission 03/16/25 05:43 Ordered COVID-19 Screening Questionnaire NOW Care 03/16/25 03:05 Active Decision to Admit X1 Care 03/16/25 03:05 Completed Insert IV NOW Care 03/16/25 03:19 Active Notify provider NEEDED Care 03/16/25 05:43 Active Obtain weight NOW Care 03/16/25 05:43 Active Wound Care NOW Care 03/16/25 05:40 Active Consult to Nephrology Routine Cons 03/16/25 05:41 Ordered Diet Carbohydrate Consistent Diet 03/16/25 Breakfast Active XR foot comp LT min 3V Stat Exams 03/16/25 01:12 Taken Blood Culture (Lab) Stat Lab 03/16/25 01:28 Received CBC AM DRAW Lab 03/17/25 05:00 Ordered CBC AM DRAW Lab 03/18/25 05:00 Ordered CBC AM DRAW Lab 03/19/25 05:00 Ordered CBC AM DRAW Lab 03/20/25 05:00 Ordered CBC Stat Lab 03/16/25 01:23 Completed CMP [Comprehensive Metabolic Panel] AM DRAW Lab 03/17/25 05:00 Ordered CMP [Comprehensive Metabolic Panel] AM DRAW Lab 03/18/25 05:00 Ordered CMP [Comprehensive Metabolic Panel] AM DRAW Lab 03/19/25 05:00 Ordered CMP [Comprehensive Metabolic Panel] AM DRAW Lab 03/20/25 05:00 Ordered CMP [Comprehensive Metabolic Panel] Stat Lab 03/16/25 01:23 Completed CRP [C-Reactive Protein] Stat Lab 03/16/25 01:23 Completed ESR [Sed Rate (ESR)] Stat Lab 03/16/25 01:23 Completed Lactate (Lactic Acid) Q4H Lab 03/16/25 07:45 Ordered Lactate (Lactic Acid) Q4H Lab 03/16/25 11:45 Ordered Lactate (Lactic Acid) Q4H Lab 03/16/25 15:45 Ordered Lactate (Lactic Acid) Q4H Lab 03/16/25 19:45 Ordered Lactate (Lactic Acid) Stat Lab 03/16/25 04:48 Results Magnesium AM DRAW Lab 03/17/25 05:00 Ordered Magnesium AM DRAW Lab 03/18/25 05:00 Ordered Magnesium AM DRAW Lab 03/19/25 05:00 Ordered Magnesium AM DRAW Lab 03/20/25 05:00 Ordered Phosphorous AM DRAW Lab 03/17/25 05:00 Ordered Phosphorous AM DRAW Lab 03/18/25 05:00 Ordered Phosphorous AM DRAW Lab 03/19/25 05:00 Ordered Phosphorous AM DRAW Lab 03/20/25 05:00 Ordered Procalcitonin Stat Lab 03/16/25 04:48 Completed Acetaminophen Tab [Tylenol Tab] Med 03/16/25 05:43 Ordered 650 mg PO Q6H PRN Acetaminophen Tab [Tylenol Tab] Med 03/16/25 05:43 Ordered 650 mg PO Q6H PRN Doxycycline Inj [Vibramycin Inj] 100 mg Med 03/16/25 09:00 Active Sodium Chloride 0.9% (Pop) [NS 0.9% mini bag] 100 ml IV BID HYDROcodone/APAP 10/325 [Chidester 10/325] Med 03/16/25 05:43 Ordered 1 tab PO Q4HR PRN Heparin Inj Med 03/16/25 09:00 Ordered 5,000 unit SC BID Ondansetron Inj [Zofran Inj] Med 03/16/25 05:43 Ordered 4 mg IVP Q6H PRN Pantoprazole Inj [Protonix Inj] Med 03/16/25 09:00 Ordered 40 mg IVP QDAY Ringers Lactated 500 ml [Lactated Ringers] 500 ml Med 03/16/25 05:43 Ordered IV 999 mls/hr cefTRIAXone/D5w 1gm IV premix [Rocephin/D5w 1gm IV Med 03/16/25 09:00 Active premix] 1 g in 50 ml IV QDAY oxyCODONE/APAP 5/325 [Percocet 5/325] Med 03/16/25 05:43 Ordered 1 tab PO Q6H PRN Code Status Routine Oth 03/16/25 05:43 Ordered Vital Signs Vital signs: Vital Signs Temperature 98.4 F 03/16/25 00:53 Pulse Rate 90 03/16/25 00:53 Respiratory Rate 20 03/16/25 00:53 Blood Pressure 158/71 H 03/16/25 00:53 Pulse Oximetry (%) 97 03/16/25 00:53 Oxygen Delivery Method Room Air 03/16/25 00:53 O2 at 97% on RA and WNLs Skin / Abscess / Foreign Body MDM Narrative MDM Narrative:: 55F with history of HTN, DM, CHF, and ESRD presents to ED with worsening chronic BLE wounds (L>R) for the past few days. Patient has not been to the Wound Center because she needs a new referral. Physical exam reveals BLE swelling. No open wound on RLE. Draining wound on heel of LLE with foul smell. There is also some redness and swelling. Patient is afebrile, calm, and alert. Telerad XR read reveals SSTI infection with possible necrosis. Moderate leukocytosis. CMP unremarkable for dialysis patient and mildly elevated anion-gap. CRP/ESR elevated. Spoke to IM Resident who reports to Dr. Carey who will admit patient. Patient data External records reviewed:: [facility] previous records Clinical information provided by:: patient Social determinants that could affect healthcare access:: none Patient has the following chronic illnesses:: HTN, DM, CHF, and ESRD How is presenting disease/condition affected by chronic disease/condition?: exacerbated by Evaluation data The following diagnostics were reviewed and interpreted by me:: lab results and radiology exam(s) Lab and/or radiology exams considered but not ordered:: ordered Interpretation Summary: above Medications / Prescriptions Medications or Prescriptions considered but not ordered:: ordered Medication administrations:: Medication Administration History Acetaminophen (Acetaminophen 325 Mg Tablet) 650 mg PO Q6H PRN PRN Reason: PAIN SCALE 1-3 (mild Stop: 04/15/25 05:42 Acetaminophen (Acetaminophen 325 Mg Tablet) 650 mg PO Q6H PRN PRN Reason: Fever >100.4 Stop: 04/15/25 05:42 Hydrocodone Bitart/Acetaminophen (Hydrocodone/Apap 10/325 Tab) 1 tab PO Q4HR PRN PRN Reason: PAIN SCALE 7-10 (Severe Stop: 03/21/25 05:42 Heparin Sodium (Porcine) (Heparin Sod Inj 5000 Unit/Ml Vial) 5,000 unit SC BID LIU Stop: 03/30/25 08:59 Ceftriaxone Sodium/Dextrose (Rocephin/D5w 1gm Iv Premix) 1 g in 50 mls @ 100 mls/hr IV QDAY [facility] Stop: 03/23/25 08:59 Doxycycline Hyclate 100 mg/ (Sodium Chloride) 100 mls @ 100 mls/hr IV BID [facility] Stop: 03/23/25 08:59 Lactated Ringer's (Lactated Ringers) 500 mls @ 999 mls/hr IV .Q31M ONE Stop: 03/16/25 06:13 Ondansetron HCl (Ondansetron Inj 2 Mg/Ml Inj 2 Ml) 4 mg IVP Q6H PRN; Protocol PRN Reason: NAUSEA OR VOMITING Stop: 04/15/25 05:42 Oxycodone/Acetaminophen (Oxycodone/Apap 5/325 Tablet) 1 tab PO Q6H PRN PRN Reason: PAIN SCALE 4-6 (Moderate Stop: 03/21/25 05:42 Pantoprazole Sodium (Pantoprazole Inj 40 Mg Vial) 40 mg IVP QDAY [facility] Stop: 04/15/25 08:59 above Consultations Consultation(s) initiated? (list below): Yes Diagnosis Skin/Abscess Differential Diagnosis: abscess of skin or subcutaneous tissue, viral exanthem, dermatophytosis, urticaria, herpes zoster, allergic reaction to drug, cellulitis, eczema, insect bites, impetigo, contact dermatitis and other (osteomyelitis, Diabetic foot ulcer) Most likely diagnosis given after review of the tests above:: Diabetic foot ulcer Admission Indicated Admission indicated?: indicated Admission Request Was there a request for admission?: Yes Admission Attestation Admission request attestation: Discussed case with [Dr. Carey] from Hospitalist service regarding admission. Discussed patients ED course, exam findings, labs, and radiology results. The Hospitalist [agrees] to accept the patient for admission. Disposition Plan Disposition Plan: Admit Discharge Plan Plan Patient Disposition: Admit Acute Care w/in Hospital Prescriptions/Referrals Prescriptions/Med Rec: No Action doxycycline hyclate 100 mg capsule 100 mg PO BID Qty: 13 0RF ondansetron 4 mg tablet,disintegrating 4 mg PO Q8H PRN (Reason: nausea and vomiting) Qty: 14 0RF loperamide [Anti-Diarrheal (loperamide)] 2 mg capsule 2 mg PO Q6H PRN (Reason: loose stool) Qty: 14 0RF Referrals: Miguel Yoder MD [Primary Care Provider, Family Practice] - In 1 week Problem List Clinical Impression: Diabetic foot ulcer Patient/Caregiver Discharge Instructions Print Language: Slovenian Stand Alone Forms: Samantha Award Info., Patient Portal Info Letter
[2025-03-16 01:45] LABS: Basophils # (Auto) 0.1 Thou/mm3 (0.0-0.2); Basophils % (Auto) 0 % (0-2.5); Eosinophils # (Auto) 0.0 Thou/mm3 (0.0-0.5); Eosinophils % (Auto) 0 % (0-10); Hematocrit 33.5 % (36.0-46.0); Hemoglobin 11.1 g/dL (12.0-16.0); Immature Granulocytes Auto 0.26 Thou/mm3 (0.00-0.00); Lymphocytes # (Auto) 1.6 Thou/mm3 (1.0-4.8); Lymphocytes % (Auto) 10 % (10-50); Mean Corpuscular HGB Conc 33.1 g/dl (31.0-37.0); Mean Corpuscular Hemoglobin 29.8 pg (25.0-35.0); Mean Corpuscular Volume 90 fL (80-100); Monocytes # (Auto) 1.2 Thou/mm3 (0.0-0.8); Monocytes % (Auto) 7 % (0-12); Neutrophils # (Auto) 13.4 Thou/mm3 (1.8-7.7); Neutrophils % (Auto) 81 % (37-80); Nucleated Red Blood Cell # 0.00 Thou/mm3 (0.00-0.00); Nucleated Red Blood Cell % 0 /100 WBC (0); Platelet Count 244 Thou/mm3 (140-440); RDW Standard Deviation 53.5 fL (36.4-46.3); Red Blood Count 3.72 Miln/mm3 (4.00-5.20); White Blood Count 16.6 Thou/mm3 (3.6-11.0)
[2025-03-16 01:56] LABS: Sed Rate (ESR) 124 mm/hr (0-30)
[2025-03-16 02:02] LABS: Alanine Aminotransferase 13 U/L (10-49); Albumin, Serum 3.3 gm/dL (3.5-5.0); Albumin/Globulin Ratio 1.0 (1.2-2.2); Alkaline Phosphatase 98 U/L (46-116); Anion Gap 18 (7-16); Aspartate Amino Transferase 21 U/L (0-34); BUN/Creatinine Ratio 8 Ratio (12-20); Bilirubin,Total 1.2 mg/dL (0.3-1.2); Blood Urea Nitrogen 70 mg/dL (9-23); C-Reactive Protein 15.6 mg/dL (0.0-0.9); Calcium 8.2 mg/dL (8.3-10.6); Calcium (Corrected) 8.8 mg/dL (8.5-10.1); Carbon Dioxide 23.1 mMol/L (20.0-31.0); Chloride 92 mMol/L (98-107); Creatinine (Component) 8.8 mg/dL (0.6-1.3); Estimated Creatinine Clearance 6.6 mL/min (>60); Globulin 3.3 gm/dL (2.3-3.5); Glucose 152 mg/dL (74-106); Osmolality,Calculated 289 (275-295); Potassium 3.5 mMol/L (3.4-5.1); Sodium 133 mMol/L (136-145); Total Protein 6.6 gm/dL (5.7-8.2); eGFR 5 See Note
--- NOTE | 2025-03-16 03:10 | PRELIM_ITS ---
Radiographs of the left foot (03 views). March 16, 2025 0134 hours Clinical History: R/o osteo Findings: There is no evidence of fracture or dislocation. The visualized bones are of normal configuration and density. The visualized joints are normal in configuration and alignment. There is soft tissue swelling with mottled lucencies in the subcutaneous tissues of heel of left foot laterally. The underlying osseous structures are unremarkable. Vascular calcification is noted. Impression: Findings suggestive of cellulitis with subcutaneous emphysema, raising suspicion of possible gram negative/necrotising infection involving heel of left foot laterally. No evidence of osteolysis or periosteal reaction. Recommend clinical correlation and follow-up. Discussion Details: Results verbally communicated to : Dr. Palacios at 03:00 AM 03/16/2025 Report Electronically Signed By: Joseph Young 03/16/2025 3:10:12 AM [EST]
[2025-03-16 04:50] LABS: Lactate (Lactic Acid) 3.0 mMol/L (0.4-2.0)
[2025-03-16 05:18] LABS: Procalcitonin 13.76 ng/ml (0.0-0.49)
[2025-03-16] MEDS: RINGERS LACTATED 500 ML 500 ML 999 ML IV (05:53)
--- NOTE | 2025-03-16 05:57 | ESHP_ITS ---
Documentation for date of: 03/16/25 HPI History of Present Illness History of present illness: This is a 55-year-old female with PMHx of HTN, IDDM type II, HFpEF EF 55% on 08/2024, ESRD on HD TTS, presenting with right heel pain. At the time of encounter, patient was sleeping, and history was thus limited. Son was at bedside and assisted with H&P. Evidently, symptoms started about 3 days ago when she noticed increasingly worsening pain of the right heel. Denied for injury or trauma, or stepping on sharp object. Also denied fever, chills, chest pain, shortness of breath, cough, abdominal pain, or urinary symptoms. Her last hemodialysis was on Saturday which she completed. Past Medical History: * As above. Past Surgical History: * Surgery for cataract and kidney stones. Medications: * Pending med rec. Allergies: * No known allergies. Family History: * Not relevant. Social History: * Denies alcohol, tobacco, or drug use. ED Course: * Afebrile, HR 90, BP 158/71, satting upper 90s on room air. * Negative COVID, influenza A/B. * WBC 16.6, Hgb 11.1 (baseline 9.6), PLT 244. * Normal coag panel. * CHEM panel significant for sodium 133 around baseline, lactic acid 3.0, CRP 15.6, PRO-FRANCISCO 13.76, ESR 124. * Renal function around baseline with CR 8.8, GFR 5, BUN 70, potassium of 3.5. * She has anion gap of 18, likely CKD/uremia/lactic acidosis. * UA negative for UTI. * Preliminary right foot x-ray showed skin and soft tissue infection with possible necrosis (pending final read) Reason for admission: Lactic acidosis and leukocytosis in settings of soft tissue infection and ESRD, warranting further investigation for bacteremia and correction of lactic acidosis. Exam Vital Signs Temp Pulse Resp BP Pulse Ox O2 Del Method 98.7 F 88 19 144/81 H 95 Room Air 03/16/25 05:47 03/16/25 05:47 03/16/25 05:47 03/16/25 05:47 03/16/25 05:47 03/16/25 05:47 Narrative Exam GENERAL * Normal appearing female, sleeping at the time of encounter. HEENT * NCAT.?CHU. Oral mucosa is moist. Patent Nares NECK * Supple, nontender, no JVD. CHEST * RRR, no m/g/r * CTAB, no w/r/r, symmetrical expansion. ABDOMEN * Soft, flat, nontender. No guarding/rebound tenderness/masses. * Bowel sounds presents EXTREMITIES * Bilateral lower extremity edema is present. * Large purulent, erythematous, tender, foul-smelling ulcer of right heel. SKIN * Warm and dry, no jaundice/rashes. NEUROMUSCULAR * No lumbar or midline, no CVA, no paraspinal muscle spasm or tenderness. * Moves all 4 extremities well, with full ROM and good CSM. * MONTE x4, CN II-XII grossly intact. * No focal neurologic deficits. PSYCHIATRY * Normal mood and affect, cooperative, no SI or HI or hallucinations. Results: Labs 03/20/25 04:20 03/20/25 04:20 Labs: Short CBC 03/16/25 Range/Units 01:23 WBC 16.6 H (3.6-11.0) Thou/mm3 Hgb 11.1 L (12.0-16.0) g/dL Hct 33.5 L (36.0-46.0) % Plt Count 244 (140-440) Thou/mm3 BMP 03/16/25 01:23 Sodium 133 L Potassium 3.5 Chloride 92 L Carbon Dioxide 23.1 BUN 70 H Creatinine 8.8 H* Glucose 152 H Calcium 8.2 L Liver Function 03/16/25 Range/Units 01:23 Total Bilirubin 1.2 (0.3-1.2) mg/dL AST 21 (0-34) U/L ALT 13 (10-49) U/L Alkaline Phosphatase 98 (46-116) U/L Albumin 3.3 L (3.5-5.0) gm/dL Quality Measures Quality Measures none Medications Home Medications and Allergies Allergies Allergy/AdvReac Type Severity Reaction Status Date / Time No Known Allergies Allergy Verified 03/16/25 00:43 Visit Medications Acetaminophen (Acetaminophen 325 Mg Tablet) 650 mg PO Q6H PRN PRN Reason: PAIN SCALE 1-3 (mild Stop: 04/15/25 05:42 Acetaminophen (Acetaminophen 325 Mg Tablet) 650 mg PO Q6H PRN PRN Reason: Fever >100.4 Stop: 04/15/25 05:42 Hydrocodone Bitart/Acetaminophen (Hydrocodone/Apap 10/325 Tab) 1 tab PO Q4HR PRN PRN Reason: PAIN SCALE 7-10 (Severe Stop: 03/21/25 05:42 Heparin Sodium (Porcine) (Heparin Sod Inj 5000 Unit/Ml Vial) 5,000 unit SC BID [facility] Stop: 03/30/25 08:59 Ceftriaxone Sodium/Dextrose (Rocephin/D5w 1gm Iv Premix) 1 g in 50 mls @ 100 mls/hr IV QDAY [facility] Stop: 03/23/25 08:59 Doxycycline Hyclate 100 mg/ (Sodium Chloride) 100 mls @ 100 mls/hr IV BID [facility] Stop: 03/23/25 08:59 Lactated Ringer's (Lactated Ringers) 500 mls @ 999 mls/hr IV .Q31M ONE Stop: 03/16/25 06:13 Last Admin: 03/16/25 05:53 Dose: 999 mls/hr Ondansetron HCl (Ondansetron Inj 2 Mg/Ml Inj 2 Ml) 4 mg IVP Q6H PRN; Protocol PRN Reason: NAUSEA OR VOMITING Stop: 04/15/25 05:42 Oxycodone/Acetaminophen (Oxycodone/Apap 5/325 Tablet) 1 tab PO Q6H PRN PRN Reason: PAIN SCALE 4-6 (Moderate Stop: 03/21/25 05:42 Pantoprazole Sodium (Pantoprazole Inj 40 Mg Vial) 40 mg IVP QDAY [facility] Stop: 04/15/25 08:59 Assessment & Plan Plan This is a 55-year-old female with PMHx of HTN, IDDM type II, HFpEF EF 55% on 08/2024, ESRD on HD TTS, presenting with right heel pain. Sepsis 2/2 Osteomyelitis vs emphesematous cellulitis Osteomyelitis Emphesematous cellutlitis Lactic Acidosis Type A vs. B SSTI of Right heal Presenting with right heel pain, with findings of soft tissue infection of the right heel. She also had lactic acidosis of 3.0, likely combination type B from CKD and less likely type A since no sign sepsis at this point. We gave 500 cc NS bolus and will follow-up on serial lactic acid. He has longstanding diabetes, and requires IV ANTIBIOTICS, wound unlikely to heal with oral ANTIBIOTICS. Given CEFTRIAXONE x 1. General surgery consulted for concern of nec. fascitis, will evaluate patient. ? Continue ZOSYN and DOXYCYCLINE ? Trend lactic acid, give fluid as needed but gently. ? Wound care ? Follow-up on final foot x-ray read ? Hemodialysis inpatient ? General surgery consulted (Dr. Davey) ESRD on HD TTS Last hemodialysis on Saturday, renal panel appears at baseline. Unclear if primary supervisor laboratory is Dr. Yap or Dr Majano, patient answered yes to both. ? Dr. Yap consulted ? Continue inpatient hemodialysis IDDM A1c 7.1 from 08/2024. GLUCOSE 152 on admission. ? INSULIN sliding scale ? Accu-Cheks ? Pending A1c HFrEF EF 55% 08/2024 Per record review. She has bilateral lower extremity edema likely combination HFpEF and ESRD. However, we gave 500 cc IVF for above-mentioned lactic acidosis. No signs or symptoms of CHF exacerbation. ? Avoid too much fluid ? Continue with inpatient hemodialysis Health maintenance Diet: NPO GI prophylaxis: PROTONIX DVT prophylaxis: SCD, resume HEPARIN if no surgery Antibiotics: ZOSYN, DOXYCYCLINE CODE STATUS: FULL-CODE Disposition: Admitted for right foot diabetic ulcer. Case was discussed with attending physician, Dr. Carey. Al Rivera, DO PGY II This document was transcribed using voice recognition technology. Minor inaccuracies may be present. Attending Provider Attestation/Addendum After examination of the patient and review of the clinical data I feel that this patient needs admission to the hospital for further treatment/evaluation. Plan of care discussed with patient and is in agreement. I Brigid Carey MD, attest that I was physically present for dumont portions of evaluation, and examined patient, labs and imagings and plan of care were discussed with IM residents team, and I agree with the findings and plans documented above.
--- NOTE | 2025-03-16 06:06 | PC.NURSE ---
Per Dr. Nicole coe to give abt now-pharmacy notified to change time
[2025-03-16] MEDS: DOXYCYCLINE INJ 100 MG in SODIUM CHLORIDE 0.9% (POP) 100 ML IV (06:22)
--- NOTE | 2025-03-16 06:36 | PC.LAC ---
per . do not infuse rocephin new orders pending
[2025-03-16] MEDS: CLINDAMYCIN/NS 600 MG IVPB 600 MG/50 ML BAG 100 MG IV (07:15)
--- NOTE | 2025-03-16 07:24 | PC.NURSE ---
@[phone] Report received from ER nurse Shannen.
--- NOTE | 2025-03-16 07:26 | PC.NURSE ---
REPORT CALLED TO MARLO DE JESUS. NO FURTHER QUESTIONS.
--- NOTE | 2025-03-16 07:47 | XR_ITS ---
Examination: CT left lower leg, without contrast. 2-D sagittal reconstructions. 2-D coronal reconstructions. 3-D reconstructions. Date and time of exam:March 16, 2025 0902 hours INDICATIONS: Left lower leg pain and swelling today CTDI: vol (mGy):12.5 DLP: (mGycm):1247 Technique: Multiple 1.25 mm axial sections of the left lower leg without intravenous contrast have been obtained. 2-D sagittal and coronal reconstructions have been obtained. 3-D reconstructions have been obtained. Low dose protocols were performed. One or more of the following dose reduction techniques were used; automated exposure control, adjustment of the mA and/or KV according to patient size, use of iterative reconstruction technique. Findings: Severe osteopenia Left hip shaft of the femur intact Edema in the subcutaneous soft tissue surrounding the entire lower leg No patellar dislocation No cortical bone destruction involving the tibia or fibula Soft tissue infection with air density surrounding the posterior calcaneus Cortical bone destruction involving the lateral inferior surface of the calcaneus Metatarsals and digits intact IMPRESSION: Osteomyelitis calcaneus Cellulitis pattern. Soft tissue infection adjacent to the posterior calcaneus No soft tissue fluid-filled abscess
[2025-03-16 07:49] LABS: Reflex Lactate? Y
--- NOTE | 2025-03-16 08:00 | PC.NURSE ---
@0800 Patient to room via gurney, stable condition. No family at bedside.
[2025-03-16 08:14] LABS: Glucose Estimated Average 174 mg/dL (80-131); Hemoglobin A1C 7.7 % Hgb (4.8-6.0)
[2025-03-16] MEDS: PIPERACILLIN/TAZO 2.25GM INJ 2.25 GM in SODIUM CHLORIDE 0.9% (POP) 100 ML IV (08:45)
--- NOTE | 2025-03-16 08:56 | ESPR_ITS ---
<Statement entered by Yoel Dickson MD - 03/16/25 14:26> Overnight admission for 55-year-old female past medical history of HFpEF, ESRD on hemodialysis () presenting to the ED for lethargy. Patient's last dialysis session was on 03/13 and she will be scheduled for dialysis today 03/16 with nephrology consultation, patient's own manager graphic Dr. Yap. Patient also has a left heel wound which is oozing purulent discharge and measures roughly 2-3 cm. Imaging findings including x-ray and CT confirm osteomyelitis of the calcaneus; however, general surgery does not recommend surgery at this time. Infectious disease has been consulted for long-term IV antibiotics; moreover, we will follow-up on the recommendations. I have personally seen and examined the patient. I agree with the resident's assessment and plan as documented below. Yoel Dickson, DO PGY-2 Internal Medicine - GME Documentation for date of: 03/16/25 Subjective Subjective Interval history: Admitted overnight. Last dialysis session Saturday, scheduled for dialysis today. Consulted patient's manager graphic Dr. Yap. Patient was lethargic on exam, unable to obtain ROS. She has ulcer on left heel, oozing purulent discharge and malodorous. X-ray shows early osteomyelitis of the calcaneus, confirmed by CT. Consulted general surgeon Dr. Davey who does not recommend surgery at this time, conservative wound care for now but may consider BKA if worsens. IV Vanco and Zosyn started, consulted ID for further recommendations. Exam Vital Signs Temp Pulse Resp BP Pulse Ox O2 Del Method O2 Flow Rate 99.5 F 66 18 108/37 L 99 Nasal Cannula 1 03/16/25 07:07 03/16/25 08:48 03/16/25 08:42 03/16/25 08:48 03/16/25 08:42 03/16/25 07:07 03/16/25 08:42 Narrative Exam Physical Exam General: Awake and in no acute distress. Lethargic. Able to understand some questions, answering appropriately but infrequently. HEENT: Normocephalic, atraumatic, mucous membranes moist. Edematous eyelids. Heart: Regular rate and rhythm, normal S1 and S2, no murmurs. Lungs: Clear to auscultation with no wheezing or crackles. Abdomen: Soft, nondistended, nontender, positive bowel sounds. No guarding or rebound tenderness. Neurologic: Alert and oriented x3, no gross neurological deficit, and patient able to move all 4 extremities. Extremities: Left heel wound, 2-3 cm, purulent drainage and malodorous. Erythema and swelling of left leg up to mid thigh, tender on palpation. Multiple healed ulcerations on bilateral legs. 2+ pitting edema bilaterally. Skin: No rash or ecchymoses. Objective Labs 03/16/25 01:23 03/16/25 01:23 Labs: Laboratory Results - last 24 hr 03/16/25 03/16/25 01:23 04:48 WBC 16.6 H RBC 3.72 L Hgb 11.1 L Hct 33.5 L MCV 90 MCH 29.8 MCHC 33.1 RDW Std Deviation 53.5 H Plt Count 244 Neut % (Auto) 81 H Lymph % (Auto) 10 [place] % (Auto) 7 Eos % (Auto) 0 Baso % (Auto) 0 Neut # (Auto) 13.4 H Lymph # (Auto) 1.6 [place] # (Auto) 1.2 H Eos # (Auto) 0.0 Baso # (Auto) 0.1 Immature Gran # (Auto) 0.26 H Absolute Nucleated RBC 0.00 Immature Gran % 2 H Nucleated RBC % 0 ESR 124 H Sodium 133 L Potassium 3.5 Chloride 92 L Carbon Dioxide 23.1 Anion Gap 18 H BUN 70 H Creatinine 8.8 H* Estim Creat Clear Calc 6.6 L eGFR 5 L* BUN/Creatinine Ratio 8 L Glucose [address] Glu mg/dL 174 H Hemoglobin A1c 7.7 H Calculated Osmolality 289 Lactic Acid 3.0 H Calcium 8.2 L Corrected Calcium 8.8 Total Bilirubin 1.2 AST 21 ALT 13 Alkaline Phosphatase 98 C-Reactive Prot, Quant 15.6 H Total Protein 6.6 Albumin 3.3 L Globulin 3.3 Albumin/Globulin Ratio 1.0 L Procalcitonin 13.76 H Quality Measures Quality Measures none Assessment & Plan Assessment Current Active Medications: Generic Name Dose Route Start Last Admin Trade Name Freq PRN Reason Stop Dose Admin Acetaminophen 650 mg 03/16/25 05:43 Acetaminophen 325 Mg Tablet PO 04/15/25 05:42 Q6H PRN PAIN SCALE 1-3 (mild Acetaminophen 650 mg 03/16/25 05:43 Acetaminophen 325 Mg Tablet PO 04/15/25 05:42 Q6H PRN Fever >100.4 Hydrocodone Bitart/Acetaminophen 1 tab 03/16/25 05:43 Hydrocodone/Apap 10/325 Tab PO 03/21/25 05:42 Q4HR PRN PAIN SCALE 7-10 (Severe Dextrose 25 ml 03/16/25 07:31 Dextrose 50%-Water Inj 50 Ml Syringe IV 04/15/25 07:30 Q15MIN PRN BG 50-70 responsive npo pt Dextrose 50 ml 03/16/25 07:31 Dextrose 50%-Water Inj 50 Ml Syringe IV 04/15/25 07:30 Q15MIN PRN BG <50 OR BG <70 & pt unresponsive Glucagon 1 mg 03/16/25 07:31 Glucagon Inj 1 Mg Vial IM Q15MIN PRN BG <70, and no IV access Heparin Sodium (Porcine) 5,000 unit 03/16/25 09:00 Heparin Sod Inj 5000 Unit/Ml Vial SC 03/30/25 08:59 BID LIU Piperacillin Sod/Tazobactam 100 mls @ 200 mls/hr 03/16/25 07:00 03/16/25 08:45 Sod 2.25 gm/ Sodium Chloride IV 03/23/25 06:59 200 mls/hr Q12HR LIU Administration Albumin Human 25 gm in 100 mls @ 100 mls/min 03/16/25 07:48 Albuminar-25 Ivpb IV PRN PRN DIALYSIS Vancomycin/Sodium Chloride 200 mls @ 120 mls/hr 03/16/25 08:00 Vancomycin/Ns 1 Gm Ivpb IV 03/16/25 09:39 X1 ONE Insulin Human Lispro 0 unit 03/16/25 11:30 Insulin Lispro (Admelog) 1 Unit/0.01 Ml Unit SC 04/15/25 11:29 ACHS LIU Protocol Ondansetron HCl 4 mg 03/16/25 05:43 Ondansetron Inj 2 Mg/Ml Inj 2 Ml IVP 04/15/25 05:42 Q6H PRN NAUSEA OR VOMITING Protocol Oxycodone/Acetaminophen 1 tab 03/16/25 05:43 Oxycodone/Apap 5/325 Tablet PO 03/21/25 05:42 Q6H PRN PAIN SCALE 4-6 (Moderate Pantoprazole Sodium 40 mg 03/16/25 09:00 Pantoprazole Inj 40 Mg Vial IVP 04/15/25 08:59 QDAY LIU Pharmacy Consult 1 each 03/16/25 09:00 Vancomycin Pharmacy To Dose 1 Each Each IV 04/15/25 08:59 QDAY PRN CONSULT Plan Patient is a 55-year-old female with PMHx of HTN, IDDM type II, HFpEF EF 55%, ESRD on HD TTS, who presented on 03/15 for left heel pain, admitted for osteomyelitits. #Osteomyelitis of right heel #Lactic Acidosis Presenting with right heel pain, with findings of soft tissue infection of the right heel. Denies trauma. She also had lactic acidosis of 3.0, likely combination type B from CKD and less likely type A since no sign sepsis at this point. X-ray left foot shows early osteomyelitis plantar surface of the calcaneus CT left lower extremity shows osteomyelitis calcaneus, with soft tissue infection adjacent to posterior calcaneus. Cellulitis pattern. S/p 500 cc NS bolus and CEFTRIAXONE x 1. Plan: ? Start on Zosyn and vancomycin - Trend lactic acid ? Wound care ? Hemodialysis inpatient per schedule - Consulted surgeon Dr. Davey, appreciate recommendations: consider BKA if worsens, IV abx for now - Consulted ID Dr. Banuelos for antibiotic management #ESRD on HD TTS Last hemodialysis on Saturday, renal panel appears at baseline. Follows Dr. Yap outpatient. Received dialysis today. ? Dr. Yap consulted ? Continue inpatient hemodialysis per patient schedule #Hx of IDDM A1c 7.1 from 08/2024. GLUCOSE 152 on admission. A1c 7.7 on 03/16. ? INSULIN sliding scale ? Accu-Cheks #HFrEF EF 55% 08/2024 Per record review. She has bilateral lower extremity edema likely combination HFpEF and ESRD. Gave 500 cc IVF for above-mentioned lactic acidosis. No signs or symptoms of CHF exacerbation. ? Avoid too much fluid ? Hemodialysis above #Bilateral PAD of lower extremities, chronic On exam, lower extremities appeared edematous and warm to touch. Left leg more tender than right. Lower extremity duplex shows severe bilateral peripheral obstructive arterial disease, appears to be chronic, similar findings in 08/10/24. Plan: - Consider CTA abdominal aorta iliofemoral runoff post IV contrast - Consider antithrombotic therapy if becomes symptomatic - CTM Health Maintenance Disposition: management of left foot diabetic ulcer DVT prophylaxis: heparin GI prophylaxis: protonix Bowel: Senna Diet: Carb consistent CODE STATUS: FULL Patient plan of care was discussed with the resident, Dr. Dickson, and attending physician, Dr. Rizo. Delmis Lazcano, PGY-1 Attending Provider Attestation/Addendum I attest that I was physically present for the evaluation, physical examination, lab and imaging review of the patient with the residents. I discussed the case with the residents and agree with the findings and plans of care as documented above. Patient is a 55 years old female with past medical history of hypertension, diabetes mellitus, HFpEF, ESRD on hemodialysis who presented to the ED with complaint of right heel pain. She was admitted overnight for cellulitis of right heel. At bedside he is feeling well and denies any new complaints. Her pain has been well-controlled with analgesics. X-ray of the foot and CT of left foot shows osteomyelitis and soft tissue infection. General surgery was consulted, who unroofed the blister at bedside and recommended medical management for now and reevaluate later for DKA if not improved. We will continue with broad-spectrum IV antibiotics with IV Zosyn and vancomycin. Patient underwent hemodialysis with nephrology. We will also obtain infectious disease consult. Charles Steele MD
--- NOTE | 2025-03-16 09:24 | PC.NURSE ---
Patient to dialysis via bed, stable condition.
--- NOTE | 2025-03-16 09:41 | PC.NURSE ---
@[id number] Attempted to call tyree Gonzalez @[phone], no answer and unable to leave message.
--- NOTE | 2025-03-16 09:41 | PC.LAC ---
Attempted to call son Jovanyestephania @ [phone], phone number unable to accept calls at this time.
[2025-03-16 09:53] LABS: Lactate (Lactic Acid) 2.4 mMol/L (0.4-2.0)
--- NOTE | 2025-03-16 09:55 | PD.RESCONSUL ---
[facility] Data of Consult Consult date: 03/16/25 Requesting Physician: Brigid Carey MD Admitting Provider: Brigid Carey MD Attending Provider: Brigid Carey MD Primary Care Provider: Miguel Yoder MD Consult Narrative Reason for consult: ESRD- need for dialysis History of present illness: 55 y/o F with PMH of HTN, IDDM type II, HFpEF EF 55% on 08/2024, ESRD on HD TTS, presented to the hospital on 03/16/2025 due to worsening chronic BLE wounds, pain, and swelling for last 3 days. Patient complained of pain in both knees and feet, expecially on the left heel which was oozing with blood. Patient received hemodialysis session last saturday. Patient didn't had any recent trauma to any of her lower extremities. Denies chest pain, palpation, SOB, abdominal pain, N/V, fevers, or chills. Patient has been consulted for management of ESRD on HD ED course: Afebrile, HR 90, BP 158/71, satting upper 90s on room air. Negative COVID, influenza A/B. WBC 16.6, Hgb 11.1 (baseline 9.6), PLT 244. Normal coag panel. CHEM panel significant for sodium 133 around baseline, lactic acid 3.0, CRP 15.6, PRO-FRANCISCO 13.76, ESR 124. Renal function around baseline with CR 8.8, GFR 5, BUN 70, potassium of 3.5. She has anion gap of 18, likely CKD/uremia/lactic acidosis. UA negative for UTI. Preliminary right foot x-ray showed skin and soft tissue infection with possible necrosis (pending final read) Medical history: As stated above Surgical history: Surgery for cataract and kidney stones. Allergies: NKDA Medications: Pending official med rec Family history: Noncontributory Social history: Denies smoking cigarettes, drinking alcohol or using other illicit drugs ROS: All 12 systems assessed and the patient denies unless otherwise stated in HPI 03/16/2025: Labs reviewed and patient examined at the dialysis. Patient complained of worsening discomfort on her feet. Blood was still oozing on her left heel. Cr: 8.8, BUN: 70, eGFR: 5, Hgb: 11.1 MCV: 90. Patient received hemodialysis today. cc:: cc: Brigid Carey MD Review of Systems Review of Systems Narrative Review of Systems: All 12 systems assessed and the patient denies unless otherwise stated in HPI Exam Vital Signs Temp Pulse Resp BP Pulse Ox O2 Del Method O2 Flow Rate 98.2 F 75 18 107/73 99 Nasal Cannula 2 03/16/25 08:42 03/16/25 09:45 03/16/25 08:42 03/16/25 09:45 03/16/25 08:42 03/16/25 07:07 03/16/25 08:42 Narrative Exam General: No acute distress, well nourished, AAO x3 Eye: PERRL, EOMI, normal conjunctiva, no scleral icterus HENT: Normocephalic, atraumatic, hearing intact to conversation at normal volume, moist oral mucosa Neck: Supple, non-tender, no JVD, no lymphadenopathy Lungs: Non-labored respirations, symmetric chest rise, Clear to auscultate bilaterally, No wheezing, rhonchi, crackles Heart: Peripheral pulses intact bilaterally, Regular Rate and Rhythm. Abdomen: Soft, non-tender, non-distended, no palpable masses Musculoskeletal: Normal range of motion and strength,No visible joint swelling, +1 pitting edema BLE. Skin: Multiple abrasions and non-healing ulcers in bilateral knees and feet. Blood oozing on left heel. Tendor on palpation. Psychiatric: Cooperative, appropriate mood and affect, Awake and alert, not agitated Neuro: Cranial nerves II-XII grossly intact. Sensations intact to light touch. Results Labs 03/16/25 01:23 03/16/25 01:23 Labs: Short CBC 03/16/25 Range/Units 01:23 WBC 16.6 H (3.6-11.0) Thou/mm3 Hgb 11.1 L (12.0-16.0) g/dL Hct 33.5 L (36.0-46.0) % Plt Count 244 (140-440) Thou/mm3 BMP 03/16/25 01:23 Sodium 133 L Potassium 3.5 Chloride 92 L Carbon Dioxide 23.1 BUN 70 H Creatinine 8.8 H* Glucose 152 H Calcium 8.2 L Liver Function 03/16/25 Range/Units 01:23 Total Bilirubin 1.2 (0.3-1.2) mg/dL AST 21 (0-34) U/L ALT 13 (10-49) U/L Alkaline Phosphatase 98 (46-116) U/L Albumin 3.3 L (3.5-5.0) gm/dL Quality Measures Quality Measures none Medications Home Medications and Allergies Allergies Allergy/AdvReac Type Severity Reaction Status Date / Time No Known Allergies Allergy Verified 03/16/25 00:43 Visit Medications Acetaminophen (Acetaminophen 325 Mg Tablet) 650 mg PO Q6H PRN PRN Reason: PAIN SCALE 1-3 (mild Stop: 04/15/25 05:42 Acetaminophen (Acetaminophen 325 Mg Tablet) 650 mg PO Q6H PRN PRN Reason: Fever >100.4 Stop: 04/15/25 05:42 Hydrocodone Bitart/Acetaminophen (Hydrocodone/Apap 10325 Tab) 1 tab PO Q4HR PRN PRN Reason: PAIN SCALE 7-10 (Severe Stop: 03/21/25 05:42 Dextrose (Dextrose 50%-Water Inj 50 Ml Syringe) 25 ml IV Q15MIN PRN PRN Reason: BG 50-70 responsive npo pt Stop: 04/15/25 07:30 Dextrose (Dextrose 50%-Water Inj 50 Ml Syringe) 50 ml IV Q15MIN PRN PRN Reason: BG <50 OR BG <70 & pt unresponsive Stop: 04/15/25 07:30 Glucagon (Glucagon Inj 1 Mg Vial) 1 mg IM Q15MIN PRN PRN Reason: BG <70, and no IV access Heparin Sodium (Porcine) (Heparin Sod Inj 5000 Unit/Ml Vial) 5,000 unit SC BID LIU On Hold: 03/16/25 09:00 Stop: 03/30/25 08:59 Piperacillin Sod/Tazobactam (Sod 2.25 gm/ Sodium Chloride) 100 mls @ 200 mls/hr IV Q12HR LIU Stop: 03/23/25 06:59 Last Admin: 03/16/25 08:45 Dose: 200 mls/hr Albumin Human (Albuminar-25 Ivpb) 25 gm in 100 mls @ 100 mls/min IV PRN PRN PRN Reason: DIALYSIS Insulin Human Lispro (Insulin Lispro (Admelog) 1 Unit/0.01 Ml Unit) 0 unit SC ACHS LIU; Protocol Stop: 04/15/25 11:29 Ondansetron HCl (Ondansetron Inj 2 Mg/Ml Inj 2 Ml) 4 mg IVP Q6H PRN; Protocol PRN Reason: NAUSEA OR VOMITING Stop: 04/15/25 05:42 Oxycodone/Acetaminophen (Oxycodone/Apap 5/325 Tablet) 1 tab PO Q6H PRN PRN Reason: PAIN SCALE 4-6 (Moderate Stop: 03/21/25 05:42 Pantoprazole Sodium (Pantoprazole Inj 40 Mg Vial) 40 mg IVP QDAY LIU Stop: 04/15/25 08:59 Pharmacy Consult (Vancomycin Pharmacy To Dose 1 Each Each) 1 each IV QDAY PRN PRN Reason: CONSULT Stop: 04/15/25 08:59 Discontinued Medications Heparin Sodium (Porcine) (Heparin Sod Inj 5000 Unit/Ml Vial) 5,000 unit SC BID [facility] Stop: 03/30/25 08:59 Ceftriaxone Sodium/Dextrose (Rocephin/D5w 1gm Iv Premix) 1 g in 50 mls @ 100 mls/hr IV QDAY LIU Stop: 03/23/25 06:06 Last Admin: 03/16/25 06:28 Dose: Not Given Doxycycline Hyclate 100 mg/ (Sodium Chloride) 100 mls @ 100 mls/hr IV BID LIU Stop: 03/23/25 06:05 Last Infusion: 03/16/25 06:58 Dose: 0 mls/hr Lactated Ringer's (Lactated Ringers) 500 mls @ 999 mls/hr IV .Q31M ONE Stop: 03/16/25 06:13 Last Infusion: 03/16/25 06:23 Dose: Infused Clindamycin/Sodium Chloride (Cleocin/Ns Ivpb) 600 mg in 50 mls @ 100 mls/hr IV Q8HR LIU Stop: 03/23/25 06:59 Last Infusion: 03/16/25 07:54 Dose: Infused Vancomycin/Sodium Chloride (Vancomycin/Ns 1 Gm Ivpb) 200 mls @ 120 mls/hr IV X1 ONE Stop: 03/16/25 09:39 Assessment & Plan Plan 55-year-old female with PMHx of HTN, IDDM type II, HFpEF EF 55% on 08/2024, ESRD on HD TTS, presenting with right heel pain. Patient has been consulted to nephrology for managment of ESRD on HD #ESRD on hemodialysis. #Anemia of Chronic Kidney disease -On admission: Cr: 8.8, BUN: 70, eGFR: 5, Hgb: 11.1 MCV: 90 -The patient's hemodialysis session is Saturday, , and Saturday. -Hemodialysis sessions: 03/16 Plan: -Monitor renal function -Maintain fluid restriction, avoid nephrotoxic agents when possible, renally dose medications -Strict i and o -Received hemodialysis today. #Lactic Acidosis Type A vs. B #SSTI of Right heel #IDDM #HFrEF EF 55% 08/2024 -Management per Primary Hospitalist team Thank you for allowing us to participate in the care of your patient. Assessment and plan discussed with my attending physician Dr. Marely Melchor (PGY-1)- Internal medicine resident Attending Provider Attestation/Addendum Patient seen and examined with resident physician Dr. Melchor. Note reviewed, agree with findings and recommendations. Well-known to me from my dialysis unit ESRD Secondary to diabetic nephropathy. Noted to have a GFR less than 10. lactic acid elevated. + cellulitis. Anemic. Agreed for dialysis. Dialysis orders- Hemodialysis for 3 hours, blood flow 200, dialysate flow 400, 2K, ultrafiltration 2-2.5 L, Epogen 32381, no heparin ordered. Plan of care discussed with the dialysis nurse. Please see dialysis flowsheet for further details. Plan of care discussed with primary team. Thank you Bassem for allowing me to participate in the care of Ms. Aguilar
[2025-03-16] MEDS: ALBUMIN HUMAN 25% IVPB 25 GM/100 ML BTL IV (10:45)
--- NOTE | 2025-03-16 10:50 | PC.NURSE ---
BP TRENDING DOWN, PT REMAINS ASYMPTOMATIC WILL ADMIN PRN ALBUMIN AND LOWER UF GOAL TO 2.5L. WILL CONT. TO MONITOR
--- NOTE | 2025-03-16 11:09 | PC.NURSE ---
Attempted to call tyree Sdcornelia @[phone] again, unable to take calls at this time.
--- NOTE | 2025-03-16 11:19 | PD.SURCONS ---
HPI Consult details Consult date: 03/16/25 Reason for consultation narrative: Left foot osteomyelitis History of present illness: 55-year-old female with multiple medical comorbidities including cirrhosis of the liver, diabetes, hypertension, end-stage renal disease on dialysis presented with worsening pain in the left foot. Patient denies history of trauma, insect or spider bites. She has had an ulceration of the left heel that has been getting progressively worse. X-ray revealed osteomyelitis of the calcaneus Review of Systems Review of Systems ROS Unobtainable: unobtainable due to mental status Past Medical History Surgical History OTHER SURGICAL HX: Left upper extremity AV graft, tubal ligation, cataract Meds Home Medications and Allergies Allergies Allergy/AdvReac Type Severity Reaction Status Date / Time No Known Allergies Allergy Verified 03/16/25 00:43 Exam Vital Signs Temp Pulse Resp BP Pulse Ox O2 Del Method O2 Flow Rate 98.2 F 81 18 143/78 H 99 Nasal Cannula 2 03/16/25 08:42 03/16/25 11:15 03/16/25 08:42 03/16/25 11:15 03/16/25 08:42 03/16/25 07:07 03/16/25 08:42 Constitutional Constitutional: no acute distress Routine Extremities Exam Comments: Edema and cellulitis of left lower extremity extending up to mid leg. Blister formation of the left heel. Not palpable DP or PT pulses. The blister was unroofed and patient was noted to have necrotic soft tissue of left heel Assessment & Plan Additional Assessment Additional comments: Osteomyelitis of left heel. Blister formation with underlying necrotic soft tissue left heel Plan Blister was unroofed. Continue wound care, if no improvement she will likely require below the knee amputation
[2025-03-16 12:49] LABS: Reflex Lactate? Y
[2025-03-16] MEDS: VANCOMYCIN/NS 1 GM IVPB 200 ML IV (14:04)
[2025-03-16 14:06] LABS: Lactate (Lactic Acid) 2.8 mMol/L (0.4-2.0)
--- NOTE | 2025-03-16 16:31 | XR_ITS ---
Examination: Arterial duplex lower extremity study. Date and time of exam: March 16, 2025, 1641 hrs. Indications: Nonhealing diabetic foot ulcers Findings: Duplex sonographic imaging of the lower extremity arteries using B-mode/Monteiro scale imaging and Doppler spectral analysis and color flow. Ankle brachial indices have been recorded. Right common femoral artery demonstrates triphasic flow. Right superficial femoral artery demonstrates biphasic flow. Right popliteal artery demonstrates biphasic flow. Right posterior tibial artery demonstrated monophasic flow. Right ankle/brachial index is 0.4. Left common femoral artery demonstrates biphasic flow. Left superficial femoral artery demonstrates no flow. Left popliteal artery demonstrates monophasic flow. Left posterior tibial artery demonstrated monophasic flow. No left ankle brachial index because of dialysis catheter Impression: Severe bilateral peripheral obstructive arterial disease, consider correlation with CTA abdominal aorta iliofemoral runoff post intravenous contrast.
[2025-03-16] MEDS: ACETAMINOPHEN 325 MG TABLET 650 MG PO (16:39)
--- NOTE | 2025-03-16 16:40 | PC.NURSE ---
@1640 Patient oral temp 102.4, patient had 2 blankets plus patient's own plush blanket, patient under covers, blinds open. RN removed blankets and put flat sheet blanket to BLE up to knees, turned fan on, closed blinds and put 2 ice bags under patient's arm. Instructed patient to not be under covers.
[2025-03-16 17:04] LABS: Reflex Lactate? Y
[2025-03-16 17:28] LABS: Lactate (Lactic Acid) 2.8 mMol/L (0.4-2.0)
[2025-03-16 20:26] LABS: Reflex Lactate? Y
[2025-03-16] MEDS: HEPARIN SOD INJ 5000 UNIT/ML VIAL SC (20:36)
[2025-03-16] MEDS: PIPER/TAZO INJ 4.5 GM in SODIUM CHLORIDE 0.9% (POP) 100 ML IV (20:36)
[2025-03-16 21:35] LABS: Lactate (Lactic Acid) 1.7 mMol/L (0.4-2.0)
[2025-03-17] VITALS (7 sets, daily range): BP systolic 99–148; BP diastolic 62–96; PULSE 74–81; RESP 16–18; TEMP 35.7–36.9; O2SAT 98–100; BMI 29.7
[2025-03-17 06:03] LABS: Basophils # (Auto) 0.1 Thou/mm3 (0.0-0.2); Basophils % (Auto) 0 % (0-2.5); Eosinophils # (Auto) 0.1 Thou/mm3 (0.0-0.5); Eosinophils % (Auto) 0 % (0-10); Hematocrit 32.0 % (36.0-46.0); Hemoglobin 10.5 g/dL (12.0-16.0); Immature Granulocytes Auto 0.21 Thou/mm3 (0.00-0.00); Lymphocytes # (Auto) 1.0 Thou/mm3 (1.0-4.8); Lymphocytes % (Auto) 6 % (10-50); Mean Corpuscular HGB Conc 32.8 g/dl (31.0-37.0); Mean Corpuscular Hemoglobin 29.6 pg (25.0-35.0); Mean Corpuscular Volume 90 fL (80-100); Monocytes # (Auto) 1.3 Thou/mm3 (0.0-0.8); Monocytes % (Auto) 8 % (0-12); Neutrophils # (Auto) 13.8 Thou/mm3 (1.8-7.7); Neutrophils % (Auto) 84 % (37-80); Nucleated Red Blood Cell # 0.00 Thou/mm3 (0.00-0.00); Nucleated Red Blood Cell % 0 /100 WBC (0); Platelet Count 232 Thou/mm3 (140-440); RDW Standard Deviation 54.1 fL (36.4-46.3); Red Blood Count 3.55 Miln/mm3 (4.00-5.20); White Blood Count 16.4 Thou/mm3 (3.6-11.0)
[2025-03-17 06:59] LABS: Alanine Aminotransferase 8 U/L (10-49); Albumin, Serum 3.2 gm/dL (3.5-5.0); Albumin/Globulin Ratio 1.1 (1.2-2.2); Alkaline Phosphatase 84 U/L (46-116); Anion Gap 16 (7-16); Aspartate Amino Transferase 16 U/L (0-34); BUN/Creatinine Ratio 6 Ratio (12-20); Bilirubin,Total 1.3 mg/dL (0.3-1.2); Blood Urea Nitrogen 44 mg/dL (9-23); Calcium 8.1 mg/dL (8.3-10.6); Calcium (Corrected) 8.7 mg/dL (8.5-10.1); Carbon Dioxide 26.6 mMol/L (20.0-31.0); Chloride 96 mMol/L (98-107); Creatinine (Component) 7.3 mg/dL (0.6-1.3); Estimated Creatinine Clearance 7.9 mL/min (>60); Globulin 2.8 gm/dL (2.3-3.5); Glucose 93 mg/dL (74-106); Magnesium 2.3 mg/dL (1.6-2.6); Osmolality,Calculated 288 (275-295); Phosphorous 5.7 mg/dL (2.4-5.1); Potassium 4.6 mMol/L (3.4-5.1); Sodium 139 mMol/L (136-145); Total Protein 6.0 gm/dL (5.7-8.2); Vancomycin,Random 16.5 mcg/mL; eGFR 6 See Note
--- NOTE | 2025-03-17 07:32 | XR_ITS ---
Examination: CTA abdominal aorta iliofemoral runoff. 2-D sagittal coronal reconstructions. 3-D reconstructions, vascular March 17, 2025, 1605 hours INDICATIONS: Leg pain and swelling this week Technique: Multiple CTA images of the abdominal aorta iliofemoral runoff arterial vessels, 2.0 mm slice thickness, post intravenous administration 130 cc [id number] 2-D sagittal coronal reconstructions. 3-D reconstructions, vascular 3-D postprocessing, including vascular maximum intensity projection images, 3-D volume rendering Low dose protocols were performed. One or more of the following dose reduction techniques were used; automated exposure control, adjustment of the mA and/or KV according to patient size, use of iterative reconstruction technique. Findings: With small right minimal left pleural fluid Liver is irregular in contour with moderate ascites, anasarca Subtle splenic lesions which may represent infarcts Atrophic kidneys Gallbladder wall is thickened but again the patient has ascites No bowel obstruction Atrophic uterus Marked thickening of urinary bladder No bowel obstruction Calcification abdominal aorta but no aneurysmal dilatation No significant stenoses common iliac external iliac or common femoral arteries Superficial femoral arteries are heavily calcified but patent Right popliteal artery fills There are multiple stenoses involving the mid and distal right posterior tibial artery Dorsalis pedis artery fills Left posterior tibial artery is attenuated although trifurcation vessels fill the ankle IMPRESSION: Multiple significant stenoses involving the mid and distal right posterior tibial artery
--- NOTE | 2025-03-17 08:16 | PD.RESPRO ---
Documentation for date of: 03/17/25 Subjective Subjective Interval history: History of present illness: 55 y/o F with PMH of HTN, IDDM type II, HFpEF EF 55% on 08/2024, ESRD on HD TTS, presented to the hospital on 03/16/2025 due to worsening chronic BLE wounds, pain, and swelling for last 3 days. Patient complained of pain in both knees and feet, expecially on the left heel which was oozing with blood. Patient received hemodialysis session last saturday. Patient didn't had any recent trauma to any of her lower extremities. Denies chest pain, palpation, SOB, abdominal pain, N/V, fevers, or chills. Patient has been consulted for management of ESRD on HD ED course: Afebrile, HR 90, BP 158/71, satting upper 90s on room air. Negative COVID, influenza A/B. WBC 16.6, Hgb 11.1 (baseline 9.6), PLT 244. Normal coag panel. CHEM panel significant for sodium 133 around baseline, lactic acid 3.0, CRP 15.6, PRO-FRANCISCO 13.76, ESR 124. Renal function around baseline with CR 8.8, GFR 5, BUN 70, potassium of 3.5. She has anion gap of 18, likely CKD/uremia/lactic acidosis. UA negative for UTI. Preliminary right foot x-ray showed skin and soft tissue infection with possible necrosis (pending final read) Medical history: As stated above Surgical history: Surgery for cataract and kidney stones. Allergies: NKDA Medications: Pending official med rec Family history: Noncontributory Social history: Denies smoking cigarettes, drinking alcohol or using other illicit drugs ROS: All 12 systems assessed and the patient denies unless otherwise stated in HPI 03/16/2025: Labs reviewed and patient examined at the dialysis. Patient complained of worsening discomfort on her feet. Blood was still oozing on her left heel. Cr: 8.8, BUN: 70, eGFR: 5, Hgb: 11.1 MCV: 90. Patient received hemodialysis today. 03/17/2025: Labs reviewed and patient examined at the bedside. Patient noted her pain on both knees has decreased considerably. Patient is continuing to get wound care on her unroofed blisters of left heel. Today, patient had an episode of diarrhea in bed, but did not notify staff. She was observed reaching toward the stool with her fingers. Patient demonstrates limited awareness of personal hygiene and may benefit from close monitoring and assistance with self care. BP: 99/64, Cr:7.3, BUN:44, eGFR:6. Planned for hemodialysis tomorrow. Fluid restrict the patient to <1500ml per day. Exam Vital Signs Temp Pulse Resp BP Pulse Ox O2 Del Method O2 Flow Rate 97.4 F 76 18 148/72 H 100 Room Air 2 03/17/25 08:00 03/17/25 08:00 03/17/25 08:00 03/17/25 08:00 03/17/25 08:00 03/17/25 08:00 03/16/25 16:00 Narrative Exam General: No acute distress, well nourished, AAO x3 Eye: PERRL, EOMI, normal conjunctiva, no scleral icterus HENT: Normocephalic, atraumatic, hearing intact to conversation at normal volume, moist oral mucosa Neck: Supple, non-tender, no JVD, no lymphadenopathy Lungs: Non-labored respirations, symmetric chest rise, Clear to auscultate bilaterally, No wheezing, rhonchi, crackles Heart: Peripheral pulses intact bilaterally, Regular Rate and Rhythm. Abdomen: Soft, non-tender, non-distended, no palpable masses Musculoskeletal: Normal range of motion and strength,No visible joint swelling, +1 pitting edema BLE. Skin: Multiple abrasions in bilateral knees and feet. Tendor on palpation. Wound on left heel covered with sterile gauze bandage. Psychiatric: Cooperative, appropriate mood and affect, Awake and alert, not agitated Neuro: Cranial nerves II-XII grossly intact. Sensations intact to light touch. Objective Labs 03/18/25 05:01 03/18/25 05:01 Labs: Laboratory Results - last 24 hr 03/16/25 03/16/25 03/16/25 09:20 13:58 17:12 WBC RBC Hgb Hct MCV MCH MCHC RDW Std Deviation Plt Count Neut % (Auto) Lymph % (Auto) [place] % (Auto) Eos % (Auto) Baso % (Auto) Neut # (Auto) Lymph # (Auto) [place] # (Auto) Eos # (Auto) Baso # (Auto) Immature Gran # (Auto) Absolute Nucleated RBC Immature Gran % Nucleated RBC % Sodium Potassium Chloride Carbon Dioxide Anion Gap BUN Creatinine Estim Creat Clear Calc eGFR BUN/Creatinine Ratio Glucose Calculated Osmolality Lactic Acid 2.4 H 2.8 H 2.8 H Calcium Corrected Calcium Phosphorus Magnesium Total Bilirubin AST ALT Alkaline Phosphatase Total Protein Albumin Globulin Albumin/Globulin Ratio Random Vancomycin 03/16/25 03/17/25 21:15 04:30 WBC 16.4 H RBC 3.55 L Hgb 10.5 L Hct 32.0 L MCV 90 MCH 29.6 MCHC 32.8 RDW Std Deviation 54.1 H Plt Count 232 Neut % (Auto) 84 H Lymph % (Auto) 6 L [place] % (Auto) 8 Eos % (Auto) 0 Baso % (Auto) 0 Neut # (Auto) 13.8 H Lymph # (Auto) 1.0 [place] # (Auto) 1.3 H Eos # (Auto) 0.1 Baso # (Auto) 0.1 Immature Gran # (Auto) 0.21 H Absolute Nucleated RBC 0.00 Immature Gran % 1 H Nucleated RBC % 0 Sodium 139 Potassium 4.6 D Chloride 96 L Carbon Dioxide 26.6 Anion Gap 16 BUN 44 H Creatinine 7.3 H* D Estim Creat Clear Calc 7.9 L eGFR 6 L* BUN/Creatinine Ratio 6 L Glucose 93 D Calculated Osmolality 288 Lactic Acid 1.7 Calcium 8.1 L Corrected Calcium 8.7 Phosphorus 5.7 H Magnesium 2.3 Total Bilirubin 1.3 H AST 16 ALT 8 L Alkaline Phosphatase 84 Total Protein 6.0 Albumin 3.2 L Globulin 2.8 Albumin/Globulin Ratio 1.1 L Random Vancomycin 16.5 Quality Measures Quality Measures none Assessment & Plan Assessment Current Active Medications: Generic Name Dose Route Start Last Admin Trade Name Freq PRN Reason Stop Dose Admin Acetaminophen 650 mg 03/16/25 05:43 Acetaminophen 325 Mg Tablet PO 04/15/25 05:42 Q6H PRN PAIN SCALE 1-3 (mild Acetaminophen 650 mg 03/16/25 05:43 03/16/25 16:39 Acetaminophen 325 Mg Tablet PO 04/15/25 05:42 650 mg Q6H PRN Administration Fever >100.4 Hydrocodone Bitart/Acetaminophen 1 tab 03/16/25 05:43 Hydrocodone/Apap 10/325 Tab PO 03/21/25 05:42 Q4HR PRN PAIN SCALE 7-10 (Severe Dextrose 25 ml 03/16/25 07:31 Dextrose 50%-Water Inj 50 Ml Syringe IV 04/15/25 07:30 Q15MIN PRN BG 50-70 responsive npo pt Dextrose 50 ml 03/16/25 07:31 Dextrose 50%-Water Inj 50 Ml Syringe IV 04/15/25 07:30 Q15MIN PRN BG <50 OR BG <70 & pt unresponsive Glucagon 1 mg 03/16/25 07:31 Glucagon Inj 1 Mg Vial IM Q15MIN PRN BG <70, and no IV access Heparin Sodium (Porcine) 5,000 unit 03/16/25 09:00 03/16/25 20:36 Heparin Sod Inj 5000 Unit/Ml Vial SC 03/30/25 08:59 5,000 unit BID LIU Administration Albumin Human 25 gm in 100 mls @ 100 mls/min 03/16/25 07:48 03/16/25 10:45 Albuminar-25 Ivpb IV 100 mls/min PRN PRN Administration DIALYSIS Piperacillin Sod/Tazobactam 100 mls @ 25 mls/hr 03/16/25 21:00 03/17/25 00:36 Sod 4.5 gm/ Sodium Chloride IV 03/23/25 20:59 Infused Q12HR LIU Infusion Vancomycin/Sodium Chloride 100 mls @ 120 mls/hr 03/17/25 10:00 Vancomycin/Ns 500 Mg Ivpb IV 03/17/25 10:49 X1 ONE Insulin Human Lispro 0 unit 03/16/25 11:30 03/16/25 20:35 Insulin Lispro (Admelog) 1 Unit/0.01 Ml Unit SC 04/15/25 11:29 Not Given ACHS [facility] Protocol Ondansetron HCl 4 mg 03/16/25 05:43 Ondansetron Inj 2 Mg/Ml Inj 2 Ml IVP 04/15/25 05:42 Q6H PRN NAUSEA OR VOMITING Protocol Oxycodone/Acetaminophen 1 tab 03/16/25 05:43 Oxycodone/Apap 5/325 Tablet PO 03/21/25 05:42 Q6H PRN PAIN SCALE 4-6 (Moderate Pantoprazole Sodium 40 mg 03/16/25 14:00 03/16/25 14:03 Pantoprazole Inj 40 Mg Vial IVP 04/15/25 08:59 40 mg QDAY [facility] Administration Pharmacy Consult 1 each 03/16/25 09:00 Vancomycin Pharmacy To Dose 1 Each Each IV 04/15/25 08:59 QDAY PRN CONSULT Plan 55-year-old female with PMHx of HTN, IDDM type II, HFpEF EF 55% on 08/2024, ESRD on HD TTS, presenting with right heel pain. Patient has been consulted to nephrology for managment of ESRD on HD #ESRD on hemodialysis. #Anemia of Chronic Kidney disease -On admission: Cr: 8.8, BUN: 70, eGFR: 5, Hgb: 11.1 MCV: 90 -The patient's hemodialysis session is Saturday, , and Saturday. -Currently, BP: 99/64, Cr:7.3, BUN:44, eGFR:6 -Hemodialysis sessions: 03/16 Plan: -Monitor renal function -Maintain fluid restriction, avoid nephrotoxic agents when possible, renally dose medications -Strict i and o -Planned for hemodialysis tomorrow. -Fluid restrict the patient to <1500ml per day. #Lactic Acidosis Type A vs. B #SSTI of Right heel #IDDM #HFrEF EF 55% 08/2024 -Management per Primary Hospitalist team Thank you for allowing us to participate in the care of your patient. Assessment and plan discussed with my attending physician Dr. Marely Melchor (PGY-1)- Internal medicine resident Attending Provider Attestation/Addendum Patient seen and examined with resident physician Dr. Melchor. Note reviewed, agree with findings and recommendations. Well-known to me from my dialysis unit ESRD Secondary to diabetic nephropathy. Left heel diabetic ulcer. Under the care of Dr. Davey. Next dialysis scheduled for tomorrow Plan of care discussed with primary team.
[2025-03-17] MEDS: PIPER/TAZO INJ 4.5 GM in SODIUM CHLORIDE 0.9% (POP) 100 ML IV (09:34)
[2025-03-17] MEDS: HEPARIN SOD INJ 5000 UNIT/ML VIAL SC ×2 (09:40→20:39)
--- NOTE | 2025-03-17 09:52 | ECHO_ITS ---
Transthoracic Echo Report Ht (in): 63 Wt (lb): 168 Exam Location: Echo Lab Status: Inpatient Crop Production Advisor: Adrianne Zelaya Indications: Procedure Performed: BP: 143 / 91 HR: 74 MEASUREMENTS (Male / Female) Normal Values 2D ECHO LV Diastolic Diameter PLAX 4.4 cm 4.2 - 5.9 / 3.9 - 5.3 cm LV Systolic Diameter PLAX 3.2 cm IVS Diastolic Thickness 0.9 cm 0.6 - 1.0 / 0.6 - 0.9 cm LVPW Diastolic Thickness 1.0 cm 0.6 - 1.0 / 0.6 - 0.9 cm LV Relative Wall Thickness 0.4 LVOT Diameter 1.9 cm LV Ejection Fraction MOD BP 39.8 % >= 55 % LV Cardiac Index MOD BP 2102.2 cm?/min?m? LV Ejection Fraction MOD 4C 31.5 % LV Cardiac Index MOD 4C 1539.0 cm?/min?m? LV Ejection Fraction 4C AL 32.7 % LV Cardiac Index 4C AL 1628.7 cm?/min?m? LV Ejection Fraction MOD 2C 43.4 % LV Cardiac Index MOD 2C 2304.5 cm?/min?m? LV Ejection Fraction 2C AL 45.7 % LV Cardiac Index 2C AL 2471.9 cm?/min?m? LA Volume Index 28.3 cm?/m? 16 - 28 cm?/m? Ascending Aorta Diameter 2.6 cm M-MODE AV Cusp Separation MM 1.6 cm DOPPLER AV Peak Velocity 123.0 cm/s AV Peak Gradient 6.1 mmHg AV Mean Gradient 3.0 mmHg AV Velocity Time Integral 21.5 cm LVOT Peak Velocity 62.1 cm/s LVOT Peak Gradient 1.5 mmHg LVOT Velocity Time Integral 12.5 cm LVOT Cardiac Index 1405.7 cm?/min?m? AV Area Cont Eq vti 1.6 cm? AV Area Cont Eq pk 1.4 cm? MV Area PHT 5.5 cm? Mitral E Point Velocity 72.3 cm/s Mitral A Point Velocity 81.6 cm/s Mitral E to A Ratio 0.9 LV E' Lateral Velocity 8.3 cm/s Mitral E to LV E' Lateral Ratio 8.7 LV E' Septal Velocity 4.6 cm/s Mitral E to LV E' Septal Ratio 15.8 TR Peak Velocity 262.3 cm/s TR Peak Gradient 27.5 mmHg PV Peak Velocity 88.0 cm/s PV Peak Gradient 3.1 mmHg FINDINGS Left Ventricle Normal left ventricular size. Hypokinietic anterior septal wall motion. There is grade I diastolic dysfunction of the left ventricle (impaired relaxation pattern). The ejection fraction is visually estimated at 55 %. Right Ventricle The right ventricle is mildly dilated with moderately decreased systolic function. The estimated right ventricular systolic pressure, 47 mmHg. RAP 15 Left Atrium The left atrium is normal by two-dimensional, color flow and Doppler imaging with no structural abnormalities, no thrombus formation present. Right Atrium The right atrium is normal by two-dimensional imaging, color flow and Doppler imaging with no structural abnormalities, no thrombus formation present. Atrial Septum The interatrial septum appears normal with no evidence of a shunt. Aorta The aorta is normal by two-dimensional, color flow and Doppler interrogation. Mitral Valve Mild mitral regurgitation. Mildly decreased mobility of the anterior mitral valve leaflet. Aortic Valve The aortic valve is trileaflet and normal by two-dimensional, color flow and Doppler interrogation. There is no significant aortic valve regurgitation. Tricuspid Valve The tricuspid valve is normal by two-dimensional, color flow and Doppler interrogation. There is moderate tricuspid regurgitation. Pulmonic Valve Mild pulmonic valve regurgitation. Vessels Dilated IVC measuring 2.4cm Pericardium The pericardium is normal by two-dimensional imaging. There is no significant pericardial effusion. CONCLUSIONS Indication: Severe PAD Normal left ventricular size.Hypokinietic anterior septal wall motion. Grade I diastolic dysfunction. Approximate ejection fraction is 50-55%. The right ventricle is mildly dilated with moderately decreased systolic function.RVSP 47mmHg. RAP 15 Mild mitral regurgitation. Mildly decreased mobility of the anterior mitral valve leaflet. Moderate TR and mild PI Dilated IVC measuring 2.4cm Alcides Rosario (Electronically Signed) Final Date: 18 March 2025 12:18
[2025-03-17 10:51] LABS: Cardiac Risk Estimate 6.0 RATIO (3.7-5.6); Cholesterol 65 mg/dL (132-200); HDL Cholesterol < 10 mg/dL (40-60); LDL Cholesterol,Calculated 32 mg/dL (0-130); Triglycerides 115 mg/dL (30-150)
[2025-03-17] MEDS: VANCOMYCIN/NS 500 MG IVPB 100 ML 120 MG IV (11:03)
--- NOTE | 2025-03-17 11:19 | PD.SURPROG ---
Documentation for date of: 03/17/25 Subjective Subjective Narrative: Patient is seen and examined. She is resting comfortably Exam Vital Signs Temp Pulse Resp BP Pulse Ox O2 Del Method O2 Flow Rate 97.4 F 76 18 148/72 H 100 Room Air 2 03/17/25 08:00 03/17/25 08:00 03/17/25 08:00 03/17/25 08:00 03/17/25 08:00 03/17/25 08:00 03/16/25 16:00 Constitutional Constitutional: no acute distress Routine Extremities Exam Comments: Edema and cellulitis of left lower extremity has improved. She has osteomyelitis and necrotic tissue of left heel Assessment & Plan Assessment Additional comments: Osteomyelitis of left heel with necrotic soft tissue Plan I explained to the patient that she may require below the knee amputation. She does not wish to proceed with surgery and wishes to continue with antibiotic and wound care. I will sign off , please call for any questions
[2025-03-17] MEDS: INSULIN LISPRO (AdmeLOG) 1 UNIT/0.01 ML UNIT SC ×3 (11:35→20:40)
--- NOTE | 2025-03-17 12:12 | PC.SS ---
Samantha Aguilar is a 55-year-old female admitted to Med Surg for Diabetic Foot Ulcer. SS conducted bedside contact with the patient to complete initial assessment and to discuss discharge planning. Role and reason explained. Patient confirmed demographic information. Patient lives with her family, she identifies her friend Husam Blood [phone] as her surrogate decision maker, as her son doesn?t have a phone at this time. Pt states she is able to complete all ADL?s independently, no need for DME. Pts PCP is Dr. Yoder, [facility], Database Specialist is Dr. Yap ([facility]). Pharmacy of choice is [facility]. Discharge options discussed and the pt wishes to return home.? Family will provide transportation upon DC. No further intervention required at this time, social scientist would be available to address any further concerns. DC Plan: Home Contact: Friend Husam Address: Confirmed on face sheet PCP: Paresh (6 months ago last apt)
--- NOTE | 2025-03-17 12:35 | PC.SS ---
Rounding: On IV ABX, pending CT, DC plan home
--- NOTE | 2025-03-17 13:46 | ESPR_ITS ---
Subjective Subjective Interval history: hx notd. pt unaware of dx of cirrhosis on file. no cause noted. labs abn some time ago, better since then. occ missed hd noted. due to diarrhea Exam Vital Signs Temp Pulse Resp BP Pulse Ox O2 Del Method O2 Flow Rate 97.0 F 76 18 143/91 H 98 Room Air 2 03/17/25 11:41 03/17/25 12:00 03/17/25 11:41 03/17/25 11:41 03/17/25 11:41 03/17/25 11:41 03/16/25 16:00 Narrative Exam mild llq tenderness noted. L heel drainage too. imaging reports noted. Objective - Internal Medicine Labs 03/17/25 04:30 03/17/25 04:30 Labs: Laboratory Results - last 24 hr 03/16/25 03/16/25 03/16/25 13:58 17:12 21:15 WBC RBC Hgb Hct MCV MCH MCHC RDW Std Deviation Plt Count Neut % (Auto) Lymph % (Auto) [place] % (Auto) Eos % (Auto) Baso % (Auto) Neut # (Auto) Lymph # (Auto) [place] # (Auto) Eos # (Auto) Baso # (Auto) Immature Gran # (Auto) Absolute Nucleated RBC Immature Gran % Nucleated RBC % Sodium Potassium Chloride Carbon Dioxide Anion Gap BUN Creatinine Estim Creat Clear Calc eGFR BUN/Creatinine Ratio Glucose Calculated Osmolality Lactic Acid 2.8 H 2.8 H 1.7 Calcium Corrected Calcium Phosphorus Magnesium Total Bilirubin AST ALT Alkaline Phosphatase Total Protein Albumin Globulin Albumin/Globulin Ratio Triglycerides Cholesterol LDL Cholesterol, Calc HDL Cholesterol Cholesterol/HDL Ratio Random Vancomycin 03/17/25 04:30 WBC 16.4 H RBC 3.55 L Hgb 10.5 L Hct 32.0 L MCV 90 MCH 29.6 MCHC 32.8 RDW Std Deviation 54.1 H Plt Count 232 Neut % (Auto) 84 H Lymph % (Auto) 6 L [place] % (Auto) 8 Eos % (Auto) 0 Baso % (Auto) 0 Neut # (Auto) 13.8 H Lymph # (Auto) 1.0 [place] # (Auto) 1.3 H Eos # (Auto) 0.1 Baso # (Auto) 0.1 Immature Gran # (Auto) 0.21 H Absolute Nucleated RBC 0.00 Immature Gran % 1 H Nucleated RBC % 0 Sodium 139 Potassium 4.6 D Chloride 96 L Carbon Dioxide 26.6 Anion Gap 16 BUN 44 H Creatinine 7.3 H* D Estim Creat Clear Calc 7.9 L eGFR 6 L* BUN/Creatinine Ratio 6 L Glucose 93 D Calculated Osmolality 288 Lactic Acid Calcium 8.1 L Corrected Calcium 8.7 Phosphorus 5.7 H Magnesium 2.3 Total Bilirubin 1.3 H AST 16 ALT 8 L Alkaline Phosphatase 84 Total Protein 6.0 Albumin 3.2 L Globulin 2.8 Albumin/Globulin Ratio 1.1 L Triglycerides 115 Cholesterol 65 L LDL Cholesterol, Calc 32 HDL Cholesterol < 10 L Cholesterol/HDL Ratio 6.0 H Random Vancomycin 16.5 Assessment & Plan A&P Narrative early osteo L heel by imaging diarrhea, cause pending cx no hx cirrhosis ckd5 on hd thru L arm fistula if bc from admit neg at 48h ok for fortazor cefepime, which ever the hd location has available 1-2 gm with each hd rx and doxy 100 po bid thru 04/26/25 if bc pos from admit then will see saturday for new plan. will see saturday if still here at that time. Time Spent With Patient Time: Total time spent is greater than 50% in coordination of care (as documented) at patient's floor/unit and/or counseling patient:
--- NOTE | 2025-03-17 14:17 | ESPR_ITS ---
<Statement entered by Yoel Dickson MD - 03/17/25 16:17> Patient seen and assessed in hospital bed status post deroofing procedure of left calcaneus from general surgery. Patient is awake and answering questions appropriately and denies have any concerning symptoms at this time. As per general surgery recommendations, patient will likely require below-knee amputation per osteomyelitis/cellulitis does not improve with IV antibiotics. Infectious disease has recommended a antibiotic regimen which the patient will receive during dialysis sessions. Patient has high degree peripheral artery disease as noted by ultrasound as such CT of the lower extremity was ordered and is pending read. Patient will also require cardiac clearance prior to BKA as there is likely underlying coronary artery disease. Nephrology is on board regarding the patient's ESRD status and she is getting scheduled dialysis. Will continue to monitor the patient for any acute changes. I have personally seen and examined the patient. I agree with the resident's assessment and plan as documented below. Yoel Dickson DO PGY-2 Internal Medicine - [facility] Documentation for date of: 03/17/25 Subjective Subjective Interval history: No acute events overnight. Patient reports 1 month history of diarrhea, about 6-7 episodes per day. Denies hematochezia or melena. Ordered stool calprotectin, stool culture, Giardia. Low suspicion for C. difficile given no history of fever, nausea, vomiting at beginning of episodes. Patient was informed that because of her uncontrolled blood glucose and severe chronic peripheral artery disease and lower extremities bilaterally, ulcer has progressed to osteomyelitis. Currently treating with IV Vanco and Zosyn, may result in BKA worsens. Wound care following. Consulted ID Dr Banuelos, recommended if blood cultures are negative for 48 hours, recommend transitioning to cefepime 1 to 2 g prior dialysis session and Doxy 100 p.o. twice daily until 04/26/2025. If positive, will revisit antibiotic regimen on Saturday. Plan for dialysis tomorrow. Discussed possibility of home health on discharge, patient was not agreeable to plan at this time but is willing to hear more about options. Exam Vital Signs Temp Pulse Resp BP Pulse Ox O2 Del Method O2 Flow Rate 97.0 F 76 18 143/91 H 98 Room Air 2 03/17/25 11:41 03/17/25 12:00 03/17/25 11:41 03/17/25 11:41 03/17/25 11:41 03/17/25 11:41 03/16/25 16:00 Narrative Exam Physical Exam General: Awake and in no acute distress. Conversational. Appears older that actual age. HEENT: Normocephalic, atraumatic, mucous membranes moist. Edematous eyelids. Heart: Regular rate and rhythm, normal S1 and S2, no murmurs. Lungs: Clear to auscultation with no wheezing or crackles. Abdomen: Soft, nondistended, nontender, positive bowel sounds. No guarding or rebound tenderness. Neurologic: Alert and oriented x3, no gross neurological deficit, and patient able to move all 4 extremities. Extremities: Left heel wound, 2-3 cm, purulent drainage and malodorous. Erythema and swelling of left leg up to mid thigh, tender on palpation. Multiple healed ulcerations on bilateral legs. 2+ pitting edema bilaterally. Skin: No rash or ecchymoses. Objective Labs 03/17/25 04:30 03/17/25 04:30 Labs: Laboratory Results - last 24 hr 03/16/25 03/16/25 03/17/25 17:12 21:15 04:30 WBC 16.4 H RBC 3.55 L Hgb 10.5 L Hct 32.0 L MCV 90 MCH 29.6 MCHC 32.8 RDW Std Deviation 54.1 H Plt Count 232 Neut % (Auto) 84 H Lymph % (Auto) 6 L [place] % (Auto) 8 Eos % (Auto) 0 Baso % (Auto) 0 Neut # (Auto) 13.8 H Lymph # (Auto) 1.0 [place] # (Auto) 1.3 H Eos # (Auto) 0.1 Baso # (Auto) 0.1 Immature Gran # (Auto) 0.21 H Absolute Nucleated RBC 0.00 Immature Gran % 1 H Nucleated RBC % 0 Sodium 139 Potassium 4.6 D Chloride 96 L Carbon Dioxide 26.6 Anion Gap 16 BUN 44 H Creatinine 7.3 H* D Estim Creat Clear Calc 7.9 L eGFR 6 L* BUN/Creatinine Ratio 6 L Glucose 93 D Calculated Osmolality 288 Lactic Acid 2.8 H 1.7 Calcium 8.1 L Corrected Calcium 8.7 Phosphorus 5.7 H Magnesium 2.3 Total Bilirubin 1.3 H AST 16 ALT 8 L Alkaline Phosphatase 84 Total Protein 6.0 Albumin 3.2 L Globulin 2.8 Albumin/Globulin Ratio 1.1 L Triglycerides 115 Cholesterol 65 L LDL Cholesterol, Calc 32 HDL Cholesterol < 10 L Cholesterol/HDL Ratio 6.0 H Random Vancomycin 16.5 Quality Measures Quality Measures none Assessment & Plan Assessment Current Active Medications: Generic Name Dose Route Start Last Admin Trade Name Freq PRN Reason Stop Dose Admin Acetaminophen 650 mg 03/16/25 05:43 Acetaminophen 325 Mg Tablet PO 04/15/25 05:42 Q6H PRN PAIN SCALE 1-3 (mild Acetaminophen 650 mg 03/16/25 05:43 03/16/25 16:39 Acetaminophen 325 Mg Tablet PO 04/15/25 05:42 650 mg Q6H PRN Administration Fever >100.4 Hydrocodone Bitart/Acetaminophen 1 tab 03/16/25 05:43 Hydrocodone/Apap 10/325 Tab PO 03/21/25 05:42 Q4HR PRN PAIN SCALE 7-10 (Severe Dextrose 25 ml 03/16/25 07:31 Dextrose 50%-Water Inj 50 Ml Syringe IV 04/15/25 07:30 Q15MIN PRN BG 50-70 responsive npo pt Dextrose 50 ml 03/16/25 07:31 Dextrose 50%-Water Inj 50 Ml Syringe IV 04/15/25 07:30 Q15MIN PRN BG <50 OR BG <70 & pt unresponsive Doxycycline Hyclate 100 mg 03/17/25 21:00 Doxycycline 100 Mg Tablet PO 03/24/25 20:59 BID LIU Glucagon 1 mg 03/16/25 07:31 Glucagon Inj 1 Mg Vial IM Q15MIN PRN BG <70, and no IV access Heparin Sodium (Porcine) 5,000 unit 03/16/25 09:00 03/17/25 09:40 Heparin Sod Inj 5000 Unit/Ml Vial SC 03/30/25 08:59 5,000 unit BID LIU Administration Albumin Human 25 gm in 100 mls @ 100 mls/min 03/16/25 07:48 03/16/25 10:45 Albuminar-25 Ivpb IV 100 mls/min PRN PRN Administration DIALYSIS Cefepime HCl 1 gm/ Sodium 50 mls @ 100 mls/hr 03/17/25 21:00 Chloride IV 04/26/25 12:00 Q48HR@2100 [facility] Insulin Human Lispro 0 unit 03/16/25 11:30 03/17/25 11:35 Insulin Lispro (Admelog) 1 Unit/0.01 Ml Unit SC 04/15/25 11:29 1 unit ACHS LIU Administration Protocol Ondansetron HCl 4 mg 03/16/25 05:43 Ondansetron Inj 2 Mg/Ml Inj 2 Ml IVP 04/15/25 05:42 Q6H PRN NAUSEA OR VOMITING Protocol Oxycodone/Acetaminophen 1 tab 03/16/25 05:43 Oxycodone/Apap 5/325 Tablet PO 03/21/25 05:42 Q6H PRN PAIN SCALE 4-6 (Moderate Plan Patient is a 55-year-old female with PMHx of HTN, IDDM type II, HFpEF EF 55%, ESRD on HD TTS, who presented on 03/15 for left heel pain, admitted for osteomyelitits. #Osteomyelitis of right heel #Lactic Acidosis, resolved Presenting with right heel pain, with findings of soft tissue infection of the right heel. Denies trauma. She also had lactic acidosis of 3.0, likely combination type B from CKD and less likely type A since no sign sepsis at this point. X-ray left foot shows early osteomyelitis plantar surface of the calcaneus CT left lower extremity shows osteomyelitis calcaneus, with soft tissue infection adjacent to posterior calcaneus. Cellulitis pattern. Lactic acidosis resolved with IV fluid resuscitation. S/p 500 cc NS bolus and CFX x 1. Plan: ? IV Zosyn and vancomycin (03/16- ? Wound care ? Hemodialysis inpatient per TTS schedule - Consulted surgeon Dr. Davey, appreciate recommendations: consider BKA if worsens, IV abx for now - Consulted ID Dr. Banuelos for antibiotic management: if blood cultures negative for 48 hours, change to cefepime 1 to 2 g prior dialysis session and Doxy 100 p.o. twice daily until 04/26/2025. If positive, will revisit antibiotic regimen on Saturday. #Bilateral PAD of lower extremities, chronic On exam, lower extremities appeared edematous and warm to touch. Left leg more tender than right. Likely secondary to long history of uncontrolled diabetes and inconsistent medication follow up. Lower extremity duplex shows severe bilateral peripheral obstructive arterial disease, appears to be chronic, similar findings in 08/10/24. Plan: - Ordered CTA abdominal aorta iliofemoral runoff post IV contrast - Repeat echo for cardiac clearance - Consider antithrombotic therapy if becomes symptomatic - CTM #Diarrhea, chronic Reports 1 month history of loose stools, 6-7 episodes per day. Denies fevers, nausea, vomiting, hematochezia, melena. Given chronic nature, possibly IBS versus malabsorption versus medication induced. Of note, home medications include loperamide 2 mg prn, unclear if patient is taking this more than needed. No diarrhea since admission. Plan: - Ordered stool cultures and calprotectin - Ordered Giardia antigen - CTM bowel movements or signs of infection #ESRD on HD TTS Last hemodialysis on Saturday, renal panel appears at baseline. Follows Dr. Yap outpatient. Dialysis sessions: 03/16 (-3.2L) ? [employer] Dr. Yap consulted, appreciate recommendations ? TTS HD schedule #Hx of IDDM A1c 7.1 from 08/2024. Glucose 152 on admission. A1c 7.7 on 03/16. ? INSULIN sliding scale ? Accu-Cheks #HFrEF EF 55% (08/2024) Echo 08/2024: EF 55%. Hypokinetic anterior septal wall motion. RV is mildly dilated with moderately decreased systolic function. Estimated RVSP, 47mmHg. RAP 15. Mild MR. Has bilateral lower extremity edema likely combination HFpEF and ESRD. S/p 500 cc IVF for above-mentioned lactic acidosis. No signs or symptoms of CHF exacerbation. - Repeat echo as above ? Avoid too much fluid ? Hemodialysis above Health Maintenance Disposition: management of left foot diabetic ulcer DVT prophylaxis: heparin GI prophylaxis: protonix Bowel: Senna Diet: Carb consistent CODE STATUS: FULL Patient plan of care was discussed with the resident, Dr. Dickson, and attending physician, Dr. Rizo. Delmis Lazcano, PGY-1 Attending Provider Attestation/Addendum I attest that I was physically present for the evaluation, physical examination, lab and imaging review of the patient with the residents. I discussed the case with the residents and agree with the findings and plans of care as documented above. Charles Steele MD
--- NOTE | 2025-03-17 14:20 | ESCONSULT_ITS ---
<Statement entered by Kingsley Banuelos MD - 03/19/25 08:58> pt seen with resident. all findings confirmed. 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 The patient denies any injuries, trauma or stepping on sharp objects. Reported taking her meds as prescribed, and her diabetes mellitus has been well-controlled. She has occasionally missed her hemodialysis session, but has been fairly compliant with her medications and hemodialysis session, and last time she missed her hemodialysis session due to diarrhea. The patient denied any fever or chills, nausea or vomiting, headache, lightheadedness, chest pain, SOB, any changes in bowel or bladder habit, or abdominal pain. During my evaluation, her vitals were BP 143/91, pulse 76, RR 18, temperature 97.0, saturating 98% on 2 L NC. Labs revealed white count 16.4, hemoglobin 10.5, BUN 44, creatinine 7.3, calcium 8.7, phosphorus 5.7, albumin 3.2, HDL cholesterol less than 10, stool for white cells pending, calprotectin pending, Giardia antigen pending. Left foot x-ray revealed early osteomyelitis plantar surface of the calcaneus, lower extremity CT revealed osteomyelitis calcaneus, cellulitis pattern, soft tissue infection resistant to posterior calcaneus. Duplex bilateral lower extremity scan revealed severe bilateral peripheral obstructive arterial disease. PMH: As mentioned above Surgical history: Left arm fistula placement Family history: Unremarkable Social history: Lives with family, denies alcohol, tobacco or illicit drug use Allergies: No known allergies Medications: Pending medical reconciliation The patient was started on cefepime and vancomycin and admitted to hospital for further management of left calcaneal osteomyelitis. cc:: cc: Brigid Carey MD Review of Systems Review of Systems Systems Reviewed: All systems reviewed, normal except as documented (As above) Exam Vital Signs Temp Pulse Resp BP Pulse Ox O2 Del Method O2 Flow Rate 97.0 F 76 18 143/91 H 98 Room Air 2 03/17/25 11:41 03/17/25 12:00 03/17/25 11:41 03/17/25 11:41 03/17/25 11:41 03/17/25 11:41 03/16/25 16:00 Narrative Exam General: No acute distress, Alert and Oriented x 3 HEENT: Moist mucous membranes, oropharynx clear Neck: Supple, No masses, No JVD CVS: S1S2 Regular rate and rhythm, No murmurs, rubs or gallops Lungs: Clear to auscultation with no accessory use, no wheeze no rhonchi Abd: Soft, NT/ND, +BS, no organomegaly Ext: Left calcaneal eschar, covered with clean dressing, bilateral leg skin wrinkling, feeble peripheral pulses, left arm with AV fistula Skin: No rash Psych: Appropriate mood and affect Results Labs 03/19/25 04:30 03/19/25 04:30 Labs: Short CBC 03/17/25 Range/Units 04:30 WBC 16.4 H (3.6-11.0) Thou/mm3 Hgb 10.5 L (12.0-16.0) g/dL Hct 32.0 L (36.0-46.0) % Plt Count 232 (140-440) Thou/mm3 BMP 03/17/25 04:30 Sodium 139 Potassium 4.6 D Chloride 96 L Carbon Dioxide 26.6 BUN 44 H Creatinine 7.3 H* D Glucose 93 D Calcium 8.1 L Liver Function 03/17/25 Range/Units 04:30 Total Bilirubin 1.3 H (0.3-1.2) mg/dL AST 16 (0-34) U/L ALT 8 L (10-49) U/L Alkaline Phosphatase 84 (46-116) U/L Albumin 3.2 L (3.5-5.0) gm/dL Quality Measures Quality Measures none Medications Home Medications and Allergies Allergies Allergy/AdvReac Type Severity Reaction Status Date / Time No Known Allergies Allergy Verified 03/16/25 00:43 Visit Medications Acetaminophen (Acetaminophen 325 Mg Tablet) 650 mg PO Q6H PRN PRN Reason: PAIN SCALE 1-3 (mild Stop: 04/15/25 05:42 Acetaminophen (Acetaminophen 325 Mg Tablet) 650 mg PO Q6H PRN PRN Reason: Fever >100.4 Stop: 04/15/25 05:42 Last Admin: 03/16/25 16:39 Dose: 650 mg Hydrocodone Bitart/Acetaminophen (Hydrocodone/Apap 10/325 Tab) 1 tab PO Q4HR PRN PRN Reason: PAIN SCALE 7-10 (Severe Stop: 03/21/25 05:42 Dextrose (Dextrose 50%-Water Inj 50 Ml Syringe) 25 ml IV Q15MIN PRN PRN Reason: BG 50-70 responsive npo pt Stop: 04/15/25 07:30 Dextrose (Dextrose 50%-Water Inj 50 Ml Syringe) 50 ml IV Q15MIN PRN PRN Reason: BG <50 OR BG <70 & pt unresponsive Stop: 04/15/25 07:30 Doxycycline Hyclate (Doxycycline 100 Mg Tablet) 100 mg PO BID [facility] Stop: 03/24/25 20:59 Glucagon (Glucagon Inj 1 Mg Vial) 1 mg IM Q15MIN PRN PRN Reason: BG <70, and no IV access Heparin Sodium (Porcine) (Heparin Sod Inj 5000 Unit/Ml Vial) 5,000 unit SC BID [facility] Stop: 03/30/25 08:59 Last Admin: 03/17/25 09:40 Dose: 5,000 unit Albumin Human (Albuminar-25 Ivpb) 25 gm in 100 mls @ 100 mls/min IV PRN PRN PRN Reason: DIALYSIS Last Admin: 03/16/25 10:45 Dose: 100 mls/min Cefepime HCl 1 gm/ Sodium (Chloride) 50 mls @ 100 mls/hr IV Q48HR@2100 [facility] Stop: 04/26/25 12:00 Insulin Human Lispro (Insulin Lispro (Admelog) 1 Unit/0.01 Ml Unit) [facility]; Protocol Stop: 04/15/25 11:29 Last Admin: 03/17/25 11:35 Dose: 1 unit Ondansetron HCl (Ondansetron Inj 2 Mg/Ml Inj 2 Ml) 4 mg IVP Q6H PRN; Protocol PRN Reason: NAUSEA OR VOMITING Stop: 04/15/25 05:42 Oxycodone/Acetaminophen (Oxycodone/Apap 5/325 Tablet) 1 tab PO Q6H PRN PRN Reason: PAIN SCALE 4-6 (Moderate Stop: 03/21/25 05:42 Discontinued Medications Heparin Sodium (Porcine) (Heparin Sod Inj 5000 Unit/Ml Vial) 5,000 unit SC BID [facility] Stop: 03/30/25 08:59 Ceftriaxone Sodium/Dextrose (Rocephin/D5w 1gm Iv Premix) 1 g in 50 mls @ 100 mls/hr IV QDAY [facility] Stop: 03/23/25 06:06 Last Admin: 03/16/25 06:28 Dose: Not Given Doxycycline Hyclate 100 mg/ (Sodium Chloride) 100 mls @ 100 mls/hr IV BID [facility] Stop: 03/23/25 06:05 Last Infusion: 03/16/25 06:58 Dose: 0 mls/hr Lactated Ringer's (Lactated Ringers) 500 mls @ 999 mls/hr IV .Q31M ONE Stop: 03/16/25 06:13 Last Infusion: 03/16/25 06:23 Dose: Infused Piperacillin Sod/Tazobactam (Sod 2.25 gm/ Sodium Chloride) 100 mls @ 200 mls/hr IV Q12HR [facility] Stop: 03/23/25 06:59 Last Admin: 03/16/25 08:45 Dose: 200 mls/hr Clindamycin/Sodium Chloride (Cleocin/Ns Ivpb) 600 mg in 50 mls @ 100 mls/hr IV Q8HR [facility] Stop: 03/23/25 06:59 Last Infusion: 03/16/25 07:54 Dose: Infused Piperacillin Sod/Tazobactam (Sod 4.5 gm/ Sodium Chloride) 100 mls @ 25 mls/hr IV Q12HR [facility] Stop: 03/23/25 20:59 Last Admin: 03/17/25 09:34 Dose: 25 mls/hr Vancomycin/Sodium Chloride (Vancomycin/Ns 1 Gm Ivpb) 200 mls @ 120 mls/hr IV X1 ONE Stop: 03/16/25 16:39 Last Admin: 03/16/25 14:04 Dose: 120 mls/hr Vancomycin/Sodium Chloride (Vancomycin/Ns 500 Mg Ivpb) 100 mls @ 120 mls/hr IV X1 ONE Stop: 03/17/25 10:49 Last Admin: 03/17/25 11:03 Dose: 120 mls/hr Ceftriaxone Sodium/Dextrose (Rocephin/D5w 2gm) 2 gm in 50 mls @ 100 mls/hr IV QDAY [facility] Stop: 03/24/25 13:16 Last Admin: 03/17/25 13:33 Dose: Not Given Cefepime HCl 2 gm/ Sodium (Chloride) 50 mls @ 100 mls/hr IV Q12HR [facility] Stop: 03/24/25 13:19 Last Admin: 03/17/25 13:32 Dose: Not Given Pantoprazole Sodium (Pantoprazole Inj 40 Mg Vial) 40 mg IVP QDAY [facility] Stop: 04/15/25 08:59 Last Admin: 03/16/25 15:57 Dose: Not Given Pantoprazole Sodium (Pantoprazole Inj 40 Mg Vial) 40 mg IVP QDAY [facility] Stop: 04/15/25 08:59 Last Admin: 03/17/25 09:40 Dose: 40 mg Pharmacy Consult (Vancomycin Pharmacy To Dose 1 Each Each) 1 each IV QDAY PRN PRN Reason: CONSULT Stop: 04/15/25 08:59 Assessment & Plan Plan The patient is a 55-year-old female with significant past medical history of hypertension, insulin-dependent diabetes mellitus type 2, 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 The patient was started on cefepime and vancomycin and admitted to hospital for further management of left calcaneal osteomyelitis. #Left foot calcaneal osteomyelitis #Severe peripheral bilateral obstructive arterial disease Left foot x-ray revealed early osteomyelitis plantar surface of the calcaneus, lower extremity CT revealed osteomyelitis calcaneus, cellulitis pattern, soft tissue infection resistant to posterior calcaneus. Duplex bilateral lower extremity scan revealed severe bilateral peripheral obstructive arterial disease. The patient was started on ceftriaxone and vancomycin. - Recommended cefepime 1g if bc from admit neg at 48h. 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 We will continue to follow-up on this patient. The patient's management plan was discussed with my attending physician MD Ajit Luz MD, PGY3
--- NOTE | 2025-03-17 15:01 | ESCONSULT_ITS ---
RE: CLAUDE GU : 1970 DATE OF CONSULTATION: 03/17/2025 REFERRING PHYSICIAN: Dr. Brigid Carey REASON FOR CONSULTATION: Chronic kidney disease, dialysis, and osteomyelitis of the left heel. HISTORY OF PRESENT ILLNESS: The patient has osteomyelitis of the left heel. She is not aware of the diagnosis of cirrhosis, which the primary team appears to have given her based on some labs in November. At that time, her platelets were low, coags were high, but she has improved since then and there is no suggestion of cirrhosis. Nonetheless, others have opted to not do procedures because of the history of cirrhosis. You may wish to remove this diagnosis or explain it further. She did miss some dialysis treatments this past week due to diarrhea, but otherwise does not miss dialysis regularly. She speaks a mixture of Hungarian and some other language. She is not very interactive. PAST MEDICAL HISTORY: Medical problems include diabetes. She does not have peripheral vascular disease. PAST SURGICAL HISTORY: Include dialysis access procedures including a fistula in the left arm. ALLERGIES: NONE NOTED. IMMUNIZATIONS: Last tetanus was many years ago, she has not certain when that was. She does take flu shot every year. She has had several COVID-19 injections and has had Pneumococcal vaccine. FAMILY HISTORY: Positive for diabetes. SOCIAL HISTORY: She lives with her and children. She has five children remaining. She is 7, para 6. PHYSICAL EXAMINATION: On exam, the patient is on oxygen. I am not certain why. I deferred to others in this regard. She does not appear to have pneumonia clinically as it may just be for comfort at a low dose. The staff are allowed to do that for some time. Her hepatitis panel is negative. She can likely go home if blood sugars are negative for 48 hours by tomorrow. She can finish treatment dialysis with Fortaz 1-2 grams after each dialysis along with oral doxycycline 100 mg p.o. b.i.d. as there are no positive cultures from sterilel sites. If one of the blood cultures return positive or if she has positive cultures from sterile sites or, if a diagnosis of bacterial diarrhea is made. Appropriate treatment can be made on the basis of those cultures. I will check on her superficially Saturday. If you wish to change her antibiotics, please remember that she does have early osteomyelitis of her heel and so you want to make sure that empiric antibiotics have broad coverage for that as well as for whatever else you are treating. DT: 13:59:04 TT: 14:36:00 Ref: [id number] - TID: [id number] MTDD
[2025-03-17 15:39] LABS: Stool for WBCs Negative (Negative)
[2025-03-17] MEDS: CEFEPIME INJ 1 GM in SODIUM CHLORIDE 0.9% (Popper) 50 ML IV (20:36)
[2025-03-17] MEDS: DOXYCYCLINE 100 MG TABLET PO (20:38)
[2025-03-18] VITALS (23 sets, daily range): BP systolic 120–172; BP diastolic 56–82; PULSE 68–87; RESP 17–19; TEMP 36.3–36.8; O2SAT 96–100; BMI 29.7
[2025-03-18 05:33] LABS: Sed Rate (ESR) 92 mm/hr (0-30)
[2025-03-18 05:54] LABS: Basophils # (Auto) 0.0 Thou/mm3 (0.0-0.2); Basophils % (Auto) 0 % (0-2.5); Eosinophils # (Auto) 0.1 Thou/mm3 (0.0-0.5); Eosinophils % (Auto) 1 % (0-10); Hematocrit 34.1 % (36.0-46.0); Hemoglobin 11.2 g/dL (12.0-16.0); Immature Granulocytes Auto 0.18 Thou/mm3 (0.00-0.00); Lymphocytes # (Auto) 0.9 Thou/mm3 (1.0-4.8); Lymphocytes % (Auto) 7 % (10-50); Mean Corpuscular HGB Conc 32.8 g/dl (31.0-37.0); Mean Corpuscular Hemoglobin 29.2 pg (25.0-35.0); Mean Corpuscular Volume 89 fL (80-100); Monocytes # (Auto) 0.9 Thou/mm3 (0.0-0.8); Monocytes % (Auto) 7 % (0-12); Neutrophils # (Auto) 12.2 Thou/mm3 (1.8-7.7); Neutrophils % (Auto) 85 % (37-80); Nucleated Red Blood Cell # 0.00 Thou/mm3 (0.00-0.00); Nucleated Red Blood Cell % 0 /100 WBC (0); Platelet Count 283 Thou/mm3 (140-440); RDW Standard Deviation 53.6 fL (36.4-46.3); Red Blood Count 3.83 Miln/mm3 (4.00-5.20); White Blood Count 14.5 Thou/mm3 (3.6-11.0)
[2025-03-18 06:12] LABS: Alanine Aminotransferase < 7 U/L (10-49); Albumin, Serum 3.2 gm/dL (3.5-5.0); Albumin/Globulin Ratio 1.0 (1.2-2.2); Alkaline Phosphatase 86 U/L (46-116); Anion Gap 16 (7-16); Aspartate Amino Transferase 14 U/L (0-34); BUN/Creatinine Ratio 5 Ratio (12-20); Bilirubin,Total 1.0 mg/dL (0.3-1.2); Blood Urea Nitrogen 36 mg/dL (9-23); C-Reactive Protein 16.7 mg/dL (0.0-0.9); Calcium 7.8 mg/dL (8.3-10.6); Calcium (Corrected) 8.4 mg/dL (8.5-10.1); Carbon Dioxide 23.1 mMol/L (20.0-31.0); Chloride 95 mMol/L (98-107); Creatinine (Component) 7.4 mg/dL (0.6-1.3); Estimated Creatinine Clearance 8.3 mL/min (>60); Globulin 3.1 gm/dL (2.3-3.5); Glucose 92 mg/dL (74-106); Magnesium 2.3 mg/dL (1.6-2.6); Osmolality,Calculated 276 (275-295); Phosphorous 5.0 mg/dL (2.4-5.1); Potassium 4.0 mMol/L (3.4-5.1); Sodium 134 mMol/L (136-145); Total Protein 6.3 gm/dL (5.7-8.2); eGFR 6 See Note
--- NOTE | 2025-03-18 08:29 | ESPR_ITS ---
Documentation for date of: 03/18/25 Subjective Subjective Interval history: History of present illness: 55 y/o F with PMH of HTN, IDDM type II, HFpEF EF 55% on 08/2024, ESRD on HD TTS, presented to the hospital on 03/16/2025 due to worsening chronic BLE wounds, pain, and swelling for last 3 days. Patient complained of pain in both knees and feet, expecially on the left heel which was oozing with blood. Patient received hemodialysis session last saturday. Patient didn't had any recent trauma to any of her lower extremities. Denies chest pain, palpation, SOB, abdominal pain, N/V, fevers, or chills. Patient has been consulted for management of ESRD on HD ED course: Afebrile, HR 90, BP 158/71, satting upper 90s on room air. Negative COVID, influenza A/B. WBC 16.6, Hgb 11.1 (baseline 9.6), PLT 244. Normal coag panel. CHEM panel significant for sodium 133 around baseline, lactic acid 3.0, CRP 15.6, PRO-FRANCISCO 13.76, ESR 124. Renal function around baseline with CR 8.8, GFR 5, BUN 70, potassium of 3.5. She has anion gap of 18, likely CKD/uremia/lactic acidosis. UA negative for UTI. Preliminary right foot x-ray showed skin and soft tissue infection with possible necrosis (pending final read) Medical history: As stated above Surgical history: Surgery for cataract and kidney stones. Allergies: NKDA Medications: Pending official med rec Family history: Noncontributory Social history: Denies smoking cigarettes, drinking alcohol or using other illicit drugs ROS: All 12 systems assessed and the patient denies unless otherwise stated in HPI 03/16/2025: Labs reviewed and patient examined at the dialysis. Patient complained of worsening discomfort on her feet. Blood was still oozing on her left heel. Cr: 8.8, BUN: 70, eGFR: 5, Hgb: 11.1 MCV: 90. Patient received hemodialysis today. 03/17/2025: Labs reviewed and patient examined at the bedside. Patient noted her pain on both knees has decreased considerably. Patient is continuing to get wound care on her unroofed blisters of left heel. Today, patient had an episode of diarrhea in bed, but did not notify staff. She was observed reaching toward the stool with her fingers. Patient demonstrates limited awareness of personal hygiene and may benefit from close monitoring and assistance with self care. BP: 99/64, Cr:7.3, BUN:44, eGFR:6. Planned for hemodialysis tomorrow. Fluid restrict the patient to <1500ml per day. 03/18/2025: Labs reviewed and patient examined at the dialysis. Patient complained of significant diarrhea. Will continue to monitor her renal function. Patient received hemodialysis today. BP 134/72, Cr: 7.4, BUN: 36, eGFR: 6. Exam Vital Signs Temp Pulse Resp BP Pulse Ox O2 Del Method O2 Flow Rate 98.0 F 70 18 139/67 H 100 Nasal Cannula 3 03/18/25 07:51 03/18/25 08:15 03/18/25 07:51 03/18/25 08:15 03/18/25 07:51 03/18/25 00:00 03/18/25 07:51 Narrative Exam General: No acute distress, well nourished, AAO x3 Eye: PERRL, EOMI, normal conjunctiva, no scleral icterus HENT: Normocephalic, atraumatic, hearing intact to conversation at normal volume, moist oral mucosa Neck: Supple, non-tender, no JVD, no lymphadenopathy Lungs: Non-labored respirations, symmetric chest rise, Clear to auscultate bilaterally, No wheezing, rhonchi, crackles Heart: Peripheral pulses intact bilaterally, Regular Rate and Rhythm. Abdomen: Soft, non-tender, non-distended, no palpable masses Musculoskeletal: Normal range of motion and strength,No visible joint swelling, +1 pitting edema BLE. Skin: Multiple abrasions in bilateral knees and feet. Tendor on palpation. Wound on left heel covered with sterile gauze bandage. Psychiatric: Cooperative, appropriate mood and affect, Awake and alert, not agitated Neuro: Cranial nerves II-XII grossly intact. Sensations intact to light touch. Objective Labs 03/18/25 05:01 03/18/25 05:01 Labs: Laboratory Results - last 24 hr 03/17/25 03/17/25 03/18/25 04:30 11:18 05:01 WBC 14.5 H RBC 3.83 L Hgb 11.2 L Hct 34.1 L MCV 89 MCH 29.2 MCHC 32.8 RDW Std Deviation 53.6 H Plt Count 283 D Neut % (Auto) 85 H Lymph % (Auto) 7 L [place] % (Auto) 7 Eos % (Auto) 1 Baso % (Auto) 0 Neut # (Auto) 12.2 H Lymph # (Auto) 0.9 L [place] # (Auto) 0.9 H Eos # (Auto) 0.1 Baso # (Auto) 0.0 Immature Gran # (Auto) 0.18 H Absolute Nucleated RBC 0.00 Immature Gran % 1 H Nucleated RBC % 0 ESR 92 H Sodium 134 L Potassium 4.0 D Chloride 95 L Carbon Dioxide 23.1 Anion Gap 16 BUN 36 H Creatinine 7.4 H* Estim Creat Clear Calc 8.3 L eGFR 6 L* BUN/Creatinine Ratio 5 L Glucose 92 Calculated Osmolality 276 Calcium 7.8 L Corrected Calcium 8.4 L Phosphorus 5.0 Magnesium 2.3 Total Bilirubin 1.0 AST 14 ALT < 7 L Alkaline Phosphatase 86 C-Reactive Prot, Quant 16.7 H Total Protein 6.3 Albumin 3.2 L Globulin 3.1 Albumin/Globulin Ratio 1.0 L Triglycerides 115 Cholesterol 65 L LDL Cholesterol, Calc 32 HDL Cholesterol < 10 L Cholesterol/HDL Ratio 6.0 H Stool for White Cells Negative Quality Measures Quality Measures none Assessment & Plan Assessment Current Active Medications: Generic Name Dose Route Start Last Admin Trade Name Freq PRN Reason Stop Dose Admin Acetaminophen 650 mg 03/16/25 05:43 Acetaminophen 325 Mg Tablet PO 04/15/25 05:42 Q6H PRN PAIN SCALE 1-3 (mild Acetaminophen 650 mg 03/16/25 05:43 03/16/25 16:39 Acetaminophen 325 Mg Tablet PO 04/15/25 05:42 650 mg Q6H PRN Administration Fever >100.4 Hydrocodone Bitart/Acetaminophen 1 tab 03/16/25 05:43 Hydrocodone/Apap 10/325 Tab PO 03/21/25 05:42 Q4HR PRN PAIN SCALE 7-10 (Severe Cholestyramine Resin 1 pkt 03/18/25 09:00 Cholestyramine/Sucrose 1 Pkt Ea PO 04/17/25 08:59 QDAY LIU Dextrose 25 ml 03/16/25 07:31 Dextrose 50%-Water Inj 50 Ml Syringe IV 04/15/25 07:30 Q15MIN PRN BG 50-70 responsive npo pt Dextrose 50 ml 03/16/25 07:31 Dextrose 50%-Water Inj 50 Ml Syringe IV 04/15/25 07:30 Q15MIN PRN BG <50 OR BG <70 & pt unresponsive Doxycycline Hyclate 100 mg 03/17/25 21:00 03/17/25 20:38 Doxycycline 100 Mg Tablet PO 03/24/25 20:59 100 mg BID LIU Administration Glucagon 1 mg 03/16/25 07:31 Glucagon Inj 1 Mg Vial IM Q15MIN PRN BG <70, and no IV access Heparin Sodium (Porcine) 5,000 unit 03/16/25 09:00 03/17/25 20:39 Heparin Sod Inj 5000 Unit/Ml Vial SC 03/30/25 08:59 5,000 unit BID LIU Administration Albumin Human 25 gm in 100 mls @ 100 mls/min 03/16/25 07:48 03/16/25 10:45 Albuminar-25 Ivpb IV 100 mls/min PRN PRN Administration DIALYSIS Cefepime HCl 1 gm/ Sodium 50 mls @ 100 mls/hr 03/17/25 21:00 03/17/25 20:36 Chloride IV 04/26/25 12:00 100 mls/hr Q48HR@2100 LIU Administration Insulin Human Lispro 0 unit 03/16/25 11:30 03/17/25 20:40 Insulin Lispro (Admelog) 1 Unit/0.01 Ml Unit SC 04/15/25 11:29 1 unit ACHS LIU Administration Protocol Ondansetron HCl 4 mg 03/16/25 05:43 Ondansetron Inj 2 Mg/Ml Inj 2 Ml IVP 04/15/25 05:42 Q6H PRN NAUSEA OR VOMITING Protocol Oxycodone/Acetaminophen 1 tab 03/16/25 05:43 Oxycodone/Apap 5/325 Tablet PO 03/21/25 05:42 Q6H PRN PAIN SCALE 4-6 (Moderate Plan 55-year-old female with PMHx of HTN, IDDM type II, HFpEF EF 55% on 08/2024, ESRD on HD TTS, presenting with right heel pain. Patient has been consulted to nephrology for managment of ESRD on HD #ESRD on hemodialysis. #Anemia of Chronic Kidney disease -On admission: Cr: 8.8, BUN: 70, eGFR: 5, Hgb: 11.1 MCV: 90 -The patient's hemodialysis session is Saturday, , and Saturday. -Currently, BP 134/72, Cr: 7.4, BUN: 36, eGFR: 6. -Hemodialysis sessions: 03/16, 03/18 Plan: -Monitor renal function -Maintain fluid restriction, avoid nephrotoxic agents when possible, renally dose medications -Strict i and o -Patient received hemodialysis today. #Lactic Acidosis Type A vs. B #left heel decubitus ulcer--surgical evaluation done. Patient with severe PVD. Might need a BKA. #IDDM #HFrEF EF 55% 08/2024 -Management per Primary Hospitalist team Thank you for allowing us to participate in the care of your patient. Assessment and plan discussed with my attending physician Dr. Marely Melchor (PGY-1)- Internal medicine resident Attending Provider Attestation/Addendum Patient seen and examined with resident physician Dr. Melchor. Note reviewed, agree with findings and recommendations. Well-known to me from my dialysis unit ESRD Secondary to diabetic nephropathy. Noted to have a GFR less than 10. lactic acid elevated. + cellulitis. Anemic. Agreed for dialysis. Dialysis orders- Hemodialysis for 3 hours, blood flow 200, dialysate flow 400, 2K, ultrafiltration 3-3.4 L, Epogen [id number], no heparin ordered. Plan of care discussed with the dialysis nurse. Please see dialysis flowsheet for further details. Plan of care discussed with primary team.
[2025-03-18] MEDS: LOPERAMIDE 2 MG CAPSULE 4 MG PO (09:26)
[2025-03-18 09:49] LABS: HIV (1&2) Antibody Rapid Non-Reactive
[2025-03-18 10:32] LABS: Campylobacter PCR Negative (Negative); Salmonella Species PCR Negative (Negative); Shiga Toxin PCR Negative (Negative); Shigella Species PCR Negative (Negative)
--- NOTE | 2025-03-18 14:22 | PD.RESDS ---
Planned Discharge Date 03/18/25 DS: Providers Provider Date of admission: 03/16/25 05:43 Primary care physician: Miguel Yoder MD Admitting Provider: Brigid Carey MD Attending Provider on Admission: Brigid Carey MD Consults: 03/16/25 05:41 Consult to Nephrology Routine Comment: HD TTS Consulting Provider: Diego Yap 03/16/25 06:43 Consult to General Surgery Stat Comment: LLE cellulitis, concern for nec fascitis Consulting Provider: Yolanda Davey 03/16/25 11:12 Consult to Infectious Diseases Routine Comment: Osteomyelitis of calcaneus Consulting Provider: Kingsley Banuelos 03/16/25 12:37 Referral Nutritional Services Routine Comment: Wounds Referral [facility]aling Dept Routine Comment: Left heel Referral Wound Care Routine Comment: Left heel Attending Provider on DC: Delmis Lazcano DO Discharging Provider: Delmis Lazcano DO Hospital Course Hospital Course Hospital course: History of present illness: 55 y/o F with PMH of HTN, IDDM type II, HFpEF EF 55% on 08/2024, ESRD on HD TTS, presented to the hospital on 03/16/2025 due to worsening chronic BLE wounds, pain, and swelling for last 3 days. Patient complained of pain in both knees and feet, expecially on the left heel which was oozing with blood. Patient received hemodialysis session last saturday. Patient didn't had any recent trauma to any of her lower extremities. Denies chest pain, palpation, SOB, abdominal pain, N/V, fevers, or chills. Patient has been consulted for management of ESRD on HD ED course: Afebrile, HR 90, BP 158/71, satting upper 90s on room air. Negative COVID, influenza A/B. WBC 16.6, Hgb 11.1 (baseline 9.6), PLT 244. Normal coag panel. CHEM panel significant for sodium 133 around baseline, lactic acid 3.0, CRP 15.6, PRO-FRANCISCO 13.76, ESR 124. Renal function around baseline with CR 8.8, GFR 5, BUN 70, potassium of 3.5. She has anion gap of 18, likely CKD/uremia/lactic acidosis. UA negative for UTI. Preliminary right foot x-ray showed skin and soft tissue infection with possible necrosis (pending final read) Medical history: As stated above Surgical history: Surgery for cataract and kidney stones. Allergies: NKDA Medications: Pending official med rec Family history: Noncontributory Social history: Denies smoking cigarettes, drinking alcohol or using other illicit drugs ROS: All 12 systems assessed and the patient denies unless otherwise stated in HPI 03/16/2025: Labs reviewed and patient examined at the dialysis. Patient complained of worsening discomfort on her feet. Blood was still oozing on her left heel. Cr: 8.8, BUN: 70, eGFR: 5, Hgb: 11.1 MCV: 90. Patient received hemodialysis today. 03/17/2025: Labs reviewed and patient examined at the bedside. Patient noted her pain on both knees has decreased considerably. Patient is continuing to get wound care on her unroofed blisters of left heel. Today, patient had an episode of diarrhea in bed, but did not notify staff. She was observed reaching toward the stool with her fingers. Patient demonstrates limited awareness of personal hygiene and may benefit from close monitoring and assistance with self care. BP: 99/64, Cr:7.3, BUN:44, eGFR:6. Planned for hemodialysis tomorrow. Fluid restrict the patient to <1500ml per day. 03/18/2025: Labs reviewed and patient examined at the dialysis. Patient complained of significant diarrhea. Will continue to monitor her renal function. Patient received hemodialysis today. BP 134/72, Cr: 7.4, BUN: 36, eGFR: 6. Time Spent with Patient Time attestation: Total time spent providing and/or coordinating discharge services: Exam Vital Signs Temp Pulse Resp BP Pulse Ox O2 Del Method O2 Flow Rate 98.2 F 75 18 147/77 H 100 Nasal Cannula 3 03/18/25 12:16 03/18/25 12:16 03/18/25 12:16 03/18/25 12:16 03/18/25 12:16 03/18/25 00:00 03/18/25 12:16 Discharge Plan Plan Patient Disposition: HOME (Self Care) Patient condition on transfer: Stable Care Plan Goals: Please take cefepime 1 gm IV with every dialysis session and doxycycline 100mg by mouth twice a day until 04/26/2025 Take cholestyramine 4g powder once a day for diarrhea Take sevelamer 800mg tablet before every meal three times a day for elevated phosphorous Please continue going to all scheduled dialysis appointments Follow-up with Dr. Yap (nephrology) within 1-2 weeks after discharge Follow-up with your PCP within 1 week of discharge - or follow-up at [facility] [address] [place] [address] 1) Follow up at [facility], [address] [place] [address]. Call [phone] for appointment. If your symptoms worsen or if you develop new chest pain, shortness of breath, severe abdominal pain or bleeding - please come back to the ED immediately Prescriptions/Referrals Prescriptions/Med Rec: New cholestyramine (with sugar) 4 gram Powder In Packet 4 g PO QDAY Qty: 60 0RF doxycycline hyclate 100 mg Tablet 100 mg PO BID 39 Days Qty: 78 0RF cefepime 1 gram recon soln 1 g IV QDAY Qty: 10 0RF Rx Instructions: To be given during dialysis sessions sevelamer carbonate 800 mg tablet 800 mg PO TID 30 Days Qty: 90 0RF Rx Instructions: must administer with a meal/food Discontinued loperamide [Anti-Diarrheal (loperamide)] 2 mg capsule 2 mg PO Q6H PRN (Reason: loose stool) Qty: 14 0RF Referrals: Miguel Yoder MD [Primary Care Provider, Family Practice] Diego Yap MD [Physician, Nephrology] Patient/Caregiver Discharge Instructions Print Language: Syriac Stand Alone Forms: Samantha Award Info., Patient Portal Info Letter
--- NOTE | 2025-03-18 14:44 | PC.SS ---
SS attempted to contact [facility] [phone], they are closed for the day. SS to follow up tomorrow for IV ABX order.
--- NOTE | 2025-03-18 14:46 | PD.RESPRO ---
Documentation for date of: 03/18/25 Subjective Subjective Interval history: Passed 8 bowel movements overnight, soft but not watery. Started on cholestyramine 4 g daily otherwise no new complaints. CTA abdominal aorta iliofemoral runoff shows multiple significant stenoses involving the mid and distal right posterior tibial artery, no occlusion in the left posterior tibial artery, will likely have good recovery outcomes if patient decides to get BKA. However at this time, patient is not interested in amputation. Consulted surgeon Dr. Davey, can treat with antibiotics for now, will consider BKA if ulcer does not heal. Blood cultures were negative for the past 48 hours, started on IV cefepime 1 g and doxycycline 100 mg twice daily per ID recommendations. Patient received dialysis today. Tolerated well. Exam Vital Signs Temp Pulse Resp BP Pulse Ox O2 Del Method O2 Flow Rate 98.2 F 75 18 147/77 H 100 Nasal Cannula 3 03/18/25 12:16 03/18/25 12:16 03/18/25 12:16 03/18/25 12:16 03/18/25 12:16 03/18/25 00:00 03/18/25 12:16 Narrative Exam Physical Exam General: Awake and in no acute distress. Conversational. Appears older that actual age. HEENT: Normocephalic, atraumatic, mucous membranes moist. Edematous eyelids. Heart: Regular rate and rhythm, normal S1 and S2, no murmurs. Lungs: Clear to auscultation with no wheezing or crackles. Abdomen: Soft, nondistended, nontender, positive bowel sounds. No guarding or rebound tenderness. Neurologic: Alert and oriented x3, no gross neurological deficit, and patient able to move all 4 extremities. Extremities: Left heel wound, 2-3 cm, purulent drainage and malodorous. Erythema and swelling of left leg up to mid thigh, tender on palpation. Multiple healed ulcerations on bilateral legs. 2+ pitting edema bilaterally. Skin: No rash or ecchymoses. Objective Labs 03/18/25 05:01 03/18/25 05:01 Labs: Laboratory Results - last 24 hr 03/17/25 03/18/25 11:18 05:01 WBC 14.5 H RBC 3.83 L Hgb 11.2 L Hct 34.1 L MCV 89 MCH 29.2 MCHC 32.8 RDW Std Deviation 53.6 H Plt Count 283 D Neut % (Auto) 85 H Lymph % (Auto) 7 L [place] % (Auto) 7 Eos % (Auto) 1 Baso % (Auto) 0 Neut # (Auto) 12.2 H Lymph # (Auto) 0.9 L [place] # (Auto) 0.9 H Eos # (Auto) 0.1 Baso # (Auto) 0.0 Immature Gran # (Auto) 0.18 H Absolute Nucleated RBC 0.00 Immature Gran % 1 H Nucleated RBC % 0 ESR 92 H Sodium 134 L Potassium 4.0 D Chloride 95 L Carbon Dioxide 23.1 Anion Gap 16 BUN 36 H Creatinine 7.4 H* Estim Creat Clear Calc 8.3 L eGFR 6 L* BUN/Creatinine Ratio 5 L Glucose 92 Calculated Osmolality 276 Calcium 7.8 L Corrected Calcium 8.4 L Phosphorus 5.0 Magnesium 2.3 Total Bilirubin 1.0 AST 14 ALT < 7 L Alkaline Phosphatase 86 C-Reactive Prot, Quant 16.7 H Total Protein 6.3 Albumin 3.2 L Globulin 3.1 Albumin/Globulin Ratio 1.0 L Stool for White Cells Negative Stool Campylobacter PCR Negative Stl E.coli Shiga Tox PCR Negative Stool Salmonella PCR Negative Stool Shigella PCR Negative HIV 1&2 Antibody Rapid Non-Reactive Quality Measures Quality Measures none Assessment & Plan Assessment Current Active Medications: Generic Name Dose Route Start Last Admin Trade Name Freq PRN Reason Stop Dose Admin Acetaminophen 650 mg 03/16/25 05:43 Acetaminophen 325 Mg Tablet PO 04/15/25 05:42 Q6H PRN PAIN SCALE 1-3 (mild Acetaminophen 650 mg 03/16/25 05:43 03/16/25 16:39 Acetaminophen 325 Mg Tablet PO 04/15/25 05:42 650 mg Q6H PRN Administration Fever >100.4 Hydrocodone Bitart/Acetaminophen 1 tab 03/16/25 05:43 Hydrocodone/Apap 10/325 Tab PO 03/21/25 05:42 Q4HR PRN PAIN SCALE 7-10 (Severe Cholestyramine Resin 1 pkt 03/18/25 09:00 03/18/25 09:00 Cholestyramine/Sucrose 1 Pkt Ea PO 04/17/25 08:59 Not Given QDAY LIU Dextrose 25 ml 03/16/25 07:31 Dextrose 50%-Water Inj 50 Ml Syringe IV 04/15/25 07:30 Q15MIN PRN BG 50-70 responsive npo pt Dextrose 50 ml 03/16/25 07:31 Dextrose 50%-Water Inj 50 Ml Syringe IV 04/15/25 07:30 Q15MIN PRN BG <50 OR BG <70 & pt unresponsive Doxycycline Hyclate 100 mg 03/17/25 21:00 03/18/25 09:00 Doxycycline 100 Mg Tablet PO 03/24/25 20:59 Not Given BID LIU Glucagon 1 mg 03/16/25 07:31 Glucagon Inj 1 Mg Vial IM Q15MIN PRN BG <70, and no IV access Heparin Sodium (Porcine) 5,000 unit 03/16/25 09:00 03/18/25 09:00 Heparin Sod Inj 5000 Unit/Ml Vial SC 03/30/25 08:59 Not Given BID LIU Albumin Human 25 gm in 100 mls @ 100 mls/min 03/16/25 07:48 03/16/25 10:45 Albuminar-25 Ivpb IV 100 mls/min PRN PRN Administration DIALYSIS Cefepime HCl 1 gm/ Sodium 50 mls @ 100 mls/hr 03/17/25 21:00 03/17/25 20:36 Chloride IV 04/26/25 12:00 100 mls/hr Q48HR@2100 LIU Administration Insulin Human Lispro 0 unit 03/16/25 11:30 03/18/25 07:15 Insulin Lispro (Admelog) 1 Unit/0.01 Ml Unit SC 04/15/25 11:29 Not Given ACHS COUNTS INCLUDE 234 BEDS AT THE [facility] Protocol Ondansetron HCl 4 mg 03/16/25 05:43 Ondansetron Inj 2 Mg/Ml Inj 2 Ml IVP 04/15/25 05:42 Q6H PRN NAUSEA OR VOMITING Protocol Oxycodone/Acetaminophen 1 tab 03/16/25 05:43 Oxycodone/Apap 5/325 Tablet PO 03/21/25 05:42 Q6H PRN PAIN SCALE 4-6 (Moderate Plan Patient is a 55-year-old female with PMHx of HTN, IDDM type II, HFpEF EF 55%, ESRD on HD TTS, who presented on 03/15 for left heel pain, admitted for osteomyelitits of left leg. #Osteomyelitis of left heel #Lactic Acidosis, resolved Presenting with right heel pain, with findings of soft tissue infection of the right heel. Denies trauma. She also had lactic acidosis of 3.0, likely combination type B from CKD and less likely type A since no sign sepsis at this point. Blood cultures negative for 48 hours. X-ray left foot shows early osteomyelitis plantar surface of the calcaneus CT left lower extremity shows osteomyelitis calcaneus, with soft tissue infection adjacent to posterior calcaneus. Cellulitis pattern. CTA as below, left leg circulation shows no blockages. S/p 500 cc NS bolus and CFX x 1. Plan: ? IV Zosyn and vancomycin (03/16-03/17) - Cefepime 1 g daily and Doxy 100 p.o. twice daily (03/18-04/26) per ID Dr. Banuelos - Outpatient IV cefepime 1-2g per dialysis session ? Wound care ? Hemodialysis TTS - Consulted surgeon Dr. Davey, appreciate recommendations: abx per ID, may require BKA at a later time if unable to heal #Bilateral PAD of lower extremities, chronic On exam, lower extremities appeared edematous and warm to touch. Left leg more tender than right. Likely secondary to long history of uncontrolled diabetes and inconsistent medication follow up. Lower extremity duplex shows severe bilateral peripheral obstructive arterial disease, appears to be chronic, similar findings in 08/10/24. CTA abdominal aorta iliofemoral runoff shows multiple significant stenoses involving the mid and distal right posterior tibial artery, no occlusion in the left posterior tibial artery. Plan: - Consider antithrombotic therapy if becomes symptomatic - Good candidate for BKA, higher chances of recovery if BKA required - CTM #Diarrhea, chronic Reports 1 month history of loose stools, 6-7 episodes per day. Denies fevers, nausea, vomiting, hematochezia, melena. Given chronic nature, possibly IBS versus malabsorption versus medication induced. Of note, home medications include loperamide 2 mg prn, reports taking it but without much improvement. Negative for Campylobacter, E coli Shiga tox, Salmonella, Shigella. Plan: - Start cholestyramine 4g daily - Pending stool cultures and calprotectin - Pending Giardia antigen - CTM bowel movements or signs of infection #ESRD on HD TTS Last hemodialysis on Saturday, renal panel appears at baseline. Follows Dr. Yap outpatient. Dialysis sessions: 03/16 (-3.2L), 03/18 (-3.4L) ? [employer] Dr. Yap consulted, appreciate recommendations ? TTS HD schedule #Hx of IDDM A1c 7.1 from 08/2024. Glucose 152 on admission. A1c 7.7 on 03/16. ? INSULIN sliding scale ? Accu-Cheks #HFrEF EF 50-55% (03/17/25) Echo 08/2024: EF 55%. Hypokinetic anterior septal wall motion. RV is mildly dilated with moderately decreased systolic function. Estimated RVSP, 47mmHg. RAP 15. Mild MR. Has bilateral lower extremity edema likely combination HFpEF and ESRD. Echo 03/17 shows EF 50 to 55%, grade 1 diastolic dysfunction and hypokinetic anterior septal wall motion. RV mildly dilated with moderately decreased systolic function. Normal LV size. Mild MR. Moderate TR and mild PI. S/p 500 cc IVF for above-mentioned lactic acidosis. No signs or symptoms of CHF exacerbation. Plan: ? Avoid too much fluid ? Hemodialysis as above Health Maintenance Disposition: management of left foot diabetic ulcer DVT prophylaxis: heparin GI prophylaxis: protonix Bowel: Senna Diet: Carb consistent CODE STATUS: FULL Patient plan of care was discussed with the attending physician, Dr. Rizo. Delmis Lazcano, PGY-1 Attending Provider Attestation/Addendum I attest that I was physically present for the evaluation, physical examination, lab and imaging review of the patient with the residents. I discussed the case with the residents and agree with the findings and plans of care as documented above. At bedside today, patient states he is feeling better and denies new complaints. Continues to have multiple bowel movements, started on colestyramine. CTA iliofemoral runoff shows multiple significant stenosis involving the mid and distal right posterior tibial artery. Discussed with patient regarding BKA, currently denies the procedure and would like to try IV antibiotics. Blood culture have been negative for 48 hours. Will continue with IV cefepime and p.o. Doxy during dialysis as recommended by ID. Awaiting arrangement of IV antibiotics during dialysis. Charles Steele MD
[2025-03-18] MEDS: INSULIN LISPRO (AdmeLOG) 1 UNIT/0.01 ML UNIT SC (20:42)
[2025-03-18] MEDS: HEPARIN SOD INJ 5000 UNIT/ML VIAL SC (20:44)
[2025-03-18] MEDS: DOXYCYCLINE 100 MG TABLET PO (20:46)
[2025-03-19] VITALS: BP 130/72; PULSE 105; PULSE 68; RESP 14; TEMP 36.6; O2SAT 100
[2025-03-19] MEDS: ACETAMINOPHEN 325 MG TABLET 650 MG PO (00:59)
[2025-03-19 04:00] VITALS: BP 123/59; PULSE 59; PULSE 60; RESP 16; TEMP 36.4; O2SAT 96
[2025-03-19 05:50] LABS: Basophils # (Auto) 0.0 Thou/mm3 (0.0-0.2); Basophils % (Auto) 0 % (0-2.5); Eosinophils # (Auto) 0.1 Thou/mm3 (0.0-0.5); Eosinophils % (Auto) 1 % (0-10); Hematocrit 30.9 % (36.0-46.0); Hemoglobin 9.8 g/dL (12.0-16.0); Immature Granulocytes Auto 0.17 Thou/mm3 (0.00-0.00); Lymphocytes # (Auto) 0.9 Thou/mm3 (1.0-4.8); Lymphocytes % (Auto) 7 % (10-50); Mean Corpuscular HGB Conc 31.7 g/dl (31.0-37.0); Mean Corpuscular Hemoglobin 28.6 pg (25.0-35.0); Mean Corpuscular Volume 90 fL (80-100); Monocytes # (Auto) 1.0 Thou/mm3 (0.0-0.8); Monocytes % (Auto) 7 % (0-12); Neutrophils # (Auto) 11.2 Thou/mm3 (1.8-7.7); Neutrophils % (Auto) 83 % (37-80); Nucleated Red Blood Cell # 0.00 Thou/mm3 (0.00-0.00); Nucleated Red Blood Cell % 0 /100 WBC (0); Platelet Count 245 Thou/mm3 (140-440); RDW Standard Deviation 54.1 fL (36.4-46.3); Red Blood Count 3.43 Miln/mm3 (4.00-5.20); White Blood Count 13.4 Thou/mm3 (3.6-11.0)
[2025-03-19 06:00] VITALS: BMI 29.5
[2025-03-19 06:40] LABS: Alanine Aminotransferase < 7 U/L (10-49); Albumin, Serum 2.9 gm/dL (3.5-5.0); Albumin/Globulin Ratio 1.0 (1.2-2.2); Alkaline Phosphatase 81 U/L (46-116); Anion Gap 13 (7-16); Aspartate Amino Transferase 14 U/L (0-34); BUN/Creatinine Ratio 5 Ratio (12-20); Bilirubin,Total 0.9 mg/dL (0.3-1.2); Blood Urea Nitrogen 29 mg/dL (9-23); Calcium 8.2 mg/dL (8.3-10.6); Calcium (Corrected) 9.1 mg/dL (8.5-10.1); Carbon Dioxide 25.4 mMol/L (20.0-31.0); Chloride 98 mMol/L (98-107); Creatinine (Component) 5.6 mg/dL (0.6-1.3); Estimated Creatinine Clearance 10.9 mL/min (>60); Globulin 2.9 gm/dL (2.3-3.5); Glucose 99 mg/dL (74-106); Magnesium 2.1 mg/dL (1.6-2.6); Osmolality,Calculated 277 (275-295); Phosphorous 4.4 mg/dL (2.4-5.1); Potassium 3.9 mMol/L (3.4-5.1); Sodium 136 mMol/L (136-145); Total Protein 5.8 gm/dL (5.7-8.2); eGFR 8 See Note
[2025-03-19 08:00] VITALS: BP 141/73; PULSE 66; RESP 16; TEMP 36.1; O2SAT 96
[2025-03-19] MEDS: HEPARIN SOD INJ 5000 UNIT/ML VIAL SC ×2 (08:42→20:17)
[2025-03-19] MEDS: CHOLESTYRAMINE/SUCROSE 1 PKT EA PO (08:43)
[2025-03-19] MEDS: DOXYCYCLINE 100 MG TABLET PO ×2 (08:43→20:17)
--- NOTE | 2025-03-19 08:43 | ESPR_ITS ---
Documentation for date of: 03/19/25 Subjective Subjective Interval history: 55 y/o F with PMH of HTN, IDDM type II, HFpEF EF 55% on 08/2024, ESRD on HD TTS, presented to the hospital on 03/16/2025 due to worsening chronic BLE wounds, pain, and swelling for last 3 days. Patient complained of pain in both knees and feet, expecially on the left heel which was oozing with blood. Patient received hemodialysis session last saturday. Patient didn't had any recent trauma to any of her lower extremities. Denies chest pain, palpation, SOB, abdominal pain, N/V, fevers, or chills. Patient has been consulted for management of ESRD on HD. 03/16/2025: Labs reviewed and patient examined at the dialysis. Patient complained of worsening discomfort on her feet. Blood was still oozing on her left heel. Cr: 8.8, BUN: 70, eGFR: 5, Hgb: 11.1 MCV: 90. Patient received hemodialysis today. 03/17/2025: Labs reviewed and patient examined at the bedside. Patient noted her pain on both knees has decreased considerably. Patient is continuing to get wound care on her unroofed blisters of left heel. Today, patient had an episode of diarrhea in bed, but did not notify staff. She was observed reaching toward the stool with her fingers. Patient demonstrates limited awareness of personal hygiene and may benefit from close monitoring and assistance with self care. BP: 99/64, Cr:7.3, BUN:44, eGFR:6. Planned for hemodialysis tomorrow. Fluid restrict the patient to <1500ml per day. 03/18/2025: Labs reviewed and patient examined at the dialysis. Patient complained of significant diarrhea. Will continue to monitor her renal function. Patient received hemodialysis today. BP 134/72, Cr: 7.4, BUN: 36, eGFR: 6. 03/19/2025: Patient was seen and evaluated at bedside this morning. Labs were reviewed. No overnight events. Patient's WBC still elevated at 13.4, creatinine 5.6, BUN 29, GFR 8. Patient is declining left foot amputation and would like to try and see if the wound heals. Patient CTA did not show major filling defects on the left lower extremity vessels. Continue with hemodialysis as scheduled. Consider vascular surgery. Exam Vital Signs Temp Pulse Resp BP Pulse Ox O2 Del Method O2 Flow Rate 97.5 F 59 L 16 123/59 L 96 Nasal Cannula 3 03/19/25 04:00 03/19/25 04:00 03/19/25 04:00 03/19/25 04:00 03/19/25 04:00 03/19/25 04:00 03/19/25 04:00 Narrative Exam Gen: A&O X 3, NAD HEENT: NCAT, EOMI, Pupils reactive YNES, not icteric. External ears normal. No rhinorrhea. Moist mucous membranes. Neck: Supple, full range of motion, no observable masses, No meningeal sign. Lungs: No Respiratory distress, clear bilateral. CV: RRR, no murmurs. Abdomen: Soft, nondistended, No rebound tenderness. MSK: No joint swelling, no redness, peripheral pulses presents, LE edema significantly improved, L ankle covered with clean dressing. Skin: No rashes, petechiae, lesions.. Neuro: No focal neurological deficits appreciated, sensory and motor intact. Psych: Cooperative, appropriate mood and effect. Objective Labs 03/20/25 04:20 03/20/25 04:20 Labs: Laboratory Results - last 24 hr 03/17/25 03/18/25 03/19/25 11:18 05:01 04:30 WBC 13.4 H RBC 3.43 L Hgb 9.8 L Hct 30.9 L MCV 90 MCH 28.6 MCHC 31.7 RDW Std Deviation 54.1 H Plt Count 245 D Neut % (Auto) 83 H Lymph % (Auto) 7 L [place] % (Auto) 7 Eos % (Auto) 1 Baso % (Auto) 0 Neut # (Auto) 11.2 H Lymph # (Auto) 0.9 L [place] # (Auto) 1.0 H Eos # (Auto) 0.1 Baso # (Auto) 0.0 Immature Gran # (Auto) 0.17 H Absolute Nucleated RBC 0.00 Immature Gran % 1 H Nucleated RBC % 0 Sodium 136 Potassium 3.9 Chloride 98 Carbon Dioxide 25.4 Anion Gap 13 BUN 29 H Creatinine 5.6 H* D Estim Creat Clear Calc 10.9 L eGFR 8 L* BUN/Creatinine Ratio 5 L Glucose 99 Calculated Osmolality 277 Calcium 8.2 L Corrected Calcium 9.1 Phosphorus 4.4 Magnesium 2.1 Total Bilirubin 0.9 AST 14 ALT < 7 L Alkaline Phosphatase 81 Total Protein 5.8 Albumin 2.9 L Globulin 2.9 Albumin/Globulin Ratio 1.0 L Stool Campylobacter PCR Negative Stl E.coli Shiga Tox PCR Negative Stool Salmonella PCR Negative Stool Shigella PCR Negative HIV 1&2 Antibody Rapid Non-Reactive Quality Measures Quality Measures none Assessment & Plan Assessment Current Active Medications: Generic Name Dose Route Start Last Admin Trade Name Freq PRN Reason Stop Dose Admin Acetaminophen 650 mg 03/16/25 05:43 03/19/25 00:59 Acetaminophen 325 Mg Tablet PO 04/15/25 05:42 650 mg Q6H PRN Administration PAIN SCALE 1-3 (mild Acetaminophen 650 mg 03/16/25 05:43 03/16/25 16:39 Acetaminophen 325 Mg Tablet PO 04/15/25 05:42 650 mg Q6H PRN Administration Fever >100.4 Hydrocodone Bitart/Acetaminophen 1 tab 03/16/25 05:43 Hydrocodone/Apap 10/325 Tab PO 03/21/25 05:42 Q4HR PRN PAIN SCALE 7-10 (Severe Cholestyramine Resin 1 pkt 03/18/25 09:00 03/18/25 09:00 Cholestyramine/Sucrose 1 Pkt Ea PO 04/17/25 08:59 Not Given QDAY [facility] Dextrose 25 ml 03/16/25 07:31 Dextrose 50%-Water Inj 50 Ml Syringe IV 04/15/25 07:30 Q15MIN PRN BG 50-70 responsive npo pt Dextrose 50 ml 03/16/25 07:31 Dextrose 50%-Water Inj 50 Ml Syringe IV 04/15/25 07:30 Q15MIN PRN BG <50 OR BG <70 & pt unresponsive Doxycycline Hyclate 100 mg 03/17/25 21:00 03/18/25 20:46 Doxycycline 100 Mg Tablet PO 03/24/25 20:59 100 mg BID LIU Administration Glucagon 1 mg 03/16/25 07:31 Glucagon Inj 1 Mg Vial IM Q15MIN PRN BG <70, and no IV access Heparin Sodium (Porcine) 5,000 unit 03/16/25 09:00 03/18/25 20:44 Heparin Sod Inj 5000 Unit/Ml Vial SC 03/30/25 08:59 5,000 unit BID LIU Administration Albumin Human 25 gm in 100 mls @ 100 mls/min 03/16/25 07:48 03/16/25 10:45 Albuminar-25 Ivpb IV 100 mls/min PRN PRN Administration DIALYSIS Cefepime HCl 1 gm/ Sodium 50 mls @ 100 mls/hr 03/17/25 21:00 03/17/25 20:36 Chloride IV 04/26/25 12:00 100 mls/hr Q48HR@2100 [facility] Administration Insulin Human Lispro 0 unit 03/16/25 11:30 03/19/25 07:35 Insulin Lispro (Admelog) 1 Unit/0.01 Ml Unit SC 04/15/25 11:29 Not Given ACHS [facility] Protocol Ondansetron HCl 4 mg 03/16/25 05:43 Ondansetron Inj 2 Mg/Ml Inj 2 Ml IVP 04/15/25 05:42 Q6H PRN NAUSEA OR VOMITING Protocol Oxycodone/Acetaminophen 1 tab 03/16/25 05:43 Oxycodone/Apap 5/325 Tablet PO 03/21/25 05:42 Q6H PRN PAIN SCALE 4-6 (Moderate Plan 55-year-old female with PMHx of HTN, IDDM type II, HFpEF EF 55% on 08/2024, ESRD on HD TTS, presenting with right heel pain. Patient has been consulted to nephrology for managment of ESRD on HD #ESRD on hemodialysis. #Anemia of Chronic Kidney disease -On admission: Cr: 8.8, BUN: 70, eGFR: 5, Hgb: 11.1 MCV: 90 -The patient's hemodialysis session is Saturday, , and Saturday. -Currently, creatinine 5.6, GFR 8, BUN 29 -Hemodialysis sessions: 03/16, 03/18 Plan: ?Continue hemodialysis as scheduled -Monitor renal function -Maintain fluid restriction, avoid nephrotoxic agents when possible, renally dose medications -Strict i and o Other diseases: #Lactic Acidosis Type A vs. B #left heel decubitus ulcer--surgical evaluation done. Patient with severe PVD. Might need a BKA. #IDDM #HFrEF EF 55% 08/2024 -Management per Primary Hospitalist team Thank you for allowing us to participate in the care of your patient. Case disclosed with Attending Dr. Marely Ro PGY2 Disclaimer: Even though this this note was dictated by speech recognition and even though it was carefully revised there may still be minor errors in clerical adjuster due to voice recognition software. Attending Provider Attestation/Addendum Patient seen and examined with resident physician Dr. Schaeffer. Note reviewed, agree with findings and recommendations. Left message for Dr. Arevalo. Left heel decubitus. CTA showed circulation present. Patient absolutely refuses left BKA. Dr Banuelos on the case. Spoke to primary team. Dialysis in a.m.
--- NOTE | 2025-03-19 08:54 | ESPR_ITS ---
Subjective Subjective Interval history: no change in recs. labs noted. wbc falling. stool cx cancelled. Exam Vital Signs Temp Pulse Resp BP Pulse Ox O2 Del Method O2 Flow Rate 97.0 F 66 16 141/73 H 96 Nasal Cannula 3 03/19/25 08:00 03/19/25 08:00 03/19/25 08:00 03/19/25 08:00 03/19/25 08:00 03/19/25 08:00 03/19/25 08:00 Narrative Exam limited eval Objective - Internal Medicine Labs 03/19/25 04:30 03/19/25 04:30 Labs: Laboratory Results - last 24 hr 03/17/25 03/18/25 03/19/25 11:18 05:01 04:30 WBC 13.4 H RBC 3.43 L Hgb 9.8 L Hct 30.9 L MCV 90 MCH 28.6 MCHC 31.7 RDW Std Deviation 54.1 H Plt Count 245 D Neut % (Auto) 83 H Lymph % (Auto) 7 L [place] % (Auto) 7 Eos % (Auto) 1 Baso % (Auto) 0 Neut # (Auto) 11.2 H Lymph # (Auto) 0.9 L [place] # (Auto) 1.0 H Eos # (Auto) 0.1 Baso # (Auto) 0.0 Immature Gran # (Auto) 0.17 H Absolute Nucleated RBC 0.00 Immature Gran % 1 H Nucleated RBC % 0 Sodium 136 Potassium 3.9 Chloride 98 Carbon Dioxide 25.4 Anion Gap 13 BUN 29 H Creatinine 5.6 H* D Estim Creat Clear Calc 10.9 L eGFR 8 L* BUN/Creatinine Ratio 5 L Glucose 99 Calculated Osmolality 277 Calcium 8.2 L Corrected Calcium 9.1 Phosphorus 4.4 Magnesium 2.1 Total Bilirubin 0.9 AST 14 ALT < 7 L Alkaline Phosphatase 81 Total Protein 5.8 Albumin 2.9 L Globulin 2.9 Albumin/Globulin Ratio 1.0 L Stool Campylobacter PCR Negative Stl E.coli Shiga Tox PCR Negative Stool Salmonella PCR Negative Stool Shigella PCR Negative HIV 1&2 Antibody Rapid Non-Reactive Assessment & Plan A&P Narrative early osteo L heel by imaging diarrhea, cause pending cx no hx cirrhosis ckd5 on hd thru L arm fistula if bc from admit neg at 48h ok for fortaz or cefepime, which ever the hd location has available 1-2 gm with each hd rx and doxy 100 po bid thru 04/26/. will see again prn, no need for outpt ID f/u. see primary and renal team. Time Spent With Patient Time: Total time spent is greater than 50% in coordination of care (as documented) at patient's floor/unit and/or counseling patient:
[2025-03-19 12:00] VITALS: BP 147/69; PULSE 70; PULSE 76; RESP 17; TEMP 36.3; O2SAT 100
--- NOTE | 2025-03-19 14:20 | ESCONSULT_ITS ---
<Statement entered by Surjit Barclay MD - 03/27/25 14:22> I personally examined evaluated the patient for cardiac clearance based on today's clinical assessment patient can proceed with the angiogram if necessary but will require further workup the patient has had extensive vascular surgery. Eval the patient with resident physician PGY 2 Dr. Yoder agree with treatment plan recommendation documented HPI Data of Consult Consult date: 03/19/25 Requesting Physician: Charles Steele MD Admitting Provider: Brigid Carey MD Attending Provider: Surjit Barclay MD Primary Care Provider: Miguel Yodre MD Consult Narrative Reason for consult: Cardiac Clearance History of present illness: 55-year-old female with past medical history of hypertension, diabetes type 2, heart failure preserved ejection fraction [55%], end-stage renal disease on hemodialysis who presented to the ED with right heel pain. Patient started having symptoms around 3 days ago with progressive pain around the right heel. Patient was later found with osteomyelitis of the right heel with lactic acidosis. Patient refused amputation of the extremity. CTA was done for possible vascular evaluation which showed stenosis of the right posterior tibial artery primary team consulted vascular surgery who recommended cardiac clearance for possible vascular intervention. Denies chest pain, palpation, SOB, abdominal pain, N/V, fevers, or chills. Cardiology was consulted for cardiac clearance for possible vascular intervention. ED course: Vitals on arrival BP 150/71, HR 90, saturating close to 90% on room air. Labs significant for some leukocytosis and mild anemia and lactic acid about 3 CRP 15.6 and Pro-[place] 13.7, ESR 124. PMHx: As above SX Hx: Cataract surgery and kidney stones Social Hx: Denies cigarette use, denies alcohol use, denies illicit substances including THC FH X: Unknown Cardiology consulted for cardiac clearance for possible surgical intervention. cc:: cc: Charles Steele MD Review of Systems Review of Systems Systems Reviewed: All systems reviewed, normal except as documented Exam Vital Signs Temp Pulse Resp BP Pulse Ox O2 Del Method O2 Flow Rate 97.0 F 66 16 141/73 H 96 Nasal Cannula 3 03/19/25 08:00 03/19/25 08:00 03/19/25 08:00 03/19/25 08:00 03/19/25 08:00 03/19/25 08:00 03/19/25 08:00 Narrative Exam Physical Exam GENERAL: NAD, AAOx3 HEENT: Moist mucosa. Eyes open, symmetrical, & clear CARDIO: Heart RRR, no obvious murmurs PULM: No noted coughing/dyspnea CTA B/L, no R/W/R GI: Abdomen soft, nondistended, no pain on palpation. BSx4 SKIN/MSK/EXT: Grayish discoloration of lower extremities no pain on palpation. Multiple healed ulcerations on bilateral legs and right hip. Wrinkling skin on bilateral calves NEURO: AAOx3, no focal neuro deficits, able to move all 4 extremities Results Labs 03/19/25 04:30 03/19/25 04:30 Labs: Short CBC 03/19/25 Range/Units 04:30 WBC 13.4 H (3.6-11.0) Thou/mm3 Hgb 9.8 L (12.0-16.0) g/dL Hct 30.9 L (36.0-46.0) % Plt Count 245 D (140-440) Thou/mm3 BMP 03/19/25 04:30 Sodium 136 Potassium 3.9 Chloride 98 Carbon Dioxide 25.4 BUN 29 H Creatinine 5.6 H* D Glucose 99 Calcium 8.2 L Liver Function 03/19/25 Range/Units 04:30 Total Bilirubin 0.9 (0.3-1.2) mg/dL AST 14 (0-34) U/L ALT < 7 L (10-49) U/L Alkaline Phosphatase 81 (46-116) U/L Albumin 2.9 L (3.5-5.0) gm/dL Quality Measures Quality Measures none Medications Home Medications and Allergies Allergies Allergy/AdvReac Type Severity Reaction Status Date / Time No Known Allergies Allergy Verified 03/16/25 00:43 Visit Medications Acetaminophen (Acetaminophen 325 Mg Tablet) 650 mg PO Q6H PRN PRN Reason: PAIN SCALE 1-3 (mild Stop: 04/15/25 05:42 Last Admin: 03/19/25 00:59 Dose: 650 mg Acetaminophen (Acetaminophen 325 Mg Tablet) 650 mg PO Q6H PRN PRN Reason: Fever >100.4 Stop: 04/15/25 05:42 Last Admin: 03/16/25 16:39 Dose: 650 mg Hydrocodone Bitart/Acetaminophen (Hydrocodone/Apap 10/325 Tab) 1 tab PO Q4HR PRN PRN Reason: PAIN SCALE 7-10 (Severe Stop: 03/21/25 05:42 Atorvastatin Calcium (Atorvastatin Calcium 20 Mg Tablet) 40 mg PO HS [facility] Stop: 04/18/25 20:59 Cholestyramine Resin (Cholestyramine/Sucrose 1 Pkt Ea) 1 pkt PO QDAY [facility] Stop: 04/17/25 08:59 Last Admin: 03/19/25 08:43 Dose: 1 pkt Dextrose (Dextrose 50%-Water Inj 50 Ml Syringe) 25 ml IV Q15MIN PRN PRN Reason: BG 50-70 responsive npo pt Stop: 04/15/25 07:30 Dextrose (Dextrose 50%-Water Inj 50 Ml Syringe) 50 ml IV Q15MIN PRN PRN Reason: BG <50 OR BG <70 & pt unresponsive Stop: 04/15/25 07:30 Doxycycline Hyclate (Doxycycline 100 Mg Tablet) 100 mg PO BID [facility] Stop: 03/24/25 20:59 Last Admin: 03/19/25 08:43 Dose: 100 mg Glucagon (Glucagon Inj 1 Mg Vial) 1 mg IM Q15MIN PRN PRN Reason: BG <70, and no IV access Heparin Sodium (Porcine) (Heparin Sod Inj 5000 Unit/Ml Vial) 5,000 unit SC BID [facility] Stop: 03/30/25 08:59 Last Admin: 03/19/25 08:42 Dose: 5,000 unit Albumin Human (Albuminar-25 Ivpb) 25 gm in 100 mls @ 100 mls/min IV PRN PRN PRN Reason: DIALYSIS Last Admin: 03/16/25 10:45 Dose: 100 mls/min Cefepime HCl 1 gm/ Sodium (Chloride) 50 mls @ 100 mls/hr IV Q48HR@2100 [facility] Stop: 04/26/25 12:00 Last Admin: 03/17/25 20:36 Dose: 100 mls/hr Insulin Human Lispro (Insulin Lispro (Admelog) 1 Unit/0.01 Ml Unit) 0 unit SC ACHS [facility]; Protocol Stop: 04/15/25 11:29 Last Admin: 03/19/25 14:11 Dose: Not Given Ondansetron HCl (Ondansetron Inj 2 Mg/Ml Inj 2 Ml) 4 mg IVP Q6H PRN; Protocol PRN Reason: NAUSEA OR VOMITING Stop: 04/15/25 05:42 Oxycodone/Acetaminophen (Oxycodone/Apap 5/325 Tablet) 1 tab PO Q6H PRN PRN Reason: PAIN SCALE 4-6 (Moderate Stop: 03/21/25 05:42 Discontinued Medications Heparin Sodium (Porcine) (Heparin Sod Inj 5000 Unit/Ml Vial) 5,000 unit SC BID [facility] Stop: 03/30/25 08:59 Ceftriaxone Sodium/Dextrose (Rocephin/D5w 1gm Iv Premix) 1 g in 50 mls @ 100 mls/hr IV QDAY [facility] Stop: 03/23/25 06:06 Last Admin: 03/16/25 06:28 Dose: Not Given Doxycycline Hyclate 100 mg/ (Sodium Chloride) 100 mls @ 100 mls/hr IV BID [facility] Stop: 03/23/25 06:05 Last Infusion: 03/16/25 06:58 Dose: 0 mls/hr Lactated Ringer's (Lactated Ringers) 500 mls @ 999 mls/hr IV .Q31M ONE Stop: 03/16/25 06:13 Last Infusion: 03/16/25 06:23 Dose: Infused Piperacillin Sod/Tazobactam (Sod 2.25 gm/ Sodium Chloride) 100 mls @ 200 mls/hr IV Q12HR [facility] Stop: 03/23/25 06:59 Last Admin: 03/16/25 08:45 Dose: 200 mls/hr Clindamycin/Sodium Chloride (Cleocin/Ns Ivpb) 600 mg in 50 mls @ 100 mls/hr IV Q8HR [facility] Stop: 03/23/25 06:59 Last Infusion: 03/16/25 07:54 Dose: Infused Piperacillin Sod/Tazobactam (Sod 4.5 gm/ Sodium Chloride) 100 mls @ 25 mls/hr IV Q12HR [facility] Stop: 03/23/25 20:59 Last Admin: 03/17/25 09:34 Dose: 25 mls/hr Vancomycin/Sodium Chloride (Vancomycin/Ns 1 Gm Ivpb) 200 mls @ 120 mls/hr IV X1 ONE Stop: 03/16/25 16:39 Last Admin: 03/16/25 14:04 Dose: 120 mls/hr Vancomycin/Sodium Chloride (Vancomycin/Ns 500 Mg Ivpb) 100 mls @ 120 mls/hr IV X1 ONE Stop: 03/17/25 10:49 Last Admin: 03/17/25 11:03 Dose: 120 mls/hr Ceftriaxone Sodium/Dextrose (Rocephin/D5w 2gm) 2 gm in 50 mls @ 100 mls/hr IV QDAY [facility]U Stop: 03/24/25 13:16 Last Admin: 03/17/25 13:33 Dose: Not Given Cefepime HCl 2 gm/ Sodium (Chloride) 50 mls @ 100 mls/hr IV Q12HR [facility] Stop: 03/24/25 13:19 Last Admin: 03/17/25 13:32 Dose: Not Given Loperamide HCl (Loperamide 2 Mg Capsule) 4 mg PO X1 ONE Stop: 03/18/25 08:13 Last Admin: 03/18/25 09:26 Dose: 4 mg Pantoprazole Sodium (Pantoprazole Inj 40 Mg Vial) 40 mg IVP QDAY [facility] Stop: 04/15/25 08:59 Last Admin: 03/16/25 15:57 Dose: Not Given Pantoprazole Sodium (Pantoprazole Inj 40 Mg Vial) 40 mg IVP QDAY [facility] Stop: 04/15/25 08:59 Last Admin: 03/17/25 09:40 Dose: 40 mg Pharmacy Consult (Vancomycin Pharmacy To Dose 1 Each Each) 1 each IV QDAY PRN PRN Reason: CONSULT Stop: 04/15/25 08:59 Assessment & Plan Plan 55-year-old female with past medical history of hypertension, diabetes type 2, heart failure preserved ejection fraction [55%], end-stage renal disease on hemodialysis who presented to the ED with right heel pain. Patient started having symptoms around 3 days ago with progressive pain around the right heel. Patient was later found with osteomyelitis of the right heel with lactic acidosis. Patient denied amputation of the extremity. CTA was done for possible vascular evaluation which showed stenosis of the right posterior tibial artery primary team consulted vascular surgery who recommended cardiac clearance for possible vascular intervention. Cardiology was consulted for cardiac clearance for possible vascular intervention. #Cardiac Clearance Echo:Normal left ventricular size.Hypokinietic anterior septal wall motion. Grade I diastolic dysfunction. Approximate ejection fraction is 50-55%. The right ventricle is mildly dilated with moderately decreased systolic function.RVSP 47mmHg. RAP 15 Mild mitral regurgitation. Mildly decreased mobility of the anterior mitral valve leaflet. Moderate TR and mild PI. Dilated IVC measuring 2.4cm Revised cardiac risk index: CHF, diabetes, and ESRD: 3; 10% risk of major cardiac event if low risk procedure such as angiogram. If Vascular intervention such as bypass will require further cardiac work up. - Cleared from cardiology standpoint to have vascular angiogram #ESRD on hemodialysis. #Anemia of Chronic Kidney disease #Lactic Acidosis Type A vs. B #left heel decubitus ulcer--surgical evaluation done. Patient with severe PVD. Might need a BKA. #IDDM #HFrEF EF 55% 08/2024 Case discussed with my attending Dr. Deny Yoder MD PGY-2 Disclaimer: Despite multiple revisions, due to the dictation software being used, the document bellow may not be free of grammatical errors including phonetic/typographic errors. However, this does not deter from our commitment to providing health care in the patient's best interest in mind.
--- NOTE | 2025-03-19 15:14 | PD.RESPRO ---
Documentation for date of: 03/19/25 Subjective Subjective Interval history: Had 3 bowel movements overnight, but improved from before. Will continue cholestyramine and loperamide as needed. Still pending stool calprotectin and Giardia, enteric bacterial panel negative. Denies abdominal pain, hematochezia or melena. Consulted vascular surgeon Dr. Arevalo regarding peripheral artery disease, was open to conducting procedure but unclear if patient will need to transfer to another facility. Although CTA shows more stenosis of right posterior tibial artery compared to left, discussed with bead flipper Dr. Yap that patient would benefit stent placement for wound healing purposes. Discussed the above as well as its risks and benefits of the procedure with the patient. After some thought and discussion with her , she was agreeable. Consulted clinical dental technician Dr. Barclay for cardiac clearance. Consulted physical therapy for possible SNF placement. Patient reports that she has good support at home, lives with and son who she enjoys cooking for. Reports decreased sleep for the past couple months (unable to specify why, denies anxiety) but denies any thoughts of self-harm or suicide ideation. Is not interested in depression medications at this time. Otherwise WBC improving, will continue current antibiotic regimen. Plan for hemodialysis tomorrow. Exam Vital Signs Temp Pulse Resp BP Pulse Ox O2 Del Method O2 Flow Rate 97.0 F 66 16 141/73 H 96 Nasal Cannula 3 03/19/25 08:00 03/19/25 08:00 03/19/25 08:00 03/19/25 08:00 03/19/25 08:00 03/19/25 08:00 03/19/25 08:00 Narrative Exam Physical Exam General: Awake and in no acute distress. Appears discouraged, mildly depressed. Appears older that actual age. HEENT: Normocephalic, atraumatic, mucous membranes moist. Heart: Regular rate and rhythm, normal S1 and S2, no murmurs. Lungs: Clear to auscultation with no wheezing or crackles. Abdomen: Soft, nondistended, nontender, positive bowel sounds. No guarding or rebound tenderness. Neurologic: Alert and oriented x3, no gross neurological deficit, and patient able to move all 4 extremities. Extremities: Left heel wound, well dressed with minimal drainage. Dressing clean dry and intact. Multiple healed ulcerations on bilateral legs and right hip. Wrinkling skin on bilateral calves, no edema bilaterally. Skin: No rash or ecchymoses. Objective Labs 03/20/25 04:20 03/20/25 04:20 Labs: Laboratory Results - last 24 hr 03/19/25 04:30 WBC 13.4 H RBC 3.43 L Hgb 9.8 L Hct 30.9 L MCV 90 MCH 28.6 MCHC 31.7 RDW Std Deviation 54.1 H Plt Count 245 D Neut % (Auto) 83 H Lymph % (Auto) 7 L [place]cher % (Auto) 7 Eos % (Auto) 1 Baso % (Auto) 0 Neut # (Auto) 11.2 H Lymph # (Auto) 0.9 L [place] # (Auto) 1.0 H Eos # (Auto) 0.1 Baso # (Auto) 0.0 Immature Gran # (Auto) 0.17 H Absolute Nucleated RBC 0.00 Immature Gran % 1 H Nucleated RBC % 0 Sodium 136 Potassium 3.9 Chloride 98 Carbon Dioxide 25.4 Anion Gap 13 BUN 29 H Creatinine 5.6 H* D Estim Creat Clear Calc 10.9 L eGFR 8 L* BUN/Creatinine Ratio 5 L Glucose 99 Calculated Osmolality 277 Calcium 8.2 L Corrected Calcium 9.1 Phosphorus 4.4 Magnesium 2.1 Total Bilirubin 0.9 AST 14 ALT < 7 L Alkaline Phosphatase 81 Total Protein 5.8 Albumin 2.9 L Globulin 2.9 Albumin/Globulin Ratio 1.0 L Quality Measures Quality Measures none Assessment & Plan Assessment Current Active Medications: Generic Name Dose Route Start Last Admin Trade Name Freq PRN Reason Stop Dose Admin Acetaminophen 650 mg 03/16/25 05:43 03/19/25 00:59 Acetaminophen 325 Mg Tablet PO 04/15/25 05:42 650 mg Q6H PRN Administration PAIN SCALE 1-3 (mild Acetaminophen 650 mg 03/16/25 05:43 03/16/25 16:39 Acetaminophen 325 Mg Tablet PO 04/15/25 05:42 650 mg Q6H PRN Administration Fever >100.4 Hydrocodone Bitart/Acetaminophen 1 tab 03/16/25 05:43 Hydrocodone/Apap 10/325 Tab PO 03/21/25 05:42 Q4HR PRN PAIN SCALE 7-10 (Severe Atorvastatin Calcium 40 mg 03/19/25 21:00 Atorvastatin Calcium 20 Mg Tablet PO 04/18/25 20:59 HS LIU Cholestyramine Resin 1 pkt 03/18/25 09:00 03/19/25 08:43 Cholestyramine/Sucrose 1 Pkt Ea PO 04/17/25 08:59 1 pkt QDAY LIU Administration Dextrose 25 ml 03/16/25 07:31 Dextrose 50%-Water Inj 50 Ml Syringe IV 04/15/25 07:30 Q15MIN PRN BG 50-70 responsive npo pt Dextrose 50 ml 03/16/25 07:31 Dextrose 50%-Water Inj 50 Ml Syringe IV 04/15/25 07:30 Q15MIN PRN BG <50 OR BG <70 & pt unresponsive Doxycycline Hyclate 100 mg 03/17/25 21:00 03/19/25 08:43 Doxycycline 100 Mg Tablet PO 03/24/25 20:59 100 mg BID LIU Administration Glucagon 1 mg 03/16/25 07:31 Glucagon Inj 1 Mg Vial IM Q15MIN PRN BG <70, and no IV access Heparin Sodium (Porcine) 5,000 unit 03/16/25 09:00 03/19/25 08:42 Heparin Sod Inj 5000 Unit/Ml Vial SC 03/30/25 08:59 5,000 unit BID LIU Administration Albumin Human 25 gm in 100 mls @ 100 mls/min 03/16/25 07:48 03/16/25 10:45 Albuminar-25 Ivpb IV 100 mls/min PRN PRN Administration DIALYSIS Cefepime HCl 1 gm/ Sodium 50 mls @ 100 mls/hr 03/17/25 21:00 03/17/25 20:36 Chloride IV 04/26/25 12:00 100 mls/hr Q48HR@2100 LIU Administration Insulin Human Lispro 0 unit 03/16/25 11:30 03/19/25 14:11 Insulin Lispro (Admelog) 1 Unit/0.01 Ml Unit SC 04/15/25 11:29 Not Given ACHS LIU Protocol Ondansetron HCl 4 mg 03/16/25 05:43 Ondansetron Inj 2 Mg/Ml Inj 2 Ml IVP 04/15/25 05:42 Q6H PRN NAUSEA OR VOMITING Protocol Oxycodone/Acetaminophen 1 tab 03/16/25 05:43 Oxycodone/Apap 5/325 Tablet PO 03/21/25 05:42 Q6H PRN PAIN SCALE 4-6 (Moderate Plan Patient is a 55-year-old female with PMHx of HTN, IDDM type II, HFpEF EF 55%, ESRD on HD TTS, who presented on 03/15 for left heel pain, admitted for osteomyelitits of left leg. #Osteomyelitis of left heel #Lactic Acidosis, resolved Presenting with right heel pain, with findings of soft tissue infection of the right heel. Denies trauma. She also had lactic acidosis of 3.0, likely combination type B from CKD and less likely type A since no sign sepsis at this point. Blood cultures negative for 48 hours. X-ray left foot shows early osteomyelitis plantar surface of the calcaneus CT left lower extremity shows osteomyelitis calcaneus, with soft tissue infection adjacent to posterior calcaneus. Cellulitis pattern. CTA as below, left leg circulation shows no blockages. S/p 500 cc NS bolus and CFX x 1. Plan: ? IV Zosyn and vancomycin (03/16-03/17) - Cefepime 1 g daily and Doxy 100 p.o. twice daily (03/18-04/26) per ID Dr. Banuelos - Outpatient IV cefepime 1-2g per dialysis session ? Wound care ? Hemodialysis TTS - Consulted surgeon Dr. Davey, appreciate recommendations: abx per ID, may require BKA at a later time if unable to heal #Bilateral PAD of lower extremities, chronic On exam, lower extremities appeared edematous and warm to touch. Left leg more tender than right. Likely secondary to long history of uncontrolled diabetes and inconsistent medication follow up. Lower extremity duplex shows severe bilateral peripheral obstructive arterial disease, appears to be chronic, similar findings in 08/10/24. CTA abdominal aorta iliofemoral runoff shows multiple significant stenoses involving the mid and distal right posterior tibial artery, no occlusion in the left posterior tibial artery. Patient will greatly benefit from stent placement given poor blood circulation to extremities, will likely improve chances of wound healing in addition to hyperbaric oxygen chamber. Explained to patient her circumstance and discussed risks and benefits of procedure, which patient was eventually agreeable to. Plan: - Consulted vascular surgeon Dr. Arevalo, appreciate recommendations: agreeable to procedure, will determine time and place - Consulted clinical dental technician Dr. Barclay for cardiac clearance - CTM #Diarrhea, chronic Reports 1 month history of loose stools, 6-7 episodes per day. Denies fevers, nausea, vomiting, hematochezia, melena. Given chronic nature, possibly IBS versus malabsorption versus medication induced. Of note, home medications include loperamide 2 mg prn, reports taking it but without much improvement. Negative for Campylobacter, E coli Shiga tox, Salmonella, Shigella. Continue as stool calprotectin and Giardia were negative back in August 2024. Plan: - Cholestyramine 4g daily - Loperamide 2 mg prn - Pending stool cultures and calprotectin - Pending Giardia antigen - CTM bowel movements or signs of infection #ESRD on HD TTS Last hemodialysis on Saturday, renal panel appears at baseline. Follows Dr. Yap outpatient. Dialysis sessions: 03/16 (-3.2L), 03/18 (-3.4L) ? Residue Furnace Operator Dr. Yap consulted, appreciate recommendations ? TTS HD schedule #Hx of IDDM A1c 7.1 from 08/2024. Glucose 152 on admission. A1c 7.7 on 03/16. ? INSULIN sliding scale ? Accu-Cheks #HFrEF EF 50-55% (03/17/25) Echo 08/2024: EF 55%. Hypokinetic anterior septal wall motion. RV is mildly dilated with moderately decreased systolic function. Estimated RVSP, 47mmHg. RAP 15. Mild MR. Has bilateral lower extremity edema likely combination HFpEF and ESRD. Echo 03/17 shows EF 50 to 55%, grade 1 diastolic dysfunction and hypokinetic anterior septal wall motion. RV mildly dilated with moderately decreased systolic function. Normal LV size. Mild MR. Moderate TR and mild PI. S/p 500 cc IVF for above-mentioned lactic acidosis. No signs or symptoms of CHF exacerbation. Plan: ? Avoid too much fluid ? Hemodialysis as above #Depression Endorses more frequent days of fatigue and trouble falling asleep over the past 2 weeks however reports she still enjoys cooking for her family and is eating well. Denies thoughts of self-harm. Patient appeared to be very discouraged during this admission, likely secondary to discussions of possible amputation and vascular surgery procedure. Per above, patient likely has mild to moderate depression. Plan: - Was not interested in starting therapy/counseling or medication for mood management at this time Health Maintenance Disposition: management of left foot diabetic ulcer DVT prophylaxis: heparin GI prophylaxis: protonix Bowel: Senna Diet: Carb consistent CODE STATUS: FULL Patient plan of care was discussed with the attending physician, Dr. Rizo. Delmis Lazcano, PGY-1 Attending Provider Attestation/Addendum I attest that I was physically present for the evaluation, physical examination, lab and imaging review of the patient with the residents. I discussed the case with the residents and agree with the findings and plans of care as documented above. At bedside today, patient states he is feeling well and denies any new complaints.? WBC count has been downtrending.? Continues to be on antibiotics during dialysis and oral Doxy.? We will obtain physical therapy.? Discussed with Dr. Yap, patient has been not very compliant with her medication and hemodialysis sessions, with ongoing peripheral artery disease and diabetes, might have hard time with wound healing so might be unsafe for her to discharge home and have outpatient follow-up.? We will attempt to reach out to vascular surgery for evaluation of need for vascular procedure.? Started on statin, we will hold off on aspirin until able to talk with vascular surgery. Charles Steele MD
[2025-03-19 16:00] VITALS: BP 130/80; PULSE 69; PULSE 78; RESP 20; TEMP 36.1; O2SAT 95
[2025-03-19] MEDS: INSULIN LISPRO (AdmeLOG) 1 UNIT/0.01 ML UNIT SC (17:08)
[2025-03-19 17:24] VITALS: BMI 13.0
--- NOTE | 2025-03-19 17:55 | PC.PT ---
Patient is safe to ambulate to the bathroom with a FWW using toe touch weight bearing (TTWB) and 1 staff for safety. RN made aware.
[2025-03-19 20:00] VITALS: BP 125/62; PULSE 68; PULSE 73; RESP 14; TEMP 36.7; O2SAT 100
[2025-03-19] MEDS: ATORVASTATIN CALCIUM 20 MG TABLET 40 MG PO (20:17)
[2025-03-19] MEDS: CEFEPIME INJ 1 GM in SODIUM CHLORIDE 0.9% (Popper) 50 ML IV (20:17)
[2025-03-19] MEDS: MELATONIN 3 MG TABLET PO (22:38)
[2025-03-20] VITALS (28 sets, daily range): BP systolic 124–160; BP diastolic 59–81; PULSE 61–98; RESP 11–17; TEMP 36.1–36.6; O2SAT 94–100
[2025-03-20 05:39] LABS: Basophils # (Auto) 0.1 Thou/mm3 (0.0-0.2); Basophils % (Auto) 0 % (0-2.5); Eosinophils # (Auto) 0.1 Thou/mm3 (0.0-0.5); Eosinophils % (Auto) 1 % (0-10); Hematocrit 31.9 % (36.0-46.0); Hemoglobin 10.3 g/dL (12.0-16.0); Immature Granulocytes Auto 0.18 Thou/mm3 (0.00-0.00); Lymphocytes # (Auto) 1.0 Thou/mm3 (1.0-4.8); Lymphocytes % (Auto) 6 % (10-50); Mean Corpuscular HGB Conc 32.3 g/dl (31.0-37.0); Mean Corpuscular Hemoglobin 29.6 pg (25.0-35.0); Mean Corpuscular Volume 92 fL (80-100); Monocytes # (Auto) 0.9 Thou/mm3 (0.0-0.8); Monocytes % (Auto) 5 % (0-12); Neutrophils # (Auto) 13.9 Thou/mm3 (1.8-7.7); Neutrophils % (Auto) 86 % (37-80); Nucleated Red Blood Cell # 0.00 Thou/mm3 (0.00-0.00); Nucleated Red Blood Cell % 0 /100 WBC (0); Platelet Count 242 Thou/mm3 (140-440); RDW Standard Deviation 56.1 fL (36.4-46.3); Red Blood Count 3.48 Miln/mm3 (4.00-5.20); White Blood Count 16.1 Thou/mm3 (3.6-11.0)
[2025-03-20 06:40] LABS: Albumin, Serum 3.0 gm/dL (3.5-5.0); Albumin/Globulin Ratio 1.1 (1.2-2.2); Alkaline Phosphatase 86 U/L (46-116); Anion Gap 14 (7-16); Aspartate Amino Transferase 27 U/L (0-34); BUN/Creatinine Ratio 7 Ratio (12-20); Bilirubin,Total 0.9 mg/dL (0.3-1.2); Blood Urea Nitrogen 46 mg/dL (9-23); Calcium 7.6 mg/dL (8.3-10.6); Calcium (Corrected) 8.4 mg/dL (8.5-10.1); Carbon Dioxide 24.3 mMol/L (20.0-31.0); Chloride 97 mMol/L (98-107); Creatinine (Component) 6.6 mg/dL (0.6-1.3); Estimated Creatinine Clearance 9.3 mL/min (>60); Globulin 2.8 gm/dL (2.3-3.5); Glucose 68 mg/dL (74-106); Magnesium 2.2 mg/dL (1.6-2.6); Osmolality,Calculated 280 (275-295); Phosphorous 5.1 mg/dL (2.4-5.1); Potassium 5.6 mMol/L (3.4-5.1); Sodium 135 mMol/L (136-145); Total Protein 5.8 gm/dL (5.7-8.2); eGFR 7 See Note
[2025-03-20 06:57] LABS: Alanine Aminotransferase 8 U/L (10-49)
--- NOTE | 2025-03-20 07:44 | PC.NURSE ---
@6011 Patient to dialysis via bed, alert and oriented in stable condition.
--- NOTE | 2025-03-20 10:55 | PD.NEPHPROG ---
Documentation for date of: 03/20/25 Subjective Subjective Interval history: Ms. Aguilar is a 55 y/o F with PMH of HTN, IDDM type II, HFpEF EF 55% on 08/2024, ESRD on HD TTS, presented to the hospital on 03/16/2025 due to worsening chronic BLE wounds, pain, and swelling for last 3 days. Patient complained of pain in both knees and feet, expecially on the left heel which was oozing with blood. Patient received hemodialysis session last saturday. Patient didn't had any recent trauma to any of her lower extremities. Denies chest pain, palpation, SOB, abdominal pain, N/V, fevers, or chills. Patient has been consulted for management of ESRD on HD. 03/16/2025: Labs reviewed and patient examined at the dialysis. Patient complained of worsening discomfort on her feet. Blood was still oozing on her left heel. Cr: 8.8, BUN: 70, eGFR: 5, Hgb: 11.1 MCV: 90. Patient received hemodialysis today. 03/17/2025: Labs reviewed and patient examined at the bedside. Patient noted her pain on both knees has decreased considerably. Patient is continuing to get wound care on her unroofed blisters of left heel. Today, patient had an episode of diarrhea in bed, but did not notify staff. She was observed reaching toward the stool with her fingers. Patient demonstrates limited awareness of personal hygiene and may benefit from close monitoring and assistance with self care. BP: 99/64, Cr:7.3, BUN:44, eGFR:6. Planned for hemodialysis tomorrow. Fluid restrict the patient to <1500ml per day. 03/18/2025: Labs reviewed and patient examined at the dialysis. Patient complained of significant diarrhea. Will continue to monitor her renal function. Patient received hemodialysis today. BP 134/72, Cr: 7.4, BUN: 36, eGFR: 6. 03/19/2025: Patient was seen and evaluated at bedside this morning. Labs were reviewed. No overnight events. Patient's WBC still elevated at 13.4, creatinine 5.6, BUN 29, GFR 8. Patient is declining left foot amputation and would like to try and see if the wound heals. Patient CTA did not show major filling defects on the left lower extremity vessels. Continue with hemodialysis as scheduled. Consider vascular surgery. 03/20/2025 patient currently seen in dialysis. On antibiotics for the left heel wound decubitus ulcer. CTA showed adequate circulation of the left lower extremity. Spoke to Dr. Arevalo-will see patient in next Saturday. Conveyed the same to primary team. Patient declines and left BKA. Seen by Dr. Davey Currently on antibiotics per Dr. Banuelos. Review of Systems Review of Systems Narrative Review of Systems: CONSTITUTIONAL: Patient denies any fever, chills. HEENT: Denies any visual disturbances or hearing problems. CARDIOVASCULAR: Patient denies any chest pain, shortness of breath, swelling in the lower extremities. PULMONARY: Patient denies any shortness of breath, cough. GASTROINTESTINAL: Patient denies any abdominal pain, constipation, nausea, vomiting, diarrhea. GENITOURINARY: Patient denies any urinary symptoms of burning or frequency or hematuria, denies any form in the urine. SKIN: Wound in the left heel MUSCULOSKELETAL: Gait imbalance NEUROLOGICAL: Denies any neurological problems of strokes, seizures or confusion. Denies any memory problems. PSYCHIATRIC: Admits some depression Exam Vital Signs Temp Pulse Resp BP Pulse Ox O2 Del Method O2 Flow Rate 36.1 C 73 14 159/68 H 99 Nasal Cannula 3.5 03/20/25 08:00 03/20/25 10:47 03/20/25 08:00 03/20/25 10:47 03/20/25 08:00 03/20/25 08:00 03/20/25 08:00 Narrative Exam GENERAL APPEARANCE: Patient seems to be comfortable, adequately hydrated and nourished. HEENT: EOMI, PERRLA NECK: Neck supple, no JVD or bruit CARDIOVASCULAR: Heart regular, no murmurs LUNGS/CHEST: Chest clear to auscultation. No rales, rhonchi, wheezing ABDOMEN: Soft, nontender, nondistended. No masses. Normal bowel sounds. EXTREMITIES: No edema, clubbing or cyanosis. SKIN: Significant stasis dermatitis noted. Left heel wrapped MUSCULOSKELETAL: In bed PSYCHIATRIC: Normal mood, Neurologically alert and awake LYMPHATICS: No lymphadenopathy noted Objective Labs 03/20/25 04:20 03/20/25 04:20 Labs: Laboratory Results - last 24 hr 03/20/25 04:20 WBC 16.1 H RBC 3.48 L Hgb 10.3 L Hct 31.9 L MCV 92 MCH 29.6 MCHC 32.3 RDW Std Deviation 56.1 H Plt Count 242 Neut % (Auto) 86 H Lymph % (Auto) 6 L [place] % (Auto) 5 Eos % (Auto) 1 Baso % (Auto) 0 Neut # (Auto) 13.9 H Lymph # (Auto) 1.0 [place] # (Auto) 0.9 H Eos # (Auto) 0.1 Baso # (Auto) 0.1 Immature Gran # (Auto) 0.18 H Absolute Nucleated RBC 0.00 Immature Gran % 1 H Nucleated RBC % 0 Sodium 135 L Potassium 5.6 H D Chloride 97 L Carbon Dioxide 24.3 Anion Gap 14 BUN 46 H Creatinine 6.6 H* D Estim Creat Clear Calc 9.3 L eGFR 7 L* BUN/Creatinine Ratio 7 L Glucose 68 L Calculated Osmolality 280 Calcium 7.6 L Corrected Calcium 8.4 L Phosphorus 5.1 Magnesium 2.2 Total Bilirubin 0.9 AST 27 ALT 8 L Alkaline Phosphatase 86 Total Protein 5.8 Albumin 3.0 L Globulin 2.8 Albumin/Globulin Ratio 1.1 L Assessment & Plan Additional Assessment & Plan Additional Plan: 55-year-old female with PMHx of HTN, IDDM type II, HFpEF EF 55% on 08/2024, ESRD on HD TTS, presenting with right heel pain. Patient has been consulted to nephrology for managment of ESRD on HD #ESRD on hemodialysis. #Anemia of Chronic Kidney disease -On admission: Cr: 8.8, BUN: 70, eGFR: 5, Hgb: 11.1 MCV: 90 -The patient's hemodialysis session is Saturday, , and Saturday. -Currently, creatinine 5.6, GFR 8, BUN 29 -Hemodialysis sessions: 03/16, 03/18 Plan: patient currently seen on dialysis. Tolerating dialysis without any problems. Hemodialysis for 3 hours, 2K, ultrafiltration 2-3 L, Epogen 6000, no heparin ordered. Plan of care discussed with the dialysis nurse. Please see dialysis flowsheet for further details. -Monitor renal function -Maintain fluid restriction, avoid nephrotoxic agents when possible, renally dose medications -Strict i and o Other diseases: #Lactic Acidosis Type A vs. B #left heel decubitus ulcer--surgical evaluation done. Patient with PVD. Spoke to primary team-role for Pletal. Spoke to Dr. Arevalo-will see her next Saturday. #IDDM #HFrEF EF 55% 08/2024 -Management per Primary Hospitalist team
--- NOTE | 2025-03-20 11:50 | PC.NURSE ---
Patient back from dialysis, alert and oriented, stable condition.
[2025-03-20] MEDS: CHOLESTYRAMINE/SUCROSE 1 PKT EA PO (12:01)
--- NOTE | 2025-03-20 12:12 | ESPR_ITS ---
Documentation for date of: 03/20/25 Subjective Subjective Interval history: No acute events overnight. Consulted vascular surgeon Dr. Arevalo who is willing to do procedure, will see patient on 03/23. Patient is clear from cardiac standpoint for procedure. Hemodialysis this morning, removed 3 L. Continue wound care and antibiotics for left heel ulcer. PT recommended SNF for discharge. Son was at bedside. Patient felt very discouraged today but understood her circumstance and was agreeable to plan. No new complaints at this time. Exam Vital Signs Temp Pulse Resp BP Pulse Ox O2 Del Method O2 Flow Rate 97.8 F 74 14 146/76 H 99 Nasal Cannula 2 03/20/25 11:28 03/20/25 11:28 03/20/25 11:28 03/20/25 11:28 03/20/25 11:03/20/25 08:00 03/20/25 11:28 Narrative Exam Physical Exam General: Awake and in no acute distress. Appears discouraged, mildly depressed. Appears older that actual age. HEENT: Normocephalic, atraumatic, mucous membranes moist. Heart: Regular rate and rhythm, normal S1 and S2, no murmurs. Lungs: Clear to auscultation with no wheezing or crackles. Abdomen: Soft, nondistended, nontender, positive bowel sounds. No guarding or rebound tenderness. Neurologic: Alert and oriented x3, no gross neurological deficit, and patient able to move all 4 extremities. Extremities: Left heel wound, well dressed with minimal drainage. Dressing clean dry and intact. Multiple healed ulcerations on bilateral legs and right hip. Wrinkling skin on bilateral calves, no edema bilaterally. Skin: No rash or ecchymoses. Objective Labs 03/20/25 04:20 03/20/25 04:20 Labs: Laboratory Results - last 24 hr 03/20/25 04:20 WBC 16.1 H RBC 3.48 L Hgb 10.3 L Hct 31.9 L MCV 92 MCH 29.6 MCHC 32.3 RDW Std Deviation 56.1 H Plt Count 242 Neut % (Auto) 86 H Lymph % (Auto) 6 L [place] % (Auto) 5 Eos % (Auto) 1 Baso % (Auto) 0 Neut # (Auto) 13.9 H Lymph # (Auto) 1.0 [place] # (Auto) 0.9 H Eos # (Auto) 0.1 Baso # (Auto) 0.1 Immature Gran # (Auto) 0.18 H Absolute Nucleated RBC 0.00 Immature Gran % 1 H Nucleated RBC % 0 Sodium 135 L Potassium 5.6 H D Chloride 97 L Carbon Dioxide 24.3 Anion Gap 14 BUN 46 H Creatinine 6.6 H* D Estim Creat Clear Calc 9.3 L eGFR 7 L* BUN/Creatinine Ratio 7 L Glucose 68 L Calculated Osmolality 280 Calcium 7.6 L Corrected Calcium 8.4 L Phosphorus 5.1 Magnesium 2.2 Total Bilirubin 0.9 AST 27 ALT 8 L Alkaline Phosphatase 86 Total Protein 5.8 Albumin 3.0 L Globulin 2.8 Albumin/Globulin Ratio 1.1 L Quality Measures Quality Measures none Assessment & Plan Assessment Current Active Medications: Generic Name Dose Route Start Last Admin Trade Name Freq PRN Reason Stop Dose Admin Acetaminophen 650 mg 03/16/25 05:43 03/19/25 00:59 Acetaminophen 325 Mg Tablet PO 04/15/25 05:42 650 mg Q6H PRN Administration PAIN SCALE 1-3 (mild Acetaminophen 650 mg 03/16/25 05:43 03/16/25 16:39 Acetaminophen 325 Mg Tablet PO 04/15/25 05:42 650 mg Q6H PRN Administration Fever >100.4 Hydrocodone Bitart/Acetaminophen 1 tab 03/16/25 05:43 Hydrocodone/Apap 10/325 Tab PO 03/21/25 05:42 Q4HR PRN PAIN SCALE 7-10 (Severe Atorvastatin Calcium 40 mg 03/19/25 21:00 03/19/25 20:17 Atorvastatin Calcium 20 Mg Tablet PO 04/18/25 20:59 40 mg HS LIU Administration Cholestyramine Resin 1 pkt 03/18/25 09:00 03/20/25 12:01 Cholestyramine/Sucrose 1 Pkt Ea PO 04/17/25 08:59 1 pkt QDAY LIU Administration Dextrose 25 ml 03/16/25 07:31 Dextrose 50%-Water Inj 50 Ml Syringe IV 04/15/25 07:30 Q15MIN PRN BG 50-70 responsive npo pt Dextrose 50 ml 03/16/25 07:31 Dextrose 50%-Water Inj 50 Ml Syringe IV 04/15/25 07:30 Q15MIN PRN BG <50 OR BG <70 & pt unresponsive Doxycycline Hyclate 100 mg 03/17/25 21:00 03/20/25 09:23 Doxycycline 100 Mg Tablet PO 03/24/25 20:59 Not Given BID LIU Glucagon 1 mg 03/16/25 07:31 Glucagon Inj 1 Mg Vial IM Q15MIN PRN BG <70, and no IV access Heparin Sodium (Porcine) 5,000 unit 03/16/25 09:00 03/20/25 09:23 Heparin Sod Inj 5000 Unit/Ml Vial SC 03/30/25 08:59 Not Given BID LIU Albumin Human 25 gm in 100 mls @ 100 mls/min 03/16/25 07:48 03/16/25 10:45 Albuminar-25 Ivpb IV 100 mls/min PRN PRN Administration DIALYSIS Cefepime HCl 1 gm/ Sodium 50 mls @ 100 mls/hr 03/17/25 21:00 03/19/25 20:17 Chloride IV 04/26/25 12:00 100 mls/hr Q48HR@2100 LIU Administration Insulin Human Lispro 0 unit 03/16/25 11:30 03/20/25 11:50 Insulin Lispro (Admelog) 1 Unit/0.01 Ml Unit SC 04/15/25 11:29 Not Given ACHS LIU Protocol Ondansetron HCl 4 mg 03/16/25 05:43 Ondansetron Inj 2 Mg/Ml Inj 2 Ml IVP 04/15/25 05:42 Q6H PRN NAUSEA OR VOMITING Protocol Oxycodone/Acetaminophen 1 tab 03/16/25 05:43 Oxycodone/Apap 5/325 Tablet PO 03/21/25 05:42 Q6H PRN PAIN SCALE 4-6 (Moderate Plan Patient is a 55-year-old female with PMHx of HTN, IDDM type II, HFpEF EF 55%, ESRD on HD TTS, who presented on 03/15 for left heel pain, admitted for osteomyelitits of left leg secondary to left heel ulcer. #Osteomyelitis of left heel #Left heel ulcer #Lactic Acidosis, resolved Presenting with right heel pain, with findings of soft tissue infection of the right heel. Denies trauma. She also had lactic acidosis of 3.0, likely combination type B from CKD and less likely type A since no sign sepsis at this point. Blood cultures negative for 48 hours. X-ray left foot shows early osteomyelitis plantar surface of the calcaneus CT left lower extremity shows osteomyelitis calcaneus, with soft tissue infection adjacent to posterior calcaneus. Cellulitis pattern. CTA as below, left leg circulation shows no blockages. S/p 500 cc NS bolus and CFX x 1. S/p IV Zosyn and vancomycin (03/16-03/17) Plan: - Cefepime 1 g every other day and Doxy 100 p.o. twice daily (03/18-04/26) per ID Dr. Banuelos - Outpatient IV cefepime 1-2g per dialysis session ? Wound care ? Hemodialysis TTS - Consulted surgeon Dr. Davey, appreciate recommendations: abx per ID, may require BKA at a later time if unable to heal - Consider hyperbaric oxygen chamber outpatient #Bilateral PAD of lower extremities, chronic On exam, lower extremities appeared edematous and warm to touch. Left leg more tender than right. Likely secondary to long history of uncontrolled diabetes and inconsistent medication follow up. Lower extremity duplex shows severe bilateral peripheral obstructive arterial disease, appears to be chronic, similar findings in 08/10/24. CTA abdominal aorta iliofemoral runoff shows multiple significant stenoses involving the mid and distal right posterior tibial artery, no occlusion in the left posterior tibial artery. Patient will greatly benefit from stent placement given poor blood circulation to extremities, will likely improve chances of wound healing in addition to hyperbaric oxygen chamber. Explained to patient her circumstance and discussed risks and benefits of procedure, which patient was eventually agreeable to. Plan: - Consulted vascular surgeon Dr. Arevalo, appreciate recommendations: agreeable to procedure but will not be able to see her until 03/23 - Consulted mobile product manager Dr. Barclay: Cleared from cardiology standpoint to have vascular angiogram - CTM pulses and healing ulcers #Diarrhea, chronic Reports 1 month history of loose stools, 6-7 episodes per day. Denies fevers, nausea, vomiting, hematochezia, melena. Given chronic nature, possibly IBS versus malabsorption versus medication induced. Of note, home medications include loperamide 2 mg prn, reports taking it but without much improvement. Negative for Campylobacter, E coli Shiga tox, Salmonella, Shigella. Continue as stool calprotectin and Giardia were negative back in August 2024. Plan: - Cholestyramine 4g daily - Loperamide 2 mg prn - Pending stool cultures and calprotectin - Pending Giardia antigen - CTM bowel movements or signs of infection #ESRD on HD TTS Last hemodialysis on Saturday, renal panel appears at baseline. Follows Dr. Yap outpatient. Dialysis sessions: 03/16 (-3.2L), 03/18 (-3.4L), 03/20 (-3.0 L) ? [employer] Dr. Yap consulted, appreciate recommendations ? TTS HD schedule #Hx of IDDM A1c 7.1 from 08/2024. Glucose 152 on admission. A1c 7.7 on 03/16. ? INSULIN sliding scale ? Accu-Cheks #HFrEF EF 50-55% (03/17/25) Echo 08/2024: EF 55%. Hypokinetic anterior septal wall motion. RV is mildly dilated with moderately decreased systolic function. Estimated RVSP, 47mmHg. RAP 15. Mild MR. Has bilateral lower extremity edema likely combination HFpEF and ESRD. Echo 03/17 shows EF 50 to 55%, grade 1 diastolic dysfunction and hypokinetic anterior septal wall motion. RV mildly dilated with moderately decreased systolic function. Normal LV size. Mild MR. Moderate TR and mild PI. S/p 500 cc IVF for above-mentioned lactic acidosis. No signs or symptoms of CHF exacerbation. Plan: ? Avoid too much fluid ? Hemodialysis as above #Depression Endorses more frequent days of fatigue and trouble falling asleep over the past 2 weeks however reports she still enjoys cooking for her family and is eating well. Denies thoughts of self-harm. Patient appeared to be very discouraged during this admission, likely secondary to discussions of possible amputation and vascular surgery procedure. Per above, patient likely has mild to moderate depression. Plan: - Was not interested in starting therapy/counseling or medication for mood management at this time Health Maintenance Disposition: management of left foot diabetic ulcer DVT prophylaxis: heparin GI prophylaxis: protonix Bowel: Senna Diet: Carb consistent CODE STATUS: FULL Patient plan of care was discussed with the attending physician, Dr. Rizo. Delmis Lazcano, PGY-1 Attending Provider Attestation/Addendum I attest that I was physically present for the evaluation, physical examination, lab and imaging review of the patient with the residents. I discussed the case with the residents and agree with the findings and plans of care as documented above. At bedside today, patient appears comfortable and denies any new complaints. Discussed with vascular surgery, will evaluate the patient on for possible vascular procedure. Patient is cleared for vascular procedure from cardiology standpoint. Continues to be on IV antibiotics and oral doxycycline. We will continue with wound care. Charles Steele MD
--- NOTE | 2025-03-20 15:52 | PC.NURSE ---
Removed pressure dressing to ARMINDA AV fistula.
[2025-03-20] MEDS: LOPERAMIDE 2 MG CAPSULE PO (17:06)
[2025-03-20] MEDS: HEPARIN SOD INJ 5000 UNIT/ML VIAL SC (20:06)
[2025-03-20] MEDS: DOXYCYCLINE 100 MG TABLET PO (20:07)
[2025-03-20] MEDS: ATORVASTATIN CALCIUM 20 MG TABLET 40 MG PO (20:07)
[2025-03-21] VITALS (9 sets, daily range): BP systolic 134–157; BP diastolic 64–75; PULSE 72–94; RESP 14–21; TEMP 36.3–36.9; O2SAT 99–100
[2025-03-21 05:38] LABS: Basophils # (Auto) 0.0 Thou/mm3 (0.0-0.2); Basophils % (Auto) 0 % (0-2.5); Eosinophils # (Auto) 0.1 Thou/mm3 (0.0-0.5); Eosinophils % (Auto) 1 % (0-10); Hematocrit 30.1 % (36.0-46.0); Hemoglobin 9.6 g/dL (12.0-16.0); Immature Granulocytes Auto 0.18 Thou/mm3 (0.00-0.00); Lymphocytes # (Auto) 0.9 Thou/mm3 (1.0-4.8); Lymphocytes % (Auto) 5 % (10-50); Mean Corpuscular HGB Conc 31.9 g/dl (31.0-37.0); Mean Corpuscular Hemoglobin 29.0 pg (25.0-35.0); Mean Corpuscular Volume 91 fL (80-100); Monocytes # (Auto) 0.9 Thou/mm3 (0.0-0.8); Monocytes % (Auto) 5 % (0-12); Neutrophils # (Auto) 14.9 Thou/mm3 (1.8-7.7); Neutrophils % (Auto) 88 % (37-80); Nucleated Red Blood Cell # 0.00 Thou/mm3 (0.00-0.00); Nucleated Red Blood Cell % 0 /100 WBC (0); Platelet Count 269 Thou/mm3 (140-440); RDW Standard Deviation 55.4 fL (36.4-46.3); Red Blood Count 3.31 Miln/mm3 (4.00-5.20); White Blood Count 16.9 Thou/mm3 (3.6-11.0)
[2025-03-21 06:49] LABS: Alanine Aminotransferase < 7 U/L (10-49); Albumin, Serum 3.1 gm/dL (3.5-5.0); Albumin/Globulin Ratio 1.0 (1.2-2.2); Alkaline Phosphatase 95 U/L (46-116); Anion Gap 13 (7-16); Aspartate Amino Transferase 15 U/L (0-34); BUN/Creatinine Ratio 7 Ratio (12-20); Bilirubin,Total 1.0 mg/dL (0.3-1.2); Blood Urea Nitrogen 29 mg/dL (9-23); Calcium 8.3 mg/dL (8.3-10.6); Calcium (Corrected) 9.0 mg/dL (8.5-10.1); Carbon Dioxide 26.1 mMol/L (20.0-31.0); Chloride 97 mMol/L (98-107); Creatinine (Component) 4.4 mg/dL (0.6-1.3); Estimated Creatinine Clearance 13.7 mL/min (>60); Globulin 3.1 gm/dL (2.3-3.5); Glucose 116 mg/dL (74-106); Magnesium 2.1 mg/dL (1.6-2.6); Osmolality,Calculated 278 (275-295); Phosphorous 3.9 mg/dL (2.4-5.1); Potassium 3.6 mMol/L (3.4-5.1); Sodium 136 mMol/L (136-145); Total Protein 6.2 gm/dL (5.7-8.2); eGFR 11 See Note
--- NOTE | 2025-03-21 07:50 | PD.RESPRO ---
Documentation for date of: 03/21/25 Subjective Subjective Interval history: 55 y/o F with PMH of HTN, IDDM type II, HFpEF EF 55% on 08/2024, ESRD on HD TTS, presented to the hospital on 03/16/2025 due to worsening chronic BLE wounds, pain, and swelling for last 3 days. Patient complained of pain in both knees and feet, expecially on the left heel which was oozing with blood. Patient received hemodialysis session last saturday. Patient didn't had any recent trauma to any of her lower extremities. Denies chest pain, palpation, SOB, abdominal pain, N/V, fevers, or chills. Patient has been consulted for management of ESRD on HD ED course: Afebrile, HR 90, BP 158/71, satting upper 90s on room air. Negative COVID, influenza A/B. WBC 16.6, Hgb 11.1 (baseline 9.6), PLT 244. Normal coag panel. CHEM panel significant for sodium 133 around baseline, lactic acid 3.0, CRP 15.6, PRO-FRANCISCO 13.76, ESR 124. Renal function around baseline with CR 8.8, GFR 5, BUN 70, potassium of 3.5. She has anion gap of 18, likely CKD/uremia/lactic acidosis. UA negative for UTI. Preliminary right foot x-ray showed skin and soft tissue infection with possible necrosis (pending final read) Medical history: As stated above Surgical history: Surgery for cataract and kidney stones. Allergies: NKDA Medications: Pending official med rec Family history: Noncontributory Social history: Denies smoking cigarettes, drinking alcohol or using other illicit drugs ROS: All 12 systems assessed and the patient denies unless otherwise stated in HPI 03/16/2025: Labs reviewed and patient examined at the dialysis. Patient complained of worsening discomfort on her feet. Blood was still oozing on her left heel. Cr: 8.8, BUN: 70, eGFR: 5, Hgb: 11.1 MCV: 90. Patient received hemodialysis today. 03/17/2025: Labs reviewed and patient examined at the bedside. Patient noted her pain on both knees has decreased considerably. Patient is continuing to get wound care on her unroofed blisters of left heel. Today, patient had an episode of diarrhea in bed, but did not notify staff. She was observed reaching toward the stool with her fingers. Patient demonstrates limited awareness of personal hygiene and may benefit from close monitoring and assistance with self care. BP: 99/64, Cr:7.3, BUN:44, eGFR:6. Planned for hemodialysis tomorrow. Fluid restrict the patient to <1500ml per day. 03/18/2025: Labs reviewed and patient examined at the dialysis. Patient complained of significant diarrhea. Will continue to monitor her renal function. Patient received hemodialysis today. BP 134/72, Cr: 7.4, BUN: 36, eGFR: 6. 03/19/2025: Patient was seen and evaluated at bedside this morning. Labs were reviewed. No overnight events. Patient's WBC still elevated at 13.4, creatinine 5.6, BUN 29, GFR 8. Patient is declining left foot amputation and would like to try and see if the wound heals. Patient CTA did not show major filling defects on the left lower extremity vessels. Continue with hemodialysis as scheduled. Consider vascular surgery. 03/20/2025: patient currently seen in dialysis. On antibiotics for the left heel wound decubitus ulcer. CTA showed adequate circulation of the left lower extremity. Spoke to Dr. Arevalo-will see patient in next Saturday. Conveyed the same to primary team. Patient declines and left BKA. Seen by Dr. Davey Currently on antibiotics per Dr. Banuelos. 03/21/2025: Labs reviewed and patient examined at the bedside. Patient currently has no other complaints. Cr:4.4, BUN:29, eGFR:11. Pateint will continue on antibiotics. Hemodialysis session planned for next saturday. Exam Vital Signs Temp Pulse Resp BP Pulse Ox O2 Del Method O2 Flow Rate 98.5 F 94 16 157/75 H 100 Nasal Cannula 2 03/21/25 04:00 03/21/25 04:00 03/21/25 04:00 03/21/25 04:00 03/21/25 04:00 03/21/25 04:00 03/21/25 04:00 Narrative Exam General: No acute distress, well nourished, AAO x3 Eye: PERRL, EOMI, normal conjunctiva, no scleral icterus HENT: Normocephalic, atraumatic, hearing intact to conversation at normal volume, moist oral mucosa Neck: Supple, non-tender, no JVD, no lymphadenopathy Lungs: Non-labored respirations, symmetric chest rise, Clear to auscultate bilaterally, No wheezing, rhonchi, crackles Heart: Peripheral pulses intact bilaterally, Regular Rate and Rhythm. Abdomen: Soft, non-tender, non-distended, no palpable masses Musculoskeletal: Normal range of motion and strength,No visible joint swelling, +1 pitting edema BLE. Skin: Multiple abrasions in bilateral knees and feet. Tendor on palpation. Wound on left heel covered with sterile gauze bandage. Psychiatric: Cooperative, appropriate mood and affect, Awake and alert, not agitated Neuro: Cranial nerves II-XII grossly intact. Sensations intact to light touch. Objective Labs 03/22/25 04:15 03/22/25 04:15 Labs: Laboratory Results - last 24 hr 03/21/25 04:17 WBC 16.9 H RBC 3.31 L Hgb 9.6 L Hct 30.1 L MCV 91 MCH 29.0 MCHC 31.9 RDW Std Deviation 55.4 H Plt Count 269 Neut % (Auto) 88 H Lymph % (Auto) 5 L [place] % (Auto) 5 Eos % (Auto) 1 Baso % (Auto) 0 Neut # (Auto) 14.9 H Lymph # (Auto) 0.9 L [place] # (Auto) 0.9 H Eos # (Auto) 0.1 Baso # (Auto) 0.0 Immature Gran # (Auto) 0.18 H Absolute Nucleated RBC 0.00 Immature Gran % 1 H Nucleated RBC % 0 Sodium 136 Potassium 3.6 D Chloride 97 L Carbon Dioxide 26.1 Anion Gap 13 BUN 29 H Creatinine 4.4 H* D Estim Creat Clear Calc 13.7 L eGFR 11 L* BUN/Creatinine Ratio 7 L Glucose 116 H D Calculated Osmolality 278 Calcium 8.3 Corrected Calcium 9.0 Phosphorus 3.9 Magnesium 2.1 Total Bilirubin 1.0 AST 15 ALT < 7 L Alkaline Phosphatase 95 Total Protein 6.2 Albumin 3.1 L Globulin 3.1 Albumin/Globulin Ratio 1.0 L Quality Measures Quality Measures none Assessment & Plan Assessment Current Active Medications: Generic Name Dose Route Start Last Admin Trade Name Freq PRN Reason Stop Dose Admin Acetaminophen 650 mg 03/16/25 05:43 03/19/25 00:59 Acetaminophen 325 Mg Tablet PO 04/15/25 05:42 650 mg Q6H PRN Administration PAIN SCALE 1-3 (mild Acetaminophen 650 mg 03/16/25 05:43 03/16/25 16:39 Acetaminophen 325 Mg Tablet PO 04/15/25 05:42 650 mg Q6H PRN Administration Fever >100.4 Atorvastatin Calcium 40 mg 03/19/25 21:00 03/20/25 20:07 Atorvastatin Calcium 20 Mg Tablet PO 04/18/25 20:59 40 mg HS LIU Administration Cholestyramine Resin 1 pkt 03/18/25 09:00 03/20/25 12:01 Cholestyramine/Sucrose 1 Pkt Ea PO 04/17/25 08:59 1 pkt QDAY LIU Administration Dextrose 25 ml 03/16/25 07:31 Dextrose 50%-Water Inj 50 Ml Syringe IV 04/15/25 07:30 Q15MIN PRN BG 50-70 responsive npo pt Dextrose 50 ml 03/16/25 07:31 Dextrose 50%-Water Inj 50 Ml Syringe IV 04/15/25 07:30 Q15MIN PRN BG <50 OR BG <70 & pt unresponsive Doxycycline Hyclate 100 mg 03/17/25 21:00 03/20/25 20:07 Doxycycline 100 Mg Tablet PO 03/24/25 20:59 100 mg BID LIU Administration Glucagon 1 mg 03/16/25 07:31 Glucagon Inj 1 Mg Vial IM Q15MIN PRN BG <70, and no IV access Heparin Sodium (Porcine) 5,000 unit 03/16/25 09:00 03/20/25 20:06 Heparin Sod Inj 5000 Unit/Ml Vial SC 03/30/25 08:59 5,000 unit BID LIU Administration Albumin Human 25 gm in 100 mls @ 100 mls/min 03/16/25 07:48 03/16/25 10:45 Albuminar-25 Ivpb IV 100 mls/min PRN PRN Administration DIALYSIS Cefepime HCl 1 gm/ Sodium 50 mls @ 100 mls/hr 03/17/25 21:00 03/19/25 20:17 Chloride IV 04/26/25 12:00 100 mls/hr Q48HR@2100 LIU Administration Insulin Human Lispro 0 unit 03/16/25 11:30 03/21/25 07:31 Insulin Lispro (Admelog) 1 Unit/0.01 Ml Unit SC 04/15/25 11:29 Not Given ACHS LIU Protocol Loperamide HCl 2 mg 03/20/25 15:56 03/20/25 17:06 Loperamide 2 Mg Capsule PO 03/27/25 15:55 2 mg Q6HR PRN Administration DIARRHEA Melatonin 3 mg 03/20/25 17:54 Melatonin 3 Mg Tablet PO 04/19/25 20:59 HS PRN insomnia Ondansetron HCl 4 mg 03/16/25 05:43 Ondansetron Inj 2 Mg/Ml Inj 2 Ml IVP 04/15/25 05:42 Q6H PRN NAUSEA OR VOMITING Protocol Plan 55-year-old female with PMHx of HTN, IDDM type II, HFpEF EF 55% on 08/2024, ESRD on HD TTS, presenting with right heel pain. Patient has been consulted to nephrology for managment of ESRD on HD #ESRD on hemodialysis. #Anemia of Chronic Kidney disease -On admission: Cr: 8.8, BUN: 70, eGFR: 5, Hgb: 11.1 MCV: 90 -The patient's hemodialysis session is Saturday, , and Saturday. -Currently, Cr:4.4, BUN:29, eGFR:11. -Hemodialysis sessions: 03/16, 03/18, 03/20 Plan: -Monitor renal function -Maintain fluid restriction, avoid nephrotoxic agents when possible, renally dose medications -Strict i and o -Planned for hemodialysis session next saturday. #Lactic Acidosis Type A vs. B #left heel decubitus ulcer--surgical evaluation done. Patient with severe PVD. Might need a BKA. #IDDM #HFrEF EF 55% 08/2024 -Management per Primary Hospitalist team Thank you for allowing us to participate in the care of your patient. Assessment and plan discussed with my attending physician Dr. Marely Melchor (PGY-1)- Internal medicine resident Attending Provider Attestation/Addendum Patient seen and examined with resident physician Dr. Melchor. Note reviewed, agree with findings and recommendations. Next dialysis scheduled for Saturday
[2025-03-21] MEDS: CHOLESTYRAMINE/SUCROSE 1 PKT EA PO (08:33)
[2025-03-21] MEDS: DOXYCYCLINE 100 MG TABLET PO ×2 (08:33→20:29)
[2025-03-21] MEDS: HEPARIN SOD INJ 5000 UNIT/ML VIAL SC ×2 (08:34→20:31)
[2025-03-21] MEDS: LOSARTAN POTASSIUM 25 MG TABLET 50 MG PO (08:35)
[2025-03-21 08:36] LABS: Sed Rate (ESR) 107 mm/hr (0-30)
[2025-03-21 08:59] LABS: C-Reactive Protein 8.4 mg/dL (0.0-0.9)
[2025-03-21] MEDS: CEFEPIME INJ 1 GM in SODIUM CHLORIDE 0.9% (Popper) 50 ML IV (11:59)
[2025-03-21] MEDS: INSULIN LISPRO (AdmeLOG) 1 UNIT/0.01 ML UNIT SC ×2 (11:59→17:30)
[2025-03-21] MEDS: ASPIRIN EC 81 MG TABEC PO (13:31)
--- NOTE | 2025-03-21 14:16 | PC.SS ---
Rounding note: Vascular surgeon recommendations pending for 03/23. Discharge plan: HOME.
[2025-03-21] MEDS: LOPERAMIDE 2 MG CAPSULE PO (14:42)
--- NOTE | 2025-03-21 17:28 | ESPR_ITS ---
Documentation for date of: 03/21/25 Subjective Subjective Interval history: no acute overnight events. Denies any other complaints and reported that the pain is well-controlled at the site of osteomyelitis. Vitals are stable. Patient is pending hemodialysis tomorrow. Noted to have mildly elevated WBC count. Contacted pharmacy and as patient is getting doses before the dialysis, likely getting dialyzed with and not having good plasma concentration which likely led to the elevated WBC. So antibiotics dosage is adjusted and will be given after the dialysis sessions. Still pending vascular surgeon consultation. Aspirin is started. Once vascular surgeon gives recommendations, will discharge patient Exam Vital Signs Temp Pulse Resp BP Pulse Ox O2 Del Method O2 Flow Rate 97.9 F 79 16 134/71 H 99 Nasal Cannula 2.5 03/21/25 16:00 03/21/25 16:00 03/21/25 16:00 03/21/25 16:00 03/21/25 16:00 03/21/25 16:00 03/21/25 16:00 Narrative Exam Physical Exam General: Awake and in no acute distress. Appears mildly depressed. Appears older that actual age. HEENT: Normocephalic, atraumatic, mucous membranes moist. Heart: Regular rate and rhythm, normal S1 and S2, no murmurs. Lungs: Clear to auscultation with no wheezing or crackles. Abdomen: Soft, nondistended, nontender, positive bowel sounds. No guarding or rebound tenderness. Neurologic: Alert and oriented x3, no gross neurological deficit, and patient able to move all 4 extremities. Extremities: Left heel wound, well dressed with minimal drainage. Dressing clean dry and intact. Multiple healed ulcerations on bilateral legs and right hip. Wrinkling skin on bilateral calves, no edema bilaterally. Skin: No rash or ecchymoses. Objective Labs 03/22/25 04:15 03/22/25 04:15 Labs: Laboratory Results - last 24 hr 03/21/25 04:17 WBC 16.9 H RBC 3.31 L Hgb 9.6 L Hct 30.1 L MCV 91 MCH 29.0 MCHC 31.9 RDW Std Deviation 55.4 H Plt Count 269 Neut % (Auto) 88 H Lymph % (Auto) 5 L [place] % (Auto) 5 Eos % (Auto) 1 Baso % (Auto) 0 Neut # (Auto) 14.9 H Lymph # (Auto) 0.9 L [place] # (Auto) 0.9 H Eos # (Auto) 0.1 Baso # (Auto) 0.0 Immature Gran # (Auto) 0.18 H Absolute Nucleated RBC 0.00 Immature Gran % 1 H Nucleated RBC % 0 ESR 107 H Sodium 136 Potassium 3.6 D Chloride 97 L Carbon Dioxide 26.1 Anion Gap 13 BUN 29 H Creatinine 4.4 H* D Estim Creat Clear Calc 13.7 L eGFR 11 L* BUN/Creatinine Ratio 7 L Glucose 116 H D Calculated Osmolality 278 Calcium 8.3 Corrected Calcium 9.0 Phosphorus 3.9 Magnesium 2.1 Total Bilirubin 1.0 AST 15 ALT < 7 L Alkaline Phosphatase 95 C-Reactive Prot, Quant 8.4 H Total Protein 6.2 Albumin 3.1 L Globulin 3.1 Albumin/Globulin Ratio 1.0 L Quality Measures Quality Measures none Assessment & Plan Assessment Current Active Medications: Generic Name Dose Route Start Last Admin Trade Name Freq PRN Reason Stop Dose Admin Acetaminophen 650 mg 03/16/25 05:43 03/19/25 00:59 Acetaminophen 325 Mg Tablet PO 04/15/25 05:42 650 mg Q6H PRN Administration PAIN SCALE 1-3 (mild Acetaminophen 650 mg 03/16/25 05:43 03/16/25 16:39 Acetaminophen 325 Mg Tablet PO 04/15/25 05:42 650 mg Q6H PRN Administration Fever >100.4 Aspirin 81 mg 03/21/25 13:30 03/21/25 13:31 Aspirin Ec 81 Mg Tabec PO 04/20/25 13:29 81 mg QDAY LIU Administration Atorvastatin Calcium 40 mg 03/19/25 21:00 03/20/25 20:07 Atorvastatin Calcium 20 Mg Tablet PO 04/18/25 20:59 40 mg HS LIU Administration Cholestyramine Resin 1 pkt 03/18/25 09:00 03/21/25 08:33 Cholestyramine/Sucrose 1 Pkt Ea PO 04/17/25 08:59 1 pkt QDAY LIU Administration Dextrose 25 ml 03/16/25 07:31 Dextrose 50%-Water Inj 50 Ml Syringe IV 04/15/25 07:30 Q15MIN PRN BG 50-70 responsive npo pt Dextrose 50 ml 03/16/25 07:31 Dextrose 50%-Water Inj 50 Ml Syringe IV 04/15/25 07:30 Q15MIN PRN BG <50 OR BG <70 & pt unresponsive Doxycycline Hyclate 100 mg 03/17/25 21:00 03/21/25 08:33 Doxycycline 100 Mg Tablet PO 03/24/25 20:59 100 mg BID LIU Administration Glucagon 1 mg 03/16/25 07:31 Glucagon Inj 1 Mg Vial IM Q15MIN PRN BG <70, and no IV access Heparin Sodium (Porcine) 5,000 unit 03/16/25 09:00 03/21/25 08:34 Heparin Sod Inj 5000 Unit/Ml Vial SC 03/30/25 08:59 5,000 unit BID LIU Administration Albumin Human 25 gm in 100 mls @ 100 mls/min 03/16/25 07:48 03/16/25 10:45 Albuminar-25 Ivpb IV 100 mls/min PRN PRN Administration DIALYSIS Cefepime HCl 1 gm/ Sodium 50 mls @ 100 mls/hr 03/21/25 11:30 03/21/25 11:59 Chloride IV 03/28/25 11:29 100 mls/hr QDAY@2100 LIU Administration Insulin Human Lispro 0 unit 03/16/25 11:30 03/21/25 11:59 Insulin Lispro (Admelog) 1 Unit/0.01 Ml Unit SC 04/15/25 11:29 1 unit ACHS LIU Administration Protocol Loperamide HCl 2 mg 03/20/25 15:56 03/21/25 14:42 Loperamide 2 Mg Capsule PO 03/27/25 15:55 2 mg Q6HR PRN Administration DIARRHEA Losartan Potassium 50 mg 03/21/25 09:00 03/21/25 08:35 Losartan Potassium 25 Mg Tablet PO 04/20/25 08:59 50 mg QDAY LIU Administration Melatonin 3 mg 03/20/25 17:54 Melatonin 3 Mg Tablet PO 04/19/25 20:59 HS PRN insomnia Ondansetron HCl 4 mg 03/16/25 05:43 Ondansetron Inj 2 Mg/Ml Inj 2 Ml IVP 04/15/25 05:42 Q6H PRN NAUSEA OR VOMITING Protocol Plan Patient is a 55-year-old female with PMHx of HTN, IDDM type II, HFpEF EF 55%, ESRD on HD TTS, who presented on 03/15 for left heel pain, admitted for osteomyelitits of left leg secondary to left heel ulcer. #Osteomyelitis of left heel #Left heel ulcer #Lactic Acidosis, resolved Presenting with right heel pain, with findings of soft tissue infection of the right heel. Denies trauma. She also had lactic acidosis of 3.0, likely combination type B from CKD and less likely type A since no sign sepsis at this point. Blood cultures negative for 48 hours. X-ray left foot shows early osteomyelitis plantar surface of the calcaneus CT left lower extremity shows osteomyelitis calcaneus, with soft tissue infection adjacent to posterior calcaneus. Cellulitis pattern. CTA as below, left leg circulation shows no blockages. S/p 500 cc NS bolus and CFX x 1. S/p IV Zosyn and vancomycin (03/16-03/17) Plan: - Cefepime 1 g every other day and Doxy 100 p.o. twice daily (03/18-04/26) per ID Dr. Banuelos - Outpatient IV cefepime 1-2g per dialysis session ? Wound care ? Hemodialysis TTS - Consulted surgeon Dr. Davey, appreciate recommendations: abx per ID, may require BKA at a later time if unable to heal - Consider hyperbaric oxygen chamber outpatient #Bilateral PAD of lower extremities, chronic On exam, lower extremities appeared edematous and warm to touch. Left leg more tender than right. Likely secondary to long history of uncontrolled diabetes and inconsistent medication follow up. Lower extremity duplex shows severe bilateral peripheral obstructive arterial disease, appears to be chronic, similar findings in 08/10/24. CTA abdominal aorta iliofemoral runoff shows multiple significant stenoses involving the mid and distal right posterior tibial artery, no occlusion in the left posterior tibial artery. Patient will greatly benefit from stent placement given poor blood circulation to extremities, will likely improve chances of wound healing in addition to hyperbaric oxygen chamber. Explained to patient her circumstance and discussed risks and benefits of procedure, which patient was eventually agreeable to. Plan: - Consulted vascular surgeon Dr. Arevalo, appreciate recommendations: agreeable to procedure but will not be able to see her until 03/23 - Consulted naval engineer Dr. Barclay: Cleared from cardiology standpoint to have vascular angiogram - CTM pulses and healing ulcers - Started on Aspirin 81mg once daily. #Diarrhea, chronic Reports 1 month history of loose stools, 6-7 episodes per day. Denies fevers, nausea, vomiting, hematochezia, melena. Given chronic nature, possibly IBS versus malabsorption versus medication induced. Of note, home medications include loperamide 2 mg prn, reports taking it but without much improvement. Negative for Campylobacter, E coli Shiga tox, Salmonella, Shigella. Continue as stool calprotectin and Giardia were negative back in August 2024. Plan: - Cholestyramine 4g daily - Loperamide 2 mg prn - Pending stool cultures and calprotectin - Pending Giardia antigen - CTM bowel movements or signs of infection #ESRD on HD TTS Last hemodialysis on Saturday, renal panel appears at baseline. Follows Dr. Yap outpatient. Dialysis sessions: 03/16 (-3.2L), 03/18 (-3.4L), 03/20 (-3.0 L) ? Anesthetic Assistant Dr. Yap consulted, appreciate recommendations ? TTS HD schedule #Hx of IDDM A1c 7.1 from 08/2024. Glucose 152 on admission. A1c 7.7 on 03/16. ? INSULIN sliding scale ? Accu-Cheks #HFrEF EF 50-55% (03/17/25) Echo 08/2024: EF 55%. Hypokinetic anterior septal wall motion. RV is mildly dilated with moderately decreased systolic function. Estimated RVSP, 47mmHg. RAP 15. Mild MR. Has bilateral lower extremity edema likely combination HFpEF and ESRD. Echo 03/17 shows EF 50 to 55%, grade 1 diastolic dysfunction and hypokinetic anterior septal wall motion. RV mildly dilated with moderately decreased systolic function. Normal LV size. Mild MR. Moderate TR and mild PI. S/p 500 cc IVF for above-mentioned lactic acidosis. No signs or symptoms of CHF exacerbation. Plan: ? Avoid too much fluid ? Hemodialysis as above #Depression Endorses more frequent days of fatigue and trouble falling asleep over the past 2 weeks however reports she still enjoys cooking for her family and is eating well. Denies thoughts of self-harm. Patient appeared to be very discouraged during this admission, likely secondary to discussions of possible amputation and vascular surgery procedure. Per above, patient likely has mild to moderate depression. Plan: - Was not interested in starting therapy/counseling or medication for mood management at this time Health Maintenance Disposition: management of left foot diabetic ulcer DVT prophylaxis: heparin GI prophylaxis: protonix Bowel: Senna Diet: Carb consistent CODE STATUS: FULL Patient plan of care was discussed with the attending physician, Dr. Ivette Garcia, PGY2 Attending Provider Attestation/Addendum I attest that I was physically present for the evaluation, physical examination, lab and imaging review of the patient with the residents. I discussed the case with the residents and agree with the findings and plans of care as documented above. Patient seen and examined at bedside. Continues to be on IV antibiotics for her osteomyelitis. Noted patient receiving every 48 hour antibiotics, not always aligned with hemodialysis, discussed with pharmacy, we will continue with daily IV cefepime until patient is inpatient and will arrange IV cefepime after her dialysis sessions is completed. Awaiting vascular surgery evaluation, we will start her on aspirin and continue with statin. Charles Steele MD
[2025-03-21] MEDS: ATORVASTATIN CALCIUM 20 MG TABLET 40 MG PO (20:29)
[2025-03-22] VITALS (11 sets, daily range): BP systolic 109–144; BP diastolic 66–76; PULSE 68–94; RESP 14–18; TEMP 36.2–36.7; O2SAT 98–100
[2025-03-22 05:14] LABS: Basophils # (Auto) 0.1 Thou/mm3 (0.0-0.2); Basophils % (Auto) 0 % (0-2.5); Eosinophils # (Auto) 0.1 Thou/mm3 (0.0-0.5); Eosinophils % (Auto) 1 % (0-10); Hematocrit 30.6 % (36.0-46.0); Hemoglobin 9.6 g/dL (12.0-16.0); Immature Granulocytes Auto 0.18 Thou/mm3 (0.00-0.00); Lymphocytes # (Auto) 1.1 Thou/mm3 (1.0-4.8); Lymphocytes % (Auto) 7 % (10-50); Mean Corpuscular HGB Conc 31.4 g/dl (31.0-37.0); Mean Corpuscular Hemoglobin 28.7 pg (25.0-35.0); Mean Corpuscular Volume 91 fL (80-100); Monocytes # (Auto) 0.8 Thou/mm3 (0.0-0.8); Monocytes % (Auto) 5 % (0-12); Neutrophils # (Auto) 13.6 Thou/mm3 (1.8-7.7); Neutrophils % (Auto) 87 % (37-80); Nucleated Red Blood Cell # 0.00 Thou/mm3 (0.00-0.00); Nucleated Red Blood Cell % 0 /100 WBC (0); Platelet Count 283 Thou/mm3 (140-440); RDW Standard Deviation 55.3 fL (36.4-46.3); Red Blood Count 3.35 Miln/mm3 (4.00-5.20); White Blood Count 15.8 Thou/mm3 (3.6-11.0)
[2025-03-22 06:08] LABS: Alanine Aminotransferase < 7 U/L (10-49); Albumin, Serum 3.1 gm/dL (3.5-5.0); Albumin/Globulin Ratio 1.0 (1.2-2.2); Alkaline Phosphatase 87 U/L (46-116); Anion Gap 13 (7-16); Aspartate Amino Transferase 13 U/L (0-34); BUN/Creatinine Ratio 8 Ratio (12-20); Bilirubin,Total 0.9 mg/dL (0.3-1.2); Blood Urea Nitrogen 45 mg/dL (9-23); Calcium 8.3 mg/dL (8.3-10.6); Calcium (Corrected) 9.0 mg/dL (8.5-10.1); Carbon Dioxide 26.1 mMol/L (20.0-31.0); Chloride 96 mMol/L (98-107); Creatinine (Component) 5.4 mg/dL (0.6-1.3); Estimated Creatinine Clearance 11.2 mL/min (>60); Globulin 3.1 gm/dL (2.3-3.5); Glucose 105 mg/dL (74-106); Magnesium 2.1 mg/dL (1.6-2.6); Osmolality,Calculated 281 (275-295); Phosphorous 4.3 mg/dL (2.4-5.1); Potassium 4.1 mMol/L (3.4-5.1); Sodium 135 mMol/L (136-145); Total Protein 6.2 gm/dL (5.7-8.2); eGFR 9 See Note
[2025-03-22 06:33] LABS: Giardia Result NOT DETECTED
[2025-03-22] MEDS: DOXYCYCLINE 100 MG TABLET PO ×2 (08:13→21:48)
[2025-03-22] MEDS: HEPARIN SOD INJ 5000 UNIT/ML VIAL SC ×2 (08:13→21:47)
[2025-03-22] MEDS: CHOLESTYRAMINE/SUCROSE 1 PKT EA PO (08:14)
[2025-03-22] MEDS: ASPIRIN EC 81 MG TABEC PO (08:14)
[2025-03-22] MEDS: LOSARTAN POTASSIUM 25 MG TABLET 50 MG PO (08:14)
--- NOTE | 2025-03-22 09:00 | PD.RESPRO ---
Documentation for date of: 03/22/25 Subjective Subjective Interval history: 55 y/o F with PMH of HTN, IDDM type II, HFpEF EF 55% on 08/2024, ESRD on HD TTS, presented to the hospital on 03/16/2025 due to worsening chronic BLE wounds, pain, and swelling for last 3 days. Patient complained of pain in both knees and feet, expecially on the left heel which was oozing with blood. Patient received hemodialysis session last saturday. Patient didn't had any recent trauma to any of her lower extremities. Denies chest pain, palpation, SOB, abdominal pain, N/V, fevers, or chills. Patient has been consulted for management of ESRD on HD ED course: Afebrile, HR 90, BP 158/71, satting upper 90s on room air. Negative COVID, influenza A/B. WBC 16.6, Hgb 11.1 (baseline 9.6), PLT 244. Normal coag panel. CHEM panel significant for sodium 133 around baseline, lactic acid 3.0, CRP 15.6, PRO-FRANCISCO 13.76, ESR 124. Renal function around baseline with CR 8.8, GFR 5, BUN 70, potassium of 3.5. She has anion gap of 18, likely CKD/uremia/lactic acidosis. UA negative for UTI. Preliminary right foot x-ray showed skin and soft tissue infection with possible necrosis (pending final read) Medical history: As stated above Surgical history: Surgery for cataract and kidney stones. Allergies: NKDA Medications: Pending official med rec Family history: Noncontributory Social history: Denies smoking cigarettes, drinking alcohol or using other illicit drugs ROS: All 12 systems assessed and the patient denies unless otherwise stated in HPI 03/16/2025: Labs reviewed and patient examined at the dialysis. Patient complained of worsening discomfort on her feet. Blood was still oozing on her left heel. Cr: 8.8, BUN: 70, eGFR: 5, Hgb: 11.1 MCV: 90. Patient received hemodialysis today. 03/17/2025: Labs reviewed and patient examined at the bedside. Patient noted her pain on both knees has decreased considerably. Patient is continuing to get wound care on her unroofed blisters of left heel. Today, patient had an episode of diarrhea in bed, but did not notify staff. She was observed reaching toward the stool with her fingers. Patient demonstrates limited awareness of personal hygiene and may benefit from close monitoring and assistance with self care. BP: 99/64, Cr:7.3, BUN:44, eGFR:6. Planned for hemodialysis tomorrow. Fluid restrict the patient to <1500ml per day. 03/18/2025: Labs reviewed and patient examined at the dialysis. Patient complained of significant diarrhea. Will continue to monitor her renal function. Patient received hemodialysis today. BP 134/72, Cr: 7.4, BUN: 36, eGFR: 6. 03/19/2025: Patient was seen and evaluated at bedside this morning. Labs were reviewed. No overnight events. Patient's WBC still elevated at 13.4, creatinine 5.6, BUN 29, GFR 8. Patient is declining left foot amputation and would like to try and see if the wound heals. Patient CTA did not show major filling defects on the left lower extremity vessels. Continue with hemodialysis as scheduled. Consider vascular surgery. 03/20/2025: patient currently seen in dialysis. On antibiotics for the left heel wound decubitus ulcer. CTA showed adequate circulation of the left lower extremity. Spoke to Dr. Arevalo-will see patient in next Saturday. Conveyed the same to primary team. Patient declines and left BKA. Seen by Dr. Davey Currently on antibiotics per Dr. Banuelos. 03/21/2025: Labs reviewed and patient examined at the bedside. Patient currently has no other complaints. Cr:4.4, BUN:29, eGFR:11. Pateint will continue on antibiotics. Hemodialysis session planned for next saturday. 03/22/2025: Labs reviewed and patient examined at the bedside. Complained of generalized pain. Cr:5.4, BUN:45, eGFR:9. Pateint will continue on antibiotics. Hemodialysis session planned for next saturday. Exam Vital Signs Temp Pulse Resp BP Pulse Ox O2 Del Method O2 Flow Rate 98.0 F 75 14 144/71 H 100 Nasal Cannula 2.5 03/22/25 07:39 03/22/25 08:27 03/22/25 07:39 03/22/25 08:14 03/22/25 07:39 03/22/25 07:39 03/22/25 07:39 Narrative Exam General: No acute distress, well nourished, AAO x3 Eye: PERRL, EOMI, normal conjunctiva, no scleral icterus HENT: Normocephalic, atraumatic, hearing intact to conversation at normal volume, moist oral mucosa Neck: Supple, non-tender, no JVD, no lymphadenopathy Lungs: Non-labored respirations, symmetric chest rise, Clear to auscultate bilaterally, No wheezing, rhonchi, crackles Heart: Peripheral pulses intact bilaterally, Regular Rate and Rhythm. Abdomen: Soft, non-tender, non-distended, no palpable masses Musculoskeletal: Normal range of motion and strength,No visible joint swelling, +1 pitting edema BLE. Skin: Multiple abrasions in bilateral knees and feet. Tendor on palpation. Wound on left heel covered with sterile gauze bandage. Psychiatric: Cooperative, appropriate mood and affect, Awake and alert, not agitated Neuro: Cranial nerves II-XII grossly intact. Sensations intact to light touch. Objective Labs 03/22/25 04:15 03/22/25 04:15 Labs: Laboratory Results - last 24 hr 03/17/25 03/22/25 11:18 04:15 WBC 15.8 H RBC 3.35 L Hgb 9.6 L Hct 30.6 L MCV 91 MCH 28.7 MCHC 31.4 RDW Std Deviation 55.3 H Plt Count 283 Neut % (Auto) 87 H Lymph % (Auto) 7 L [place] % (Auto) 5 Eos % (Auto) 1 Baso % (Auto) 0 Neut # (Auto) 13.6 H Lymph # (Auto) 1.1 [place] # (Auto) 0.8 Eos # (Auto) 0.1 Baso # (Auto) 0.1 Immature Gran # (Auto) 0.18 H Absolute Nucleated RBC 0.00 Immature Gran % 1 H Nucleated RBC % 0 Sodium 135 L Potassium 4.1 D Chloride 96 L Carbon Dioxide 26.1 Anion Gap 13 BUN 45 H Creatinine 5.4 H* D Estim Creat Clear Calc 11.2 L eGFR 9 L* BUN/Creatinine Ratio 8 L Glucose 105 Calculated Osmolality 281 Calcium 8.3 Corrected Calcium 9.0 Phosphorus 4.3 Magnesium 2.1 Total Bilirubin 0.9 AST 13 ALT < 7 L Alkaline Phosphatase 87 Total Protein 6.2 Albumin 3.1 L Globulin 3.1 Albumin/Globulin Ratio 1.0 L Stl Giardia Antigen NOT DETECTED Quality Measures Quality Measures none Assessment & Plan Assessment Current Active Medications: Generic Name Dose Route Start Last Admin Trade Name Freq PRN Reason Stop Dose Admin Acetaminophen 650 mg 03/16/25 05:43 03/19/25 00:59 Acetaminophen 325 Mg Tablet PO 04/15/25 05:42 650 mg Q6H PRN Administration PAIN SCALE 1-3 (mild Acetaminophen 650 mg 03/16/25 05:43 03/16/25 16:39 Acetaminophen 325 Mg Tablet PO 04/15/25 05:42 650 mg Q6H PRN Administration Fever >100.4 Aspirin 81 mg 03/21/25 13:30 03/22/25 08:14 Aspirin Ec 81 Mg Tabec PO 04/20/25 13:29 81 mg QDAY LIU Administration Atorvastatin Calcium 40 mg 03/19/25 21:00 03/21/25 20:29 Atorvastatin Calcium 20 Mg Tablet PO 04/18/25 20:59 40 mg HS LIU Administration Cholestyramine Resin 1 pkt 03/18/25 09:00 03/22/25 08:14 Cholestyramine/Sucrose 1 Pkt Ea PO 04/17/25 08:59 1 pkt QDAY LIU Administration Dextrose 25 ml 03/16/25 07:31 Dextrose 50%-Water Inj 50 Ml Syringe IV 04/15/25 07:30 Q15MIN PRN BG 50-70 responsive npo pt Dextrose 50 ml 03/16/25 07:31 Dextrose 50%-Water Inj 50 Ml Syringe IV 04/15/25 07:30 Q15MIN PRN BG <50 OR BG <70 & pt unresponsive Doxycycline Hyclate 100 mg 03/17/25 21:00 03/22/25 08:13 Doxycycline 100 Mg Tablet PO 03/24/25 20:59 100 mg BID LIU Administration Glucagon 1 mg 03/16/25 07:31 Glucagon Inj 1 Mg Vial IM Q15MIN PRN BG <70, and no IV access Heparin Sodium (Porcine) 5,000 unit 03/16/25 09:00 03/22/25 08:13 Heparin Sod Inj 5000 Unit/Ml Vial SC 03/30/25 08:59 5,000 unit BID LIU Administration Albumin Human 25 gm in 100 mls @ 100 mls/min 03/16/25 07:48 03/16/25 10:45 Albuminar-25 Ivpb IV 100 mls/min PRN PRN Administration DIALYSIS Cefepime HCl 1 gm/ Sodium 50 mls @ 100 mls/hr 03/21/25 11:30 03/21/25 11:59 Chloride IV 03/28/25 11:29 100 mls/hr QDAY@2100 LIU Administration Insulin Human Lispro 0 unit 03/16/25 11:30 03/22/25 07:51 Insulin Lispro (Admelog) 1 Unit/0.01 Ml Unit SC 04/15/25 11:29 Not Given ACHS LIU Protocol Loperamide HCl 2 mg 03/20/25 15:56 03/21/25 14:42 Loperamide 2 Mg Capsule PO 03/27/25 15:55 2 mg Q6HR PRN Administration DIARRHEA Losartan Potassium 50 mg 03/21/25 09:00 03/22/25 08:14 Losartan Potassium 25 Mg Tablet PO 04/20/25 08:59 50 mg QDAY LIU Administration Melatonin 3 mg 03/20/25 17:54 Melatonin 3 Mg Tablet PO 04/19/25 20:59 HS PRN insomnia Ondansetron HCl 4 mg 03/16/25 05:43 Ondansetron Inj 2 Mg/Ml Inj 2 Ml IVP 04/15/25 05:42 Q6H PRN NAUSEA OR VOMITING Protocol Plan 55-year-old female with PMHx of HTN, IDDM type II, HFpEF EF 55% on 08/2024, ESRD on HD TTS, presenting with right heel pain. Patient has been consulted to nephrology for managment of ESRD on HD #ESRD on hemodialysis. #Anemia of Chronic Kidney disease -On admission: Cr: 8.8, BUN: 70, eGFR: 5, Hgb: 11.1 MCV: 90 -The patient's hemodialysis session is Saturday, , and Saturday. -Currently, Cr:5.4, BUN:45, eGFR:9. -Hemodialysis sessions: 03/16, 03/18, 03/20 Plan: -Monitor renal function -Maintain fluid restriction, avoid nephrotoxic agents when possible, renally dose medications -Strict i and o -Planned for hemodialysis session next saturday. #Lactic Acidosis Type A vs. B #left heel decubitus ulcer--surgical evaluation done. Patient with severe PVD. Might need a BKA. #IDDM #HFrEF EF 55% 08/2024 -Management per Primary Hospitalist team Thank you for allowing us to participate in the care of your patient. Assessment and plan discussed with my attending physician Dr. Marely Melchor (PGY-1)- Internal medicine resident Attending Provider Attestation/Addendum Patient seen and examined with resident physician Dr. Melchor. Note reviewed, agree with findings and recommendations. Next dialysis scheduled for Saturday Dr. Arevalo will come and see patient tomorrow for the left heel diabetic/decubitus ulcer. Patient declines left BKA. On broad-spectrum antibiotics.
--- NOTE | 2025-03-22 09:32 | ESPR_ITS ---
<Statement entered by Adin Garcia MD - 03/22/25 14:18> Patient is seen and examined at bedside. No acute overnight events. Noted to have 11 bowel movements yesterday, loose stools but without mucus, blood. Patient had chronic history of diarrhea which was extensively worked up with a colonoscopy and biopsy but the cause is still unknown. Takes loperamide as needed, not of much help per patient but unsure about the patient's complaints. Otherwise patient is doing good. Vitals are stable. Labs done this morning showed downtrending WBC, 15.8. Also noted to have normocytic normochromic anemia. Ordered iron panel, B12, folate studies and will follow-up on the results. Will get HD sessions as per her routine schedule, on Saturday//Saturday. Pending vascular surgeon, Dr. Arevalo recommendations tomorrow. Based on the recommendations, will decide to discharge patient tomorrow with the IV antibiotics. Discussed about SNF placement benefits with the patient and she reported that she is still considering about going to SNF on discharge. Will continue IV antibiotics and her regular dialysis sessions for now. #Osteomyelitis of left heel #Left heel ulcer #Bilateral PAD of lower extremities, chronic #Diarrhea, chronic #ESRD on HD TTS #Diabetes mellitus #HFpEF EF 50-55% (03/17/25) #Depression #Normocytic normochromic Anemia I have personally seen and examined the patient, agree with residents assessment and plan Patient plan of care was discussed with the attending physician, Dr. Ivette Garcia, PGY2 Documentation for date of: 03/22/25 Subjective Subjective Interval history: Continues to have multiple loose bowel movements, ordered TTG. Continue cholestyramine daily, continue loperamide prn (2 mg after ever loose stool, max 16 mg/day). Patient was in better spirits today. Discussed with patient's importance of following up with dialysis appointments as she will also be receiving antibiotics at the center. Rediscussed possibility of being discharged to SNF, today patient seemed more amenable to being discharged there to regain her strength and receive closer attention/care. Pending vascular surgeon Dr. Arevalo's evaluation tomorrow, continue ASA 81 mg daily. Plan for hemodialysis session tomorrow. Will continue antibiotics per ID recommendations. Exam Vital Signs Temp Pulse Resp BP Pulse Ox O2 Del Method O2 Flow Rate 98.0 F 75 14 144/71 H 100 Nasal Cannula 2.5 03/22/25 07:39 03/22/25 08:27 03/22/25 07:39 03/22/25 08:14 03/22/25 07:39 03/22/25 07:39 03/22/25 07:39 Narrative Exam Physical Exam General: Awake and in no acute distress. Mildly depressed. Appears older that actual age. HEENT: Normocephalic, atraumatic, mucous membranes moist. Heart: Regular rate and rhythm, normal S1 and S2, no murmurs. Lungs: Clear to auscultation with no wheezing or crackles. Abdomen: Soft, nondistended, nontender, positive bowel sounds. No guarding or rebound tenderness. Neurologic: Alert and oriented x3, no gross neurological deficit, and patient able to move all 4 extremities. Extremities: Left heel wound, well dressed with minimal drainage. Dressing clean dry and intact. Multiple healed ulcerations on bilateral legs and right hip. Wrinkling skin on bilateral calves, no edema bilaterally. Pedal pulses diminished bilaterally. Skin: No rash or ecchymoses. Objective Labs 03/22/25 04:15 03/22/25 04:15 Labs: Laboratory Results - last 24 hr 03/17/25 03/22/25 11:18 04:15 WBC 15.8 H RBC 3.35 L Hgb 9.6 L Hct 30.6 L MCV 91 MCH 28.7 MCHC 31.4 RDW Std Deviation 55.3 H Plt Count 283 Neut % (Auto) 87 H Lymph % (Auto) 7 L [place] % (Auto) 5 Eos % (Auto) 1 Baso % (Auto) 0 Neut # (Auto) 13.6 H Lymph # (Auto) 1.1 [place] # (Auto) 0.8 Eos # (Auto) 0.1 Baso # (Auto) 0.1 Immature Gran # (Auto) 0.18 H Absolute Nucleated RBC 0.00 Immature Gran % 1 H Nucleated RBC % 0 Sodium 135 L Potassium 4.1 D Chloride 96 L Carbon Dioxide 26.1 Anion Gap 13 BUN 45 H Creatinine 5.4 H* D Estim Creat Clear Calc 11.2 L eGFR 9 L* BUN/Creatinine Ratio 8 L Glucose 105 Calculated Osmolality 281 Calcium 8.3 Corrected Calcium 9.0 Phosphorus 4.3 Magnesium 2.1 Total Bilirubin 0.9 AST 13 ALT < 7 L Alkaline Phosphatase 87 Total Protein 6.2 Albumin 3.1 L Globulin 3.1 Albumin/Globulin Ratio 1.0 L Stl Giardia Antigen NOT DETECTED Quality Measures Quality Measures none Assessment & Plan Assessment Current Active Medications: Generic Name Dose Route Start Last Admin Trade Name Freq PRN Reason Stop Dose Admin Acetaminophen 650 mg 03/16/25 05:43 03/19/25 00:59 Acetaminophen 325 Mg Tablet PO 04/15/25 05:42 650 mg Q6H PRN Administration PAIN SCALE 1-3 (mild Acetaminophen 650 mg 03/16/25 05:43 03/16/25 16:39 Acetaminophen 325 Mg Tablet PO 04/15/25 05:42 650 mg Q6H PRN Administration Fever >100.4 Aspirin 81 mg 03/21/25 13:30 03/22/25 08:14 Aspirin Ec 81 Mg Tabec PO 04/20/25 13:29 81 mg QDAY LIU Administration Atorvastatin Calcium 40 mg 03/19/25 21:00 03/21/25 20:29 Atorvastatin Calcium 20 Mg Tablet PO 04/18/25 20:59 40 mg HS LIU Administration Cholestyramine Resin 1 pkt 03/18/25 09:00 03/22/25 08:14 Cholestyramine/Sucrose 1 Pkt Ea PO 04/17/25 08:59 1 pkt QDAY LIU Administration Dextrose 25 ml 03/16/25 07:31 Dextrose 50%-Water Inj 50 Ml Syringe IV 04/15/25 07:30 Q15MIN PRN BG 50-70 responsive npo pt Dextrose 50 ml 03/16/25 07:31 Dextrose 50%-Water Inj 50 Ml Syringe IV 04/15/25 07:30 Q15MIN PRN BG <50 OR BG <70 & pt unresponsive Doxycycline Hyclate 100 mg 03/17/25 21:00 03/22/25 08:13 Doxycycline 100 Mg Tablet PO 03/24/25 20:59 100 mg BID LIU Administration Glucagon 1 mg 03/16/25 07:31 Glucagon Inj 1 Mg Vial IM Q15MIN PRN BG <70, and no IV access Heparin Sodium (Porcine) 5,000 unit 03/16/25 09:00 03/22/25 08:13 Heparin Sod Inj 5000 Unit/Ml Vial SC 03/30/25 08:59 5,000 unit BID LIU Administration Albumin Human 25 gm in 100 mls @ 100 mls/min 03/16/25 07:48 03/16/25 10:45 Albuminar-25 Ivpb IV 100 mls/min PRN PRN Administration DIALYSIS Cefepime HCl 1 gm/ Sodium 50 mls @ 100 mls/hr 03/21/25 11:30 03/21/25 11:59 Chloride IV 03/28/25 11:29 100 mls/hr QDAY@2100 LIU Administration Insulin Human Lispro 0 unit 03/16/25 11:30 03/22/25 07:51 Insulin Lispro (Admelog) 1 Unit/0.01 Ml Unit SC 04/15/25 11:29 Not Given ACHS LIU Protocol Loperamide HCl 2 mg 03/20/25 15:56 03/21/25 14:42 Loperamide 2 Mg Capsule PO 03/27/25 15:55 2 mg Q6HR PRN Administration DIARRHEA Losartan Potassium 50 mg 03/21/25 09:00 03/22/25 08:14 Losartan Potassium 25 Mg Tablet PO 04/20/25 08:59 50 mg QDAY LIU Administration Melatonin 3 mg 03/20/25 17:54 Melatonin 3 Mg Tablet PO 04/19/25 20:59 HS PRN insomnia Ondansetron HCl 4 mg 03/16/25 05:43 Ondansetron Inj 2 Mg/Ml Inj 2 Ml IVP 04/15/25 05:42 Q6H PRN NAUSEA OR VOMITING Protocol Plan Patient is a 55-year-old female with PMHx of HTN, NIDDM type II with multiple complications, HFrEF EF 50-55%, ESRD on HD TTS, who presented on 03/15 for left heel pain, admitted for osteomyelitits of left leg secondary to left heel ulcer. #Osteomyelitis of left heel #Left heel ulcer #Lactic Acidosis, resolved Presenting with right heel pain, with findings of soft tissue infection of the right heel. Denies trauma. She also had lactic acidosis of 3.0, likely combination type B from CKD and less likely type A since no sign sepsis at this point. Blood cultures negative for 48 hours. X-ray left foot shows early osteomyelitis plantar surface of the calcaneus CT left lower extremity shows osteomyelitis calcaneus, with soft tissue infection adjacent to posterior calcaneus. Cellulitis pattern. CTA as below, left leg circulation shows no blockages. S/p 500 cc NS bolus and CFX x 1. S/p IV Zosyn and vancomycin (03/16-03/17) Plan: - Cefepime 1 g every other day and Doxy 100 p.o. twice daily (03/18-04/26) per ID Dr. Banuelos - Outpatient IV cefepime 1-2g per dialysis session ? Wound care ? Hemodialysis TTS - Consulted surgeon Dr. Davey, appreciate recommendations: abx per ID, may require BKA at a later time if unable to heal - Consider hyperbaric oxygen chamber outpatient #Bilateral PAD of lower extremities, chronic On exam, lower extremities appeared edematous and warm to touch. Left leg more tender than right. Likely secondary to long history of uncontrolled diabetes and inconsistent medication follow up. Lower extremity duplex shows severe bilateral peripheral obstructive arterial disease, appears to be chronic, similar findings in 08/10/24. CTA abdominal aorta iliofemoral runoff shows multiple significant stenoses involving the mid and distal right posterior tibial artery, no occlusion in the left posterior tibial artery. Patient will greatly benefit from stent placement given poor blood circulation to extremities, will likely improve chances of wound healing in addition to hyperbaric oxygen chamber. Explained to patient her circumstance and discussed risks and benefits of procedure, which patient was eventually agreeable to. Plan: - Consulted vascular surgeon Dr. Arevalo, appreciate recommendations: will evaluate patient on 03/23 - Consulted sample dye mixer Dr. Barclay, appreciate recommendations: Cleared from cardiology standpoint to have vascular angiogram - CTM pulses and healing ulcers - Aspirin 81mg once daily #Diarrhea, chronic Reports at least 1 month history of loose stools, 6-7 episodes per day. Denies fevers, nausea, vomiting, hematochezia, melena. Given chronic nature, possibly IBS versus malabsorption versus medication induced. Of note, home medications include loperamide 2 mg prn, reports taking it but without much improvement. Of note, patient previously had GI workup for same chronic diarrhea. Colonoscopy 08/14/2024 showed medium polyp on proximal ascending colon and hemorrhoids but otherwise unremarkable. Biopsies were negative for microscopic colitis and dysplasia. Negative for Campylobacter, E coli Shiga tox, Salmonella, Shigella. Giardia negative. Note, stool calprotectin and Giardia were negative back in August 2024. Plan: - Cholestyramine 4g daily - Loperamide 2 mg prn - Pending calprotectin - Follow-up TTG - CTM bowel movements or signs of infection #ESRD on HD TTS Last hemodialysis on Saturday, renal panel appears at baseline. Follows Dr. Yap outpatient. Dialysis sessions: 03/16 (-3.2L), 03/18 (-3.4L), 03/20 (-3.0 L) ? Tape Fastener Machine Operator Dr. Yap consulted, appreciate recommendations ? TTS HD schedule #Hx of NIDDM A1c 7.1 from 08/2024. Glucose 152 on admission. A1c 7.7 on 03/16. ? INSULIN sliding scale ? Accu-Cheks #HFrEF EF 50-55% (03/17/25) #Grade I diastolic dysfunction Echo 08/2024: EF 55%. Hypokinetic anterior septal wall motion. RV is mildly dilated with moderately decreased systolic function. Estimated RVSP, 47mmHg. RAP 15. Mild MR. Has bilateral lower extremity edema likely combination HFpEF and ESRD. Echo 03/17 shows EF 50 to 55%, grade 1 diastolic dysfunction and hypokinetic anterior septal wall motion. RV mildly dilated with moderately decreased systolic function. Normal LV size. Mild MR. Moderate TR and mild PI. S/p 500 cc IVF for above-mentioned lactic acidosis. No signs or symptoms of CHF exacerbation. Plan: ? Avoid too much fluid ? Hemodialysis as above #Depression Endorses more frequent days of fatigue and trouble falling asleep over the past 2 weeks however reports she still enjoys cooking for her family and is eating well. Denies thoughts of self-harm. Patient appeared to be very discouraged during this admission, likely secondary to discussions of possible amputation and vascular surgery procedure. Per above, patient likely has mild to moderate depression. Plan: - Not interested in starting therapy/counseling or medication for mood management at this time Health Maintenance Disposition: management of left foot diabetic ulcer DVT prophylaxis: heparin GI prophylaxis: protonix Bowel: Senna Diet: Carb consistent CODE STATUS: FULL Patient plan of care was discussed with the attending physician, Dr. Ivette Garcia, PGY2 Attending Provider Attestation/Addendum I attest that I was physically present for the evaluation, physical examination, lab and imaging review of the patient with the residents. I discussed the case with the residents and agree with the findings and plans of care as documented above. Patient seen and examined at bedside. Appears comfortable, more cheerful compared to yesterday. Denies any new complaints, vital signs are stable except for mild hypertension. Lab results show improving WBC count. Chemistry panels remained stable. Patient continues to work with physical therapy, echocardiography showed hypokinetic apical anterior septal wall motion, ejection fraction of 55 to 50% RSVP 47 mmHg. Patient had 11 bowel movements yesterday, has been having chronic diarrhea which has been extensively worked up. We will continue with cholestyramine and as needed loperamide and monitor her bowel movements closely. Awaiting vascular surgery recommendation, we will likely see the patient tomorrow. Continues to be on IV antibiotics. Discussed the patient about SNF placement, patient stated she will think about it and let us know her decision. We will also continue with wound care. Continues to be on aspirin and statin for PAD. Insulin regimen for diabetes. Nephrology following closely for scheduled hemodialysis, appreciate recommendations. Charles Steele MD
--- NOTE | 2025-03-22 14:26 | PC.SS ---
Rounding: Pending vascular sx consult, on IV ABX, SNF referral sent pending responses
--- NOTE | 2025-03-22 14:46 | PC.SS ---
Addendum entered by Zaynab Cisneros 03/22/25 15:08: [facility] contacted [facility] to confirm they received information for IV ABX, Per Ariane Charge Nurse, she has not received it just yet, she stated to follow up with them tomorrow. Sandra COMER made aware to follow up tomorrow. Original Note: [facility] faxed [facility] IV ABX information.
--- NOTE | 2025-03-22 15:04 | PC.SS ---
PASRR LVL 1 submitted and downloaded
[2025-03-22 15:46] LABS: Iron 27 mcg/dL (50-170); Percent Iron Saturation 14 % (20-55); Total Iron Binding Capacity 189 mcg/dL (250-425); Unsaturated Iron Binding 162 (225-295)
[2025-03-22 15:50] LABS: Folate 14.78 ng/mL (>5.38); Vitamin B12 672 pg/mL (211-911)
--- NOTE | 2025-03-22 16:54 | PC.PT ---
Patient is safe to ambulate to the bathroom with a FWW, TTWB on the L foot, O2, and 1 staff. RN made aware.
[2025-03-22] MEDS: INSULIN LISPRO (AdmeLOG) 1 UNIT/0.01 ML UNIT SC (17:01)
[2025-03-22] MEDS: CEFEPIME INJ 1 GM in SODIUM CHLORIDE 0.9% (Popper) 50 ML IV (21:45)
[2025-03-22] MEDS: ATORVASTATIN CALCIUM 20 MG TABLET 40 MG PO (21:48)
[2025-03-23] VITALS (23 sets, daily range): BP systolic 122–160; BP diastolic 59–82; PULSE 68–86; RESP 13–19; TEMP 36–36.7; O2SAT 98–100; BMI 28.6
[2025-03-23 05:19] LABS: Basophils # (Auto) 0.1 Thou/mm3 (0.0-0.2); Basophils % (Auto) 0 % (0-2.5); Eosinophils # (Auto) 0.1 Thou/mm3 (0.0-0.5); Eosinophils % (Auto) 1 % (0-10); Hematocrit 32.4 % (36.0-46.0); Hemoglobin 10.3 g/dL (12.0-16.0); Immature Granulocytes Auto 0.19 Thou/mm3 (0.00-0.00); Lymphocytes # (Auto) 1.1 Thou/mm3 (1.0-4.8); Lymphocytes % (Auto) 7 % (10-50); Mean Corpuscular HGB Conc 31.8 g/dl (31.0-37.0); Mean Corpuscular Hemoglobin 29.0 pg (25.0-35.0); Mean Corpuscular Volume 91 fL (80-100); Monocytes # (Auto) 0.8 Thou/mm3 (0.0-0.8); Monocytes % (Auto) 5 % (0-12); Neutrophils # (Auto) 12.8 Thou/mm3 (1.8-7.7); Neutrophils % (Auto) 85 % (37-80); Nucleated Red Blood Cell # 0.00 Thou/mm3 (0.00-0.00); Nucleated Red Blood Cell % 0 /100 WBC (0); Platelet Count 262 Thou/mm3 (140-440); RDW Standard Deviation 55.4 fL (36.4-46.3); Red Blood Count 3.55 Miln/mm3 (4.00-5.20); White Blood Count 15.1 Thou/mm3 (3.6-11.0)
[2025-03-23 06:11] LABS: Alanine Aminotransferase < 7 U/L (10-49); Albumin, Serum 3.1 gm/dL (3.5-5.0); Albumin/Globulin Ratio 0.8 (1.2-2.2); Alkaline Phosphatase 90 U/L (46-116); Anion Gap 15 (7-16); Aspartate Amino Transferase 14 U/L (0-34); BUN/Creatinine Ratio 7 Ratio (12-20); Bilirubin,Total 0.9 mg/dL (0.3-1.2); Blood Urea Nitrogen 44 mg/dL (9-23); Calcium 8.7 mg/dL (8.3-10.6); Calcium (Corrected) 9.4 mg/dL (8.5-10.1); Carbon Dioxide 22.3 mMol/L (20.0-31.0); Chloride 96 mMol/L (98-107); Creatinine (Component) 6.2 mg/dL (0.6-1.3); Estimated Creatinine Clearance 9.7 mL/min (>60); Globulin 3.7 gm/dL (2.3-3.5); Glucose 101 mg/dL (74-106); Magnesium 2.2 mg/dL (1.6-2.6); Osmolality,Calculated 277 (275-295); Phosphorous 4.8 mg/dL (2.4-5.1); Potassium 4.1 mMol/L (3.4-5.1); Sodium 133 mMol/L (136-145); Total Protein 6.8 gm/dL (5.7-8.2); eGFR 7 See Note
--- NOTE | 2025-03-23 08:42 | ESPR_ITS ---
Documentation for date of: 03/23/25 Subjective Subjective Interval history: Interval history: 55 y/o F with PMH of HTN, IDDM type II, HFpEF EF 55% on 08/2024, ESRD on HD TTS, presented to the hospital on 03/16/2025 due to worsening chronic BLE wounds, pain, and swelling for last 3 days. Patient complained of pain in both knees and feet, expecially on the left heel which was oozing with blood. Patient received hemodialysis session last saturday. Patient didn't had any recent trauma to any of her lower extremities. Denies chest pain, palpation, SOB, abdominal pain, N/V, fevers, or chills. Patient has been consulted for management of ESRD on HD ED course: Afebrile, HR 90, BP 158/71, satting upper 90s on room air. Negative COVID, influenza A/B. WBC 16.6, Hgb 11.1 (baseline 9.6), PLT 244. Normal coag panel. CHEM panel significant for sodium 133 around baseline, lactic acid 3.0, CRP 15.6, PRO-FRANCISCO 13.76, ESR 124. Renal function around baseline with CR 8.8, GFR 5, BUN 70, potassium of 3.5. She has anion gap of 18, likely CKD/uremia/lactic acidosis. UA negative for UTI. Preliminary right foot x-ray showed skin and soft tissue infection with possible necrosis (pending final read) Medical history: As stated above Surgical history: Surgery for cataract and kidney stones. Allergies: NKDA Medications: Pending official med rec Family history: Noncontributory Social history: Denies smoking cigarettes, drinking alcohol or using other illicit drugs ROS: All 12 systems assessed and the patient denies unless otherwise stated in HPI 03/16/2025: Labs reviewed and patient examined at the dialysis. Patient complained of worsening discomfort on her feet. Blood was still oozing on her left heel. Cr: 8.8, BUN: 70, eGFR: 5, Hgb: 11.1 MCV: 90. Patient received hemodialysis today. 03/17/2025: Labs reviewed and patient examined at the bedside. Patient noted her pain on both knees has decreased considerably. Patient is continuing to get wound care on her unroofed blisters of left heel. Today, patient had an episode of diarrhea in bed, but did not notify staff. She was observed reaching toward the stool with her fingers. Patient demonstrates limited awareness of personal hygiene and may benefit from close monitoring and assistance with self care. BP: 99/64, Cr:7.3, BUN:44, eGFR:6. Planned for hemodialysis tomorrow. Fluid restrict the patient to <1500ml per day. 03/18/2025: Labs reviewed and patient examined at the dialysis. Patient complained of significant diarrhea. Will continue to monitor her renal function. Patient received hemodialysis today. BP 134/72, Cr: 7.4, BUN: 36, eGFR: 6. 03/19/2025: Patient was seen and evaluated at bedside this morning. Labs were reviewed. No overnight events. Patient's WBC still elevated at 13.4, creatinine 5.6, BUN 29, GFR 8. Patient is declining left foot amputation and would like to try and see if the wound heals. Patient CTA did not show major filling defects on the left lower extremity vessels. Continue with hemodialysis as scheduled. Consider vascular surgery. 03/20/2025: patient currently seen in dialysis. On antibiotics for the left heel wound decubitus ulcer. CTA showed adequate circulation of the left lower extremity. Spoke to Dr. Arevalo-will see patient in next Saturday. Conveyed the same to primary team. Patient declines and left BKA. Seen by Dr. Davey Currently on antibiotics per Dr. Banuelos. 03/21/2025: Labs reviewed and patient examined at the bedside. Patient currently has no other complaints. Cr:4.4, BUN:29, eGFR:11. Pateint will continue on antibiotics. Hemodialysis session planned for next saturday. 03/22/2025: Labs reviewed and patient examined at the bedside. Complained of generalized pain. Cr:5.4, BUN:45, eGFR:9. Pateint will continue on antibiotics. Hemodialysis session planned for next saturday. 03/23/2025: Labs reviewed and patient examined at the bedside. Patient lies comfortable at bed. Denies any pain in left feet. The left feet ulcer remains grossly unchanged. Cr: 6.2, BUN: 44, eGFR:7. Patient received hemodialysis today Exam Vital Signs Temp Pulse Resp BP Pulse Ox O2 Del Method O2 Flow Rate 96.8 F 74 18 155/75 H 100 Nasal Cannula 2 03/23/25 08:11 03/23/25 08:31 03/23/25 08:11 03/23/25 08:31 03/23/25 08:11 03/23/25 06:55 03/23/25 08:11 Narrative Exam General: No acute distress, well nourished, AAO x3 Eye: PERRL, EOMI, normal conjunctiva, no scleral icterus HENT: Normocephalic, atraumatic, hearing intact to conversation at normal volume, moist oral mucosa Neck: Supple, non-tender, no JVD, no lymphadenopathy Lungs: Non-labored respirations, symmetric chest rise, Clear to auscultate bilaterally, No wheezing, rhonchi, crackles Heart: Peripheral pulses intact bilaterally, Regular Rate and Rhythm. Abdomen: Soft, non-tender, non-distended, no palpable masses Musculoskeletal: Normal range of motion and strength,No visible joint swelling, +1 pitting edema BLE. Skin: Multiple abrasions in bilateral knees and feet. Tendor on palpation. Wound on left heel covered with sterile gauze bandage. Psychiatric: Cooperative, appropriate mood and affect, Awake and alert, not agitated Neuro: Cranial nerves II-XII grossly intact. Sensations intact to light touch. Objective Labs 03/24/25 04:25 03/23/25 04:24 Labs: Laboratory Results - last 24 hr 03/22/25 03/23/25 14:55 04:24 WBC 15.1 H RBC 3.55 L Hgb 10.3 L Hct 32.4 L MCV 91 MCH 29.0 MCHC 31.8 RDW Std Deviation 55.4 H Plt Count 262 Neut % (Auto) 85 H Lymph % (Auto) 7 L [place] % (Auto) 5 Eos % (Auto) 1 Baso % (Auto) 0 Neut # (Auto) 12.8 H Lymph # (Auto) 1.1 [place] # (Auto) 0.8 Eos # (Auto) 0.1 Baso # (Auto) 0.1 Immature Gran # (Auto) 0.19 H Absolute Nucleated RBC 0.00 Immature Gran % 1 H Nucleated RBC % 0 Sodium 133 L Potassium 4.1 Chloride 96 L Carbon Dioxide 22.3 Anion Gap 15 BUN 44 H Creatinine 6.2 H* D Estim Creat Clear Calc 9.7 L eGFR 7 L* BUN/Creatinine Ratio 7 L Glucose 101 Calculated Osmolality 277 Calcium 8.7 Corrected Calcium 9.4 Phosphorus 4.8 Magnesium 2.2 Iron 27 L TIBC 189 L Iron Saturation 14 L Unsat Iron Binding 162 L Total Bilirubin 0.9 AST 14 ALT < 7 L Alkaline Phosphatase 90 Total Protein 6.8 Albumin 3.1 L Globulin 3.7 H Albumin/Globulin Ratio 0.8 L Vitamin B12 672 Folate 14.78 Quality Measures Quality Measures none Assessment & Plan Assessment Current Active Medications: Generic Name Dose Route Start Last Admin Trade Name Freq PRN Reason Stop Dose Admin Acetaminophen 650 mg 03/16/25 05:43 03/19/25 00:59 Acetaminophen 325 Mg Tablet PO 04/15/25 05:42 650 mg Q6H PRN Administration PAIN SCALE 1-3 (mild Acetaminophen 650 mg 03/16/25 05:43 03/16/25 16:39 Acetaminophen 325 Mg Tablet PO 04/15/25 05:42 650 mg Q6H PRN Administration Fever >100.4 Aspirin 81 mg 03/21/25 13:30 03/22/25 08:14 Aspirin Ec 81 Mg Tabec PO 04/20/25 13:29 81 mg QDAY LIU Administration Atorvastatin Calcium 40 mg 03/19/25 21:00 03/22/25 21:48 Atorvastatin Calcium 20 Mg Tablet PO 04/18/25 20:59 40 mg HS LIU Administration Cholestyramine Resin 1 pkt 03/18/25 09:00 03/22/25 08:14 Cholestyramine/Sucrose 1 Pkt Ea PO 04/17/25 08:59 1 pkt QDAY LIU Administration Dextrose 25 ml 03/16/25 07:31 Dextrose 50%-Water Inj 50 Ml Syringe IV 04/15/25 07:30 Q15MIN PRN BG 50-70 responsive npo pt Dextrose 50 ml 03/16/25 07:31 Dextrose 50%-Water Inj 50 Ml Syringe IV 04/15/25 07:30 Q15MIN PRN BG <50 OR BG <70 & pt unresponsive Doxycycline Hyclate 100 mg 03/17/25 21:00 03/22/25 21:48 Doxycycline 100 Mg Tablet PO 03/24/25 20:59 100 mg BID LIU Administration Glucagon 1 mg 03/16/25 07:31 Glucagon Inj 1 Mg Vial IM Q15MIN PRN BG <70, and no IV access Heparin Sodium (Porcine) 5,000 unit 03/16/25 09:00 03/22/25 21:47 Heparin Sod Inj 5000 Unit/Ml Vial SC 03/30/25 08:59 5,000 unit BID LIU Administration Albumin Human 25 gm in 100 mls @ 100 mls/min 03/16/25 07:48 03/16/25 10:45 Albuminar-25 Ivpb IV 100 mls/min PRN PRN Administration DIALYSIS Cefepime HCl 1 gm/ Sodium 50 mls @ 100 mls/hr 03/21/25 11:30 03/22/25 21:45 Chloride IV 03/28/25 11:29 100 mls/hr QDAY@2100 LIU Administration Insulin Human Lispro 0 unit 03/16/25 11:30 03/23/25 07:59 Insulin Lispro (Admelog) 1 Unit/0.01 Ml Unit SC 04/15/25 11:29 Not Given ACHS [facility] Protocol Loperamide HCl 2 mg 03/22/25 14:55 Loperamide 2 Mg Capsule PO Q1H PRN DIARRHEA Losartan Potassium 50 mg 03/23/25 09:00 Losartan Potassium 25 Mg Tablet PO 04/22/25 08:59 QDAY LIU Melatonin 3 mg 03/20/25 17:54 Melatonin 3 Mg Tablet PO 04/19/25 20:59 HS PRN insomnia Ondansetron HCl 4 mg 03/16/25 05:43 Ondansetron Inj 2 Mg/Ml Inj 2 Ml IVP 04/15/25 05:42 Q6H PRN NAUSEA OR VOMITING Protocol Plan 55-year-old female with PMHx of HTN, IDDM type II, HFpEF EF 55% on 08/2024, ESRD on HD TTS, presenting with right heel pain. Patient has been consulted to nephrology for managment of ESRD on HD #ESRD on hemodialysis. #Anemia of Chronic Kidney disease -On admission: Cr: 8.8, BUN: 70, eGFR: 5, Hgb: 11.1 MCV: 90 -The patient's hemodialysis session is Saturday, , and Saturday. -Currently, Cr: 6.2, BUN: 44, eGFR:7. -Hemodialysis sessions: 03/16, 03/18, 03/20, 03/23 Plan: -Monitor renal function -Maintain fluid restriction, avoid nephrotoxic agents when possible, renally dose medications -Strict i and o -Planned for hemodialysis session today #Lactic Acidosis Type A vs. B #left heel decubitus ulcer--surgical evaluation done. Patient with severe PVD. Might need a BKA. #IDDM #HFrEF EF 55% 08/2024 -Management per Primary Hospitalist team Thank you for allowing us to participate in the care of your patient. Assessment and plan discussed with my attending physician Dr. Marely Melchor (PGY-1)- Internal medicine resident Attending Provider Attestation/Addendum Patient seen and examined with resident physician Dr. Melchor. Note reviewed, agree with findings and recommendations. Dr. Arevalo will come and see patient today for the left heel diabetic/decubitus ulcer. Patient declines left BKA. On broad-spectrum antibiotics. I spoke to him. Patient currently seen on dialysis. Tolerating dialysis without any problems. Hemodialysis for 3 hours, 2K, ultrafiltration 2-3 L, Epogen 6000, no heparin ordered. Plan of care discussed with the dialysis nurse. Please see dialysis flowsheet for further details.
--- NOTE | 2025-03-23 09:14 | ESPR_ITS ---
<Statement entered by Yoel Dickson MD - 03/23/25 15:09> Patient seen and assessed in hospital bed during dialysis session, denies having any concerning symptoms other than itching. Itching is likely secondary to uremia; moreover, told the patient to follow-up on symptoms after dialysis is completed. Patient is also on cholestyramine which can help with itching; however, it is mostly primarily being used for diarrhea prevention. Vascular surgery is scheduled to assess the patient today 03/23 for possible need of angioplasty from narrowing of the left posterior tibial artery. Patient is in [facility] Will continue to monitor the patient for any acute changes I have personally seen and examined the patient. I agree with the resident's assessment and plan as documented below. Yoel Dickson DO PGY-2 Internal Medicine - GME Documentation for date of: 03/23/25 Subjective Subjective Interval history: No acute events overnight. Scheduled for hemodialysis today. Planned for evaluation by vascular surgeon Dr. Arevalo today for possible angioplasty. Iron, TIBC, and saturation are low, likely combination of ANSELMO and ACD secondary to ESRD, will give iron supplement x1. Consider continuing supplement outpatient. Patient was agreeable to discharge to [facility] for rehabilitation, anticipate discharge depending on decision to do or defer angioplasty. Exam Vital Signs Temp Pulse Resp BP Pulse Ox O2 Del Method O2 Flow Rate 96.8 F 76 18 127/59 L 100 Nasal Cannula 2 03/23/25 08:11 03/23/25 09:00 03/23/25 08:11 03/23/25 09:00 03/23/25 08:11 03/23/25 06:55 03/23/25 08:11 Narrative Exam Physical Exam General: Awake and in no acute distress. Mildly depressed. Appears older that actual age. HEENT: Normocephalic, atraumatic, mucous membranes moist. Heart: Regular rate and rhythm, normal S1 and S2, no murmurs. Lungs: Clear to auscultation with no wheezing or crackles. Abdomen: Soft, nondistended, nontender, positive bowel sounds. No guarding or rebound tenderness. Neurologic: Alert and oriented x3, no gross neurological deficit, and patient able to move all 4 extremities. Extremities: Left heel wound, well dressed with minimal drainage. Dressing clean dry and intact. Multiple healed ulcerations on bilateral legs and right hip. Wrinkling skin on bilateral calves, no edema bilaterally. Pedal pulses diminished bilaterally. Skin: No rash or ecchymoses. Objective Labs 03/24/25 04:25 03/24/25 04:25 Labs: Laboratory Results - last 24 hr 03/22/25 03/23/25 14:55 04:24 WBC 15.1 H RBC 3.55 L Hgb 10.3 L Hct 32.4 L MCV 91 MCH 29.0 MCHC 31.8 RDW Std Deviation 55.4 H Plt Count 262 Neut % (Auto) 85 H Lymph % (Auto) 7 L [place] % (Auto) 5 Eos % (Auto) 1 Baso % (Auto) 0 Neut # (Auto) 12.8 H Lymph # (Auto) 1.1 [place] # (Auto) 0.8 Eos # (Auto) 0.1 Baso # (Auto) 0.1 Immature Gran # (Auto) 0.19 H Absolute Nucleated RBC 0.00 Immature Gran % 1 H Nucleated RBC % 0 Sodium 133 L Potassium 4.1 Chloride 96 L Carbon Dioxide 22.3 Anion Gap 15 BUN 44 H Creatinine 6.2 H* D Estim Creat Clear Calc 9.7 L eGFR 7 L* BUN/Creatinine Ratio 7 L Glucose 101 Calculated Osmolality 277 Calcium 8.7 Corrected Calcium 9.4 Phosphorus 4.8 Magnesium 2.2 Iron 27 L TIBC 189 L Iron Saturation 14 L Unsat Iron Binding 162 L Total Bilirubin 0.9 AST 14 ALT < 7 L Alkaline Phosphatase 90 Total Protein 6.8 Albumin 3.1 L Globulin 3.7 H Albumin/Globulin Ratio 0.8 L Vitamin B12 672 Folate 14.78 Quality Measures Quality Measures none Assessment & Plan Assessment Current Active Medications: Generic Name Dose Route Start Last Admin Trade Name Freq PRN Reason Stop Dose Admin Acetaminophen 650 mg 03/16/25 05:43 03/19/25 00:59 Acetaminophen 325 Mg Tablet PO 04/15/25 05:42 650 mg Q6H PRN Administration PAIN SCALE 1-3 (mild Acetaminophen 650 mg 03/16/25 05:43 03/16/25 16:39 Acetaminophen 325 Mg Tablet PO 04/15/25 05:42 650 mg Q6H PRN Administration Fever >100.4 Aspirin 81 mg 03/21/25 13:30 03/22/25 08:14 Aspirin Ec 81 Mg Tabec PO 04/20/25 13:29 81 mg QDAY LIU Administration Atorvastatin Calcium 40 mg 03/19/25 21:00 03/22/25 21:48 Atorvastatin Calcium 20 Mg Tablet PO 04/18/25 20:59 40 mg HS LIU Administration Cholestyramine Resin 1 pkt 03/18/25 09:00 03/22/25 08:14 Cholestyramine/Sucrose 1 Pkt Ea PO 04/17/25 08:59 1 pkt QDAY LIU Administration Dextrose 25 ml 03/16/25 07:31 Dextrose 50%-Water Inj 50 Ml Syringe IV 04/15/25 07:30 Q15MIN PRN BG 50-70 responsive npo pt Dextrose 50 ml 03/16/25 07:31 Dextrose 50%-Water Inj 50 Ml Syringe IV 04/15/25 07:30 Q15MIN PRN BG <50 OR BG <70 & pt unresponsive Doxycycline Hyclate 100 mg 03/17/25 21:00 03/22/25 21:48 Doxycycline 100 Mg Tablet PO 03/24/25 20:59 100 mg BID LIU Administration Glucagon 1 mg 03/16/25 07:31 Glucagon Inj 1 Mg Vial IM Q15MIN PRN BG <70, and no IV access Heparin Sodium (Porcine) 5,000 unit 03/16/25 09:00 03/22/25 21:47 Heparin Sod Inj 5000 Unit/Ml Vial SC 03/30/25 08:59 5,000 unit BID LIU Administration Albumin Human 25 gm in 100 mls @ 100 mls/min 03/16/25 07:48 03/16/25 10:45 Albuminar-25 Ivpb IV 100 mls/min PRN PRN Administration DIALYSIS Cefepime HCl 1 gm/ Sodium 50 mls @ 100 mls/hr 03/21/25 11:30 03/22/25 21:45 Chloride IV 03/28/25 11:29 100 mls/hr QDAY@2100 LIU Administration Insulin Human Lispro 0 unit 03/16/25 11:30 03/23/25 07:59 Insulin Lispro (Admelog) 1 Unit/0.01 Ml Unit SC 04/15/25 11:29 Not Given ACHS [facility] Protocol Loperamide HCl 2 mg 03/22/25 14:55 Loperamide 2 Mg Capsule PO Q1H PRN DIARRHEA Losartan Potassium 50 mg 03/23/25 09:00 Losartan Potassium 25 Mg Tablet PO 04/22/25 08:59 QDAY LIU Melatonin 3 mg 03/20/25 17:54 Melatonin 3 Mg Tablet PO 04/19/25 20:59 HS PRN insomnia Ondansetron HCl 4 mg 03/16/25 05:43 Ondansetron Inj 2 Mg/Ml Inj 2 Ml IVP 04/15/25 05:42 Q6H PRN NAUSEA OR VOMITING Protocol Plan Patient is a 55-year-old female with PMHx of HTN, NIDDM type II with multiple complications, HFrEF EF 50-55%, ESRD on HD TTS, who presented on 03/15 for left heel pain, admitted for osteomyelitits of left leg secondary to left heel ulcer. #Osteomyelitis of left heel #Left heel ulcer #Lactic Acidosis, resolved Presented with left heel pain, with findings of soft tissue infection of the left heel. Denies trauma. Accompanied by lactic acidosis of 3.0, likely combination type B from CKD and less likely type A since no sign sepsis at this point. Blood cultures negative for 48 hours. X-ray left foot shows early osteomyelitis plantar surface of the calcaneus CT left lower extremity shows osteomyelitis calcaneus, with soft tissue infection adjacent to posterior calcaneus. Cellulitis pattern. CTA as below, left leg circulation shows no blockages. S/p 500 cc NS bolus and CFX x 1. S/p IV Zosyn and vancomycin (03/16-03/17) Plan: - Cefepime 1 g every other day with dialysis and Doxy 100 p.o. twice daily (03/18-04/26) per ID Dr. Banuelos - Consulted surgeon Dr. Davey, appreciate recommendations: abx per ID, will likely require BKA at a later time ? Wound care followinng - Consider hyperbaric oxygen chamber outpatient #Bilateral PAD of lower extremities, chronic On exam, lower extremities appeared edematous and warm to touch. Left leg more tender than right. Likely secondary to long history of uncontrolled diabetes and inconsistent medication follow up. Lower extremity duplex shows severe bilateral peripheral obstructive arterial disease, appears to be chronic, similar findings in 08/10/24. CTA abdominal aorta iliofemoral runoff shows multiple significant stenoses involving the mid and distal right posterior tibial artery, no occlusion in the left posterior tibial artery. Patient will greatly benefit from stent placement given poor blood circulation to extremities, will likely improve chances of wound healing in addition to hyperbaric oxygen chamber. Explained to patient her circumstance and discussed risks and benefits of procedure, which patient was eventually agreeable to. Plan: - Consulted vascular surgeon Dr. Arevalo, appreciate recommendations: will evaluate patient on 03/23 for possible angioplasty - Consulted stage set up worker Dr. Barclay, appreciate recommendations: Cleared from cardiology standpoint to have vascular angiogram - CTM pulses and healing ulcers - Aspirin 81mg once daily #Diarrhea, chronic Reports at least 1 month history of loose stools, 6-7 episodes per day. Denies fevers, nausea, vomiting, hematochezia, melena. Took loperamied 2 mg prn at home without much improvement. Given chronic nature, possibly IBS versus malabsorption versus medication induced. Previously had GI workup for same chronic diarrhea. Colonoscopy 08/14/2024 showed medium polyp on proximal ascending colon and hemorrhoids but otherwise unremarkable. Biopsies were negative for microscopic colitis and dysplasia. Negative for Campylobacter, E coli Shiga tox, Salmonella, Shigella. Giardia negative. Note, stool calprotectin and Giardia were negative back in August 2024. Plan: - Cholestyramine 4g daily - Loperamide 2 mg prn - Pending calprotectin - Follow-up TTG - CTM bowel movements or signs of infection - Recommend outpatient stool studies work up #ESRD on HD TTS Last hemodialysis on Saturday, renal panel appears at baseline. Follows Dr. Yap outpatient. Dialysis sessions: 03/16 (-3.2L), 03/18 (-3.4L), 03/20 (-3.0 L), 03/23 ? [employer] Dr. Yap consulted, appreciate recommendations ? TTS HD schedule #Normocytic anemia Hgb baseline -11. Iron panel showed low iron, TIBC, and saturation. Likely combination of ANSELMO and anemia of chronic disease secondary to renal failure. Vit B12 and folate WNL. - Iron supplement x1 - Consider starting on iron supplement outpatient, may defer in setting of osteomyelitis - HD as above #Hx of NIDDM A1c 7.1 from 08/2024. Glucose 152 on admission. A1c 7.7 on 03/16. ? INSULIN sliding scale ? Accu-Cheks #HFrEF EF 50-55% (03/17/25) #Grade I diastolic dysfunction Echo 08/2024: EF 55%. Hypokinetic anterior septal wall motion. RV is mildly dilated with moderately decreased systolic function. Estimated RVSP, 47mmHg. RAP 15. Mild MR. Has bilateral lower extremity edema likely combination HFpEF and ESRD. Echo 03/17 shows EF 50 to 55%, grade 1 diastolic dysfunction and hypokinetic anterior septal wall motion. RV mildly dilated with moderately decreased systolic function. Normal LV size. Mild MR. Moderate TR and mild PI. S/p 500 cc IVF for above-mentioned lactic acidosis. No signs or symptoms of CHF exacerbation. Plan: ? Hemodialysis as above - Avoid aggressive fluid rescusitation #Depression Endorses more frequent days of fatigue and trouble falling asleep over the past 2 weeks however reports she still enjoys cooking for her family and is eating well. Denies thoughts of self-harm. Patient appeared to be very discouraged during this admission, likely secondary to discussions of possible amputation and vascular surgery procedure. Per above, patient likely has mild to moderate depression. Plan: - Not interested in starting therapy/counseling or medication for mood management at this time Health Maintenance Disposition: management of left foot diabetic ulcer and osteomyelitis DVT prophylaxis: heparin GI prophylaxis: protonix Bowel: Senna Diet: Carb consistent CODE STATUS: FULL Patient plan of care was discussed with the resident, Dr. Dickson, and the attending Dr. Mcdaniel. Delmis Lazcano PGY-1 Attending Provider Attestation/Addendum I have examined the patient, reviewed labs and imaging findings, discussed the case with the resident(s), and reviewed entered orders. I agree with the plan of care as outlined in this note, with these additional summaries/recommendations: Patient seen in dialysis unit. No acute overnight events. Continue IV antibiotics for osteomyelitis of left heel. Status post PICC line. Patient to be seen by vascular surgery today for severe bilateral peripheral arterial disease. Continue aspirin. In-house nephrology following for hemodialysis. Avoid nephrotoxic agents and renally dose medications. Patient has severe chronic diarrhea which has slightly improved after starting cholestyramine which we will continue. Continue insulin sliding scale for diabetes mellitus type 2. Patient updated on the plan and in agreement. All questions answered to satisfaction. Please see residents note for additional details and management. Dr. Violeta MD
[2025-03-23] MEDS: ACETAMINOPHEN 325 MG TABLET 650 MG PO (09:45)
--- NOTE | 2025-03-23 10:46 | PC.SS ---
SS followed up with Camille from [facility] who states she did not receive fax sent yesterday from SS for pt requiring IV antibiotic during dialysis session but SS did call. SS has faxed Dr. Bailey's note for IV antibiotic, per Camille's request.
--- NOTE | 2025-03-23 11:41 | PC.SS ---
Addendum entered by Sandra Mejia 03/23/25 12:12: PASRR has been sent to [facility] using [employer] [facility]. Original Note: Follow up note: SS met with pt to provide her with verbal choices for d/c to SNF. Pt has been accepted to [facility], [place], [facility], and [facility]. [facility] declined. Patient's choice is [facility]. SS spoke to Francoise from [facility] who states they can accept pt and is aware pt will require IV antibiotic during dialysis. SS spoke to Camille from [facility] who states family transports pt to dialysis T, Th, and Sat at 11-2:30pm. SS spoke to patient's son, Slick who is aware and is agreeable to [facility]. SS has spoken to Francoise from [facility] and has started insurance authorization.
--- NOTE | 2025-03-23 15:39 | PC.SS ---
SS received call from Francoise at [facility] [[email or web address]] they have received insurance authorization but are now waiting for SIN (letter of agreement).
--- NOTE | 2025-03-23 16:55 | PD.SURCONS ---
HPI Consult details Consult date: 03/23/25 Reason for consultation narrative: Gangrene left heel History of present illness: Patient is a 55-year-old female with end-stage renal disease and diabetes who sustained a pressure ulcer on the left heel that has resulted in full-thickness gangrene and deemed to be unsalvageable. The patient was reluctant to submit to a below-knee amputation until she was evaluated. A CTA with bilateral lower extremity runoff was performed that showed essentially three-vessel runoff to the foot. There is some segmental occlusive disease in the tibial arteries but there is sufficient blood flow to heal a below-knee amputation Meds Home Medications and Allergies Allergies Allergy/AdvReac Type Severity Reaction Status Date / Time No Known Allergies Allergy Verified 03/16/25 00:43 Exam Vital Signs Temp Pulse Resp BP Pulse Ox O2 Del Method O2 Flow Rate 97.8 F 68 16 160/78 H 100 Nasal Cannula 2 03/23/25 16:00 03/23/25 16:00 03/23/25 16:00 03/23/25 16:00 03/23/25 16:00 03/23/25 16:00 03/23/25 16:00 Assessment & Plan Additional Assessment Additional comments: 55-year-old patient with full-thickness gangrene of the left heel reaching down to the calcaneus. Recommendation is for left below-knee amputation Plan After speaking to the patient she seemed to agree with the plan of care. I reached out to Dr. Davey to update him and he will have another conversation with the patient
--- NOTE | 2025-03-23 17:08 | PD.SURCONS ---
HPI Consult details History of present illness: Patient is a 55-year-old female with end-stage renal disease and diabetes who sustained a pressure ulcer on the left heel that has resulted in full-thickness gangrene and deemed to be unsalvageable. The patient was reluctant to submit to a below-knee amputation until she was evaluated. A CTA with bilateral lower extremity runoff was performed that showed essentially three-vessel runoff to the foot. There is some segmental occlusive disease in the tibial arteries but there is sufficient blood flow to heal a below-knee amputation Meds Home Medications and Allergies Allergies Allergy/AdvReac Type Severity Reaction Status Date / Time No Known Allergies Allergy Verified 03/16/25 00:43 Exam Vital Signs Temp Pulse Resp BP Pulse Ox O2 Del Method O2 Flow Rate 97.8 F 68 16 160/78 H 100 Nasal Cannula 2 03/23/25 16:00 03/23/25 16:00 03/23/25 16:00 03/23/25 16:00 03/23/25 16:00 03/23/25 16:00 03/23/25 16:00 Assessment & Plan Additional Assessment Additional comments: Gangrene left heel Plan I concur with the plan for left below-knee amputation. I called Dr Davey to update him and he will go by and have another conversation with the patient as she seems to be agreeable or at least she understands the situation better
[2025-03-23] MEDS: CEFEPIME INJ 1 GM in SODIUM CHLORIDE 0.9% (Popper) 50 ML IV (20:31)
[2025-03-23] MEDS: ATORVASTATIN CALCIUM 20 MG TABLET 40 MG PO (20:31)
[2025-03-23] MEDS: ASCORBIC ACID 250 MG TABLET 500 MG PO (20:31)
[2025-03-23] MEDS: DOXYCYCLINE 100 MG TABLET PO (20:31)
[2025-03-23] MEDS: HEPARIN SOD INJ 5000 UNIT/ML VIAL SC (20:32)
[2025-03-24] VITALS (8 sets, daily range): BP systolic 129–158; BP diastolic 67–77; PULSE 69–80; RESP 10–22; TEMP 36.1–36.7; O2SAT 99–100
[2025-03-24 06:02] LABS: Basophils # (Auto) 0.1 Thou/mm3 (0.0-0.2); Basophils % (Auto) 1 % (0-2.5); Eosinophils # (Auto) 0.1 Thou/mm3 (0.0-0.5); Eosinophils % (Auto) 1 % (0-10); Hematocrit 32.4 % (36.0-46.0); Hemoglobin 10.3 g/dL (12.0-16.0); Immature Granulocytes Auto 0.15 Thou/mm3 (0.00-0.00); Lymphocytes # (Auto) 0.9 Thou/mm3 (1.0-4.8); Lymphocytes % (Auto) 6 % (10-50); Mean Corpuscular HGB Conc 31.8 g/dl (31.0-37.0); Mean Corpuscular Hemoglobin 29.4 pg (25.0-35.0); Mean Corpuscular Volume 93 fL (80-100); Monocytes # (Auto) 1.0 Thou/mm3 (0.0-0.8); Monocytes % (Auto) 7 % (0-12); Neutrophils # (Auto) 12.4 Thou/mm3 (1.8-7.7); Neutrophils % (Auto) 86 % (37-80); Nucleated Red Blood Cell # 0.00 Thou/mm3 (0.00-0.00); Nucleated Red Blood Cell % 0 /100 WBC (0); Platelet Count 258 Thou/mm3 (140-440); RDW Standard Deviation 56.4 fL (36.4-46.3); Red Blood Count 3.50 Miln/mm3 (4.00-5.20); White Blood Count 14.5 Thou/mm3 (3.6-11.0)
[2025-03-24 07:02] LABS: Alanine Aminotransferase < 7 U/L (10-49); Albumin, Serum 3.2 gm/dL (3.5-5.0); Albumin/Globulin Ratio 1.0 (1.2-2.2); Alkaline Phosphatase 103 U/L (46-116); Anion Gap 15 (7-16); Aspartate Amino Transferase 22 U/L (0-34); BUN/Creatinine Ratio 6 Ratio (12-20); Bilirubin,Total 0.8 mg/dL (0.3-1.2); Blood Urea Nitrogen 30 mg/dL (9-23); Calcium 8.4 mg/dL (8.3-10.6); Calcium (Corrected) 9.0 mg/dL (8.5-10.1); Carbon Dioxide 23.2 mMol/L (20.0-31.0); Chloride 97 mMol/L (98-107); Creatinine (Component) 4.8 mg/dL (0.6-1.3); Estimated Creatinine Clearance 12.6 mL/min (>60); Globulin 3.1 gm/dL (2.3-3.5); Glucose 112 mg/dL (74-106); Magnesium 1.9 mg/dL (1.6-2.6); Osmolality,Calculated 277 (275-295); Phosphorous 4.5 mg/dL (2.4-5.1); Potassium 3.8 mMol/L (3.4-5.1); Sodium 135 mMol/L (136-145); Total Protein 6.3 gm/dL (5.7-8.2); eGFR 10 See Note
[2025-03-24] MEDS: ASCORBIC ACID 250 MG TABLET 500 MG PO ×2 (08:10→20:16)
[2025-03-24] MEDS: ZINC SULFATE 220 MG CAPSULE PO (08:11)
[2025-03-24] MEDS: LOSARTAN POTASSIUM 25 MG TABLET 50 MG PO (08:11)
[2025-03-24] MEDS: DOXYCYCLINE 100 MG TABLET PO (08:11)
[2025-03-24] MEDS: HEPARIN SOD INJ 5000 UNIT/ML VIAL SC ×2 (08:12→20:16)
[2025-03-24] MEDS: ASPIRIN EC 81 MG TABEC PO (08:12)
[2025-03-24] MEDS: CHOLESTYRAMINE/SUCROSE 1 PKT EA PO (08:12)
--- NOTE | 2025-03-24 09:46 | PC.SS ---
Follow up note: Pt will have left below the knee amputation. SS spoke to Francoise from [facility] who states they have insurance authorization and will on 04-05-25. Francoise is aware of patient's dialysis schedule.
--- NOTE | 2025-03-24 09:57 | ESPR_ITS ---
Documentation for date of: 03/24/25 Subjective Subjective Interval history: 55 y/o F with PMH of HTN, IDDM type II, HFpEF EF 55% on 08/2024, ESRD on HD TTS, presented to the hospital on 03/16/2025 due to worsening chronic BLE wounds, pain, and swelling for last 3 days. Patient complained of pain in both knees and feet, expecially on the left heel which was oozing with blood. Patient received hemodialysis session last saturday. Patient didn't had any recent trauma to any of her lower extremities. Denies chest pain, palpation, SOB, abdominal pain, N/V, fevers, or chills. Patient has been consulted for management of ESRD on HD ED course: Afebrile, HR 90, BP 158/71, satting upper 90s on room air. Negative COVID, influenza A/B. WBC 16.6, Hgb 11.1 (baseline 9.6), PLT 244. Normal coag panel. CHEM panel significant for sodium 133 around baseline, lactic acid 3.0, CRP 15.6, PRO-FRANCISCO 13.76, ESR 124. Renal function around baseline with CR 8.8, GFR 5, BUN 70, potassium of 3.5. She has anion gap of 18, likely CKD/uremia/lactic acidosis. UA negative for UTI. Preliminary right foot x-ray showed skin and soft tissue infection with possible necrosis (pending final read) Medical history: As stated above Surgical history: Surgery for cataract and kidney stones. Allergies: NKDA Medications: Pending official med rec Family history: Noncontributory Social history: Denies smoking cigarettes, drinking alcohol or using other illicit drugs ROS: All 12 systems assessed and the patient denies unless otherwise stated in HPI 03/16/2025: Labs reviewed and patient examined at the dialysis. Patient complained of worsening discomfort on her feet. Blood was still oozing on her left heel. Cr: 8.8, BUN: 70, eGFR: 5, Hgb: 11.1 MCV: 90. Patient received hemodialysis today. 03/17/2025: Labs reviewed and patient examined at the bedside. Patient noted her pain on both knees has decreased considerably. Patient is continuing to get wound care on her unroofed blisters of left heel. Today, patient had an episode of diarrhea in bed, but did not notify staff. She was observed reaching toward the stool with her fingers. Patient demonstrates limited awareness of personal hygiene and may benefit from close monitoring and assistance with self care. BP: 99/64, Cr:7.3, BUN:44, eGFR:6. Planned for hemodialysis tomorrow. Fluid restrict the patient to <1500ml per day. 03/18/2025: Labs reviewed and patient examined at the dialysis. Patient complained of significant diarrhea. Will continue to monitor her renal function. Patient received hemodialysis today. BP 134/72, Cr: 7.4, BUN: 36, eGFR: 6. 03/19/2025: Patient was seen and evaluated at bedside this morning. Labs were reviewed. No overnight events. Patient's WBC still elevated at 13.4, creatinine 5.6, BUN 29, GFR 8. Patient is declining left foot amputation and would like to try and see if the wound heals. Patient CTA did not show major filling defects on the left lower extremity vessels. Continue with hemodialysis as scheduled. Consider vascular surgery. 03/20/2025: patient currently seen in dialysis. On antibiotics for the left heel wound decubitus ulcer. CTA showed adequate circulation of the left lower extremity. Spoke to Dr. Arevalo-will see patient in next Saturday. Conveyed the same to primary team. Patient declines and left BKA. Seen by Dr. Davey Currently on antibiotics per Dr. Banuelos. 03/21/2025: Labs reviewed and patient examined at the bedside. Patient currently has no other complaints. Cr:4.4, BUN:29, eGFR:11. Pateint will continue on antibiotics. Hemodialysis session planned for next saturday. 03/22/2025: Labs reviewed and patient examined at the bedside. Complained of generalized pain. Cr:5.4, BUN:45, eGFR:9. Pateint will continue on antibiotics. Hemodialysis session planned for next saturday. 03/23/2025: Labs reviewed and patient examined at the bedside. Patient lies comfortable at bed. Denies any pain in left feet. The left feet ulcer remains grossly unchanged. Cr: 6.2, BUN: 44, eGFR:7. Patient received hemodialysis today 03/24/2025: Labs reviewed and patient examined at the bedside. Patient being evaluated for possible below knee amputation. Current plan remains unchanged. BUN:30, Cr:4.8, eGFR:10. Planned for hemodialysis tomorrow. Exam Vital Signs Temp Pulse Resp BP Pulse Ox O2 Del Method O2 Flow Rate 97.5 F 71 14 158/77 H 99 Nasal Cannula 2 03/24/25 08:00 03/24/25 08:11 03/24/25 08:00 03/24/25 08:11 03/24/25 08:00 03/24/25 08:00 03/24/25 08:00 Narrative Exam General: No acute distress, well nourished, AAO x3 Eye: PERRL, EOMI, normal conjunctiva, no scleral icterus HENT: Normocephalic, atraumatic, hearing intact to conversation at normal volume, moist oral mucosa Neck: Supple, non-tender, no JVD, no lymphadenopathy Lungs: Non-labored respirations, symmetric chest rise, Clear to auscultate bilaterally, No wheezing, rhonchi, crackles Heart: Peripheral pulses intact bilaterally, Regular Rate and Rhythm. Abdomen: Soft, non-tender, non-distended, no palpable masses Musculoskeletal: Normal range of motion and strength,No visible joint swelling, +1 pitting edema BLE. Skin: Multiple abrasions in bilateral knees and feet. Tendor on palpation. Wound on left heel covered with sterile gauze bandage. Psychiatric: Cooperative, appropriate mood and affect, Awake and alert, not agitated Neuro: Cranial nerves II-XII grossly intact. Sensations intact to light touch. Objective Labs 03/26/25 04:21 03/25/25 05:25 Labs: Laboratory Results - last 24 hr 03/24/25 04:25 WBC 14.5 H RBC 3.50 L Hgb 10.3 L Hct 32.4 L MCV 93 MCH 29.4 MCHC 31.8 RDW Std Deviation 56.4 H Plt Count 258 Neut % (Auto) 86 H Lymph % (Auto) 6 L [place] % (Auto) 7 Eos % (Auto) 1 Baso % (Auto) 1 Neut # (Auto) 12.4 H Lymph # (Auto) 0.9 L [place] # (Auto) 1.0 H Eos # (Auto) 0.1 Baso # (Auto) 0.1 Immature Gran # (Auto) 0.15 H Absolute Nucleated RBC 0.00 Immature Gran % 1 H Nucleated RBC % 0 Sodium 135 L Potassium 3.8 Chloride 97 L Carbon Dioxide 23.2 Anion Gap 15 BUN 30 H Creatinine 4.8 H* D Estim Creat Clear Calc 12.6 L eGFR 10 L* BUN/Creatinine Ratio 6 L Glucose 112 H Calculated Osmolality 277 Calcium 8.4 Corrected Calcium 9.0 Phosphorus 4.5 Magnesium 1.9 Total Bilirubin 0.8 AST 22 ALT < 7 L Alkaline Phosphatase 103 Total Protein 6.3 Albumin 3.2 L Globulin 3.1 Albumin/Globulin Ratio 1.0 L Quality Measures Quality Measures none Assessment & Plan Assessment Current Active Medications: Generic Name Dose Route Start Last Admin Trade Name Freq PRN Reason Stop Dose Admin Acetaminophen 650 mg 03/16/25 05:43 03/23/25 09:45 Acetaminophen 325 Mg Tablet PO 04/15/25 05:42 650 mg Q6H PRN Administration PAIN SCALE 1-3 (mild Acetaminophen 650 mg 03/16/25 05:43 03/16/25 16:39 Acetaminophen 325 Mg Tablet PO 04/15/25 05:42 650 mg Q6H PRN Administration Fever >100.4 Hydrocodone Bitart/Acetaminophen 1 tab 03/24/25 08:09 Hydrocodone/Apap 5/325 Tablet PO 03/29/25 08:08 Q8HR PRN PAIN SCALE 4-6 (Moderate Hydrocodone Bitart/Acetaminophen 1 tab 03/24/25 08:09 Hydrocodone/Apap 7.5/325 Tablet PO 03/29/25 08:08 Q8HR PRN Pain 7-10 Ascorbic Acid 500 mg 03/23/25 21:00 03/24/25 08:10 Ascorbic Acid 250 Mg Tablet PO 04/22/25 20:59 500 mg BID LIU Administration Aspirin 81 mg 03/21/25 13:30 03/24/25 08:12 Aspirin Ec 81 Mg Tabec PO 04/20/25 13:29 81 mg QDAY LIU Administration Atorvastatin Calcium 40 mg 03/19/25 21:00 03/23/25 20:31 Atorvastatin Calcium 20 Mg Tablet PO 04/18/25 20:59 40 mg HS LIU Administration Cholestyramine Resin 1 pkt 03/18/25 09:00 03/24/25 08:12 Cholestyramine/Sucrose 1 Pkt Ea PO 04/17/25 08:59 1 pkt QDAY LIU Administration Dextrose 25 ml 03/16/25 07:31 Dextrose 50%-Water Inj 50 Ml Syringe IV 04/15/25 07:30 Q15MIN PRN BG 50-70 responsive npo pt Dextrose 50 ml 03/16/25 07:31 Dextrose 50%-Water Inj 50 Ml Syringe IV 04/15/25 07:30 Q15MIN PRN BG <50 OR BG <70 & pt unresponsive Doxycycline Hyclate 100 mg 03/17/25 21:00 03/24/25 08:11 Doxycycline 100 Mg Tablet PO 03/24/25 20:59 100 mg BID LIU Administration Glucagon 1 mg 03/16/25 07:31 Glucagon Inj 1 Mg Vial IM Q15MIN PRN BG <70, and no IV access Heparin Sodium (Porcine) 5,000 unit 03/16/25 09:00 03/24/25 08:12 Heparin Sod Inj 5000 Unit/Ml Vial SC 03/30/25 08:59 5,000 unit BID LIU Administration Albumin Human 25 gm in 100 mls @ 100 mls/min 03/16/25 07:48 03/16/25 10:45 Albuminar-25 Ivpb IV 100 mls/min PRN PRN Administration DIALYSIS Cefepime HCl 1 gm/ Sodium 50 mls @ 100 mls/hr 03/21/25 11:30 03/23/25 20:31 Chloride IV 03/28/25 11:29 100 mls/hr QDAY@2100 LIU Administration Insulin Human Lispro 0 unit 03/16/25 11:30 03/24/25 08:13 Insulin Lispro (Admelog) 1 Unit/0.01 Ml Unit SC 04/15/25 11:29 Not Given ACHS [facility] Protocol Loperamide HCl 2 mg 03/22/25 14:55 Loperamide 2 Mg Capsule PO Q1H PRN DIARRHEA Losartan Potassium 50 mg 03/23/25 09:00 03/24/25 08:11 Losartan Potassium 25 Mg Tablet PO 04/22/25 08:59 50 mg QDAY LIU Administration Melatonin 3 mg 03/20/25 17:54 Melatonin 3 Mg Tablet PO 04/19/25 20:59 HS PRN insomnia Ondansetron HCl 4 mg 03/16/25 05:43 Ondansetron Inj 2 Mg/Ml Inj 2 Ml IVP 04/15/25 05:42 Q6H PRN NAUSEA OR VOMITING Protocol Zinc Sulfate 220 mg 03/24/25 09:00 03/24/25 08:11 Zinc Sulfate 220 Mg Capsule PO 04/23/25 08:59 220 mg QDAY LIU Administration Plan 55-year-old female with PMHx of HTN, IDDM type II, HFpEF EF 55% on 08/2024, ESRD on HD TTS, presenting with right heel pain. Patient has been consulted to nephrology for managment of ESRD on HD #ESRD on hemodialysis. #Anemia of Chronic Kidney disease -On admission: Cr: 8.8, BUN: 70, eGFR: 5, Hgb: 11.1 MCV: 90 -The patient's hemodialysis session is Saturday, , and Saturday. -Currently, BUN:30, Cr:4.8, eGFR:10 -Hemodialysis sessions: 03/16, 03/18, 03/20, 03/23 Plan: -Monitor renal function -Maintain fluid restriction, avoid nephrotoxic agents when possible, renally dose medications -Strict i and o -Planned for hemodialysis session tomorrow #Osteomyelitis of left heel #Left heel ulcer #Lactic Acidosis, resolved #Bilateral PAD of lower extremities, chronic #Diarrhea, chronic #Normocytic anemia #Hx of NIDDM #HFrEF EF 50-55% (03/17/25) #Grade I diastolic dysfunction #Depression -Management per Primary Hospitalist team Thank you for allowing us to participate in the care of your patient. Assessment and plan discussed with my attending physician Dr. Marely Melchor (PGY-1)- Internal medicine resident Attending Provider Attestation/Addendum Patient seen and examined with resident physician Dr. Melchor. Note reviewed, agree with findings and recommendations. Dr. Arevalo discussed with patient and she agreed for left BKA. Patient will be going for left BKA tomorrow. On broad-spectrum antibiotics. Patient do not need extra session today. Next dialysis will be scheduled for Saturday.
--- NOTE | 2025-03-24 10:22 | ESPR_ITS ---
<Statement entered by Yoel Dickson MD - 03/24/25 15:51> Patient seen and examined in hospital bed denies having any concerning symptoms at this time. Vascular surgeon was able to speak with patient came to an agreement on left BKA. General surgeon is aware of the patient's decision and will reinstate conversation. Expecting left BKA tentatively scheduled for 03/25. Patient will need physical therapy after the surgery and likely placement into a SNF. Will continue monitor the patient for any acute changes and dialysis will be completed on 03/25 with nephrology. I have personally seen and examined the patient. I agree with the resident's assessment and plan as documented below. Yoel Dickson, DO PGY-2 Internal Medicine - [facility] Documentation for date of: 03/24/25 Subjective Subjective Interval history: No acute overnight events. No new complaints. Was seen by vascular surgeon Dr. Arevalo yesterday, recommended BKA. Re-discussed risks and benefits of operation given her condition, unlikely that osteomyelitis will improve solely on antibiotics. After much thought and discussion, patient was agreeable to left BKA per surgeon, plan for procedure tomorrow. Hemodialysis scheduled for tomorrow. Anticipate discharge after operation to SNF. Exam Vital Signs Temp Pulse Resp BP Pulse Ox O2 Del Method O2 Flow Rate 97.5 F 71 14 158/77 H 99 Nasal Cannula 2 03/24/25 08:00 03/24/25 08:11 03/24/25 08:00 03/24/25 08:11 03/24/25 08:00 03/24/25 08:00 03/24/25 08:00 Narrative Exam Physical Exam General: Awake and in no acute distress. Mildly depressed. Appears older that actual age. HEENT: Normocephalic, atraumatic, mucous membranes moist. Heart: Regular rate and rhythm, normal S1 and S2, no murmurs. Lungs: Clear to auscultation with no wheezing or crackles. Abdomen: Soft, nondistended, nontender, positive bowel sounds. No guarding or rebound tenderness. Neurologic: Alert and oriented x3, no gross neurological deficit, and patient able to move all 4 extremities. Extremities: Left heel wound, well dressed with minimal drainage. Dressing clean dry and intact. Multiple healed ulcerations on bilateral legs and right hip. Wrinkling skin on bilateral calves, no edema bilaterally. Pedal pulses diminished bilaterally. Skin: No rash or ecchymoses. Objective Labs 03/25/25 05:25 03/25/25 05:25 Labs: Laboratory Results - last 24 hr 03/24/25 04:25 WBC 14.5 H RBC 3.50 L Hgb 10.3 L Hct 32.4 L MCV 93 MCH 29.4 MCHC 31.8 RDW Std Deviation 56.4 H Plt Count 258 Neut % (Auto) 86 H Lymph % (Auto) 6 L Anderson % (Auto) 7 Eos % (Auto) 1 Baso % (Auto) 1 Neut # (Auto) 12.4 H Lymph # (Auto) 0.9 L Anderson # (Auto) 1.0 H Eos # (Auto) 0.1 Baso # (Auto) 0.1 Immature Gran # (Auto) 0.15 H Absolute Nucleated RBC 0.00 Immature Gran % 1 H Nucleated RBC % 0 Sodium 135 L Potassium 3.8 Chloride 97 L Carbon Dioxide 23.2 Anion Gap 15 BUN 30 H Creatinine 4.8 H* D Estim Creat Clear Calc 12.6 L eGFR 10 L* BUN/Creatinine Ratio 6 L Glucose 112 H Calculated Osmolality 277 Calcium 8.4 Corrected Calcium 9.0 Phosphorus 4.5 Magnesium 1.9 Total Bilirubin 0.8 AST 22 ALT < 7 L Alkaline Phosphatase 103 Total Protein 6.3 Albumin 3.2 L Globulin 3.1 Albumin/Globulin Ratio 1.0 L Quality Measures Quality Measures none Assessment & Plan Assessment Current Active Medications: Generic Name Dose Route Start Last Admin Trade Name Redq PRN Reason Stop Dose Admin Acetaminophen 650 mg 03/16/25 05:43 03/23/25 09:45 Acetaminophen 325 Mg Tablet PO 04/15/25 05:42 650 mg Q6H PRN Administration PAIN SCALE 1-3 (mild Acetaminophen 650 mg 03/16/25 05:43 03/16/25 16:39 Acetaminophen 325 Mg Tablet PO 04/15/25 05:42 650 mg Q6H PRN Administration Fever >100.4 Hydrocodone Bitart/Acetaminophen 1 tab 03/24/25 08:09 Hydrocodone/Apap 5/325 Tablet PO 03/29/25 08:08 Q8HR PRN PAIN SCALE 4-6 (Moderate Hydrocodone Bitart/Acetaminophen 1 tab 03/24/25 08:09 Hydrocodone/Apap 7.5/325 Tablet PO 03/29/25 08:08 Q8HR PRN Pain 7-10 Ascorbic Acid 500 mg 03/23/25 21:00 03/24/25 08:10 Ascorbic Acid 250 Mg Tablet PO 04/22/25 20:59 500 mg BID LIU Administration Aspirin 81 mg 03/21/25 13:30 03/24/25 08:12 Aspirin Ec 81 Mg Tabec PO 04/20/25 13:29 81 mg QDAY LIU Administration Atorvastatin Calcium 40 mg 03/19/25 21:00 03/23/25 20:31 Atorvastatin Calcium 20 Mg Tablet PO 04/18/25 20:59 40 mg HS LIU Administration Cholestyramine Resin 1 pkt 03/18/25 09:00 03/24/25 08:12 Cholestyramine/Sucrose 1 Pkt Ea PO 04/17/25 08:59 1 pkt QDAY LIU Administration Dextrose 25 ml 03/16/25 07:31 Dextrose 50%-Water Inj 50 Ml Syringe IV 04/15/25 07:30 Q15MIN PRN BG 50-70 responsive npo pt Dextrose 50 ml 03/16/25 07:31 Dextrose 50%-Water Inj 50 Ml Syringe IV 04/15/25 07:30 Q15MIN PRN BG <50 OR BG <70 & pt unresponsive Doxycycline Hyclate 100 mg 03/17/25 21:00 03/24/25 08:11 Doxycycline 100 Mg Tablet PO 03/24/25 20:59 100 mg BID LIU Administration Glucagon 1 mg 03/16/25 07:31 Glucagon Inj 1 Mg Vial IM Q15MIN PRN BG <70, and no IV access Heparin Sodium (Porcine) 5,000 unit 03/16/25 09:00 03/24/25 08:12 Heparin Sod Inj 5000 Unit/Ml Vial SC 03/30/25 08:59 5,000 unit BID LIU Administration Albumin Human 25 gm in 100 mls @ 100 mls/min 03/16/25 07:48 03/16/25 10:45 Albuminar-25 Ivpb IV 100 mls/min PRN PRN Administration DIALYSIS Cefepime HCl 1 gm/ Sodium 50 mls @ 100 mls/hr 03/21/25 11:30 03/23/25 20:31 Chloride IV 03/28/25 11:29 100 mls/hr QDAY@2100 LIU Administration Insulin Human Lispro 0 unit 03/16/25 11:30 03/24/25 08:13 Insulin Lispro (Admelog) 1 Unit/0.01 Ml Unit SC 04/15/25 11:29 Not Given ACHS LIU Protocol Loperamide HCl 2 mg 03/22/25 14:55 Loperamide 2 Mg Capsule PO Q1H PRN DIARRHEA Losartan Potassium 50 mg 03/23/25 09:00 03/24/25 08:11 Losartan Potassium 25 Mg Tablet PO 04/22/25 08:59 50 mg QDAY LIU Administration Melatonin 3 mg 03/20/25 17:54 Melatonin 3 Mg Tablet PO 04/19/25 20:59 HS PRN insomnia Ondansetron HCl 4 mg 03/16/25 05:43 Ondansetron Inj 2 Mg/Ml Inj 2 Ml IVP 04/15/25 05:42 Q6H PRN NAUSEA OR VOMITING Protocol Zinc Sulfate 220 mg 03/24/25 09:00 03/24/25 08:11 Zinc Sulfate 220 Mg Capsule PO 04/23/25 08:59 220 mg QDAY LIU Administration Plan Patient is a 55-year-old female with PMHx of HTN, NIDDM type II with multiple complications, HFrEF EF 50-55%, ESRD on HD TTS, who presented on 03/15 for left heel pain, admitted for osteomyelitits of left leg secondary to left heel ulcer. #Osteomyelitis of left heel #Left heel ulcer #Lactic Acidosis, resolved Presented with left heel pain, with findings of soft tissue infection of the left heel. Denies trauma. Accompanied by lactic acidosis of 3.0, likely combination type B from CKD and less likely type A since no sign sepsis at this point. Blood cultures negative for 48 hours. X-ray left foot shows early osteomyelitis plantar surface of the calcaneus CT left lower extremity shows osteomyelitis calcaneus, with soft tissue infection adjacent to posterior calcaneus. Cellulitis pattern. CTA as below, left leg circulation shows no blockages. S/p 500 cc NS bolus and CFX x 1. S/p IV Zosyn and vancomycin (03/16-03/17) Plan: - Cefepime 1 g every other day with dialysis and Doxy 100 p.o. twice daily (03/18-04/26) per ID Dr. Banuelos, will discontinue s/p BKA - Consulted surgeon Dr. Davey, appreciate recommendations: patient now agreeable to BKA ? Wound care followinng #Bilateral PAD of lower extremities, chronic On exam, lower extremities appeared edematous and warm to touch. Left leg more tender than right. Likely secondary to long history of uncontrolled diabetes and inconsistent medication follow up. Lower extremity duplex shows severe bilateral peripheral obstructive arterial disease, appears to be chronic, similar findings in 08/10/24. CTA abdominal aorta iliofemoral runoff shows multiple significant stenoses involving the mid and distal right posterior tibial artery, no occlusion in the left posterior tibial artery. Patient will greatly benefit from stent placement given poor blood circulation to extremities, will likely improve chances of wound healing in addition to hyperbaric oxygen chamber. Explained to patient her circumstance and discussed risks and benefits of procedure, which patient was eventually agreeable to. Plan: - Consulted vascular surgeon Dr. Arevalo, appreciate recommendations: recommend BKA - Consulted brush fabrication supervisor Dr. Barclay, appreciate recommendations: Cleared from cardiology standpoint for BKA - CTM pulses and healing ulcers - Aspirin 81mg once daily #Diarrhea, chronic Reports at least 1 month history of loose stools, 6-7 episodes per day. Denies fevers, nausea, vomiting, hematochezia, melena. Took loperamied 2 mg prn at home without much improvement. Given chronic nature, possibly IBS versus malabsorption versus medication induced. Previously had GI workup for same chronic diarrhea. Colonoscopy 08/14/2024 showed medium polyp on proximal ascending colon and hemorrhoids but otherwise unremarkable. Biopsies were negative for microscopic colitis and dysplasia. Negative for Campylobacter, E coli Shiga tox, Salmonella, Shigella. Giardia negative. Note, stool calprotectin and Giardia were negative back in August 2024. Plan: - Cholestyramine 4g daily - Loperamide 2 mg prn - Follow-up TTG and stool calprotectin - CTM bowel movements or signs of infection - Recommend outpatient stool studies work up #ESRD on HD TTS Last hemodialysis on Saturday, renal panel appears at baseline. Follows Dr. Yap outpatient. Dialysis sessions: 03/16 (-3.2L), 03/18 (-3.4L), 03/20 (-3.0 L), 03/23 ? Enrollment Management Vice President Dr. Yap consulted, appreciate recommendations ? TTS HD schedule #Normocytic anemia Hgb baseline 10-11. Iron panel showed low iron, TIBC, and saturation. Likely combination of ANSELMO and anemia of chronic disease secondary to renal failure. Vit B12 and folate WNL. - Iron supplement x1 - Consider starting on iron supplement outpatient, may defer in setting of osteomyelitis - HD as above #Hx of NIDDM A1c 7.1 from 08/2024. Glucose 152 on admission. A1c 7.7 on 03/16. ? INSULIN sliding scale ? Accu-Cheks #HFrEF EF 50-55% (03/17/25) #Grade I diastolic dysfunction Echo 08/2024: EF 55%. Hypokinetic anterior septal wall motion. RV is mildly dilated with moderately decreased systolic function. Estimated RVSP, 47mmHg. RAP 15. Mild MR. Has bilateral lower extremity edema likely combination HFpEF and ESRD. Echo 03/17 shows EF 50 to 55%, grade 1 diastolic dysfunction and hypokinetic anterior septal wall motion. RV mildly dilated with moderately decreased systolic function. Normal LV size. Mild MR. Moderate TR and mild PI. S/p 500 cc IVF for above-mentioned lactic acidosis. No signs or symptoms of CHF exacerbation. Plan: ? Hemodialysis as above - Avoid aggressive fluid rescusitation #Depression Endorses more frequent days of fatigue and trouble falling asleep over the past 2 weeks however reports she still enjoys cooking for her family and is eating well. Denies thoughts of self-harm. Patient appeared to be very discouraged during this admission, likely secondary to discussions of possible amputation and vascular surgery procedure. Per above, patient likely has mild to moderate depression. Plan: - Not interested in starting therapy/counseling or medication for mood management at this time Health Maintenance Disposition: management of left foot diabetic ulcer and osteomyelitis DVT prophylaxis: heparin GI prophylaxis: protonix Bowel: Senna Diet: Carb consistent CODE STATUS: FULL Patient plan of care was discussed with the resident, Dr. Dickson, and the attending Dr. Mcdaniel. Delmis Lazcano PGY-1 Attending Provider Attestation/Addendum I have examined the patient, reviewed labs and imaging findings, discussed the case with the resident(s), and reviewed entered orders. I agree with the plan of care as outlined in this note, with these additional summaries/recommendations: Patient seen at bedside. No acute overnight events. She reports her pain is currently controlled. She was seen by vascular surgery who is in agreement with BKA. Topic was discussed again with patient and she proceed with BKA. We will notify general surgery. Continue wound care. Continue tight glycemic control. Leukocytosis improving. She reports near resolution of diarrhea. In-house nephrology following for end-stage renal disease. Renally dose medications and avoid nephrotoxic agents. Hold chemical anticoagulation in anticipation of amputation. Patient updated on the plan and in agreement. All questions answered to satisfaction. Please see residents note for additional details and management. Dr. Violeta MD
[2025-03-24] MEDS: INSULIN LISPRO (AdmeLOG) 1 UNIT/0.01 ML UNIT SC (11:32)
--- NOTE | 2025-03-24 12:13 | PD.SURPROG ---
Documentation for date of: 03/24/25 Subjective Subjective Narrative: Patient is seen and examined. She is complaining of left foot pain Exam Vital Signs Temp Pulse Resp BP Pulse Ox O2 Del Method O2 Flow Rate 97.5 F 71 14 158/77 H 99 Nasal Cannula 2 03/24/25 08:00 03/24/25 08:11 03/24/25 08:00 03/24/25 08:11 03/24/25 08:00 03/24/25 08:00 03/24/25 08:00 Constitutional Constitutional: no acute distress Routine Extremities Exam Comments: Necrotic skin and soft tissue of left heel Assessment & Plan Assessment Additional comments: Osteomyelitis and necrosis of left heel. Patient has elected to proceed with left below the knee amputation Plan Will plan for left below the knee amputation tomorrow. Risks include but not limited to infection, bleeding, injury to surround neurovascular structures, chronic nonhealing wound, possible infection and or necrosis of the amputation stump, pneumonia, blood clot, heart attack, stroke and discussed with the patient. Benefits and alternatives explained to her, all her questions answered, she agreed and consented to proceed with the operation.
[2025-03-24] MEDS: ATORVASTATIN CALCIUM 20 MG TABLET 40 MG PO (20:16)
[2025-03-24] MEDS: CEFEPIME INJ 1 GM in SODIUM CHLORIDE 0.9% (Popper) 50 ML IV (20:16)
[2025-03-25] VITALS (14 sets, daily range): BP systolic 126–168; BP diastolic 55–84; PULSE 73–89; RESP 12–96; TEMP 36.2–36.7; O2SAT 94–100; BMI 29.0
--- NOTE | 2025-03-25 05:16 | PC.NURSE ---
pt endorsing she does not want to sign consent until she sees her foot, showed patient her foot and she explains she does not want to sign consent yet she wants to think about it a little more.
[2025-03-25 06:00] LABS: Basophils # (Auto) 0.1 Thou/mm3 (0.0-0.2); Basophils % (Auto) 1 % (0-2.5); Eosinophils # (Auto) 0.0 Thou/mm3 (0.0-0.5); Eosinophils % (Auto) 0 % (0-10); Hematocrit 31.4 % (36.0-46.0); Hemoglobin 10.1 g/dL (12.0-16.0); Immature Granulocytes Auto 0.08 Thou/mm3 (0.00-0.00); Lymphocytes # (Auto) 1.0 Thou/mm3 (1.0-4.8); Lymphocytes % (Auto) 9 % (10-50); Mean Corpuscular HGB Conc 32.2 g/dl (31.0-37.0); Mean Corpuscular Hemoglobin 28.9 pg (25.0-35.0); Mean Corpuscular Volume 90 fL (80-100); Monocytes # (Auto) 0.9 Thou/mm3 (0.0-0.8); Monocytes % (Auto) 8 % (0-12); Neutrophils # (Auto) 8.9 Thou/mm3 (1.8-7.7); Neutrophils % (Auto) 81 % (37-80); Nucleated Red Blood Cell # 0.00 Thou/mm3 (0.00-0.00); Nucleated Red Blood Cell % 0 /100 WBC (0); Platelet Count 248 Thou/mm3 (140-440); RDW Standard Deviation 55.2 fL (36.4-46.3); Red Blood Count 3.50 Miln/mm3 (4.00-5.20); White Blood Count 10.9 Thou/mm3 (3.6-11.0)
[2025-03-25 06:34] LABS: Alanine Aminotransferase < 7 U/L (10-49); Albumin, Serum 3.2 gm/dL (3.5-5.0); Albumin/Globulin Ratio 1.0 (1.2-2.2); Alkaline Phosphatase 91 U/L (46-116); Anion Gap 12 (7-16); Aspartate Amino Transferase 15 U/L (0-34); BUN/Creatinine Ratio 9 Ratio (12-20); Bilirubin,Total 1.0 mg/dL (0.3-1.2); Blood Urea Nitrogen 49 mg/dL (9-23); Calcium 8.8 mg/dL (8.3-10.6); Calcium (Corrected) 9.4 mg/dL (8.5-10.1); Carbon Dioxide 24.5 mMol/L (20.0-31.0); Chloride 98 mMol/L (98-107); Creatinine (Component) 5.7 mg/dL (0.6-1.3); Estimated Creatinine Clearance 10.6 mL/min (>60); Globulin 3.3 gm/dL (2.3-3.5); Glucose 100 mg/dL (74-106); Magnesium 1.8 mg/dL (1.6-2.6); Osmolality,Calculated 281 (275-295); Phosphorous 4.9 mg/dL (2.4-5.1); Potassium 4.0 mMol/L (3.4-5.1); Sodium 134 mMol/L (136-145); Total Protein 6.5 gm/dL (5.7-8.2); eGFR 8 See Note
[2025-03-25 06:34] LABS: Calprotectin, Stool* 56 mcg/g
[2025-03-25] MEDS: Magnesium Sulfate 2 GM Ivpb 2 GM/50 ML BAG IV (08:44)
[2025-03-25] MEDS: HEPARIN SOD INJ 5000 UNIT/ML VIAL SC (08:45)
--- NOTE | 2025-03-25 09:13 | PD.RESPRO ---
Documentation for date of: 03/25/25 Subjective Subjective Interval history: 55 y/o F with PMH of HTN, IDDM type II, HFpEF EF 55% on 08/2024, ESRD on HD TTS, presented to the hospital on 03/16/2025 due to worsening chronic BLE wounds, pain, and swelling for last 3 days. Patient complained of pain in both knees and feet, expecially on the left heel which was oozing with blood. Patient received hemodialysis session last saturday. Patient didn't had any recent trauma to any of her lower extremities. Denies chest pain, palpation, SOB, abdominal pain, N/V, fevers, or chills. Patient has been consulted for management of ESRD on HD ED course: Afebrile, HR 90, BP 158/71, satting upper 90s on room air. Negative COVID, influenza A/B. WBC 16.6, Hgb 11.1 (baseline 9.6), PLT 244. Normal coag panel. CHEM panel significant for sodium 133 around baseline, lactic acid 3.0, CRP 15.6, PRO-FRANCISCO 13.76, ESR 124. Renal function around baseline with CR 8.8, GFR 5, BUN 70, potassium of 3.5. She has anion gap of 18, likely CKD/uremia/lactic acidosis. UA negative for UTI. Preliminary right foot x-ray showed skin and soft tissue infection with possible necrosis (pending final read) Medical history: As stated above Surgical history: Surgery for cataract and kidney stones. Allergies: NKDA Medications: Pending official med rec Family history: Noncontributory Social history: Denies smoking cigarettes, drinking alcohol or using other illicit drugs ROS: All 12 systems assessed and the patient denies unless otherwise stated in HPI 03/16/2025: Labs reviewed and patient examined at the dialysis. Patient complained of worsening discomfort on her feet. Blood was still oozing on her left heel. Cr: 8.8, BUN: 70, eGFR: 5, Hgb: 11.1 MCV: 90. Patient received hemodialysis today. 03/17/2025: Labs reviewed and patient examined at the bedside. Patient noted her pain on both knees has decreased considerably. Patient is continuing to get wound care on her unroofed blisters of left heel. Today, patient had an episode of diarrhea in bed, but did not notify staff. She was observed reaching toward the stool with her fingers. Patient demonstrates limited awareness of personal hygiene and may benefit from close monitoring and assistance with self care. BP: 99/64, Cr:7.3, BUN:44, eGFR:6. Planned for hemodialysis tomorrow. Fluid restrict the patient to <1500ml per day. 03/18/2025: Labs reviewed and patient examined at the dialysis. Patient complained of significant diarrhea. Will continue to monitor her renal function. Patient received hemodialysis today. BP 134/72, Cr: 7.4, BUN: 36, eGFR: 6. 03/19/2025: Patient was seen and evaluated at bedside this morning. Labs were reviewed. No overnight events. Patient's WBC still elevated at 13.4, creatinine 5.6, BUN 29, GFR 8. Patient is declining left foot amputation and would like to try and see if the wound heals. Patient CTA did not show major filling defects on the left lower extremity vessels. Continue with hemodialysis as scheduled. Consider vascular surgery. 03/20/2025: patient currently seen in dialysis. On antibiotics for the left heel wound decubitus ulcer. CTA showed adequate circulation of the left lower extremity. Spoke to Dr. Arevalo-will see patient in next Saturday. Conveyed the same to primary team. Patient declines and left BKA. Seen by Dr. Davey Currently on antibiotics per Dr. Banuelos. 03/21/2025: Labs reviewed and patient examined at the bedside. Patient currently has no other complaints. Cr:4.4, BUN:29, eGFR:11. Pateint will continue on antibiotics. Hemodialysis session planned for next saturday. 03/22/2025: Labs reviewed and patient examined at the bedside. Complained of generalized pain. Cr:5.4, BUN:45, eGFR:9. Pateint will continue on antibiotics. Hemodialysis session planned for next saturday. 03/23/2025: Labs reviewed and patient examined at the bedside. Patient lies comfortable at bed. Denies any pain in left feet. The left feet ulcer remains grossly unchanged. Cr: 6.2, BUN: 44, eGFR:7. Patient received hemodialysis today 03/24/2025: Labs reviewed and patient examined at the bedside. Patient being evaluated for possible below knee amputation. Current plan remains unchanged. BUN:30, Cr:4.8, eGFR:10. Planned for hemodialysis tomorrow. 03/25/2025: Labs reviewed and patient examined at the bedside. Patient will received BKA surgery today. Planned for hemodialysis tomorrow and on Saturday. Plan discussed with the patient. BUN:49, Cr:5.7, eGFR:8 Exam Vital Signs Temp Pulse Resp BP Pulse Ox O2 Del Method O2 Flow Rate 97.4 F 75 16 153/82 H 100 Nasal Cannula 2 03/25/25 04:00 03/25/25 08:39 03/25/25 04:00 03/25/25 08:39 03/25/25 04:00 03/25/25 04:00 03/24/25 16:00 Narrative Exam General: No acute distress, well nourished, AAO x3 Eye: PERRL, EOMI, normal conjunctiva, no scleral icterus HENT: Normocephalic, atraumatic, hearing intact to conversation at normal volume, moist oral mucosa Neck: Supple, non-tender, no JVD, no lymphadenopathy Lungs: Non-labored respirations, symmetric chest rise, Clear to auscultate bilaterally, No wheezing, rhonchi, crackles Heart: Peripheral pulses intact bilaterally, Regular Rate and Rhythm. Abdomen: Soft, non-tender, non-distended, no palpable masses Musculoskeletal: Normal range of motion and strength,No visible joint swelling, +1 pitting edema BLE. Skin: Multiple abrasions in bilateral knees and feet. Tendor on palpation. Wound on left heel covered with sterile gauze bandage. Psychiatric: Cooperative, appropriate mood and affect, Awake and alert, not agitated Neuro: Cranial nerves II-XII grossly intact. Sensations intact to light touch. Objective Labs 03/26/25 04:21 03/25/25 05:25 Labs: Laboratory Results - last 24 hr 03/17/25 03/25/25 11:18 05:25 WBC 10.9 RBC 3.50 L Hgb 10.1 L Hct 31.4 L MCV 90 MCH 28.9 MCHC 32.2 RDW Std Deviation 55.2 H Plt Count 248 Neut % (Auto) 81 H Lymph % (Auto) 9 L Bonner % (Auto) 8 Eos % (Auto) 0 Baso % (Auto) 1 Neut # (Auto) 8.9 H Lymph # (Auto) 1.0 Bonner # (Auto) 0.9 H Eos # (Auto) 0.0 Baso # (Auto) 0.1 Immature Gran # (Auto) 0.08 H Absolute Nucleated RBC 0.00 Immature Gran % 1 H Nucleated RBC % 0 Sodium 134 L Potassium 4.0 Chloride 98 Carbon Dioxide 24.5 Anion Gap 12 BUN 49 H Creatinine 5.7 H* D Estim Creat Clear Calc 10.6 L eGFR 8 L* BUN/Creatinine Ratio 9 L Glucose 100 Calculated Osmolality 281 Calcium 8.8 Corrected Calcium 9.4 Phosphorus 4.9 Magnesium 1.8 Total Bilirubin 1.0 AST 15 ALT < 7 L Alkaline Phosphatase 91 Total Protein 6.5 Albumin 3.2 L Globulin 3.3 Albumin/Globulin Ratio 1.0 L Stool Calprotectin 56 Quality Measures Quality Measures none Assessment & Plan Assessment Current Active Medications: Generic Name Dose Route Start Last Admin Trade Name Freq PRN Reason Stop Dose Admin Acetaminophen 650 mg 03/16/25 05:43 03/23/25 09:45 Acetaminophen 325 Mg Tablet PO 04/15/25 05:42 650 mg Q6H PRN Administration PAIN SCALE 1-3 (mild Acetaminophen 650 mg 03/16/25 05:43 03/16/25 16:39 Acetaminophen 325 Mg Tablet PO 04/15/25 05:42 650 mg Q6H PRN Administration Fever >100.4 Hydrocodone Bitart/Acetaminophen 1 tab 03/24/25 08:09 Hydrocodone/Apap 5/325 Tablet PO 03/29/25 08:08 Q8HR PRN PAIN SCALE 4-6 (Moderate Hydrocodone Bitart/Acetaminophen 1 tab 03/24/25 08:09 Hydrocodone/Apap 7.5/325 Tablet PO 03/29/25 08:08 Q8HR PRN Pain 7-10 Ascorbic Acid 500 mg 03/23/25 21:00 03/25/25 08:38 Ascorbic Acid 250 Mg Tablet PO 04/22/25 20:59 Not Given BID LIU Aspirin 81 mg 03/21/25 13:30 03/25/25 08:38 Aspirin Ec 81 Mg Tabec PO 04/20/25 13:29 Not Given QDAY LIU Atorvastatin Calcium 40 mg 03/19/25 21:00 03/24/25 20:16 Atorvastatin Calcium 20 Mg Tablet PO 04/18/25 20:59 40 mg HS LIU Administration Cholestyramine Resin 1 pkt 03/18/25 09:00 03/25/25 08:38 Cholestyramine/Sucrose 1 Pkt Ea PO 04/17/25 08:59 Not Given QDAY LIU Dextrose 25 ml 03/16/25 07:31 Dextrose 50%-Water Inj 50 Ml Syringe IV 04/15/25 07:30 Q15MIN PRN BG 50-70 responsive npo pt Dextrose 50 ml 03/16/25 07:31 Dextrose 50%-Water Inj 50 Ml Syringe IV 04/15/25 07:30 Q15MIN PRN BG <50 OR BG <70 & pt unresponsive Doxycycline Hyclate 100 mg 03/25/25 09:00 03/25/25 08:38 Doxycycline 100 Mg Tablet PO 04/01/25 08:59 Not Given BID LIU Glucagon 1 mg 03/16/25 07:31 Glucagon Inj 1 Mg Vial IM Q15MIN PRN BG <70, and no IV access Heparin Sodium (Porcine) 5,000 unit 03/16/25 09:00 03/25/25 08:45 Heparin Sod Inj 5000 Unit/Ml Vial SC 03/30/25 08:59 5,000 unit BID LIU Administration Albumin Human 25 gm in 100 mls @ 100 mls/min 03/16/25 07:48 03/16/25 10:45 Albuminar-25 Ivpb IV 100 mls/min PRN PRN Administration DIALYSIS Cefepime HCl 1 gm/ Sodium 50 mls @ 100 mls/hr 03/21/25 11:30 03/24/25 20:16 Chloride IV 03/28/25 11:29 100 mls/hr QDAY@2100 LIU Administration Magnesium Sulfate 2 gm in 50 mls @ 25 mls/hr 03/25/25 07:50 03/25/25 08:44 Magnesium Sulfate Ivpb IV 03/25/25 09:49 25 mls/hr X1 ONE Administration Insulin Human Lispro 0 unit 03/16/25 11:30 03/25/25 07:33 Insulin Lispro (Admelog) 1 Unit/0.01 Ml Unit SC 04/15/25 11:29 Not Given ACHS [facility] Protocol Loperamide HCl 2 mg 03/22/25 14:55 Loperamide 2 Mg Capsule PO Q1H PRN DIARRHEA Losartan Potassium 50 mg 03/23/25 09:00 03/25/25 08:39 Losartan Potassium 25 Mg Tablet PO 04/22/25 08:59 Not Given QDAY [facility] Melatonin 3 mg 03/20/25 17:54 Melatonin 3 Mg Tablet PO 04/19/25 20:59 HS PRN insomnia Ondansetron HCl 4 mg 03/16/25 05:43 Ondansetron Inj 2 Mg/Ml Inj 2 Ml IVP 04/15/25 05:42 Q6H PRN NAUSEA OR VOMITING Protocol Zinc Sulfate 220 mg 03/24/25 09:00 03/25/25 08:39 Zinc Sulfate 220 Mg Capsule PO 04/23/25 08:59 Not Given QDAY [facility] Plan 55-year-old female with PMHx of HTN, IDDM type II, HFpEF EF 55% on 08/2024, ESRD on HD TTS, presenting with right heel pain. Patient has been consulted to nephrology for managment of ESRD on HD #ESRD on hemodialysis. #Anemia of Chronic Kidney disease -On admission: Cr: 8.8, BUN: 70, eGFR: 5, Hgb: 11.1 MCV: 90 -The patient's hemodialysis session is Saturday, , and Saturday. -Currently, BUN:49, Cr:5.7, eGFR:8 -Hemodialysis sessions: 03/16, 03/18, 03/20, 03/23 Plan: -Monitor renal function -Maintain fluid restriction, avoid nephrotoxic agents when possible, renally dose medications -Strict i and o -Planned for hemodialysis session tomorrow and on saturday. #Osteomyelitis of left heel #Left heel ulcer #Lactic Acidosis, resolved #Bilateral PAD of lower extremities, chronic #Diarrhea, chronic #Normocytic anemia #Hx of NIDDM #HFrEF EF 50-55% (03/17/25) #Grade I diastolic dysfunction #Depression -Management per Primary Hospitalist team Thank you for allowing us to participate in the care of your patient. Assessment and plan discussed with my attending physician Dr. Marely Melchor (PGY-1)- Internal medicine resident Attending Provider Attestation/Addendum Patient seen and examined with resident physician Dr. Melchor. Note reviewed, agree with findings and recommendations. Dr. Arevalo discussed with patient and she agreed for left BKA. Patient will be going for left BKA today with Dr Davey. On broad-spectrum antibiotics. Patient do not need extra session today. Next dialysis will be scheduled for Saturday.
[2025-03-25 10:47] LABS: Sed Rate (ESR) 83 mm/hr (0-30)
--- NOTE | 2025-03-25 11:51 | PC.NURSE ---
PT went for BKA at 1131
--- NOTE | 2025-03-25 11:58 | ESPR_ITS ---
<Statement entered by Adin Garcia MD - 03/25/25 18:24> No acute overnight events. Denies any other complaints. Vitals are stable. Patient is scheduled for dialysis tomorrow as she was scheduled for left BKA if any of osteomyelitis and diabetic foot. Surgery will be done by Dr. Davey around 11 AM. Will discontinue antibiotics later after consulting with Dr. Davey. I have personally seen and examined the patient, agree with residents assessment and plan Patient plan of care was discussed with the attending physician, Dr. Violeta Garcia, PGY2 Documentation for date of: 03/25/25 Subjective Subjective Interval history: No acute overnight events. Endorses dull right flank pain, no CVA tenderness, denies decreased urine output, suspect musculoskeletal soreness from sedentary condition. Will continue to monitor. Otherwise no new complaints. Bowel movements improving on cholestyramine and loperamide. Completed left BKA, performed by surgeon Dr. Davey. Tolerated procedure well. Will monitor wound healing progress. Continue pain management, as well as wound care and PT. Glucose well controlled on SSI. Plan for HD tomorrow per [facility] de[facility] Dr. Ypa. Anticipate discharge to SNF. Exam Vital Signs Temp Pulse Resp BP Pulse Ox O2 Del Method O2 Flow Rate 97.1 F 75 14 153/82 H 97 Nasal Cannula 2 03/25/25 08:00 03/25/25 08:39 03/25/25 08:00 03/25/25 08:39 03/25/25 08:00 03/25/25 08:00 03/25/25 08:00 Narrative Exam Physical Exam General: Awake and in no acute distress. Mildly depressed. Appears older that actual age. HEENT: Normocephalic, atraumatic, mucous membranes moist. Heart: Regular rate and rhythm, normal S1 and S2, no murmurs. Lungs: Clear to auscultation with no wheezing or crackles. Abdomen: Soft, nondistended, nontender, positive bowel sounds. No guarding or rebound tenderness. Neurologic: Alert and oriented x3, no gross neurological deficit, and patient able to move all 4 extremities. Extremities: Left heel wound, well dressed with minimal drainage. Dressing clean dry and intact. Multiple healed ulcerations on bilateral legs and right hip. Wrinkling skin on bilateral calves, no edema bilaterally. Pedal pulses diminished bilaterally. Skin: No rash or ecchymoses. Objective Labs 03/26/25 04:21 03/26/25 07:00 Labs: Laboratory Results - last 24 hr 03/17/25 03/25/25 11:18 05:25 WBC 10.9 RBC 3.50 L Hgb 10.1 L Hct 31.4 L MCV 90 MCH 28.9 MCHC 32.2 RDW Std Deviation 55.2 H Plt Count 248 Neut % (Auto) 81 H Lymph % (Auto) 9 L Bertie % (Auto) 8 Eos % (Auto) 0 Baso % (Auto) 1 Neut # (Auto) 8.9 H Lymph # (Auto) 1.0 Bertie # (Auto) 0.9 H Eos # (Auto) 0.0 Baso # (Auto) 0.1 Immature Gran # (Auto) 0.08 H Absolute Nucleated RBC 0.00 Immature Gran % 1 H Nucleated RBC % 0 ESR 83 H Sodium 134 L Potassium 4.0 Chloride 98 Carbon Dioxide 24.5 Anion Gap 12 BUN 49 H Creatinine 5.7 H* D Estim Creat Clear Calc 10.6 L eGFR 8 L* BUN/Creatinine Ratio 9 L Glucose 100 Calculated Osmolality 281 Calcium 8.8 Corrected Calcium 9.4 Phosphorus 4.9 Magnesium 1.8 Total Bilirubin 1.0 AST 15 ALT < 7 L Alkaline Phosphatase 91 Total Protein 6.5 Albumin 3.2 L Globulin 3.3 Albumin/Globulin Ratio 1.0 L Stool Calprotectin 56 Quality Measures Quality Measures none Assessment & Plan Assessment Current Active Medications: Generic Name Dose Route Start Last Admin Trade Name Meaghan PRN Reason Stop Dose Admin Acetaminophen 650 mg 03/16/25 05:43 03/23/25 09:45 Acetaminophen 325 Mg Tablet PO 04/15/25 05:42 650 mg Q6H PRN Administration PAIN SCALE 1-3 (mild Acetaminophen 650 mg 03/16/25 05:43 03/16/25 16:39 Acetaminophen 325 Mg Tablet PO 04/15/25 05:42 650 mg Q6H PRN Administration Fever >100.4 Hydrocodone Bitart/Acetaminophen 1 tab 03/24/25 08:09 Hydrocodone/Apap 5/325 Tablet PO 03/29/25 08:08 Q8HR PRN PAIN SCALE 4-6 (Moderate Hydrocodone Bitart/Acetaminophen 1 tab 03/24/25 08:09 Hydrocodone/Apap 7.5/325 Tablet PO 03/29/25 08:08 Q8HR PRN Pain 7-10 Ascorbic Acid 500 mg 03/23/25 21:00 03/25/25 08:38 Ascorbic Acid 250 Mg Tablet PO 04/22/25 20:59 Not Given BID LIU Aspirin 81 mg 03/21/25 13:30 03/25/25 08:38 Aspirin Ec 81 Mg Tabec PO 04/20/25 13:29 Not Given QDAY [facility] Atorvastatin Calcium 40 mg 03/19/25 21:00 03/24/25 20:16 Atorvastatin Calcium 20 Mg Tablet PO 04/18/25 20:59 40 mg HS LIU Administration Cholestyramine Resin 1 pkt 03/18/25 09:00 03/25/25 08:38 Cholestyramine/Sucrose 1 Pkt Ea PO 04/17/25 08:59 Not Given QDAY [facility] Dextrose 25 ml 03/16/25 07:31 Dextrose 50%-Water Inj 50 Ml Syringe IV 04/15/25 07:30 Q15MIN PRN BG 50-70 responsive npo pt Dextrose 50 ml 03/16/25 07:31 Dextrose 50%-Water Inj 50 Ml Syringe IV 04/15/25 07:30 Q15MIN PRN BG <50 OR BG <70 & pt unresponsive Doxycycline Hyclate 100 mg 03/25/25 09:00 03/25/25 08:38 Doxycycline 100 Mg Tablet PO 04/01/25 08:59 Not Given BID LIU Glucagon 1 mg 03/16/25 07:31 Glucagon Inj 1 Mg Vial IM Q15MIN PRN BG <70, and no IV access Heparin Sodium (Porcine) 5,000 unit 03/16/25 09:00 03/25/25 08:45 Heparin Sod Inj 5000 Unit/Ml Vial SC 03/30/25 08:59 5,000 unit BID LIU Administration Albumin Human 25 gm in 100 mls @ 100 mls/min 03/16/25 07:48 03/16/25 10:45 Albuminar-25 Ivpb IV 100 mls/min PRN PRN Administration DIALYSIS Cefepime HCl 1 gm/ Sodium 50 mls @ 100 mls/hr 03/21/25 11:30 03/24/25 20:16 Chloride IV 03/28/25 11:29 100 mls/hr QDAY@2100 [facility] Administration Insulin Human Lispro 0 unit 03/16/25 11:30 03/25/25 11:55 Insulin Lispro (Admelog) 1 Unit/0.01 Ml Unit SC 04/15/25 11:29 Not Given ACHS [facility] Protocol Loperamide HCl 2 mg 03/22/25 14:55 Loperamide 2 Mg Capsule PO Q1H PRN DIARRHEA Losartan Potassium 50 mg 03/23/25 09:00 03/25/25 08:39 Losartan Potassium 25 Mg Tablet PO 04/22/25 08:59 Not Given QDAY [facility] Melatonin 3 mg 03/20/25 17:54 Melatonin 3 Mg Tablet PO 04/19/25 20:59 HS PRN insomnia Ondansetron HCl 4 mg 03/16/25 05:43 Ondansetron Inj 2 Mg/Ml Inj 2 Ml IVP 04/15/25 05:42 Q6H PRN NAUSEA OR VOMITING Protocol Zinc Sulfate 220 mg 03/24/25 09:00 03/25/25 08:39 Zinc Sulfate 220 Mg Capsule PO 04/23/25 08:59 Not Given QDAY [facility] Plan Patient is a 55-year-old female with PMHx of HTN, NIDDM type II with multiple complications, HFpEF EF 50-55%, ESRD on HD TTS, who presented on 03/15 for left heel pain, admitted for osteomyelitits of left leg secondary to left heel ulcer. #Osteomyelitis of left heel #Left heel ulcer #S/p Left BKA #Lactic Acidosis, resolved Presented with left heel pain, with findings of soft tissue infection of the left heel. Denies trauma. Accompanied by lactic acidosis of 3.0, likely combination type B from CKD and less likely type A since no sign sepsis at this point. Blood cultures negative for 48 hours. X-ray left foot shows early osteomyelitis plantar surface of the calcaneus CT left lower extremity shows osteomyelitis calcaneus, with soft tissue infection adjacent to posterior calcaneus. Cellulitis pattern. CTA as below, left leg circulation shows no blockages. S/p 500 cc NS bolus and CFX x 1 in ED. S/p IV Zosyn and vancomycin (03/16-03/17) Plan: - Cefepime 1 g every other day with dialysis and Doxy 100 p.o. twice daily (03/18-04/26) per ID Dr. Banuelos - Consulted surgeon Dr. Davey, appreciate recommendations: Left BKA today ? Wound care following - Zinc and vit C daily to promote wound healing #Bilateral PAD of lower extremities, chronic On exam, lower extremities appeared edematous and warm to touch. Left leg more tender than right. Likely secondary to long history of uncontrolled diabetes and inconsistent medication follow up. Lower extremity duplex shows severe bilateral peripheral obstructive arterial disease, appears to be chronic, similar findings in 08/10/24. CTA abdominal aorta iliofemoral runoff shows multiple significant stenoses involving the mid and distal right posterior tibial artery, no occlusion in the left posterior tibial artery. Patient will greatly benefit from stent placement given poor blood circulation to extremities, will likely improve chances of wound healing in addition to hyperbaric oxygen chamber. Explained to patient her circumstance and discussed risks and benefits of procedure, which patient was eventually agreeable to. Plan: - Consulted vascular surgeon Dr. Arevalo, appreciate recommendations: recommend BKA - Consulted high density press operator Dr. Barclay, appreciate recommendations: Cleared from cardiology standpoint for BKA - CTM pulses and healing ulcers - Aspirin 81mg once daily #Diarrhea, chronic Reports at least 1 month history of loose stools, 6-7 episodes per day. Denies fevers, nausea, vomiting, hematochezia, melena. Took loperamied 2 mg prn at home without much improvement. Given chronic nature, possibly IBS versus malabsorption versus medication induced. Previously had GI workup for same chronic diarrhea. Colonoscopy 08/14/2024 showed medium polyp on proximal ascending colon and hemorrhoids but otherwise unremarkable. Biopsies were negative for microscopic colitis and dysplasia. Stool calprotectin 03/17 56. Negative for Campylobacter, E coli Shiga tox, Salmonella, Shigella. Giardia negative. Note, stool calprotectin and Giardia were negative back in August 2024. Plan: - Cholestyramine 4g daily - Loperamide 2 mg prn - Follow-up TTG - CTM bowel movements or signs of infection - Recommend outpatient stool studies work up #ESRD on HD TTS Last hemodialysis on Saturday, renal panel appears at baseline. Follows Dr. Yap outpatient. Dialysis sessions: 03/16 (-3.2L), 03/18 (-3.4L), 03/20 (-3.0 L), 03/23 ? Boarding Mother Dr. Yap consulted, appreciate recommendations ? TTS HD schedule - Renally dose medications - Avoid nephrotoxic agents #Normocytic anemia Hgb baseline 10-11. Iron panel showed low iron, TIBC, and saturation. Likely combination of ANSELMO and anemia of chronic disease secondary to renal failure. Vit B12 and folate WNL. - Consider starting on iron supplement outpatient, may defer in setting of osteomyelitis - HD as above #Hx of NIDDM A1c 7.1 from 08/2024. Glucose 152 on admission. A1c 7.7 on 03/16. ? INSULIN sliding scale ? Accu-Cheks #HFpEF EF 50-55% (03/17/25) #Grade I diastolic dysfunction Echo 08/2024: EF 55%. Hypokinetic anterior septal wall motion. RV is mildly dilated with moderately decreased systolic function. Estimated RVSP, 47mmHg. RAP 15. Mild MR. Has bilateral lower extremity edema likely combination HFpEF and ESRD. Echo 03/17 shows EF 50 to 55%, grade 1 diastolic dysfunction and hypokinetic anterior septal wall motion. RV mildly dilated with moderately decreased systolic function. Normal LV size. Mild MR. Moderate TR and mild PI. S/p 500 cc IVF for above-mentioned lactic acidosis. No signs or symptoms of CHF exacerbation. Plan: ? Hemodialysis as above - Avoid aggressive fluid resuscitation #Depression Endorses more frequent days of fatigue and trouble falling asleep over the past 2 weeks however reports she still enjoys cooking for her family and is eating well. Denies thoughts of self-harm. Patient appeared to be very discouraged during this admission, likely secondary to discussions of possible amputation and vascular surgery procedure. Per above, patient likely has mild to moderate depression. Plan: - Not interested in starting therapy/counseling or medication for mood management at this time Health Maintenance Disposition: management of left foot diabetic ulcer and osteomyelitis DVT prophylaxis: heparin GI prophylaxis: protonix Bowel: Senna Diet: Carb consistent CODE STATUS: FULL Patient plan of care was discussed with the resident, Dr. Garcia, and the attending Dr. Mcdaniel. Delmis Lazcano PGY-1 Attending Provider Attestation/Addendum I have examined the patient, reviewed labs and imaging findings, discussed the case with the resident(s), and reviewed entered orders. I agree with the plan of care as outlined in this note, with these additional summaries/recommendations: Patient & family seen at bedside. No acute overnight events. Patient seen resting comfortably in hospital bed and she reports her pain is currently controlled. Status post vascular surgeon evaluation who is in agreement with BKA. Patient will go for BKA with general surgery today. Continue wound care. Continue tight glycemic control. Leukocytosis improving/resolving. She reports near resolution of diarrhea. In-house nephrology following for end-stage renal disease. Renally dose medications and avoid nephrotoxic agents. Hold chemical anticoagulation in anticipation of amputation. Patient updated on the plan and in agreement. All questions answered to satisfaction. Please see residents note for additional details and management. Dr. Violeta MD
--- NOTE | 2025-03-25 13:29 | SUR.PHASEI ---
pt received from OR in recovery bay 4. pt asleep but responds to voice, breathing unlabored on oxymask 8l. v/s stable. pt dressing to left lower extremity cdi. report received from Jayde SELLERS and Stan JAIMES.
--- NOTE | 2025-03-25 13:35 | PD.SUROPNT ---
Date of Procedure 03/25/25 Pre Op Diagnosis Osteomyelitis and gangrene of left heel Post Op Diagnosis Osteomyelitis and gangrene of left heel Procedure Left below the knee amputation Findings Large area of skin necrosis and gangrene of left heel. All 3 below the knee arteries were patent but calcified Procedure Description The patient was brought into the operating room in supine position after administration of general endotracheal anesthesia the left lower extremity was prepped and draped in standard surgical manner. The anterior incision was made approximately 15 cm distal to the tibial tuberosity and the posterior incision was approximately 12 cm distal to the anterior incision. Dissection was carried through the subcutaneous tissue. The compartments of the leg entered. The fascias muscles were divided with electrocautery. Neurovascular bundles were ligated with #0 Vicryl tie. The patient was noted to have patent arteries, however calcified. All the muscle compartments were excised. The tibia was divided approximately 5 cm proximal to the anterior incision and the fibula was divided approximately 7 cm proximal to the anterior incision. Wound was copiously and thoroughly washed and irrigated with betadine mixed with peroxide and saline. It was further washed with warm saline. The posterior skin and gastrocnemius muscle were raised anteriorly as a musculocutaneous flap. Posterior fascia was approximated to the anterior fascia with interrupted suture using #0 Vicryl. Hemostasis was adequate and satisfactory. Once the anterior fascia was reapproximated to the posterior fascia, the subcutaneous tissue was closed with interrupted suture using #0 Vicryl and the skin was closed with marisela. Dry dressing as well as Kerlix was placed over the stump. The patient tolerated the procedure well.she was extubated, was breathing spontaneously, and without difficulty, and was transferred to postanesthesia care in stable condition. Instrument, needle, and sponge counts were all reported to be correct x2. Anesthesia GETA Pathology / specimen Other (Left distal leg and foot) Estimated Blood Loss 100 Condition Stable Disposition PACU Surgeon Yolanda Davey MD Surgical Staff Operation Date: 03/25/25 11:30 Case Staff SUPERVISOR [employer]: Kingsley Bolden RNclass b driver: Qiana Sin
--- NOTE | 2025-03-25 14:06 | SUR.PHASEI ---
pt alseep but responds to voice, breathing unlabored on room air. v/s stable. pt dressing to left lower extremity cdi. report called to Daria SELLERS. pt will be transferred to room at this time.
[2025-03-25] MEDS: INSULIN LISPRO (AdmeLOG) 1 UNIT/0.01 ML UNIT SC (20:15)
[2025-03-25] MEDS: ASCORBIC ACID 250 MG TABLET 500 MG PO (20:19)
[2025-03-25] MEDS: ATORVASTATIN CALCIUM 20 MG TABLET 40 MG PO (20:19)
[2025-03-26] VITALS (25 sets, daily range): BP systolic 111–166; BP diastolic 50–79; PULSE 71–118; RESP 14–95; TEMP 36.1–36.7; O2SAT 91–94; BMI 28.2; BMI 13.0
[2025-03-26 06:05] LABS: Basophils # (Auto) 0.0 Thou/mm3 (0.0-0.2); Basophils % (Auto) 0 % (0-2.5); Eosinophils # (Auto) 0.0 Thou/mm3 (0.0-0.5); Eosinophils % (Auto) 0 % (0-10); Hematocrit 29.9 % (36.0-46.0); Hemoglobin 9.7 g/dL (12.0-16.0); Immature Granulocytes Auto 0.12 Thou/mm3 (0.00-0.00); Lymphocytes # (Auto) 0.5 Thou/mm3 (1.0-4.8); Lymphocytes % (Auto) 3 % (10-50); Mean Corpuscular HGB Conc 32.4 g/dl (31.0-37.0); Mean Corpuscular Hemoglobin 29.0 pg (25.0-35.0); Mean Corpuscular Volume 89 fL (80-100); Monocytes # (Auto) 0.2 Thou/mm3 (0.0-0.8); Monocytes % (Auto) 2 % (0-12); Neutrophils # (Auto) 13.8 Thou/mm3 (1.8-7.7); Neutrophils % (Auto) 94 % (37-80); Nucleated Red Blood Cell # 0.00 Thou/mm3 (0.00-0.00); Nucleated Red Blood Cell % 0 /100 WBC (0); Platelet Count 271 Thou/mm3 (140-440); RDW Standard Deviation 54.9 fL (36.4-46.3); Red Blood Count 3.35 Miln/mm3 (4.00-5.20); White Blood Count 14.6 Thou/mm3 (3.6-11.0)
--- NOTE | 2025-03-26 07:27 | PC.NURSE ---
pt went for dialysis at 0712. awake oriented and not complaining of pain
[2025-03-26 07:38] LABS: Anion Gap 15 (7-16); BUN/Creatinine Ratio 12 Ratio (12-20); Blood Urea Nitrogen 81 mg/dL (9-23); Calcium 8.6 mg/dL (8.3-10.6); Carbon Dioxide 21.1 mMol/L (20.0-31.0); Chloride 98 mMol/L (98-107); Creatinine (Component) 6.8 mg/dL (0.6-1.3); Estimated Creatinine Clearance 14.2 mL/min (>60); Glucose 246 mg/dL (74-106); Osmolality,Calculated 300 (275-295); Potassium 4.7 mMol/L (3.4-5.1); Sodium 134 mMol/L (136-145); eGFR 7 See Note
--- NOTE | 2025-03-26 09:22 | ESPR_ITS ---
Documentation for date of: 03/26/25 Subjective Subjective Interval history: 55 y/o F with PMH of HTN, IDDM type II, HFpEF EF 55% on 08/2024, ESRD on HD TTS, presented to the hospital on 03/16/2025 due to worsening chronic BLE wounds, pain, and swelling for last 3 days. Patient complained of pain in both knees and feet, expecially on the left heel which was oozing with blood. Patient received hemodialysis session last saturday. Patient didn't had any recent trauma to any of her lower extremities. Denies chest pain, palpation, SOB, abdominal pain, N/V, fevers, or chills. Patient has been consulted for management of ESRD on HD ED course: Afebrile, HR 90, BP 158/71, satting upper 90s on room air. Negative COVID, influenza A/B. WBC 16.6, Hgb 11.1 (baseline 9.6), PLT 244. Normal coag panel. CHEM panel significant for sodium 133 around baseline, lactic acid 3.0, CRP 15.6, PRO-FRANCISCO 13.76, ESR 124. Renal function around baseline with CR 8.8, GFR 5, BUN 70, potassium of 3.5. She has anion gap of 18, likely CKD/uremia/lactic acidosis. UA negative for UTI. Preliminary right foot x-ray showed skin and soft tissue infection with possible necrosis (pending final read) Medical history: As stated above Surgical history: Surgery for cataract and kidney stones. Allergies: NKDA Medications: Pending official med rec Family history: Noncontributory Social history: Denies smoking cigarettes, drinking alcohol or using other illicit drugs ROS: All 12 systems assessed and the patient denies unless otherwise stated in HPI 03/16/2025: Labs reviewed and patient examined at the dialysis. Patient complained of worsening discomfort on her feet. Blood was still oozing on her left heel. Cr: 8.8, BUN: 70, eGFR: 5, Hgb: 11.1 MCV: 90. Patient received hemodialysis today. 03/17/2025: Labs reviewed and patient examined at the bedside. Patient noted her pain on both knees has decreased considerably. Patient is continuing to get wound care on her unroofed blisters of left heel. Today, patient had an episode of diarrhea in bed, but did not notify staff. She was observed reaching toward the stool with her fingers. Patient demonstrates limited awareness of personal hygiene and may benefit from close monitoring and assistance with self care. BP: 99/64, Cr:7.3, BUN:44, eGFR:6. Planned for hemodialysis tomorrow. Fluid restrict the patient to <1500ml per day. 03/18/2025: Labs reviewed and patient examined at the dialysis. Patient complained of significant diarrhea. Will continue to monitor her renal function. Patient received hemodialysis today. BP 134/72, Cr: 7.4, BUN: 36, eGFR: 6. 03/19/2025: Patient was seen and evaluated at bedside this morning. Labs were reviewed. No overnight events. Patient's WBC still elevated at 13.4, creatinine 5.6, BUN 29, GFR 8. Patient is declining left foot amputation and would like to try and see if the wound heals. Patient CTA did not show major filling defects on the left lower extremity vessels. Continue with hemodialysis as scheduled. Consider vascular surgery. 03/20/2025: patient currently seen in dialysis. On antibiotics for the left heel wound decubitus ulcer. CTA showed adequate circulation of the left lower extremity. Spoke to Dr. Arevalo-will see patient in next Saturday. Conveyed the same to primary team. Patient declines and left BKA. Seen by Dr. Davey Currently on antibiotics per Dr. Banuelos. 03/21/2025: Labs reviewed and patient examined at the bedside. Patient currently has no other complaints. Cr:4.4, BUN:29, eGFR:11. Pateint will continue on antibiotics. Hemodialysis session planned for next saturday. 03/22/2025: Labs reviewed and patient examined at the bedside. Complained of generalized pain. Cr:5.4, BUN:45, eGFR:9. Pateint will continue on antibiotics. Hemodialysis session planned for next saturday. 03/23/2025: Labs reviewed and patient examined at the bedside. Patient lies comfortable at bed. Denies any pain in left feet. The left feet ulcer remains grossly unchanged. Cr: 6.2, BUN: 44, eGFR:7. Patient received hemodialysis today 03/24/2025: Labs reviewed and patient examined at the bedside. Patient being evaluated for possible below knee amputation. Current plan remains unchanged. BUN:30, Cr:4.8, eGFR:10. Planned for hemodialysis tomorrow. 03/25/2025: Labs reviewed and patient examined at the bedside. Patient will received BKA surgery today. Planned for hemodialysis tomorrow and on Saturday. Plan discussed with the patient. BUN:49, Cr:5.7, eGFR:8 03/26/2025: Labs reviewed and patient examined at the dialysis. Patient received BKA of left knee yesterday. Received hemodialysis today. and If not discharged today, planned for another hemodialysis tomorrow. Plan discussed with the patient. Currnetly cooperative, alert and awake. BUN: 81, Cr:6.8, eGFR:7 Exam Vital Signs Temp Pulse Resp BP Pulse Ox O2 Del Method O2 Flow Rate 97.0 F 88 14 155/61 H 93 L Room Air 4 03/26/25 07:25 03/26/25 09:15 03/26/25 07:25 03/26/25 09:15 03/26/25 07:25 03/26/25 07:03/25/25 13:40 Narrative Exam General: No acute distress, well nourished, AAO x3 Eye: PERRL, EOMI, normal conjunctiva, no scleral icterus HENT: Normocephalic, atraumatic, hearing intact to conversation at normal volume, moist oral mucosa Neck: Supple, non-tender, no JVD, no lymphadenopathy Lungs: Non-labored respirations, symmetric chest rise, Clear to auscultate bilaterally, No wheezing, rhonchi, crackles Heart: Peripheral pulses intact bilaterally, Regular Rate and Rhythm. Abdomen: Soft, non-tender, non-distended, no palpable masses Musculoskeletal: Normal range of motion and strength,No visible joint swelling Skin: Multiple abrasions in bilateral knees and feet. Tendor on palpation. BKA of left knee. Psychiatric: Cooperative, appropriate mood and affect, Awake and alert, not agitated Neuro: Cranial nerves II-XII grossly intact. Sensations intact to light touch. Objective Labs 03/27/25 05:20 03/27/25 05:20 Labs: Laboratory Results - last 24 hr 03/25/25 03/26/25 03/26/25 05:25 04:21 07:00 WBC 14.6 H RBC 3.35 L Hgb 9.7 L Hct 29.9 L MCV 89 MCH 29.0 MCHC 32.4 RDW Std Deviation 54.9 H Plt Count 271 Neut % (Auto) 94 H Lymph % (Auto) 3 L [place] % (Auto) 2 Eos % (Auto) 0 Baso % (Auto) 0 Neut # (Auto) 13.8 H Lymph # (Auto) 0.5 L [place] # (Auto) 0.2 Eos # (Auto) 0.0 Baso # (Auto) 0.0 Immature Gran # (Auto) 0.12 H Absolute Nucleated RBC 0.00 Immature Gran % 1 H Nucleated RBC % 0 ESR 83 H Sodium 134 L Potassium 4.7 D Chloride 98 Carbon Dioxide 21.1 Anion Gap 15 BUN 81 H Creatinine 6.8 H* D Estim Creat Clear Calc 14.2 L eGFR 7 L* BUN/Creatinine Ratio 12 Glucose 246 H D Calculated Osmolality 300 H Calcium 8.6 Quality Measures Quality Measures none Assessment & Plan Assessment Current Active Medications: Generic Name Dose Route Start Last Admin Trade Name Freq PRN Reason Stop Dose Admin Acetaminophen 650 mg 03/16/25 05:43 03/16/25 16:39 Acetaminophen 325 Mg Tablet PO 04/15/25 05:42 650 mg Q6H PRN Administration Fever >100.4 Hydrocodone Bitart/Acetaminophen 1 tab 03/24/25 08:09 Hydrocodone/Apap 7.5/325 Tablet PO 03/29/25 08:08 Q8HR PRN Pain 7-10 Ascorbic Acid 500 mg 03/23/25 21:00 03/25/25 20:19 Ascorbic Acid 250 Mg Tablet PO 04/22/25 20:59 500 mg BID LIU Administration Aspirin 81 mg 03/21/25 13:30 03/25/25 08:38 Aspirin Ec 81 Mg Tabec PO 04/20/25 13:29 Not Given QDAY LIU Atorvastatin Calcium 40 mg 03/19/25 21:00 03/25/25 20:19 Atorvastatin Calcium 20 Mg Tablet PO 04/18/25 20:59 40 mg HS LIU Administration Cholestyramine Resin 1 pkt 03/18/25 09:00 03/25/25 08:38 Cholestyramine/Sucrose 1 Pkt Ea PO 04/17/25 08:59 Not Given QDAY LIU Dextrose 25 ml 03/16/25 07:31 Dextrose 50%-Water Inj 50 Ml Syringe IV 04/15/25 07:30 Q15MIN PRN BG 50-70 responsive npo pt Dextrose 50 ml 03/16/25 07:31 Dextrose 50%-Water Inj 50 Ml Syringe IV 04/15/25 07:30 Q15MIN PRN BG <50 OR BG <70 & pt unresponsive Epoetin Darrell 10,000 unit 03/26/25 10:30 Epoetin Darrell-Epbx Inj 10,000 Unit/Ml Vial (Esrd) SC 03/26/25 10:31 X1 ONE Glucagon 1 mg 03/16/25 07:31 Glucagon Inj 1 Mg Vial IM Q15MIN PRN BG <70, and no IV access Albumin Human 25 gm in 100 mls @ 100 mls/min 03/16/25 07:48 03/16/25 10:45 Albuminar-25 Ivpb IV 100 mls/min PRN PRN Administration DIALYSIS Cefazolin Sodium/Dextrose 1 gm in 50 mls @ 100 mls/hr 03/26/25 08:30 Ancef Ivpb IV 04/02/25 08:29 Q8H [facility] Insulin Human Lispro 0 unit 03/16/25 11:30 03/25/25 20:15 Insulin Lispro (Admelog) 1 Unit/0.01 Ml Unit SC 04/15/25 11:29 2 unit ACHS LIU Administration Protocol Loperamide HCl 2 mg 03/22/25 14:55 Loperamide 2 Mg Capsule PO Q1H PRN DIARRHEA Losartan Potassium 50 mg 03/23/25 09:00 03/25/25 08:39 Losartan Potassium 25 Mg Tablet PO 04/22/25 08:59 Not Given QDAY [facility] Melatonin 3 mg 03/20/25 17:54 Melatonin 3 Mg Tablet PO 04/19/25 20:59 HS PRN insomnia Morphine Sulfate 3 mg 03/25/25 14:13 Morphine Sulf Inj 4 Mg/Ml Vial IVP 03/30/25 14:12 Q2H PRN PAIN SCALE 7-10 (Severe Ondansetron HCl 4 mg 03/16/25 05:43 Ondansetron Inj 2 Mg/Ml Inj 2 Ml IVP 04/15/25 05:42 Q6H PRN NAUSEA OR VOMITING Protocol Zinc Sulfate 220 mg 03/24/25 09:00 03/25/25 08:39 Zinc Sulfate 220 Mg Capsule PO 04/23/25 08:59 Not Given QDAY [facility] Plan 55-year-old female with PMHx of HTN, IDDM type II, HFpEF EF 55% on 08/2024, ESRD on HD TTS, presenting with right heel pain. Patient has been consulted to nephrology for managment of ESRD on HD #ESRD on hemodialysis. #Anemia of Chronic Kidney disease -On admission: Cr: 8.8, BUN: 70, eGFR: 5, Hgb: 11.1 MCV: 90 -The patient's hemodialysis session is Saturday, , and Saturday. -Currently, BUN: 81, Cr:6.8, eGFR:7 -Hemodialysis sessions: 03/16, 03/18, 03/20, 03/23, 03/26 Plan: -Monitor renal function -Maintain fluid restriction, avoid nephrotoxic agents when possible, renally dose medications -Strict i and o -Planned for hemodialysis session today and on saturday. #Osteomyelitis of left heel #Left heel ulcer #Lactic Acidosis, resolved #Bilateral PAD of lower extremities, chronic #Diarrhea, chronic #Normocytic anemia #Hx of NIDDM #HFrEF EF 50-55% (03/17/25) #Grade I diastolic dysfunction #Depression -Management per Primary Hospitalist team Thank you for allowing us to participate in the care of your patient. Assessment and plan discussed with my attending physician Dr. Marely Melchor (PGY-1)- Internal medicine resident Attending Provider Attestation/Addendum patient currently seen and examined with resident physician Dr. Melchor. Note reviewed, agree with findings and recommendations. Patient currently seen on dialysis. Tolerating dialysis without any problems. Hemodialysis for 3 hours, 2K, ultrafiltration 1-2 L, Epogen 6000, no heparin ordered. Plan of care discussed with the dialysis nurse. Please see dialysis flowsheet for further details. Next dialysis scheduled for tomorrow. Postdialysis if rehab placement is done- can be discharged. Status post left BKA.
--- NOTE | 2025-03-26 09:34 | PC.SS ---
Follow up note: Pt had BKA yesterday. Insurance authorization has been provided to [facility] and expires 04-05-25.
[2025-03-26] MEDS: EPOETIN ALFA-EPBX INJ 10,000 UNIT/ML VIAL (ESRD) 10000 UNIT SC (10:02)
[2025-03-26] MEDS: INSULIN LISPRO (AdmeLOG) 1 UNIT/0.01 ML UNIT SC ×3 (11:57→20:20)
--- NOTE | 2025-03-26 12:30 | PC.NURSE ---
Case Youssef called [facility] at 1230, they should have someone out by the end of the day.
--- NOTE | 2025-03-26 13:13 | PD.RESPRO ---
Documentation for date of: 03/26/25 Subjective Subjective Interval history: Events overnight. Status post BKA POD 1. Doing well. Complaining of mild back soreness likely secondary to bedbound state, otherwise no new complaints. Started on IV cefazolin per Dr. Davey. Monitor for another 2 days. Evaluated by physical therapy, patient is safe for discharge to SNF with PT follow-up. Had hemodialysis today, will have another session tomorrow to keep scheduled. Anticipate discharge to SNF on Saturday. Exam Vital Signs Temp Pulse Resp BP Pulse Ox O2 Del Method O2 Flow Rate 97.1 F 86 14 152/55 H 92 L Room Air 4 03/26/25 12:00 03/26/25 12:00 03/26/25 12:03/26/25 12:03/26/25 12:03/26/25 12:03/25/25 13:40 Narrative Exam Physical Exam General: Awake and in no acute distress. Mildly depressed. Appears older that actual age. HEENT: Normocephalic, atraumatic, mucous membranes moist. Heart: Regular rate and rhythm, normal S1 and S2, no murmurs. Lungs: Clear to auscultation with no wheezing or crackles. Abdomen: Soft, nondistended, nontender, positive bowel sounds. No guarding or rebound tenderness. Neurologic: Alert and oriented x3, no gross neurological deficit, and patient able to move all 4 extremities. Extremities: Left heel wound, well dressed with minimal drainage. Dressing clean dry and intact. Multiple healed ulcerations on bilateral legs and right hip. Wrinkling skin on bilateral calves, no edema bilaterally. Pedal pulses diminished bilaterally. Skin: No rash or ecchymoses. Objective Labs 03/27/25 05:20 03/27/25 05:20 Labs: Laboratory Results - last 24 hr 03/26/25 03/26/25 04:21 07:00 WBC 14.6 H RBC 3.35 L Hgb 9.7 L Hct 29.9 L MCV 89 MCH 29.0 MCHC 32.4 RDW Std Deviation 54.9 H Plt Count 271 Neut % (Auto) 94 H Lymph % (Auto) 3 L [place] % (Auto) 2 Eos % (Auto) 0 Baso % (Auto) 0 Neut # (Auto) 13.8 H Lymph # (Auto) 0.5 L [place] # (Auto) 0.2 Eos # (Auto) 0.0 Baso # (Auto) 0.0 Immature Gran # (Auto) 0.12 H Absolute Nucleated RBC 0.00 Immature Gran % 1 H Nucleated RBC % 0 Sodium 134 L Potassium 4.7 D Chloride 98 Carbon Dioxide 21.1 Anion Gap 15 BUN 81 H Creatinine 6.8 H* D Estim Creat Clear Calc 14.2 L eGFR 7 L* BUN/Creatinine Ratio 12 Glucose 246 H D Calculated Osmolality 300 H Calcium 8.6 Quality Measures Quality Measures none Assessment & Plan Assessment Current Active Medications: Generic Name Dose Route Start Last Admin Trade Name Freq PRN Reason Stop Dose Admin Acetaminophen 650 mg 03/16/25 05:43 03/16/25 16:39 Acetaminophen 325 Mg Tablet PO 04/15/25 05:42 650 mg Q6H PRN Administration Fever >100.4 Hydrocodone Bitart/Acetaminophen 1 tab 03/24/25 08:09 Hydrocodone/Apap 7.5/325 Tablet PO 03/29/25 08:08 Q8HR PRN Pain 7-10 Ascorbic Acid 500 mg 03/23/25 21:00 03/26/25 10:14 Ascorbic Acid 250 Mg Tablet PO 04/22/25 20:59 Not Given BID LIU Aspirin 81 mg 03/21/25 13:30 03/26/25 10:14 Aspirin Ec 81 Mg Tabec PO 04/20/25 13:29 Not Given QDAY LIU Atorvastatin Calcium 40 mg 03/19/25 21:00 03/25/25 20:19 Atorvastatin Calcium 20 Mg Tablet PO 04/18/25 20:59 40 mg HS LIU Administration Cholestyramine Resin 1 pkt 03/18/25 09:00 03/26/25 10:14 Cholestyramine/Sucrose 1 Pkt Ea PO 04/17/25 08:59 Not Given QDAY LIU Dextrose 25 ml 03/16/25 07:31 Dextrose 50%-Water Inj 50 Ml Syringe IV 04/15/25 07:30 Q15MIN PRN BG 50-70 responsive npo pt Dextrose 50 ml 03/16/25 07:31 Dextrose 50%-Water Inj 50 Ml Syringe IV 04/15/25 07:30 Q15MIN PRN BG <50 OR BG <70 & pt unresponsive Glucagon 1 mg 03/16/25 07:31 Glucagon Inj 1 Mg Vial IM Q15MIN PRN BG <70, and no IV access Albumin Human 25 gm in 100 mls @ 100 mls/min 03/16/25 07:48 03/16/25 10:45 Albuminar-25 Ivpb IV 100 mls/min PRN PRN Administration DIALYSIS Cefazolin Sodium/Dextrose 1 gm in 50 mls @ 100 mls/hr 03/26/25 08:30 03/26/25 10:14 Ancef Ivpb IV 04/02/25 08:29 Not Given Q8H LIU Insulin Human Lispro 0 unit 03/16/25 11:30 03/26/25 11:57 Insulin Lispro (Admelog) 1 Unit/0.01 Ml Unit SC 04/15/25 11:29 2 unit ACHS LIU Administration Protocol Loperamide HCl 2 mg 03/22/25 14:55 Loperamide 2 Mg Capsule PO Q1H PRN DIARRHEA Losartan Potassium 50 mg 03/23/25 09:00 03/26/25 10:14 Losartan Potassium 25 Mg Tablet PO 04/22/25 08:59 Not Given QDAY [facility] Melatonin 3 mg 03/20/25 17:54 Melatonin 3 Mg Tablet PO 04/19/25 20:59 HS PRN insomnia Morphine Sulfate 3 mg 03/25/25 14:13 Morphine Sulf Inj 4 Mg/Ml Vial IVP 03/30/25 14:12 Q2H PRN PAIN SCALE 7-10 (Severe Ondansetron HCl 4 mg 03/16/25 05:43 Ondansetron Inj 2 Mg/Ml Inj 2 Ml IVP 04/15/25 05:42 Q6H PRN NAUSEA OR VOMITING Protocol Zinc Sulfate 220 mg 03/24/25 09:00 03/26/25 10:14 Zinc Sulfate 220 Mg Capsule PO 04/23/25 08:59 Not Given QDAY LIU Plan Patient is a 55-year-old female with PMHx of HTN, NIDDM type II with multiple complications, HFpEF EF 50-55%, ESRD on HD TTS, who presented on 03/15 for left heel pain, admitted for osteomyelitits of left leg secondary to left heel ulcer. #Osteomyelitis of left heel #Left heel ulcer #S/p Left BKA #Lactic Acidosis, resolved Presented with left heel pain, with findings of soft tissue infection of the left heel. Denies trauma. Accompanied by lactic acidosis of 3.0, likely combination type B from CKD and less likely type A since no sign sepsis at this point. Blood cultures negative for 48 hours. X-ray left foot shows early osteomyelitis plantar surface of the calcaneus CT left lower extremity shows osteomyelitis calcaneus, with soft tissue infection adjacent to posterior calcaneus. Cellulitis pattern. CTA as below, left leg circulation shows no blockages. S/p 500 cc NS bolus and CFX x 1 in ED. S/p IV Zosyn and vancomycin (03/16-03/17) S/p Cefepime 1 g every other day with dialysis and Doxy 100 p.o. twice daily (03/18-04/26) per ID Plan: - Consulted surgeon Dr. Davey, appreciate recommendations: - Left BKA POD 1 - Monitor for another 2 days - IV cefazolin (03/26-03/28) ? Wound care following - Stump sleeve ordered upon discharge - PT evaluated - Zinc and vit C daily to promote wound healing #Bilateral PAD of lower extremities, chronic On exam, lower extremities appeared edematous and warm to touch. Left leg more tender than right. Likely secondary to long history of uncontrolled diabetes and inconsistent medication follow up. Lower extremity duplex shows severe bilateral peripheral obstructive arterial disease, appears to be chronic, similar findings in 08/10/24. CTA abdominal aorta iliofemoral runoff shows multiple significant stenoses involving the mid and distal right posterior tibial artery, no occlusion in the left posterior tibial artery. Patient will greatly benefit from stent placement given poor blood circulation to extremities, will likely improve chances of wound healing in addition to hyperbaric oxygen chamber. Explained to patient her circumstance and discussed risks and benefits of procedure, which patient was eventually agreeable to. Plan: - Consulted vascular surgeon Dr. Arevalo, appreciate recommendations: recommend BKA - Consulted director of group counseling program Dr. Barclay, appreciate recommendations: Cleared from cardiology standpoint for BKA - CTM pulses and healing ulcers - Aspirin 81mg once daily #Diarrhea, chronic Reports at least 1 month history of loose stools, 6-7 episodes per day. Denies fevers, nausea, vomiting, hematochezia, melena. Took loperamied 2 mg prn at home without much improvement. Given chronic nature, possibly IBS versus malabsorption versus medication induced. Previously had GI workup for same chronic diarrhea. Colonoscopy 08/14/2024 showed medium polyp on proximal ascending colon and hemorrhoids but otherwise unremarkable. Biopsies were negative for microscopic colitis and dysplasia. Stool calprotectin 03/17 56. Negative for Campylobacter, E coli Shiga tox, Salmonella, Shigella. Giardia negative. Note, stool calprotectin and Giardia were negative back in August 2024. Plan: - Cholestyramine 4g daily - Loperamide 2 mg prn - Follow-up TTG - CTM bowel movements or signs of infection - Recommend outpatient stool studies work up #ESRD on HD TTS Last hemodialysis on Saturday, renal panel appears at baseline. Follows Dr. Yap outpatient. Dialysis sessions: 03/16 (-3.2L), 03/18 (-3.4L), 03/20 (-3.0 L), 03/23 ? Cruise Director Dr. Yap consulted, appreciate recommendations ? TTS HD schedule - Renally dose medications - Avoid nephrotoxic agents #Normocytic anemia Hgb baseline -. Iron panel showed low iron, TIBC, and saturation. Likely combination of ANSELMO and anemia of chronic disease secondary to renal failure. Vit B12 and folate WNL. - Consider starting on iron supplement outpatient, may defer in setting of osteomyelitis - HD as above #Hx of NIDDM A1c 7.1 from 08/2024. Glucose 152 on admission. A1c 7.7 on 03/16. ? INSULIN sliding scale ? Accu-Cheks #HFpEF EF 50-55% (03/17/25) #Grade I diastolic dysfunction Echo 08/2024: EF 55%. Hypokinetic anterior septal wall motion. RV is mildly dilated with moderately decreased systolic function. Estimated RVSP, 47mmHg. RAP 15. Mild MR. Has bilateral lower extremity edema likely combination HFpEF and ESRD. Echo 03/17 shows EF 50 to 55%, grade 1 diastolic dysfunction and hypokinetic anterior septal wall motion. RV mildly dilated with moderately decreased systolic function. Normal LV size. Mild MR. Moderate TR and mild PI. S/p 500 cc IVF for above-mentioned lactic acidosis. No signs or symptoms of CHF exacerbation. Plan: ? Hemodialysis as above - Avoid aggressive fluid resuscitation #Depression Endorses more frequent days of fatigue and trouble falling asleep over the past 2 weeks however reports she still enjoys cooking for her family and is eating well. Denies thoughts of self-harm. Patient appeared to be very discouraged during this admission, likely secondary to discussions of possible amputation and vascular surgery procedure. Per above, patient likely has mild to moderate depression. Plan: - Not interested in starting therapy/counseling or medication for mood management at this time Health Maintenance Disposition: management of left foot diabetic ulcer and osteomyelitis DVT prophylaxis: heparin GI prophylaxis: protonix Bowel: Senna Diet: Carb consistent CODE STATUS: FULL Patient plan of care was discussed with the attending Dr. Mcdaniel. Delmis Lazcano PGY-1 Attending Provider Attestation/Addendum I have examined the patient, reviewed labs and imaging findings, discussed the case with the resident(s), and reviewed entered orders. I agree with the plan of care as outlined in this note, with these additional summaries/recommendations: Patient & family seen at bedside. No acute overnight events. Patient is postoperative day #1 status post left BKA. She tolerated procedure well and currently reports her pain is controlled. Will continue IV Ancef. WBC count did worsen although likely reactive. No growth on blood cultures. Continue wound care. Physical therapy. Arranging stump protector. Continue wound care. Continue tight glycemic control. She reports near resolution of diarrhea. In-house nephrology following for end-stage renal disease. Renally dose medications and avoid nephrotoxic agents. Patient updated on the plan and in agreement. All questions answered to satisfaction. Please see residents note for additional details and management. Dr. Violeta MD
--- NOTE | 2025-03-26 16:12 | PD.SURPROG ---
Documentation for date of: 03/26/25 Subjective Subjective Narrative: Pt is seen and examined. She is resting comfortably and pain is well controlled. Exam Vital Signs Temp Pulse Resp BP Pulse Ox O2 Del Method O2 Flow Rate 97.1 F 86 14 152/55 H 92 L Room Air 4 03/26/25 12:00 03/26/25 16:00 03/26/25 12:00 03/26/25 12:00 03/26/25 12:00 03/26/25 12:00 03/25/25 13:40 Routine Extremities Exam Comments: Left BKA stump with dressing clean, dry and intact Assessment & Plan Assessment Additional comments: POD#1 s/p left BKA Plan Continue IV antibiotics and keep dressing intact. Will remove dressing and dc antibiotics on POD#3 PROCEDURES: Procedures Left below the knee amputation
[2025-03-26] MEDS: ceFAZolin/D5W 1 GM IVPB 1 GM/50 ML BAG IV (16:58)
[2025-03-26] MEDS: ATORVASTATIN CALCIUM 20 MG TABLET 40 MG PO (20:20)
[2025-03-26] MEDS: ASCORBIC ACID 250 MG TABLET 500 MG PO (20:20)
[2025-03-27] VITALS (26 sets, daily range): BP systolic 116–185; BP diastolic 51–102; PULSE 70–112; RESP 16–96; TEMP 35.9–37.2; O2SAT 93–97
[2025-03-27] MEDS: ceFAZolin/D5W 1 GM IVPB 1 GM/50 ML BAG IV ×4 (00:06→23:53)
[2025-03-27 05:37] LABS: Basophils # (Auto) 0.0 Thou/mm3 (0.0-0.2); Basophils % (Auto) 0 % (0-2.5); Eosinophils # (Auto) 0.0 Thou/mm3 (0.0-0.5); Eosinophils % (Auto) 0 % (0-10); Hematocrit 27.9 % (36.0-46.0); Hemoglobin 8.9 g/dL (12.0-16.0); Immature Granulocytes Auto 0.16 Thou/mm3 (0.00-0.00); Lymphocytes # (Auto) 1.3 Thou/mm3 (1.0-4.8); Lymphocytes % (Auto) 9 % (10-50); Mean Corpuscular HGB Conc 31.9 g/dl (31.0-37.0); Mean Corpuscular Hemoglobin 28.9 pg (25.0-35.0); Mean Corpuscular Volume 91 fL (80-100); Monocytes # (Auto) 1.4 Thou/mm3 (0.0-0.8); Monocytes % (Auto) 9 % (0-12); Neutrophils # (Auto) 12.8 Thou/mm3 (1.8-7.7); Neutrophils % (Auto) 81 % (37-80); Nucleated Red Blood Cell # 0.00 Thou/mm3 (0.00-0.00); Nucleated Red Blood Cell % 0 /100 WBC (0); Platelet Count 288 Thou/mm3 (140-440); RDW Standard Deviation 57.1 fL (36.4-46.3); Red Blood Count 3.08 Miln/mm3 (4.00-5.20); White Blood Count 15.8 Thou/mm3 (3.6-11.0)
[2025-03-27 06:12] LABS: Anion Gap 14 (7-16); BUN/Creatinine Ratio 7 Ratio (12-20); Blood Urea Nitrogen 33 mg/dL (9-23); Calcium 8.8 mg/dL (8.3-10.6); Carbon Dioxide 25.2 mMol/L (20.0-31.0); Chloride 98 mMol/L (98-107); Creatinine (Component) 4.7 mg/dL (0.6-1.3); Estimated Creatinine Clearance 12.8 mL/min (>60); Glucose 126 mg/dL (74-106); Osmolality,Calculated 283 (275-295); Potassium 3.9 mMol/L (3.4-5.1); Sodium 137 mMol/L (136-145); eGFR 10 See Note
--- NOTE | 2025-03-27 08:57 | PD.RESPRO ---
Documentation for date of: 03/27/25 Subjective Subjective Interval history: 55 y/o F with PMH of HTN, IDDM type II, HFpEF EF 55% on 08/2024, ESRD on HD TTS, presented to the hospital on 03/16/2025 due to worsening chronic BLE wounds, pain, and swelling for last 3 days. Patient complained of pain in both knees and feet, expecially on the left heel which was oozing with blood. Patient received hemodialysis session last saturday. Patient didn't had any recent trauma to any of her lower extremities. Denies chest pain, palpation, SOB, abdominal pain, N/V, fevers, or chills. Patient has been consulted for management of ESRD on HD ED course: Afebrile, HR 90, BP 158/71, satting upper 90s on room air. Negative COVID, influenza A/B. WBC 16.6, Hgb 11.1 (baseline 9.6), PLT 244. Normal coag panel. CHEM panel significant for sodium 133 around baseline, lactic acid 3.0, CRP 15.6, PRO-FRANCISCO 13.76, ESR 124. Renal function around baseline with CR 8.8, GFR 5, BUN 70, potassium of 3.5. She has anion gap of 18, likely CKD/uremia/lactic acidosis. UA negative for UTI. Preliminary right foot x-ray showed skin and soft tissue infection with possible necrosis (pending final read) Medical history: As stated above Surgical history: Surgery for cataract and kidney stones. Allergies: NKDA Medications: Pending official med rec Family history: Noncontributory Social history: Denies smoking cigarettes, drinking alcohol or using other illicit drugs ROS: All 12 systems assessed and the patient denies unless otherwise stated in HPI 03/16/2025: Labs reviewed and patient examined at the dialysis. Patient complained of worsening discomfort on her feet. Blood was still oozing on her left heel. Cr: 8.8, BUN: 70, eGFR: 5, Hgb: 11.1 MCV: 90. Patient received hemodialysis today. 03/17/2025: Labs reviewed and patient examined at the bedside. Patient noted her pain on both knees has decreased considerably. Patient is continuing to get wound care on her unroofed blisters of left heel. Today, patient had an episode of diarrhea in bed, but did not notify staff. She was observed reaching toward the stool with her fingers. Patient demonstrates limited awareness of personal hygiene and may benefit from close monitoring and assistance with self care. BP: 99/64, Cr:7.3, BUN:44, eGFR:6. Planned for hemodialysis tomorrow. Fluid restrict the patient to <1500ml per day. 03/18/2025: Labs reviewed and patient examined at the dialysis. Patient complained of significant diarrhea. Will continue to monitor her renal function. Patient received hemodialysis today. BP 134/72, Cr: 7.4, BUN: 36, eGFR: 6. 03/19/2025: Patient was seen and evaluated at bedside this morning. Labs were reviewed. No overnight events. Patient's WBC still elevated at 13.4, creatinine 5.6, BUN 29, GFR 8. Patient is declining left foot amputation and would like to try and see if the wound heals. Patient CTA did not show major filling defects on the left lower extremity vessels. Continue with hemodialysis as scheduled. Consider vascular surgery. 03/20/2025: patient currently seen in dialysis. On antibiotics for the left heel wound decubitus ulcer. CTA showed adequate circulation of the left lower extremity. Spoke to Dr. Arevalo-will see patient in next Saturday. Conveyed the same to primary team. Patient declines and left BKA. Seen by Dr. Davey Currently on antibiotics per Dr. Banuelos. 03/21/2025: Labs reviewed and patient examined at the bedside. Patient currently has no other complaints. Cr:4.4, BUN:29, eGFR:11. Pateint will continue on antibiotics. Hemodialysis session planned for next saturday. 03/22/2025: Labs reviewed and patient examined at the bedside. Complained of generalized pain. Cr:5.4, BUN:45, eGFR:9. Pateint will continue on antibiotics. Hemodialysis session planned for next saturday. 03/23/2025: Labs reviewed and patient examined at the bedside. Patient lies comfortable at bed. Denies any pain in left feet. The left feet ulcer remains grossly unchanged. Cr: 6.2, BUN: 44, eGFR:7. Patient received hemodialysis today 03/24/2025: Labs reviewed and patient examined at the bedside. Patient being evaluated for possible below knee amputation. Current plan remains unchanged. BUN:30, Cr:4.8, eGFR:10. Planned for hemodialysis tomorrow. 03/25/2025: Labs reviewed and patient examined at the bedside. Patient will received BKA surgery today. Planned for hemodialysis tomorrow and on Saturday. Plan discussed with the patient. BUN:49, Cr:5.7, eGFR:8 03/26/2025: Labs reviewed and patient examined at the dialysis. Patient received BKA of left knee yesterday. Received hemodialysis today. and If not discharged today, planned for another hemodialysis tomorrow. Plan discussed with the patient. Currnetly cooperative, alert and awake. BUN: 81, Cr:6.8, eGFR:7 03/19/2025: Labs reviewed and patient examined at the dialysis. Received hemodialysis today. Currently awake and alert. No significant complaints at this time. BUN: 33, Cr:4.8, eGFR:10 Exam Vital Signs Temp Pulse Resp BP Pulse Ox O2 Del Method O2 Flow Rate 96.6 F L 85 18 155/61 H 93 L Room Air 4 03/27/25 07:47 03/27/25 08:46 03/27/25 07:47 03/27/25 08:46 03/27/25 07:47 03/27/25 07:37 03/25/25 13:40 Narrative Exam General: No acute distress, well nourished, AAO x3 Eye: PERRL, EOMI, normal conjunctiva, no scleral icterus HENT: Normocephalic, atraumatic, hearing intact to conversation at normal volume, moist oral mucosa Neck: Supple, non-tender, no JVD, no lymphadenopathy Lungs: Non-labored respirations, symmetric chest rise, Clear to auscultate bilaterally, No wheezing, rhonchi, crackles Heart: Peripheral pulses intact bilaterally, Regular Rate and Rhythm. Abdomen: Soft, non-tender, non-distended, no palpable masses Musculoskeletal: Normal range of motion and strength,No visible joint swelling Skin: Multiple abrasions in bilateral knees and feet. Tendor on palpation. BKA of left knee. Psychiatric: Cooperative, appropriate mood and affect, Awake and alert, not agitated Neuro: Cranial nerves II-XII grossly intact. Sensations intact to light touch. Objective Labs 03/27/25 05:20 03/27/25 05:20 Labs: Laboratory Results - last 24 hr 03/27/25 05:20 WBC 15.8 H RBC 3.08 L Hgb 8.9 L Hct 27.9 L MCV 91 MCH 28.9 MCHC 31.9 RDW Std Deviation 57.1 H Plt Count 288 Neut % (Auto) 81 H Lymph % (Auto) 9 L [place] % (Auto) 9 Eos % (Auto) 0 Baso % (Auto) 0 Neut # (Auto) 12.8 H Lymph # (Auto) 1.3 [place] # (Auto) 1.4 H Eos # (Auto) 0.0 Baso # (Auto) 0.0 Immature Gran # (Auto) 0.16 H Absolute Nucleated RBC 0.00 Immature Gran % 1 H Nucleated RBC % 0 Sodium 137 Potassium 3.9 D Chloride 98 Carbon Dioxide 25.2 Anion Gap 14 BUN 33 H Creatinine 4.7 H* D Estim Creat Clear Calc 12.8 L eGFR 10 L* BUN/Creatinine Ratio 7 L Glucose 126 H D Calculated Osmolality 283 Calcium 8.8 Quality Measures Quality Measures none Assessment & Plan Assessment Current Active Medications: Generic Name Dose Route Start Last Admin Trade Name Freq PRN Reason Stop Dose Admin Acetaminophen 650 mg 03/16/25 05:43 03/16/25 16:39 Acetaminophen 325 Mg Tablet PO 04/15/25 05:42 650 mg Q6H PRN Administration Fever >100.4 Hydrocodone Bitart/Acetaminophen 1 tab 03/24/25 08:09 Hydrocodone/Apap 7.5/325 Tablet PO 03/29/25 08:08 Q8HR PRN Pain 7-10 Ascorbic Acid 500 mg 03/23/25 21:00 03/26/25 20:20 Ascorbic Acid 250 Mg Tablet PO 04/22/25 20:59 500 mg BID LIU Administration Aspirin 81 mg 03/21/25 13:30 03/26/25 10:14 Aspirin Ec 81 Mg Tabec PO 04/20/25 13:29 Not Given QDAY LIU Atorvastatin Calcium 40 mg 03/19/25 21:00 03/26/25 20:20 Atorvastatin Calcium 20 Mg Tablet PO 04/18/25 20:59 40 mg HS LIU Administration Cholestyramine Resin 1 pkt 03/18/25 09:00 03/26/25 10:14 Cholestyramine/Sucrose 1 Pkt Ea PO 04/17/25 08:59 Not Given QDAY LIU Dextrose 25 ml 03/16/25 07:31 Dextrose 50%-Water Inj 50 Ml Syringe IV 10/09/25 07:30 Q15MIN PRN BG 50-70 responsive npo pt Dextrose 50 ml 03/16/25 07:31 Dextrose 50%-Water Inj 50 Ml Syringe IV 04/15/25 07:30 Q15MIN PRN BG <50 OR BG <70 & pt unresponsive Glucagon 1 mg 03/16/25 07:31 Glucagon Inj 1 Mg Vial IM Q15MIN PRN BG <70, and no IV access Albumin Human 25 gm in 100 mls @ 100 mls/min 03/16/25 07:48 03/16/25 10:45 Albuminar-25 Ivpb IV 100 mls/min PRN PRN Administration DIALYSIS Cefazolin Sodium/Dextrose 1 gm in 50 mls @ 100 mls/hr 03/26/25 08:30 03/27/25 00:06 Ancef Ivpb IV 04/02/25 08:29 100 mls/hr Q8H LIU Administration Insulin Degludec 8 unit 03/27/25 21:00 Insulin Degludec 5 Unit/0.05 Ml (Per 5 Units) SC 04/26/25 20:59 HS [facility] Insulin Human Lispro 0 unit 03/27/25 11:30 Insulin Lispro (Admelog) 1 Unit/0.01 Ml Unit SC 04/26/25 11:29 AC [facility] Protocol Loperamide HCl 2 mg 03/22/25 14:55 Loperamide 2 Mg Capsule PO Q1H PRN DIARRHEA Losartan Potassium 50 mg 03/23/25 09:00 03/26/25 10:14 Losartan Potassium 25 Mg Tablet PO 04/22/25 08:59 Not Given QDAY [facility] Melatonin 3 mg 03/20/25 17:54 Melatonin 3 Mg Tablet PO 04/19/25 20:59 HS PRN insomnia Morphine Sulfate 3 mg 03/25/25 14:13 Morphine Sulf Inj 4 Mg/Ml Vial IVP 03/30/25 14:12 Q2H PRN PAIN SCALE 7-10 (Severe Ondansetron HCl 4 mg 03/16/25 05:43 Ondansetron Inj 2 Mg/Ml Inj 2 Ml IVP 04/15/25 05:42 Q6H PRN NAUSEA OR VOMITING Protocol Zinc Sulfate 220 mg 03/24/25 09:00 03/26/25 10:14 Zinc Sulfate 220 Mg Capsule PO 04/23/25 08:59 Not Given QDAY LIU Plan 55-year-old female with PMHx of HTN, IDDM type II, HFpEF EF 55% on 08/2024, ESRD on HD TTS, presenting with right heel pain. Patient has been consulted to nephrology for managment of ESRD on HD #ESRD on hemodialysis. #Anemia of Chronic Kidney disease -On admission: Cr: 8.8, BUN: 70, eGFR: 5, Hgb: 11.1 MCV: 90 -The patient's hemodialysis session is Saturday, , and Saturday. -Currently, BUN: 81, Cr:6.8, eGFR:7 -Hemodialysis sessions: 03/16, 03/18, 03/20, 03/23, 03/26, 03/27 Plan: -Monitor renal function -Maintain fluid restriction, avoid nephrotoxic agents when possible, renally dose medications -Strict i and o -Hemodialysis received today #Osteomyelitis of left heel #Left heel ulcer #Lactic Acidosis, resolved #Bilateral PAD of lower extremities, chronic #Diarrhea, chronic #Normocytic anemia #Hx of NIDDM #HFrEF EF 50-55% (03/17/25) #Grade I diastolic dysfunction #Depression -Management per Primary Hospitalist team Thank you for allowing us to participate in the care of your patient. Assessment and plan discussed with my attending physician Dr. Marely Melchor (PGY-1)- Internal medicine resident Attending Provider Attestation/Addendum patient currently seen and examined with resident physician Dr. Melchor. Note reviewed, agree with findings and recommendations. Patient currently seen on dialysis. Tolerating dialysis without any problems. Hemodialysis for 3 hours, 2K, ultrafiltration 1-2 L, Epogen 6000, no heparin ordered. Plan of care discussed with the dialysis nurse. Please see dialysis flowsheet for further details. Postdialysis if rehab placement is done-can be discharged. Noted possible discharge on Saturday. Status post left BKA.
--- NOTE | 2025-03-27 11:18 | ESPR_ITS ---
Documentation for date of: 03/27/25 Subjective Subjective Interval history: No acute events overnight. POD #2, doing well. Wound dressing changed by surgery Dr Davey. Surgical site clean and intact. No new complaints this morning. Denies pain at surgical site. Pain regimen includes morphine prn s/p amputation. Will continue IV cefazolin until discharge. Completed hemodialysis this morning. In light of increased blood glucose, will start on degludec 8 units nightly, will continue to monitor and adjust accordingly. Worked with physical therapy yesterday. Was able to stand for a couple of minutes but overall weak likely due to dialysis treatment. Continue to recommend discharge to SNF with physical therapy daily. Stump sleeve and protector have been provided to patient will be sent with her upon discharge. Exam Vital Signs Temp Pulse Resp BP Pulse Ox O2 Del Method O2 Flow Rate 96.8 F 84 18 162/76 H 95 Room Air 4 03/27/25 10:19 03/27/25 10:43 03/27/25 10:19 03/27/25 10:43 03/27/25 10:19 03/27/25 07:37 03/25/25 13:40 Narrative Exam Physical Exam General: Awake and in no acute distress. Conversational. HEENT: Normocephalic, atraumatic, mucous membranes moist. Heart: Regular rate and rhythm, normal S1 and S2, no murmurs. Lungs: Clear to auscultation with no wheezing or crackles. Abdomen: Soft, nondistended, nontender, positive bowel sounds. No guarding or rebound tenderness. Neurologic: Alert and oriented x3, no gross neurological deficit, and patient able to move all 4 extremities. Extremities: Left BKA. Dressing clean dry and intact. Multiple healed ulcerations on right leg and hip. No lower extremity edema on right lower extremity. Skin: No rash or ecchymoses. Objective Labs 03/28/25 04:52 03/28/25 04:52 Labs: Laboratory Results - last 24 hr 03/27/25 05:20 WBC 15.8 H RBC 3.08 L Hgb 8.9 L Hct 27.9 L MCV 91 MCH 28.9 MCHC 31.9 RDW Std Deviation 57.1 H Plt Count 288 Neut % (Auto) 81 H Lymph % (Auto) 9 L Barren % (Auto) 9 Eos % (Auto) 0 Baso % (Auto) 0 Neut # (Auto) 12.8 H Lymph # (Auto) 1.3 Barren # (Auto) 1.4 H Eos # (Auto) 0.0 Baso # (Auto) 0.0 Immature Gran # (Auto) 0.16 H Absolute Nucleated RBC 0.00 Immature Gran % 1 H Nucleated RBC % 0 Sodium 137 Potassium 3.9 D Chloride 98 Carbon Dioxide 25.2 Anion Gap 14 BUN 33 H Creatinine 4.7 H* D Estim Creat Clear Calc 12.8 L eGFR 10 L* BUN/Creatinine Ratio 7 L Glucose 126 H D Calculated Osmolality 283 Calcium 8.8 Quality Measures Quality Measures none Assessment & Plan Assessment Current Active Medications: Generic Name Dose Route Start Last Admin Trade Name Freq PRN Reason Stop Dose Admin Acetaminophen 650 mg 03/16/25 05:43 03/16/25 16:39 Acetaminophen 325 Mg Tablet PO 04/15/25 05:42 650 mg Q6H PRN Administration Fever >100.4 Hydrocodone Bitart/Acetaminophen 1 tab 03/24/25 08:09 Hydrocodone/Apap 7.5/325 Tablet PO 03/29/25 08:08 Q8HR PRN Pain 7-10 Ascorbic Acid 500 mg 03/23/25 21:00 03/27/25 09:00 Ascorbic Acid 250 Mg Tablet PO 04/22/25 20:59 Not Given BID LIU Aspirin 81 mg 03/21/25 13:30 03/27/25 09:00 Aspirin Ec 81 Mg Tabec PO 04/20/25 13:29 Not Given QDAY LIU Atorvastatin Calcium 40 mg 03/19/25 21:00 03/26/25 20:20 Atorvastatin Calcium 20 Mg Tablet PO 04/18/25 20:59 40 mg HS LIU Administration Cholestyramine Resin 1 pkt 03/18/25 09:00 03/27/25 09:00 Cholestyramine/Sucrose 1 Pkt Ea PO 04/17/25 08:59 Not Given QDAY LIU Dextrose 25 ml 03/16/25 07:31 Dextrose 50%-Water Inj 50 Ml Syringe IV 04/15/25 07:30 Q15MIN PRN BG 50-70 responsive npo pt Dextrose 50 ml 03/16/25 07:31 Dextrose 50%-Water Inj 50 Ml Syringe IV 04/15/25 07:30 Q15MIN PRN BG <50 OR BG <70 & pt unresponsive Glucagon 1 mg 03/16/25 07:31 Glucagon Inj 1 Mg Vial IM Q15MIN PRN BG <70, and no IV access Albumin Human 25 gm in 100 mls @ 100 mls/min 03/16/25 07:48 03/16/25 10:45 Albuminar-25 Ivpb IV 100 mls/min PRN PRN Administration DIALYSIS Cefazolin Sodium/Dextrose 1 gm in 50 mls @ 100 mls/hr 03/26/25 08:30 03/27/25 00:06 Ancef Ivpb IV 04/02/25 08:29 100 mls/hr Q8H LIU Administration Insulin Degludec 8 unit 03/27/25 21:00 Insulin Degludec 5 Unit/0.05 Ml (Per 5 Units) SC 04/26/25 20:59 HS LIU Insulin Human Lispro 0 unit 03/27/25 11:30 03/27/25 11:09 Insulin Lispro (Admelog) 1 Unit/0.01 Ml Unit SC 04/26/25 11:29 Not Given AC [facility] Protocol Loperamide HCl 2 mg 03/22/25 14:55 Loperamide 2 Mg Capsule PO Q1H PRN DIARRHEA Losartan Potassium 50 mg 03/23/25 09:00 03/27/25 09:00 Losartan Potassium 25 Mg Tablet PO 04/22/25 08:59 Not Given QDAY [facility] Melatonin 3 mg 03/20/25 17:54 Melatonin 3 Mg Tablet PO 04/19/25 20:59 HS PRN insomnia Morphine Sulfate 3 mg 03/25/25 14:13 Morphine Sulf Inj 4 Mg/Ml Vial IVP 03/30/25 14:12 Q2H PRN PAIN SCALE 7-10 (Severe Protocol Ondansetron HCl 4 mg 03/16/25 05:43 Ondansetron Inj 2 Mg/Ml Inj 2 Ml IVP 04/15/25 05:42 Q6H PRN NAUSEA OR VOMITING Protocol Zinc Sulfate 220 mg 03/24/25 09:00 03/27/25 09:00 Zinc Sulfate 220 Mg Capsule PO 04/23/25 08:59 Not Given QDAY LIU Plan Patient is a 55-year-old female with PMHx of HTN, NIDDM type II with multiple complications, HFpEF EF 50-55%, ESRD on HD TTS, who presented on 03/15 for left heel pain, admitted for osteomyelitits of left leg secondary to left heel ulcer. #Osteomyelitis of left heel #Left heel ulcer #S/p Left BKA #Lactic Acidosis, resolved Presented with left heel pain, with findings of soft tissue infection of the left heel. Denies trauma. Accompanied by lactic acidosis of 3.0, likely combination type B from CKD and less likely type A since no sign sepsis at this point. Blood cultures negative for 48 hours. X-ray left foot shows early osteomyelitis plantar surface of the calcaneus CT left lower extremity shows osteomyelitis calcaneus, with soft tissue infection adjacent to posterior calcaneus. Cellulitis pattern. CTA as below, left leg circulation shows no blockages. S/p 500 cc NS bolus and CFX x 1 in ED. S/p IV Zosyn and vancomycin (03/16-03/17) S/p Cefepime 1 g every other day with dialysis and Doxy 100 p.o. twice daily (03/18-04/26) per ID Plan: - Consulted surgeon Dr. Davey, appreciate recommendations: - Left BKA POD 2, monitor until POD #3 - IV cefazolin (03/26-discharge) ? Wound care following - Stump sleeve and protector provided - PT evaluated: recommend discharge to SNF with daily PT - Zinc and vit C daily to promote wound healing #Bilateral PAD of lower extremities, chronic On exam, lower extremities appeared edematous and warm to touch. Left leg more tender than right. Likely secondary to long history of uncontrolled diabetes and inconsistent medication follow up. Lower extremity duplex shows severe bilateral peripheral obstructive arterial disease, appears to be chronic, similar findings in 08/10/24. CTA abdominal aorta iliofemoral runoff shows multiple significant stenoses involving the mid and distal right posterior tibial artery, no occlusion in the left posterior tibial artery. Patient will greatly benefit from stent placement given poor blood circulation to extremities, will likely improve chances of wound healing in addition to hyperbaric oxygen chamber. Explained to patient her circumstance and discussed risks and benefits of procedure, which patient was eventually agreeable to. Plan: - Consulted vascular surgeon Dr. Arevalo, appreciate recommendations: recommend BKA - Consulted planning advisor Dr. Barclay, appreciate recommendations: Cleared from cardiology standpoint for BKA - CTM pulses and healing ulcers - Aspirin 81mg once daily #Diarrhea, chronic Reports at least 1 month history of loose stools, 6-7 episodes per day. Denies fevers, nausea, vomiting, hematochezia, melena. Took loperamied 2 mg prn at home without much improvement. Given chronic nature, possibly IBS versus malabsorption versus medication induced. Previously had GI workup for same chronic diarrhea. Colonoscopy 08/14/2024 showed medium polyp on proximal ascending colon and hemorrhoids but otherwise unremarkable. Biopsies were negative for microscopic colitis and dysplasia. Stool calprotectin 03/17 56. Negative for Campylobacter, E coli Shiga tox, Salmonella, Shigella. Giardia negative. Note, stool calprotectin and Giardia were negative back in August 2024. Plan: - Cholestyramine 4g daily - Loperamide 2 mg prn - Follow-up TTG - CTM bowel movements or signs of infection - Recommend outpatient stool studies work up #ESRD on HD TTS Last hemodialysis on Saturday, renal panel appears at baseline. Follows Dr. Yap outpatient. Dialysis sessions: 03/16 (-3.2L), 03/18 (-3.4L), 03/20 (-3.0 L), 03/23, 03/26, 03/27 ? Reeler Operator Dr. Yap consulted, appreciate recommendations ? TTS HD schedule - Outpatient HD with transportation arranged - Renally dose medications - Avoid nephrotoxic agents #Normocytic anemia Hgb baseline 10-11. Iron panel showed low iron, TIBC, and saturation. Likely combination of ANSELMO and anemia of chronic disease secondary to renal failure. Vit B12 and folate WNL. - Start on iron supplements upon discharge - HD as above #Hx of NIDDM A1c 7.1 from 08/2024. Glucose 152 on admission. A1c 7.7 on 03/16. Does not take any medications for her diabetes at home. - Start degludec 8 units nightly ? INSULIN sliding scale ? Accu-Cheks #HFpEF EF 50-55% (03/17/25) #Grade I diastolic dysfunction Echo 08/2024: EF 55%. Hypokinetic anterior septal wall motion. RV is mildly dilated with moderately decreased systolic function. Estimated RVSP, 47mmHg. RAP 15. Mild MR. Has bilateral lower extremity edema likely combination HFpEF and ESRD. Echo 03/17 shows EF 50 to 55%, grade 1 diastolic dysfunction and hypokinetic anterior septal wall motion. RV mildly dilated with moderately decreased systolic function. Normal LV size. Mild MR. Moderate TR and mild PI. S/p 500 cc IVF for above-mentioned lactic acidosis. No signs or symptoms of CHF exacerbation. Plan: ? Hemodialysis as above - Avoid aggressive fluid resuscitation #Depression Endorses more frequent days of fatigue and trouble falling asleep over the past 2 weeks however reports she still enjoys cooking for her family and is eating well. Denies thoughts of self-harm. Patient appeared to be very discouraged during this admission, likely secondary to discussions of possible amputation and vascular surgery procedure. Per above, patient likely has mild to moderate depression. Plan: - Not interested in starting therapy/counseling or medication for mood management at this time Health Maintenance Disposition: management of left foot diabetic ulcer and osteomyelitis DVT prophylaxis: heparin GI prophylaxis: protonix Bowel: Senna Diet: Carb consistent CODE STATUS: FULL Patient plan of care was discussed with the attending Dr. Mcdaniel. Delmis Lazcano PGY-1 Attending Provider Attestation/Addendum I have examined the patient, reviewed labs and imaging findings, discussed the case with the resident(s), and reviewed entered orders. I agree with the plan of care as outlined in this note, with these additional summaries/recommendations: Patient seen at bedside. No acute overnight events. Patient is postoperative day #2 status post left BKA. She tolerated procedure well and currently reports her pain is controlled. Will continue IV Ancef. Leukocytosis worsening although most likely reactive. No growth on blood cultures. Continue wound care. Physical therapy. Stump protector provided. Continue wound care. Continue tight glycemic control. She reports near resolution of diarrhea. In-house nephrology following for end-stage renal disease. Patient received HD today 03/27. Renally dose medications and avoid nephrotoxic agents. Patient updated on the plan and in agreement. All questions answered to satisfaction. Please see residents note for additional details and management. Dr. Violeta MD
[2025-03-27] MEDS: ACETAMINOPHEN 325 MG TABLET 650 MG PO ×2 (13:41→22:44)
[2025-03-27] MEDS: INSULIN LISPRO (AdmeLOG) 1 UNIT/0.01 ML UNIT SC (16:50)
[2025-03-27] MEDS: ASCORBIC ACID 250 MG TABLET 500 MG PO (20:04)
[2025-03-27] MEDS: ATORVASTATIN CALCIUM 20 MG TABLET 40 MG PO (20:05)
[2025-03-27] MEDS: INSULIN DEGLUDEC 5 UNIT/0.05 ML (PER 5 UNITS) 8 UNIT SC (20:05)
[2025-03-28] VITALS (10 sets, daily range): BP systolic 142–160; BP diastolic 80–91; PULSE 80–97; RESP 16–22; TEMP 36.1–36.2; O2SAT 92–95; BMI 27.8
[2025-03-28] MEDS: ONDANSETRON INJ 2 MG/ML INJ 2 ML 4 MG IVP (00:13)
[2025-03-28 05:30] LABS: Basophils # (Auto) 0.1 Thou/mm3 (0.0-0.2); Basophils % (Auto) 1 % (0-2.5); Eosinophils # (Auto) 0.1 Thou/mm3 (0.0-0.5); Eosinophils % (Auto) 1 % (0-10); Hematocrit 30.6 % (36.0-46.0); Hemoglobin 9.5 g/dL (12.0-16.0); Immature Granulocytes Auto 0.10 Thou/mm3 (0.00-0.00); Lymphocytes # (Auto) 1.2 Thou/mm3 (1.0-4.8); Lymphocytes % (Auto) 9 % (10-50); Mean Corpuscular HGB Conc 31.0 g/dl (31.0-37.0); Mean Corpuscular Hemoglobin 28.9 pg (25.0-35.0); Mean Corpuscular Volume 93 fL (80-100); Monocytes # (Auto) 1.4 Thou/mm3 (0.0-0.8); Monocytes % (Auto) 11 % (0-12); Neutrophils # (Auto) 9.9 Thou/mm3 (1.8-7.7); Neutrophils % (Auto) 78 % (37-80); Nucleated Red Blood Cell # 0.04 Thou/mm3 (0.00-0.00); Nucleated Red Blood Cell % 0 /100 WBC (0); Platelet Count 273 Thou/mm3 (140-440); RDW Standard Deviation 60.4 fL (36.4-46.3); Red Blood Count 3.29 Miln/mm3 (4.00-5.20); White Blood Count 12.8 Thou/mm3 (3.6-11.0)
[2025-03-28 05:53] LABS: Anion Gap 10 (7-16); BUN/Creatinine Ratio 5 Ratio (12-20); Blood Urea Nitrogen 17 mg/dL (9-23); Calcium 9.3 mg/dL (8.3-10.6); Carbon Dioxide 27.1 mMol/L (20.0-31.0); Chloride 102 mMol/L (98-107); Creatinine (Component) 3.6 mg/dL (0.6-1.3); Estimated Creatinine Clearance 16.7 mL/min (>60); Glucose 91 mg/dL (74-106); Osmolality,Calculated 279 (275-295); Potassium 4.2 mMol/L (3.4-5.1); Sodium 139 mMol/L (136-145); eGFR 14 See Note
[2025-03-28] MEDS: ceFAZolin/D5W 1 GM IVPB 1 GM/50 ML BAG IV ×2 (07:53→16:10)
[2025-03-28] MEDS: ASPIRIN EC 81 MG TABEC PO (08:06)
[2025-03-28] MEDS: ACETAMINOPHEN 325 MG TABLET 650 MG PO (08:06)
[2025-03-28] MEDS: ASCORBIC ACID 250 MG TABLET 500 MG PO (08:06)
[2025-03-28] MEDS: ZINC SULFATE 220 MG CAPSULE PO (08:06)
[2025-03-28] MEDS: CHOLESTYRAMINE/SUCROSE 1 PKT EA PO (08:07)
[2025-03-28] MEDS: LOSARTAN POTASSIUM 25 MG TABLET 50 MG PO ×2 (08:07→09:54)
--- NOTE | 2025-03-28 09:02 | ESPR_ITS ---
Documentation for date of: 03/28/25 Subjective Subjective Interval history: 55 y/o F with PMH of HTN, IDDM type II, HFpEF EF 55% on 08/2024, ESRD on HD TTS, presented to the hospital on 03/16/2025 due to worsening chronic BLE wounds, pain, and swelling for last 3 days. Patient complained of pain in both knees and feet, expecially on the left heel which was oozing with blood. Patient received hemodialysis session last saturday. Patient didn't had any recent trauma to any of her lower extremities. Denies chest pain, palpation, SOB, abdominal pain, N/V, fevers, or chills. Patient has been consulted for management of ESRD on HD ED course: Afebrile, HR 90, BP 158/71, satting upper 90s on room air. Negative COVID, influenza A/B. WBC 16.6, Hgb 11.1 (baseline 9.6), PLT 244. Normal coag panel. CHEM panel significant for sodium 133 around baseline, lactic acid 3.0, CRP 15.6, PRO-FRANCISCO 13.76, ESR 124. Renal function around baseline with CR 8.8, GFR 5, BUN 70, potassium of 3.5. She has anion gap of 18, likely CKD/uremia/lactic acidosis. UA negative for UTI. Preliminary right foot x-ray showed skin and soft tissue infection with possible necrosis (pending final read) Medical history: As stated above Surgical history: Surgery for cataract and kidney stones. Allergies: NKDA Medications: Pending official med rec Family history: Noncontributory Social history: Denies smoking cigarettes, drinking alcohol or using other illicit drugs ROS: All 12 systems assessed and the patient denies unless otherwise stated in HPI 03/16/2025: Labs reviewed and patient examined at the dialysis. Patient complained of worsening discomfort on her feet. Blood was still oozing on her left heel. Cr: 8.8, BUN: 70, eGFR: 5, Hgb: 11.1 MCV: 90. Patient received hemodialysis today. 03/17/2025: Labs reviewed and patient examined at the bedside. Patient noted her pain on both knees has decreased considerably. Patient is continuing to get wound care on her unroofed blisters of left heel. Today, patient had an episode of diarrhea in bed, but did not notify staff. She was observed reaching toward the stool with her fingers. Patient demonstrates limited awareness of personal hygiene and may benefit from close monitoring and assistance with self care. BP: 99/64, Cr:7.3, BUN:44, eGFR:6. Planned for hemodialysis tomorrow. Fluid restrict the patient to <1500ml per day. 03/18/2025: Labs reviewed and patient examined at the dialysis. Patient complained of significant diarrhea. Will continue to monitor her renal function. Patient received hemodialysis today. BP 134/72, Cr: 7.4, BUN: 36, eGFR: 6. 03/19/2025: Patient was seen and evaluated at bedside this morning. Labs were reviewed. No overnight events. Patient's WBC still elevated at 13.4, creatinine 5.6, BUN 29, GFR 8. Patient is declining left foot amputation and would like to try and see if the wound heals. Patient CTA did not show major filling defects on the left lower extremity vessels. Continue with hemodialysis as scheduled. Consider vascular surgery. 03/20/2025: patient currently seen in dialysis. On antibiotics for the left heel wound decubitus ulcer. CTA showed adequate circulation of the left lower extremity. Spoke to Dr. Arevalo-will see patient in next Saturday. Conveyed the same to primary team. Patient declines and left BKA. Seen by Dr. Davey Currently on antibiotics per Dr. Banuelos. 03/21/2025: Labs reviewed and patient examined at the bedside. Patient currently has no other complaints. Cr:4.4, BUN:29, eGFR:11. Pateint will continue on antibiotics. Hemodialysis session planned for next saturday. 03/22/2025: Labs reviewed and patient examined at the bedside. Complained of generalized pain. Cr:5.4, BUN:45, eGFR:9. Pateint will continue on antibiotics. Hemodialysis session planned for next saturday. 03/23/2025: Labs reviewed and patient examined at the bedside. Patient lies comfortable at bed. Denies any pain in left feet. The left feet ulcer remains grossly unchanged. Cr: 6.2, BUN: 44, eGFR:7. Patient received hemodialysis today 03/24/2025: Labs reviewed and patient examined at the bedside. Patient being evaluated for possible below knee amputation. Current plan remains unchanged. BUN:30, Cr:4.8, eGFR:10. Planned for hemodialysis tomorrow. 03/25/2025: Labs reviewed and patient examined at the bedside. Patient will received BKA surgery today. Planned for hemodialysis tomorrow and on Saturday. Plan discussed with the patient. BUN:49, Cr:5.7, eGFR:8 03/26/2025: Labs reviewed and patient examined at the dialysis. Patient received BKA of left knee yesterday. Received hemodialysis today. and If not discharged today, planned for another hemodialysis tomorrow. Plan discussed with the patient. Currnetly cooperative, alert and awake. BUN: 81, Cr:6.8, eGFR:7 03/27/2025: Labs reviewed and patient examined at the dialysis. Received hemodialysis today. Currently awake and alert. No significant complaints at this time. BUN: 33, Cr:4.8, eGFR:10 03/28/2025: Labs reviewed and patient examined at the bedside. BUN:17, Cr:3.6, eGFR:14. Patient has no other complaints. Stable in nephrology stand point. Continue with outpatient dialaysis. Exam Vital Signs Temp Pulse Resp BP Pulse Ox O2 Del Method O2 Flow Rate 97.1 F 85 22 H 160/81 H 95 Room Air 4 03/28/25 07:17 03/28/25 08:07 03/28/25 07:17 03/28/25 08:07 03/28/25 07:17 03/28/25 07:17 03/25/25 13:40 Narrative Exam General: No acute distress, well nourished, AAO x3 Eye: PERRL, EOMI, normal conjunctiva, no scleral icterus HENT: Normocephalic, atraumatic, hearing intact to conversation at normal volume, moist oral mucosa Neck: Supple, non-tender, no JVD, no lymphadenopathy Lungs: Non-labored respirations, symmetric chest rise, Clear to auscultate bilaterally, No wheezing, rhonchi, crackles Heart: Peripheral pulses intact bilaterally, Regular Rate and Rhythm. Abdomen: Soft, non-tender, non-distended, no palpable masses Musculoskeletal: Normal range of motion and strength,No visible joint swelling Skin: Multiple abrasions in bilateral knees and feet. Tendor on palpation. BKA of left knee. Psychiatric: Cooperative, appropriate mood and affect, Awake and alert, not agitated Neuro: Cranial nerves II-XII grossly intact. Sensations intact to light touch. Objective Labs 03/28/25 04:52 03/28/25 04:52 Labs: Laboratory Results - last 24 hr 03/28/25 04:52 WBC 12.8 H RBC 3.29 L Hgb 9.5 L Hct 30.6 L MCV 93 MCH 28.9 MCHC 31.0 RDW Std Deviation 60.4 H Plt Count 273 Neut % (Auto) 78 Lymph % (Auto) 9 L [place] % (Auto) 11 Eos % (Auto) 1 Baso % (Auto) 1 Neut # (Auto) 9.9 H Lymph # (Auto) 1.2 [place] # (Auto) 1.4 H Eos # (Auto) 0.1 Baso # (Auto) 0.1 Immature Gran # (Auto) 0.10 H Absolute Nucleated RBC 0.04 H Immature Gran % 1 H Nucleated RBC % 0 Sodium 139 Potassium 4.2 Chloride 102 Carbon Dioxide 27.1 Anion Gap 10 BUN 17 Creatinine 3.6 H D Estim Creat Clear Calc 16.7 L eGFR 14 L* BUN/Creatinine Ratio 5 L Glucose 91 Calculated Osmolality 279 Calcium 9.3 Quality Measures Quality Measures none Assessment & Plan Assessment Current Active Medications: Generic Name Dose Route Start Last Admin Trade Name Freq PRN Reason Stop Dose Admin Acetaminophen 650 mg 03/27/25 13:22 03/28/25 08:06 Acetaminophen 325 Mg Tablet PO 04/15/25 05:42 650 mg Q6H PRN Administration Fever >100.4 and pain 1-3 Hydrocodone Bitart/Acetaminophen 1 tab 03/27/25 13:23 Hydrocodone/Apap 5/325 Tablet PO 04/01/25 13:22 Q8HR PRN Pain 4-6 Ascorbic Acid 500 mg 03/23/25 21:00 03/28/25 08:06 Ascorbic Acid 250 Mg Tablet PO 04/22/25 20:59 500 mg BID LIU Administration Aspirin 81 mg 03/21/25 13:30 03/28/25 08:06 Aspirin Ec 81 Mg Tabec PO 04/20/25 13:29 81 mg QDAY LIU Administration Atorvastatin Calcium 40 mg 03/19/25 21:00 03/27/25 20:05 Atorvastatin Calcium 20 Mg Tablet PO 04/18/25 20:59 40 mg HS LIU Administration Cholestyramine Resin 1 pkt 03/18/25 09:00 03/28/25 08:07 Cholestyramine/Sucrose 1 Pkt Ea PO 04/17/25 08:59 1 pkt QDAY LIU Administration Dextrose 25 ml 03/16/25 07:31 Dextrose 50%-Water Inj 50 Ml Syringe IV 04/15/25 07:30 Q15MIN PRN BG 50-70 responsive npo pt Dextrose 50 ml 03/16/25 07:31 Dextrose 50%-Water Inj 50 Ml Syringe IV 04/15/25 07:30 Q15MIN PRN BG <50 OR BG <70 & pt unresponsive Glucagon 1 mg 03/16/25 07:31 Glucagon Inj 1 Mg Vial IM Q15MIN PRN BG <70, and no IV access Albumin Human 25 gm in 100 mls @ 100 mls/min 03/16/25 07:48 03/16/25 10:45 Albuminar-25 Ivpb IV 100 mls/min PRN PRN Administration DIALYSIS Cefazolin Sodium/Dextrose 1 gm in 50 mls @ 100 mls/hr 03/26/25 08:30 03/28/25 07:53 Ancef Ivpb IV 04/02/25 08:29 100 mls/hr Q8H LIU Administration Insulin Degludec 8 unit 03/27/25 21:00 03/27/25 20:05 Insulin Degludec 5 Unit/0.05 Ml (Per 5 Units) SC 04/26/25 20:59 8 unit HS LIU Administration Insulin Human Lispro 0 unit 03/27/25 11:30 03/28/25 07:15 Insulin Lispro (Admelog) 1 Unit/0.01 Ml Unit SC 04/26/25 11:29 Not Given AC [facility] Protocol Loperamide HCl 2 mg 03/22/25 14:55 Loperamide 2 Mg Capsule PO Q1H PRN DIARRHEA Losartan Potassium 100 mg 03/29/25 09:00 Losartan Potassium 25 Mg Tablet PO 04/28/25 08:59 QDAY LIU Melatonin 3 mg 03/20/25 17:54 Melatonin 3 Mg Tablet PO 04/19/25 20:59 HS PRN insomnia Morphine Sulfate 3 mg 03/25/25 14:13 Morphine Sulf Inj 4 Mg/Ml Vial IVP 03/30/25 14:12 Q2H PRN PAIN SCALE 7-10 (Severe Protocol Ondansetron HCl 4 mg 03/16/25 05:43 03/28/25 00:13 Ondansetron Inj 2 Mg/Ml Inj 2 Ml IVP 04/15/25 05:42 4 mg Q6H PRN Administration NAUSEA OR VOMITING Protocol Zinc Sulfate 220 mg 03/24/25 09:00 03/28/25 08:06 Zinc Sulfate 220 Mg Capsule PO 04/23/25 08:59 220 mg QDAY LIU Administration Plan 55-year-old female with PMHx of HTN, IDDM type II, HFpEF EF 55% on 08/2024, ESRD on HD TTS, presenting with right heel pain. Patient has been consulted to nephrology for managment of ESRD on HD #ESRD on hemodialysis. #Anemia of Chronic Kidney disease -On admission: Cr: 8.8, BUN: 70, eGFR: 5, Hgb: 11.1 MCV: 90 -The patient's hemodialysis session is Saturday, , and Saturday. -Currently, BUN:17, Cr:3.6, eGFR:14 -Hemodialysis sessions: 03/16, 03/18, 03/20, 03/23, 03/26, 03/27 Plan: -Monitor renal function -Maintain fluid restriction, avoid nephrotoxic agents when possible, renally dose medications -Strict i and o #Osteomyelitis of left heel #Left heel ulcer #Lactic Acidosis, resolved #Bilateral PAD of lower extremities, chronic #Diarrhea, chronic #Normocytic anemia #Hx of NIDDM #HFrEF EF 50-55% (03/17/25) #Grade I diastolic dysfunction #Depression -Management per Primary Hospitalist team Thank you for allowing us to participate in the care of your patient. Patient is stable in nephrology standpoint. No further recommendations. Assessment and plan discussed with my attending physician Dr. Marely Melchor (PGY-1)- Internal medicine resident Attending Provider Attestation/Addendum patient currently seen and examined with resident physician Dr. Melchor. Note reviewed, agree with findings and recommendations. Rehab placement is done-can be discharged. Noted possible discharge today. Status post left BKA.
--- NOTE | 2025-03-28 10:09 | ESPR_ITS ---
Documentation for date of: 03/28/25 Subjective Subjective Narrative: Patient is seen and examined. She is resting comfortably Exam Vital Signs Temp Pulse Resp BP Pulse Ox O2 Del Method O2 Flow Rate 97.1 F 97 22 H 158/91 H 95 Room Air 4 03/28/25 07:17 03/28/25 09:54 03/28/25 07:17 03/28/25 09:54 03/28/25 07:17 03/28/25 07:17 03/25/25 13:40 Constitutional Constitutional: no acute distress Routine Extremities Exam Comments: Left BKA stump incision healing well without evidence of infection or bleeding Assessment & Plan Assessment Additional comments: Postop day #3 status post left BKA Plan Dressings removed. Loader Magazine Grinder and stump protector applied. May discharge from surgical standpoint, follow-up with Dr Davey in 3 weeks PROCEDURES: Procedures Left below the knee amputation
[2025-03-28] MEDS: HEPARIN SOD INJ 5000 UNIT/ML VIAL SC (11:11)
--- NOTE | 2025-03-28 14:45 | PC.SS ---
SS attempted to reach Francoise and Brook from [facility] via phone and [place], no response. Messages left for both for call back in regards to DC today for pt.
--- NOTE | 2025-03-28 15:01 | ESPR_ITS ---
Documentation for date of: 03/28/25 Subjective Subjective Interval history: Patient is seen and examined at bedside. Postop day 3 of left BKA and patient is doing well. Denies any other complaints. Still having diarrheal episodes. Pending TTG. vitals are stable. Increased dose of losartan to 100 mg once daily. Anticipate discharge tomorrow once the insurance authorization is done. Dr. Davey is following the patient and patient is stable to discharge from his side. Will stop antibiotics tomorrow Exam Vital Signs Temp Pulse Resp BP Pulse Ox O2 Del Method O2 Flow Rate 97.1 F 83 18 142/81 H 95 Room Air 4 03/28/25 11:36 03/28/25 12:00 03/28/25 11:36 03/28/25 11:36 03/28/25 11:36 03/28/25 11:36 03/25/25 13:40 Narrative Exam Physical Exam General: Awake and in no acute distress. Conversational. HEENT: Normocephalic, atraumatic, mucous membranes moist. Heart: Regular rate and rhythm, normal S1 and S2, no murmurs. Lungs: Clear to auscultation with no wheezing or crackles. Abdomen: Soft, nondistended, nontender, positive bowel sounds. No guarding or rebound tenderness. Neurologic: Alert and oriented x3, no gross neurological deficit, and patient able to move all 4 extremities. Extremities: Left BKA. Dressing clean dry and intact. Multiple healed ulcerations on right leg and hip. No lower extremity edema on right lower extremity. Skin: No rash or ecchymoses. Objective Labs 03/28/25 04:52 03/28/25 04:52 Labs: Laboratory Results - last 24 hr 03/28/25 04:52 WBC 12.8 H RBC 3.29 L Hgb 9.5 L Hct 30.6 L MCV 93 MCH 28.9 MCHC 31.0 RDW Std Deviation 60.4 H Plt Count 273 Neut % (Auto) 78 Lymph % (Auto) 9 L [place] % (Auto) 11 Eos % (Auto) 1 Baso % (Auto) 1 Neut # (Auto) 9.9 H Lymph # (Auto) 1.2 [place] # (Auto) 1.4 H Eos # (Auto) 0.1 Baso # (Auto) 0.1 Immature Gran # (Auto) 0.10 H Absolute Nucleated RBC 0.04 H Immature Gran % 1 H Nucleated RBC % 0 Sodium 139 Potassium 4.2 Chloride 102 Carbon Dioxide 27.1 Anion Gap 10 BUN 17 Creatinine 3.6 H D Estim Creat Clear Calc 16.7 L eGFR 14 L* BUN/Creatinine Ratio 5 L Glucose 91 Calculated Osmolality 279 Calcium 9.3 Quality Measures Quality Measures none Assessment & Plan Assessment Current Active Medications: Generic Name Dose Route Start Last Admin Trade Name Freq PRN Reason Stop Dose Admin Acetaminophen 650 mg 03/27/25 13:22 03/28/25 08:06 Acetaminophen 325 Mg Tablet PO 04/15/25 05:42 650 mg Q6H PRN Administration Fever >100.4 and pain 1-3 Hydrocodone Bitart/Acetaminophen 1 tab 03/27/25 13:23 Hydrocodone/Apap 5/325 Tablet PO 04/01/25 13:22 Q8HR PRN Pain 4-6 Ascorbic Acid 500 mg 03/23/25 21:00 03/28/25 08:06 Ascorbic Acid 250 Mg Tablet PO 04/22/25 20:59 500 mg BID LIU Administration Aspirin 81 mg 03/21/25 13:30 03/28/25 08:06 Aspirin Ec 81 Mg Tabec PO 04/20/25 13:29 81 mg QDAY LIU Administration Atorvastatin Calcium 40 mg 03/19/25 21:00 03/27/25 20:05 Atorvastatin Calcium 20 Mg Tablet PO 04/18/25 20:59 40 mg HS LIU Administration Cholestyramine Resin 1 pkt 03/18/25 09:00 03/28/25 08:07 Cholestyramine/Sucrose 1 Pkt Ea PO 04/17/25 08:59 1 pkt QDAY LIU Administration Dextrose 25 ml 03/16/25 07:31 Dextrose 50%-Water Inj 50 Ml Syringe IV 04/15/25 07:30 Q15MIN PRN BG 50-70 responsive npo pt Dextrose 50 ml 03/16/25 07:31 Dextrose 50%-Water Inj 50 Ml Syringe IV 04/15/25 07:30 Q15MIN PRN BG <50 OR BG <70 & pt unresponsive Glucagon 1 mg 03/16/25 07:31 Glucagon Inj 1 Mg Vial IM Q15MIN PRN BG <70, and no IV access Heparin Sodium (Porcine) 5,000 unit 03/28/25 10:15 03/28/25 11:11 Heparin Sod Inj 5000 Unit/Ml Vial SC 04/11/25 10:14 5,000 unit BID LIU Administration Albumin Human 25 gm in 100 mls @ 100 mls/min 03/16/25 07:48 03/16/25 10:45 Albuminar-25 Ivpb IV 100 mls/min PRN PRN Administration DIALYSIS Cefazolin Sodium/Dextrose 1 gm in 50 mls @ 100 mls/hr 03/28/25 21:00 Ancef Ivpb IV 04/02/25 08:29 HS LIU Insulin Degludec 8 unit 03/27/25 21:00 03/27/25 20:05 Insulin Degludec 5 Unit/0.05 Ml (Per 5 Units) SC 04/26/25 20:59 8 unit HS LIU Administration Insulin Human Lispro 0 unit 03/27/25 11:30 03/28/25 11:15 Insulin Lispro (Admelog) 1 Unit/0.01 Ml Unit SC 04/26/25 11:29 Not Given AC [facility] Protocol Loperamide HCl 2 mg 03/22/25 14:55 Loperamide 2 Mg Capsule PO Q1H PRN DIARRHEA Losartan Potassium 100 mg 03/29/25 09:00 Losartan Potassium 25 Mg Tablet PO 04/28/25 08:59 QDAY LIU Melatonin 3 mg 03/20/25 17:54 Melatonin 3 Mg Tablet PO 04/19/25 20:59 HS PRN insomnia Morphine Sulfate 3 mg 03/25/25 14:13 Morphine Sulf Inj 4 Mg/Ml Vial IVP 03/30/25 14:12 Q2H PRN PAIN SCALE 7-10 (Severe Ondansetron HCl 4 mg 03/16/25 05:43 03/28/25 00:13 Ondansetron Inj 2 Mg/Ml Inj 2 Ml IVP 04/15/25 05:42 4 mg Q6H PRN Administration NAUSEA OR VOMITING Protocol Zinc Sulfate 220 mg 03/24/25 09:00 03/28/25 08:06 Zinc Sulfate 220 Mg Capsule PO 04/23/25 08:59 220 mg QDAY LIU Administration Plan Patient is a 55-year-old female with PMHx of HTN, NIDDM type II with multiple complications, HFpEF EF 50-55%, ESRD on HD TTS, who presented on 03/15 for left heel pain, admitted for osteomyelitits of left leg secondary to left heel ulcer. #Osteomyelitis of left heel #Left heel ulcer #S/p Left BKA #Lactic Acidosis, resolved Presented with left heel pain, with findings of soft tissue infection of the left heel. Denies trauma. Accompanied by lactic acidosis of 3.0, likely combination type B from CKD and less likely type A since no sign sepsis at this point. Blood cultures negative for 48 hours. X-ray left foot shows early osteomyelitis plantar surface of the calcaneus CT left lower extremity shows osteomyelitis calcaneus, with soft tissue infection adjacent to posterior calcaneus. Cellulitis pattern. CTA as below, left leg circulation shows no blockages. S/p 500 cc NS bolus and CFX x 1 in ED. S/p IV Zosyn and vancomycin (03/16-03/17) S/p Cefepime 1 g every other day with dialysis and Doxy 100 p.o. twice daily (03/18-04/26) per ID Plan: - Consulted surgeon Dr. Davey, appreciate recommendations: - Left BKA POD 3 - IV cefazolin (03/26-discharge) ? Wound care following - Stump sleeve and protector provided - PT evaluated: recommend discharge to SNF with daily PT - Zinc and vit C daily to promote wound healing #Bilateral PAD of lower extremities, chronic On exam, lower extremities appeared edematous and warm to touch. Left leg more tender than right. Likely secondary to long history of uncontrolled diabetes and inconsistent medication follow up. Lower extremity duplex shows severe bilateral peripheral obstructive arterial disease, appears to be chronic, similar findings in 08/10/24. CTA abdominal aorta iliofemoral runoff shows multiple significant stenoses involving the mid and distal right posterior tibial artery, no occlusion in the left posterior tibial artery. Patient will greatly benefit from stent placement given poor blood circulation to extremities, will likely improve chances of wound healing in addition to hyperbaric oxygen chamber. Explained to patient her circumstance and discussed risks and benefits of procedure, which patient was eventually agreeable to. Plan: - Consulted vascular surgeon Dr. Arevalo, appreciate recommendations: recommend BKA - Consulted mixer tender Dr. Barclay, appreciate recommendations: Cleared from cardiology standpoint for BKA - CTM pulses and healing ulcers - Aspirin 81mg once daily #Diarrhea, chronic Reports at least 1 month history of loose stools, 6-7 episodes per day. Denies fevers, nausea, vomiting, hematochezia, melena. Took loperamied 2 mg prn at home without much improvement. Given chronic nature, possibly IBS versus malabsorption versus medication induced. Previously had GI workup for same chronic diarrhea. Colonoscopy 08/14/2024 showed medium polyp on proximal ascending colon and hemorrhoids but otherwise unremarkable. Biopsies were negative for microscopic colitis and dysplasia. Stool calprotectin 03/17 56. Negative for Campylobacter, E coli Shiga tox, Salmonella, Shigella. Giardia negative. Note, stool calprotectin and Giardia were negative back in August 2024. Plan: - Cholestyramine 4g daily - Loperamide 2 mg prn - Follow-up TTG - CTM bowel movements or signs of infection - Recommend outpatient stool studies work up #ESRD on HD TTS Last hemodialysis on Saturday, renal panel appears at baseline. Follows Dr. Yap outpatient. Dialysis sessions: 03/16 (-3.2L), 03/18 (-3.4L), 03/20 (-3.0 L), 03/23, 03/26, 03/27 ? Remote Medical Coder Dr. Yap consulted, appreciate recommendations ? TTS HD schedule - Outpatient HD with transportation arranged - Renally dose medications - Avoid nephrotoxic agents #Normocytic anemia Hgb baseline 10-11. Iron panel showed low iron, TIBC, and saturation. Likely combination of ANSELMO and anemia of chronic disease secondary to renal failure. Vit B12 and folate WNL. - Start on iron supplements upon discharge - HD as above #Hx of NIDDM A1c 7.1 from 08/2024. Glucose 152 on admission. A1c 7.7 on 03/16. Does not take any medications for her diabetes at home. - Start degludec 8 units nightly ? INSULIN sliding scale ? Accu-Cheks #HFpEF EF 50-55% (03/17/25) #Grade I diastolic dysfunction Echo 08/2024: EF 55%. Hypokinetic anterior septal wall motion. RV is mildly dilated with moderately decreased systolic function. Estimated RVSP, 47mmHg. RAP 15. Mild MR. Has bilateral lower extremity edema likely combination HFpEF and ESRD. Echo 03/17 shows EF 50 to 55%, grade 1 diastolic dysfunction and hypokinetic anterior septal wall motion. RV mildly dilated with moderately decreased systolic function. Normal LV size. Mild MR. Moderate TR and mild PI. S/p 500 cc IVF for above-mentioned lactic acidosis. No signs or symptoms of CHF exacerbation. Plan: ? Hemodialysis as above - Avoid aggressive fluid resuscitation #Depression Endorses more frequent days of fatigue and trouble falling asleep over the past 2 weeks however reports she still enjoys cooking for her family and is eating well. Denies thoughts of self-harm. Patient appeared to be very discouraged during this admission, likely secondary to discussions of possible amputation and vascular surgery procedure. Per above, patient likely has mild to moderate depression. Plan: - Not interested in starting therapy/counseling or medication for mood management at this time Health Maintenance Disposition: management of left foot diabetic ulcer and osteomyelitis DVT prophylaxis: heparin GI prophylaxis: protonix Bowel: Senna Diet: Carb consistent CODE STATUS: FULL Patient plan of care was discussed with the attending physician, Dr. Violeta Garcia, PGY2 Attending Provider Attestation/Addendum I have examined the patient, reviewed labs and imaging findings, discussed the case with the resident(s), and reviewed entered orders. I agree with the plan of care as outlined in this note, with these additional summaries/recommendations: Patient seen at bedside. No acute overnight events. Patient is postoperative day #3 status post left BKA. She tolerated procedure well and currently reports her pain is controlled. Will continue IV Ancef. Leukocytosis improving. No growth on blood cultures. Continue wound care. Physical therapy. Stump protector provided. Continue tight glycemic control. Patient is pending placement and anticipate discharge to SNF within the next 24 to 48 hours. In- house nephrology following for end-stage renal disease. Patient received HD today 03/27. Renally dose medications and avoid nephrotoxic agents. Patient updated on the plan and in agreement. All questions answered to satisfaction. Please see residents note for additional details and management. Dr. Violeta MD
--- NOTE | 2025-03-28 15:49 | PC.SS ---
SS attempted to set up transport via [employer] and was unsuccessful, SS was transferred multiple times, therefore SIN will be granted. SS set up time with [facility]enna for 1800 going to [facility]. RNMichelle made aware. Packet left on physical chart.
--- NOTE | 2025-03-28 18:06 | PC.NURSE ---
@[id number] give report to Martha Barnett at [facility].
--- NOTE | 2025-03-28 19:21 | PD.RESDS ---
Planned Discharge Date 03/28/25 DS: Providers Provider Date of admission: 03/16/25 05:43 Primary care physician: Miguel Yoder MD Admitting Provider: Brigid Carey MD Attending Provider on Admission: Hima Mcdaniel MD Consults: 03/16/25 05:41 Consult to Nephrology Routine Comment: HD TTS Consulting Provider: Diego Yap 03/16/25 06:43 Consult to General Surgery Stat Comment: LLE cellulitis, concern for nec fascitis Consulting Provider: Yolanda Davey 03/16/25 11:12 Consult to Infectious Diseases Routine Comment: Osteomyelitis of calcaneus Consulting Provider: Kingsley Banuelos 03/16/25 12:37 Referral Nutritional Services Routine Comment: Wounds Referral OP Wound Healing Dept Routine Comment: Left heel Referral Wound Care Routine Comment: Left heel 03/19/25 08:26 Referral Physical Therapy Routine Comment: Physician Instructions: 03/19/25 13:39 Consult to Physician Routine Comment: PAD Consulting Provider: Kevan Arevalo 03/19/25 13:40 Consult to Cardiology Routine Comment: Cardiac clearance for leg angioplasty Consulting Provider: Surjit Barclay 03/20/25 11:03 Referral Registered Dietitian Routine Comment: Attending Provider on DC: Adin Garcia MD Discharging Provider: Adin Garcia MD DS: Diagnosis Problem List Completed Was Problem List Reviewed/Reconciled?: Yes Hospital Course Hospital Course Hospital course: A 55-year-old female with PMHx of HTN, IDDM type II, HFpEF EF 55% on 08/2024, ESRD on HD TTS, presenting with right heel pain and admitted for Sepsis 2/2 Osteomyelitis of left foot. Initial labs are significant for elevated WBC, 16.6, lactate 3, CRP 15.6, Pro-Antwan 13.76, ESR 124, creatinine 8.8, anion gap 18. X-ray of left foot showed early osteomyelitis of the plantar surface of the calcaneus. CT left lower extremity showed osteomyelitis calcaneus, with soft tissue infection adjacent to posterior calcaneus. [employer] Dean, Dr. Yap is consulted for hemodialysis. Patient was started on Zosyn and vancomycin. General surgeon, Dr. Davey was consulted and he recommended left BKA but patient denied it. Blood cultures did not show any growth. Later infectious disease specialist, Dr Banuelos is consulted and he recommended to continue cefepime and doxycycline. Duplex of bilateral lower extremities showed severe bilateral PAD for which CTA abdominal aorta iliofemoral runoff was done and it showed multiple significant stenosis involving the mid and distal right posterior tibial artery. Patient was started on aspirin and atorvastatin for the PAD. Vascular surgeon, Dr. Arevalo is consulted and he recommended strict blood sugar control and reported that patient would benefit from left BKA. Later patient agreed for below-knee amputation for which Dr. Davey was consulted again and left BKA was done on 03/25/2025 and the procedure went uneventful. Patient was treated with 3 days of antibiotics with cefazolin as per Dr. Davey and later patient was discharged to SNF for rehabilitation. Patient also noted to have chronic diarrhea for which she got extensive workup during the past but did not find to have any significant diagnosis even with colonoscopy with biopsy. Celiac disease antibiotics were sent, which also came back negative. Patient is discharged to home with the following medications and recommendations Take cholestyramine 4g powder once a day for diarrhea Take sevelamer 800mg tablet before every meal three times a day for elevated phosphorous Start to take aspirin 81 mg once daily, atorvastatin 40 mg at bedtime, insulin degludec 8 units subcutaneous at bedtime, losartan 100 mg once daily. Take [place] as needed for the pain Please continue going to all scheduled dialysis appointments Follow-up with Dr. Yap (nephrology) within 1-2 weeks after discharge Follow-up with your Primary Care Provider within 1 week of discharge - or follow-up at [facility] [address] [place], [place] [id number] 1) Follow up at [facility], [address] [place] [address]. Call [phone] for appointment. If your symptoms worsen or if you develop new chest pain, shortness of breath, severe abdominal pain or bleeding - please come back to the ED immediately Patient plan of care was discussed with the attending physician, Dr. Violeta Garcia, PGY2 Time Spent with Patient Time attestation: Total time spent providing and/or coordinating discharge services: Time spent: Greater than 30 minutes Exam Vital Signs Temp Pulse Resp BP Pulse Ox O2 Del Method O2 Flow Rate 97.1 F 87 18 152/88 H 92 L Room Air 4 09/21/25 15:59 03/28/25 16:00 03/28/25 15:59 03/28/25 15:59 03/28/25 15:59 03/28/25 15:59 03/25/25 13:40 Narrative Exam Physical Exam General: Awake and in no acute distress. Conversational. HEENT: Normocephalic, atraumatic, mucous membranes moist. Heart: Regular rate and rhythm, normal S1 and S2, no murmurs. Lungs: Clear to auscultation with no wheezing or crackles. Abdomen: Soft, nondistended, nontender, positive bowel sounds. No guarding or rebound tenderness. Neurologic: Alert and oriented x3, no gross neurological deficit, and patient able to move all 4 extremities. Extremities: Left BKA. Dressing clean dry and intact. Multiple healed ulcerations on right leg and hip. No lower extremity edema on right lower extremity. Skin: No rash or ecchymoses. Discharge Plan Plan Patient Disposition: Xfer Skilled Nsg Fac (SNF) Patient condition on transfer: Stable Care Plan Goals: Take cholestyramine 4g powder once a day for diarrhea Take sevelamer 800mg tablet before every meal three times a day for elevated phosphorous Start to take aspirin 81 mg once daily, atorvastatin 40 mg at bedtime, insulin degludec 8 units subcutaneous at bedtime, losartan 100 mg once daily. Take [place] as needed for the pain Please continue going to all scheduled dialysis appointments Follow-up with Dr. Yap (nephrology) within 1-2 weeks after discharge Follow-up with your Primary Care Provider within 1 week of discharge - or follow-up at [facility] [address] [place], [place] [phone] 1) Follow up at [facility], [address] [place] [address]. Call [phone] for appointment. If your symptoms worsen or if you develop new chest pain, shortness of breath, severe abdominal pain or bleeding - please come back to the ED immediately Prescriptions/Referrals Prescriptions/Med Rec: New sevelamer carbonate 800 mg tablet 800 mg PO TID 30 Days Qty: 90 0RF Rx Instructions: must administer with a meal/food cholestyramine 4 gram powder 4 g PO QDAY Qty: 201.6 0RF Rx Instructions: administer w/meal; avoid other meds within 1hr before or 4-6hr after dose atorvastatin 20 mg Tablet 40 mg PO HS Qty: 30 0RF loperamide 2 mg Capsule 2 mg PO Q1H PRN (Reason: Diarrhea) Qty: 30 0RF hydrocodone-acetaminophen 5-325 mg Tablet 1 tab PO Q8HR MDD 15 PRN (Reason: Pain 4-6) Qty: 15 0RF melatonin 3 mg Tablet 3 mg PO HS PRN (Reason: insomnia) Qty: 30 0RF aspirin 81 mg Tablet,Delayed Release (Dr/Ec) 81 mg PO QDAY Qty: 30 0RF ascorbic acid (vitamin C) [Vitamin C] 250 mg Tablet 500 mg PO BID Qty: 30 0RF losartan 25 mg Tablet 100 mg PO QDAY Qty: 30 0RF cholestyramine (with sugar) 4 gram Powder In Packet 1 pkt PO QDAY Qty: 30 0RF insulin degludec 100 unit/mL (3 mL) insulin pen 8 unit subcut HS Qty: 3 0RF Discontinued loperamide [Anti-Diarrheal (loperamide)] 2 mg capsule 2 mg PO Q6H PRN (Reason: loose stool) Qty: 14 0RF Referrals: Migeul Yoder MD [Primary Care Provider, Family Practice] Diego Yap MD [Physician, Nephrology] Patient/Caregiver Discharge Instructions Education Materials: Diabetes and Heart Disease, Coping with Kidney Failure, Diabetes and Kidney Disease, Amputation What to Expect After, Diabetes Carbs Fats Protein, Diabetes and High Blood Pressure Print Language: Senegalese Activity Restrictions/Additional Instructions: May shower. Apply BKA stump drum handler and protector at all times. Follow-up with Dr Davey in 3 weeks, please call [phone] for an appointment. Stand Alone Forms: Samantha Award Info., Patient Portal Info Letter Discharge Order Discharge Orders: Discharge (Routine); Ordered 03/28/25 Ordered By: Adin Garcia Quality Discharge Quality Measures VTE prophylaxis Attestestation Attestation I have examined the patient, reviewed labs and imaging findings, discussed the case with the resident(s), and reviewed entered orders. I agree with the plan of care as outlined in this note. Time Spent: [address] Violeta MD
[2025-03-29 09:17] LABS: (tTG) Ab, IgA <1.0 U/mL; (tTG) Ab, IgG 2.7 U/mL
== END 2025-03-28 18:25 | disposition skilled nursing facility (03) | DRG 710 ==
LOC: SERX 05:48 → SERHOLD 06:40 → S3NX 08:14
PROVIDERS: Internal Medicine Infectious Disease; Physician Assistant; Student in an Organized Health Care Education/Training Program; Surgery; Admitting Provider Student in an Organized Health Care Education/Training Program; Emergency Provider Emergency Medicine; PCP Family Medicine; Visit Provider Student in an Organized Health Care Education/Training Program
PROC: 0Y6J0Z1 Detachment at Left Lower Leg, High, Open Approach (ICD-10-PCS; CPT 27880; principal; 2025-03-25 11:15)
DX: A41.9 Sepsis, unspecified organism (principal); E11.69 Type 2 diabetes mellitus with other specified complication; I50.42 Chronic combined systolic (congestive) and diastolic (congestive) heart failure; E11.621 Type 2 diabetes mellitus with foot ulcer; E11.22 Type 2 diabetes mellitus with diabetic chronic kidney disease; I13.2 Hypertensive heart and chronic kidney disease with heart failure and with stage 5 chronic kidney disease, or end stage renal disease; N18.6 End stage renal disease; D63.1 Anemia in chronic kidney disease; E11.52 Type 2 diabetes mellitus with diabetic peripheral angiopathy with gangrene; F32.A Depression, unspecified; K74.60 Unspecified cirrhosis of liver; L03.115 Cellulitis of right lower limb; M86.8X7 Other osteomyelitis, ankle and foot; I96 Gangrene, not elsewhere classified; L89.623 Pressure ulcer of left heel, stage 3; Z74.01 Bed confinement status; Z79.4 Long term (current) use of insulin; Z79.84 Long term (current) use of oral hypoglycemic drugs; Z79.899 Other long term (current) drug therapy; S90.822A Blister (nonthermal), left foot, initial encounter; Z86.0100 Personal history of colon polyps, unspecified; Z87.442 Personal history of urinary calculi; Z99.2 Dependence on renal dialysis
CPT/HCPCS: 36415; 73630; 73700; 75635; 80048; 80053; 80061; 80202; 82607; 82746; 83036; 83540; 83550; 83605; 83735; 83993; 84100; 84145; 85025; 85652; 86140; 86364; 86703; 87015; 87040; 87045; 87046; 87081; 87205; 87329; 87899; 93225; 93306; 93925; 96365; 97162; 99284; A4217; A4649; J0131; J0689; J0690; J0692; J0696; J1100; J1644; J1815; J2405; J2470; J2543; J2704; J2765; J3010; J3373; J3475; J3490; J7050; J7120; P9047; Q5105; Q9967; S0077; A9270; J0737

== ENCOUNTER → 2025-04-08 | Outpatient (CLI) | payer MEDICAID, SELFPAY | END | disposition home or self-care (01) | LOC: SWHD 08:07 | PROVIDERS: PCP Family Medicine; Referring Provider Family Medicine; Visit Provider Student in an Organized Health Care Education/Training Program | DX: T81.89XA Other complications of procedures, not elsewhere classified, initial encounter (principal); E11.621 Type 2 diabetes mellitus with foot ulcer; S81.802A Unspecified open wound, left lower leg, initial encounter; X58.XXXA Exposure to other specified factors, initial encounter; L97.812 Non-pressure chronic ulcer of other part of right lower leg with fat layer exposed; I10 Essential (primary) hypertension; I73.9 Peripheral vascular disease, unspecified; N18.6 End stage renal disease; R60.0 Localized edema; Z99.2 Dependence on renal dialysis; Z89.512 Acquired absence of left leg below knee | CPT/HCPCS: 99214; A9270; G0463 ==

== ENCOUNTER → 2025-04-15 | Outpatient (CLI) | payer MEDICAID, SELFPAY | END | disposition home or self-care (01) | PROVIDERS: PCP Family Medicine; Referring Provider Family Medicine; Visit Provider Student in an Organized Health Care Education/Training Program | DX: T81.89XA Other complications of procedures, not elsewhere classified, initial encounter (principal); E11.621 Type 2 diabetes mellitus with foot ulcer; S81.802A Unspecified open wound, left lower leg, initial encounter; X58.XXXA Exposure to other specified factors, initial encounter; L97.812 Non-pressure chronic ulcer of other part of right lower leg with fat layer exposed; I10 Essential (primary) hypertension; I73.9 Peripheral vascular disease, unspecified; N18.6 End stage renal disease; R60.0 Localized edema; Z99.2 Dependence on renal dialysis; Z89.512 Acquired absence of left leg below knee | CPT/HCPCS: 99214; A9270; G0463 ==

== ENCOUNTER → 2025-04-22 | Outpatient (CLI) | payer MEDICAID, SELFPAY | END | disposition home or self-care (01) | LOC: SWHD 09:28 | PROVIDERS: PCP Family Medicine; Referring Provider Family Medicine; Visit Provider Student in an Organized Health Care Education/Training Program | DX: T81.89XA Other complications of procedures, not elsewhere classified, initial encounter (principal); E11.621 Type 2 diabetes mellitus with foot ulcer; S81.802A Unspecified open wound, left lower leg, initial encounter; X58.XXXA Exposure to other specified factors, initial encounter; L97.812 Non-pressure chronic ulcer of other part of right lower leg with fat layer exposed; I73.9 Peripheral vascular disease, unspecified; N18.6 End stage renal disease; R60.0 Localized edema; Z99.2 Dependence on renal dialysis; Z89.512 Acquired absence of left leg below knee; I12.0 Hypertensive chronic kidney disease with stage 5 chronic kidney disease or end stage renal disease | CPT/HCPCS: 11042; A9270 ==

== ENCOUNTER 2025-04-28 13:32 | Emergency (ER) | payer MEDICAID, SELFPAY ==
[2025-04-28 13:34] VITALS: BP 136/76; PULSE 81; RESP 18; TEMP 36.8; O2SAT 97
[2025-04-28 14:24] VITALS: PULSE 91; RESP 16; O2SAT 98; BMI 28.5
--- NOTE | 2025-04-28 14:38 | PD.EDWOUND ---
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 Davey presents to the ED BIBA from [facility] for evaluation of left BKA wound. Per medics, [place] staff reported the patient had marisela removed by Dr. Davey yesterday and while changing the dressing today, noted the wound to be open. In the ED, patient has no other concerns or complaints. Denies fevers, chills. Related Data Previous Rx's ?Medication ?Instructions ?Recorded cholestyramine 4 gram oral powder 4 g PO QDAY #201.6 grams 03/18/25 ascorbic acid (vitamin C) 250 mg 500 mg (2 x 250 mg) PO BID #30 tabs 03/28/25 tablet (Vitamin C) aspirin 81 mg tablet,delayed 81 mg PO QDAY #30 tabs 03/28/25 release atorvastatin 20 mg tablet 40 mg (2 x 20 mg) PO HS #30 tabs 03/28/25 cholestyramine (with sugar) 4 gram 1 pkt PO QDAY #30 ea 03/28/25 powder for susp in a packet hydrocodone 5 mg-acetaminophen 325 1 tab PO Q8HR PRN Pain 4-6 #15 tabs 03/28/25 mg tablet insulin degludec 100 unit/mL (3 8 unit (0.08 mL) subcut HS #3 mL 03/28/25 mL) subcutaneous pen loperamide 2 mg capsule 2 mg PO Q1H PRN Diarrhea #30 caps 03/28/25 losartan 25 mg tablet 100 mg (4 x 25 mg) PO QDAY #30 tabs 03/28/25 melatonin 3 mg tablet 3 mg PO HS PRN insomnia #30 tabs 03/28/25 Allergies Allergy/AdvReac Type Severity Reaction Status Date / Time No Known Allergies Allergy Verified 03/16/25 00:43 Review of Systems Review of Systems Systems Reviewed: All systems reviewed, normal except as documented Past Medical History Past Medical History CARDIAC: Positive Hypercholesterolemia, Congestive Heart Failure, Edema and Hypertension GENITOURINARY: Positive Genitourinary Disorders, Renal Disease, Kidney Stones and Dialysis REPRODUCTIVE: Positive Previous Pregnancies MUSCULOSKELETAL: Positive Musculoskeletal Disorders and Arthritis ENT: Positive Cataracts ENDOCRINE: Positive Endocrine Disorders and Diabetes Mellitus Type 2 HEMATOLOGIC: Positive Blood Disorders and Anemia OTHER HISTORY: Positive Hospitalization and Chicken Pox Family History FAMILY HISTORY: Positive Family Cardiac Disorders Surgical History SURGICAL: Positive Tubal Ligation Social History SMOKING STATUS: Never smoker SECOND HAND EXPOSURE: No SUBSTANCE USE: does not use ED Exam Narrative Physical exam: GENERAL APPEARANCE:? alert and oriented x 4, well-developed, well-nourished, no acute distress HEENT: normocephalic, atraumatic NECK: supple LUNGS: no respiratory distress, normal effort HEART: good peripheral perfusion ABDOMEN: non distended EXTREMITIES:?Left BKA wound is dehisced and open about 10cm with coagulating blood, no erythema NEUROLOGIC: awake; alert and oriented x4; cranial nerves II-XII grossly intact PSYCHIATRIC:? appropriate mood and affect SKIN: warm, dry, normal color; no rashes Course Course Course Narrative: 1437: I sent surgeon Dr. Davey a picture via secured text. He is requesting a wet to dry dressing and can be discharged back to SNF with outpatient follow up. Patient will be discharged back to SNF. Quality Measures none Vital Signs Vital signs: Vital Signs Temperature 98.3 F 04/28/25 13:34 Pulse Rate 81 04/28/25 13:34 Respiratory Rate 18 04/28/25 13:34 Blood Pressure 136/76 H 04/28/25 13:34 Pulse Oximetry (%) 97 04/28/25 13:34 Oxygen Delivery Method Room Air 04/28/25 13:34 Pulse ox is 97% on room air which is adequate. Wound / Laceration MDM Narrative MDM Narrative:: Jacqui De Los Santos am scribing for and in the presence of Dr. Lamb. Patient data External records reviewed:: [facility] previous records, EMS form and Penitentiary records (I reviewed pmhx and medication list from [facility] ) Clinical information provided by:: patient and EMS Social determinants that could affect healthcare access:: housing (SNF resident ) Patient has the following chronic illnesses:: HFpEF (EF 55% on 08/2024), hypertension, diabetes, ESRD on HD T//Sat, 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 Davey How is presenting disease/condition affected by chronic disease/condition?: exacerbated by Evaluation data The following diagnostics were reviewed and interpreted by me:: other (specify) (No diagnostics ordered ) Lab and/or radiology exams considered but not ordered:: None Interpretation Summary: N/A Medications / Prescriptions Medications or Prescriptions considered but not ordered:: None Medication administrations:: None Consultations Consultation(s) initiated? (list below): No Diagnosis Wound Differential Diagnosis: laceration, abscess and abrasion Most likely diagnosis given after review of the tests above:: Surgical wound dehiscence Admission Indicated Admission indicated?: not indicated Admission Request Was there a request for admission?: No Disposition Plan Disposition Plan: Discharge Discharge Attestation Discharge Attestation: The patient and all family members were given an opportunity to ask questions and understood the discharge instructions. Discharge instructions specifically effects, indications for sooner follow up or return to the emergency department, and the expected course of current diagnosis. Patient condition: Stable Discharge Plan Plan Patient Disposition: Xfer Skilled Nsg Fac (SNF) Prescriptions/Referrals Prescriptions/Med Rec: No Action cholestyramine 4 gram powder 4 g PO QDAY Qty: 201.6 0RF Rx Instructions: administer w/meal; avoid other meds within 1hr before or 4-6hr after dose atorvastatin 20 mg Tablet 40 mg PO HS Qty: 30 0RF loperamide 2 mg Capsule 2 mg PO Q1H PRN (Reason: Diarrhea) Qty: 30 0RF hydrocodone-acetaminophen 5-325 mg Tablet 1 tab PO Q8HR MDD 15 PRN (Reason: Pain 4-6) Qty: 15 0RF melatonin 3 mg Tablet 3 mg PO HS PRN (Reason: insomnia) Qty: 30 0RF aspirin 81 mg Tablet,Delayed Release (Dr/Ec) 81 mg PO QDAY Qty: 30 0RF ascorbic acid (vitamin C) [Vitamin C] 250 mg Tablet 500 mg PO BID Qty: 30 0RF losartan 25 mg Tablet 100 mg PO QDAY Qty: 30 0RF cholestyramine (with sugar) 4 gram Powder In Packet 1 pkt PO QDAY Qty: 30 0RF insulin degludec 100 unit/mL (3 mL) insulin pen 8 unit subcut HS Qty: 3 0RF Referrals: Yolanda Davey MD [Physician, General Surgery] Problem List Clinical Impression: Surgical wound dehiscence Patient/Caregiver Discharge Instructions Education Materials: ED Post Op Wound Check, General Additional Instructions: Continue wet to dry dressings until healed. Follow up with Dr. Davey. Call office for appointment. Print Language: Hebrew Stand Alone Forms: Samantha Award Info., Patient Portal Info Letter
--- NOTE | 2025-04-28 14:42 | PC.NURSE ---
PATIENT GRADY FROM [facility] FOR LEFT BKA INCISION WOUND. PATIENT HAD RECENT BKA ON 03/25/2025. PER STAFF AT FACILITY PATIENT'S SUTURES WERE RECENTLY REMOVED AND INCISION HAS NOT FULLY CLOSED. DR. ANDERSEN ORDERED WET TO DRY DRESSING TO BE PLACED AND PATIENT WILL MORE THAN LIKELY BE DISCHARGED.
[2025-04-28 14:59] VITALS: BP 123/65; PULSE 78; RESP 19; TEMP 36.3; O2SAT 98
--- NOTE | 2025-04-28 15:23 | PC.NURSE ---
Sruthi from s/s will set up transport back to [facility] transitional
--- NOTE | 2025-04-28 15:53 | PC.CC ---
ASW arranged transportation for 1900 via [facility] to [facility].
--- NOTE | 2025-04-28 15:55 | PC.NURSE ---
[facility] CALLED TO CONFIRM P/U FOR PATIENT TO TRANSPORT BACK TO [facility] AT 1900.
[2025-04-28 16:14] VITALS: BP 144/75; PULSE 77; RESP 18; TEMP 36.4; O2SAT 97
[2025-04-28 17:44] VITALS: BP 134/96; PULSE 87; RESP 18; O2SAT 98
== END 2025-04-28 17:49 | disposition skilled nursing facility (03) ==
LOC: SERX 14:51
PROVIDERS: Emergency Provider Emergency Medicine; PCP Family Medicine
DX: T81.31XA Disruption of external operation (surgical) wound, not elsewhere classified, initial encounter (principal)
CPT/HCPCS: 99283

== ENCOUNTER → 2025-04-29 | Outpatient (CLI) | payer MEDICAID, SELFPAY | END | disposition home or self-care (01) | LOC: SWHD 10:50 | PROVIDERS: PCP Family Medicine; Referring Provider Family Medicine; Visit Provider Student in an Organized Health Care Education/Training Program | DX: T81.89XA Other complications of procedures, not elsewhere classified, initial encounter (principal); E11.621 Type 2 diabetes mellitus with foot ulcer; S81.802A Unspecified open wound, left lower leg, initial encounter; X58.XXXA Exposure to other specified factors, initial encounter; L97.812 Non-pressure chronic ulcer of other part of right lower leg with fat layer exposed; I73.9 Peripheral vascular disease, unspecified; N18.6 End stage renal disease; R60.0 Localized edema; Z99.2 Dependence on renal dialysis; Z89.512 Acquired absence of left leg below knee; I12.0 Hypertensive chronic kidney disease with stage 5 chronic kidney disease or end stage renal disease | CPT/HCPCS: 11042; A9270 ==

== ENCOUNTER → 2025-05-06 | Outpatient (CLI) | payer MEDICAID, SELFPAY | END | disposition home or self-care (01) | LOC: SWHD 13:03 | PROVIDERS: PCP Family Medicine; Referring Provider Family Medicine; Visit Provider Student in an Organized Health Care Education/Training Program | DX: T81.89XA Other complications of procedures, not elsewhere classified, initial encounter (principal); E11.621 Type 2 diabetes mellitus with foot ulcer; S81.802A Unspecified open wound, left lower leg, initial encounter; X58.XXXA Exposure to other specified factors, initial encounter; L97.812 Non-pressure chronic ulcer of other part of right lower leg with fat layer exposed; I73.9 Peripheral vascular disease, unspecified; N18.6 End stage renal disease; R60.0 Localized edema; Z99.2 Dependence on renal dialysis; Z89.512 Acquired absence of left leg below knee; I12.0 Hypertensive chronic kidney disease with stage 5 chronic kidney disease or end stage renal disease | CPT/HCPCS: 99214; A9270; G0463 ==

== ENCOUNTER → 2025-05-13 | Outpatient (CLI) | payer MEDICAID, SELFPAY | END | disposition home or self-care (01) | PROVIDERS: PCP Family Medicine; Referring Provider Family Medicine; Visit Provider Student in an Organized Health Care Education/Training Program | DX: T81.89XA Other complications of procedures, not elsewhere classified, initial encounter (principal); S81.802A Unspecified open wound, left lower leg, initial encounter; X58.XXXA Exposure to other specified factors, initial encounter; E11.621 Type 2 diabetes mellitus with foot ulcer; L97.812 Non-pressure chronic ulcer of other part of right lower leg with fat layer exposed; I73.9 Peripheral vascular disease, unspecified; N18.6 End stage renal disease; R60.0 Localized edema; Z99.2 Dependence on renal dialysis; Z89.512 Acquired absence of left leg below knee; I12.0 Hypertensive chronic kidney disease with stage 5 chronic kidney disease or end stage renal disease | CPT/HCPCS: 11042; A9270 ==

== ENCOUNTER → 2025-05-20 | Outpatient (CLI) | payer MEDICAID, SELFPAY | END | disposition home or self-care (01) | LOC: SWHD 10:36 | PROVIDERS: PCP Family Medicine; Referring Provider Family Medicine; Visit Provider Student in an Organized Health Care Education/Training Program | DX: T81.89XA Other complications of procedures, not elsewhere classified, initial encounter (principal); E11.621 Type 2 diabetes mellitus with foot ulcer; S81.802A Unspecified open wound, left lower leg, initial encounter; X58.XXXA Exposure to other specified factors, initial encounter; L97.812 Non-pressure chronic ulcer of other part of right lower leg with fat layer exposed; I73.9 Peripheral vascular disease, unspecified; N18.6 End stage renal disease; R60.0 Localized edema; Z99.2 Dependence on renal dialysis; Z89.512 Acquired absence of left leg below knee; I12.0 Hypertensive chronic kidney disease with stage 5 chronic kidney disease or end stage renal disease | CPT/HCPCS: 11042; 11045 ×2; A9270 ==

== ENCOUNTER → 2025-05-27 | Outpatient (CLI) | payer MEDICAID, SELFPAY | END | disposition home or self-care (01) | LOC: SWHD 10:58 | PROVIDERS: PCP Family Medicine; Referring Provider Family Medicine; Visit Provider Student in an Organized Health Care Education/Training Program | DX: T81.89XA Other complications of procedures, not elsewhere classified, initial encounter (principal); S81.802A Unspecified open wound, left lower leg, initial encounter; X58.XXXA Exposure to other specified factors, initial encounter; E11.621 Type 2 diabetes mellitus with foot ulcer; L97.812 Non-pressure chronic ulcer of other part of right lower leg with fat layer exposed; I73.9 Peripheral vascular disease, unspecified; N18.6 End stage renal disease; R60.0 Localized edema; Z99.2 Dependence on renal dialysis; Z89.512 Acquired absence of left leg below knee; I12.0 Hypertensive chronic kidney disease with stage 5 chronic kidney disease or end stage renal disease | CPT/HCPCS: 11042; 11045; A9270 ==

== ENCOUNTER → 2025-06-04 | Outpatient (CLI) | payer MEDICAID, SELFPAY | END | disposition home or self-care (01) | LOC: SWHD 09:09 | PROVIDERS: PCP Family Medicine; Referring Provider Family Medicine; Visit Provider Student in an Organized Health Care Education/Training Program | DX: T81.89XA Other complications of procedures, not elsewhere classified, initial encounter (principal); S81.802A Unspecified open wound, left lower leg, initial encounter; X58.XXXA Exposure to other specified factors, initial encounter; E11.621 Type 2 diabetes mellitus with foot ulcer; L97.812 Non-pressure chronic ulcer of other part of right lower leg with fat layer exposed; I73.9 Peripheral vascular disease, unspecified; N18.6 End stage renal disease; R60.0 Localized edema; Z99.2 Dependence on renal dialysis; Z89.512 Acquired absence of left leg below knee; I12.0 Hypertensive chronic kidney disease with stage 5 chronic kidney disease or end stage renal disease | CPT/HCPCS: 29581 ==

== ENCOUNTER 2025-06-08 07:10 | Inpatient (IN) | payer MEDICAID, SELFPAY ==
[2025-06-08] VITALS (27 sets, daily range): BP systolic 105–158; BP diastolic 45–83; PULSE 55–89; RESP 16–100; TEMP 36.4–40.2; O2SAT 96–100; BMI 29.5; BMI 28.0
--- NOTE | 2025-06-08 07:14 | EKG_ITS ---
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
--- NOTE | 2025-06-08 07:16 | XR_ITS ---
EXAMINATION: Abdominal series 3 views including AP portable upright chest TECHNIQUE: AP portable upright chest AP upright AP supine abdomen total 3 views Date and time: June 08, 2025, 0841 hours, comparison November 21, 2024 INDICATIONS: Abdominal pain today FINDINGS: Mild enlargement cardiac contour Prominent vascular congestion with edema and/or pneumonia in the lung burch There are multiple air distended small bowel loops in the lower abdomen No free air Vascular congestion Severe osteopenia IMPRESSION: Multiple air distended small bowel loops in the lower abdomen, differential would include early small bowel obstruction, consider CT scan abdomen pelvis post intravenous contrast follow-up
--- NOTE | 2025-06-08 07:16 | XR_ITS ---
Examination: CT brain head without contrast. 2-D sagittal coronal reconstructions Date and time of exam: June 08, 2025, 0756 hours COMPARISON: August 08, 2024 INDICATIONS: Altered mental status today CTDI: vol (mGy): 49.8 DLP: (mGycm): 998 Technique: Multiple CT axial sections of the brain have been obtained, 5 mm slice thickness. Contrast has not been administered. 2-D sagittal, coronal reconstructions have been obtained Low dose protocols were performed. One or more of the following dose reduction techniques were used; automated exposure control, adjustment of the mA and/or KV according to patient size, use of iterative reconstruction technique. Findings: No significant ventricular enlargement. Intra-axial or extra-axial hemorrhage density is not seen. No mass effect or midline shift Basal cisterns are not remarkable. Fourth ventricle is midline. Cranial vault intact. Impression: Negative for acute hemorrhage, mass effect or midline shift Advise clinical correlation and follow-up accordingly
--- NOTE | 2025-06-08 07:26 | PD.EDAMS ---
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 Davey presents to the ED BIBA from [facility] for evaluation of altered mental status today. Per medics, [place] staff reported the patient had skipped her dialysis Saturday due to feeling ill. Reportedly last night the nurse noticed patient to be shivering and given Tylenol for a subjective fever. State when the staff checked on her again this morning she was not acting appropriately, prompting calling 911. Per medics, on scene the patient noted to be warm to touch and shivering. Prehospital BS 118. Related Data Previous Rx's ?Medication ?Instructions ?Recorded cholestyramine 4 gram oral powder 4 g PO QDAY #201.6 grams 03/18/25 ascorbic acid (vitamin C) 250 mg 500 mg (2 x 250 mg) PO BID #30 tabs 03/28/25 tablet (Vitamin C) aspirin 81 mg tablet,delayed 81 mg PO QDAY #30 tabs 03/28/25 release atorvastatin 20 mg tablet 40 mg (2 x 20 mg) PO HS #30 tabs 03/28/25 cholestyramine (with sugar) 4 gram 1 pkt PO QDAY #30 ea 03/28/25 powder for susp in a packet hydrocodone 5 mg-acetaminophen 325 1 tab PO Q8HR PRN Pain 4-6 #15 tabs 03/28/25 mg tablet insulin degludec 100 unit/mL (3 8 unit (0.08 mL) subcut HS #3 mL 03/28/25 mL) subcutaneous pen loperamide 2 mg capsule 2 mg PO Q1H PRN Diarrhea #30 caps 03/28/25 losartan 25 mg tablet 100 mg (4 x 25 mg) PO QDAY #30 tabs 03/28/25 melatonin 3 mg tablet 3 mg PO HS PRN insomnia #30 tabs 03/28/25 Allergies Allergy/AdvReac Type Severity Reaction Status Date / Time No Known Allergies Allergy Verified 03/16/25 00:43 Review of Systems Review of Systems ROS Unobtainable: unobtainable due to mental status Past Medical History Past Medical History CARDIAC: Positive Hypercholesterolemia, Congestive Heart Failure, Edema and Hypertension GENITOURINARY: Positive Genitourinary Disorders, Renal Disease, Kidney Stones and Dialysis REPRODUCTIVE: Positive Previous Pregnancies MUSCULOSKELETAL: Positive Musculoskeletal Disorders and Arthritis ENT: Positive Cataracts ENDOCRINE: Positive Endocrine Disorders and Diabetes Mellitus Type 2 HEMATOLOGIC: Positive Blood Disorders and Anemia OTHER HISTORY: Positive Hospitalization and Chicken Pox Family History FAMILY HISTORY: Positive Family Cardiac Disorders Surgical History SURGICAL: Positive Tubal Ligation Social History SMOKING STATUS: Unknown if ever smoked SECOND HAND EXPOSURE: No SUBSTANCE USE: does not use ED Exam Narrative Physical exam: GENERAL APPEARANCE: Altered, does respond to painful stimuli, pale, well-developed, well-nourished HEENT: Normocephalic, atraumatic; pupils equal, round, reactive to light; EOMI; mucous membranes pink, moist; oropharynx clear NECK: Supple LUNGS: CTABL; no wheezes, no rales, no rhonchi HEART: Regular rate, regular rhythm; normal S1, S2; no murmurs ABDOMEN: non distended; normal BS; soft, no tenderness, no guarding, no rebound; no masses, no organomegaly, no hernia EXTREMITIES: Left BKA with wound vac in place NEUROLOGIC: Altered, does respond to painful stimuli PSYCHIATRIC: appropriate mood and affect SKIN: warm, dry, pale; no rashes Course Quality Measures Current suspected stage: sepsis Possible source: unknown Blood cultures ordered: completed in ED Antibiotic ordered: Yes Pertinent labs: 06/08/25 06/08/25 07:33 11:06 Lactic Acid 3.0 H mMol/L 2.6 H mMol/L (0.4-2.0) (0.4-2.0) Procalcitonin 3.41 H ng/ml (0.0-0.49) sepsis Orders Category Date Time Status Admit to Inpatient Status Routine Admission 06/08/25 17:46 Active Patient Condition Routine Admission 06/08/25 17:46 Ordered Bedside Blood Glucose NOW Care 06/08/25 07:[address] Screening NOW Care 06/08/25 09:48 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 06/08/25 07:14 Active Dialysis [Hemodialysis] Urgent Care 06/08/25 09:49 Active EKG (ED ONLY) *Do not use* NOW Care 06/08/25 07:14 Completed Notify provider NEEDED Care 06/08/25 17:46 Active Consult to Nephrology Routine Cons 06/08/25 17:[address] abdomen pelvis w con Stat Exams 06/08/25 09:[address] head/brain wo con Stat Exams 06/08/25 07:16 Completed EKG (ED Only) Stat Exams 06/08/25 07:14 Draft XR abdomen series w chest 1V Stat Exams 06/08/25 07:16 Completed B-Type Natriuretic Peptide Stat Lab 06/08/25 07:33 Completed Blood Culture (Lab) Stat Lab 06/08/25 07:33 Received CBC Stat Lab 06/08/25 07:33 Completed Comprehensive Metabolic Panel Stat Lab 06/08/25 07:33 Completed HCG Qualitative,Urine Stat Lab 06/08/25 09:20 Completed Influenza A & B Rapid Panel Stat Lab 06/08/25 17:08 Ordered Lactate (Lactic Acid) Stat Lab 06/08/25 07:33 Completed Lactic Acid, 3 HR Stat Lab 06/08/25 11:06 Completed Lipase Stat Lab 06/08/25 07:33 Completed Magnesium Stat Lab 06/08/25 07:33 Completed Partial Thromboplastin Time Stat Lab 06/08/25 07:33 Completed Procalcitonin Stat Lab 06/08/25 07:33 Completed Prothrombin Time with INR Stat Lab 06/08/25 07:33 Completed Troponin I Stat Lab 06/08/25 07:33 Completed Urinalysis Stat Lab 06/08/25 09:20 Completed Urine Culture Stat Lab 06/08/25 09:20 Received Acetaminophen Supp [Tylenol Supp] Med 06/08/25 07:52 Discontinued 650 mg DE X1 ONE Albumin Human-Kjda 25% Ivpb [Albuminex 25% Ivpb] Med 06/08/25 11:00 Active 25 gm in 100 ml IV Q30MIN Calcium Gluconate 10% Inj Med 06/08/25 09:39 Discontinued 1 gm IV X1 ONE Sodium Chloride 0.9% 1000 ml [Ns] 1,000 ml Med 06/08/25 08:25 Discontinued IV 999 mls/hr Vancomycin/Ns 1 gm Ivpb 200 ml Med 06/08/25 08:25 Discontinued IV X1 cefTRIAXone/D5w 1gm IV premix [Rocephin/D5w 1gm IV Med 06/08/25 08:22 Discontinued premix] 1 gm in 50 ml IV X1 Code Status Routine Oth 06/08/25 17:46 Ordered Vital Signs Vital signs: Vital Signs Temperature 103.2 F H 06/08/25 07:14 Pulse Rate 80 06/08/25 07:14 Respiratory Rate 16 06/08/25 07:14 Blood Pressure 124/75 06/08/25 07:14 Pulse Oximetry (%) 96 06/08/25 07:14 Oxygen Delivery Method Room Air 06/08/25 07:14 Pulse ox is 96% on room air which is adequate. Altered Mental Status MDM Narrative MDM Narrative:: Jacqui De Los Santos am scribing for and in the presence of Dr. Lamb. 1709: I spoke with hospitalist team B for admission. 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 Davey How is presenting disease/condition affected by chronic disease/condition?: exacerbated by Evaluation data The following diagnostics were reviewed and interpreted by me:: lab results, radiology exam(s) and EKG tracing(s) (EKG @ 09:02 AM, normal sinus rhythm, rate 89, no STEMI. ) Lab and/or radiology exams considered but not ordered:: None Interpretation Summary: Ordering Physician: Stephanie Lamb MD Date of Service: 06/08/25 Procedure(s): CT head/brain wo con Accession Number(s): [id number] cc: Kong Aguilar MD; Stephanie Lamb MD~ Examination: CT brain head without contrast. 2-D sagittal coronal reconstructions Date and time of exam: June 08, 2025, 0756 hours COMPARISON: August 08, 2024 INDICATIONS: Altered mental status today CTDI: vol (mGy): 49.8 DLP: (mGycm): 998 Technique: Multiple CT axial sections of the brain have been obtained, 5 mm slice thickness. Contrast has not been administered. 2-D sagittal, coronal reconstructions have been obtained Low dose protocols were performed. One or more of the following dose reduction techniques were used; automated exposure control, adjustment of the mA and/or KV according to patient size, use of iterative reconstruction technique. Findings: No significant ventricular enlargement. Intra-axial or extra-axial hemorrhage density is not seen. No mass effect or midline shift Basal cisterns are not remarkable. Fourth ventricle is midline. Cranial vault intact. Impression: Negative for acute hemorrhage, mass effect or midline shift Advise clinical correlation and follow-up accordingly Dictated By: Kong Aguilar MD Signed By: <Electronically signed by Kong Aguilar MD in OV> 06/08/25 0754 Ordering Physician: Stephanie Lamb MD Date of Service: 06/08/25 Procedure(s): XR abdomen series w chest 1V Accession Number(s): [id number] cc: Kong Aguilar MD; NO PRIMARY/FAMILY,PHYSICIAN; Stephanie Lamb MD~ EXAMINATION: Abdominal series 3 views including AP portable upright chest TECHNIQUE: AP portable upright chest AP upright AP supine abdomen total 3 views Date and time: June 08, 2025, 0841 hours, comparison November 21, 2024 INDICATIONS: Abdominal pain today FINDINGS: Mild enlargement cardiac contour Prominent vascular congestion with edema and/or pneumonia in the lung burch There are multiple air distended small bowel loops in the lower abdomen No free air Vascular congestion Severe osteopenia IMPRESSION: Multiple air distended small bowel loops in the lower abdomen, differential would include early small bowel obstruction, consider CT scan abdomen pelvis post intravenous contrast follow-up Dictated By: Kong Aguilar MD Signed By: <Electronically signed by Kong Aguilar MD in OV> 06/08/25 0919 Ordering Physician: Stephanie Lamb MD Date of Service: 06/08/25 Procedure(s): CT abdomen pelvis w con Accession Number(s): [id number] cc: Kong Aguilar MD; NO PRIMARY/FAMILY,PHYSICIAN; Stephanie Lamb MD~ Examination: CT abdomen with intravenous contrast CT pelvis with intravenous contrast 2-D coronal reconstructions 2-D sagittal reconstructions Date and time of exam: June 08, 2025, 1535 hours, comparison 03/17/2025 INDICATIONS: Generalized abdominal pain today, renal failure patient, sepsis alert today. CTDI: vol (mGy) 7.93 DLP: (mGycm) 431 Technique: Multiple axial sections of the abdomen and pelvis have been obtained. 64 slice high-resolution scanner used. 3 mm axial sections have been obtained, post intravenous 60 cc [id number] 2-D sagittal, coronal reconstructions obtained. Low dose protocols were performed. One or more of the following dose reduction techniques were used; automated exposure control, adjustment of the mA and/or KV according to patient size, use of iterative reconstruction technique. Findings: Mild to moderate right pleural fluid Prominent vascular congestion Cirrhosis, liver irregular in contour, hepatomegaly 22 cm Anasarca Splenic defect which may represent a perfusion defect Gallbladder wall is thickened but again the patient has ascites No pancreatic mass Atrophic kidneys Thickened gastric mucosa No bowel obstruction Appendix is not diagnostically visualized Atrophic uterus Severe osteopenia IMPRESSION: Hepatomegaly, 22 cm, cirrhosis Recommend ultrasound spleen to exclude 25 mm splenic lesion Moderate ascites Anasarca Gallbladder wall is thickened which may relate to the patient's ascites Gastritis pattern Atrophic kidneys No bowel obstruction Dictated By: Kong Aguilar MD Signed By: <Electronically signed by Kong Aguilar MD in OV> 06/08/25 1555 Medications / Prescriptions Medications or Prescriptions considered but not ordered:: None Medication administrations:: Medication Administration History Acetaminophen (Acetaminophen 500 Mg Tablet) 500 mg PO Q6H PRN PRN Reason: fever >100 or pain 1-3 Stop: 07/08/25 18:15 Dextrose (Dextrose 50%-Water Inj 50 Ml Syringe) 25 ml IV Q15MIN PRN PRN Reason: BG 50-70 responsive npo pt Stop: 07/08/25 18:40 Dextrose (Dextrose 50%-Water Inj 50 Ml Syringe) 50 ml IV Q15MIN PRN PRN Reason: BG <50 OR BG <70 & pt unresponsive Stop: 07/08/25 18:40 Glucagon (Glucagon Inj 1 Mg Vial) 1 mg IM Q15MIN PRN PRN Reason: BG <70, and no IV access Heparin Sodium (Porcine) (Heparin Sod Inj 5000 Unit/Ml Vial) 5,000 unit SC Q12HR [facility] Stop: 06/22/25 19:59 Albumin Human (Albuminex 25% Ivpb) 25 gm in 100 mls @ 100 mls/hr IV Q30MIN PRN PRN Reason: DIALYSIS Last Infusion: 06/08/25 19:14 Dose: Infused Documented By: Admin: 06/08/25 11:15 Dose: 100 mls/hr Documented By: MM Piperacillin Sod/Tazobactam (Sod 4.5 gm/ Sodium Chloride) 100 mls @ 200 mls/hr IV Q12HR [facility]; Protocol Stop: 06/15/25 19:34 Last Admin: 06/08/25 19:55 Dose: 200 mls/hr Documented By: TOMASZ Insulin Human Lispro (Insulin Lispro (Admelog) 1 Unit/0.01 Ml Unit) 0 unit SC [facility]; Protocol Stop: 07/09/25 07:29 Ondansetron HCl (Ondansetron Inj 2 Mg/Ml Inj 2 Ml) 4 mg IVP Q6H PRN; Protocol PRN Reason: NAUSEA OR VOMITING Stop: 07/08/25 18:15 Pharmacy Consult (Pharmacy Renal Dose Adjustment 1 Ea) 1 each XX PRN PRN PRN Reason: Consult Stop: 07/08/25 18:40 Pharmacy Consult (Vancomycin Pharmacy To Dose 1 Each Each) 1 each IV QDAY [facility] Stop: 07/09/25 08:59 Discontinued Medications Acetaminophen (Acetaminophen Supp 650 Mg Supp) 650 mg DE X1 ONE Stop: 06/08/25 07:53 Last Admin: 06/08/25 08:00 Dose: 650 mg Documented By: TM Calcium Gluconate (Calcium Gluconate 10% Inj 1 Gm/10 Ml Vial) 1 gm IV X1 ONE Stop: 06/08/25 09:40 Last Admin: 06/08/25 10:13 Dose: 1 gm Documented By: TM Ceftriaxone Sodium/Dextrose (Rocephin/D5w 1gm Iv Premix) 1 gm in 50 mls @ 100 mls/hr IV X1 ONE Stop: 06/08/25 08:51 Last Infusion: 06/08/25 09:16 Dose: Infused Documented By: Admin: 06/08/25 08:46 Dose: 100 mls/hr Documented By: TM Vancomycin/Sodium Chloride (Vancomycin/Ns 1 Gm Ivpb) 200 mls @ 120 mls/hr IV X1 ONE Stop: 06/08/25 10:04 Last Infusion: 06/08/25 15:36 Dose: Infused Documented By: Infusion: 06/08/25 15:04 Dose: 120 mls/hr Documented By: Infusion: 06/08/25 10:25 Dose: 0 mls/hr Documented By: Admin: 06/08/25 09:16 Dose: 120 mls/hr Documented By: TM Sodium Chloride (Ns) 1,000 mls @ 999 mls/hr IV .Q1H1M ONE Stop: 06/08/25 09:25 See above Consultations Consultation(s) initiated? (list below): Yes Consultation #1 (Physician, Specialty, Details): See MDM Diagnosis Most likely diagnosis given after review of the tests above:: AMS SIRS Admission Indicated Admission indicated?: indicated Admission Request Was there a request for admission?: Yes Admission Attestation Admission request attestation: Discussed case with [] from Hospitalist service regarding admission. Discussed patients ED course, exam findings, labs, and radiology results. The Hospitalist [agrees,declines] to accept the patient for admission. Disposition Plan Disposition Plan: Admit Discharge Plan Plan Patient Disposition: Admit Acute Care w/in Hospital Problem List Clinical Impression: Altered mental status, SIRS (systemic inflammatory response syndrome) MD Attestation MD Attestation I or my resident physicians have discussed care with the ED physician and I have made the decision to admit. I have discussed and was present for the essential components of the history, physical examination, diagnosis, and treatment plan with the resident. I agree with the patient's care as documented by the resident and amended herein by me. Jay Membreno DO. Although this document has been carefully reviewed, there may still be some phonetic and other typographical errors. These errors are purely grammatical due to imperfections in the software program and should not be construed in any way to compromise the substance of the patient's medical care during this visit. Patient seen and evaluated in the ED. In short 55-year-old female with a significant past medical history of hypertension, diabetes, HFpEF with an EF of 55%, recent right lower extremity BKA in March 2025, and ESRD on hemodialysis, presented to the ED for acute encephalopathy. Apparently the patient had skipped her dialysis session on Saturday however did receive a session this morning. Subjective rigors and fever were endorsed. Patient was unable to provide any medical history at time of bedside visit however the patient's son was there and was able to fill in some. Patient is from [facility]. In the ED, patient was normotensive, Tmax was 103.2 ?F, patient was on room air SpO2 96%. Significant labs included WBC of 15.6, hemoglobin 11, potassium 6.9, sodium 138, BUN 51 and creatinine 8.8. Anion gap was measured to be at 17. Lactic acid 3.0 but had downtrended to 2.6, troponin 0.144 however may be chronically elevated, urinalysis was dirty however unclear how much urine the patient actually makes, BNP 2773, procalcitonin elevated 3.41. CT abdomen and pelvis significant for multiple air distended small bowel loops in the lower abdomen possibly indicative of SBO, CT head was negative for any acute intracranial pathology to include stroke, EKG demonstrated sinus rhythm however QTc prolonged at 543, and repeat CT abdomen and pelvis demonstrated hepatomegaly, possible splenic lesion, moderate ascites, anasarca, thick gallbladder wall however in the setting of ascites, gastritis, atrophic kidneys, no bowel obstruction was seen. Of note, patient's last echo was in March 2025, demonstrated normal LV size, hypokinetic anterior septal wall motion, grade 1 diastolic dysfunction without a EF of 50 to 55%. RVSP was 47. In the ED, the patient was given ceftriaxone and vancomycin. Patient also started on albumin via nephrology who was consulted by the ED physician. Patient subsequently admitted to acute telemetry for the following significant problems: #Hyperkalemia #Anion gap metabolic acidosis, likely secondary to lactic acidosis #Acute decompensated heart failure exacerbation # Right lower extremity cellulitis # History of left lower extremity BKA with wound VAC in place #?UTI, urinalysis dirty however patient does not produce much urine, may be colonization, unclear if symptomatic #Uremia #Ascites #?Cholecystitis, per imaging thickened gallbladder wall however may be secondary to ascites #Gastritis #Prolonged QTc interval, 543 on initial EKG Plan: Patient admitted to telemetry, blood and urine cultures obtained in ED, patient started on vancomycin and Zosyn, renally dosed for cellulitis, possible UTI and less likely cholecystitis. Nephrology has been consulted for hemodialysis and electrolyte derangements. Patient started on albumin per their recommendations. We have also obtained a right lower extremity CT scan for possible osteomyelitis in setting of multiple skin lesions, the most concerning is 1 on the anterior leonard that is packed. Wound care is also been ordered. For the patient's heart failure, fluid restrict, strict I's and O's and daily weights has been ordered, we must be careful with fluids in the setting of heart failure with preserved ejection fraction in the setting of ESRD. Continue to monitor closely while she is here.
[2025-06-08 07:38] LABS: Lactate (Lactic Acid) 3.0 mMol/L (0.4-2.0)
[2025-06-08 07:40] LABS: Basophils # (Auto) 0.1 Thou/mm3 (0.0-0.2); Basophils % (Auto) 0 % (0-2.5); Eosinophils # (Auto) 0.1 Thou/mm3 (0.0-0.5); Eosinophils % (Auto) 0 % (0-10); Hematocrit 35.1 % (36.0-46.0); Hemoglobin 11.0 g/dL (12.0-16.0); Immature Granulocytes Auto 0.08 Thou/mm3 (0.00-0.00); Lymphocytes # (Auto) 1.0 Thou/mm3 (1.0-4.8); Lymphocytes % (Auto) 6 % (10-50); Mean Corpuscular HGB Conc 31.3 g/dl (31.0-37.0); Mean Corpuscular Hemoglobin 29.4 pg (25.0-35.0); Mean Corpuscular Volume 94 fL (80-100); Monocytes # (Auto) 0.6 Thou/mm3 (0.0-0.8); Monocytes % (Auto) 4 % (0-12); Neutrophils # (Auto) 13.9 Thou/mm3 (1.8-7.7); Neutrophils % (Auto) 89 % (37-80); Nucleated Red Blood Cell # 0.00 Thou/mm3 (0.00-0.00); Nucleated Red Blood Cell % 0 /100 WBC (0); Platelet Count 137 Thou/mm3 (140-440); RDW Standard Deviation 58.6 fL (36.4-46.3); Red Blood Count 3.74 Miln/mm3 (4.00-5.20); White Blood Count 15.6 Thou/mm3 (3.6-11.0)
[2025-06-08] MEDS: ACETAMINOPHEN SUPP 650 MG SUPP PR (08:00)
[2025-06-08 08:04] LABS: B-Type Natriuretic Peptide 2473 pg/mL (0-100)
[2025-06-08 08:19] LABS: Alanine Aminotransferase 17 U/L (10-49); Albumin, Serum 3.9 gm/dL (3.5-5.0); Alkaline Phosphatase 123 U/L (46-116); Anion Gap 17 (7-16); Aspartate Amino Transferase 44 U/L (0-34); BUN/Creatinine Ratio 6 Ratio (12-20); Bilirubin,Total 1.4 mg/dL (0.3-1.2); Blood Urea Nitrogen 51 mg/dL (9-23); Calcium 8.1 mg/dL (8.3-10.6); Calcium (Corrected) 8.2 mg/dL (8.5-10.1); Carbon Dioxide 21.9 mMol/L (20.0-31.0); Chloride 99 mMol/L (98-107); Creatinine (Component) 8.8 mg/dL (0.6-1.3); Glucose 82 mg/dL (74-106); Lipase 36 U/L (12-53); Magnesium 2.6 mg/dL (1.6-2.6); Osmolality,Calculated 288 (275-295); Procalcitonin 3.41 ng/ml (0.0-0.49); Sodium 138 mMol/L (136-145); eGFR 5 See Note
--- NOTE | 2025-06-08 08:20 | PC.NURSE ---
When administering suppository this RN checked a rectal temp on pt, it was 104.4, cooling measures applied at this time. Pt was incont of stool it was light brown, rectum noted to be raw around anus, made aware
[2025-06-08 08:41] LABS: INR 1.3 (0.9-1.3); Partial Thromboplastin Time 27.3 Seconds (22.0-36.0); Prothrombin Time 13.1 Seconds (9.0-12.2)
[2025-06-08] MEDS: cefTRIAXone/D5w 1gm IV premix 1 GM/50 ML BAG IV (08:46)
[2025-06-08] MEDS: VANCOMYCIN/NS 1 GM IVPB 200 ML IV (09:16)
[2025-06-08 09:35] LABS: Collection Type, Urine Catheter; Squamous Epithelial Cell,Urine 0 /hpf (0-5)
[2025-06-08 09:37] LABS: Potassium 6.9 mMol/L (3.4-5.1)
[2025-06-08 09:39] LABS: Bilirubin,Urine Negative (Negative); Blood,Urine 1+ (Negative); Clarity,Urine Clear (Clear/Hazy); Color,Urine Yellow (Lt Yel-Yel); Glucose, Urine Negative (Negative); Ketones,Urine Negative (Negative); Leukocyte Esterase,Urine Negative (Negative); Nitrite,Urine Negative (Negative); PH,Urine 6.5 (5.0-7.0); Protein,Urine 3+ (Neg - Trace); RBC,Urine 16 /hpf (0-3); Specific Gravity,Urine 1.018 (1.001-1.035); Urobilinogen,Urine Negative mg/dL (0.0-1.0); WBC,Urine 11 /hpf (0-5)
[2025-06-08 09:40] LABS: Troponin I 0.144 ng/mL (0.0-0.045)
--- NOTE | 2025-06-08 09:48 | XR_ITS ---
Examination: CT abdomen with intravenous contrast CT pelvis with intravenous contrast 2-D coronal reconstructions 2-D sagittal reconstructions Date and time of exam: June 08, 2025, 1535 hours, comparison 03/17/2025 INDICATIONS: Generalized abdominal pain today, renal failure patient, sepsis alert today. CTDI: vol (mGy) 7.93 DLP: (mGycm) 431 Technique: Multiple axial sections of the abdomen and pelvis have been obtained. 64 slice high-resolution scanner used. 3 mm axial sections have been obtained, post intravenous 60 cc Isovue-370 2-D sagittal, coronal reconstructions obtained. Low dose protocols were performed. One or more of the following dose reduction techniques were used; automated exposure control, adjustment of the mA and/or KV according to patient size, use of iterative reconstruction technique. Findings: Mild to moderate right pleural fluid Prominent vascular congestion Cirrhosis, liver irregular in contour, hepatomegaly 22 cm Anasarca Splenic defect which may represent a perfusion defect Gallbladder wall is thickened but again the patient has ascites No pancreatic mass Atrophic kidneys Thickened gastric mucosa No bowel obstruction Appendix is not diagnostically visualized Atrophic uterus Severe osteopenia IMPRESSION: Hepatomegaly, 22 cm, cirrhosis Recommend ultrasound spleen to exclude 25 mm splenic lesion Moderate ascites Anasarca Gallbladder wall is thickened which may relate to the patient's ascites Gastritis pattern Atrophic kidneys No bowel obstruction
[2025-06-08] MEDS: CALCIUM GLUCONATE 10% INJ 1 GM/10 ML VIAL IV (10:13)
--- NOTE | 2025-06-08 10:22 | PC.NURSE ---
pt to dialysis at this time. hand screen printer aware of temp and cooling measures, will continue during dialysis
[2025-06-08 10:37] LABS: Reflex Lactate? Y
[2025-06-08] MEDS: ALBUMIN HUMAN-KJDA 25% IVPB 25 GM/100 ML BTL IV (11:15)
[2025-06-08 11:16] LABS: Lactic Acid, 3 HR 2.6 mMol/L (0.4-2.0)
--- NOTE | 2025-06-08 11:17 | PC.NURSE ---
BP TRENDING DOWN, PT REMAINS ASYMPTOMATIC. WILL ADMIN PRN ALBUMIN AND CONT. TO MONITOR
--- NOTE | 2025-06-08 11:36 | PC.NURSE ---
PT REPORTS PAOIN TO BOTH LEFT HIP AND [place], BEDSIDE NURSE PERICO NOTIFIED W/ REPORT SHE WILL NOTIFY ER MD FOR PAIN MED ORDER, WILL CONT. TO MONITOR
[2025-06-08 11:40] LABS: HCG Qualitative,Urine Negative
[2025-06-08 13:01] LABS: Albumin/Globulin Ratio 1.2 (1.2-2.2); Globulin 3.2 gm/dL (2.3-3.5); Total Protein 7.1 gm/dL (5.7-8.2)
--- NOTE | 2025-06-08 14:05 | PC.NURSE ---
Resuming pt care to relieve primary RN for lunch break. Pt is currently in dialysis
--- NOTE | 2025-06-08 15:04 | PC.NURSE ---
PT BACK FROM DIALYSIS, RETURNED W/IV MISSING AND COVERED IN 4 BLANKETS.
--- NOTE | 2025-06-08 18:33 | PD.NEPHCONS ---
History of Present Illness Data of Consult Consult date: 06/08/25 Requesting Physician: Hernandez Membreno DO Primary Care Provider: Physician No Primary/Family Consult Narrative Reason for consult: ESRD, need for dialysis History of present illness: Ms. Aguilar is a 54-year-old lady with extensive past medical history of uncontrolled hypertension and diabetes for many years ended up on dialysis 2 years ago under my care and has been coming to dialysis treatments on TTS (noncompliant with treatments due to loose stools) was admitted to the emergency department brought by paramedics with altered mental status and noted to have possible sepsis from the right leg wound. Patient was admitted a couple of months ago and had a left BKA for gangrene. She missed her dialysis session on Saturday. In ED white count 15.6, hemoglobin 11, platelets 137 sodium 138, potassium 6.9, bicarbonate 21.9, BUN 51, creatinine 8.8, blood sugar 82, calcium 8.2, total bilirubin 1.4, AST 44, ALT 17, alk phos 123, BNP 2473, albumin 3.9, Pro-Antwan 3.41, urinalysis shows a WBC 11. Abdominal pelvic CT showed liver cirrhosis with moderate ascites and anasarca. Head CT was negative. Patient will be admitted for sepsis secondary to RLE cellulitis//diabetic wounds. Renal consultation requested for need for emergency dialysis dialysis. Patient currently seen on dialysis. cc:: cc: Hernandez Membreno DO Review of Systems Review of Systems Narrative Review of Systems: Limited review of systems as patient seems to be very sleepy although arousable. Past Medical History Past Medical History NEUROLOGIC: Negative Neurological Disorders or Seizures CARDIAC: Positive Cardiac Disorders, Hypercholesterolemia, Edema and Hypertension; Negative Congestive Heart Failure RESPIRATORY: Negative Chronic Obstructive Pulmonary Disease (COPD) or Asthma GASTROINTESTINAL: Negative Gastrointestinal Disorders or Hepatitis GENITOURINARY: Positive Genitourinary Disorders, Renal Disease, Kidney Stones and Dialysis REPRODUCTIVE: Positive Previous Pregnancies MUSCULOSKELETAL: Positive Musculoskeletal Disorders and Arthritis ENT: Positive Cataracts ENDOCRINE: Positive Endocrine Disorders and Diabetes Mellitus Type 2; Negative Diabetes Mellitus Type 1 HEMATOLOGIC: Positive Blood Disorders and Anemia; Negative Sickle Cell Disease OTHER HISTORY: Positive Hospitalization and Chicken Pox; Negative Autoimmune Disease, Shingles, Blood Transfusions, Blood Transfusion Reaction, Anesthesia Reactions or Cancer Family History FAMILY HISTORY: Positive Family Cardiac Disorders; Negative Family Psychiatric Problems, Family Respiratory Disorders, Family Gastrointestinal Problems, Family Cancer, Family Surgery or Family Anesthesia Reaction Surgical History SURGICAL: Positive Tubal Ligation Social History SMOKING STATUS: Unknown if ever smoked SECOND HAND EXPOSURE: No SUBSTANCE USE: does not use Meds Home Medications and Allergies Home Medications ?Medication ?Instructions ?Recorded ?Confirmed ?Type acetaminophen 325 mg tablet (Pain 650 mg PO Q6H PRN pain 06/08/25 06/08/25 History Relief (acetaminophen)) amino acids-protein hydrolysate 15 1 ea PO DAILY 06/08/25 06/08/25 History gram-100 kcal/30 mL oral liquid (Pro-Stat Sugar Free) diphenhydramine HCl 25 mg capsule 25 mg PO Q6H PRN itching 06/08/25 06/08/25 History (Allergy Relief (diphenhydramine)) sevelamer carbonate 800 mg tablet 800 mg PO .with meals 06/08/25 06/08/25 History vitamin B complex-vitamin C-folic 1 tab PO QDAY 06/08/25 06/08/25 History acid 0.8 mg tablet (Michaelle-Dominick) Allergies Allergy/AdvReac Type Severity Reaction Status Date / Time No Known Allergies Allergy Verified 03/16/25 00:43 Exam Vital Signs Temp Pulse Resp BP Pulse Ox O2 Del Method O2 Flow Rate 37.2 C 77 14 106/50 L 100 Nasal Cannula 2 06/09/25 04:00 06/09/25 06:29 06/09/25 06:29 06/09/25 04:00 06/09/25 06:29 06/09/25 04:00 06/09/25 06:29 Narrative Exam GENERAL APPEARANCE: Patient currently seen in dialysis. Lost weight. CARDIOVASCULAR: Heart regular, no murmurs LUNGS/CHEST: Chest clear to auscultation. No rales, rhonchi, wheezing ABDOMEN: Soft, nontender, nondistended. No masses. Normal bowel sounds. EXTREMITIES: Edema on the right lower extremity SKIN: Significant stasis dermatitis noted. Left leg/heel with 2 wounds MUSCULOSKELETAL: In bed. Left BKA Neurologically barely arousable LYMPHATICS: No lymphadenopathy noted Results Labs 06/10/25 04:30 06/10/25 04:30 Labs: Short CBC 06/08/25 06/09/25 Range/Units 07:33 05:08 WBC 15.6 H 12.1 H (3.6-11.0) Thou/mm3 Hgb 11.0 L 9.7 L (12.0-16.0) g/dL Hct 35.1 L 30.7 L (36.0-46.0) % Plt Count 137 L 134 L (140-440) Thou/mm3 BMP 06/08/25 06/09/25 07:33 05:08 Sodium 138 141 Potassium 6.9 H* 5.2 H D Chloride 99 100 Carbon Dioxide 21.9 26.2 BUN 51 H 36 H Creatinine 8.8 H* 6.4 H* D Glucose 82 85 Calcium 8.1 L 8.3 Cardiac Enzymes 06/08/25 Range/Units 07:33 Troponin I 0.144 H* (0.0-0.045) ng/mL Liver Function 06/08/25 06/09/25 Range/Units 07:33 05:08 Total Bilirubin 1.4 H 1.3 H (0.3-1.2) mg/dL AST 44 H 66 H (0-34) U/L ALT 17 24 (10-49) U/L Alkaline Phosphatase 123 H 93 D (46-116) U/L Albumin 3.9 3.7 (3.5-5.0) gm/dL Urine 06/08/25 Range/Units 09:20 Urine Color Yellow (Lt Yel-Yel) Urine Clarity Clear (Clear/Hazy) Urine pH 6.5 (5.0-7.0) Ur Specific [place] 1.018 (1.001-1.035) Urine Protein 3+ A (Neg - Trace) Urine Glucose (UA) Negative (Negative) Assessment & Plan Additional Assessment & Plan Additional Plan: 55-year-old female with PMHx of HTN, IDDM type II, HFpEF EF 55% on 08/2024, ESRD on HD TTS, presenting with right heel pain. Patient has been consulted to nephrology for managment of ESRD on HD #ESRD on hemodialysis. #Anemia of Chronic Kidney disease # hyperkalemia-missed dialysis Plan: patient currently seen on dialysis. Tolerating dialysis without any problems. Hemodialysis for 3 hours, 2K, ultrafiltration 2-3 L, Epogen 6000, no heparin ordered. Plan of care discussed with the dialysis nurse. Please see dialysis flowsheet for further details. -Monitor renal function -Maintain fluid restriction, avoid nephrotoxic agents when possible, renally dose medications -Strict i and o Other medical problems # Sepsis secondary to right foot wound # Patient with PVD. s/p left BKA #IDDM #HFrEF EF 55% 08/2024 -Management per Primary Hospitalist team Thank you Jay for allowing me to participate in the care of Mr. Aguilar
--- NOTE | 2025-06-08 18:36 | XR_ITS ---
Examination: CT right lower extremity with intravenous contrast, 2-D sagittal reconstructions. 2-D coronal reconstructions. 3-D reconstructions. Date and time of exam: June 09, 2025, 1534 hours INDICATIONS: Right lower extremity redness swelling and pain this week CTDI: vol (mGy): 14.1 DLP: (mGycm): 910 Technique: Multiple 1.25 mm axial sections of the right lower extremity post 60 cc Isovue-370 intravenous have been obtained. 2-D sagittal and coronal reconstructions have been obtained. 3-D reconstructions have been obtained. Low dose protocols were performed. One or more of the following dose reduction techniques were used; automated exposure control, adjustment of the mA and/or KV according to patient size, use of iterative reconstruction technique. Findings: Ascites partly visualized Anasarca Atrophic calcified uterus Very heavy vascular calcification Diffuse edema in the subcutaneous fatty tissues surrounding the thigh and lower leg with skin thickening No soft tissue abscess Negative for cortical bone destruction IMPRESSION: Ascites Anasarca Diffuse cellulitis pattern Severe arteriovascular calcification, consider correlation with arterial Doppler sonography lower extremities
--- NOTE | 2025-06-08 18:44 | PD.RESPRO ---
Documentation for date of: 06/08/25 Subjective Subjective Interval history: VSS: BP 124/75, T103.2, RR 16, HR 80, O2 96% in RA. Labs showed WBC 15.6, Hgb 11.0, CMP consistent with ESRD, K+ 6.9, AG 17, BUN 51, CR 8.8, eGFR 5, T. bili 1.4, AST 44, troponin 0.144, BNP 2473, Pro-Antwan 3.41 In the ED, patient received ceftriaxone 1 g x 1, vancomycin 1 g, IVB NS 1 L, calcium gluconate 1 g, and Tylenol. #Altered mental status #Metabolic encephalopathy #Sepsis #Lactic Acidosis #Pulmonary congestion #Right pleural fluid #Pneumonia? #Cirrhosis #Hepatomegaly with irregular liver contour Exam Vital Signs Temp Pulse Resp BP Pulse Ox O2 Del Method O2 Flow Rate 98.7 F 75 18 115/54 L 96 Room Air 2 06/08/25 18:28 06/08/25 18:28 06/08/25 18:28 06/08/25 18:28 06/08/25 18:28 06/08/25 18:28 06/08/25 15:20 Objective Labs 06/08/25 07:33 06/08/25 07:33 Labs: Laboratory Results - last 24 hr 06/08/25 06/08/25 06/08/25 07:33 09:20 11:06 WBC 15.6 H RBC 3.74 L Hgb 11.0 L Hct 35.1 L MCV 94 MCH 29.4 MCHC 31.3 RDW Std Deviation 58.6 H Plt Count 137 L Neut % (Auto) 89 H Lymph % (Auto) 6 L [place] % (Auto) 4 Eos % (Auto) 0 Baso % (Auto) 0 Neut # (Auto) 13.9 H Lymph # (Auto) 1.0 [place] # (Auto) 0.6 Eos # (Auto) 0.1 Baso # (Auto) 0.1 Immature Gran # (Auto) 0.08 H Absolute Nucleated RBC 0.00 Immature Gran % 1 H Nucleated RBC % 0 PT 13.1 H INR 1.3 APTT 27.3 Sodium 138 Potassium 6.9 H* Chloride 99 Carbon Dioxide 21.9 Anion Gap 17 H BUN 51 H Creatinine 8.8 H* Estim Creat Clear Calc Not Performed. eGFR 5 L* BUN/Creatinine Ratio 6 L Glucose 82 Calculated Osmolality 288 Lactic Acid 3.0 H 2.6 H Calcium 8.1 L Corrected Calcium 8.2 L Magnesium 2.6 Total Bilirubin 1.4 H AST 44 H ALT 17 Alkaline Phosphatase 123 H Troponin I 0.144 H* B-Natriuretic Peptide 2473 H* Total Protein 7.1 Albumin 3.9 Globulin 3.2 Albumin/Globulin Ratio 1.2 Lipase 36 Procalcitonin 3.41 H Ur Collection Type Catheter Urine Color Yellow Urine Clarity Clear Urine pH 6.5 Ur Specific [place] 1.018 Urine Protein 3+ A Urine Glucose (UA) Negative Urine Ketones Negative Urine Blood 1+ A Urine Nitrite Negative Urine Bilirubin Negative Urine Urobilinogen (Auto) Negative Ur Leukocyte Esterase Negative Urine RBC 16 H Urine WBC 11 H Ur Squamous Epith Cells 0 Urine Bacteria None Urine HCG, Qual Negative Quality Measures Quality Measures sepsis Possible source: unknown Blood cultures ordered: completed in ED Assessment & Plan Assessment Current Active Medications: Generic Name Dose Route Start Last Admin Trade Name Freq PRN Reason Stop Dose Admin Acetaminophen 500 mg 06/08/25 18:16 Acetaminophen 500 Mg Tablet PO 07/08/25 18:15 Q6H PRN fever >100 or pain 1-3 Dextrose 25 ml 06/08/25 18:41 Dextrose 50%-Water Inj 50 Ml Syringe IV 07/08/25 18:40 Q15MIN PRN BG 50-70 responsive npo pt Dextrose 50 ml 06/08/25 18:41 Dextrose 50%-Water Inj 50 Ml Syringe IV 07/08/25 18:40 Q15MIN PRN BG <50 OR BG <70 & pt unresponsive Glucagon 1 mg 06/08/25 18:41 Glucagon Inj 1 Mg Vial IM Q15MIN PRN BG <70, and no IV access Albumin Human 25 gm in 100 mls @ 100 mls/hr 06/08/25 11:00 06/08/25 11:15 Albuminex 25% Ivpb IV 100 mls/hr Q30MIN PRN Administration DIALYSIS Insulin Human Lispro 0 unit 06/09/25 07:30 Insulin Lispro (Admelog) 1 Unit/0.01 Ml Unit SC 07/09/25 07:29 AC LIU Protocol Ondansetron HCl 4 mg 06/08/25 18:16 Ondansetron Inj 2 Mg/Ml Inj 2 Ml IVP 07/08/25 18:15 Q6H PRN NAUSEA OR VOMITING Protocol Pharmacy Consult 1 each 06/08/25 18:41 Pharmacy Renal Dose Adjustment 1 Ea XX 07/08/25 18:40 PRN PRN Consult
--- NOTE | 2025-06-08 18:54 | ESHP_ITS ---
<Statement entered by Rio Alvarado MD - 06/08/25 21:35> I saw and examined patient personally and supervised PGY 1 resident, Dr. Ritter with formulating a management plan. I agree with the documentation with the exceptions as listed below. 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 Davey presented to the ED on 06/08/2025 BIBA from [facility] for evaluation of altered mental status. Problem list: 1. Altered mental status secondary to acute metabolic encephalopathy 2. Sepsis secondary to right leg cellulitis 3. Hyperkalemia 4. Uremia 5. ESRD on HD 6. Fluid overload secondary to missed dialysis session 7. MASH with cirrhosis 8. Anion gap metabolic acidosis 9. Insulin-dependent diabetes mellitus type 2 Patient presented from [facility] for altered mental status after missing her dialysis session last week Saturday. CT brain was negative for any acute infarct, hemorrhage or midline shift. CT abdomen did show hepatomegaly and fatty infiltrates, gastritis. On exam DVT was elevated and patient's right lower extremity warm to touch, erythematous and had a 2 x 3 circumferential wound proximal to the medial malleolus packed with course and sustained green with pus. Also had a ulcer on the base of her great toe. Patient was started on Zosyn and IV for empiric coverage. Pending blood and urine cultures. Ordered CT right lower extremity with contrast to rule out abscess or osteomyelitis. Nephrology, Dr Yap consulted. Appreciate recommendations. Plan of care discussed with Attending Dr. Temi Alvarado MD PGY 2 Disclaimer: This note was dictated by speech recognition. Minor errors in antique furniture repairer may be present due to voice recognition software. 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 Davey presented to the ED on 06/08/2025 BIBA from [facility] for evaluation of altered mental status. Patient is very drowsy, and as reported by nursing at bedside, would only nod yes or no to questions asked from her before. She awakens to sternal rub, but very quickly falls back to sleep. Son, who is present at bedside, provided some of patient history. Son was notified of the acute mental status changes by SNF, apparently his mother was making a blank stare when nurses were calling her. Per medics, [place] staff reported the patient had skipped her dialysis Saturday due to feeling ill. Reportedly last night the nurse noticed patient to be shivering and given Tylenol for a subjective fever. State when the staff checked on her again this morning she was not acting appropriately, prompting calling 911. Per medics, on scene the patient noted to be warm to touch and shivering. ? In ED: Upon presentation, VSS: BP 124/75, T103.2, RR 16, HR 80, O2 96% in RA.? Labs showed WBC 15.6, Hgb 11.0, CMP consistent with ESRD, K+ 6.9, AG 17, BUN 51, CR 8.8, eGFR 5, T.?bili?1.4, AST 44, troponin 0.144, BNP 2473, Pro-Antwan 3.41. Imaging showed: ? CXR showed mild enlargement of cardiac contour, prominent vascular congestion with edema and/or pneumonia in the lung burch? ? CTAP revealed right pleural fluid, prominent vascular congestion, cirrhosis, atrophic kidneys, and atrophic uterus,?CT head negative for acute hemorrhage, mass effect, or midline shift? In the ED, patient received ceftriaxone 1 g x 1, vancomycin 1 g IV push, NS IV 1 L bolus, calcium gluconate 1 g x 1 and Tylenol Past Medical History: * As above. Past Surgical History: * Surgery for cataract and kidney stones. Left BKA on 03/25/[address] Davey. Medications: * Pending med rec. Allergies: * No known allergies. Family History: * Not relevant. Social History: * Denies alcohol, tobacco, or drug use. Patient admitted for management of acute mental status changes and urgent hemodialysis. Exam Vital Signs Temp Pulse Resp BP Pulse Ox O2 Del Method O2 Flow Rate 98.7 F 75 18 115/54 L 96 Room Air 2 06/08/25 18:28 06/08/25 18:28 06/08/25 18:28 06/08/25 18:28 06/08/25 18:28 06/08/25 18:28 06/08/25 15:20 Constitutional Comments: General: WD woman, somnolent and lethargic Skin: Intact, Warm, no rashes. HEENT: Normocephalic, Atraumatic. Normal neck range of motion, Supple. Trachea midline. Respiratory: Lungs are clear to auscultation. Breath sounds are equal bilaterally with good, symmetric chest expansion. Cardiovascular: RRR, normal S1, S2, No murmurs. Distal pulses 2+ Abdomen: Abdomen non-distended, without erythema, or lesions. Normotensive bowel sounds x4. Percussion tympanic. Palpation soft, nontender in all four quadrants. No organomagely. Absent rigidity, guarding, or rebound. Musculoskeletal/Extremities: Noted warmth, erythema, and swelling of the right lower extremity from mid thigh to the level of the ankle. Status post left BKA. Also noted open wound with drain placement on the anterior aspect of the right lower leonard. Left lowerm LE in wound vac. Neurologic: Patient lethargic and somnolent, awakens not to calls but to sternal rub and falls back to sleep immediately. Psych: Thoughts linear and responses appropriate. Results: Labs 06/08/25 07:33 06/08/25 07:33 Labs: Short CBC 06/08/25 Range/Units 07:33 WBC 15.6 H (3.6-11.0) Thou/mm3 Hgb 11.0 L (12.0-16.0) g/dL Hct 35.1 L (36.0-46.0) % Plt Count 137 L (140-440) Thou/mm3 BMP 06/08/25 07:33 Sodium 138 Potassium 6.9 H* Chloride 99 Carbon Dioxide 21.9 BUN 51 H Creatinine 8.8 H* Glucose 82 Calcium 8.1 L Cardiac Enzymes 06/08/25 Range/Units 07:33 Troponin I 0.144 H* (0.0-0.045) ng/mL Liver Function 06/08/25 Range/Units 07:33 Total Bilirubin 1.4 H (0.3-1.2) mg/dL AST 44 H (0-34) U/L ALT 17 (10-49) U/L Alkaline Phosphatase 123 H (46-116) U/L Albumin 3.9 (3.5-5.0) gm/dL Urine 06/08/25 Range/Units 09:20 Urine Color Yellow (Lt Yel-Yel) Urine Clarity Clear (Clear/Hazy) Urine pH 6.5 (5.0-7.0) Ur Specific Metter 1.018 (1.001-1.035) Urine Protein 3+ A (Neg - Trace) Urine Glucose (UA) Negative (Negative) Quality Measures Quality Measures sepsis Current suspected stage: sepsis Possible source: unknown Blood cultures ordered: completed in ED Antibiotic ordered: Yes Medications Home Medications and Allergies Allergies Allergy/AdvReac Type Severity Reaction Status Date / Time No Known Allergies Allergy Verified 03/16/25 00:43 Visit Medications Acetaminophen (Acetaminophen 500 Mg Tablet) 500 mg PO Q6H PRN PRN Reason: fever >100 or pain 1-3 Stop: 07/08/25 18:15 Dextrose (Dextrose 50%-Water Inj 50 Ml Syringe) 25 ml IV Q15MIN PRN PRN Reason: BG 50-70 responsive npo pt Stop: 07/08/25 18:40 Dextrose (Dextrose 50%-Water Inj 50 Ml Syringe) 50 ml IV Q15MIN PRN PRN Reason: BG <50 OR BG <70 & pt unresponsive Stop: 07/08/25 18:40 Glucagon (Glucagon Inj 1 Mg Vial) 1 mg IM Q15MIN PRN PRN Reason: BG <70, and no IV access Albumin Human (Albuminex 25% Ivpb) 25 gm in 100 mls @ 100 mls/hr IV Q30MIN PRN PRN Reason: DIALYSIS Last Admin: 06/08/25 11:15 Dose: 100 mls/hr Insulin Human Lispro (Insulin Lispro (Admelog) 1 Unit/0.01 Ml Unit) 0 unit SC AC [facility]; Protocol Stop: 07/09/25 07:29 Ondansetron HCl (Ondansetron Inj 2 Mg/Ml Inj 2 Ml) 4 mg IVP Q6H PRN; Protocol PRN Reason: NAUSEA OR VOMITING Stop: 07/08/25 18:15 Pharmacy Consult (Pharmacy Renal Dose Adjustment 1 Ea) 1 each XX PRN PRN PRN Reason: Consult Stop: 07/08/25 18:40 Discontinued Medications Acetaminophen (Acetaminophen Supp 650 Mg Supp) 650 mg MI X1 ONE Stop: 06/08/25 07:53 Last Admin: 06/08/25 08:00 Dose: 650 mg Calcium Gluconate (Calcium Gluconate 10% Inj 1 Gm/10 Ml Vial) 1 gm IV X1 ONE Stop: 06/08/25 09:40 Last Admin: 06/08/25 10:13 Dose: 1 gm Ceftriaxone Sodium/Dextrose (Rocephin/D5w 1gm Iv Premix) 1 gm in 50 mls @ 100 mls/hr IV X1 ONE Stop: 06/08/25 08:51 Last Infusion: 06/08/25 09:16 Dose: Infused Vancomycin/Sodium Chloride (Vancomycin/Ns 1 Gm Ivpb) 200 mls @ 120 mls/hr IV X1 ONE Stop: 06/08/25 10:04 Last Infusion: 06/08/25 15:36 Dose: Infused Sodium Chloride (Ns) 1,000 mls @ 999 mls/hr IV .Q1H1M ONE Stop: 06/08/25 09:25 Assessment & Plan Plan 55 year old female with history of HFpEF (EF 50-55% on 03/2025), hypertension, diabetes, ESRD on HD T/Th/Sat, 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 Davey presented to the ED on 06/08/2025 BIBA from SNF for evaluation of altered mental status. #Altered mental status #Metabolic encephalopathy Patient was brought in from SNF for AMS, making blank stares to calls of nursing staff at the facility. On assessment, patient is very drowsy, only awakens to sternal rub and falls back to sleep before answering any questions addressed to her.? ??CT head negative for acute hemorrhage, mass effect, or midline shift? Plan: -Neuro checks Q4h -follow up on B12, folate, TSH and ammonia level -Head of Bed 30 Degrees -Aspiration precautions -bedside swallow eval, NPO until then -Euglycemia and Avoid Hyperthermia (PRN Acetaminophen) -permissive htn #Sepsis #Cellulitis vs necrotizing fasciitis vs osteomyelitis #Open Wound Rt anterior lower LE and eligio-anal area #Leukocytosis Clinical picture meets 2/4 SIRS criteria: T 103.2 (>100.9 or <96.8F), RR 16 (>20/min), HR 80 (>90/min), WBC 15.6 (>12 or <4K or Bands >10%). Acute encephalopathy enumerated as endorgan damage. Cellulitis of the right lower extremity accounting for source of infection. Pro-Antwan 3.41. + On PE, patient has marked warmth, erythema, and swelling of the right lower extremity up to her thigh. + s/p IVB NS 1L, difficulty with further fluid repletion due to ESRD and volume overload status. + UA was negative Plan: - Zosyn 4.5g Q12h and vancomycin - ordered CT w con RLE - referral wound care - ordered U ctx #Hyperkalemia #Uremia #ESRD on HD (T//) #Atrophic kidneys CMP consistent with ESRD, K+ 6.9, AG 17, BUN 51, CR 8.8, eGFR 5, troponin 0.144, BNP 2473, Pt received calcium gluconate 1g in the ED ? CTAP revealed atrophic kidneys Patient s/p urgent hemodialysis session with removal of 1.5 L on 06/08 Plan: - Nephrology, Dr. Yap, consulted; appreciate recommendations - follow up on urine ctx - fluid restriction 1.5L #Acute Decompensated Heart Failure #Pulmonary congestion #Anasarca #Right pleural fluid #Pneumonia? ? CXR showed mild enlargement of cardiac contour, prominent vascular congestion with edema and/or pneumonia in the lung burch ? CTAP revealed right pleural fluid, prominent vascular congestion, ? patient's last echo was in March 2025, demonstrated normal LV size, hypokinetic anterior septal wall motion, grade 1 diastolic dysfunction without a EF of 50 to 55%. RVSP was 47. Plan: -Fluid restriction 1.5L, -Strict KIRILL -daily weights -Will order TTE and diurese as necessary for euvolemia -Zosyn 4.5g Q12h and vancomycin -pending sputum and blood ctx -continuous pulse ox -supplemental O2 to keep sat >92% #Cirrhosis #Hepatomegaly with irregular liver contour #Thrombocytopenia #Anemia, normocytic #Lactic Acidosis #AGMA ? CTAP revealed cirrhosis, hepatomegaly with irregular liver contour T.?bili?1.4, AST 44, LA 3.0 ->2.6 after 1L of IVB saline. ? PT 13.1 (H), INR 1.3, aPTT 27.3 Plt 137 and Hgb 11, likely anemia of chronic disease MELD-Na score 25: 15% mortality within 90 days -ordered ammonia level #T2DM, insulin dependent Hgb A1c 7.7 on 03/16/2025 -insulin sliding scale #HLD -pending med rec Health Maintenance: Disposition: telemetry Diet: NPO PPx DVT: Heparin SC 5000u bid PPx GI: Patient has prolonged QTc, cannot give protonix despite the fact that she is NPO Code Status: Routine This case was discussed with my attending physician, Dr. Membreno, and senior resident Dr Alvarado. Even though this this note was carefully revised there may still be minor errors in antique furniture repairer due to voice recognition software. Blayne Ritter DO PGY I Attending Provider Attestation/Addendum I or my resident physicians have discussed care with the ED physician and I have made the decision to admit. I have discussed and was present for the essential components of the history, physical examination, diagnosis, and treatment plan with the resident. I agree with the patient's care as documented by the resident and amended herein by me. Jay Membreno DO. Although this document has been carefully reviewed, there may still be some phonetic and other typographical errors. These errors are purely grammatical due to imperfections in the software program and should not be construed in any way to compromise the substance of the patient's medical care during this visit. Patient seen and evaluated in the ED. In short 55-year-old female with a significant past medical history of hypertension, diabetes, HFpEF with an EF of 55%, recent right lower extremity BKA in March 2025, and ESRD on hemodialysis, presented to the ED for acute encephalopathy. Apparently the patient had skipped her dialysis session on Saturday however did receive a session this morning. Subjective rigors and fever were endorsed. Patient was unable to provide any medical history at time of bedside visit however the patient's son was there and was able to fill in some. Patient is from SNF. In the ED, patient was normotensive, Tmax was 103.2 ?F, patient was on room air SpO2 96%. Significant labs included WBC of 15.6, hemoglobin 11, potassium 6.9, sodium 138, BUN 51 and creatinine 8.8. Anion gap was measured to be at 17. Lactic acid 3.0 but had downtrended to 2.6, troponin 0.144 however may be chronically elevated, urinalysis was dirty however unclear how much urine the patient actually makes, BNP 2773, procalcitonin elevated 3.41. CT abdomen and pelvis significant for multiple air distended small bowel loops in the lower abdomen possibly indicative of SBO, CT head was negative for any acute intracranial pathology to include stroke, EKG demonstrated sinus rhythm however QTc prolonged at 543, and repeat CT abdomen and pelvis demonstrated hepatomegaly, possible splenic lesion, moderate ascites, anasarca, thick gallbladder wall however in the setting of ascites, gastritis, atrophic kidneys, no bowel obstruction was seen. Of note, patient's last echo was in March 2025, demonstrated normal LV size, hypokinetic anterior septal wall motion, grade 1 diastolic dysfunction without a EF of 50 to 55%. RVSP was 47. In the ED, the patient was given ceftriaxone and vancomycin. Patient also started on albumin via nephrology who was consulted by the ED physician. Patient subsequently admitted to acute telemetry for the following significant problems: #Hyperkalemia #Anion gap metabolic acidosis, likely secondary to lactic acidosis #Acute decompensated heart failure exacerbation # Right lower extremity cellulitis # History of left lower extremity BKA with wound VAC in place #?UTI, urinalysis dirty however patient does not produce much urine, may be colonization, unclear if symptomatic #Uremia #Ascites #?Cholecystitis, per imaging thickened gallbladder wall however may be secondary to ascites #Gastritis #Prolonged QTc interval, 543 on initial EKG Plan: Patient admitted to telemetry, blood and urine cultures obtained in ED, patient started on vancomycin and Zosyn, renally dosed for cellulitis, possible UTI and less likely cholecystitis. Nephrology has been consulted for hemodialysis and electrolyte derangements. Patient started on albumin per their recommendations. We have also obtained a right lower extremity CT scan for possible osteomyelitis in setting of multiple skin lesions, the most concerning is 1 on the anterior leonard that is packed. Wound care is also been ordered. For the patient's heart failure, fluid restrict, strict I's and O's and daily weights has been ordered, we must be careful with fluids in the setting of heart failure with preserved ejection fraction in the setting of ESRD.
[2025-06-08 19:44] LABS: Ammonia 24 uMol/L (11-32)
[2025-06-08] MEDS: PIPER/TAZO INJ 4.5 GM in SODIUM CHLORIDE 0.9% (POP) 100 ML IV (19:55)
[2025-06-08] MEDS: HEPARIN SOD INJ 5000 UNIT/ML VIAL SC (20:47)
[2025-06-08 20:55] LABS: Influenza A Ag Negative; Influenza B Ag Negative
[2025-06-08 21:01] LABS: Folate > 24.00 ng/mL (>5.38); Vitamin B12 437 pg/mL (211-911)
[2025-06-08] MEDS: SODIUM CHLORIDE RT 10% 15 ML NEBU 5 ML INH (22:27)
--- NOTE | 2025-06-08 23:00 | PC.NURSE ---
WOUND VAC WAS BEEPING NO SEAL, I ATTEMPTED TO RESTART WITH NO LUCK. UNIT WAS TURNED OFF AND WOUND NURSE CONSULTED
[2025-06-09] VITALS (25 sets, daily range): BP systolic 88–116; BP diastolic 36–65; PULSE 68–79; RESP 14–21; TEMP 36.4–37.2; O2SAT 95–100; BMI 28.0; BMI 27.8
--- NOTE | 2025-06-09 04:17 | PC.NURSE ---
[employer] downtime occurred on <06/09/25> from <0200> to <0350>.
[2025-06-09 06:17] LABS: Basophils # (Auto) 0.1 Thou/mm3 (0.0-0.2); Basophils % (Auto) 0 % (0-2.5); Eosinophils # (Auto) 0.0 Thou/mm3 (0.0-0.5); Eosinophils % (Auto) 0 % (0-10); Hematocrit 30.7 % (36.0-46.0); Hemoglobin 9.7 g/dL (12.0-16.0); Immature Granulocytes Auto 0.05 Thou/mm3 (0.00-0.00); Lymphocytes # (Auto) 0.5 Thou/mm3 (1.0-4.8); Lymphocytes % (Auto) 4 % (10-50); Mean Corpuscular HGB Conc 31.6 g/dl (31.0-37.0); Mean Corpuscular Hemoglobin 29.9 pg (25.0-35.0); Mean Corpuscular Volume 95 fL (80-100); Monocytes # (Auto) 0.5 Thou/mm3 (0.0-0.8); Monocytes % (Auto) 4 % (0-12); Neutrophils # (Auto) 10.9 Thou/mm3 (1.8-7.7); Neutrophils % (Auto) 91 % (37-80); Nucleated Red Blood Cell # 0.00 Thou/mm3 (0.00-0.00); Nucleated Red Blood Cell % 0 /100 WBC (0); Platelet Count 134 Thou/mm3 (140-440); RDW Standard Deviation 60.2 fL (36.4-46.3); Red Blood Count 3.24 Miln/mm3 (4.00-5.20); White Blood Count 12.1 Thou/mm3 (3.6-11.0)
[2025-06-09 06:31] LABS: Alanine Aminotransferase 24 U/L (10-49); Albumin, Serum 3.7 gm/dL (3.5-5.0); Albumin/Globulin Ratio 1.4 (1.2-2.2); Alkaline Phosphatase 93 U/L (46-116); Anion Gap 15 (7-16); Aspartate Amino Transferase 66 U/L (0-34); BUN/Creatinine Ratio 6 Ratio (12-20); Bilirubin,Total 1.3 mg/dL (0.3-1.2); Blood Urea Nitrogen 36 mg/dL (9-23); Calcium 8.3 mg/dL (8.3-10.6); Calcium (Corrected) 8.5 mg/dL (8.5-10.1); Carbon Dioxide 26.2 mMol/L (20.0-31.0); Chloride 100 mMol/L (98-107); Creatinine (Component) 6.4 mg/dL (0.6-1.3); Estimated Creatinine Clearance 8.9 mL/min (>60); Globulin 2.7 gm/dL (2.3-3.5); Glucose 85 mg/dL (74-106); Magnesium 2.2 mg/dL (1.6-2.6); Osmolality,Calculated 288 (275-295); Phosphorous 7.3 mg/dL (2.4-5.1); Potassium 5.2 mMol/L (3.4-5.1); Sodium 141 mMol/L (136-145); Thyroid Stimulating Hormone 2.84 uIU/mL (0.55-4.78); Total Protein 6.4 gm/dL (5.7-8.2); eGFR 7 See Note
--- NOTE | 2025-06-09 08:46 | PC.SS ---
Follow up note: On IV antibiotic. Dialysis today.
--- NOTE | 2025-06-09 09:06 | PD.RESHP ---
Documentation for date of: 06/09/25 Exam Vital Signs Temp Pulse Resp BP Pulse Ox O2 Del Method O2 Flow Rate 97.6 F 74 20 99/44 L 96 Nasal Cannula 2 06/09/25 08:00 06/09/25 08:00 06/09/25 08:00 06/09/25 08:00 06/09/25 08:00 06/09/25 08:00 06/09/25 08:00 Results: Labs 06/09/25 05:08 06/09/25 05:08 Labs: Short CBC 06/09/25 Range/Units 05:08 WBC 12.1 H (3.6-11.0) Thou/mm3 Hgb 9.7 L (12.0-16.0) g/dL Hct 30.7 L (36.0-46.0) % Plt Count 134 L (140-440) Thou/mm3 BMP 06/08/25 06/09/25 07:33 05:08 Sodium 141 Potassium 6.9 H* 5.2 H D Chloride 100 Carbon Dioxide 26.2 BUN 36 H Creatinine 6.4 H* D Glucose 85 Calcium 8.3 Cardiac Enzymes 06/08/25 Range/Units 07:33 Troponin I 0.144 H* (0.0-0.045) ng/mL Liver Function 06/09/25 Range/Units 05:08 Total Bilirubin 1.3 H (0.3-1.2) mg/dL AST 66 H (0-34) U/L ALT 24 (10-49) U/L Alkaline Phosphatase 93 D (46-116) U/L Albumin 3.7 (3.5-5.0) gm/dL Urine 06/08/25 Range/Units 09:20 Urine Color Yellow (Lt Yel-Yel) Urine Clarity Clear (Clear/Hazy) Urine pH 6.5 (5.0-7.0) Ur Specific Hume 1.018 (1.001-1.035) Urine Protein 3+ A (Neg - Trace) Urine Glucose (UA) Negative (Negative) Quality Measures Quality Measures sepsis Possible source: unknown Blood cultures ordered: completed in ED Medications Home Medications and Allergies Home Medications ?Medication ?Instructions ?Recorded ?Confirmed ?Type acetaminophen 325 mg tablet (Pain 650 mg PO Q6H PRN pain 06/08/25 06/08/25 History Relief (acetaminophen)) amino acids-protein hydrolysate 15 1 ea PO DAILY 06/08/25 06/08/25 History gram-100 kcal/30 mL oral liquid (Pro-Stat Sugar Free) diphenhydramine HCl 25 mg capsule 25 mg PO Q6H PRN itching 06/08/25 06/08/25 History (Allergy Relief (diphenhydramine)) sevelamer carbonate 800 mg tablet 800 mg PO .with meals 06/08/25 06/08/25 History vitamin B complex-vitamin C-folic 1 tab PO QDAY 06/08/25 06/08/25 History acid 0.8 mg tablet (Michaelle-Dominick) Allergies Allergy/AdvReac Type Severity Reaction Status Date / Time No Known Allergies Allergy Verified 03/16/25 00:43 Visit Medications Acetaminophen (Acetaminophen 500 Mg Tablet) 500 mg PO Q6H PRN PRN Reason: fever >100 or pain 1-3 Stop: 07/08/25 18:15 Dextrose (Dextrose 50%-Water Inj 50 Ml Syringe) 25 ml IV Q15MIN PRN PRN Reason: BG 50-70 responsive npo pt Stop: 07/08/25 18:40 Dextrose (Dextrose 50%-Water Inj 50 Ml Syringe) 50 ml IV Q15MIN PRN PRN Reason: BG <50 OR BG <70 & pt unresponsive Stop: 07/08/25 18:40 Epoetin Darrell (Epoetin Darrell-Epbx Inj 10,000 Unit/Ml Vial (Non-Esrd)) 10,000 unit SC X1 ONE Stop: 06/09/25 13:01 Glucagon (Glucagon Inj 1 Mg Vial) 1 mg IM Q15MIN PRN PRN Reason: BG <70, and no IV access Heparin Sodium (Porcine) (Heparin Sod Inj 5000 Unit/Ml Vial) 5,000 unit SC Q12HR LIU Stop: 06/22/25 19:59 Last Admin: 06/08/25 20:47 Dose: 5,000 unit Albumin Human (Albuminex 25% Ivpb) 25 gm in 100 mls @ 100 mls/hr IV Q30MIN PRN PRN Reason: DIALYSIS Last Infusion: 06/08/25 19:14 Dose: Infused Piperacillin Sod/Tazobactam (Sod 4.5 gm/ Sodium Chloride) 100 mls @ 200 mls/hr IV Q12HR LIU; Protocol Stop: 06/15/25 19:34 Last Infusion: 06/08/25 20:41 Dose: Infused Insulin Human Lispro (Insulin Lispro (Admelog) 1 Unit/0.01 Ml Unit) 0 unit SC Q6HR LIU; Protocol Stop: 07/09/25 00:00 Last Admin: 06/09/25 05:12 Dose: Not Given Melatonin (Melatonin 3 Mg Tablet) 3 mg PO HS PRN PRN Reason: INSOMNIA Stop: 07/09/25 08:39 Ondansetron HCl (Ondansetron Inj 2 Mg/Ml Inj 2 Ml) 4 mg IVP Q6H PRN; Protocol PRN Reason: NAUSEA OR VOMITING Stop: 07/08/25 18:15 Pharmacy Consult (Pharmacy Renal Dose Adjustment 1 Ea) 1 each XX PRN PRN PRN Reason: Consult Stop: 07/08/25 18:40 Pharmacy Consult (Vancomycin Pharmacy To Dose 1 Each Each) 1 each IV QDAY PRN PRN Reason: COSULT Stop: 07/09/25 08:18 Sevelamer Carbonate (Sevelamer Carbonate 800 Mg Tablet) 800 mg PO TIDWMEAL [facility]; Protocol Stop: 07/09/25 08:44 Discontinued Medications Acetaminophen (Acetaminophen Supp 650 Mg Supp) 650 mg HI X1 ONE Stop: 06/08/25 07:53 Last Admin: 06/08/25 08:00 Dose: 650 mg Calcium Gluconate (Calcium Gluconate 10% Inj 1 Gm/10 Ml Vial) 1 gm IV X1 ONE Stop: 06/08/25 09:40 Last Admin: 06/08/25 10:13 Dose: 1 gm Ceftriaxone Sodium/Dextrose (Rocephin/D5w 1gm Iv Premix) 1 gm in 50 mls @ 100 mls/hr IV X1 ONE Stop: 06/08/25 08:51 Last Infusion: 06/08/25 09:16 Dose: Infused Vancomycin/Sodium Chloride (Vancomycin/Ns 1 Gm Ivpb) 200 mls @ 120 mls/hr IV X1 ONE Stop: 06/08/25 10:04 Last Infusion: 06/08/25 15:36 Dose: Infused Sodium Chloride (Ns) 1,000 mls @ 999 mls/hr IV .Q1H1M ONE Stop: 06/08/25 09:25 Insulin Human Lispro (Insulin Lispro (Admelog) 1 Unit/0.01 Ml Unit) 0 unit SC AC LIU; Protocol Stop: 07/09/25 07:29 Pantoprazole Sodium (Pantoprazole Inj 40 Mg Vial) 40 mg IVP QDAY [facility] Stop: 07/09/25 08:59 Pharmacy Consult (Vancomycin Pharmacy To Dose 1 Each Each) 1 each IV QDAY [facility] Stop: 07/09/25 08:59 Sodium Chloride (Sodium Chloride Rt 10% 15 Ml Nebu) 5 ml INH X1 ONE Stop: 06/08/25 20:29 Last Admin: 06/08/25 22:27 Dose: 5 ml
[2025-06-09 09:11] LABS: Vancomycin,Random 14.6 mcg/mL
[2025-06-09] MEDS: HEPARIN SOD INJ 5000 UNIT/ML VIAL SC ×2 (09:46→20:11)
[2025-06-09] MEDS: SEVELAMER CARBONATE 800 MG TABLET PO ×3 (09:47→18:14)
[2025-06-09] MEDS: PIPER/TAZO INJ 4.5 GM in SODIUM CHLORIDE 0.9% (POP) 100 ML IV (09:47)
--- NOTE | 2025-06-09 09:56 | PCS.ST ---
Swallow Evaluation completed. See report for details. No dysphagia. Regular diet consistencies are ok.
--- NOTE | 2025-06-09 10:36 | PD.RESCONSUL ---
HPI Data of Consult Requesting Physician: Hernandez Membreno DO Admitting Provider: Hernandez Membreno DO Attending Provider: Hernandez Membreno DO Primary Care Provider: Physician No Primary/Family Consult Narrative cc:: cc: Hernandez Membreno DO Exam Vital Signs Temp Pulse Resp BP Pulse Ox O2 Del Method O2 Flow Rate 97.6 F 74 20 99/44 L 96 Nasal Cannula 2 06/09/25 08:00 06/09/25 08:00 06/09/25 08:00 06/09/25 08:00 06/09/25 08:00 06/09/25 08:00 06/09/25 08:00 Results Labs 06/09/25 05:08 06/09/25 05:08 Labs: Short CBC 06/09/25 Range/Units 05:08 WBC 12.1 H (3.6-11.0) Thou/mm3 Hgb 9.7 L (12.0-16.0) g/dL Hct 30.7 L (36.0-46.0) % Plt Count 134 L (140-440) Thou/mm3 BMP 06/09/25 05:08 Sodium 141 Potassium 5.2 H D Chloride 100 Carbon Dioxide 26.2 BUN 36 H Creatinine 6.4 H* D Glucose 85 Calcium 8.3 Liver Function 06/09/25 Range/Units 05:08 Total Bilirubin 1.3 H (0.3-1.2) mg/dL AST 66 H (0-34) U/L ALT 24 (10-49) U/L Alkaline Phosphatase 93 D (46-116) U/L Albumin 3.7 (3.5-5.0) gm/dL Quality Measures Quality Measures sepsis Possible source: unknown Blood cultures ordered: completed in ED Medications Home Medications and Allergies Home Medications ?Medication ?Instructions ?Recorded ?Confirmed ?Type acetaminophen 325 mg tablet (Pain 650 mg PO Q6H PRN pain 06/08/25 06/08/25 History Relief (acetaminophen)) amino acids-protein hydrolysate 15 1 ea PO DAILY 06/08/25 06/08/25 History gram-100 kcal/30 mL oral liquid (Pro-Stat Sugar Free) diphenhydramine HCl 25 mg capsule 25 mg PO Q6H PRN itching 12/02/25 12/02/25 History (Allergy Relief (diphenhydramine)) sevelamer carbonate 800 mg tablet 800 mg PO .with meals 06/08/25 06/08/25 History vitamin B complex-vitamin C-folic 1 tab PO QDAY 06/08/25 06/08/25 History acid 0.8 mg tablet (Michaelle-Dominick) Allergies Allergy/AdvReac Type Severity Reaction Status Date / Time No Known Allergies Allergy Verified 03/16/25 00:43 Visit Medications Acetaminophen (Acetaminophen 500 Mg Tablet) 500 mg PO Q6H PRN PRN Reason: fever >100 or pain 1-3 Stop: 07/08/25 18:15 Dextrose (Dextrose 50%-Water Inj 50 Ml Syringe) 25 ml IV Q15MIN PRN PRN Reason: BG 50-70 responsive npo pt Stop: 07/08/25 18:40 Dextrose (Dextrose 50%-Water Inj 50 Ml Syringe) 50 ml IV Q15MIN PRN PRN Reason: BG <50 OR BG <70 & pt unresponsive Stop: 07/08/25 18:40 Epoetin Darrell (Epoetin Darrell-Epbx Inj 10,000 Unit/Ml Vial (Non-Esrd)) 10,000 unit SC X1 ONE Stop: 06/09/25 13:01 Glucagon (Glucagon Inj 1 Mg Vial) 1 mg IM Q15MIN PRN PRN Reason: BG <70, and no IV access Heparin Sodium (Porcine) (Heparin Sod Inj 5000 Unit/Ml Vial) 5,000 unit SC Q12HR [facility] Stop: 06/22/25 19:59 Last Admin: 06/09/25 09:46 Dose: 5,000 unit Albumin Human (Albuminex 25% Ivpb) 25 gm in 100 mls @ 100 mls/hr IV Q30MIN PRN PRN Reason: DIALYSIS Last Infusion: 06/08/25 19:14 Dose: Infused Piperacillin Sod/Tazobactam (Sod 4.5 gm/ Sodium Chloride) 100 mls @ 200 mls/hr IV Q12HR [facility]; Protocol Stop: 06/15/25 19:34 Last Admin: 06/09/25 09:47 Dose: 100 mls/hr Insulin Human Lispro (Insulin Lispro (Admelog) 1 Unit/0.01 Ml Unit) 0 unit SC Q6HR [facility]; Protocol Stop: 07/09/25 00:00 Last Admin: 06/09/25 05:12 Dose: Not Given Melatonin (Melatonin 3 Mg Tablet) 3 mg PO HS PRN PRN Reason: INSOMNIA Stop: 07/09/25 08:39 Ondansetron HCl (Ondansetron Inj 2 Mg/Ml Inj 2 Ml) 4 mg IVP Q6H PRN; Protocol PRN Reason: NAUSEA OR VOMITING Stop: 07/08/25 18:15 Pharmacy Consult (Pharmacy Renal Dose Adjustment 1 Ea) 1 each XX PRN PRN PRN Reason: Consult Stop: 07/08/25 18:40 Pharmacy Consult (Vancomycin Pharmacy To Dose 1 Each Each) 1 each IV QDAY PRN PRN Reason: COSULT Stop: 07/09/25 08:18 Sevelamer Carbonate (Sevelamer Carbonate 800 Mg Tablet) 800 mg PO [facility]; Protocol Stop: 07/09/25 08:44 Last Admin: 06/09/25 09:47 Dose: 800 mg Discontinued Medications Acetaminophen (Acetaminophen Supp 650 Mg Supp) 650 mg MD X1 ONE Stop: 06/08/25 07:53 Last Admin: 06/08/25 08:00 Dose: 650 mg Calcium Gluconate (Calcium Gluconate 10% Inj 1 Gm/10 Ml Vial) 1 gm IV X1 ONE Stop: 06/08/25 09:40 Last Admin: 06/08/25 10:13 Dose: 1 gm Ceftriaxone Sodium/Dextrose (Rocephin/D5w 1gm Iv Premix) 1 gm in 50 mls @ 100 mls/hr IV X1 ONE Stop: 06/08/25 08:51 Last Infusion: 06/08/25 09:16 Dose: Infused Vancomycin/Sodium Chloride (Vancomycin/Ns 1 Gm Ivpb) 200 mls @ 120 mls/hr IV X1 ONE Stop: 06/08/25 10:04 Last Infusion: 06/08/25 15:36 Dose: Infused Sodium Chloride (Ns) 1,000 mls @ 999 mls/hr IV .Q1H1M ONE Stop: 06/08/25 09:25 Insulin Human Lispro (Insulin Lispro (Admelog) 1 Unit/0.01 Ml Unit) 0 unit SC [facility]; Protocol Stop: 07/09/25 07:29 Pantoprazole Sodium (Pantoprazole Inj 40 Mg Vial) 40 mg IVP QDAY [facility] Stop: 07/09/25 08:59 Pharmacy Consult (Vancomycin Pharmacy To Dose 1 Each Each) 1 each IV QDAY [facility] Stop: 07/09/25 08:59 Sodium Chloride (Sodium Chloride Rt 10% 15 Ml Nebu) 5 ml INH X1 ONE Stop: 06/08/25 20:29 Last Admin: 06/08/25 22:27 Dose: 5 ml
--- NOTE | 2025-06-09 10:36 | PD.RESPRO ---
Documentation for date of: 06/09/25 Subjective Subjective Interval history: Reason for consult: ESRD, need for dialysis History of present illness: Ms. Aguilar is a 54-year-old lady with extensive past medical history of uncontrolled hypertension and diabetes for many years ended up on dialysis 2 years ago under my care and has been coming to dialysis treatments on TTS (noncompliant with treatments due to loose stools) was admitted to the emergency department brought by paramedics with altered mental status and noted to have possible sepsis from the right leg wound. Patient was admitted a couple of months ago and had a left BKA for gangrene. She missed her dialysis session on Saturday. In ED white count 15.6, hemoglobin 11, platelets 137 sodium 138, potassium 6.9, bicarbonate 21.9, BUN 51, creatinine 8.8, blood sugar 82, calcium 8.2, total bilirubin 1.4, AST 44, ALT 17, alk phos 123, BNP 2473, albumin 3.9, Pro-Antwan 3.41, urinalysis shows a WBC 11. Abdominal pelvic CT showed liver cirrhosis with moderate ascites and anasarca. Head CT was negative. Patient will be admitted for sepsis secondary to RLE cellulitis//diabetic wounds. Nephrology consulted for emergency dialysis dialysis. Patient currently seen on dialysis. 06/09/25: Patient seen and assessed at bedside. No complaints. Answering questions appropriately, back at mental baseline. AOx2. Per patient, she is on HD MWF schedule, last session was Saturday. WBC improving. Potassium 5.2 (from 6.9). BUN 36 (from 51), Cr 6.4 (from 8.8), GFR 7 (from 5), phos 7.3. S/p HD -1L yesterday, plan for another session today. Strict INOs. Started on cefepime and vancomycin renally dosed. Exam Vital Signs Temp Pulse Resp BP Pulse Ox O2 Del Method O2 Flow Rate 97.6 F 74 20 99/44 L 96 Nasal Cannula 2 06/09/25 08:00 06/09/25 08:00 06/09/25 08:00 06/09/25 08:00 06/09/25 08:00 06/09/25 08:00 06/09/25 08:00 Narrative Exam Physical Exam General: Awake and in no acute distress. Conversational and non-toxic appearing. HEENT: Normocephalic, atraumatic, mucous membranes dry. Heart: Regular rate and rhythm, normal S1 and S2, no murmurs appreciated. Lungs: Mildly decreased breath sounds in right lower lung, otherwise clear in all other lobes. Abdomen: Soft, nondistended, nontender, positive bowel sounds. No guarding or rebound tenderness. Neurologic: Alert and oriented x3, no gross neurological deficit, and patient able to move all extremities. Extremities: No edema. Dry wrinkled skin on right lower extremity. Left BKA nontender on palpation, wound vac in place. New open wound at right lower leg. Skin: No rash or ecchymoses. Objective Labs 06/10/25 04:30 06/10/25 04:30 Labs: Laboratory Results - last 24 hr 06/08/25 06/08/25 06/08/25 07:33 09:20 11:06 WBC RBC Hgb Hct MCV MCH MCHC RDW Std Deviation Plt Count Neut % (Auto) Lymph % (Auto) [place] % (Auto) Eos % (Auto) Baso % (Auto) Neut # (Auto) Lymph # (Auto) [place] # (Auto) Eos # (Auto) Baso # (Auto) Immature Gran # (Auto) Absolute Nucleated RBC Immature Gran % Nucleated RBC % Sodium Potassium Chloride Carbon Dioxide Anion Gap BUN Creatinine Estim Creat Clear Calc eGFR BUN/Creatinine Ratio Glucose Calculated Osmolality Lactic Acid 2.6 H Calcium Corrected Calcium Phosphorus Magnesium Total Bilirubin AST ALT Alkaline Phosphatase Ammonia Total Protein 7.1 Albumin Globulin 3.2 Albumin/Globulin Ratio 1.2 Vitamin B12 Folate TSH Urine HCG, Qual Negative Random Vancomycin Influenza A (Rapid) Influenza B (Rapid) 06/08/25 06/08/25 06/09/25 19:06 20:11 05:08 WBC 12.1 H RBC 3.24 L Hgb 9.7 L Hct 30.7 L MCV 95 MCH 29.9 MCHC 31.6 RDW Std Deviation 60.2 H Plt Count 134 L Neut % (Auto) 91 H Lymph % (Auto) 4 L [place] % (Auto) 4 Eos % (Auto) 0 Baso % (Auto) 0 Neut # (Auto) 10.9 H Lymph # (Auto) 0.5 L [place] # (Auto) 0.5 Eos # (Auto) 0.0 Baso # (Auto) 0.1 Immature Gran # (Auto) 0.05 H Absolute Nucleated RBC 0.00 Immature Gran % 0 Nucleated RBC % 0 Sodium 141 Potassium 5.2 H D Chloride 100 Carbon Dioxide 26.2 Anion Gap 15 BUN 36 H Creatinine 6.4 H* D Estim Creat Clear Calc 8.9 L eGFR 7 L* BUN/Creatinine Ratio 6 L Glucose 85 Calculated Osmolality 288 Lactic Acid Calcium 8.3 Corrected Calcium 8.5 Phosphorus 7.3 H Magnesium 2.2 Total Bilirubin 1.3 H AST 66 H ALT 24 Alkaline Phosphatase 93 D Ammonia 24 Total Protein 6.4 Albumin 3.7 Globulin 2.7 Albumin/Globulin Ratio 1.4 Vitamin B12 437 Folate > 24.00 TSH 2.84 Urine HCG, Qual Random Vancomycin 14.6 Influenza A (Rapid) Negative Influenza B (Rapid) Negative Quality Measures Quality Measures sepsis Current suspected stage: sepsis Possible source: unknown Blood cultures ordered: completed in ED Antibiotic ordered: Yes Assessment & Plan Assessment Current Active Medications: Generic Name Dose Route Start Last Admin Trade Name Freq PRN Reason Stop Dose Admin Acetaminophen 500 mg 06/08/25 18:16 Acetaminophen 500 Mg Tablet PO 07/08/25 18:15 Q6H PRN fever >100 or pain 1-3 Dextrose 25 ml 06/08/25 18:41 Dextrose 50%-Water Inj 50 Ml Syringe IV 07/08/25 18:40 Q15MIN PRN BG 50-70 responsive npo pt Dextrose 50 ml 06/08/25 18:41 Dextrose 50%-Water Inj 50 Ml Syringe IV 07/08/25 18:40 Q15MIN PRN BG <50 OR BG <70 & pt unresponsive Epoetin Darrell 10,000 unit 06/09/25 13:00 Epoetin Darrell-Epbx Inj 10,000 Unit/Ml Vial (Non-Esrd) SC 06/09/25 13:01 X1 ONE Glucagon 1 mg 06/08/25 18:41 Glucagon Inj 1 Mg Vial IM Q15MIN PRN BG <70, and no IV access Heparin Sodium (Porcine) 5,000 unit 06/08/25 20:00 06/09/25 09:46 Heparin Sod Inj 5000 Unit/Ml Vial SC 06/22/25 19:59 5,000 unit Q12HR [facility] Administration Albumin Human 25 gm in 100 mls @ 100 mls/hr 06/08/25 11:00 06/08/25 19:14 Albuminex 25% Ivpb IV Infused Q30MIN PRN Infusion DIALYSIS Piperacillin Sod/Tazobactam 100 mls @ 200 mls/hr 06/08/25 19:35 06/09/25 09:47 Sod 4.5 gm/ Sodium Chloride IV 06/15/25 19:34 100 mls/hr Q12HR [facility] Administration Protocol Insulin Human Lispro 0 unit 06/09/25 00:00 06/09/25 05:12 Insulin Lispro (Admelog) 1 Unit/0.01 Ml Unit SC 07/09/25 00:00 Not Given Q6HR [facility] Protocol Melatonin 3 mg 06/09/25 08:40 Melatonin 3 Mg Tablet PO 07/09/25 08:39 HS PRN INSOMNIA Ondansetron HCl 4 mg 06/08/25 18:16 Ondansetron Inj 2 Mg/Ml Inj 2 Ml IVP 07/08/25 18:15 Q6H PRN NAUSEA OR VOMITING Protocol Pharmacy Consult 1 each 06/08/25 18:41 Pharmacy Renal Dose Adjustment 1 Ea XX 07/08/25 18:40 PRN PRN Consult Pharmacy Consult 1 each 06/09/25 08:19 Vancomycin Pharmacy To Dose 1 Each Each IV 07/09/25 08:18 QDAY PRN COSULT Sevelamer Carbonate 800 mg 06/09/25 08:45 06/09/25 09:47 Sevelamer Carbonate 800 Mg Tablet PO 07/09/25 08:44 800 mg TIDWMEAL [facility] Administration Protocol Plan Patient is a 55-year-old female with PMHx of HTN, IDDM type II, HFpEF EF 55% on 08/2024, ESRD on HD TTS, presenting with right heel pain. Patient has been consulted to nephrology for managment of ESRD on HD #ESRD on hemodialysis MWF #Anemia of Chronic Kidney disease #Hyperkalemia-missed dialysis (improving) - On HD MWF per patient, last session Saturday. Denies missing session however has history of noncompliance - Potassium 6.9 on admission, improved to 5.2 - S/p urgent hemodialysis for 3 hours, 2K, ultrafiltration 2-3 L, Epogen 6000, no heparin. Removed 1L. Plan: - Scheduled for HD today. Plan to resume patient back on MWF schedule. - Monitor renal function - Maintain fluid restriction 1500 mL - Avoid nephrotoxic agents - Renally dose medications - Strict INOs # Sepsis secondary to right foot wound # Patient with PVD. s/p left BKA #IDDM #HFrEF EF 55% 08/2024 -Management per Primary Hospitalist team Thank you Jay for allowing me to participate in the care of Mr. Aguilar Patient plan of care was discussed with the attending physician, Dr. Yap. Delmis Lazcano DO, PGY- Attending Provider Attestation/Addendum Patient currently seen and examined with resident physician Dr. Lazcano. Note reviewed, agree with findings and recommendations. Patient currently seen on dialysis. Tolerating dialysis without any problems. Hemodialysis for 3 hours, 2K, ultrafiltration 2-3 L, Epogen 6000, no heparin ordered. Plan of care discussed with the dialysis nurse. Please see dialysis flowsheet for further details. Patient with a rt leg infection. left BKA.
[2025-06-09] MEDS: CEFEPIME INJ 1 GM in SODIUM CHLORIDE 0.9% (Popper) 50 ML IV (12:09)
--- NOTE | 2025-06-09 13:32 | ESPR_ITS ---
<Statement entered by Rio Alvarado MD - 06/09/25 15:02> I saw and examined patient personally and supervised PGY 1 resident, Dr. Ritter with formulating a management plan. I agree with the documentation with the exceptions as listed below. 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 Davey presented to the ED on 06/08/2025 BIBA from SNF for evaluation of altered mental status. Problem list: 1. Altered mental status secondary to acute metabolic encephalopathy 2. Sepsis secondary to right leg cellulitis 3. Hyperkalemia 4. Uremia 5. ESRD on HD 6. Fluid overload secondary to missed dialysis session 7. MASH with cirrhosis 8. Anion gap metabolic acidosis 9. Insulin-dependent diabetes mellitus type 2 Patient's mentation markedly improved today after dialysis. Currently alert and oriented x 3. Blood culture showed no bacterial growth x 24 hours, urine culture and MRSA swab pending. Of note patient did have a wound swab outpatient on 05/27 which grew Pseudomonas pansensitive to tested antibiotics. Currently on Zosyn and vancomycin IV for cellulitis. Discontinued Zosyn and switch to cefepime to narrow coverage while still ensuring pseudomonal coverage. CT right lower extremity was negative for abscess or osteomyelitis and only showed cellulitis. Patient underwent another dialysis session today to clear the contrast. General surgery, Dr. Davey was curb sided regarding her osteomyelitis and left BKA nonhealing wound. He recommended wound VAC and no need for surgical consultation at this time. Plan of care discussed with Attending Dr. Temi Alvarado MD PGY 2 Disclaimer: This note was dictated by speech recognition. Minor errors in slab inspector may be present due to voice recognition software. Documentation for date of: 06/09/25 Subjective Subjective Interval history: No acute night events. Patient seen examined at bedside. Patient's mentation is much improved today and is conversational and alert. Endorses much improved shortness of breath. Denies any lower extremity pain. Does endorse itchiness of outer arms and on face states she feels like she is being bit and noticed bugs a while ago, unclear timeline. Endorses appearance of hyperpigmented spots on bilateral outer arms and on face 6 months ago which she attributed to insect bites. Started calamine lotion. Social work will investigate possible insects at SNF although patient did report presence of hyperpigmented spots prior to SNF admission. Vital signs stable, saturating 100% on 2 L. WBC downtrending, hemoglobin down trending, potassium 5.2, BUN and creatinine downtrending 2/2 HD. Antibiotics switched from Zosyn to cefepime due to Pseudomonas wound culture on 05/21. Continue vancomycin. HD today again. Exam Vital Signs Temp Pulse Resp BP Pulse Ox O2 Del Method O2 Flow Rate 98.0 F 76 15 112/59 L 95 Room Air 2 06/09/25 12:00 06/09/25 12:00 06/09/25 12:00 06/09/25 12:00 06/09/25 12:00 06/09/25 12:00 06/09/25 08:00 Narrative Exam GENERAL: AOx3, no acute distress HEENT: mucous membranes moist, bilateral sclera anicteric CARDIOVASCULAR: regular rate and rhythm, S1/S2 present, 2/6 systolic murmur best heard at 2nd L intercostal, L AVF patent with palpable thrill PULMONARY: clear to auscultation bilaterally, no rales/rhonchi/wheezes ABDOMINAL: soft, non-tender, non-distended, no rebound/guarding, bowel sounds present, tympanic EXTREMITIES: no peripheral edema, multiple hyperpigmented skin papules across bilateral outer upper arms and on face SKIN: warm and dry, findings as above NEURO: CN II-XII grossly intact, no focal deficits, alert, following commands Objective Labs 06/09/25 05:08 06/09/25 05:08 Labs: Laboratory Results - last 24 hr 06/08/25 06/08/25 06/09/25 19:06 20:11 05:08 WBC 12.1 H RBC 3.24 L Hgb 9.7 L Hct 30.7 L MCV 95 MCH 29.9 MCHC 31.6 RDW Std Deviation 60.2 H Plt Count 134 L Neut % (Auto) 91 H Lymph % (Auto) 4 L [place] % (Auto) 4 Eos % (Auto) 0 Baso % (Auto) 0 Neut # (Auto) 10.9 H Lymph # (Auto) 0.5 L [place] # (Auto) 0.5 Eos # (Auto) 0.0 Baso # (Auto) 0.1 Immature Gran # (Auto) 0.05 H Absolute Nucleated RBC 0.00 Immature Gran % 0 Nucleated RBC % 0 Sodium 141 Potassium 5.2 H D Chloride 100 Carbon Dioxide 26.2 Anion Gap 15 BUN 36 H Creatinine 6.4 H* D Estim Creat Clear Calc 8.9 L eGFR 7 L* BUN/Creatinine Ratio 6 L Glucose 85 Calculated Osmolality 288 Calcium 8.3 Corrected Calcium 8.5 Phosphorus 7.3 H Magnesium 2.2 Total Bilirubin 1.3 H AST 66 H ALT 24 Alkaline Phosphatase 93 D Ammonia 24 Total Protein 6.4 Albumin 3.7 Globulin 2.7 Albumin/Globulin Ratio 1.4 Vitamin B12 437 Folate > 24.00 TSH 2.84 Random Vancomycin 14.6 Influenza A (Rapid) Negative Influenza B (Rapid) Negative Quality Measures Quality Measures sepsis Current suspected stage: sepsis Possible source: unknown Blood cultures ordered: completed in ED Antibiotic ordered: Yes Assessment & Plan Assessment Current Active Medications: Generic Name Dose Route Start Last Admin Trade Name Freq PRN Reason Stop Dose Admin Acetaminophen 500 mg 06/08/25 18:16 Acetaminophen 500 Mg Tablet PO 07/08/25 18:15 Q6H PRN fever >100 or pain 1-3 Calamine 0 ml 06/09/25 11:15 Calamine Lotion 120 Ml Btl TOP 07/09/25 11:14 UD LIU Dextrose 25 ml 06/08/25 18:41 Dextrose 50%-Water Inj 50 Ml Syringe IV 07/08/25 18:40 Q15MIN PRN BG 50-70 responsive npo pt Dextrose 50 ml 06/08/25 18:41 Dextrose 50%-Water Inj 50 Ml Syringe IV 07/08/25 18:40 Q15MIN PRN BG <50 OR BG <70 & pt unresponsive Glucagon 1 mg 06/08/25 18:41 Glucagon Inj 1 Mg Vial IM Q15MIN PRN BG <70, and no IV access Heparin Sodium (Porcine) 5,000 unit 06/08/25 20:00 06/09/25 09:46 Heparin Sod Inj 5000 Unit/Ml Vial SC 06/22/25 19:59 5,000 unit Q12HR LIU Administration Albumin Human 25 gm in 100 mls @ 100 mls/hr 06/08/25 11:00 06/08/25 19:14 Albuminex 25% Ivpb IV Infused Q30MIN PRN Infusion DIALYSIS Cefepime HCl 1 gm/ Sodium 50 mls @ 100 mls/hr 06/09/25 11:15 06/09/25 12:09 Chloride IV 06/16/25 11:14 100 mls/hr DAILY LIU Administration Insulin Human Lispro 0 unit 06/09/25 00:00 06/09/25 12:14 Insulin Lispro (Admelog) 1 Unit/0.01 Ml Unit SC 07/09/25 00:00 Not Given Q6HR LIU Protocol Melatonin 3 mg 06/09/25 08:40 Melatonin 3 Mg Tablet PO 07/09/25 08:39 HS PRN INSOMNIA Ondansetron HCl 4 mg 06/08/25 18:16 Ondansetron Inj 2 Mg/Ml Inj 2 Ml IVP 07/08/25 18:15 Q6H PRN NAUSEA OR VOMITING Protocol Pharmacy Consult 1 each 06/08/25 18:41 Pharmacy Renal Dose Adjustment 1 Ea XX 07/08/25 18:40 PRN PRN Consult Pharmacy Consult 1 each 06/09/25 08:19 Vancomycin Pharmacy To Dose 1 Each Each IV 07/09/25 08:18 QDAY PRN COSULT Sevelamer Carbonate 800 mg 06/09/25 08:45 06/09/25 12:10 Sevelamer Carbonate 800 Mg Tablet PO 07/09/25 08:44 800 mg TIDWMEAL LIU Administration Protocol Plan 55 year old female with history of HFpEF (EF 50-55% on 03/2025), hypertension, diabetes, ESRD on HD MWF, 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 Davey presented to the ED on 06/08/[address] [facility] for evaluation of altered mental status. #Sepsis 2/2 #Cellulitis of LLE and RUE #LUE wound s/p L BKA 04/01/2025 #Open Wound Rt anterior lower LE and eligio-anal area #Leukocytosis Clinical picture meets 2/4 SIRS criteria: T 103.2 (>100.9 or <96.8F), RR 16 (>20/min), HR 80 (>90/min), WBC 15.6 (>12 or <4K or Bands >10%). Acute encephalopathy enumerated as endorgan damage. Cellulitis of the right lower extremity accounting for source of infection. Pro-Antwan 3.41. + On PE, patient has marked warmth, erythema, and swelling of the right lower extremity up to her thigh. + s/p IVB NS 1L, difficulty with further fluid repletion due to ESRD and volume overload status. + UA was negative RLE CT: diffuse cellulitis. Zosyn (06/08-06/09). Wound culture on 05/21 grew Pseudamonas Plan: - Cefepime (06/09- and vancomycin (06/08- - referral wound care and continue wound vac - ordered U ctx #Anasarca 08/09 #ESRD on HD (MWF) #Hyperkalemia #Atrophic kidneys CMP consistent with ESRD, K+ 6.9, AG 17, BUN 51, CR 8.8, eGFR 5, troponin 0.144, BNP 2473. Missed HD on Saturday prior to admission. Pt received calcium gluconate 1g in the ED ? CXR showed mild enlargement of cardiac contour, prominent vascular congestion with edema and/or pneumonia in the lung burch ? CTAP revealed right pleural fluid, prominent vascular congestion, ? patient's last echo was in March 2025, demonstrated normal LV size, hypokinetic anterior septal wall motion, grade 1 diastolic dysfunction without a EF of 50 to 55%. RVSP was 47. Patient s/p urgent hemodialysis session with removal of 1.5 L on 06/08 Plan: - Nephrology, Dr. Yap, consulted: HD today - fluid restriction 1.5L, strict KIRILL, daily weights -pending sputum and blood ctx - VICE CHAIR and supplemental O2 to keep sat >92% #Altered mental status #Metabolic vs infectious encephalopathy Patient was brought in from SNF for AMS, making blank stares to calls of nursing staff at the facility. On assessment, patient is very drowsy, only awakens to sternal rub and falls back to sleep before answering any questions addressed to her.? ??CT head negative for acute hemorrhage, mass effect, or midline shift? B12, folate, ammonia, TSH wnl Plan: - Treat underlying infection and continue HD sessions - Head of Bed 30 Degrees, aspiration precautions - Passed swallow eval, renal diet started #Hyperpigmented skin lesions #Pruritus Patient reports pruritus for the past 6 months. Did come from SNF however patient reports she felt as if bugs were biting her before she arrived to SNF and since then she has been itchy. No active bites however patient noted to have hyperpigmented papules on bilateral arms, upper back and on face that started 6 months ago. Eosinophils wnl. Ddx: prurigo nodularis, insect bites, post inflammatory hyperpigmentation, sebhorreic keratosis, Leser-Tr?lat sign Plan: - Calamine lotion - Low threshold for steroids as low suspicion of insect bites - visitor services information assistant to call SNF to investigate possible insects #Acute hypoxic respiratory failure, improving 2/2 #Anasarca Presented with SOB and CXR shows vascular congestion with edema. Likely 2/2 missed HD session. Plan: - Continue supplemental O2 as needed and downtitrate #MASH with cirrhosis #Hepatomegaly with irregular liver contour #Thrombocytopenia #Anemia, normocytic #Lactic Acidosis, resolved #AGMA, resolved ? CTAP revealed cirrhosis, hepatomegaly with irregular liver contour T.?bili?1.4, AST 44, LA 3.0 ->2.6 after 1L of IVB saline. ? PT 13.1 (H), INR 1.3, aPTT 27.3 Plt 137 and Hgb 11, likely anemia of chronic disease MELD-Na score 25: 15% mortality within 90 days. Ammonia wnl. Plan: - CTM LFTs #HFpEF (EF 50-55% on 03/2025) Stable. Plan: - CTM fluid status and caution with fluids #T2DM, insulin dependent Hgb A1c 7.7 on 03/16/2025 -insulin sliding scale #HLD - Atorvastatin 40 mg qhs Health Maintenance: Disposition: telemetry Diet: Renal PPx DVT: Heparin SC 5000u bid PPx GI: not indicated Code Status: Routine This case was discussed with my attending physician, Dr. Membreno, and senior resident Dr Alvarado. Even though this this note was carefully revised there may still be minor errors in slab inspector due to voice recognition software. Dotty Lazcano DO Internal Medicine PGY-1 Attending Provider Attestation/Addendum I have discussed and was present for the essential components of the history, physical examination, diagnosis, and treatment plan with the resident. I agree with the patient's care as documented by the resident and amended herein by me. Jay Membreno DO. Although this document has been carefully reviewed, there may still be some phonetic and other typographical errors. These errors are purely grammatical due to imperfections in the software program and should not be construed in any way to compromise the substance of the patient's medical care during this visit.
[2025-06-09] MEDS: ALBUMIN HUMAN-KJDA 25% IVPB 25 GM/100 ML BTL IV (14:54)
[2025-06-09] MEDS: EPOETIN ALFA-EPBX INJ 10,000 UNIT/ML VIAL (NON-ESRD) 10000 UNIT SC (15:20)
[2025-06-09] MEDS: ACETAMINOPHEN 500 MG TABLET PO (16:59)
[2025-06-09] MEDS: Acetic Acid Irrig 0.25% 500 ML BTL 250 ML IRRIG ×2 (18:14→20:50)
[2025-06-09] MEDS: Silvasorb Gel 45 ML TUBE TOP (18:15)
[2025-06-09] MEDS: ATORVASTATIN CALCIUM 20 MG TABLET 40 MG PO (20:11)
[2025-06-09] MEDS: ASCORBIC ACID 250 MG TABLET PO (20:11)
[2025-06-09] MEDS: MELATONIN 3 MG TABLET PO (21:20)
[2025-06-10] VITALS (9 sets, daily range): BP systolic 92–120; BP diastolic 52–67; PULSE 63–74; RESP 16–21; TEMP 36.1–36.4; O2SAT 95–99
[2025-06-10 05:50] LABS: Basophils # (Auto) 0.0 Thou/mm3 (0.0-0.2); Basophils % (Auto) 0 % (0-2.5); Eosinophils # (Auto) 0.6 Thou/mm3 (0.0-0.5); Eosinophils % (Auto) 8 % (0-10); Hematocrit 31.3 % (36.0-46.0); Hemoglobin 9.4 g/dL (12.0-16.0); Immature Granulocytes Auto 0.02 Thou/mm3 (0.00-0.00); Lymphocytes # (Auto) 0.6 Thou/mm3 (1.0-4.8); Lymphocytes % (Auto) 8 % (10-50); Mean Corpuscular HGB Conc 30.0 g/dl (31.0-37.0); Mean Corpuscular Hemoglobin 29.0 pg (25.0-35.0); Mean Corpuscular Volume 97 fL (80-100); Monocytes # (Auto) 0.5 Thou/mm3 (0.0-0.8); Monocytes % (Auto) 7 % (0-12); Neutrophils # (Auto) 5.8 Thou/mm3 (1.8-7.7); Neutrophils % (Auto) 77 % (37-80); Nucleated Red Blood Cell # 0.00 Thou/mm3 (0.00-0.00); Nucleated Red Blood Cell % 0 /100 WBC (0); Platelet Count 128 Thou/mm3 (140-440); RDW Standard Deviation 61.1 fL (36.4-46.3); Red Blood Count 3.24 Miln/mm3 (4.00-5.20); White Blood Count 7.6 Thou/mm3 (3.6-11.0)
[2025-06-10 06:29] LABS: Alanine Aminotransferase 35 U/L (10-49); Albumin, Serum 4.1 gm/dL (3.5-5.0); Albumin/Globulin Ratio 1.4 (1.2-2.2); Alkaline Phosphatase 88 U/L (46-116); Anion Gap 12 (7-16); Aspartate Amino Transferase 89 U/L (0-34); BUN/Creatinine Ratio 5 Ratio (12-20); Bilirubin,Total 1.1 mg/dL (0.3-1.2); Blood Urea Nitrogen 22 mg/dL (9-23); Calcium 8.2 mg/dL (8.3-10.6); Calcium (Corrected) 8.2 mg/dL (8.5-10.1); Carbon Dioxide 27.3 mMol/L (20.0-31.0); Chloride 102 mMol/L (98-107); Creatinine (Component) 4.8 mg/dL (0.6-1.3); Estimated Creatinine Clearance 11.9 mL/min (>60); Globulin 2.9 gm/dL (2.3-3.5); Glucose 87 mg/dL (74-106); Magnesium 2.2 mg/dL (1.6-2.6); Osmolality,Calculated 283 (275-295); Phosphorous 5.0 mg/dL (2.4-5.1); Potassium 4.9 mMol/L (3.4-5.1); Sodium 141 mMol/L (136-145); Total Protein 7.0 gm/dL (5.7-8.2); eGFR 10 See Note
[2025-06-10 06:33] LABS: Glucose Estimated Average 140 mg/dL (80-131); Hemoglobin A1C 6.5 % Hgb (4.8-6.0)
[2025-06-10 07:31] LABS: Vancomycin,Random 11.1 mcg/mL
--- NOTE | 2025-06-10 07:41 | EKG_ITS ---
[facility] Test Date: 2025-06-10 Pat Name: CLAUDE GU Department: Room: S273A Gender: Female Features Reporter: ELSIE : 1970 Requested By: Rio Alvarado Order Number: [id number] Reading MD: Rio Alvarado Measurements Intervals [place] Rate: 67 P: 68 MD: 186 QRS: 170 QRSD: 162 T: 6 QT: 508 QTc: 539 Interpretive Statements SINUS RHYTHM MARKED RIGHT AXIS DEVIATION INTRAVENTRICULAR CONDUCTION DELAY Compared to ECG 06/08/2025 09:04:44 No significant changes /store/S0/[id number].pdf
[2025-06-10] MEDS: CEFEPIME INJ 1 GM in SODIUM CHLORIDE 0.9% (Popper) 50 ML IV (08:16)
[2025-06-10] MEDS: HEPARIN SOD INJ 5000 UNIT/ML VIAL SC ×2 (08:18→20:32)
[2025-06-10] MEDS: SEVELAMER CARBONATE 800 MG TABLET PO ×3 (08:18→17:18)
[2025-06-10] MEDS: ZINC SULFATE 220 MG CAPSULE PO (08:18)
[2025-06-10] MEDS: CHOLESTYRAMINE/SUCROSE 1 PKT EA PO (08:18)
[2025-06-10] MEDS: Acetic Acid Irrig 0.25% 500 ML BTL 250 ML IRRIG (08:19)
[2025-06-10] MEDS: Silvasorb Gel 45 ML TUBE TOP (08:19)
[2025-06-10] MEDS: ASCORBIC ACID 250 MG TABLET PO ×2 (08:19→20:32)
[2025-06-10] MEDS: VIT B12/Vit C/FA (Nephrovite) TABLET 1 TAB PO (08:27)
--- NOTE | 2025-06-10 08:46 | ESPR_ITS ---
Documentation for date of: 06/10/25 Subjective Subjective Interval history: History of present illness: Ms. Aguilar is a 54-year-old lady with extensive past medical history of uncontrolled hypertension and diabetes for many years ended up on dialysis 2 years ago under my care and has been coming to dialysis treatments on TTS (noncompliant with treatments due to loose stools) was admitted to the emergency department brought by paramedics with altered mental status and noted to have possible sepsis from the right leg wound. Patient was admitted a couple of months ago and had a left BKA for gangrene. She missed her dialysis session on Saturday. In ED white count 15.6, hemoglobin 11, platelets 137 sodium 138, potassium 6.9, bicarbonate 21.9, BUN 51, creatinine 8.8, blood sugar 82, calcium 8.2, total bilirubin 1.4, AST 44, ALT 17, alk phos 123, BNP 2473, albumin 3.9, Pro-Antwan 3.41, urinalysis shows a WBC 11. Abdominal pelvic CT showed liver cirrhosis with moderate ascites and anasarca. Head CT was negative. Patient will be admitted for sepsis secondary to RLE cellulitis//diabetic wounds. Nephrology consulted for emergency dialysis dialysis. Patient currently seen on dialysis. 06/09/25: Patient seen and assessed at bedside. No complaints. Answering questions appropriately, back at mental baseline. AOx2. Per patient, she is on HD MWF schedule, last session was Saturday. WBC improving. Potassium 5.2 (from 6.9). BUN 36 (from 51), Cr 6.4 (from 8.8), GFR 7 (from 5), phos 7.3. S/p HD -1L yesterday, plan for another session today. Strict INOs. Started on cefepime and vancomycin renally dosed. 06/10/25: Patient seen and assessed at bedside. Had 12 bowel movements overnight. Only removed 0.9L yesterday due to headaches. Potassium improved to 4.9 from 5.2. Plan for dialysis tomorrow to adhere to MWF schedule. Exam Vital Signs Temp Pulse Resp BP Pulse Ox O2 Del Method O2 Flow Rate 97.4 F 70 21 H 118/64 97 Room Air 1 06/10/25 08:00 06/10/25 08:00 06/10/25 08:00 06/10/25 08:00 06/10/25 08:00 06/10/25 08:00 06/09/25 17:22 Narrative Exam Physical Exam General: Awake and in no acute distress. Conversational and non-toxic appearing. HEENT: Normocephalic, atraumatic, mucous membranes dry. Heart: Regular rate and rhythm, normal S1 and S2, no murmurs appreciated. Lungs: Mildly decreased breath sounds in right lower lung, otherwise clear in all other lobes. Abdomen: Soft, nondistended, nontender, positive bowel sounds. No guarding or rebound tenderness. Neurologic: Alert and oriented x3, no gross neurological deficit, and patient able to move all extremities. Extremities: No edema. Dry wrinkled skin on right lower extremity. Left BKA nontender on palpation, wound vac in place. New open wound at right lower leg. 1+ pitting edema of right lower extremity with tenderness on palpation, no erythema observed. Skin: Severe eczema and dry skin on upper extremities. No ecchymoses. Objective Labs 06/10/25 04:30 06/10/25 04:30 Labs: Laboratory Results - last 24 hr 06/09/25 06/10/25 05:08 04:30 WBC 7.6 RBC 3.24 L Hgb 9.4 L Hct 31.3 L MCV 97 MCH 29.0 MCHC 30.0 L RDW Std Deviation 61.1 H Plt Count 128 L Neut % (Auto) 77 Lymph % (Auto) 8 L [place] % (Auto) 7 Eos % (Auto) 8 Baso % (Auto) 0 Neut # (Auto) 5.8 Lymph # (Auto) 0.6 L [place] # (Auto) 0.5 Eos # (Auto) 0.6 H Baso # (Auto) 0.0 Immature Gran # (Auto) 0.02 H Absolute Nucleated RBC 0.00 Immature Gran % 0 Nucleated RBC % 0 Sodium 141 Potassium 4.9 Chloride 102 Carbon Dioxide 27.3 Anion Gap 12 BUN 22 Creatinine 4.8 H* D Estim Creat Clear Calc 11.9 L eGFR 10 L* BUN/Creatinine Ratio 5 L Glucose [address] Glu mg/dL 140 H Hemoglobin A1c 6.5 H Calculated Osmolality 283 Calcium 8.2 L Corrected Calcium 8.2 L Phosphorus 5.0 Magnesium 2.2 Total Bilirubin 1.1 AST 89 H ALT 35 Alkaline Phosphatase 88 Total Protein 7.0 Albumin 4.1 Globulin 2.9 Albumin/Globulin Ratio 1.4 Random Vancomycin 14.6 11.1 Quality Measures Quality Measures sepsis Current suspected stage: sepsis Possible source: unknown Blood cultures ordered: completed in ED Antibiotic ordered: Yes Assessment & Plan Assessment Current Active Medications: Generic Name Dose Route Start Last Admin Trade Name Freq PRN Reason Stop Dose Admin Acetaminophen 500 mg 06/08/25 18:16 06/09/25 16:59 Acetaminophen 500 Mg Tablet PO 07/08/25 18:15 500 mg Q6H PRN Administration fever >100 or pain 1-3 Acetic Acid 250 ml 06/09/25 14:15 06/10/25 08:19 Acetic Acid Irrig 0.25% 500 Ml Btl IRRIG 07/09/25 14:14 250 ml DAILY LIU Administration Ascorbic Acid 250 mg 06/09/25 21:00 06/10/25 08:19 Ascorbic Acid 250 Mg Tablet PO 07/09/25 20:59 250 mg BID LIU Administration Atorvastatin Calcium 40 mg 06/09/25 21:00 06/09/25 20:11 Atorvastatin Calcium 20 Mg Tablet PO 07/09/25 20:59 40 mg HS LIU Administration Calamine 0 ml 06/09/25 11:15 06/09/25 18:16 Calamine Lotion 120 Ml Btl TOP 07/09/25 11:14 1 dose UD LIU Administration Cholestyramine Resin 1 pkt 06/10/25 09:00 06/10/25 08:18 Cholestyramine/Sucrose 1 Pkt Ea PO 07/10/25 08:59 1 pkt QDAY LIU Administration Dextrose 25 ml 06/08/25 18:41 Dextrose 50%-Water Inj 50 Ml Syringe IV 07/08/25 18:40 Q15MIN PRN BG 50-70 responsive npo pt Dextrose 50 ml 06/08/25 18:41 Dextrose 50%-Water Inj 50 Ml Syringe IV 07/08/25 18:40 Q15MIN PRN BG <50 OR BG <70 & pt unresponsive Diphenhydramine HCl 25 mg 06/10/25 07:39 Diphenhydramine 25 Mg Capsule PO 07/10/25 07:38 Q6H PRN ITCHING Glucagon 1 mg 06/08/25 18:41 Glucagon Inj 1 Mg Vial IM Q15MIN PRN BG <70, and no IV access Heparin Sodium (Porcine) 5,000 unit 06/08/25 20:00 06/10/25 08:18 Heparin Sod Inj 5000 Unit/Ml Vial SC 06/22/25 19:59 5,000 unit Q12HR LIU Administration Albumin Human 25 gm in 100 mls @ 100 mls/hr 06/08/25 11:00 06/09/25 19:48 Albuminex 25% Ivpb IV Infused Q30MIN PRN Infusion DIALYSIS Cefepime HCl 1 gm/ Sodium 50 mls @ 100 mls/hr 06/09/25 11:15 06/10/25 08:16 Chloride IV 06/16/25 11:14 100 mls/hr DAILY LIU Administration Vancomycin/Sodium Chloride 100 mls @ 120 mls/hr 06/10/25 18:00 Vancomycin/Ns 500 Mg Ivpb IV 06/10/25 18:49 X1 ONE Insulin Human Lispro 0 unit 06/09/25 21:00 06/10/25 07:30 Insulin Lispro (Admelog) 1 Unit/0.01 Ml Unit SC 07/09/25 20:59 Not Given ACHS LIU Protocol Loperamide HCl 2 mg 06/10/25 07:39 Loperamide 2 Mg Capsule PO 06/17/25 07:38 Q1H PRN DIARRHEA Melatonin 3 mg 06/09/25 08:40 06/09/25 21:20 Melatonin 3 Mg Tablet PO 07/09/25 08:39 3 mg HS PRN Administration INSOMNIA Ondansetron HCl 4 mg 06/08/25 18:16 Ondansetron Inj 2 Mg/Ml Inj 2 Ml IVP 07/08/25 18:15 Q6H PRN NAUSEA OR VOMITING Protocol Pharmacy Consult 1 each 06/08/25 18:41 Pharmacy Renal Dose Adjustment 1 Ea XX 07/08/25 18:40 PRN PRN Consult Pharmacy Consult 1 each 06/09/25 08:19 Vancomycin Pharmacy To Dose 1 Each Each IV 07/09/25 08:18 QDAY PRN COSULT Sevelamer Carbonate 800 mg 06/09/25 08:45 06/10/25 08:18 Sevelamer Carbonate 800 Mg Tablet PO 07/09/25 08:44 800 mg TIDWMEAL LIU Administration Protocol Vitamin B Complex/Vit C/Folic Acid 1 tab 06/10/25 09:00 06/10/25 08:27 Vit B12/Vit C/Fa (Nephrovite) Tablet PO 07/10/25 08:59 1 tab QDAY LIU Administration Zinc Sulfate 220 mg 06/10/25 09:00 06/10/25 08:18 Zinc Sulfate 220 Mg Capsule PO 06/24/25 08:59 220 mg QDAY LIU Administration Plan Patient is a 55-year-old female with PMHx of HTN, IDDM type II, HFpEF EF 55% on 08/2024, ESRD on HD TTS, presenting with right heel pain. Patient has been consulted to nephrology for managment of ESRD on HD #ESRD on hemodialysis MWF #Anemia of Chronic Kidney disease #Hyperkalemia-missed dialysis (improving) - On HD MWF per patient, last session Saturday. Denies missing session however has history of noncompliance - Potassium 6.9 on admission, improved to 5.2 - S/p urgent hemodialysis for 3 hours, 2K, ultrafiltration 2-3 L, Epogen 6000, no heparin. Removed 1L. Plan: - Plan for HD tomorrow to resume patient back on MWF schedule. - Monitor renal function - Maintain fluid restriction 1500 mL - Avoid nephrotoxic agents - Renally dose medications - Strict INOs # Sepsis secondary to right foot wound # Patient with PVD. s/p left BKA #IDDM #HFrEF EF 55% 08/2024 -Management per Primary Hospitalist team Thank you Jay for allowing me to participate in the care of Mr. Aguilar. Patient plan of care was discussed with the attending physician, Dr. Yap. Delmis Lazcano DO, PGY-1 Attending Provider Attestation/Addendum Patient currently seen and examined with resident physician Dr. Lazcano. Note reviewed, agree with findings and recommendations. Currently seen in telemetry. Resting comfortably. Significant edema noted in the right lower extremity. Wounds noted. On broad-spectrum antibiotics. Patient with a rt leg infection. left BKA. Significant edema-cholestyramine, Lomotil ordered Right leg Doppler ultrasound to rule out DVT ordered
--- NOTE | 2025-06-10 14:22 | ESPR_ITS ---
<Statement entered by Rio Alvarado MD - 06/10/25 17:35> I saw and examined patient personally and supervised PGY 1 resident, Dr. Ritter with formulating a management plan. I agree with the documentation with the exceptions as listed below. 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 Davey presented to the ED on 06/08/2025 BIBA from SNF for evaluation of altered mental status. Problem list: 1. Altered mental status secondary to acute metabolic encephalopathy 2. Sepsis secondary to right leg cellulitis 3. Hyperkalemia 4. Uremia 5. ESRD on HD 6. Fluid overload secondary to missed dialysis session 7. MASH with cirrhosis 8. Anion gap metabolic acidosis 9. Insulin-dependent diabetes mellitus type 2 Blood cultures showed no bacterial growth x 48 hours, urine and wound cultures still pending. Repeat EKG showed QT still prolonged at 536. Will continue vancomycin and Zosyn IV for now. Upon discharge we will want to place patient on pseudomonal coverage antibiotics, however her QTc is prolonged. Cardiology consulted, appreciate recommendations. Plan of care discussed with Attending Dr. Temi Alvarado MD PGY 2 Disclaimer: This note was dictated by speech recognition. Minor errors in rail track layer may be present due to voice recognition software. Documentation for date of: 06/10/25 Subjective Subjective Interval history: No acute night events. Patient seen examined at bedside. Patient's mentation is much improved today and is conversational and alert relative to when she first came in. States that she is feeling restless and which is typical of her. She keeps moving in her bed. Denies any lower extremity pain. Does endorse itchiness of outer arms and on face states she feels like she is being bit and noticed bugs a while ago, unclear timeline. Endorses appearance of hyperpigmented spots on bilateral outer arms and on face 6 months ago which she attributed to insect bites. Started calamine lotion. Social work will investigate possible insects at SNF although patient did report presence of hyperpigmented spots prior to SNF admission. Exam Vital Signs Temp Pulse Resp BP Pulse Ox O2 Del Method O2 Flow Rate 97.4 F 65 21 H 114/52 L 97 Room Air 1 06/10/25 08:00 06/10/25 11:16 06/10/25 08:00 06/10/25 11:16 06/10/25 08:00 06/10/25 08:00 06/09/25 17:22 Narrative Exam GENERAL: AOx3, no acute distress HEENT: mucous membranes moist, bilateral sclera anicteric CARDIOVASCULAR: regular rate and rhythm, S1/S2 present, 2/6 systolic murmur best heard at 2nd L intercostal, L AVF patent with palpable thrill PULMONARY: clear to auscultation bilaterally, no rales/rhonchi/wheezes ABDOMINAL: soft, non-tender, non-distended, no rebound/guarding, bowel sounds present, tympanic EXTREMITIES: no peripheral edema, multiple hyperpigmented skin papules across bilateral outer upper arms and on face SKIN: warm and dry, findings as above NEURO: CN II-XII grossly intact, no focal deficits, alert, following commands Objective Labs 06/11/25 05:06 06/11/25 05:06 Labs: Laboratory Results - last 24 hr 06/10/25 04:30 WBC 7.6 RBC 3.24 L Hgb 9.4 L Hct 31.3 L MCV 97 MCH 29.0 MCHC 30.0 L RDW Std Deviation 61.1 H Plt Count 128 L Neut % (Auto) 77 Lymph % (Auto) 8 L Sequoyah % (Auto) 7 Eos % (Auto) 8 Baso % (Auto) 0 Neut # (Auto) 5.8 Lymph # (Auto) 0.6 L Sequoyah # (Auto) 0.5 Eos # (Auto) 0.6 H Baso # (Auto) 0.0 Immature Gran # (Auto) 0.02 H Absolute Nucleated RBC 0.00 Immature Gran % 0 Nucleated RBC % 0 Sodium 141 Potassium 4.9 Chloride 102 Carbon Dioxide 27.3 Anion Gap 12 BUN 22 Creatinine 4.8 H* D Estim Creat Clear Calc 11.9 L eGFR 10 L* BUN/Creatinine Ratio 5 L Glucose [address] Glu mg/dL 140 H Hemoglobin A1c 6.5 H Calculated Osmolality 283 Calcium 8.2 L Corrected Calcium 8.2 L Phosphorus 5.0 Magnesium 2.2 Total Bilirubin 1.1 AST 89 H ALT 35 Alkaline Phosphatase 88 Total Protein 7.0 Albumin 4.1 Globulin 2.9 Albumin/Globulin Ratio 1.4 Random Vancomycin 11.1 Quality Measures Quality Measures sepsis Current suspected stage: ruled out Possible source: unknown Blood cultures ordered: completed in ED Antibiotic ordered: Yes Assessment & Plan Assessment Current Active Medications: Generic Name Dose Route Start Last Admin Trade Name Freq PRN Reason Stop Dose Admin Acetaminophen 500 mg 06/08/25 18:16 06/09/25 16:59 Acetaminophen 500 Mg Tablet PO 07/08/25 18:15 500 mg Q6H PRN Administration fever >100 or pain 1-3 Acetic Acid 250 ml 06/09/25 14:15 06/10/25 08:19 Acetic Acid Irrig 0.25% 500 Ml Btl IRRIG 07/09/25 14:14 250 ml DAILY LIU Administration Ascorbic Acid 250 mg 06/09/25 21:00 06/10/25 08:19 Ascorbic Acid 250 Mg Tablet PO 07/09/25 20:59 250 mg BID LIU Administration Atorvastatin Calcium 40 mg 06/09/25 21:00 06/09/25 20:11 Atorvastatin Calcium 20 Mg Tablet PO 07/09/25 20:59 40 mg HS LIU Administration Calamine 0 ml 06/09/25 11:15 06/10/25 11:58 Calamine Lotion 120 Ml Btl TOP 07/09/25 11:14 1 dose UD LIU Administration Cholestyramine Resin 1 pkt 06/10/25 09:00 06/10/25 08:18 Cholestyramine/Sucrose 1 Pkt Ea PO 07/10/25 08:59 1 pkt QDAY LIU Administration Dextrose 25 ml 06/08/25 18:41 Dextrose 50%-Water Inj 50 Ml Syringe IV 07/08/25 18:40 Q15MIN PRN BG 50-70 responsive npo pt Dextrose 50 ml 06/08/25 18:41 Dextrose 50%-Water Inj 50 Ml Syringe IV 07/08/25 18:40 Q15MIN PRN BG <50 OR BG <70 & pt unresponsive Diphenhydramine HCl 25 mg 06/10/25 07:39 Diphenhydramine 25 Mg Capsule PO 07/10/25 07:38 Q6H PRN ITCHING Glucagon 1 mg 06/08/25 18:41 Glucagon Inj 1 Mg Vial IM Q15MIN PRN BG <70, and no IV access Heparin Sodium (Porcine) 5,000 unit 06/08/25 20:00 06/10/25 08:18 Heparin Sod Inj 5000 Unit/Ml Vial SC 06/22/25 19:59 5,000 unit Q12HR LIU Administration Albumin Human 25 gm in 100 mls @ 100 mls/hr 06/08/25 11:00 06/09/25 19:48 Albuminex 25% Ivpb IV Infused Q30MIN PRN Infusion DIALYSIS Cefepime HCl 1 gm/ Sodium 50 mls @ 100 mls/hr 06/09/25 11:15 06/10/25 08:16 Chloride IV 06/16/25 11:14 100 mls/hr DAILY LIU Administration Vancomycin/Sodium Chloride 100 mls @ 120 mls/hr 06/10/25 18:00 Vancomycin/Ns 500 Mg Ivpb IV 06/10/25 18:49 X1 ONE Insulin Human Lispro 0 unit 06/09/25 21:00 06/10/25 11:58 Insulin Lispro (Admelog) 1 Unit/0.01 Ml Unit SC 07/09/25 20:59 Not Given ACHS [facility] Protocol Loperamide HCl 2 mg 06/10/25 07:39 Loperamide 2 Mg Capsule PO 06/17/25 07:38 Q1H PRN DIARRHEA Melatonin 3 mg 06/09/25 08:40 06/09/25 21:20 Melatonin 3 Mg Tablet PO 07/09/25 08:39 3 mg HS PRN Administration INSOMNIA Ondansetron HCl 4 mg 06/08/25 18:16 Ondansetron Inj 2 Mg/Ml Inj 2 Ml IVP 07/08/25 18:15 Q6H PRN NAUSEA OR VOMITING Protocol Pharmacy Consult 1 each 06/08/25 18:41 Pharmacy Renal Dose Adjustment 1 Ea XX 07/08/25 18:40 PRN PRN Consult Pharmacy Consult 1 each 06/09/25 08:19 Vancomycin Pharmacy To Dose 1 Each Each IV 07/09/25 08:18 QDAY PRN COSULT Sevelamer Carbonate 800 mg 06/09/25 08:45 06/10/25 11:57 Sevelamer Carbonate 800 Mg Tablet PO 07/09/25 08:44 800 mg TIDWMEAL LIU Administration Protocol Vitamin B Complex/Vit C/Folic Acid 1 tab 06/10/25 09:00 06/10/25 08:27 Vit B12/Vit C/Fa (Nephrovite) Tablet PO 07/10/25 08:59 1 tab QDAY LIU Administration Zinc Sulfate 220 mg 06/10/25 09:00 06/10/25 08:18 Zinc Sulfate 220 Mg Capsule PO 06/24/25 08:59 220 mg QDAY LIU Administration Plan 55 year old female with history of HFpEF (EF 50-55% on 03/2025), hypertension, diabetes, ESRD on HD MWF, 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 Davey presented to the ED on 06/08/2025 BIBA from SNF for evaluation of altered mental status. #Sepsis 2/2 #Cellulitis of LLE and RUE #LUE wound s/p L BKA 04/01/2025 #Open Wound Rt anterior lower LE and eligio-anal area #Leukocytosis Clinical picture meets 2/4 SIRS criteria: T 103.2 (>100.9 or <96.8F), RR 16 (>20/min), HR 80 (>90/min), WBC 15.6 (>12 or <4K or Bands >10%). Acute encephalopathy enumerated as endorgan damage. Cellulitis of the right lower extremity accounting for source of infection. Pro-Antwan 3.41. + On PE, patient has marked warmth, erythema, and swelling of the right lower extremity up to her thigh. + s/p IVB NS 1L, difficulty with further fluid repletion due to ESRD and volume overload status. + UA was negative RLE CT: diffuse cellulitis. Zosyn (06/08-06/09). Wound culture on 05/21 grew Pseudamonas +Repeat EKG ordered (06/10) showed QTc prolonged at 539. Plan: - consulted Cardiology for prolonged QTc and risk assessment with discharging the pt on flouroquinolone and doxycycline - Cefepime (06/09- and vancomycin (06/08- - referral wound care and continue wound vac - ordered U ctx #Anasarca 08/09 #ESRD on HD (MWF) #Hyperkalemia #Atrophic kidneys CMP consistent with ESRD, K+ 6.9, AG 17, BUN 51, CR 8.8, eGFR 5, troponin 0.144, BNP 2473. Missed HD on Saturday prior to admission. Pt received calcium gluconate 1g in the ED ? CXR showed mild enlargement of cardiac contour, prominent vascular congestion with edema and/or pneumonia in the lung burch ? CTAP revealed right pleural fluid, prominent vascular congestion, ? patient's last echo was in March 2025, demonstrated normal LV size, hypokinetic anterior septal wall motion, grade 1 diastolic dysfunction without a EF of 50 to 55%. RVSP was 47. Patient s/p urgent hemodialysis session with removal of 1.5 L on 06/08 Plan: - Nephrology, Dr. Yap, consulted: HD today - fluid restriction 1.5L, strict KIRILL, daily weights -pending sputum and blood ctx - [employer] and supplemental O2 to keep sat >92% #Prurigo Nodularis #Hyperpigmented skin lesions #Pruritus Patient reports pruritus for the past 6 months. Did come from SNF however patient reports she felt as if bugs were biting her before she arrived to SNF and since then she has been itchy. No active bites however patient noted to have hyperpigmented papules on bilateral arms, upper back and on face that started 6 months ago. Eosinophils wnl. Ddx: prurigo nodularis, insect bites, post inflammatory hyperpigmentation, sebhorreic keratosis, Leser-Tr?lat sign Plan: - Calamine lotion - Low threshold for steroids as low suspicion of insect bites - director construction services to call SNF to investigate possible insects #IBS Patient gets episodes of recurrent persistent diarrhea. On 06/10, patient had 12 loose BM. -Restarted cholestyramine PO 1pkt Qday -Restarted home med loperamide PO 2mg Q1h PRN #Altered mental status #Metabolic vs infectious encephalopathy Patient was brought in from SNF for AMS, making blank stares to calls of nursing staff at the facility. On assessment, patient is very drowsy, only awakens to sternal rub and falls back to sleep before answering any questions addressed to her.? ??CT head negative for acute hemorrhage, mass effect, or midline shift? B12, folate, ammonia, TSH wnl Plan: - Treat underlying infection and continue HD sessions - Head of Bed 30 Degrees, aspiration precautions - Passed swallow eval, renal diet started #Acute hypoxic respiratory failure, improving 2/2 #Anasarca Presented with SOB and CXR shows vascular congestion with edema. Likely 2/2 missed HD session. Plan: - Continue supplemental O2 as needed and downtitrate #MASH with cirrhosis #Hepatomegaly with irregular liver contour #Thrombocytopenia #Anemia, normocytic #Lactic Acidosis, resolved #AGMA, resolved ? CTAP revealed cirrhosis, hepatomegaly with irregular liver contour T.?bili?1.4, AST 44, LA 3.0 ->2.6 after 1L of IVB saline. ? PT 13.1 (H), INR 1.3, aPTT 27.3 Plt 137 and Hgb 11, likely anemia of chronic disease MELD-Na score 25: 15% mortality within 90 days. Ammonia wnl. Plan: - CTM LFTs #HFpEF (EF 50-55% on 03/2025) Stable. Plan: - CTM fluid status and caution with fluids #T2DM, insulin dependent Hgb A1c 7.7 on 03/16/2025 -insulin sliding scale #HLD - Atorvastatin 40 mg qhs Health Maintenance: Disposition: telemetry Diet: Renal PPx DVT: Heparin SC 5000u bid PPx GI: not indicated Code Status: Routine This case was discussed with my attending physician, Dr. Membreno, and senior resident Dr Alvarado. Even though this this note was carefully revised there may still be minor errors in rail track layer due to voice recognition software. Blayne Ritter DO Internal Medicine PGY-1 Attending Provider Attestation/Addendum I have discussed and was present for the essential components of the history, physical examination, diagnosis, and treatment plan with the resident. I agree with the patient's care as documented by the resident and amended herein by me. Jay Membreno DO. Although this document has been carefully reviewed, there may still be some phonetic and other typographical errors. These errors are purely grammatical due to imperfections in the software program and should not be construed in any way to compromise the substance of the patient's medical care during this visit.
--- NOTE | 2025-06-10 15:01 | ESCONSULT_ITS ---
<Statement entered by Surjit Barclay MD - 06/15/25 12:48> I personally examined evaluated this patient with question of QT prolongation patient appears to be stable QT prolongation appears to be not significant manual measurements suggest that the QT is fairly normal no need to be concerned. Evaluated patient with resident physician agree with treatment plan recommendation as documented HPI Data of Consult Requesting Physician: Hernandez Membreno DO Admitting Provider: Hernandez Membrneo DO Attending Provider: Hernandez Membreno DO Primary Care Provider: Physician No Primary/Family Consult Narrative Reason for consult: prolonged QT interval History of present illness: Patient is 55 yr female with PMH of HFpEF (EF 50-55% on 03/2025), hypertension, diabetes, ESRD on HD T//Sat, s/p left BKA on 03/25/2025 who presented to ED from SNF for evaluation of altered mental status. Patient missed recent dialysis session. In ED: Upon presentation, VSS: BP 124/75, T103.2, RR 16, HR 80, O2 96% in RA. Labs showed WBC 15.6, Hgb 11.0, CMP consistent with ESRD, K+ 6.9, AG 17, BUN 51, CR 8.8, eGFR 5, T. bili 1.4, AST 44, troponin 0.144, BNP 2473, Pro-Antwan 3.41. CTAP revealed right pleural fluid, prominent vascular congestion, cirrhosis, atrophic kidneys, and atrophic uterus. EKG demonstrated sinus rhythm however QTc prolonged at 543. patient's last echo was in March 2025, demonstrated normal LV size, hypokinetic anterior septal wall motion, grade 1 diastolic dysfunction without a EF of 50 to 55%. RVSP was 47. Patient on vancomycin and cefepime for treatment of cellulitis. Underwent hemodialysis session today with improvement in mental status. Cardiology was consulted for prolonged QT interval. Medications were reviewed. Does not appear to be on any QT prolonging agent except for diphenhydramine which is classified as a low risk medication. Electrolytes today potassium 4.9, magnesium 2.2, calcium 8.2. Denies any shortness of breath, palpitations, chest pain. cc:: cc: Hernandez Membreno DO Review of Systems Review of Systems Systems Reviewed: All systems reviewed, normal except as documented Exam Vital Signs Temp Pulse Resp BP Pulse Ox O2 Del Method O2 Flow Rate 97.4 F 74 19 103/67 99 Room Air 1 06/10/25 12:00 06/10/25 12:00 06/10/25 12:00 06/10/25 12:00 06/10/25 12:00 06/10/25 12:00 06/09/25 17:22 Narrative Exam General: Awake and in no acute distress. Conversational and non-toxic appearing. HEENT: Normocephalic, atraumatic, mucous membranes dry,. Heart: Regular rate and rhythm, normal S1 and S2, no murmurs appreciated. Lungs: Clear to auscultation no wheezing or crackles Abdomen: Soft, nondistended, nontender, positive bowel sounds. No guarding or rebound tenderness. Neurologic: Alert and oriented x2, no gross neurological deficit, and patient able to move all extremities. Extremities: No edema. Dry wrinkled skin on right lower extremity. Left BKA nontender on palpation, wound vac in place. New open wound at right lower leg. 1+ pitting edema of right lower extremity with tenderness on palpation, no erythema observed. Skin: Severe eczema and dry skin on upper extremities. No ecchymoses. Results Labs 06/10/25 04:30 06/10/25 04:30 Labs: Short CBC 06/10/25 Range/Units 04:30 WBC 7.6 (3.6-11.0) Thou/mm3 Hgb 9.4 L (12.0-16.0) g/dL Hct 31.3 L (36.0-46.0) % Plt Count 128 L (140-440) Thou/mm3 BMP 06/10/25 04:30 Sodium 141 Potassium 4.9 Chloride 102 Carbon Dioxide 27.3 BUN 22 Creatinine 4.8 H* D Glucose 87 Calcium 8.2 L Liver Function 06/10/25 Range/Units 04:30 Total Bilirubin 1.1 (0.3-1.2) mg/dL AST 89 H (0-34) U/L ALT 35 (10-49) U/L Alkaline Phosphatase 88 (46-116) U/L Albumin 4.1 (3.5-5.0) gm/dL Quality Measures Quality Measures sepsis Current suspected stage: ruled out Possible source: unknown Blood cultures ordered: completed in ED Antibiotic ordered: Yes Medications Home Medications and Allergies Home Medications ?Medication ?Instructions ?Recorded ?Confirmed ?Type acetaminophen 325 mg tablet (Pain 650 mg PO Q6H PRN pa in 06/08/25 06/08/25 History Relief (acetaminophen)) amino acids-protein hydrolysate 15 1 ea PO DAILY 06/0806/08/25 History gram-100 kcal/30 mL oral liquid (Pro-Stat Sugar Free) diphenhydramine HCl 25 mg capsule 25 mg PO Q6H PRN itc jeff 06/08/25 06/08/25 History (Allergy Relief (diphenhydramine)) sevelamer carbonate 800 mg tablet 800 mg PO .with meal s 06/08/25 06/08/25 History vitamin B complex-vitamin C-folic 1 tab PO QDAY 06/08/25 History acid 0.8 mg tablet (Michaelle-Dominick) Allergies Allergy/AdvReac Type Severity Reaction Status Date / Time No Known Allergies Allergy Verified 03/16/25 00:43 Visit Medications Acetaminophen (Acetaminophen 500 Mg Tablet) 500 mg PO Q6H PRN PRN Reason: fever >100 or pain 1-3 Stop: 07/08/25 18:15 Last Admin: 06/09/25 16:59 Dose: 500 mg Acetic Acid (Acetic Acid Irrig 0.25% 500 Ml Btl) 250 ml IRRIG DAILY LIU Stop: 07/09/25 14:14 Last Admin: 06/10/25 08:19 Dose: 250 ml Ascorbic Acid (Ascorbic Acid 250 Mg Tablet) 250 mg PO BID LIU Stop: 07/09/25 20:59 Last Admin: 06/10/25 08:19 Dose: 250 mg Atorvastatin Calcium (Atorvastatin Calcium 20 Mg Tablet) 40 mg PO HS LIU Stop: 07/09/25 20:59 Last Admin: 06/09/25 20:11 Dose: 40 mg Calamine (Calamine Lotion 120 Ml Btl) 0 ml TOP UD LIU Stop: 07/09/25 11:14 Last Admin: 06/10/25 11:58 Dose: 1 dose Cholestyramine Resin (Cholestyramine/Sucrose 1 Pkt Ea) 1 pkt PO QDAY LIU Stop: 07/10/25 08:59 Last Admin: 06/10/25 08:18 Dose: 1 pkt Dextrose (Dextrose 50%-Water Inj 50 Ml Syringe) 25 ml IV Q15MIN PRN PRN Reason: BG 50-70 responsive npo pt Stop: 07/08/25 18:40 Dextrose (Dextrose 50%-Water Inj 50 Ml Syringe) 50 ml IV Q15MIN PRN PRN Reason: BG <50 OR BG <70 & pt unresponsive Stop: 07/08/25 18:40 Diphenhydramine HCl (Diphenhydramine 25 Mg Capsule) 25 mg PO Q6H PRN PRN Reason: ITCHING Stop: 07/10/25 07:38 Glucagon (Glucagon Inj 1 Mg Vial) 1 mg IM Q15MIN PRN PRN Reason: BG <70, and no IV access Heparin Sodium (Porcine) (Heparin Sod Inj 5000 Unit/Ml Vial) 5,000 unit SC Q12HR LIU Stop: 06/22/25 19:59 Last Admin: 06/10/25 08:18 Dose: 5,000 unit Albumin Human (Albuminex 25% Ivpb) 25 gm in 100 mls @ 100 mls/hr IV Q30MIN PRN PRN Reason: DIALYSIS Last Infusion: 06/09/25 19:48 Dose: Infused Cefepime HCl 1 gm/ Sodium (Chloride) 50 mls @ 100 mls/hr IV DAILY LIU Stop: 06/16/25 11:14 Last Admin: 06/10/25 08:16 Dose: 100 mls/hr Vancomycin/Sodium Chloride (Vancomycin/Ns 500 Mg Ivpb) 100 mls @ 120 mls/hr IV X1 ONE Stop: 06/10/25 18:49 Insulin Human Lispro (Insulin Lispro (Admelog) 1 Unit/0.01 Ml Unit) 0 unit SC ACHS LIU; Protocol Stop: 07/09/25 20:59 Last Admin: 06/10/25 11:58 Dose: Not Given Loperamide HCl (Loperamide 2 Mg Capsule) 2 mg PO Q1H PRN PRN Reason: DIARRHEA Stop: 06/17/25 07:38 Melatonin (Melatonin 3 Mg Tablet) 3 mg PO HS PRN PRN Reason: INSOMNIA Stop: 07/09/25 08:39 Last Admin: 06/09/25 21:20 Dose: 3 mg Ondansetron HCl (Ondansetron Inj 2 Mg/Ml Inj 2 Ml) 4 mg IVP Q6H PRN; Protocol PRN Reason: NAUSEA OR VOMITING Stop: 07/08/25 18:15 Pharmacy Consult (Pharmacy Renal Dose Adjustment 1 Ea) 1 each XX PRN PRN PRN Reason: Consult Stop: 07/08/25 18:40 Pharmacy Consult (Vancomycin Pharmacy To Dose 1 Each Each) 1 each IV QDAY PRN PRN Reason: COSULT Stop: 07/09/25 08:18 Sevelamer Carbonate (Sevelamer Carbonate 800 Mg Tablet) 800 mg PO TIDWMEAL [facility]; Protocol Stop: 07/09/25 08:44 Last Admin: 06/10/25 11:57 Dose: 800 mg Vitamin B Complex/Vit C/Folic Acid (Vit B12/Vit C/Fa (Nephrovite) Tablet) 1 tab PO QDAY LIU Stop: 07/10/25 08:59 Last Admin: 06/10/25 08:27 Dose: 1 tab Zinc Sulfate (Zinc Sulfate 220 Mg Capsule) 220 mg PO QDAY LIU Stop: 06/24/25 08:59 Last Admin: 06/10/25 08:18 Dose: 220 mg Discontinued Medications Acetaminophen (Acetaminophen Supp 650 Mg Supp) [address] X1 ONE Stop: 06/08/25 07:53 Last Admin: 06/08/25 08:00 Dose: 650 mg Calamine (Calamine Lotion 120 Ml Btl) 0 ml TOP UD PRN PRN Reason: ITCHING Stop: 07/09/25 11:05 Calcium Gluconate (Calcium Gluconate 10% Inj 1 Gm/10 Ml Vial) 1 gm IV X1 ONE Stop: 06/08/25 09:40 Last Admin: 06/08/25 10:13 Dose: 1 gm Epoetin Darrell (Epoetin Darrell-Epbx Inj 10,000 Unit/Ml Vial (Non-Esrd)) 10,000 unit SC X1 ONE Stop: 06/09/25 13:01 Last Admin: 06/09/25 15:20 Dose: 10,000 unit Ceftriaxone Sodium/Dextrose (Rocephin/D5w 1gm Iv Premix) 1 gm in 50 mls @ 100 mls/hr IV X1 ONE Stop: 06/08/25 08:51 Last Infusion: 06/08/25 09:16 Dose: Infused Vancomycin/Sodium Chloride (Vancomycin/Ns 1 Gm Ivpb) 200 mls @ 120 mls/hr IV X1 ONE Stop: 06/08/25 10:04 Last Infusion: 06/08/25 15:36 Dose: Infused Sodium Chloride (Ns) 1,000 mls @ 999 mls/hr IV .Q1H1M ONE Stop: 06/08/25 09:25 Piperacillin Sod/Tazobactam (Sod 4.5 gm/ Sodium Chloride) 100 mls @ 200 mls/hr IV Q12HR LIU; Protocol Stop: 06/15/25 19:34 Last Infusion: 06/09/25 19:04 Dose: Infused Insulin Human Lispro (Insulin Lispro (Admelog) 1 Unit/0.01 Ml Unit) 0 unit SC AC LIU; Protocol Stop: 07/09/25 07:29 Insulin Human Lispro (Insulin Lispro (Admelog) 1 Unit/0.01 Ml Unit) 0 unit SC Q6HR LIU; Protocol Stop: 07/09/25 00:00 Last Admin: 06/09/25 18:00 Dose: Not Given Non-Formulary Medication (Amino Acids-Protein Hydrolys [Pro-Stat Sugar Free]) 1 each PO DAILY LIU Stop: 07/10/25 08:59 Pantoprazole Sodium (Pantoprazole Inj 40 Mg Vial) 40 mg IVP QDAY LIU Stop: 07/09/25 08:59 Pharmacy Consult (Vancomycin Pharmacy To Dose 1 Each Each) 1 each IV QDAY LIU Stop: 07/09/25 08:59 Sodium Chloride (Sodium Chloride Rt 10% 15 Ml Nebu) 5 ml INH X1 ONE Stop: 06/08/25 20:29 Last Admin: 06/08/25 22:27 Dose: 5 ml Assessment & Plan Plan Patient is 55 yr female with PMH of HFpEF (EF 50-55% on 03/2025), hypertension, diabetes, ESRD on HD T/Th/Sat, s/p left BKA on 03/25/2025 who presented to ED from [facility] for evaluation of altered mental status. Patient missed recent dialysis session. Cardiology was consulted for prolonged QT interval. #Prolonged QTc interval EKG from TC 543. EKG from 06/09 QTc 539. Electrolytes reviewed and normal limits. Medications were reviewed. Does not appear to be on any QT prolonging agent except for diphenhydramine which is classified as a low risk medication. Manual measurement of QTc is normal at 440 -continue abx therapy as needed Altered mental status secondary to acute metabolic encephalopathy Sepsis secondary to right leg cellulitis Hyperkalemia Uremia ESRD on HD Fluid overload secondary to missed dialysis session [facility] with cirrhosis Anion gap metabolic acidosis Insulin-dependent diabetes mellitus type 2 Primary care team to manage above conditions and ongoing care needs. Cardiology will sign off case. The patient's management plan was discussed with my attending physician Dr. Barclay. Jodi Arguelles, PGY-2
--- NOTE | 2025-06-10 15:16 | PC.SS ---
Late note 06-09-25: SS met with patient and spoke to son regarding her d/c plan. Pt is from [facility]. Pt is alert/oriented. Pt was admitted for Sepsis Secondary To Rle Cellulitis. Pt confirmed demographic and contact information is correct on facesheet. Pt is from [facility]. SS also spoke to Francoise from [facility] who states pt transfers with assistance into wheelchair and pt requires assistance with ADLS. SS spoke to patient's son, Lisa Aguilar who states he is patient's medical decision. Patient?s choice is to return home upon d/c. Per Francoise from [facility], pt does not require insurance authorization to return. Pt is established with Dialysis MWF at 1:40pm and utilizes medical transportation. D/C plan: Return to [facility] Next of Kin: Slick Aguilar, son, phone# [phone] PCP: Dr. Del Cid Address: Correct on facesheet
--- NOTE | 2025-06-10 16:17 | XR_ITS ---
Examination: Duplex scan of the lower extremity, unilateral right complete Date and time of exam: June 10, 2025, 1642 hours INDICATIONS: Nonhealing wound on the right leg and ankle several weeks Technique: Duplex scan of the extremity veins using B-mode/grayscale imaging and Doppler spectral analysis and color flow Attention is directed to internal echogenicity, compression and augmentation involving these veins, color flow assessment, spectral analysis Findings: Major deep venous structures in the extremity demonstrate normal course and caliber. There is no evidence of deep vein thrombosis. Normal color flow and spectral analysis Impression: Negative for DVT..
[2025-06-10] MEDS: VANCOMYCIN/NS 500 MG IVPB 100 ML 120 MG IV (17:19)
[2025-06-10] MEDS: ATORVASTATIN CALCIUM 20 MG TABLET 40 MG PO (20:31)
[2025-06-10] MEDS: DIPHENOXYLATE/ATROP SULF 1 TAB PO (20:32)
[2025-06-11] VITALS (22 sets, daily range): BP systolic 87–133; BP diastolic 42–87; PULSE 57–667; RESP 15–96; TEMP 36.1–36.6; O2SAT 98–100; BMI 29.2
[2025-06-11 05:51] LABS: Basophils # (Auto) 0.0 Thou/mm3 (0.0-0.2); Basophils % (Auto) 0 % (0-2.5); Eosinophils # (Auto) 0.6 Thou/mm3 (0.0-0.5); Eosinophils % (Auto) 8 % (0-10); Hematocrit 31.3 % (36.0-46.0); Hemoglobin 9.6 g/dL (12.0-16.0); Immature Granulocytes Auto 0.03 Thou/mm3 (0.00-0.00); Lymphocytes # (Auto) 0.7 Thou/mm3 (1.0-4.8); Lymphocytes % (Auto) 9 % (10-50); Mean Corpuscular HGB Conc 30.7 g/dl (31.0-37.0); Mean Corpuscular Hemoglobin 29.1 pg (25.0-35.0); Mean Corpuscular Volume 95 fL (80-100); Monocytes # (Auto) 0.6 Thou/mm3 (0.0-0.8); Monocytes % (Auto) 7 % (0-12); Neutrophils # (Auto) 5.7 Thou/mm3 (1.8-7.7); Neutrophils % (Auto) 75 % (37-80); Nucleated Red Blood Cell # 0.03 Thou/mm3 (0.00-0.00); Nucleated Red Blood Cell % 0 /100 WBC (0); Platelet Count 127 Thou/mm3 (140-440); RDW Standard Deviation 58.4 fL (36.4-46.3); Red Blood Count 3.30 Miln/mm3 (4.00-5.20); White Blood Count 7.6 Thou/mm3 (3.6-11.0)
[2025-06-11 06:10] LABS: Alanine Aminotransferase 38 U/L (10-49); Albumin, Serum 4.1 gm/dL (3.5-5.0); Albumin/Globulin Ratio 1.5 (1.2-2.2); Alkaline Phosphatase 90 U/L (46-116); Anion Gap 12 (7-16); Aspartate Amino Transferase 65 U/L (0-34); BUN/Creatinine Ratio 6 Ratio (12-20); Bilirubin,Total 0.9 mg/dL (0.3-1.2); Blood Urea Nitrogen 37 mg/dL (9-23); Calcium 8.1 mg/dL (8.3-10.6); Calcium (Corrected) 8.1 mg/dL (8.5-10.1); Carbon Dioxide 25.3 mMol/L (20.0-31.0); Chloride 103 mMol/L (98-107); Creatinine (Component) 5.9 mg/dL (0.6-1.3); Estimated Creatinine Clearance 9.7 mL/min (>60); Globulin 2.8 gm/dL (2.3-3.5); Glucose 92 mg/dL (74-106); Magnesium 2.5 mg/dL (1.6-2.6); Osmolality,Calculated 288 (275-295); Phosphorous 5.1 mg/dL (2.4-5.1); Potassium 4.5 mMol/L (3.4-5.1); Sodium 140 mMol/L (136-145); Total Protein 6.9 gm/dL (5.7-8.2); Vancomycin,Random 17.0 mcg/mL; eGFR 8 See Note
[2025-06-11] MEDS: EPOETIN ALFA-EPBX INJ 10,000 UNIT/ML VIAL (NON-ESRD) 10000 UNIT IV (09:34)
--- NOTE | 2025-06-11 09:46 | PD.RESPRO ---
Documentation for date of: 06/11/25 Subjective Subjective Interval history: History of present illness: Ms. Aguilar is a 54-year-old lady with extensive past medical history of uncontrolled hypertension and diabetes for many years ended up on dialysis 2 years ago under my care and has been coming to dialysis treatments on TTS (noncompliant with treatments due to loose stools) was admitted to the emergency department brought by paramedics with altered mental status and noted to have possible sepsis from the right leg wound. Patient was admitted a couple of months ago and had a left BKA for gangrene. She missed her dialysis session on Saturday. In ED white count 15.6, hemoglobin 11, platelets 137 sodium 138, potassium 6.9, bicarbonate 21.9, BUN 51, creatinine 8.8, blood sugar 82, calcium 8.2, total bilirubin 1.4, AST 44, ALT 17, alk phos 123, BNP 2473, albumin 3.9, Pro-Antwan 3.41, urinalysis shows a WBC 11. Abdominal pelvic CT showed liver cirrhosis with moderate ascites and anasarca. Head CT was negative. Patient will be admitted for sepsis secondary to RLE cellulitis//diabetic wounds. Nephrology consulted for emergency dialysis dialysis. Patient currently seen on dialysis. 06/09/25: Patient seen and assessed at bedside. No complaints. Answering questions appropriately, back at mental baseline. AOx2. Per patient, she is on HD MWF schedule, last session was Saturday. WBC improving. Potassium 5.2 (from 6.9). BUN 36 (from 51), Cr 6.4 (from 8.8), GFR 7 (from 5), phos 7.3. S/p HD -1L yesterday, plan for another session today. Strict INOs. Started on cefepime and vancomycin renally dosed. 06/10/25: Patient seen and assessed at bedside. Had 12 bowel movements overnight. Only removed 0.9L yesterday due to headaches. Potassium improved to 4.9 from 5.2. Plan for dialysis tomorrow to adhere to MWF schedule. 06/11/25: Patient seen during dialysis session. Tolerating session well. Continues to have multiple bowel movements overnight. Potassium 4.5, BUN 37, Cr 5.9. Able to remove 1.9 L on dialysis. Exam Vital Signs Temp Pulse Resp BP Pulse Ox O2 Del Method O2 Flow Rate 97.8 F 72 16 114/87 H 100 Nasal Cannula 1 06/11/25 08:02 06/11/25 09:30 06/11/25 08:02 06/11/25 09:30 06/11/25 08:02 06/11/25 08:00 06/11/25 08:02 Narrative Exam hysical Exam General: Awake and in no acute distress. Conversational and non-toxic appearing. HEENT: Normocephalic, atraumatic, mucous membranes dry. Heart: Regular rate and rhythm, normal S1 and S2, no murmurs appreciated. Lungs: Clear to auscultation bilaterally. Abdomen: Soft, nondistended, nontender, positive bowel sounds. No guarding or rebound tenderness. Neurologic: Alert and oriented x3, no gross neurological deficit, and patient able to move all extremities. Extremities: No edema. Dry wrinkled skin on right lower extremity. Left BKA nontender on palpation. New open wound at right lower leg. Trace edema of right lower extremity with tenderness on palpation, no erythema observed. Skin: Severe eczema and dry skin on upper extremities. No ecchymoses. Objective Labs 06/11/25 05:06 06/11/25 05:06 Labs: Laboratory Results - last 24 hr 06/11/25 05:06 WBC 7.6 RBC 3.30 L Hgb 9.6 L Hct 31.3 L MCV 95 MCH 29.1 MCHC 30.7 L RDW Std Deviation 58.4 H Plt Count 127 L Neut % (Auto) 75 Lymph % (Auto) 9 L Wells % (Auto) 7 Eos % (Auto) 8 Baso % (Auto) 0 Neut # (Auto) 5.7 Lymph # (Auto) 0.7 L Wells # (Auto) 0.6 Eos # (Auto) 0.6 H Baso # (Auto) 0.0 Immature Gran # (Auto) 0.03 H Absolute Nucleated RBC 0.03 H Immature Gran % 0 Nucleated RBC % 0 Sodium 140 Potassium 4.5 Chloride 103 Carbon Dioxide 25.3 Anion Gap 12 BUN 37 H Creatinine 5.9 H* D Estim Creat Clear Calc 9.7 L eGFR 8 L* BUN/Creatinine Ratio 6 L Glucose 92 Calculated Osmolality 288 Calcium 8.1 L Corrected Calcium 8.1 L Phosphorus 5.1 Magnesium 2.5 Total Bilirubin 0.9 AST 65 H ALT 38 Alkaline Phosphatase 90 Total Protein 6.9 Albumin 4.1 Globulin 2.8 Albumin/Globulin Ratio 1.5 Random Vancomycin 17.0 Quality Measures Quality Measures sepsis Current suspected stage: sepsis Possible source: unknown Blood cultures ordered: completed in ED Antibiotic ordered: Yes Assessment & Plan Assessment Current Active Medications: Generic Name Dose Route Start Last Admin Trade Name Freq PRN Reason Stop Dose Admin Acetaminophen 500 mg 06/08/25 18:16 06/09/25 16:59 Acetaminophen 500 Mg Tablet PO 07/08/25 18:15 500 mg Q6H PRN Administration fever >100 or pain 1-3 Acetic Acid 250 ml 06/09/25 14:15 06/10/25 08:19 Acetic Acid Irrig 0.25% 500 Ml Btl IRRIG 07/09/25 14:14 250 ml DAILY LIU Administration Ascorbic Acid 250 mg 06/09/25 21:00 06/11/25 09:40 Ascorbic Acid 250 Mg Tablet PO 07/09/25 20:59 Not Given BID LIU Atorvastatin Calcium 40 mg 06/09/25 21:00 06/10/25 20:31 Atorvastatin Calcium 20 Mg Tablet PO 07/09/25 20:59 40 mg HS LIU Administration Calamine 0 ml 06/09/25 11:15 06/10/25 11:58 Calamine Lotion 120 Ml Btl TOP 07/09/25 11:14 1 dose UD LIU Administration Cholestyramine Resin 1 pkt 06/10/25 09:00 06/11/25 09:41 Cholestyramine/Sucrose 1 Pkt Ea PO 07/10/25 08:59 Not Given QDAY LIU Dextrose 25 ml 06/08/25 18:41 Dextrose 50%-Water Inj 50 Ml Syringe IV 07/08/25 18:40 Q15MIN PRN BG 50-70 responsive npo pt Dextrose 50 ml 06/08/25 18:41 Dextrose 50%-Water Inj 50 Ml Syringe IV 07/08/25 18:40 Q15MIN PRN BG <50 OR BG <70 & pt unresponsive Diphenhydramine HCl 25 mg 06/10/25 07:39 Diphenhydramine 25 Mg Capsule PO 07/10/25 07:38 Q6H PRN ITCHING Diphenoxylate HCl/Atropine 1 tab 06/10/25 21:00 06/10/25 20:32 Diphenoxylate/Atrop Sulf 1 Tab PO 06/15/25 20:59 1 tab BID LIU Administration Glucagon 1 mg 06/08/25 18:41 Glucagon Inj 1 Mg Vial IM Q15MIN PRN BG <70, and no IV access Heparin Sodium (Porcine) 5,000 unit 06/08/25 20:00 06/11/25 09:41 Heparin Sod Inj 5000 Unit/Ml Vial SC 06/22/25 19:59 Not Given Q12HR LIU Albumin Human 25 gm in 100 mls @ 100 mls/hr 06/08/25 11:00 06/09/25 19:48 Albuminex 25% Ivpb IV Infused Q30MIN PRN Infusion DIALYSIS Cefepime HCl 1 gm/ Sodium 50 mls @ 100 mls/hr 06/09/25 11:15 06/10/25 19:21 Chloride IV 06/16/25 11:14 Infused DAILY LIU Infusion Insulin Human Lispro 0 unit 06/09/25 21:00 06/11/25 07:47 Insulin Lispro (Admelog) 1 Unit/0.01 Ml Unit SC 07/09/25 20:59 Not Given ACHS [facility] Protocol Loperamide HCl 2 mg 06/10/25 07:39 Loperamide 2 Mg Capsule PO 06/17/25 07:38 Q1H PRN DIARRHEA Melatonin 3 mg 06/09/25 08:40 06/09/25 21:20 Melatonin 3 Mg Tablet PO 07/09/25 08:39 3 mg HS PRN Administration INSOMNIA Ondansetron HCl 4 mg 06/08/25 18:16 Ondansetron Inj 2 Mg/Ml Inj 2 Ml IVP 07/08/25 18:15 Q6H PRN NAUSEA OR VOMITING Protocol Pharmacy Consult 1 each 06/08/25 18:41 Pharmacy Renal Dose Adjustment 1 Ea XX 07/08/25 18:40 PRN PRN Consult Pharmacy Consult 1 each 06/09/25 08:19 Vancomycin Pharmacy To Dose 1 Each Each IV 07/09/25 08:18 QDAY PRN COSULT Sevelamer Carbonate 800 mg 06/09/25 08:45 06/11/25 09:40 Sevelamer Carbonate 800 Mg Tablet PO 07/09/25 08:44 Not Given TIDWMEAL [facility] Protocol Vitamin B Complex/Vit C/Folic Acid 1 tab 06/10/25 09:00 06/11/25 09:42 Vit B12/Vit C/Fa (Nephrovite) Tablet PO 07/10/25 08:59 Not Given QDAY LIU Zinc Sulfate 220 mg 06/10/25 09:00 06/11/25 09:41 Zinc Sulfate 220 Mg Capsule PO 06/24/25 08:59 Not Given QDAY LIU Plan Patient is a 55-year-old female with PMHx of HTN, IDDM type II, HFpEF EF 55% on 08/2024, ESRD on HD TTS, presenting with right heel pain. Patient has been consulted to nephrology for managment of ESRD on HD #ESRD on hemodialysis MWF #Anemia of Chronic Kidney disease #Hyperkalemia-missed dialysis (resolved) - On HD MWF per patient, last session Saturday. Denies missing session however has history of noncompliance - Potassium 6.9 on admission - S/p urgent hemodialysis for 3 hours, 2K, ultrafiltration 2-3 L, Epogen 6000, no heparin. Removed 1L. Plan: - Dialysis today, removed 1.9L - Monitor renal function - Maintain fluid restriction 1500 mL - Avoid nephrotoxic agents - Renally dose medications - Strict INOs #Acute metabolic encephalopathy (resolved) #Sepsis secondary to right foot wound #S/p left BKA #PVD #IDDM2 #Chronic diarrhea #HFrEF EF 55% 08/2024 #MASH with cirrhosis #non Anion gap metabolic acidosis -Management per Primary Hospitalist team Thank you Jay for allowing me to participate in the care of Mr. Aguilar. Patient plan of care was discussed with the attending physician, Dr. Yap. Delmis Lazcano DO, PGY-1 Attending Provider Attestation/Addendum Patient currently seen and examined with resident physician Dr. Lazcano. Note reviewed, agree with findings and recommendations. Currently seen in telemetry. Resting comfortably. Significant edema noted in the right lower extremity. Wounds noted. On broad-spectrum antibiotics. Patient with a rt leg infection. left BKA. Significant diarrhea-cholestyramine, Lomotil ordered Right leg Doppler ultrasound showed no DVT Patient currently seen on dialysis. Tolerating dialysis without any problems. Hemodialysis for 3 hours, 2K, ultrafiltration 1-2 L, Epogen 6000, no heparin ordered. Plan of care discussed with the dialysis nurse. Please see dialysis flowsheet for further details.
[2025-06-11] MEDS: ALBUMIN HUMAN-KJDA 25% IVPB 25 GM/100 ML BTL IV (09:51)
--- NOTE | 2025-06-11 11:19 | PC.NURSE ---
pt in dialysis dc held
--- NOTE | 2025-06-11 12:44 | PC.SS ---
Addendum entered by Sandra Mejia 06/11/25 14:45: [facility] will provide transportation at 2pm and are aware pt is requiring O2. Original Note: SS was informed by Francoise from [facility] who explained pt came from their facility to hospital with a wound vac and she is requesting pt return with the wound vac. SS has informed bedside nurse, Francoise who is following up with the wound vac.
[2025-06-11] MEDS: CEFEPIME INJ 1 GM in SODIUM CHLORIDE 0.9% (Popper) 50 ML IV (12:52)
[2025-06-11] MEDS: Silvasorb Gel 45 ML TUBE TOP (12:54)
[2025-06-11] MEDS: Acetic Acid Irrig 0.25% 500 ML BTL 250 ML IRRIG (12:54)
--- NOTE | 2025-06-11 13:19 | PC.NURSE ---
Report given to Ade at [facility]
--- NOTE | 2025-06-11 17:39 | ESDS_ITS ---
<Statement entered by Rio Alvarado MD - 06/11/25 22:31> I saw and examined patient personally and supervised PGY 1 resident, Dr. Ritter with formulating a management plan. I agree with the documentation with the exceptions as listed below. Plan of care discussed with Attending Dr. Temi Alvarado MD PGY 2 Disclaimer: This note was dictated by speech recognition. Minor errors in renal nurse may be present due to voice recognition software. Planned Discharge Date 06/11/25 DS: Providers Provider Date of admission: 06/08/25 17:49 Primary care physician: Physician No Primary/Family Admitting Provider: Hernandez Membreno DO Attending Provider on Admission: Hernandez Membreno DO Consults: 06/08/25 17:46 Consult to Nephrology Routine Comment: Consulting Provider: Diego Yap 06/08/25 18:43 Referral Wound Care Routine Comment: 06/08/25 21:31 Referral Infection Control Routine Comment: Reason for Infection Control Referral: Current Dialysis Patient 06/08/25 21:36 Referral Wound Care Routine Comment: Instructions: new admit from snf with wound vac to amputated leg 06/08/25 21:37 Referral Nutritional Services Routine Comment: Instructions: wound vac 06/10/25 11:02 Consult to Cardiology Routine Comment: Prolonged QT Consulting Provider: Surjit Barclay Attending Provider on DC: Hernandez Membreno DO Discharging Provider: Blayne Ritter DO DS: Diagnosis Problem List Completed Was Problem List Reviewed/Reconciled?: Yes Hospital Course Hospital Course Hospital course: 55 year old female with history of HFpEF (EF 50-55% on 03/2025), hypertension, diabetes, ESRD on HD T/Th/Sat, 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 Davey presented to the ED on 06/08/2025 BIBA from SNF for evaluation of altered mental status. Patient was very drowsy, and as reported by nursing at bedside, would only nod yes or no to questions asked from her before. Per medics, OR staff reported the patient had skipped her dialysis Saturday due to feeling ill. Upon presentation, VSS: BP 124/75, T103.2, RR 16, HR 80, O2 96% in RA.? Labs showed WBC 15.6, Hgb 11.0, CMP consistent with ESRD, K+ 6.9, AG 17, BUN 51, CR 8.8, eGFR 5, T.?bili?1.4, AST 44, troponin 0.144, BNP 2473, Pro-Antwan 3.41. Imaging showed: ? CXR showed mild enlargement of cardiac contour, prominent vascular congestion with edema and/or pneumonia in the lung burch? ? CTAP revealed right pleural fluid, prominent vascular congestion, cirrhosis, atrophic kidneys, and atrophic uterus,?CT head negative for acute hemorrhage, mass effect, or midline shift? Workup for metabolic vs infectious causes of encephalopathy was negative. B12, folate, ammonia, TSH wnl. ? RLE CT: diffuse cellulitis. Patient underwent urgent hemodialysis on 06/08 with the removal of 1.5 L, and a 2nd and 3rd round of hemodialysis on 06/09 and 06/11 respectively. Over the course of her hospital stay, patient's mentation improved daily. was treated with cefepime (06/09-06/11) and vancomycin (06/08-06/11). However, as patient had shown prolonged QTc on EKG, 539, cardiology was consulted for its implications but also safety of discharging the patient on fluoroquinolones. Manual measurement of QTc was WNL 440 and cardiology cleared the patient for needed outpatient antibiotics. WBC count kept trending down to 7.6 on last day and patient stayed afebrile Patient was also noted to have diffuse scattered well- demarcated round darkly pigmented lesions on the extensor surfaces of BLE and upper back, which she kept skratching. Patient was also struck with diarrhea, attributable to her history of IBS, which improved with resuming her home meds loperamide and cholestyramine. Diagnosed with prurigo nodularis and treated with calamine lotion and topical hydrocortisone. At the time of discharge, patient is medically stable and deemed safe to return to his/her previous state of living. Admission Diagnoses: #Cellulitis of L LE and RUE #LUE wound s/p BKA 04/01/2025 #Open wound RT anterior lower LUE and perianal area #Leukocytosis #Anasarca secondary to #ESRD on HD (MWF) #Hyperkalemia #Atrophic kidneys #Prurigo nodularis #Hyperpigmented skin lesions #Pruritus #IBS #Altered mental status #Metabolic versus infectious encephalopathy #Acute hypoxic respiratory failure #Anasarca #MASH with cirrhosis #Hepatomegaly with irregular liver contour #Thrombocytopenia #Anemia, normocytic #Lactic Acidosis, resolved #AGMA, resolved #HFpEF EF 50 to 55% on 03/2025 #T2DM, insulin-dependent #Hyperlipidemia Discharge Instructions: - You have been started on silver gel for your wound. Apply daily. *Wound care until next follow up at [facility] 1) Right anterior lower leg (leonard): irrigate with 1/4 st acetic acid and pat dry. Apply thin layer of silvasorb gel and cover with allyven dressing daily and PRN for falling off or soiling. 2) Left medial and lateral BKA non healing incision: irrigate well with 1/4 st acetic acid, pat dry. Fill wounds with silvasorb gel. Cover with adaptic. Layer with abd pad and secure with rolled gauze. Negative rights heel and left stump pressure at all times - Follow up with wound care as outpatient. - Take antibiotic ciprofloxacin once a day for the next 12 days - You have been started on an antibiotic doxycyline. Take one tablet twice daily for 12 more days. - Continue the rest of your home medication as before. - Follow up with your primary care physician within 1 week of discharge. If you do not have a primary care physician, please follow up with the [facility] Residents clinic ([phone]) ? If you experience any new, worsening or persistent symptoms either call your primary doctor, or dial 911 or present to the emergency department. This case was discussed with my attending physician, Dr. Membreno, and senior resident, Dr Alvarado. Even though this this note was carefully revised there may still be minor errors in renal nurse due to voice recognition software. Blayne Ritter DO PGY I Time Spent with Patient Time attestation: Total time spent providing and/or coordinating discharge services: Time spent: Greater than 30 minutes Exam Vital Signs Temp Pulse Resp BP Pulse Ox O2 Del Method O2 Flow Rate 97.8 F 71 15 119/60 99 Room Air 1 06/11/25 12:00 06/11/25 12:06/11/25 12:06/11/25 12:06/11/25 12:06/11/25 12:00 06/11/25 11:31 Narrative Exam GENERAL: AOx3, no acute distress HEENT: mucous membranes moist, bilateral sclera anicteric CARDIOVASCULAR: regular rate and rhythm, S1/S2 present, 2/6 systolic murmur best heard at 2nd L intercostal, L AVF patent with palpable thrill PULMONARY: clear to auscultation bilaterally, no rales/rhonchi/wheezes ABDOMINAL: soft, non-tender, non-distended, no rebound/guarding, bowel sounds present, tympanic EXTREMITIES: no peripheral edema, multiple hyperpigmented skin papules across bilateral outer upper arms and on face. Present erythema, swelling, and warmth of RLE up to mid thigh. SKIN: warm and dry, findings as above NEURO: CN II-XII grossly intact, no focal deficits, alert, following commands Discharge Plan Plan Patient Disposition: Xfer Skilled Nsg Fac (SNF) Patient condition on transfer: Stable Care Plan Goals: - You have been started on silver gel for your wound. Apply daily. *Wound care until next follow up at [facility] W[facility] 1) Right anterior lower leg (leonard): irrigate with 1/4 st acetic acid and pat dry. Apply thin layer of silvasorb gel and cover with allyven dressing daily and PRN for falling off or soiling. 2) Left medial and lateral BKA non healing incision: irrigate well with 1/4 st acetic acid, pat dry. Fill wounds with silvasorb gel. Cover with adaptic. Layer with abd pad and secure with rolled gauze. Negative rights heel and left stump pressure at all times - Follow up with wound care as outpatient. - Take antibiotic ciprofloxacin once a day for the next 12 days - You have been started on an antibiotic doxycyline. Take one tablet twice daily for 12 more days. - Continue the rest of your home medication as before. - Follow up with your primary care physician within 1 week of discharge. If you do not have a primary care physician, please follow up with the [facility] Residents gio castro ([phone]) ? If you experience any new, worsening or persistent symptoms either call your primary doctor, or dial 911 or present to the emergency department. Prescriptions/Referrals Prescriptions/Med Rec: New acetic acid 0.25 % Solution 250 ml IRRIG DAILY 30 Days Qty: 7500 0RF SilvaSorb Gel,Extended Release 1 applic top DAILY 30 Days Qty: 42.5 3RF zinc sulfate 50 mg zinc (220 mg) Capsule 220 mg PO QDAY 30 Days Qty: 132 0RF doxycycline hyclate 100 mg capsule 100 mg PO BID 12 Days Qty: 24 0RF ciprofloxacin HCl 500 mg tablet 500 mg PO QDAY 12 Days Qty: 12 0RF Continued cholestyramine 4 gram powder 4 g PO QDAY Qty: 201.6 0RF Rx Instructions: administer w/meal; avoid other meds within 1hr before or 4-6hr after dose atorvastatin 20 mg Tablet 40 mg PO HS Qty: 30 0RF loperamide 2 mg Capsule 2 mg PO Q1H PRN (Reason: Diarrhea) Qty: 30 0RF hydrocodone-acetaminophen 5-325 mg Tablet 1 tab PO Q8HR MDD 15 PRN (Reason: Pain 4-6) Qty: 15 0RF melatonin 3 mg Tablet 3 mg PO HS PRN (Reason: insomnia) Qty: 30 0RF aspirin 81 mg Tablet,Delayed Release (Dr/Ec) 81 mg PO QDAY Qty: 30 0RF ascorbic acid (vitamin C) [Vitamin C] 250 mg Tablet 500 mg PO BID Qty: 30 0RF losartan 25 mg Tablet 100 mg PO QDAY Qty: 30 0RF acetaminophen [Pain Relief (acetaminophen)] 325 mg tablet 650 mg PO Q6H PRN (Reason: pain) sevelamer carbonate 800 mg tablet 800 mg PO .with meals Patient Comments: TAKE 2 TABLETS WITH EACH MEAL, AND 1 TABLET WITH EACH SNACK (2 SNACKS PER DAY) Michaelle-Dominick 0.8 mg tablet 1 tab PO QDAY Pro-Stat Sugar Free 15-100 gram-kcal/30 mL liquid 1 ea PO DAILY diphenhydramine HCl [Allergy Relief(diphenhydramin)] 25 mg capsule 25 mg PO Q6H PRN (Reason: itching) Discontinued cholestyramine (with sugar) 4 gram Powder In Packet 1 pkt PO QDAY Qty: 30 0RF Referrals: Evelin Forrester MD [Physician, Wound Care] No Primary/Family,Physician [Primary Care Provider] Outpatient Orders (i.e. Home Health, Labs, Imaging): Injection Mold Technician (Routine) Facility: [facility] - Location: Wound Healing Department Ordered By: Rio Alvarado Patient/Caregiver Discharge Instructions Education Materials: Nutrition for Wound Healing, Wound Infection Tx Print Language: Kyrgyz Stand Alone Forms: Samantha Award Info., Patient Portal Info Letter Discharge Order Discharge Orders: Discharge (Routine); Ordered 06/11/25 Ordered By: Blayne Ritter Quality Discharge Quality Measures VTE prophylaxis Attestestation MD Attestation I have discussed and was present for the essential components of the discharge history, physical examination, diagnosis, and discharge treatment plan with the resident. I agree with the patient's discharge care as documented by the resident and amended herein by me. Jay Membreno, . The patient understood all discharge instructions, all questions were answered satisfactorily. The patient was instructed to return to the Emergency Department is symptoms worsened or persisted. Patient significantly improved from time of admission, mentation back to baseline, after dialysis. The patient's cellulitis will continue a course of ciprofloxacin and doxycycline, see resident note above for additional details. I think the patient will also need dermatology follow-up for pruritus nodularis, patient does have a history of eczema however numerous itchy papular lesions on her upper extremities and back. Patient understood, she was stable, afebrile, tolerating p.o. intake and ambulatory at time of discharge home. Although this document has been carefully reviewed, there may still be some phonetic and other typographical errors. These errors are purely grammatical due to imperfections in the software program and should not be construed in any way to compromise the substance of the patient's medical care during this visit.
== END 2025-06-11 14:10 | disposition skilled nursing facility (03) | DRG 720 ==
LOC: SERX 17:40 → SERHOLD 17:55 → S2NX 20:29
PROVIDERS: Admitting Provider Student in an Organized Health Care Education/Training Program; Emergency Provider Emergency Medicine; Visit Provider Student in an Organized Health Care Education/Training Program
DX: A41.9 Sepsis, unspecified organism (principal); E11.22 Type 2 diabetes mellitus with diabetic chronic kidney disease; Z89.512 Acquired absence of left leg below knee; Z99.2 Dependence on renal dialysis; N18.6 End stage renal disease; G93.41 Metabolic encephalopathy; L03.115 Cellulitis of right lower limb; E87.5 Hyperkalemia; K74.60 Unspecified cirrhosis of liver; K75.81 Nonalcoholic steatohepatitis (NASH); E87.20 Acidosis, unspecified; Z79.4 Long term (current) use of insulin; E11.51 Type 2 diabetes mellitus with diabetic peripheral angiopathy without gangrene; I13.2 Hypertensive heart and chronic kidney disease with heart failure and with stage 5 chronic kidney disease, or end stage renal disease; N26.1 Atrophy of kidney (terminal); R16.0 Hepatomegaly, not elsewhere classified; D69.6 Thrombocytopenia, unspecified; E78.5 Hyperlipidemia, unspecified; R18.8 Other ascites; K29.70 Gastritis, unspecified, without bleeding; D63.1 Anemia in chronic kidney disease; J96.01 Acute respiratory failure with hypoxia; L03.116 Cellulitis of left lower limb; M86.8X6 Other osteomyelitis, lower leg; T87.44 Infection of amputation stump, left lower extremity; W57.XXXA Bitten or stung by nonvenomous insect and other nonvenomous arthropods, initial encounter; K52.9 Noninfective gastroenteritis and colitis, unspecified; E11.69 Type 2 diabetes mellitus with other specified complication; I50.42 Chronic combined systolic (congestive) and diastolic (congestive) heart failure; Y83.5 Amputation of limb(s) as the cause of abnormal reaction of the patient, or of later complication, without mention of misadventure at the time of the procedure; L28.1 Prurigo nodularis; Z87.442 Personal history of urinary calculi; L29.9 Pruritus, unspecified; Z91.199 Patient's noncompliance with other medical treatment and regimen due to unspecified reason
CPT/HCPCS: 36415; 70450; 73701; 74022; 74177; 80053; 80202; 81001; 81025; 82140; 82607; 82746; 83036; 83605; 83690; 83735; 83880; 84100; 84145; 84443; 84484; 85025; 85610; 85730; 87040; 87081; 87086; 87205; 87502; 89220; 90935; 92610; 93005; 93971; 94664; 96365; 96366; 99284; A4649; J0612; J0692; J0696; J1644; J2543; J3373; J7050; P9047; Q5106; Q9967; 94640; A9270; G0257

== ENCOUNTER → 2025-06-17 | Outpatient (CLI) | payer MEDICAID, SELFPAY | END | disposition home or self-care (01) | LOC: SWHD 13:53 | PROVIDERS: PCP Family Medicine; Referring Provider Family Medicine; Visit Provider Student in an Organized Health Care Education/Training Program | DX: T81.89XA Other complications of procedures, not elsewhere classified, initial encounter (principal); S81.802A Unspecified open wound, left lower leg, initial encounter; S81.801A Unspecified open wound, right lower leg, initial encounter; X58.XXXA Exposure to other specified factors, initial encounter; E11.621 Type 2 diabetes mellitus with foot ulcer; L97.812 Non-pressure chronic ulcer of other part of right lower leg with fat layer exposed; I73.9 Peripheral vascular disease, unspecified; N18.6 End stage renal disease; R60.0 Localized edema; Z99.2 Dependence on renal dialysis; Z89.512 Acquired absence of left leg below knee; I12.0 Hypertensive chronic kidney disease with stage 5 chronic kidney disease or end stage renal disease | CPT/HCPCS: 11044; A9270 ==

== ENCOUNTER → 2025-06-24 | Outpatient (CLI) | payer MEDICAID, SELFPAY | END | disposition home or self-care (01) | LOC: SWHD 11:06 | PROVIDERS: PCP Family Medicine; Referring Provider Family Medicine; Visit Provider Surgery | DX: T81.89XA Other complications of procedures, not elsewhere classified, initial encounter (principal); S81.802A Unspecified open wound, left lower leg, initial encounter; X58.XXXA Exposure to other specified factors, initial encounter; E11.621 Type 2 diabetes mellitus with foot ulcer; L97.812 Non-pressure chronic ulcer of other part of right lower leg with fat layer exposed; I73.9 Peripheral vascular disease, unspecified; N18.6 End stage renal disease; R60.0 Localized edema; Z99.2 Dependence on renal dialysis; Z89.512 Acquired absence of left leg below knee; I12.0 Hypertensive chronic kidney disease with stage 5 chronic kidney disease or end stage renal disease | CPT/HCPCS: 11042; A9270 ==

== ENCOUNTER → 2025-06-29 | Outpatient (CLI) | payer MEDICAID, SELFPAY | END | disposition home or self-care (01) | LOC: SWHD 09:21 | PROVIDERS: PCP Family Medicine; Referring Provider Family Medicine; Visit Provider Surgery | DX: T81.89XA Other complications of procedures, not elsewhere classified, initial encounter (principal); S81.802A Unspecified open wound, left lower leg, initial encounter; S81.801A Unspecified open wound, right lower leg, initial encounter; X58.XXXA Exposure to other specified factors, initial encounter; E11.621 Type 2 diabetes mellitus with foot ulcer; L97.812 Non-pressure chronic ulcer of other part of right lower leg with fat layer exposed; I73.9 Peripheral vascular disease, unspecified; N18.6 End stage renal disease; R60.0 Localized edema; Z99.2 Dependence on renal dialysis; Z89.512 Acquired absence of left leg below knee; I12.0 Hypertensive chronic kidney disease with stage 5 chronic kidney disease or end stage renal disease | CPT/HCPCS: 99213; A9270; G0463 ==

== ENCOUNTER → 2025-07-07 | Outpatient (CLI) | payer MEDICAID, SELFPAY | END | disposition home or self-care (01) | LOC: SWHD 08:37 | PROVIDERS: PCP Family Medicine; Referring Provider Family Medicine; Visit Provider Student in an Organized Health Care Education/Training Program | DX: T81.89XA Other complications of procedures, not elsewhere classified, initial encounter (principal); S81.802A Unspecified open wound, left lower leg, initial encounter; S81.801A Unspecified open wound, right lower leg, initial encounter; X58.XXXA Exposure to other specified factors, initial encounter; E11.621 Type 2 diabetes mellitus with foot ulcer; L97.812 Non-pressure chronic ulcer of other part of right lower leg with fat layer exposed; I73.9 Peripheral vascular disease, unspecified; N18.6 End stage renal disease; R60.0 Localized edema; Z99.2 Dependence on renal dialysis; Z89.512 Acquired absence of left leg below knee; I12.0 Hypertensive chronic kidney disease with stage 5 chronic kidney disease or end stage renal disease | CPT/HCPCS: 11042; 11045; 97597; A9270 ==